=== PATIENT | male | born 1945 | race Caucasian/White ===

== ENCOUNTER 2018-08-02 12:50 | Inpatient (IN) | payer OTHER ==
--- NOTE | 2018-08-02 13:44 | RAD REPORT ---
EXAM DESCRIPTION: RAD - Chest Single View - 08/02/2018 1:36 pm CLINICAL HISTORY: COPD;SOB Chest pain. COMPARISON: No comparisons FINDINGS: Portable technique limits examination quality. Advanced emphysematous changes are present throughout the lungs. The heart is normal in size. No disp laced fractures. IMPRESSION: Prominent COPD.
[2018-08-02] MEDS ORDERED: ALBUTEROL 2.5 MG/3 ML NEB SOL ONE (14:19)
[2018-08-02] MEDS ORDERED: predniSONE 20 MG TAB ONE (14:19)
[2018-08-02] MEDS ORDERED: IPRATROPIUM BROM 0.5MG/2.5ML ONE (14:19)
[2018-08-02 15:27] LABS: ALT/SGPT 20 U/L (12-78); AST/SGOT 7 U/L (15-37); Albumin 3.1 g/dL (3.4-5.0); Alkaline Phosphatase 176 U/L (45-117); BUN Blood Urea Nitrogen 33 mg/dL (7-18); Bicarbonate 26 mmol/L (21-32); Bilirubin Direct 0.4 mg/dL (0-0.2); Bilirubin Total 0.8 mg/dL (0.2-1.0); Glucose Level 167 mg/dL (74-106); Magnesium 2.1 mg/dL (1.8-2.4); NT PRO-BNP 522 pg/mL (<125); Potassium 4.6 mmol/L (3.5-5.1); Protein, Total 8.1 g/dL (6.4-8.2); Sodium Level 137 mmol/L (136-145); Troponin (Emerg Dept Use Only) < 0.02 ng/mL (0.0-0.045)
[2018-08-02 15:33] LABS: Protime INR 1.08
[2018-08-02 15:35] LABS: Absolute Lymphocytes (CBC) 1.2 K/uL (0.7-4.9); Absolute Monocytes 0.9 K/uL (0.1-1.3); Absolute Neutrophil 11.5 K/uL (1.8-8.0); Basophils % 0.3 % (0-1.3); Eosinophils % 0.3 % (0-4.4); Hematocrit 39.6 % (39.6-49.0); Lymphocytes % 8.6 % (15.3-44.8); MPV 8.6 fL (7.6-11.3); Monocytes % 6.5 % (3.3-12.3); RBC Red Blood Cell Count 4.42 M/uL (4.33-5.43)
[2018-08-02] MEDS ORDERED: HYDROCODONE/APAP 5/325 MG TAB ONE (16:14)
[2018-08-02] MEDS ORDERED: LEVALBUTEROL 1.25 MG/3 ML NEB ONE (16:14)
--- NOTE | 2018-08-02 17:10 | EDPHYS ---
Physician Documentation [facility] Name: Frank López Age: 73 yrs Sex: Male : 1945 Arrival Date: 08/02/2018 Time: 12:52 Bed 8 Private MD: ED Physician Alejandro Medeiros HPI: 08/02 14:00 This 73 yrs old Male presents to ER via Wheelchair with complaints of pm1 Breathing Difficulty. 14:00 The patient has shortness of breath at rest. Onset: The symptoms/episode began/occurred pm1 5 day(s) ago. Duration: The symptoms are chronic. The patient's shortness of breath is aggravated by light activity, is alleviated by nothing. Associated signs and symptoms: Pertinent positives: productive cough, Pertinent negatives: chest pain, diaphoresis, dizziness, fever, nausea, vomiting. Severity of symptoms: in the emergency department the symptoms are worse. The patient has experienced similar episodes in the past, chronically. The patient has not recently seen a physician, the patient's primary care provider is Dr. VALDIVIA. Patient with Hx of COPD. Uses oxygen at home typically 3-4 L. Shortness of breath progressively getting worse over the past 5 days. Today the patient had to use 6L NC. Shortness of breath did not improve and his O2 saturation only increased to 90% with 6L. Historical: - Allergies: 12:56 Codeine; la1 12:56 Sulfa (Sulfonamide Antibiotics); la1 - PMHx: 12:56 COPD; nephrectomy; Hypertension; Diabetes - NIDDM; High Cholesterol; la1 - Immunization history:: Adult Immunizations up to date. - Social history:: Smoking status: Patient/guardian denies using tobacco, the patient reports quitting approximately 1 years ago. - Ebola Screening: : No symptoms or risks identified at this time. ROS: 14:00 Constitutional: Negative for fever, chills, and weight loss, Eyes: Negative for injury, pm1 pain, redness, and discharge, ENT: Negative for injury, pain, and discharge, Neck: Negative for injury, pain, and swelling, Cardiovascular: Negative for chest pain, palpitations, and edema, Abdomen/GI: Negative for abdominal pain, nausea, vomiting, diarrhea, and constipation. 14:00 Back: Negative for injury and pain, : Negative for injury, bleeding, discharge, and swelling, MS/Extremity: Negative for injury and deformity, Skin: Negative for injury, rash, and discoloration, Neuro: Negative for headache, weakness, numbness, tingling, and seizure. 14:00 Respiratory: Positive for cough, dyspnea on exertion, shortness of breath, wheezing. Exam: 14:00 Constitutional: This is a well developed, well nourished patient who is awake, alert, pm1 and in no acute distress. Head/Face: Normocephalic, atraumatic. Eyes: Pupils equal round and reactive to light, extra-ocular motions intact. Lids and lashes normal. Conjunctiva and sclera are non-icteric and not injected. Cornea within normal limits. Periorbital areas with no swelling, redness, or edema. ENT: Nares patent. No nasal discharge, no septal abnormalities noted. Tympanic membranes are normal and external auditory canals are clear. Oropharynx with no redness, swelling, or masses, exudates, or evidence of obstruction, uvula midline. Mucous membranes moist. Neck: Trachea midline, no thyromegaly or masses palpated, and no cervical lymphadenopathy. Supple, full range of motion without nuchal rigidity, or vertebral point tenderness. No Meningismus. Chest/axilla: Normal chest wall appearance and motion. Nontender with no deformity. No lesions are appreciated. Cardiovascular: Regular rate and rhythm with a normal S1 and S2. No gallops, murmurs, or rubs. Normal PMI, no JVD. No pulse deficits. 14:00 Abdomen/GI: Soft, non-tender, with normal bowel sounds. No distension or tympany. No guarding or rebound. No evidence of tenderness throughout. Back: No spinal tenderness. No costovertebral tenderness. Full range of motion. Skin: Warm, dry with normal turgor. Normal color with no rashes, no lesions, and no evidence of cellulitis. MS/ Extremity: Pulses equal, no cyanosis. Neurovascular intact. Full, normal range of motion. 14:00 Respiratory: the patient does not display signs of respiratory distress, Breath sounds: wheezing: is heard diffusely. 14:00 Neuro: Orientation: is normal, Motor: is normal, moves all fours. Vital Signs: 12:56 BP 154 / 86; Pulse 108; Resp 22; Temp 98.4; Pulse Ox 90% on 6 lpm NC; Weight 99.79 kg; la1 Height 5 ft. 9 in. (175.26 cm); 14:30 BP 127 / 82; Pulse 105; Resp 24; Pulse Ox 96% ; bp 15:21 BP 131 / 112; Pulse 106; Resp 24; Pulse Ox 95% on 5 lpm NC; bp 16:10 BP 126 / 82; Pulse 108; Resp 13; Pulse Ox 96% on Nebulizer Mask; bp 17:49 BP 122 / 67; Pulse 109; Resp 28; Pulse Ox 94% on 4 lpm NC; bp 18:44 BP 121 / 65; Pulse 106; Resp 23; Pulse Ox 93% ; bp 19:06 BP 110 / 68; Pulse 100; Resp 22 S; Pulse Ox 94% on 4 lpm NC; jd3 19:54 BP 137 / 99; Pulse 94; Resp 17 S; Pulse Ox 94% on 4 lpm NC; jd3 12:56 Body Mass Index 32.49 (99.79 kg, 175.26 cm) la1 MDM: 13:16 Patient medically screened. pm1 17:01 Data reviewed: vital signs. Data interpreted: Pulse oximetry: on room air is 96 %. pm1 Interpretation: normal. Counseling: I had a detailed discussion with the patient and/or guardian regarding: the historical points, exam findings, and any diagnostic results supporting the discharge/admit diagnosis, lab results, radiology results, the need for further work-up and treatment in the hospital. 19:32 ED course: Patient does not want to be transferred to the [place]. Would like to be admitted pm1 to the hospital here. 08/02 13:25 Order name: Basic Metabolic Panel; Complete Time: 15:45 pm1 08/02 13:25 Order name: CBC with Diff; Complete Time: 15:45 pm1 08/02 13:25 Order name: LFT's; Complete Time: 15:45 pm1 08/02 13:25 Order name: Magnesium; Complete Time: 15:45 pm1 08/02 13:25 Order name: NT PRO-BNP; Complete Time: 15:45 pm1 08/02 13:25 Order name: PT-INR; Complete Time: 15:45 pm1 08/02 13:25 Order name: Troponin (emerg Dept Use Only); Complete Time: 15:45 pm1 08/02 13:25 Order name: XRAY Chest (1 view); Complete Time: 14:06 pm1 08/02 13:25 Order name: Flu; Complete Time: 14:37 pm1 08/02 13:25 Order name: Blood Culture Adult (2) pm1 08/02 13:25 Order name: EKG; Complete Time: 13:26 pm1 08/02 13:25 Order name: Cardiac monitoring; Complete Time: 13:29 pm1 08/02 13:25 Order name: EKG - Nurse/Tech; Complete Time: 13:29 pm1 08/02 13:25 Order name: IV Saline Lock; Complete Time: 13:56 pm1 08/02 13:25 Order name: Labs collected and sent; Complete Time: 15:20 pm1 08/02 13:25 Order name: O2 Per Protocol; Complete Time: 13:30 pm1 08/02 13:25 Order name: O2 Sat Monitoring; Complete Time: 13:29 pm1 Administered Medications: 13:45 Drug: Albuterol - atroVENT (3:1) (2.5 mg - 0.5 mg) 3 ml Route: Nebulizer; bp 15:20 Follow up: Response: Marked relief of symptoms bp 13:45 Drug: predniSONE 60 mg Route: PO; bp 15:19 Follow up: Response: No adverse reaction bp 15:55 Drug: Xopenex (3) 1.25 mg Route: Inhalation; bp 15:55 Drug: [place] 5 mg-325 mg 1 tabs Route: PO; bp 16:57 Follow up: Response: No adverse reaction; Pain is decreased bp 17:10 Drug: Rocephin 1 grams Route: IV; Rate: calculated rate; Site: right forearm; bp 17:49 Follow up: IV Status: Completed infusion; IV Intake: 100ml bp 18:30 Drug: AZITHromycin 500 mg Route: IVPB; Infused Over: 1 hrs; Site: right forearm; bp 19:43 Follow up: Response: No adverse reaction; IV Status: Completed infusion jd3 Disposition: 08/02/18 19:34 Hospitalization ordered by Andre Ortiz for Observation. Preliminary diagnosis is Chronic obstructive pulmonary disease with (acute) exacerbation. - Bed requested for Telemetry/MedSurg (observation). - Status is Observation. ea - Condition is Stable. - Problem is new. - Symptoms have improved. UTI on Admission? No Addendum: 08/13/2018 15:46 Co-signature as Attending Physician, Alejandro Medeiros MD Available for consultation at p s1 all times. . Signatures: Dispatcher [employer] EDRosales Dietz RN RN la1 Anastasia Escobar RN RN cg Brian Snowden, SALES REPRESENTATIVE ADVERTISING SALES REPRESENTATIVE ADVERTISING pm1 Meagan Walters RN RN ea Pato Fregoso RN Alejandro Dick MD MD ps1 Davies, Jonathon RN jd3 Corrections: (The following items were deleted from the chart) 08/02 19:33 17:10 08/02/2018 17:10 Transfer ordered to [facility] [address] Diagnosis is Chronic obstructive pulmonary disease with (acute) exacerbation. Reason for transfer: Private Physician at Transferring [facility]. Accepting physician is [place]. Condition is Stable. Problem is new. Symptoms have improved. pm1 20:12 19:34 Hospitalization Ordered by Andre Ortiz MD for Observation. Preliminary cg diagnosis is Chronic obstructive pulmonary disease with (acute) exacerbation. Bed requested for Telemetry/MedSurg (observation). Status is Observation. Condition is Stable. Problem is new. Symptoms have improved. UTI on Admission? No. pm1 21:04 20:12 08/02/2018 19:34 Hospitalization Ordered by Andre Ortiz MD for Observation. ea Preliminary diagnosis is Chronic obstructive pulmonary disease with (acute) exacerbation. Bed requested for Telemetry/MedSurg (observation). Status is Observation. Condition is Stable. Problem is new. Symptoms have improved. UTI on Admission? No. cg
--- NOTE | 2018-08-02 17:10 | ER ---
Nurse's Notes [facility] Name: Frank López Age: 73 yrs Sex: Male : 1945 Arrival Date: 08/02/2018 Time: 12:52 Bed 8 Private MD: Diagnosis: Chronic obstructive pulmonary disease with (acute) exacerbation Presentation: 08/02 12:54 Presenting complaint: Patient states: I have COPD and I have been having increasing SOB la1 over the last 5 days. I am supposed to be on 2L 02 but I have it at six and my sats are still only 90%. Transition of care: patient was not received from another setting of care. Onset of symptoms was August 02, 2018. Risk Assessment: Do you want to hurt yourself or someone else? Patient reports no desire to harm self or others. Initial Sepsis Screen: Does the patient meet any 2 criteria? No. Patient's initial sepsis screen is negative. Does the patient have a suspected source of infection? No. Patient's initial sepsis screen is negative. Care prior to arrival: None. 12:54 Method Of Arrival: Wheelchair la1 12:54 Acuity: GAVI 3 la1 Triage Assessment: 19:42 Respiratory: Reports shortness of breath at rest Airway is patent Respiratory effort is jd3 even, unlabored, Respiratory pattern is regular, symmetrical, tachypnea the patient has mild shortness of breath. 19:42 Respiratory: Onset: The symptoms/episode began/occurred gradually. jd3 Historical: - Allergies: 12:56 Codeine; la1 12:56 Sulfa (Sulfonamide Antibiotics); la1 - PMHx: 12:56 COPD; nephrectomy; Hypertension; Diabetes - NIDDM; High Cholesterol; la1 - Immunization history:: Adult Immunizations up to date. - Social history:: Smoking status: Patient/guardian denies using tobacco, the patient reports quitting approximately 1 years ago. - Ebola Screening: : No symptoms or risks identified at this time. Screenin:17 Abuse screen: Denies threats or abuse. Denies injuries from another. Nutritional bp screening: No deficits noted. Tuberculosis screening: No symptoms or risk factors identified. Fall Risk None identified. Assessment: 13:16 General: Appears in no apparent distress. comfortable, obese, Behavior is calm, bp cooperative, appropriate for age. Pain: Denies pain. Neuro: Level of Consciousness is awake, alert, obeys commands, Oriented to person, place, time, situation, Appropriate for age. Cardiovascular: Rhythm is sinus tachycardia. Respiratory: Airway is patent Respiratory effort is even, labored, Respiratory pattern is tachypnea Breath sounds with wheezes. GI: No signs and/or symptoms were reported involving the gastrointestinal system. : No signs and/or symptoms were reported regarding the genitourinary system. EENT: No deficits noted. Derm: No deficits noted. Musculoskeletal: Circulation, motion, and sensation intact. Range of motion: intact in all extremities. 14:38 Reassessment: UNABLE TO OBTAIN BLOOD SPECIMEN, PHLEBOTOMY CONTACTED. bp 15:20 Reassessment: ALL CURRENT ORDERS COMPLETED, RESULTS PENDING. bp 17:00 Reassessment: HOSPITALIST DEFERRING ADMIT IN FAVOR OF [facility]. ABX INFUSING. bp 18:00 Reassessment: [facility], RESPONSE PENDING. NO S/S ACUTE bp DISTRESS AT THIS TIME. 19:06 Reassessment: Patient appears in no apparent distress at this time. No changes from jd3 previously documented assessment. Patient and/or family updated on plan of care and expected duration. Pain level reassessed. Patient is alert, oriented x 3, equal unlabored respirations, skin warm/dry/pink. 19:41 Reassessment: Patient appears in no apparent distress at this time. Patient and/or jd3 family updated on plan of care and expected duration. Pain level reassessed. Patient is alert, oriented x 3, equal unlabored respirations, skin warm/dry/pink. pt on phone with family member, and talking with provider, pt decided he wanted to hospitalized here [facility]. 19:53 Reassessment: Patient appears in no apparent distress at this time. No changes from jd3 previously documented assessment. Patient and/or family updated on plan of care and expected duration. Pain level reassessed. Patient is alert, oriented x 3, equal unlabored respirations, skin warm/dry/pink. Vital Signs: 12:56 BP 154 / 86; Pulse 108; Resp 22; Temp 98.4; Pulse Ox 90% on 6 lpm NC; Weight 99.79 kg; la1 Height 5 ft. 9 in. (175.26 cm); 14:30 BP 127 / 82; Pulse 105; Resp 24; Pulse Ox 96% ; bp 15:21 BP 131 / 112; Pulse 106; Resp 24; Pulse Ox 95% on 5 lpm NC; bp 16:10 BP 126 / 82; Pulse 108; Resp 13; Pulse Ox 96% on Nebulizer Mask; bp 17:49 BP 122 / 67; Pulse 109; Resp 28; Pulse Ox 94% on 4 lpm NC; bp 18:44 BP 121 / 65; Pulse 106; Resp 23; Pulse Ox 93% ; bp 19:06 BP 110 / 68; Pulse 100; Resp 22 S; Pulse Ox 94% on 4 lpm NC; jd3 19:54 BP 137 / 99; Pulse 94; Resp 17 S; Pulse Ox 94% on 4 lpm NC; jd3 12:56 Body Mass Index 32.49 (99.79 kg, 175.26 cm) la1 ED Course: 12:52 Patient arrived in ED. mr 12:55 Triage completed. la1 12:57 Arm band placed on right wrist. la1 13:06 Pato Fregoso RN is Primary Nurse. bp 13:16 Brian Snowden NP is PHCP. pm1 13:16 Alejandro Medeiros MD is Attending Physician. pm1 13:17 Patient has correct armband on for positive identification. Placed in gown. Bed in low bp position. Call light in reach. Side rails up X2. Adult w/ patient. 13:25 Inserted saline lock: 20 gauge in right forearm, using aseptic technique. bp 13:33 X-ray completed. Portable x-ray completed in exam room. Patient tolerated procedure sg4 well. 13:34 XRAY Chest (1 view) In Process Unspecified. EDMS 19:05 Primary Nurse role handed off by Pato Fregoso RN jd3 19:05 Rubén Grimes RN is Primary Nurse. jd3 19:33 Andre Ortiz MD is Hospitalizing Provider. pm1 20:06 No provider procedures requiring assistance completed. Patient admitted, IV remains in jd3 place. Administered Medications: 13:45 Drug: Albuterol - atroVENT (3:1) (2.5 mg - 0.5 mg) 3 ml Route: Nebulizer; bp 15:20 Follow up: Response: Marked relief of symptoms bp 13:45 Drug: predniSONE 60 mg Route: PO; bp 15:19 Follow up: Response: No adverse reaction bp 15:55 Drug: Xopenex (3) 1.25 mg Route: Inhalation; bp 15:55 Drug: [place] 5 mg-325 mg 1 tabs Route: PO; bp 16:57 Follow up: Response: No adverse reaction; Pain is decreased bp 17:10 Drug: Rocephin 1 grams Route: IV; Rate: calculated rate; Site: right forearm; bp 17:49 Follow up: IV Status: Completed infusion; IV Intake: 100ml bp 18:30 Drug: AZITHromycin 500 mg Route: IVPB; Infused Over: 1 hrs; Site: right forearm; bp 19:43 Follow up: Response: No adverse reaction; IV Status: Completed infusion jd3 Intake: 17:49 IV: 100ml; Total: 100ml. bp Outcome: 17:10 ER care complete, transfer ordered by MD. pm1 19:34 Decision to Hospitalize by Provider. pm1 21:00 Admitted to Med/surg accompanied by tech, via stretcher, with chart. jd3 21:00 Condition: stable 21:00 Instructed on the need for admit, Demonstrated understanding of instructions. 21:04 Patient left the ED. bridgette Signatures: Dispatcher [employer] EDWY Juan Diego Linda SalehRosales RN RN la1 Brian Snowden, TECHNICAL SUPPORT TECHNICIAN TECHNICAL SUPPORT TECHNICIAN pm1 Meagan Walters RN RN ea Davies, Jonathon, RN RN jd3 Peltier, Brian, RN RN bp Garcia, Susana 4
[2018-08-02] MEDS ORDERED: CEFTRIAXONE 1000 MG/VIAL ONE (17:25)
[2018-08-02] MEDS ORDERED: NA CHLORIDE 0.9% 100 ML IV ONE (17:25)
[2018-08-02] MEDS ORDERED: AZITHROMYCIN 500 MG/250 ML BAG ONE (18:34)
--- NOTE | 2018-08-02 20:12 | P.HP ---
Certification for Inpatient Patient admitted to: Inpatient With expected LOS: >2 Midnights Practitioner: I am a practitioner with admitting privileges, knowledge of patient current condition, hospital course, and medical plan of care. Services: Services provided to patient in accordance with Admission requirements found in Title 42 Section 412.3 of the Code of Federal Regulations Patient History Date of Service: 08/02/18 Reason for admission: COPD exacerbation History of Present Illness: Mr Hubbard is a 73 years old male with history of NIDDM, CKD, Dyslipidemia, COPD on home oxygen at 2-3 L per NC, who start about 5 days ago with progressive SOB associated with dry cough. He was noticed that was getting more tired walking short distances. His sputum changed from clear to yellowish. He denied fever or chills. The patient today was feeling significantly worse, he increased his O2 to 6 L, with no improvement. At arrival his O2 Sat was 93 % on 6 L, afebrile, dyspneic. He improved after received steroids and breathing treatments. Home medications list reviewed: Yes - Past Medical/Surgical History -: COPD -: diabetes mellitus II -: CKD -: dyslipidemia -: Nephrectomy - Family History Family History: Reviewed- Non-Contributory - Social History Smoking Status: Former smoker Alcohol use: No CD- Drugs: No Place of Residence: Home Review of Systems 10-point ROS is otherwise unremarkable Physical Examination - Physical Exam General: Alert, In no apparent distress HEENT: Atraumatic, PERRLA, Mucous membr. moist/pink, EOMI, Sclerae nonicteric Neck: Supple, 2+ carotid pulse no bruit, No LAD, Without JVD or thyroid abnormality Respiratory: Diminished, Expiratory wheezes Cardiovascular: Regular rate/rhythm, Normal S1 S2 Gastrointestinal: Normal bowel sounds, No tenderness Musculoskeletal: No tenderness Integumentary: No rashes Neurological: Normal speech, Normal strength at 5/5 x4 extr, Normal tone, Normal affect Lymphatics: No axilla or inguinal lymphadenopathy - Studies Laboratory Data (last 24 hrs) 08/02/18 14:51: PT 12.7 H, INR 1.08 08/02/18 14:51: WBC 13.6 H, Hgb 13.1 L, Hct 39.6, Plt Count 261 08/02/18 14:51: Sodium 137, Potassium 4.6, BUN 33 H, Creatinine 1.91 H, Glucose 167 H, Magnesium 2.1, Total Bilirubin 0.8, AST 7 L, ALT 20, Alkaline Phosphatase 176 H Microbiology Data (last 24 hrs): 08/02/18 13:55 Nasopharnyx Influenza Type A Antigen Screen - Final 08/02/18 13:55 Nasopharnyx Influenza Type B Antigen Screen - Final Assessment and Plan - Problems (Diagnosis) (1) COPD exacerbation Current Visit: Yes Status: Acute (2) Diabetes mellitus Current Visit: Yes Status: Acute Qualifiers: Diabetes mellitus type: type 2 Diabetes mellitus senior living insulin use: without senior living use Diabetes mellitus complication status: with unspecified complications Qualified Code(s): E11.8 - Type 2 diabetes mellitus with unspecified complications (3) Dyslipidemia Current Visit: Yes Status: Acute (4) CKD (chronic kidney disease) Current Visit: Yes Status: Acute Qualifiers: Chronic kidney disease stage: unspecified stage Qualified Code(s): N18.9 - Chronic kidney disease, unspecified - Plan The patient will be admitted to the hospital due to COPD exacerbation. He has leukocytosis, no fever, CXR shows chronic changes consistent with COPD, no obvious infiltrate. Will order empiric IV broad spectrum antibiotics, IV steroids and breathing treatments. Consult Dr Garcia. - Advance Directives Does patient have a Living Will: No Does patient have a Durable POA for Healthcare: No - Code Status/Comfort Care Code Status Assessed: Yes Code Status: Full Code
[2018-08-02] MEDS ORDERED: IPRATROPIUM BROM 0.5MG/2.5ML NEB PRN (21:24)
[2018-08-02] MEDS ORDERED: ALBUTEROL 2.5 MG/3 ML NEB SOL NEB PRN (21:24)
[2018-08-02] MEDS: INSULIN -REGULAR HUMAN 50 UNIT/0.5 ML ML SQ SCH (21:24)
[2018-08-02] MEDS ORDERED: ACETAMINOPHEN 500 MG TAB PO PRN (21:24)
[2018-08-02] MEDS ORDERED: ONDANSETRON 4 MG/2 ML VIAL IV PRN (21:24)
[2018-08-02] MEDS: NA CHLORIDE 0.9% 1,000 ML IV SCH (21:34)
[2018-08-02 22:02] VITALS: BMI 32.5
[2018-08-02] MEDS: METHYLPREDNISOLONE 125 MG INJ IV SCH (23:27)
[2018-08-02] MEDS: TRAMADOL HCL 50 MG TAB PO PRN (23:27)
[2018-08-03] MEDS: NA CHLORIDE 0.9% 1,000 ML IV SCH (05:25)
[2018-08-03] MEDS: METHYLPREDNISOLONE 125 MG INJ IV SCH ×3 (05:25→17:17)
[2018-08-03 05:46] LABS: Absolute Lymphocytes (CBC) 0.4 K/uL (0.7-4.9); Absolute Monocytes 0.2 K/uL (0.1-1.3); Absolute Neutrophil 8.6 K/uL (1.8-8.0); Basophils % 0.1 % (0-1.3); Hematocrit 36.8 % (39.6-49.0); Lymphocytes % 4.1 % (15.3-44.8); MPV 8.7 fL (7.6-11.3); Monocytes % 1.7 % (3.3-12.3); RBC Red Blood Cell Count 4.07 M/uL (4.33-5.43)
[2018-08-03 05:59] LABS: Potassium 4.8 mmol/L (3.5-5.1)
[2018-08-03 07:45] LABS: Blood Morphology Comment NOT SEEN (NOT SEEN); Platelet Estimate ADEQ; Urine White Blood Cell Casts OK
--- NOTE | 2018-08-03 07:56 | EKG ---
Test Date: 2018-08-02 Test Time: 13:14:22 Manager Of Global: GILA MEASUREMENT RESULTS: Intervals: Rate: 98 ID: [id number] QRSD: 86 QT: 346 QTc: 441 [place]: P: 79 ID: [id number] QRS: 62 T: 78 INTERPRETIVE STATEMENTS: Normal sinus rhythm Normal ECG Compared to ECG 12/15/2006 13:55:57 Sinus bradycardia no longer present T-wave abnormality no longer present Possible ischemia no longer present Electronically Signed On 08-03-18 07:54:03 PLASTICS SPREADING MACHINE OPERATOR by Humble Will
[2018-08-03] MEDS: INSULIN -REGULAR HUMAN 50 UNIT/0.5 ML ML SQ SCH ×4 (08:25→21:09)
[2018-08-03] MEDS ORDERED: AZITHROMYCIN IV 500 MG in NA CHLORIDE 0.9% 250 ML IVPB SCH ×2 (09:00→17:00)
[2018-08-03] MEDS ORDERED: CEFTRIAXONE 1 GM/NS 50 ML 1 GM/50 ML BAG IV SCH (09:00)
[2018-08-03] MEDS: TRAMADOL HCL 50 MG TAB PO PRN (10:42)
[2018-08-03] MEDS ORDERED: CEFTRIAXONE/SWI 1gm 1 GM/10 ML SYR IV SCH (17:00)
[2018-08-03] MEDS ORDERED: BUSPIRONE HCL 5 MG TABLET PO PRN (17:39)
--- NOTE | 2018-08-03 17:50 | P.PN ---
Subjective Date of Service: 08/03/18 Primary Care Provider: Dr. Cornell ([facility]) Chief Complaint: COPD exacerbation Subjective: No new changes, No C/O voiced, Improving Patient seen and examined at bedside. No family at bedside. Chart reviewed and case discussed with nursing staff. Review of Systems 10-point ROS is otherwise unremarkable Physical Examination - Vital Signs Temperature: 98.7 F Blood Pressure: 175/99 Pulse: 88 Respirations: 20 Pulse Ox (%): 93 - Physical Exam General: Alert, In no apparent distress, Oriented x3 HEENT: Atraumatic, PERRLA, EOMI Neck: Supple, JVD not distended Respiratory: Expiratory wheezes Cardiovascular: Regular rate/rhythm, Normal S1 S2 Gastrointestinal: Normal bowel sounds, No tenderness Musculoskeletal: No tenderness Integumentary: No rashes Neurological: Normal speech, Normal tone, Normal affect Lymphatics: No axilla or inguinal lymphadenopathy - Studies Microbiology Data (last 24 hrs): 08/02/18 13:55 Nasopharnyx Influenza Type A Antigen Screen - Final 08/02/18 13:55 Nasopharnyx Influenza Type B Antigen Screen - Final Assessment And Plan - Current Problems (Diagnosis) (1) COPD exacerbation Current Visit: Yes Status: Acute (2) Diabetes mellitus Current Visit: Yes Status: Acute Qualifiers: Diabetes mellitus type: type 2 Diabetes mellitus half-way insulin use: without half-way use Diabetes mellitus complication status: with unspecified complications Qualified Code(s): E11.8 - Type 2 diabetes mellitus with unspecified complications (3) CKD (chronic kidney disease) Current Visit: Yes Status: Acute Qualifiers: Chronic kidney disease stage: unspecified stage Qualified Code(s): N18.9 - Chronic kidney disease, unspecified (4) Dyslipidemia Current Visit: Yes Status: Acute - Plan Patient Problems: COPD exacerbation (Acute) J44.1 Improving. Continue IV antibiotics, DuoNeb, IV steroids Oxygen per protocol; it seems that patient is already on baseline home oxygen Pulmonology consult. CKD (chronic kidney disease) (Acute) N18.9 Avoid nephrotoxic drugs. Monitor creatinine Diabetes mellitus (Acute) E11.9 Continue Accu-Cheks, mild sliding scale insulin. Strict blood sugar monitoring and patient is on steroids Dyslipidemia (Acute) E78.5 Continue statin DVT prophylaxis: Lovenox GI prophylaxis: Not needed Diet: Heart healthy Disposition: Pending symptomatic improvement. If doing well morning, discharge home tomorrow. Physician Review: Patient Assessed, Agree with Above Assessment and Plan Time Spent Managing PTS Care (In Minutes): 35
[2018-08-03] MEDS: ATORVASTATIN 40 MG TAB PO SCH (21:08)
[2018-08-03] MEDS: GABAPENTIN 100 MG CAP PO SCH (21:09)
[2018-08-03] MEDS: TRAZODONE 50 MG TABLET PO PRN (21:09)
[2018-08-04] MEDS: METHYLPREDNISOLONE 125 MG INJ IV SCH ×2 (00:05→05:26)
[2018-08-04 00:44] LABS: Urine Appearance CLOUDY; Urine Bilirubin NEGATIVE (NEG); Urine Blood 1+ (NEG); Urine Color YELLOW; Urine Glucose 2+ (NEG); Urine Protein 3+ (NEG); Urine Urobilinogen 0.2 mg/dL (0.2-1.0); Urine pH 5.5 (5.0-7.0)
[2018-08-04 00:52] LABS: Urine Microscopic Reflex ORDER UMIC
[2018-08-04 02:10] LABS: Urine Bacteria 20-50 /HPF (NONE SEEN); Urine Culture Reflex Order REFLEXED; Urine RBC <5 /HPF (NONE SEEN)
[2018-08-04] MEDS: ASPIRIN EC 81 MG TAB PO SCH (08:33)
[2018-08-04] MEDS: INSULIN -REGULAR HUMAN 50 UNIT/0.5 ML ML SQ SCH ×4 (08:33→20:58)
[2018-08-04] MEDS: PARoxetine HCl 10 MG TAB PO SCH (08:33)
[2018-08-04] MEDS: ALLOPURINOL 100 MG TAB PO SCH (08:33)
[2018-08-04] MEDS: FINASTERIDE 5 MG TAB PO SCH (08:33)
[2018-08-04] MEDS: LISINOPRIL 20 MG TAB PO SCH (08:34)
[2018-08-04] MEDS ORDERED: AMLODIPINE 10 MG TAB PO SCH (09:00)
[2018-08-04] MEDS: NA CHLORIDE 0.9% 1,000 ML IV SCH ×2 (11:00→20:58)
--- NOTE | 2018-08-04 11:06 | P.CNS ---
Date of Consult: 08/04/18 Primary Care Provider: Dr. Cornell ([place] [facility]) Chief Complaint: COPD exacerbation History of Present Illness: Patient is 73 years of age with a history of COPD on oxygen has been having problems for the past 4-5 days complaining of worsening dyspnea on mild exertion he quit smoking in August and is compliant with his bronchodilators at home last flare up was 2-3 months ago and patient was treated with antibiotics and he recovered he does not currently smoke denies any edema of his lower extremity is a little better denies any fever chills follows up at the [place] Allergies codeine Allergy (Verified 08/02/18 20:18) Shortness of breath Sulfa (Sulfonamide Antibiotics) Allergy (Verified 08/02/18 20:18) Shortness of breath Home Medications: Amlodipine Besylate 5 mg PO DAILY 08/02/18 Atorvastatin Calcium 20 mg PO BEDTIME 08/02/18 Finasteride [Proscar] 5 mg PO DAILY 08/02/18 Gabapentin 100 mg PO BEDTIME 08/02/18 Lisinopril 40 mg PO DAILY 08/02/18 Paroxetine HCl [Paxil] 40 mg PO DAILY 08/02/18 Allopurinol [Zyloprim] 100 mg PO DAILY 08/03/18 Aspirin [Aspir-Low] 81 mg PO DAILY 08/03/18 Buspirone HCl [Buspar] 10 mg PO BID PRN 08/03/18 Glipizide [Glucotrol] 10 mg PO DAILY 08/03/18 Saxagliptin HCl [Onglyza] 2.5 mg PO DAILY 08/03/18 - Past Medical/Surgical History Diabetic: Yes -: COPD -: diabetes mellitus II -: CKD -: dyslipidemia -: Coronary artery disease -: L. Nephrectomy r/t 1994 -: Status post stent -: Peripheral vascular disease - Social History Smoking Status: Former smoker Alcohol use: No CD- Drugs: No Caffeine use: Yes Place of Residence: Home Review of Systems Unremarkable Respiratory: Shortness of Breath Physical Examination Temp Pulse Resp BP Pulse Ox 97.3 F 83 20 148/89 H 95 08/04/18 08:00 08/04/18 08:34 08/04/18 08:00 08/04/18 08:34 08/04/18 08:00 General: Alert HEENT: Atraumatic Neck: Supple Respiratory: Expiratory wheezes Cardiovascular: No edema, Regular rate/rhythm, Normal S1 S2 - Problems (1) COPD exacerbation Current Visit: Yes Status: Acute Plan: Patient is 73 years of age former smoker admitted with COPD exacerbation he does take nebulizers at home in addition to Symbicort and Spiriva patient has chronic renal insufficiency. Blood sugar is elevated oxygenation satisfactory doubt sepsis Patient's sputum cultures are pending Dc Zithromax change to p.o. prednisone is a diabetic patient to resume with Symbicort Spiriva nebulizers at home and is his 2nd exacerbation I have encouraged him to follow with me in my office will [facility] also consider adding Daliresp. Chest x-ray shows some COPD changes the patient's kidney functions is not improve with IV fluids consider Lasix and possibly review of Mu inhibitors
[2018-08-04] MEDS ORDERED: METHYLPREDNISOLONE 40 MG INJ IV SCH (12:00)
--- NOTE | 2018-08-04 12:43 | PN ---
Subjective: The patient lying in bed. He looks comfortable. Continued to be short of breath. He i s on 4 L nasal cannula. His oxygen at home around 3 L usually. He has no chest pain, no abdominal p ain, no fever, no chills overnight. Good appetite. He was hoping to go to home today. Objective: Vital Signs: Blood pressure is 184/89, respiratory rate 20, pulse 83, temperature 97.3, saturating 95% on 4 L nasal cannula. General: The patient is alert and oriented x3. He does look in mild distress. HEENT: Atraumatic and normocephalic. PERRLA. Oral mucosa is moist. Neck: Supple. No JVD. No bruit. Chest: Clear to auscultation with expiratory wheezing. Heart: Regular rate and rhythm. S1, S2 normal. No gallop or murmur. Abdomen: Soft, nontender. No masses. No hepatosplenomegaly. Positive bowel sounds. Extremities: No clubbing, cyanosis, or edema. No calf tenderness. Neurologic: Grossly intact. Cranial nerve 2 through 12 intact. Normal sensation. Normal reflexes. Normal muscle strength. Laboratory Data: Today showed CBC within normal except for hemoglobin 4.3, PT of 12.7, INR 1.08. Ch emistry within normal except for BUN of 48, creatinine of 2.5, glucose of 361, calcium 9.3. Microbio logy; UA still pending. Flu screening was negative. Assessment And Plan: This is a 73-year-old gentleman with history of severe chronic obstructive pulm onary disease on home oxygen at 3 L. 1.Chronic obstructive pulmonary disease exacerbation. Slightly better. The patient continued to be on 4 L nasal cannula. His O2 placed at home between L. Continue IV antibiotic, I will r educe to 40 mg every 6 hours instead of 60. 2.Chronic renal insufficiency, getting worse. I will start mild hydration at 75 cc of normal saline . 3.Diabetes mellitus, not controlled. I will check hemoglobin A1c. I will switch his insulin slidin g scale to high outpatient. Glucose is in the range of 300, resume home medication as before. 4.Hyperlipidemia, on statin. 5.Benign prostatic hyperplasia, I will continue on finasteride. 6.Insomnia. Continue on p.r.n. trazodone. 7.Deep vein thrombosis prophylaxis, on Lovenox. I will start that now. 8.Discharge plan hopefully in a.m., if stable. SHELBY/JAROD Voice ID: [id number] Report ID: [id number]
[2018-08-04] MEDS: predniSONE 20 MG TAB PO SCH ×2 (14:09→21:01)
[2018-08-04] MEDS: ENOXAPARIN 30 MG/0.3 ML SQ SCH (14:09)
[2018-08-04] MEDS: glipiZIDE 5 MG TAB PO SCH (14:09)
[2018-08-04] MEDS ORDERED: GUAIFENESIN/DM 5 ML UCUP PO PRN (14:16)
[2018-08-04] MEDS: GABAPENTIN 100 MG CAP PO SCH (20:59)
[2018-08-04] MEDS: ATORVASTATIN 40 MG TAB PO SCH (20:59)
[2018-08-04] MEDS: TRAMADOL HCL 50 MG TAB PO PRN (21:00)
[2018-08-05] MEDS: AMLODIPINE 10 MG TAB PO SCH (08:32)
[2018-08-05] MEDS: glipiZIDE 5 MG TAB PO SCH (08:32)
[2018-08-05] MEDS: PARoxetine HCl 10 MG TAB PO SCH (08:32)
[2018-08-05] MEDS: ASPIRIN EC 81 MG TAB PO SCH (08:33)
[2018-08-05] MEDS: ALLOPURINOL 100 MG TAB PO SCH (08:33)
[2018-08-05] MEDS: LISINOPRIL 20 MG TAB PO SCH (08:33)
[2018-08-05] MEDS: FINASTERIDE 5 MG TAB PO SCH (08:33)
[2018-08-05] MEDS: ENOXAPARIN 30 MG/0.3 ML SQ SCH ×2 (08:34→08:38)
[2018-08-05] MEDS: INSULIN -REGULAR HUMAN 50 UNIT/0.5 ML ML SQ SCH ×4 (08:34→21:56)
[2018-08-05] MEDS: predniSONE 20 MG TAB PO SCH ×2 (08:34→21:55)
[2018-08-05] MEDS ORDERED: HOME MED 1 EA UNK (Glipizide [Glucotrol] 10 MG) PO SCH (09:00)
[2018-08-05] MEDS ORDERED: SAXAGLIPTIN HCL 2.5 MG PO SCH (09:00)
[2018-08-05] MEDS ORDERED: HYDRALAZINE HCL 20 MG/ML VIAL IV PRN (09:05)
[2018-08-05 09:49] LABS: Absolute Lymphocytes (CBC) 0.7 K/uL (0.7-4.9); Absolute Monocytes 0.4 K/uL (0.1-1.3); Absolute Neutrophil 13.2 K/uL (1.8-8.0); Basophils % 0.2 % (0-1.3); Lymphocytes % 4.9 % (15.3-44.8); MPV 8.3 fL (7.6-11.3); Monocytes % 3.1 % (3.3-12.3); RBC Red Blood Cell Count 4.27 M/uL (4.33-5.43)
[2018-08-05 10:03] LABS: Albumin 2.7 g/dL (3.4-5.0); Bilirubin Total 0.4 mg/dL (0.2-1.0); Potassium 4.4 mmol/L (3.5-5.1); Protein, Total 6.9 g/dL (6.4-8.2)
--- NOTE | 2018-08-05 10:04 | RAD REPORT ---
EXAM DESCRIPTION: RAD - Chest Pa And Lat (2 Views) - 08/05/2018 9:44 am CLINICAL HISTORY: Chest pain, shortness of breath, COPD or possible volume overload COMPARISON: August 02, 2018 TECHNIQUE: PA and lateral views of the chest were obtained. FINDINGS: The lungs are fibrotic as a baseline with partial flattening of the hemidiaphragm and incr eased retrosternal space. Chronic interstitial lung process is actually less prominent than seen Dece mber 23. Upper lobe vasculature within normal limits. Heart size is normal. No significant failure or volume overload. No pleural effusion or pneumothorax seen. No acute bony finding noted. No aorti c abnormality. IMPRESSION: COPD pattern is present with lung markings diminished in prominence from August 02. No new or progressive focal lung process and no failure or volume overload.
--- NOTE | 2018-08-05 10:14 | RAD REPORT ---
EXAM DESCRIPTION: US - Renal Ultrasound-Complete - 08/05/2018 9:49 am CLINICAL HISTORY: renal insuff Left nephrectomy history COMPARISON: RP EXAM COMPLETE dated 04/20/2014 FINDINGS: The left kidney is surgically absent. Left renal fossa shows no unusual finding. The right kidney measures 11.6 x 6.3 x 5.9 cm. No hydronephrosis, focal mass or perinephric fluid. Ri ght kidney has a normal echogenicity. The urinary bladder is incompletely distended without gross abnormality seen. IMPRESSION: Unremarkable right kidney. Status post left nephrectomy.
[2018-08-05] MEDS: CIPROFLOXACIN 400mg IV 400 MG/200 ML BAG IV SCH ×2 (10:27→21:00)
[2018-08-05 10:56] LABS: Blood Morphology Comment NOT SEEN (NOT SEEN); Platelet Estimate ADEQ
--- NOTE | 2018-08-05 13:20 | PN ---
Subjective: Currently, the patient is lying in bed. He looks comfortable. He continued to be short of breath. He is saturating mid 90s on 3 L, but he is still huffing and puffing while talking. No chest pain. No abdominal pain. He reported mild dysuria. Objective: Vital Signs: Currently, blood pressure is 180/96, respiratory rate 18, pulse 96, and tem perature 97.3. General: The patient is alert and oriented x3, does not look in any distress. HEENT: Atraumatic and normocephalic. PERRLA. Oral mucosa is moist. Neck: Supple. No JVP. No carotid bruits. Chest: Clear to auscultation with expiratory wheezing. Heart: Regular rate and rhythm. S1 and S2 normal. No gallop or murmur. Abdomen: Soft, nontender. No masses. No hepatosplenomegaly. Positive bowel sounds. Extremities: No clubbing, cyanosis, or edema. No calf tenderness. Neurologic: Grossly intact. Laboratory Data: Today all pending. Assessment And Plan: 1.Acute chronic obstructive pulmonary disease exacerbation. The patient continued to improve. He i s currently on oral prednisone. I appreciate Dr. Garcia's input. We will consider adding Spiriva and Symbicort per Dr. Garcia's recommendation. The patient will need to follow up with Dr. Scott holman as an outpatient to consider starting the new drug, Daliresp. 2.Chronic renal insufficiency. Creatinine clearance and creatinine were low all the way back to 201 1 with GFR around 40. Today's CMP is pending, but I will check kidney ultrasound. The patient was h ydrated slightly yesterday. I will stop hydration as Dr. Garcia was worried about volume overload causing the patient shortness of breath. I will check BNP, most likely can be elevated as the patien t has renal insufficiency. I will consider Lasix if chest x-ray showed volume overload this morning. 3.Diabetes mellitus, better today, but still not well controlled. Hemoglobin A1c was 7.1, so relati vely the patient has controlled glucose and I think his hyperglycemia now secondary to his steroid. Solu-Medrol was changed to prednisone yesterday and the patient was resumed on his home medication. 4.Urinary tract infection. Microbiology just showed the patient has urinary tract infection with St aphylococcus aureus. I will start the patient on Cipro twice a day. 5.Hypertension. Blood pressure is running very high. The patient is on lisinopril and amlodipine. I will add hydralazine for p.r.n. control. 6.Benign prostatic hyperplasia. The patient is on finasteride. 7.Insomnia. The patient is on trazodone. 8.Deep venous thrombosis prophylaxis. The patient is on Lovenox 30 given his renal insufficiency. 9.Discharge plan hopefully in a.m. if the patient continues to improve and kidney function stabilize d and glucose gets under control. SHELBY/DONL Voice ID: [id number] Report ID: [id number]
[2018-08-05] MEDS: TRAMADOL HCL 50 MG TAB PO PRN (17:01)
[2018-08-05] MEDS: ATORVASTATIN 40 MG TAB PO SCH (21:55)
[2018-08-05] MEDS: GABAPENTIN 100 MG CAP PO SCH (21:56)
[2018-08-05] MEDS: TRAZODONE 50 MG TABLET PO PRN (22:59)
[2018-08-06 05:49] LABS: Absolute Lymphocytes (CBC) 0.8 K/uL (0.7-4.9); Absolute Monocytes 0.5 K/uL (0.1-1.3); Absolute Neutrophil 10.1 K/uL (1.8-8.0); Basophils % 0.2 % (0-1.3); Hematocrit 37.8 % (39.6-49.0); Lymphocytes % 7.3 % (15.3-44.8); MPV 8.1 fL (7.6-11.3); Monocytes % 4.6 % (3.3-12.3); RBC Red Blood Cell Count 4.26 M/uL (4.33-5.43)
[2018-08-06 06:07] LABS: Albumin 2.7 g/dL (3.4-5.0); Bilirubin Total 0.4 mg/dL (0.2-1.0); Potassium 4.6 mmol/L (3.5-5.1); Protein, Total 6.4 g/dL (6.4-8.2)
[2018-08-06] MEDS: glipiZIDE 5 MG TAB PO SCH (08:30)
[2018-08-06] MEDS: INSULIN -REGULAR HUMAN 50 UNIT/0.5 ML ML SQ SCH (08:30)
[2018-08-06 08:38] VITALS: BP 167/88; TEMP 97.4
[2018-08-06] MEDS ORDERED: FUROSEMIDE 40 MG/4 ML VIAL IV SCH (09:00)
[2018-08-06] MEDS: CIPROFLOXACIN 400mg IV 400 MG/200 ML BAG IV SCH (09:53)
[2018-08-06] MEDS: ENOXAPARIN 30 MG/0.3 ML SQ SCH (09:56)
[2018-08-06] MEDS: PARoxetine HCl 10 MG TAB PO SCH (09:57)
[2018-08-06] MEDS: LISINOPRIL 20 MG TAB PO SCH (09:58)
[2018-08-06] MEDS: ALLOPURINOL 100 MG TAB PO SCH (09:58)
[2018-08-06] MEDS: FINASTERIDE 5 MG TAB PO SCH (09:58)
[2018-08-06] MEDS: AMLODIPINE 10 MG TAB PO SCH (09:59)
[2018-08-06] MEDS: predniSONE 20 MG TAB PO SCH (09:59)
[2018-08-06] MEDS: TRAMADOL HCL 50 MG TAB PO PRN (09:59)
[2018-08-06] MEDS: ASPIRIN EC 81 MG TAB PO SCH (09:59)
[2018-08-06 10:25] VITALS: O2SAT 95
--- NOTE | 2018-08-07 04:23 | DS ---
Date of Discharge: 08/06/2018 Discharge Diagnoses: 1.Acute chronic obstructive pulmonary disease exacerbation. 2.Chronic kidney disease stage 2B. 3.Diabetes mellitus type 2 with hyperglycemia without long-term use of insulin. 4.Urinary tract infection secondary to Staphylococcus aureus, likely contamination. 5.Essential hypertension, uncontrolled. 6.Benign prostatic hypertrophy, on finasteride. 7.Insomnia. Hospital Course: The patient is a 73-year-old male who comes in with shortness of breath and COPD ex acerbation. The patient does have home O2, uses around 2 to 3 L via nasal cannula. The patient was found to have significant worsening of his condition needing to use his oxygen more than usual up to 6 L. The patient was started on steroid treatments and breathing treatments. He was seen by Dr. Mica burnett with Pulmonology. The patient was a former smoker. The patient was added on Symbicort and Spi mukund. No signs of sepsis. Antibiotics were discontinued by Pulmonology. The patient was switched o michelle to p.o. steroids. The patient will need to follow up with Dr. Garcia and obtain PFTs at the [place] . The patient's chest x-ray showed some COPD changes. His YUNG inhibitors were adjusted upon dischar ge due to his elevated kidney function, which improved with IV fluid hydration. His blood cultures w ere negative. Influenza screen was also negative. Urine culture showed Staph aureus, which is likel y a skin contaminant. Renal ultrasound was also done, which showed unremarkable right kidney, status post left nephrectomy. The patient was then cleared for discharge and was sent home in a stable con dition. Activity: As tolerated. No strenuous activity. Medications: As per medication reconciliation list. Followup: Follow up with primary care physician in 2-3 days. Follow up with press service reader, Dr. Bethany marcus, in 2 weeks. Return to ER for worsening condition. Diet: Diabetic diet. Code Status: Full. Time Spent: Total time spent discharging the patient was 37 minutes. /JAROD Voice ID: [id number] Report ID: [id number]
== END 2018-08-06 11:25 | disposition home or self-care (01) | DRG 191 ==
LOC: ER 12:50 → ERHOLD 19:59 → 4TH 20:47
PROVIDERS: ADMIT Internal Medicine; ATTEND Internal Medicine
DX: J44.1 Chronic obstructive pulmonary disease with (acute) exacerbation (principal); N39.0 Urinary tract infection, site not specified; I12.9 Hypertensive chronic kidney disease with stage 1 through stage 4 chronic kidney disease, or unspecified chronic kidney disease; E11.22 Type 2 diabetes mellitus with diabetic chronic kidney disease; E11.65 Type 2 diabetes mellitus with hyperglycemia; N18.2 Chronic kidney disease, stage 2 (mild); N40.0 Benign prostatic hyperplasia without lower urinary tract symptoms; G47.00 Insomnia, unspecified; E78.5 Hyperlipidemia, unspecified; Z87.891 Personal history of nicotine dependence; Z90.5 Acquired absence of kidney; Z88.2 Allergy status to sulfonamides
CPT/HCPCS: 36415; 71045; 71046; 76770; 80048; 80053; 80076; 81003; 81015; 82962; 83036; 83735; 83880; 84484; 85025; 85610; 87040; 87077; 87086; 87088; 87186; 87804; 93005; 94640; 94760; 96365; 96367; 99285; J0360; J0456; J0696; J0744; J1650; J1940; J2930; J7030; J7512

== ENCOUNTER 2021-08-07 14:31 | Inpatient (IN) | payer OTHER ==
--- OUTSIDE RECORDS SUMMARY | 2021-08-07 14:34 | XMS REPORT | Continuity of Care Document ---
:1945 Author Organization [facility] t Address [address] [place] [address] Care Team Providers Name Role Phone Unavailable Unavailable Unavailable Problems This patient has no known problems. Allergies, Adverse Reactions, Alerts This patient has no known allergies or adverse reactions. Medications This patient has no known medications. Procedures This patient has no known procedures. Encounters Start End Encounter Admission Attending Care Care Encounter Source Date/Time Date/Time Type Type Clinicians Facility Department ID 2020-08-02 2020-08-02 Outpatient [facility] [id number] [facility] 00[facility]00:00 00:00:00 [facility] 2020-07-31 2020-07-31 Outpatient [facility] [id number] [facility] [address] 00:00:00 00:00:00 [facility] Results This patient has no known results.
--- NOTE | 2021-08-07 20:06 | RAD REPORT ---
EXAM DESCRIPTION: RAD - Chest Pa And Lat (2 Views) - 08/07/2021 6:26 pm CLINICAL HISTORY: DYSPNEA COMPARISON: July 2018 TECHNIQUE: Frontal and lateral views of the chest were obtained. FINDINGS: The lungs are fibrotic as a baseline. Interstitial opacification is present at each base s uperimposed on the chronic pattern. Upper lobe vasculature within normal limits. Heart size is norm al and central vasculature is within normal limits. No pleural effusion or pneumothorax seen. No ac gracy bony finding noted. No aortic abnormality. IMPRESSION: Bibasilar interstitial edema or infiltrate superimposed on a mild chronic interstitial p attern.
[2021-08-07 20:40] LABS: SARS-COV-2 RT PCR NEGATIVE (NEGATIVE)
[2021-08-07] MEDS ORDERED: IPRATROPIUM BROM 0.5MG/2.5ML ONE (23:05)
[2021-08-07] MEDS ORDERED: METHYLPREDNISOLONE 125 MG INJ ONE (23:05)
[2021-08-07] MEDS ORDERED: ALBUTEROL 2.5 MG/3 ML NEB SOL ONE (23:05)
[2021-08-07] MEDS ORDERED: MAGNESIUM SULFATE 1 gm IVPB 1 GM/100 ML BAG IV ONE (23:06)
[2021-08-07 23:41] LABS: Hematocrit 38.9 % (39.6-49.0); Lymphocytes % 20.2 % (15.3-44.8); MPV 7.5 fL (7.6-11.3); Protime INR 0.96; RBC Red Blood Cell Count 4.26 M/uL (4.33-5.43)
[2021-08-07 23:55] LABS: Albumin 3.1 g/dL (3.4-5.0); Bilirubin Direct 0.1 mg/dL (0-0.2); Bilirubin Total 0.4 mg/dL (0.2-1.0); Magnesium 2.1 mg/dL (1.8-2.4); Potassium 4.5 mmol/L (3.5-5.1); Protein, Total 8.8 g/dL (6.4-8.2); Troponin (Emerg Dept Use Only) 0.06 ng/mL (0.0-0.045)
--- NOTE | 2021-08-08 00:14 | EDPHYS ---
Physician Documentation [facility] Name: Frank López Age: 76 yrs Sex: Male : 1945 Arrival Date: 08/07/2021 Time: 14:39 Bed 6 Private MD: ED Physician Kenney Lo HPI: 08/07 23:01 This 76 yrs old Male presents to ER via Wheelchair with complaints of Breathing kb Difficulty, low o2. 23:01 The patient has shortness of breath at rest. Onset: The symptoms/episode began/occurred kb yesterday. Duration: The symptoms are continuous. The patient's shortness of breath is aggravated by exertion, is alleviated by nothing. Associated signs and symptoms: Pertinent positives: productive cough, Pertinent negatives: chest pain, fever. Severity of symptoms: At their worst the symptoms were moderate in the emergency department the symptoms are unchanged. The patient has not experienced similar symptoms in the past. The patient has not recently seen a physician. Historical: - Allergies: 15:49 Codeine; ll1 15:49 Sulfa (Sulfonamide Antibiotics); ll1 - PMHx: 15:49 COPD; Diabetes - NIDDM; High Cholesterol; Hypertension; nephrectomy; ll1 - Immunization history:: Client reports receiving the Tony \\T\\ Tony single-dose vaccine. - Social history:: Smoking status: Patient reports the use of cigarette tobacco products, smokes one-half pack cigarettes per day. ROS: 23:00 Constitutional: Negative for fever, chills, and weight loss. kb 23:00 Respiratory: Positive for dyspnea on exertion, shortness of breath, Negative for cough, hemoptysis, orthopnea, pleurisy, sputum production, wheezing. 23:00 All other systems are negative. Exam: 23:00 Constitutional: This is a well developed, well nourished patient who is awake, alert, kb and in no acute distress. Head/Face: Normocephalic, atraumatic. ENT: Moist Mucous membranes Cardiovascular: Regular rate and rhythm with a normal S1 and S2. No gallops, murmurs, or rubs. No pulse deficits. Abdomen/GI: Soft, non-tender. No distention Skin: Warm, dry with normal turgor. Normal color. MS/ Extremity: Pulses equal, no cyanosis. Neurovascular intact. Full, normal range of motion. Neuro: Awake and alert, GCS 15, oriented to person, place, time, and situation. Moves all extremities. Normal gait. Psych: Awake, alert, with orientation to person, place and time. Behavior, mood, and affect are within normal limits. 23:00 Respiratory: mild respiratory distress is noted, Respirations: labored breathing, that is mild, Breath sounds: wheezing: expiratory that is moderate, is heard diffusely. Vital Signs: 15:50 BP 133 / 83; Pulse 107; Resp 24; Temp 98.8; Pulse Ox 90% ; Weight 77.11 kg; Height 5 ll1 ft. 9 in. (175.26 cm); Pain 0/10; 15:55 Pulse Ox 94% on 3 lpm NC; ll1 22:40 Pulse Ox 84% on R/A; as6 22:49 BP 144 / 64; Pulse 95; Resp 20 S; Pulse Ox 94% on 3 lpm NC; as6 08/08 00:33 BP 126 / 58; Pulse 87; Resp 18 S; Pulse Ox 91% on 2 lpm NC; as6 02:01 BP 106 / 53; Pulse 86; Resp 18 S; Pulse Ox 94% on 2 lpm NC; as6 08/07 15:50 Body Mass Index 25.10 (77.11 kg, 175.26 cm) ll1 MDM: 08/07 22:37 Patient medically screened. 23:00 Data reviewed: vital signs, nurses notes. Data interpreted: Pulse oximetry: on room air kb is 84 %. Interpretation: hypoxia. Plan: will initiate a nebulizer treatment. Counseling: I had a detailed discussion with the patient and/or guardian regarding: the historical points, exam findings, and any diagnostic results supporting the discharge/admit diagnosis, lab results, radiology results, the need for further work-up and treatment in the hospital. 08/08 00:11 Physician consultation: Daniel VILLA was contacted at 00:11, regarding admission, to the telemetry unit. consult, patient's condition, and will see patient in ED. 08/07 17:37 Order name: COVID-19/FLU A+B (Document "Date of Onset" if Symptomatic) 08/07 17:38 Order name: COVID-19/FLU A+B; Complete Time: 21:51 EDMS 08/07 22:51 Order name: Basic Metabolic Panel kb 08/07 22:51 Order name: CBC with Diff kb 08/07 22:51 Order name: LFT's kb 08/07 22:51 Order name: Magnesium kb 08/07 22:51 Order name: NT PRO-BNP kb 08/07 22:51 Order name: PT-INR kb 08/07 22:51 Order name: Troponin (emerg Dept Use Only) kb 08/07 22:52 Order name: Basic Metabolic Panel; Complete Time: 00:09 EDMS 08/07 22:52 Order name: CBC with Automated Diff; Complete Time: 23:48 EDMS 08/07 22:52 Order name: Liver (Hepatic) Function; Complete Time: 00:09 EDMS 08/07 22:52 Order name: Magnesium; Complete Time: 00:09 EDMS 08/07 22:52 Order name: NT PRO-BNP; Complete Time: 00:09 EDMS 08/07 17:37 Order name: Chest Pa And Lat (2 Views) XRAY; Complete Time: 21:51 kb 08/07 22:51 Order name: EKG; Complete Time: 22:52 kb 08/07 22:51 Order name: Cardiac monitoring; Complete Time: 23:42 kb 08/07 22:51 Order name: EKG - Nurse/Tech; Complete Time: 23:42 kb 08/07 22:51 Order name: IV Saline Lock; Complete Time: 23:32 kb 08/07 22:51 Order name: Labs collected and sent; Complete Time: 23:32 kb 08/07 22:51 Order name: O2 Per Protocol; Complete Time: 23:32 kb 08/07 22:52 Order name: Protime (+INR); Complete Time: 23:48 EDMS 08/07 22:52 Order name: Troponin (Emerg Dept Use Only); Complete Time: 00:09 EDMS 08/07 22:52 Order name: Blood Culture Adult (2) kb 08/07 22:52 Order name: Procalcitonin; Complete Time: 00:23 kb 08/07 22:52 Order name: Lactate; Complete Time: 00:09 kb 08/08 00:31 Order name: CONS Physician Consult EDMS 08/07 22:51 Order name: O2 Sat Monitoring; Complete Time: 23:32 kb Administered Medications: 08/07 23:32 Drug: Magnesium Sulfate 1 grams Route: IVPB; Infused Over: 1 hrs; Site: right forearm; as6 08/08 00:33 Follow up: Response: No adverse reaction; IV Status: Completed infusion; IV Intake: as6 100ml 08/07 23:32 Drug: DuoNeb (albuterol 2.5 mg, ipratropium 0.5 mg) (3:1) (2.5 mg - 0.5 mg) 3 ml Route: as6 Nebulizer; 08/08 00:34 Follow up: Response: No adverse reaction as6 08/07 23:32 Drug: SOLU-Medrol (methylPrednisoLONE) 125 mg Route: IVP; Site: right forearm; as6 08/08 00:34 Follow up: Response: No adverse reaction as6 Disposition: 04:06 Co-signature as Attending Physician, Kenney Lo MD. 7 Disposition Summary: 08/08/21 00:13 Hospitalization Ordered Hospitalization Status: Inpatient Admission kb Provider: Chago Navarrete Location: Telemetry/MedSurg (Inpatient) kb Condition: Stable kb Problem: new kb Symptoms: are unchanged kb Bed/Room Type: Standard kb Room Assignment: 209(08/08/21 00:56) cg Diagnosis - Acute on Chronic Renal failure kb - Acute pulmonary edema kb - COPD/ Chronic obstructive pulmonary disease with (acute) exacerbation kb Forms: - Medication Reconciliation Form kb - SBAR form kb Signatures: Dispatcher [employer] Karen Burger FNP-C FNP-Anastasia Tejada RN RN Laura Dillard RN RN 1 Kenney Lo MD MD [facility] Sigifredo Yap RN RN as6 Corrections: (The following items were deleted from the chart) 00:56 00:13 kb cg
--- NOTE | 2021-08-08 00:14 | ER ---
Nurse's Notes [facility] Name: Frank López Age: 76 yrs Sex: Male : 1945 Arrival Date: 08/07/2021 Time: 14:39 Bed 6 Private MD: Diagnosis: Acute on Chronic Renal failure;Acute pulmonary edema;COPD/ Chronic obstructive pulmonary disease with (acute) exacerbation Presentation: 08/07 15:50 Chief complaint: Patient states: SOB since last night. Low grade fever at home. Wearing ll1 daughters oxygen at home. Coronavirus screen: Vaccine status: Patient reports being unvaccinated. Client denies travel out of the [place] in the last 14 days. cough unrelated to allergies, difficulty breathing, fatigue, fever, shortness of breath, Client presents with at least one sign or symptom that may indicate coronavirus-19. Standard/surgical mask placed on the client. Ebola Screen: Patient denies travel to an Ebola-affected area in the 21 days before illness onset. Initial Sepsis Screen: Does the patient meet any 2 criteria? HR > 90 bpm. No. Patient's initial sepsis screen is negative. Does the patient have a suspected source of infection? Yes: Productive cough/pneumonia. Risk Assessment: Do you want to hurt yourself or someone else? Patient reports no desire to harm self or others. Onset of symptoms was August 06, 2021. 15:50 Method Of Arrival: Wheelchair ll1 15:50 Acuity: GAVI 3 ll1 Historical: - Allergies: 15:49 Codeine; ll1 15:49 Sulfa (Sulfonamide Antibiotics); ll1 - PMHx: 15:49 COPD; Diabetes - NIDDM; High Cholesterol; Hypertension; nephrectomy; ll1 - Immunization history:: Client reports receiving the Tony \T\ Tony single-dose vaccine. - Social history:: Smoking status: Patient reports the use of cigarette tobacco products, smokes one-half pack cigarettes per day. Screenin:52 Abuse screen: Denies threats or abuse. Denies injuries from another. Nutritional as6 screening: No deficits noted. Tuberculosis screening: No symptoms or risk factors identified. Fall Risk None identified. Assessment: 22:50 General: Appears uncomfortable, Behavior is calm, cooperative. Pain: Denies pain. as6 Neuro: Level of Consciousness is awake, alert, obeys commands, Oriented to person, place, time, situation. Cardiovascular: Capillary refill < 3 seconds Patient's skin is warm and dry. Respiratory: Reports shortness of breath cough that is Airway is patent Trachea midline Respiratory effort is even, unlabored, Respiratory pattern is regular, symmetrical, Breath sounds with wheezes bilaterally. Derm: Skin is intact. Vital Signs: 15:50 BP 133 / 83; Pulse 107; Resp 24; Temp 98.8; Pulse Ox 90% ; Weight 77.11 kg; Height 5 ll1 ft. 9 in. (175.26 cm); Pain 0/10; 15:55 Pulse Ox 94% on 3 lpm NC; ll1 22:40 Pulse Ox 84% on R/A; as6 22:49 BP 144 / 64; Pulse 95; Resp 20 S; Pulse Ox 94% on 3 lpm NC; as6 08/08 00:33 BP 126 / 58; Pulse 87; Resp 18 S; Pulse Ox 91% on 2 lpm NC; as6 02:01 BP 106 / 53; Pulse 86; Resp 18 S; Pulse Ox 94% on 2 lpm NC; as6 08/07 15:50 Body Mass Index 25.10 (77.11 kg, 175.26 cm) ll1 ED Course: 08/07 14:39 Patient arrived in ED. am2 15:49 Arm band placed on. ll1 15:52 Triage completed. ll1 18:26 Chest Pa And Lat (2 Views) XRAY In Process Unspecified. EDMS 22:03 [facility] kb 22:03 Kenney Lo MD is Attending Physician. kb 22:34 Sigifredo Yap, CESAR is Primary Nurse. as6 22:53 Placed in gown. Bed in low position. Call light in reach. Side rails up X2. Pulse ox as6 on. NIBP on. Warm blanket given. 08/08 00:13 Chago Navarrete MD is Hospitalizing Provider. kb 02:01 Inserted saline lock: 20 gauge in right forearm, using aseptic technique. as6 02:26 No provider procedures requiring assistance completed. Patient admitted, IV remains in as6 place. Administered Medications: 08/07 23:32 Drug: Magnesium Sulfate 1 grams Route: IVPB; Infused Over: 1 hrs; Site: right forearm; as6 08/08 00:33 Follow up: Response: No adverse reaction; IV Status: Completed infusion; IV Intake: as6 100ml 08/07 23:32 Drug: DuoNeb (albuterol 2.5 mg, ipratropium 0.5 mg) (3:1) (2.5 mg - 0.5 mg) 3 ml Route: as6 Nebulizer; 08/08 00:34 Follow up: Response: No adverse reaction as6 08/07 23:32 Drug: SOLU-Medrol (methylPrednisoLONE) 125 mg Route: IVP; Site: right forearm; as6 08/08 00:34 Follow up: Response: No adverse reaction as6 Intake: 00:33 IV: 100ml; Total: 100ml. as6 Outcome: 00:13 Decision to Hospitalize by Provider. kb 02:26 Admitted to Med/surg accompanied by tech, via wheelchair, room 209, with oxygen, with as6 chart, Report called to RN 02:26 Condition: stable 02:27 Patient left the ED. as6 Signatures: Dispatcher [employer] EDKaren Nicole, MADHAV BOOTH-Siena Pennington Lynsay, RN RN ll1 Sigifredo Yap, RN RN as6
--- NOTE | 2021-08-08 01:13 | P.HP ---
Certification for Inpatient Patient admitted to: Inpatient With expected LOS: >2 Midnights Patient will require the following post-hospital care: None Practitioner: I am a practitioner with admitting privileges, knowledge of patient current condition, hospital course, and medical plan of care. Services: Services provided to patient in accordance with Admission requirements found in Title 42 Section 412.3 of the Code of Federal Regulations <Daniel Jimenez Stefania - Last Filed: 08/08/21 01:15> Patient History Date of Service: 08/08/21 Reason for admission: COPD, pulmonary edema, acute on CKD History of Present Illness: Mr. López is a 76 yo M with DM, HTN, CKD4, CAD, COPD who presents with one day of SOB, PARKINSON. O2 sats on room air 84%. He reports cough, chills. Denies nausea, vomiting, diarrhea. He reports mild relief of symptoms with inhalers at home. Improvement of symptoms with breathing treatments and steroids in the ER. He has no known history of CHF. Denies chest pain. Resting comfortably in bed, on nasal cannula but continues to have audible wheezing. BUN 37 Cr 4.01 GFR 15 Glu 157 troponin 0.06 BNP 8040 procal 0.26 CXR IMPRESSION: Bibasilar interstitial edema or infiltrate superimposed on a mild chronic interstitial pattern. - Past Medical/Surgical History Diabetic: Yes -: COPD -: diabetes mellitus II -: CKD -: dyslipidemia -: CAD s/p PCI -: monoclonal gammopathy -: PVD -: AAA -: history of bladder cancer -: synovial chondromatosis -: neuropathy -: HTN -: L. Nephrectomy r/t CA - 1994 -: Status post stent -: Peripheral vascular disease - Family History Family History: Reviewed- Non-Contributory - Social History Smoking Status: Former smoker Alcohol use: No CD- Drugs: No Caffeine use: Yes Place of Residence: Home <Daniel Jimenez - Last Filed: 08/08/21 01:15> Date of Service: 08/08/21 <Chago Navarrete - Last Filed: 08/08/21 16:26> Allergies codeine Allergy (Verified 08/08/21 02:36) Shortness of breath Sulfa (Sulfonamide Antibiotics) Allergy (Verified 08/08/21 02:36) Shortness of breath Home Medications: Atorvastatin Calcium 40 mg PO BEDTIME 08/02/18 Finasteride [Proscar*] 5 mg PO DAILY 08/02/18 Gabapentin 300 mg PO BEDTIME 08/02/18 Paroxetine HCl [Paxil] 20 mg PO DAILY 08/02/18 allopurinoL [Zyloprim*] 100 mg PO DAILY 08/03/18 Budesonide/Formoterol Fumarate [Symbicort 160-4.5 Mcg Inhaler] 2 puff IH BID #60 hfa.aer.ad 08/06/18 Cholecalciferol (Vitamin D3) [Vitamin D3] 25 mcg PO DAILY 08/08/21 Cyanocobalamin [Vitamin B-12*] 2,000 mcg PO DAILY 08/08/21 Ipratropium/Albuterol Sulfate [Combivent Respimat 20-100 Mcg] 1 puff IH Q6H PRN 08/08/21 Nifedipine [Procardia Xl] 60 mg PO DAILY 08/08/21 Review of Systems 10-point ROS is otherwise unremarkable General: Chills Eyes: Unremarkable ENT: Unremarkable Respiratory: Cough, Shortness of Breath, SOB with Excertion Cardiovascular: Unremarkable Gastrointestinal: Unremarkable Genitourinary: Unremarkable Musculoskeletal: Unremarkable Integumentary: Unremarkable Neurological: Unremarkable Lymphatics: Unremarkable <Daniel Jimenez - Last Filed: 08/08/21 01:15> Physical Examination - Physical Exam General: Alert, In no apparent distress HEENT: Atraumatic, PERRLA, Mucous membr. moist/pink, EOMI, Sclerae nonicteric Neck: Supple, 2+ carotid pulse no bruit, No LAD, Without JVD or thyroid abnormality Respiratory: Diminished, Expiratory wheezes Cardiovascular: Regular rate/rhythm, Normal S1 S2 Gastrointestinal: Normal bowel sounds, No tenderness Musculoskeletal: No tenderness Integumentary: No rashes Neurological: Normal speech, Normal strength at 5/5 x4 extr, Normal tone, Normal affect Lymphatics: No axilla or inguinal lymphadenopathy - Studies Laboratory Data (last 24 hrs) 08/07/21 23:22: PT 11.0, INR 0.96 08/07/21 23:22: WBC 4.80, Hgb 12.4 L, Hct 38.9 L, Plt Count 209 08/07/21 23:22: Sodium 137, Potassium 4.5, BUN 37 H, Creatinine 4.01 H, Glucose 157 H, Magnesium 2.1, Total Bilirubin 0.4, AST 11 L, ALT 16, Alkaline Phosphatase 145 H <Daniel Jimenez - Last Filed: 08/08/21 01:15> - Studies Laboratory Data (last 24 hrs) 08/07/21 23:22: PT 11.0, INR 0.96 08/07/21 23:22: WBC 4.80, Hgb 12.4 L, Hct 38.9 L, Plt Count 209 08/07/21 23:22: Sodium 137, Potassium 4.5, BUN 37 H, Creatinine 4.01 H, Glucose 157 H, Magnesium 2.1, Total Bilirubin 0.4, AST 11 L, ALT 16, Alkaline Phosphatase 145 H <Chago Navarrete - Last Filed: 08/08/21 16:26> Assessment and Plan - Problems (Diagnosis) (1) Pulmonary edema Current Visit: Yes Status: Acute Qualifiers: Chronicity: acute Qualified Code(s): J81.0 - Acute pulmonary edema (2) Acute kidney injury superimposed on chronic kidney disease Current Visit: Yes Status: Acute (3) HTN (hypertension) Current Visit: Yes Status: Chronic Qualifiers: Hypertension type: primary hypertension Qualified Code(s): I10 - Essential (primary) hypertension (4) CAD (coronary artery disease) Current Visit: Yes Status: Chronic Qualifiers: Coronary Disease-Associated Artery/Lesion type: unspecified vessel or lesion type [place] vs. transplanted heart: [place] heart Associated angina: without angina Qualified Code(s): I25.10 - Atherosclerotic heart disease of [place] coronary artery without angina pectoris (5) COPD exacerbation Current Visit: No Status: Acute (6) Diabetes mellitus Current Visit: No Status: Chronic Qualifiers: Diabetes mellitus type: type 2 Diabetes mellitus long term care administrator insulin use: without senior care use Diabetes mellitus complication status: with unspecified complications (7) Dyslipidemia Current Visit: No Status: Chronic - Plan continue O2, breathing treatments, IV steroids trend troponins, repeat EKG ECHO pending, daily weights nephrology consulted, kidney ultrasound pending A1c pending, sliding scale insulin and accuchecks anemia workup pending DVT ppx Discharge Plan: Home Plan to discharge in: 72 Hours - Advance Directives Does patient have a Living Will: No Does patient have a Durable POA for Healthcare: No - Code Status/Comfort Care Code Status Assessed: Yes (full code ) Critical Care: No Time Spent Managing Pts Care (In Minutes): 70 <Daneil Jimenez Stefania - Last Filed: 08/08/21 01:15> - Problems (Diagnosis) (1) COPD exacerbation Current Visit: No Status: Acute (2) Pulmonary edema Current Visit: Yes Status: Acute Qualifiers: Chronicity: acute Qualified Code(s): J81.0 - Acute pulmonary edema (3) Acute kidney injury superimposed on chronic kidney disease Current Visit: Yes Status: Acute (4) CAD (coronary artery disease) Current Visit: Yes Status: Chronic Qualifiers: Coronary Disease-Associated Artery/Lesion type: unspecified vessel or lesion type [place] vs. transplanted heart: [place] heart Associated angina: without angina Qualified Code(s): I25.10 - Atherosclerotic heart disease of [place] coronary artery without angina pectoris (5) HTN (hypertension) Current Visit: Yes Status: Chronic Qualifiers: Hypertension type: primary hypertension Qualified Code(s): I10 - Essential (primary) hypertension (6) Diabetes mellitus Current Visit: No Status: Chronic Qualifiers: Diabetes mellitus type: type 2 Diabetes mellitus senior care insulin use: without long term care administrator use Diabetes mellitus complication status: with unspecified complications <Chago Navarrete - Last Filed: 08/08/21 16:26> Date of Service: 08/08/21 Subjective Agree with HPI as mentioned above Review of Systems 10-point ROS is otherwise unremarkable Physical Examination - Vital Signs Reviewed - Physical Exam General: Alert, In no apparent distress, Oriented x3 Respiratory: Diminished, Expiratory wheezes Cardiovascular: Regular rate/rhythm, Normal S1 S2, No murmurs Gastrointestinal: Normal bowel sounds, Soft and benign, Non-distended, No tenderness Musculoskeletal: No clubbing, No swelling, No tenderness Neurological: Sensation intact, Cranial nerves 3-12 intact Assessment & Plan - Problems (Diagnosis) (1) COPD exacerbation Current Visit: No Status: Acute (2) Pulmonary edema Current Visit: Yes Status: Acute Qualifiers: Chronicity: acute Qualified Code(s): J81.0 - Acute pulmonary edema (3) Acute kidney injury superimposed on chronic kidney disease Current Visit: Yes Status: Acute (4) CAD (coronary artery disease) Current Visit: Yes Status: Chronic Qualifiers: Coronary Disease-Associated Artery/Lesion type: unspecified vessel or lesion type [place] vs. transplanted heart: [place] heart Associated angina: without angina Qualified Code(s): I25.10 - Atherosclerotic heart disease of [place] coronary artery without angina pectoris (5) HTN (hypertension) Current Visit: Yes Status: Chronic Qualifiers: Hypertension type: primary hypertension Qualified Code(s): I10 - Essential (primary) hypertension (6) Diabetes mellitus Current Visit: No Status: Chronic Qualifiers: Diabetes mellitus type: type 2 Diabetes mellitus senior care insulin use: without long term care administrator use Diabetes mellitus complication status: with unspecified complications - Plan Continue with plan of care as mentioned below: 1. Continue with albuterol and Atrovent nebs 2. Continue with IV steroids 3. Gentle diuretics 4. Pulmonary consultation if symptoms do not improve 5. Room air O2 sats 6. Repeat chest x-ray in the morning 7. Strict blood pressure control 8. GI and DVT prophylaxis Discharge Plan: Home Plan to discharge in: Greater than 2 days - Advance Directives Does patient have a Living Will: No Does patient have a Durable POA for Healthcare: No - Code Status/Comfort Care Code Status Assessed: Yes Code Status: Full Code Critical Care: No Time Spent Managing PTS Care (In Minutes): 35 <Chago Navarrete - Last Filed: 08/08/21 16:26>
[2021-08-08] MEDS ORDERED: ONDANSETRON 4 MG/2 ML VIAL IV PRN (02:12)
[2021-08-08] MEDS ORDERED: ACETAMINOPHEN 500 MG TAB PO PRN (02:12)
[2021-08-08 02:35] VITALS: BMI 27.1
[2021-08-08 03:17] LABS: Ferritin 115.4 ng/mL (26-388)
[2021-08-08] MEDS: HEPARIN 5000 UNIT/ML 1 ML VIAL SQ SCH ×3 (03:45→17:10)
[2021-08-08 06:20] LABS: Urine Appearance TURBID (Clear); Urine Bilirubin NEGATIVE (Negative); Urine Blood NEGATIVE (Negative); Urine Color YELLOW (Yellow); Urine Glucose TRACE (Negative); Urine Protein 2+ (Negative); Urine Urobilinogen 0.2 mg/dL (0.2-1.0)
[2021-08-08 06:24] LABS: Urine Microscopic Reflex ORDER UMIC
[2021-08-08 06:58] LABS: Urine Bacteria <20 /HPF (NONE SEEN); Urine Coarse Granular Casts 0-5 /LPF (NONE SEEN); Urine RBC <5 /HPF (NONE SEEN)
[2021-08-08 07:03] LABS: UR PROTEIN 259.8 mg/dL (<11.9); Urine Protein/Creatinine Ratio 2.13 ratio (<0.15)
--- NOTE | 2021-08-08 07:20 | RAD REPORT ---
EXAM DESCRIPTION: US - Renal Ultrasound-Complete - 08/08/2021 3:36 am CLINICAL HISTORY: JAZZY COMPARISON: Renal Ultrasound-Complete dated 11/04/2018; CT-STONE PROTOCOL dated 06/30/2010 FINDINGS: The right kidney measures 9.7 x 4.5 x 5.1 cm. The left kidney is absent. Renal cortical t hickness and echogenicity are normal. No hydronephrosis or suspicious renal mass. The small 15 millim eter cyst present in the upper pole right kidney with no suspicious characteristics. No bladder wall thickening or mass. No intraluminal stone or mass. IMPRESSION: No hydronephrosis or suspicious renal mass. No bladder abnormality identified.
[2021-08-08] MEDS ORDERED: INFLUENZA VACCINE (for 6+ mo) 0.5 ML DOSE IMVAC ONE (08:00)
[2021-08-08] MEDS: INSULIN -REGULAR HUMAN 50 UNIT/0.5 ML ML SQ SCH ×4 (08:53→21:00)
[2021-08-08] MEDS: METHYLPREDNISOLONE 40 MG INJ IV SCH ×2 (08:54→17:10)
--- NOTE | 2021-08-08 09:34 | P.CNS ---
Date of Consult: 08/08/21 Reason for Consult: JAZZY/ CKD Requesting Physician: Chago Navarrete Chief Complaint: COPD, pulmonary edema, acute on CKD History of Present Illness: 76 yo WM CKD, DM, HTN, BPH presented to the ER with 1 day of moderate, progressive dyspnea worse with exertion and with associated hypoxia. He denies NSAIDs. He reports a slow urine stream with nocturia. He follows with a math teacher at the [facility] but has not seen the [facility] math teacher for at least 6 months. Reports a history of bladder cancer. Mr. López is a 76 yo M with DM, HTN, CKD4, CAD, COPD who presents with one day of SOB, PARKINSON. O2 sats on room air 84%. He reports cough, chills. Denies nausea, vomiting, diarrhea. He reports mild relief of symptoms with inhalers at home. Improvement of symptoms with breathing treatments and steroids in the ER. He has no known history of CHF. Denies chest pain. Resting comfortably in bed, on nasal cannula but continues to have audible wheezing. BUN 37 Cr 4.01 GFR 15 Glu 157 troponin 0.06 BNP 8040 procal 0.26 23:01 This 76 yrs old Male presents to ER via Wheelchair with complaints of Breathing kb Difficulty, low o2. 23:01 The patient has shortness of breath at rest. Onset: The symptoms/episode began/occurred kb yesterday. Duration: The symptoms are continuous. The patient's shortness of breath is aggravated by exertion, is alleviated by nothing. Associated signs and symptoms: Pertinent positives: productive cough, Pertinent negatives: chest pain, fever. Severity of symptoms: At their worst the symptoms were moderate in the emergency department the symptoms are unchanged. The patient has not experienced similar symptoms in the past. The patient has not recently seen a physician. Allergies codeine Allergy (Verified 08/08/21 02:36) Shortness of breath Sulfa (Sulfonamide Antibiotics) Allergy (Verified 08/08/21 02:36) Shortness of breath Home medications list reviewed: Yes Home Medications: Atorvastatin Calcium 20 mg PO BEDTIME 08/02/18 Finasteride [Proscar*] 5 mg PO DAILY 08/02/18 Gabapentin 100 mg PO BEDTIME 08/02/18 Paroxetine HCl [Paxil] 40 mg PO DAILY 08/02/18 Aspirin [Aspir-Low] 81 mg PO DAILY 08/03/18 Buspirone HCl [Buspar] 10 mg PO BID PRN 08/03/18 Saxagliptin HCl [Onglyza] 2.5 mg PO DAILY 08/03/18 allopurinoL [Zyloprim*] 100 mg PO DAILY 08/03/18 glipiZIDE [Glucotrol] 10 mg PO DAILY 08/03/18 Amlodipine [Norvasc*] 10 mg PO DAILY #30 tab 08/06/18 Budesonide/Formoterol Fumarate [Symbicort 160-4.5 Mcg Inhaler] 2 puff IH BID #60 hfa.aer.ad 08/06/18 Tiotropium [place] [Spiriva] 18 mcg IH DAILY #30 cap.w.dev 08/06/18 lisinopriL [Lisinopril] 20 mg PO DAILY #30 tablet 08/06/18 predniSONE [Deltasone] 10 mg PO BID #10 tablet 08/06/18 - Past Medical/Surgical History Diabetic: Yes -: COPD -: diabetes mellitus II -: CKD -: dyslipidemia -: CAD s/p PCI -: monoclonal gammopathy -: PVD -: AAA -: history of bladder cancer -: synovial chondromatosis -: neuropathy -: HTN -: L. Nephrectomy r/t - 1994 -: Status post stent -: Peripheral vascular disease - Social History Smoking Status: Current every day smoker Alcohol use: No CD- Drugs: No Caffeine use: Yes Place of Residence: Home Review of Systems 10-point ROS is otherwise unremarkable General: Weakness, Malaise Respiratory: SOB with Excertion Genitourinary: Frequency Physical Examination Temp Pulse Resp BP Pulse Ox 98.2 F 92 H 17 146/75 H 94 08/08/21 03:55 08/08/21 03:55 08/08/21 03:55 08/08/21 03:55 08/08/21 03:55 General: In no apparent distress, Oriented x3, Cooperative HEENT: Atraumatic Neck: Supple Respiratory: Expiratory wheezes Cardiovascular: No edema, Regular rate/rhythm Gastrointestinal: Soft and benign, Non-distended Musculoskeletal: No clubbing, No contractures Integumentary: No rashes, No cyanosis Neurological: Normal speech Laboratory Data (last 24 hrs) 08/07/21 23:22: PT 11.0, INR 0.96 08/07/21 23:22: WBC 4.80, Hgb 12.4 L, Hct 38.9 L, Plt Count 209 08/07/21 23:22: Sodium 137, Potassium 4.5, BUN 37 H, Creatinine 4.01 H, Glucose 157 H, Magnesium 2.1, Total Bilirubin 0.4, AST 11 L, ALT 16, Alkaline Phosphatase 145 H Imagings Data: EXAM DESCRIPTION: US - Renal Ultrasound-Complete - 08/08/2021 3:36 am CLINICAL HISTORY: JAZZY COMPARISON: Renal Ultrasound-Complete dated 11/04/2018; CT-STONE PROTOCOL dated 06/30/2010 FINDINGS: The right kidney measures 9.7 x 4.5 x 5.1 cm. The left kidney is absent. Renal cortical thickness and echogenicity are normal. No hydronephrosis or suspicious renal mass. The small 15 millimeter cyst present in the upper pole right kidney with no suspicious characteristics. No bladder wall thickening or mass. No intraluminal stone or mass. IMPRESSION: No hydronephrosis or suspicious renal mass. No bladder abnormality identified. EXAM DESCRIPTION: RAD - Chest Pa And Lat (2 Views) - 08/07/2021 6:26 pm CLINICAL HISTORY: DYSPNEA COMPARISON: July 2018 TECHNIQUE: Frontal and lateral views of the chest were obtained. FINDINGS: The lungs are fibrotic as a baseline. Interstitial opacification is present at each base superimposed on the chronic pattern. Upper lobe vasculature within normal limits. Heart size is normal and central vasculature is within normal limits. No pleural effusion or pneumothorax seen. No acute bony finding noted. No aortic abnormality. IMPRESSION: Bibasilar interstitial edema or infiltrate superimposed on a mild chronic interstitial pattern. Conclusions/Impression: JAZZY vs Progressive disease. Risk factors for CKD: DM, HTN, MVD, BPH, MGUS, Nephrectomy CKD IV/V with proteinuria Left nephrectomy 1994 -No NSAIDs HTN with CKD -Start Amlodipine 5mg with holding parameters Elevated BNP -Echocardiogram pending DM II with CKD & Polyneuropathy -RISS Anemia in chronic illness Iron Deficiency 6% -Consider IV iron BPH with LUTS -Start Flomax BID AM labs ordered. Thank you kindly for the consultation.
[2021-08-08] MEDS: ALBUTEROL 2.5 MG/3 ML NEB SOL NEB PRN ×2 (15:12→20:41)
[2021-08-08] MEDS: IPRATROPIUM BROM 0.5MG/2.5ML NEB PRN ×2 (15:12→20:41)
--- NOTE | 2021-08-08 16:26 | P.PN ---
Subjective Date of Service: 08/08/21 Patient is doing well. Respiratory status has improved. Continue with IV steroids along with neb treatments. Continue monitoring and repeat chest x-ray in the morning. Review of Systems 10-point ROS is otherwise unremarkable Physical Examination - Vital Signs Temperature: 97.4 F Blood Pressure: 135/77 Pulse: 65 Respirations: 21 Pulse Ox (%): 97 - Physical Exam General: Alert, In no apparent distress, Oriented x3 Respiratory: Diminished, Expiratory wheezes Cardiovascular: Regular rate/rhythm, Normal S1 S2, No murmurs Gastrointestinal: Normal bowel sounds, Soft and benign, Non-distended, No ten derness Musculoskeletal: No clubbing, No swelling, No tenderness Neurological: Sensation intact, Cranial nerves 3-12 intact - Studies Laboratory Data (last 24 hrs) 08/07/21 23:22: PT 11.0, INR 0.96 08/07/21 23:22: WBC 4.80, Hgb 12.4 L, Hct 38.9 L, Plt Count 209 08/07/21 23:22: Sodium 137, Potassium 4.5, BUN 37 H, Creatinine 4.01 H, Glucose 157 H, Magnesium 2.1, Total Bilirubin 0.4, AST 11 L, ALT 16, Alkaline Phosphatase 145 H Medications List Reviewed: Yes Assessment & Plan - Problems (Diagnosis) (1) COPD exacerbation Current Visit: No Status: Acute (2) Pulmonary edema Current Visit: Yes Status: Acute Qualifiers: Chronicity: acute Qualified Code(s): J81.0 - Acute pulmonary edema (3) Acute kidney injury superimposed on chronic kidney disease Current Visit: Yes Status: Acute (4) CAD (coronary artery disease) Current Visit: Yes Status: Chronic Qualifiers: Coronary Disease-Associated Artery/Lesion type: unspecified vessel or lesion type [place] vs. transplanted heart: [place] heart Associated angina: without angina Qualified Code(s): I25.10 - Atherosclerotic heart disease of [place] coronary artery without angina pectoris (5) HTN (hypertension) Current Visit: Yes Status: Chronic Qualifiers: Hypertension type: primary hypertension Qualified Code(s): I10 - Essential (primary) hypertension (6) Diabetes mellitus Current Visit: No Status: Chronic Qualifiers: Diabetes mellitus type: type 2 Diabetes mellitus halfway insulin use: without halfway use Diabetes mellitus complication status: with unspecified complications - Plan Plan: 1. Continue with albuterol and Atrovent nebs 2. Continue with IV steroids 3. Gentle diuretics 4. Pulmonary consultation if symptoms do not improve 5. Room air O2 sats 6. Repeat chest x-ray in the morning 7. Strict blood pressure control 8. GI and DVT prophylaxis Discharge Plan: Home Plan to discharge in: Greater than 2 days - Advance Directives Does patient have a Living Will: No Does patient have a Durable POA for Healthcare: No - Code Status/Comfort Care Code Status Assessed: Yes Code Status: Full Code Critical Care: No Time Spent Managing PTS Care (In Minutes): 35
[2021-08-08] MEDS ORDERED: ALBUTEROL 2.5 MG/3 ML NEB SOL ONE (20:19)
[2021-08-08] MEDS ORDERED: IPRATROPIUM BROM 0.5MG/2.5ML ONE (20:19)
[2021-08-08] MEDS ORDERED: CEFTRIAXONE 1000 MG/VIAL ONE (20:30)
[2021-08-08] MEDS ORDERED: NA CHLORIDE 0.9% 50 ML ONE (20:32)
[2021-08-08] MEDS: TAMSULOSIN 0.4 MG SR CAP PO SCH (21:00)
[2021-08-08] MEDS: CEFTRIAXONE 1,000 MG in NA CHLORIDE 0.9% 50 ML IVPB SCH (21:01)
[2021-08-09] MEDS: HEPARIN 5000 UNIT/ML 1 ML VIAL SQ SCH ×3 (00:19→17:33)
[2021-08-09] MEDS: METHYLPREDNISOLONE 40 MG INJ IV SCH ×3 (00:25→17:32)
[2021-08-09 03:58] LABS: Absolute Lymphocytes (CBC) 0.4 K/uL (0.7-4.9); Hematocrit 32.7 % (39.6-49.0); Lymphocytes % 5.1 % (15.3-44.8); MPV 7.4 fL (7.6-11.3); RBC Red Blood Cell Count 3.61 M/uL (4.33-5.43)
[2021-08-09 04:05] LABS: RBC Red Blood Cell Count 3.57 M/uL (4.33-5.43)
[2021-08-09 04:34] LABS: Albumin 2.6 g/dL (3.4-5.0); Bilirubin Total 0.3 mg/dL (0.2-1.0); Magnesium 2.3 mg/dL (1.8-2.4); Protein, Total 7.4 g/dL (6.4-8.2); Thyroid Stimulating Hormone 0.937 uIU/mL (0.360-3.740); Uric Acid 5.4 mg/dL (3.5-7.2)
[2021-08-09 05:13] LABS: Folic Acid, (Folate) 5.8 ng/mL (3.1-17.5)
[2021-08-09 06:46] LABS: Urine Appearance CLEAR (Clear); Urine Bilirubin NEGATIVE (Negative); Urine Blood 1+ (Negative); Urine Color YELLOW (Yellow); Urine Glucose 2+ (Negative); Urine Protein 2+ (Negative); Urine Specific Gravity 1.015 (1.005-1.030); Urine Urobilinogen 0.2 mg/dL (0.2-1.0)
[2021-08-09 07:13] LABS: Urine Bacteria <20 /HPF (NONE SEEN); Urine Mucus LIGHT /HPF (NONE SEEN); Urine RBC <5 /HPF (NONE SEEN)
[2021-08-09] MEDS: ALBUTEROL 2.5 MG/3 ML NEB SOL NEB PRN ×2 (07:46→13:52)
[2021-08-09] MEDS: IPRATROPIUM BROM 0.5MG/2.5ML NEB PRN ×2 (07:46→13:52)
[2021-08-09] MEDS: TAMSULOSIN 0.4 MG SR CAP PO SCH ×2 (08:49→21:12)
[2021-08-09] MEDS: INSULIN -REGULAR HUMAN 50 UNIT/0.5 ML ML SQ SCH ×4 (08:50→21:14)
[2021-08-09] MEDS: CEFTRIAXONE 1,000 MG in NA CHLORIDE 0.9% 50 ML IVPB SCH ×2 (08:50→21:13)
[2021-08-09] MEDS ORDERED: AMLODIPINE 5 MG TAB PO SCH (09:00)
[2021-08-09] MEDS ORDERED: HOME MED 1 EA UNK (Ipratropium/Albuterol Sulfate [Combivent Respimat 20-100 Mcg] 4 GM Mist IH PRN (09:51)
[2021-08-09] MEDS: GUAIFENESIN 600 MG SA TAB PO SCH ×2 (12:41→21:13)
[2021-08-09] MEDS ORDERED: FUROSEMIDE 20 MG/ 2ML VIAL IV ONE (13:55)
[2021-08-09] MEDS ORDERED: ALBUMIN HUMAN 25% 50 ML IV ONE (14:05)
[2021-08-09] MEDS: FUROSEMIDE 40 MG/4 ML VIAL IV SCH (17:32)
[2021-08-09] MEDS ORDERED: CEFTRIAXONE 1000 MG/VIAL ONE (20:17)
--- NOTE | 2021-08-09 20:19 | P.PN ---
Date of Service: 08/09/21 Vital Signs Temp Pulse Resp BP Pulse Ox 98.2 F 88 20 141/74 H 92 08/09/21 16:00 08/09/21 16:00 08/09/21 16:00 08/09/21 16:00 08/09/21 16:00 Medications Acetaminophen (Acetaminophen 500 Mg Tab) 500 mg PO Q4HP PRN PRN Reason: Pain scale 2-4 (Mild) Albuterol Sulfate (Albuterol 2.5 Mg/3 Ml Neb Nanda) 2.5 mg NEB Q6HP PRN PRN Reason: SHORTNESS OF BREATH Last Admin: 08/09/21 13:52 Dose: 2.5 mg Documented by: Allopurinol (Allopurinol 100 Mg Tab) 100 mg PO DAILY [facility] Amlodipine Besylate (Amlodipine 5 Mg Tab) 5 mg PO DAILY [facility] Last Admin: 08/09/21 08:49 Dose: 5 mg Documented by: Atorvastatin Calcium (Atorvastatin 40 Mg Tab) 40 mg PO BEDTIME [facility] Cholecalciferol (Vitamin D 1000 Unit Tab) 1,000 unit PO DAILY [facility] Cyanocobalamin (Cyanocobalamin 1,000 Mcg Tab) 2,000 mcg PO DAILY [facility] Finasteride (Finasteride 5 Mg Tab) 5 mg PO DAILY [facility] Furosemide (Furosemide 40 Mg/4 Ml Vial) 20 mg IV Q8HR [facility] Last Admin: 08/09/21 17:32 Dose: 20 mg Documented by: Gabapentin (Gabapentin 300 Mg Cap) 300 mg PO BEDTIME [facility] Guaifenesin (Guaifenesin 600 Mg Sa Tab) 600 mg PO BID [facility] Last Admin: 08/09/21 12:41 Dose: 600 mg Documented by: Heparin Sodium (Porcine) (Heparin 5000 Unit/Ml 1 Ml Vial) 5,000 unit SQ Q8HR [facility] Last Admin: 08/09/21 17:33 Dose: 5,000 unit Documented by: Home Med (Ipratropium/Albuterol Sulfate [Combivent Respimat 20-100 Mcg]) 1 puff IH Q6H PRN PRN Reason: SHORTNESS OF BREATH Ceftriaxone Sodium 1,000 mg/ (Sodium Chloride) 50 mls @ 100 mls/hr IVPB Q12HR [facility]; Protocol Last Admin: 08/09/21 08:50 Dose: 50 mls Documented by: Insulin Human Regular (Insulin -Regular Human 50 Unit/0.5 Ml Ml) 0 unit SQ ACHS [facility]; Protocol Last Admin: 08/09/21 16:30 Dose: Not Given Documented by: Ipratropium [place] (Ipratropium Brom 0.5mg/2.5ml) 0.5 mg NEB [id number] PRN PRN Reason: SHORTNESS OF BREATH Last Admin: 08/09/21 13:52 Dose: 0.5 mg Documented by: Methylprednisolone Sodium Succinate (Methylprednisolone 40 Mg Inj) 40 mg IV Q8HR [facility] Last Admin: 08/09/21 17:32 Dose: 40 mg Documented by: Nifedipine (Nifedipine Xl 60 Mg Tablet) 60 mg PO DAILY [facility] Nifedipine (Nifedipine Xl 60 Mg Tablet) 60 mg PO ONCE ONE Stop: 08/10/21 10:14 Last Admin: 08/09/21 10:27 Dose: 60 mg Documented by: Ondansetron HCl (Ondansetron 4 Mg/2 Ml Vial) 4 mg IV Q6HP PRN PRN Reason: NAUSEA / VOMITING Paroxetine HCl (Paroxetine Hcl 10 Mg Tab) 20 mg PO DAILY [facility] Paroxetine HCl (Paroxetine Hcl 10 Mg Tab) 20 mg PO ONCE ONE Stop: 08/10/21 10:13 Sodium Chloride (Flush Normal Saline 10 Ml) 10 ml IV BID [facility] Last Admin: 08/09/21 08:50 Dose: 10 ml Documented by: Tamsulosin HCl (Tamsulosin 0.4 Mg Sr Cap) 0.4 mg PO BID [facility] Last Admin: 08/09/21 08:49 Dose: 0.4 mg Documented by: Microbiology Results 08/07/21 23:22 Blood - Blood Aerobic Blood Culture - Preliminary No growth in 24 hours. 08/07/21 23:22 Blood - Blood Anaerobic Blood Culture - Preliminary No growth in 24 hours. 08/07/21 23:00 Blood - Blood Aerobic Blood Culture - Preliminary No growth in 24 hours. 08/07/21 23:00 Blood - Blood Anaerobic Blood Culture - Preliminary No growth in 24 hours. Assessment/ Plan: Nephrology [facility]. Reports difficulty with ambulation today. +Cough No chest pain No acute events overnight Vitals, medications, blood work and imaging reviewed in the chart General: In no apparent distress, Oriented x3, Cooperative HEENT: Atraumatic Neck: Supple Respiratory: Expiratory wheezes/ Coarse Cardiovascular: No edema, Regular rate/rhythm Gastrointestinal: Soft and benign, Non-distended Musculoskeletal: No clubbing, No contractures Integumentary: No rashes, No cyanosis Neurological: Normal speech Laboratory Data (last 24 hrs) 08/07/21 23:22: PT 11.0, INR 0.96 08/07/21 23:22: WBC 4.80, Hgb 12.4 L, Hct 38.9 L, Plt Count 209 08/07/21 23:22: Sodium 137, Potassium 4.5, BUN 37 H, Creatinine 4.01 H, Glucose 157 H, Magnesium 2.1, Total Bilirubin 0.4, AST 11 L, ALT 16, Alkaline Phosphatase 145 H Imagings Data: EXAM DESCRIPTION: US - Renal Ultrasound-Complete - 08/08/2021 3:36 am CLINICAL HISTORY: JAZZY COMPARISON: Renal Ultrasound-Complete dated 11/04/2018; CT-STONE PROTOCOL dated 06/30/2010 FINDINGS: The right kidney measures 9.7 x 4.5 x 5.1 cm. The left kidney is absent. Renal cortical thickness and echogenicity are normal. No hydronephrosis or suspicious renal mass. The small 15 millimeter cyst present in the upper pole right kidney with no suspicious characteristics. No bladder wall thickening or mass. No intraluminal stone or mass. IMPRESSION: No hydronephrosis or suspicious renal mass. No bladder abnormality identified. EXAM DESCRIPTION: RAD - Chest Pa And Lat (2 Views) - 08/07/2021 6:26 pm CLINICAL HISTORY: DYSPNEA COMPARISON: July 2018 TECHNIQUE: Frontal and lateral views of the chest were obtained. FINDINGS: The lungs are fibrotic as a baseline. Interstitial opacification is present at each base superimposed on the chronic pattern. Upper lobe vasculature within normal limits. Heart size is normal and central vasculature is within normal limits. No pleural effusion or pneumothorax seen. No acute bony finding noted. No aortic abnormality. IMPRESSION: Bibasilar interstitial edema or infiltrate superimposed on a mild chronic interstitial pattern. Conclusions/Impression: JAZZY vs Progressive disease. Risk factors for CKD: DM, HTN, MVD, BPH, MGUS, Nephrectomy CKD IV/V with proteinuria Left nephrectomy 1994 -No NSAIDs HTN with CKD -Continue Nifedipine Elevated BNP -Echocardiogram pending -Agree with furosemide -Follow up CXR in the am DM II with CKD & Polyneuropathy -RISS Anemia in chronic illness Iron Deficiency 6% -Consider IV iron BPH with LUTS -Continue Flomax BID AM labs ordered.
[2021-08-09] MEDS ORDERED: HOME MED 1 EA UNK (Budesonide/Formoterol Fumarate [Symbicort 160-4.5 Mcg Inhaler] 10.2 GM IH SCH (21:00)
[2021-08-09] MEDS: ATORVASTATIN 40 MG TAB PO SCH (21:12)
[2021-08-09] MEDS: GABAPENTIN 300 MG CAP PO SCH (21:13)
[2021-08-09] MEDS ORDERED: NA CHLORIDE 0.9% 50 ML ONE (21:28)
[2021-08-09] MEDS: DULERA 100/5 (MOMETASONE/FORMOTEROL) INHALER IH SCH (22:16)
[2021-08-10] MEDS: FUROSEMIDE 40 MG/4 ML VIAL IV SCH ×3 (01:01→16:36)
[2021-08-10] MEDS: HEPARIN 5000 UNIT/ML 1 ML VIAL SQ SCH ×3 (01:10→16:36)
[2021-08-10] MEDS: METHYLPREDNISOLONE 40 MG INJ IV SCH ×3 (01:11→16:36)
[2021-08-10 06:17] LABS: Absolute Lymphocytes (CBC) 0.4 K/uL (0.7-4.9); Hematocrit 32.7 % (39.6-49.0); Lymphocytes % 3.8 % (15.3-44.8); MPV 7.8 fL (7.6-11.3); RBC Red Blood Cell Count 3.64 M/uL (4.33-5.43)
[2021-08-10 06:45] LABS: Albumin 2.7 g/dL (3.4-5.0); Bilirubin Total 0.3 mg/dL (0.2-1.0); Magnesium 2.3 mg/dL (1.8-2.4); Potassium 3.8 mmol/L (3.5-5.1); Protein, Total 7.2 g/dL (6.4-8.2)
--- NOTE | 2021-08-10 08:06 | RAD REPORT ---
EXAM DESCRIPTION: Dory Single View08/10/2021 5:42 am CLINICAL HISTORY: Chest pain COMPARISON: August 07, 2021 FINDINGS: Partial resolution in mild bilateral pulmonary opacities. The lungs remain hyperaerated. Heart is mildly enlarged
[2021-08-10] MEDS: FINASTERIDE 5 MG TAB PO SCH (08:32)
[2021-08-10] MEDS: INSULIN -REGULAR HUMAN 50 UNIT/0.5 ML ML SQ SCH ×4 (08:32→20:22)
[2021-08-10] MEDS: allopurinoL 100 MG TAB PO SCH (08:32)
[2021-08-10] MEDS: DULERA 100/5 (MOMETASONE/FORMOTEROL) INHALER IH SCH ×2 (08:32→20:25)
[2021-08-10] MEDS: CYANOCOBALAMIN 1,000 MCG TAB PO SCH (08:33)
[2021-08-10] MEDS: NIFEDIPINE XL 60 MG TABLET PO SCH (08:33)
[2021-08-10] MEDS: VITAMIN D 1000 UNIT TAB PO SCH (08:34)
[2021-08-10] MEDS: TAMSULOSIN 0.4 MG SR CAP PO SCH ×2 (08:34→20:23)
[2021-08-10] MEDS: PARoxetine HCL 10 MG TAB PO SCH (08:35)
[2021-08-10] MEDS: CEFTRIAXONE 1,000 MG in NA CHLORIDE 0.9% 50 ML IVPB SCH ×2 (08:35→20:21)
[2021-08-10] MEDS: GUAIFENESIN 600 MG SA TAB PO SCH ×2 (08:35→20:23)
[2021-08-10] MEDS ORDERED: HOME MED 1 EA UNK (Cholecalciferol (Vitamin D3) [Vitamin D3] 25 MCG Capsule) PO SCH (09:00)
[2021-08-10] MEDS: ALBUTEROL 2.5 MG/3 ML NEB SOL NEB PRN (09:14)
[2021-08-10] MEDS: IPRATROPIUM BROM 0.5MG/2.5ML NEB PRN (09:14)
[2021-08-10] MEDS ORDERED: PARoxetine HCL 10 MG TAB PO ONE (10:12)
[2021-08-10] MEDS ORDERED: NIFEDIPINE XL 60 MG TABLET PO ONE (10:13)
[2021-08-10] MEDS ORDERED: SOD FERRIC GLUC COMPLX/SUCROSE 250 MG in NA CHLORIDE 0.9% 100 ML IV SCH (12:00)
[2021-08-10 12:37] LABS: Platelet Estimate ADEQ; White Blood Cell Scan OK (OK)
[2021-08-10 12:38] LABS: Blood Morphology Comment NOT SEEN (NOT SEEN)
[2021-08-10] MEDS ORDERED: METOPROLOL TARTRATE 5 MG/5 ML INJ IV STA (17:27)
--- NOTE | 2021-08-10 17:56 | CON ---
Date of Consultation: 08/10/2021 Reason For Consultation: Questionable CHF. History Of Present Illness: A 76-year-old male, history of diabetes, COPD, hypertension, chronic kid kasi disease, coronary artery disease, cardiac stent a long time ago and he does not follow up with [facility]. He goes to the [place]. Presented with cough, shortness of breath. Denies having any chest pa in but had some wheezing and some orthopnea. Past Medical History: As outlined above in the HPI. Past Surgical History: Coronary artery stents, history of bladder cancer surgical intervention and n ephrectomy. Medications: Refer reconciliation sheet for detailed list. Allergies: CODEINE AND SULFA. Family History: No premature coronary artery disease. Social History: Does not smoke or drink. Does not use any drugs. Review of Systems: All systems reviewed and they were negative except that mentioned in HPI. Physical Examination: Vital Signs: Reviewed. Temperature is 98, pulse is 98, breathing at 18, blood pressure 132/68, satu rating 93% on room air. General: A pleasant elderly male, in no distress. Head and Neck: Pupils are equal, reactive to light. Intact eye movements. No JVD. No cervical lym phadenopathy. Neck: Supple. Thyroid is not enlarged. Lungs: Significant rhonchi bilaterally. No accessory muscle use or muscle retraction. Heart: Regular rate and rhythm. No extra sounds. Abdomen: Soft, nontender. Bowel sounds positive. No organomegaly. No masses or hernia. No rigidi ty or rebound. Extremities: No edema, clubbing, cyanosis. Intact pulses. Skin: No rash. Neurologic: Alert, awake, oriented x3. No acute focal deficits appreciated. Investigations: White blood cell count 10.10, hemoglobin is 10.5. Sodium 139, BUN 64, creatinine 3. 8. NT-proBNP is 4520. Troponins are 0.05 and 0.03. Chest x-ray, bilateral infiltrates, suggestive of possible edema. Assessment And Recommendations: Shortness of breath, probably due to combination of COPD exacerbatio n with upper respiratory tract infection. Also maybe there is a component of congestive heart failur e as well. The patient has advanced kidney disease and Nephrology is on the case. Continue IV Lasix . Consider increasing the dose to 60 mg q.12 hours and re-evaluate carefully the BUN and creatinine level in response to that. Please obtain an echocardiogram when feasible and further plan accordingmanda y. Thank you for the consult. BLAKE Voice ID: [id number] Report ID: [id number]
[2021-08-10] MEDS: METOPROLOL TAR 50 MG TAB PO SCH (18:42)
[2021-08-10] MEDS ORDERED: CEFTRIAXONE 1000 MG/VIAL ONE (19:27)
[2021-08-10] MEDS ORDERED: NA CHLORIDE 0.9% 50 ML ONE (19:35)
[2021-08-10] MEDS: ATORVASTATIN 40 MG TAB PO SCH (20:23)
[2021-08-10] MEDS: GABAPENTIN 300 MG CAP PO SCH (20:23)
--- NOTE | 2021-08-10 21:30 | P.PN ---
Date of Service: 08/10/21 Vital Signs Temp Pulse Resp BP Pulse Ox 97.5 F 84 18 129/70 95 08/10/21 20:00 08/10/21 20:00 08/10/21 20:00 08/10/21 20:00 08/10/21 20:00 Medications Acetaminophen (Acetaminophen 500 Mg Tab) 500 mg PO Q4HP PRN PRN Reason: Pain scale 2-4 (Mild) Albuterol Sulfate (Albuterol 2.5 Mg/3 Ml Neb Nanda) 2.5 mg NEB Q6HP PRN PRN Reason: SHORTNESS OF BREATH Last Admin: 08/10/21 09:14 Dose: 2.5 mg Documented by: Allopurinol (Allopurinol 100 Mg Tab) 100 mg PO DAILY [facility] Last Admin: 08/10/21 08:32 Dose: 100 mg Documented by: Atorvastatin Calcium (Atorvastatin 40 Mg Tab) 40 mg PO BEDTIME [facility] Last Admin: 08/10/21 20:23 Dose: 40 mg Documented by: Cholecalciferol (Vitamin D 1000 Unit Tab) 1,000 unit PO DAILY [facility] Last Admin: 08/10/21 08:34 Dose: 1,000 unit Documented by: Cyanocobalamin (Cyanocobalamin 1,000 Mcg Tab) 2,000 mcg PO DAILY [facility] Last Admin: 08/10/21 08:33 Dose: 2,000 mcg Documented by: Finasteride (Finasteride 5 Mg Tab) 5 mg PO DAILY [facility] Last Admin: 08/10/21 08:32 Dose: 5 mg Documented by: Furosemide (Furosemide 40 Mg/4 Ml Vial) 20 mg IV Q8HR [facility] Last Admin: 08/10/21 16:36 Dose: 20 mg Documented by: Gabapentin (Gabapentin 300 Mg Cap) 300 mg PO BEDTIME [facility] Last Admin: 08/10/21 20:23 Dose: 300 mg Documented by: Guaifenesin (Guaifenesin 600 Mg Sa Tab) 600 mg PO BID [facility] Last Admin: 08/10/21 20:23 Dose: 600 mg Documented by: Heparin Sodium (Porcine) (Heparin 5000 Unit/Ml 1 Ml Vial) 5,000 unit SQ Q8HR [facility] Last Admin: 08/10/21 16:36 Dose: 5,000 unit Documented by: Home Med (Ipratropium/Albuterol Sulfate [Combivent Respimat 20-100 Mcg]) 1 puff IH Q6H PRN PRN Reason: SHORTNESS OF BREATH Ceftriaxone Sodium 1,000 mg/ (Sodium Chloride) 50 mls @ 100 mls/hr IVPB Q12HR [facility]; Protocol Last Admin: 08/10/21 20:21 Dose: 50 mls Documented by: Insulin Human Regular (Insulin -Regular Human 50 Unit/0.5 Ml Ml) 0 unit SQ ACHS [facility]; Protocol Last Admin: 08/10/21 20:22 Dose: Not Given Documented by: Ipratropium [place] (Ipratropium Brom 0.5mg/2.5ml) 0.5 mg NEB [id number] PRN PRN Reason: SHORTNESS OF BREATH Last Admin: 08/10/21 09:14 Dose: 0.5 mg Documented by: Methylprednisolone Sodium Succinate (Methylprednisolone 40 Mg Inj) 40 mg IV Q8HR [facility] Last Admin: 08/10/21 16:36 Dose: 40 mg Documented by: Metoprolol Tartrate (Metoprolol Tar 50 Mg Tab) 50 mg PO BID 6AM 6PM [facility] Last Admin: 08/10/21 18:42 Dose: 50 mg Documented by: Nifedipine (Nifedipine Xl 60 Mg Tablet) 60 mg PO DAILY [facility] Last Admin: 08/10/21 08:33 Dose: 60 mg Documented by: Ondansetron HCl (Ondansetron 4 Mg/2 Ml Vial) 4 mg IV Q6HP PRN PRN Reason: NAUSEA / VOMITING Paroxetine HCl (Paroxetine Hcl 10 Mg Tab) 20 mg PO DAILY [facility] Last Admin: 08/10/21 08:35 Dose: 20 mg Documented by: Sodium Chloride (Flush Normal Saline 10 Ml) 10 ml IV BID [facility] Last Admin: 08/10/21 20:23 Dose: 10 ml Documented by: Tamsulosin HCl (Tamsulosin 0.4 Mg Sr Cap) 0.4 mg PO BID [facility] Last Admin: 08/10/21 20:23 Dose: 0.4 mg Documented by: Microbiology Results 08/07/21 23:22 Blood - Blood Aerobic Blood Culture - Preliminary No growth in 24 hours. 08/07/21 23:22 Blood - Blood Anaerobic Blood Culture - Preliminary No growth in 24 hours. 08/07/21 23:00 Blood - Blood Aerobic Blood Culture - Preliminary No growth in 24 hours. 08/07/21 23:00 Blood - Blood Anaerobic Blood Culture - Preliminary No growth in 24 hours. Assessment/ Plan: Nephrology [facility]. +Cough No chest pain No acute events overnight Vitals, medications, blood work and imaging reviewed in the chart General: In no apparent distress, Oriented x3, Cooperative HEENT: Atraumatic Neck: Supple Respiratory: Expiratory wheezes/ Coarse Cardiovascular: No edema, Regular rate/rhythm Gastrointestinal: Soft and benign, Non-distended Musculoskeletal: No clubbing, No contractures Integumentary: No rashes, No cyanosis Neurological: Normal speech Laboratory Data (last 24 hrs) 08/07/21 23:22: PT 11.0, INR 0.96 08/07/21 23:22: WBC 4.80, Hgb 12.4 L, Hct 38.9 L, Plt Count 209 08/07/21 23:22: Sodium 137, Potassium 4.5, BUN 37 H, Creatinine 4.01 H, Glucose 157 H, Magnesium 2.1, Total Bilirubin 0.4, AST 11 L, ALT 16, Alkaline Phosphatase 145 H Imagings Data: EXAM DESCRIPTION: US - Renal Ultrasound-Complete - 08/08/2021 3:36 am CLINICAL HISTORY: JAZZY COMPARISON: Renal Ultrasound-Complete dated 11/04/2018; CT-STONE PROTOCOL dated 06/30/2010 FINDINGS: The right kidney measures 9.7 x 4.5 x 5.1 cm. The left kidney is absent. Renal cortical thickness and echogenicity are normal. No hydronephrosis or suspicious renal mass. The small 15 millimeter cyst present in the upper pole right kidney with no suspicious characteristics. No bladder wall thickening or mass. No intraluminal stone or mass. IMPRESSION: No hydronephrosis or suspicious renal mass. No bladder abnormality identified. EXAM DESCRIPTION: RAD - Chest Pa And Lat (2 Views) - 08/07/2021 6:26 pm CLINICAL HISTORY: DYSPNEA COMPARISON: July 2018 TECHNIQUE: Frontal and lateral views of the chest were obtained. FINDINGS: The lungs are fibrotic as a baseline. Interstitial opacification is present at each base superimposed on the chronic pattern. Upper lobe vasculature within normal limits. Heart size is normal and central vasculature is within normal limits. No pleural effusion or pneumothorax seen. No acute bony finding noted. No aortic abnormality. IMPRESSION: Bibasilar interstitial edema or infiltrate superimposed on a mild chronic interstitial pattern. Conclusions/Impression: JAZZY vs Progressive disease. Risk factors for CKD: DM, HTN, MVD, BPH, MGUS, Nephrectomy CKD IV/V with proteinuria Left nephrectomy 1994 -No NSAIDs Acidosis -Start Bicarb HTN with CKD -Continue Nifedipine Elevated BNP -Echocardiogram pending -Agree with furosemide -CXR reviewed DM II with CKD & Polyneuropathy -RISS Anemia in chronic illness Iron Deficiency 6% -Give IV iron BPH with LUTS -Continue Flomax BID Case reviewed with Dr. Navarrete
[2021-08-11] MEDS: METHYLPREDNISOLONE 40 MG INJ IV SCH ×2 (01:05→08:39)
[2021-08-11] MEDS: FUROSEMIDE 40 MG/4 ML VIAL IV SCH ×2 (01:05→08:39)
[2021-08-11] MEDS: HEPARIN 5000 UNIT/ML 1 ML VIAL SQ SCH ×2 (01:06→08:39)
[2021-08-11] MEDS: METOPROLOL TAR 50 MG TAB PO SCH (05:37)
[2021-08-11 06:23] VITALS: O2SAT 95
[2021-08-11] MEDS: INSULIN -REGULAR HUMAN 50 UNIT/0.5 ML ML SQ SCH ×2 (07:30→11:30)
[2021-08-11] MEDS ORDERED: CEFTRIAXONE 1000 MG/VIAL ONE (08:20)
[2021-08-11] MEDS: CEFTRIAXONE 1,000 MG in NA CHLORIDE 0.9% 50 ML IVPB SCH (08:36)
[2021-08-11] MEDS: VITAMIN D 1000 UNIT TAB PO SCH (08:36)
[2021-08-11] MEDS: CYANOCOBALAMIN 1,000 MCG TAB PO SCH (08:37)
[2021-08-11] MEDS: GUAIFENESIN 600 MG SA TAB PO SCH (08:37)
[2021-08-11] MEDS: allopurinoL 100 MG TAB PO SCH (08:37)
[2021-08-11] MEDS: FINASTERIDE 5 MG TAB PO SCH (08:38)
[2021-08-11] MEDS: PARoxetine HCL 10 MG TAB PO SCH (08:38)
[2021-08-11] MEDS: NIFEDIPINE XL 60 MG TABLET PO SCH (08:38)
[2021-08-11] MEDS: TAMSULOSIN 0.4 MG SR CAP PO SCH (08:38)
[2021-08-11] MEDS: DULERA 100/5 (MOMETASONE/FORMOTEROL) INHALER IH SCH (08:39)
[2021-08-11] MEDS ORDERED: SOD FERRIC GLUC COMPLX/SUCROSE 250 MG in NA CHLORIDE 0.9% 250 ML IV ONE (09:00)
[2021-08-11] MEDS ORDERED: SODIUM BICARB 325 MG TAB PO SCH (09:00)
[2021-08-11] MEDS ORDERED: SOD FERRIC GLUC COMPLX/SUCROSE 250 MG in NA CHLORIDE 0.9% 100 ML IV ONE (09:00)
[2021-08-11 13:55] VITALS: BP 135/77; TEMP 97.4
--- NOTE | 2021-08-11 14:02 | P.PN ---
Date of Service: 08/09/21 Subjective Patient is clinically still very short of breath and has crackles. Spoke with Nephrology and they want continue with diuresing. Echocardiogram pending. Review of Systems 10-point ROS is otherwise unremarkable Physical Examination - Vital Signs Reviewed - Physical Exam General: Alert, In no apparent distress, Oriented x3 Respiratory: Mild expiratory wheezing; crackles Cardiovascular: Regular rate/rhythm, Normal S1 S2, No murmurs Gastrointestinal: Normal bowel sounds, Soft and benign, Non-distended, No tenderness Musculoskeletal: No clubbing, No swelling, No tenderness Neurological: Sensation intact, Cranial nerves 3-12 intact Assessment & Plan - Problems (Diagnosis) (1) COPD exacerbation Current Visit: No Status: Acute (2) Pulmonary edema Current Visit: Yes Status: Acute Qualifiers: Chronicity: acute Qualified Code(s): J81.0 - Acute pulmonary edema (3) Acute kidney injury superimposed on chronic kidney disease Current Visit: Yes Status: Acute (4) CAD (coronary artery disease) Current Visit: Yes Status: Chronic Qualifiers: Coronary Disease-Associated Artery/Lesion type: unspecified vessel or lesion type [place] vs. 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 Continue with albuterol and Atrovent nebs 2. Continue with IV steroids 3. Gentle diuretics; possible diastolic heart failure 4. Pulmonary consultation if symptoms do not improve 5. Room air O2 sats; 6. Repeat chest x-ray in the morning 7. Out of bed and ambulate 8. GI and DVT prophylaxis
--- NOTE | 2021-08-11 14:03 | P.PN ---
Date of Service: 08/10/21 Subjective Patient is slowly improving. Renal function is stable. Patient still feeling short of breath and wants to go home in a.m.. Review of Systems 10-point ROS is otherwise unremarkable Physical Examination - Vital Signs Reviewed - Physical Exam General: Alert, In no apparent distress, Oriented x3 Respiratory: Mild expiratory wheezing; crackles Cardiovascular: Regular rate/rhythm, Normal S1 S2, No murmurs Gastrointestinal: Normal bowel sounds, Soft and benign, Non-distended, No tenderness Musculoskeletal: No clubbing, No swelling, No tenderness Neurological: Sensation intact, Cranial nerves 3-12 intact Assessment & Plan - Problems (Diagnosis) (1) COPD exacerbation Current Visit: No Status: Acute (2) Pulmonary edema Current Visit: Yes Status: Acute Qualifiers: Chronicity: acute Qualified Code(s): J81.0 - Acute pulmonary edema (3) Acute kidney injury superimposed on chronic kidney disease Current Visit: Yes Status: Acute (4) CAD (coronary artery disease) Current Visit: Yes Status: Chronic Qualifiers: Coronary Disease-Associated Artery/Lesion type: unspecified vessel or lesion type [place] vs. transplanted heart: [place] heart Associated angina: without angina Qualified Code(s): I25.10 - Atherosclerotic heart disease of [place] coronary artery without angina pectoris (5) HTN (hypertension) Current Visit: Yes Status: Chronic Qualifiers: Hypertension type: primary hypertension Qualified Code(s): I10 - Essential (primary) hypertension (6) Diabetes mellitus Current Visit: No Status: Chronic Qualifiers: Diabetes mellitus type: type 2 Diabetes mellitus care home insulin use: without care home use Diabetes mellitus complication status: with unspecified complications - Plan Continue with plan of care as mentioned below: 1. Continue with albuterol and Atrovent nebs 2. Continue with IV steroids; change to oral steroids 3. Gentle diuretics; possible diastolic heart failure 4. Pulmonary consultation if symptoms do not improve 5. Room air O2 sats; 6. Repeat chest x-ray in the morning 7. Out of bed and ambulate 8. GI and DVT prophylaxis
--- NOTE | 2021-08-11 14:06 | P.DS ---
Discharge Date: 08/11/21 Disposition: ROUTINE DISCHARGE Discharge Condition: GOOD Reason for Admission: COPD, pulmonary edema, acute on CKD - Problems (1) COPD exacerbation Status: Acute (2) Pulmonary edema Status: Acute Qualifiers: Chronicity: acute Qualified Code(s): J81.0 - Acute pulmonary edema (3) Acute kidney injury superimposed on chronic kidney disease Status: Acute (4) CAD (coronary artery disease) Status: Chronic Qualifiers: Coronary Disease-Associated Artery/Lesion type: unspecified vessel or lesion type [place] vs. transplanted heart: [place] heart Associated angina: without angina Qualified Code(s): I25.10 - Atherosclerotic heart disease of [place] coronary artery without angina pectoris (5) HTN (hypertension) Status: Chronic Qualifiers: Hypertension type: primary hypertension Qualified Code(s): I10 - Essential (primary) hypertension (6) Diabetes mellitus Status: Chronic Qualifiers: Diabetes mellitus type: type 2 Diabetes mellitus mcc insulin use: without mcc use Diabetes mellitus complication status: with unspecified complications Brief History of Present Illness: Mr. López is a 76 yo M with DM, HTN, CKD4, CAD, COPD who presents with one day of SOB, [place]. O2 sats on room air 84%. He reports cough, chills. Denies nausea, vomiting, diarrhea. He reports mild relief of symptoms with inhalers at home. Improvement of symptoms with breathing treatments and steroids in the ER. He has no known history of CHF. Denies chest pain. Resting comfortably in bed, on nasal cannula but continues to have audible wheezing. Hospital Course: Patient has done well during hospital stay. Patient is clinically doing much better. At this time, patient is stable for discharge home. Vital Signs/Physical Exam: Temp Pulse Resp BP Pulse Ox 97.4 F 65 21 H 135/77 97 08/11/21 13:54 08/11/21 13:54 08/11/21 13:54 08/11/21 13:54 08/11/21 13:54 General: Alert, In no apparent distress, Oriented x3 Laboratory Data at Discharge: WBC 10.10 K/uL (4.3-10.9) D 08/10/21 06:01 Hgb 10.5 g/dL (13.6-17.9) L 08/10/21 06:01 Hct 32.7 % (39.6-49.0) L 08/10/21 06:01 Plt Count 199 K/uL (152-406) 08/10/21 06:01 PT 11.0 SECONDS (9.5-12.5) 08/07/21 23:22 INR 0.96 08/07/21 23:22 Sodium 139 mmol/L (136-145) 08/10/21 06:01 Potassium 3.8 mmol/L (3.5-5.1) 08/10/21 06:01 BUN 64 mg/dL (7-18) H 08/10/21 06:01 Creatinine 3.81 mg/dL (0.55-1.3) H 08/10/21 06:01 Glucose 217 mg/dL (74-106) H 08/10/21 06:01 Uric Acid 5.4 mg/dL (3.5-7.2) 08/09/21 03:29 Phosphorus 4.0 mg/dL (2.5-4.9) 08/09/21 03:29 Magnesium 2.3 mg/dL (1.8-2.4) 08/10/21 06:01 Total Bilirubin 0.3 mg/dL (0.2-1.0) 08/10/21 06:01 AST 17 U/L (15-37) 08/10/21 06:01 ALT 25 U/L (12-78) 08/10/21 06:01 Alkaline Phosphatase 104 U/L (45-117) 08/10/21 06:01 Troponin I 0.03 ng/mL (0.0-0.045) 08/08/21 12:24 Triglycerides 79 mg/dL (<150) 08/09/21 03:29 Cholesterol 83 mg/dL (<200) 08/09/21 03:29 HDL Cholesterol 30 mg/dL (40-60) L 08/09/21 03:29 Cholesterol/HDL Ratio 2.77 08/09/21 03:29 Home Medications: Atorvastatin Calcium 40 mg PO BEDTIME 08/02/18 Finasteride [Proscar*] 5 mg PO DAILY 08/02/18 Gabapentin 300 mg PO BEDTIME 08/02/18 Paroxetine HCl [Paxil] 20 mg PO DAILY 08/02/18 allopurinoL [Zyloprim*] 100 mg PO DAILY 08/03/18 Budesonide/Formoterol Fumarate [Symbicort 160-4.5 Mcg Inhaler] 2 puff IH BID #60 hfa.aer.ad 08/06/18 Cholecalciferol (Vitamin D3) [Vitamin D3] 25 mcg PO DAILY 08/08/21 Cyanocobalamin [Vitamin B-12*] 2,000 mcg PO DAILY 08/08/21 Ipratropium/Albuterol Sulfate [Combivent Respimat 20-100 Mcg] 1 puff IH Q6H PRN 08/08/21 Nifedipine [Procardia Xl] 60 mg PO DAILY 08/08/21 Apixaban [Eliquis *] 2.5 mg PO BID #60 tablet 08/11/21 Furosemide [Lasix] 40 mg PO DAILY #30 tablet 08/11/21 Levalbuterol HCl [Xopenex] 1.25 mg NEB Q6H PRN #60 ml 08/11/21 Metoprolol Tartrate [Lopressor*] 50 mg PO BID 6AM 6PM #60 tab 08/11/21 Na Bicarb Tab [Sodium Bicarb 325 MG Tab*] 325 mg PO BID #60 tab 08/11/21 Tamsulosin [Flomax*] 0.4 mg PO BID #60 cap 08/11/21 predniSONE [Deltasone] 20 mg PO BID #20 tab 08/11/21 New Medications: Apixaban [Eliquis *] 2.5 mg PO BID #60 tablet Tamsulosin [Flomax*] 0.4 mg PO BID #60 cap Furosemide [Lasix] 40 mg PO DAILY #30 tablet Metoprolol Tartrate [Lopressor*] 50 mg PO BID 6AM 6PM #60 tab predniSONE [Deltasone] 20 mg PO BID #20 tab Na Bicarb Tab [Sodium Bicarb 325 MG Tab*] 325 mg PO BID #60 tab Levalbuterol HCl [Xopenex] 1.25 mg NEB Q6H PRN #60 ml PRN Reason: dyspnea Physician Discharge Instructions: OK TO DC IV AND DC HOME FOLLOW-UP WITH PRIMARY CARE PROVIDER IN 1-2 WEEKS FOLLOW-UP WITH CARDIOLOGY IN 1-2 WEEKS for atrial fibrillation FOLLOW-UP WITH Pulmonary in 1-2 weeks RETURN TO THE ER IF symptoms worsen CALL or TEXT DR. VILLANUEVA AT [phone] IF ANY QUESTIONS REGARDING HOSPITAL STAY. PLEASE CALL THE FLOOR AT [phone] IF ANY MEDICATION OR NURSING QUESTIONS. Diet: Renal Activity: Fall precautions Followup: NONE,NONE [Primary Care Provider] - Time spent managing pt's care (in minutes): 35
[2021-08-11] MEDS ORDERED: APIXABAN 2.5 MG TABLET PO SCH (21:00)
--- NOTE | 2021-08-13 08:42 | ECHO ---
HEIGHT: 5 ft 9 in WEIGHT: 184 lb 4 oz DATE OF STUDY: 08/08/[address]: Daniel Jimenez 2-DIMENSIONAL: YES M.MODE: YES DOPPLER: YES COLOR FLOW: YES TDS: PORTABLE: DEFINITY: BUBBLE STUDY: DIAGNOSIS: PULMONARY EDEMA CARDIAC HISTORY: CATHERIZATION: SURGERY: PROSTHETIC VALVE: PACEMAKER: MEASUREMENTS (cm) DIASTOLIC (NORMALS) SYSTOLIC (NORMALS) IVSd 0.9 (0.6-1.2) LA Diam 3.7 (1.9-4.0) LVEF 55-60% LVIDd 4.7 (3.5-5.7) LVIDs 3.5 (2.0-3.5) %FS 26% LVPWd 0.9 (0.6-1.2) Ao Diam 3.1 (2.0-3.7) 2 DIMENSIONAL ASSESSMENT: RIGHT ATRIUM: NORMAL LEFT ATRIUM: NORMAL RIGHT VENTRICLE: NORMAL LEFT VENTRICLE: NORMAL TRICUSPID VALVE: NORMAL MITRAL VALVE: MILD MITRAL REGURGITATION PULMONIC VALVE: NORMAL AORTIC VALVE: MILD AORTIC INSUFFIENCY PERICARDIAL EFFUSION: NONE AORTIC ROOT: NORMAL LEFT VENTRICULAR WALL MOTION: NORMAL DOPPLER/COLOR FLOW: SEE BELOW COMMENTS: NORMAL LEFT VENTRICULAR EJECTION FRACTION 55-60% WITH NORMAL WALL MOTION. MODERATE DIASTOLIC DYSFUNCTION. MILD MITRAL REGURGITATION. MILD AORTIC INSUFFIENCY. TECHNOLOGIST: EILEEN APARICIO
[2021-08-14 08:58] LABS: Immunoglobulin A 520 mg/dL (70-320); Immunoglobulin G 1302 mg/dL (600-1540); Immunoglobulin M 39 mg/dL (50-300)
[2021-08-14 14:22] LABS: HBsAG Nonreactive (Nonreactive)
[2021-08-14 20:01] LABS: Albumin, (SPE) 3.2 g/dL (3.8-4.8); Alpha-1-Globulins 0.5 g/dL (0.2-0.3); Gamma Globulins 1.3 g/dL (0.8-1.7); INTERPRETATION REPORT
== END 2021-08-11 16:05 | disposition home or self-care (01) | DRG 189 ==
LOC: ER 14:31 → ERHOLD 08-08 00:36 → 2ND 08-08 02:10
PROVIDERS: ADMIT Hospitalist; ATTEND Hospitalist
DX: J81.0 Acute pulmonary edema (principal); N17.9 Acute kidney failure, unspecified; J44.1 Chronic obstructive pulmonary disease with (acute) exacerbation; N18.4 Chronic kidney disease, stage 4 (severe); E87.2 Acidosis; I12.9 Hypertensive chronic kidney disease with stage 1 through stage 4 chronic kidney disease, or unspecified chronic kidney disease; E11.22 Type 2 diabetes mellitus with diabetic chronic kidney disease; E11.51 Type 2 diabetes mellitus with diabetic peripheral angiopathy without gangrene; E11.42 Type 2 diabetes mellitus with diabetic polyneuropathy; E78.5 Hyperlipidemia, unspecified; D50.9 Iron deficiency anemia, unspecified; N40.1 Benign prostatic hyperplasia with lower urinary tract symptoms; D63.8 Anemia in other chronic diseases classified elsewhere; F17.210 Nicotine dependence, cigarettes, uncomplicated; I25.10 Atherosclerotic heart disease of native coronary artery without angina pectoris; Z88.5 Allergy status to narcotic agent; Z88.1 Allergy status to other antibiotic agents; Z85.51 Personal history of malignant neoplasm of bladder; Z79.899 Other long term (current) drug therapy; Z79.84 Long term (current) use of oral hypoglycemic drugs; Z79.52 Long term (current) use of systemic steroids; Z20.822 Contact with and (suspected) exposure to COVID-19
CPT/HCPCS: 0240U; 36415; 71045; 71046; 76770; 80048; 80053; 80061; 80076; 81001; 81003; 81015; 82550; 82570; 82607; 82728; 82746; 82784; 82947; 83036; 83540; 83605; 83735; 83880; 84100; 84132; 84145; 84156; 84165; 84300; 84439; 84443; 84466; 84484; 84550; 85025; 85044; 85610; 86317; 86334; 86335; 86704; 87040; 87070; 87086; 87088; 87205; 87340; 93005; 93306; 94640; 94760; 96365; 96375; 99285; J1644; J1940; J2916; J2920; J2930; J3475; J7606; P9047

== ENCOUNTER 2021-10-10 00:35 | Emergency (ER) | payer OTHER ==
--- OUTSIDE RECORDS SUMMARY | 2021-10-10 00:43 | XMS REPORT | Continuity of Care Document ---
:1945 Author Organization [facility] t Address [address] [place] [address] Care Team Providers Name Role Phone PCP, DOES NOT HAVE A Primary Care Physician Unavailable Nyla GUERRERO, A Attending Clinician Unavailable TRACE Attending Clinician Unavailable Rosales Ibarra MD Attending Clinician Trace RIBEIRO Attending Clinician TRACE Admitting Clinician Unavailable Trace RIBEIRO Admitting Clinician Payers Payer Name Policy Type Policy Number Effective Date Expiration Date S ource Problems Condition Condition Condition Status Onset Resolution Last Treating Co mments Source Name Details Category Date Date Treatment Clinician Date Troponin I Troponin I Disease Active U nivers above above 1-26 [place] 00 [place] Atrial Atrial Disease Active Univers flutter flutter 1-26 ity of with rapid with [place] ventricula ventricula 00 Me dical r response r response Br anch Pulmonary Pulmonary Disease Active Uni vers hypertensi hypertensi 1-25 it y of on on 00:00: [place] [facility] Obesity Obesity Disease Active Univers (BMI (BMI 1-24 ity of 30-39.9) 30-39.9) 00:00: [place] [facility] Coronary Coronary Disease Active Unive rs artery artery 1-24 ity of disease disease 00:00: [place] involving involving 00 Medi unruly [place] coronary coronary artery of artery of [place] heart heart without without angina angina pectoris pectoris Atrial Atrial Disease Active Univers flutter flutter 1-24 ity of 00:00: [place] [facility] PAD PAD Disease Active Univers (periphera (periphera 1-24 it y of l artery l artery 00:00: [place] disease) disease) 00 Medica l Branch Chronic Chronic Disease Active Univers diastolic diastolic 1-24 ity of congestive congestive 00:00[place] heart heart 00 Medical failure failure Branch Primary Primary Disease Active Univers hypertensi hypertensi 1-24 it y of on on 00:: [place] [facility] Other Other Disease Active Univers hyperlipid hyperlipid 1-24 it y of emia emia 00:00: [place] [facility] JAZZY (acute JAZZY (acute Disease Active U nivers kidney kidney 1-24 ity of injury) injury) 00:00: [place] [facility] Toe ulcer, Toe ulcer, Disease Active U nivers right, right, 2-20 ity of limited to limited to 00:[place] breakdown breakdown 00 Medi unruly of skin of skin Branch COPD COPD Disease Active Univers exacerbati exacerbati 2-16 it y of on on 00:00: [place] [facility] COPD COPD Disease Active Univers (chronic (chronic 2-15 ity of obstructiv obstructiv 00:00: [place] e e 00 Medical pulmonary pulmonary Bran ch disease) disease) HCAP HCAP Disease Active Univers (healthcar (healthcar 1-20 it y of e-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 e-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 00:00: [place] ed ed 00 Medical pneumonia) pneumonia) Br anch Eschar of Eschar of Disease Active 2016-08 Uni vers foot foot 1-28 ity of 00:00: [place] [facility] Respirator Respirator Disease Active 2016-08 U nivers y failure, y failure, 1-26 it y of acute acute 00:00: [place] [facility] Allergies, Adverse Reactions, Alerts Allergy Allergy Status Severity Reaction(s) Onset Inactive Treating Comm ents Source Name Type Date Date Clinician Lisaaci Propensi Active Rash LEUKOCYTO Uni vers llin-David ty to 2 CLASTIC ity of obactam adverse 00:00: VASCULITI [place] reaction 00 S Medical s Branch PIPERACI DRUG Active Rash Univers LLIN-DAVID 2- ity of OBACTAM 00:00: [place] 00 Medical Branch Amiodaro Drug Active Rash Prior to Univer s ne Allergy 2-24 rash ity of 00:00: onset pt [place] 00 given Medical amiodaron Branch e, generaliz ed purpuric rash noted; however was started on zosyn around the same time. So may have been from that AMIODARO DRUG Active High Rash Univers NE INGREDI 2-24 ity of 00:00: [place] 00 Medical Branch Codeine Propensi Active Rash Univers ty to 4-03 ity of adverse 00:00: [place] reaction 00 Medical s Branch Sulfa Propensi Active Swelling Univer s (Sulfona ty to 4-03 ity of mide adverse 00:00: [place] Antibiot reaction 00 Medica l ics) s Branch CODEINE DRUG Active Rash Univers INGREDI 4-03 ity of 00:00: [place] 00 Medical Branch SULFA Drug Active Swelling 2016-0 Univers (SULFONA Class 4-03 ity of MIDE 00:00: [place] ANTIBIOT 00 Medical ICS) Branch Social History Social Habit Start Date Stop Date Quantity Comments Source Exposure to Not sure [facility] SARS-CoV-2 [place] Medical (event) Branch Alcohol intake 2021-09-07 2021-09-07 Current University of 00:00:00 00:00:00 non-drinker of [facility] [place] [facility] alcohol Branch (finding) Tobacco use and 2017-09-25 2017-09-25 Never used Universit y of exposure 00:00:00 00:00:00 [facility] Tobacco Comment 2017-09-25 2017-09-25 Quit 1 month ago Uni versity of 00:00:00 00:00:00 [facility] Sex Ass[birth year] At [birth year] Universit y of 00:00:00 00:00:00 [facility] Smoking Status Start Date Stop Date Source Former smoker 2017-09-25 00:00:00 2017-09-25 00:00:00 [facility] ty [facility] [place] [facility] Medications Ordered Filled Start Stop Current Ordering Indication Dosage Frequency Signature Comments Components Source Medication Medication Date Date Medication? Clinician (SIG) Name Name linezolid 2021- Yes 600mg 600 mg, Uni vers (ZYVOX) 09-12 Oral, ity of tablet 600 02:00: 01:59 Q12H, 4 [place] as mg 00 :00 doses, Medical First dose Branch (after last modificati on) on Fri09/11/21 at 2000, Last dose on Fri09/13/21 at 0800, AILYN
Re ason for Anti-Infec tive: Documented Infection< br>Documen jose Infection Site: Urine
D uration of Therapy: 7 days
Re stricted use approved by: ADC PROVIDER aspirin 81 2021- Yes [id number] 81mg Take 1 Univers mg EC 09-12 tablet by ity of tablet 00:00: 05:59 mouth [place] 00 :00 daily for Medical 30 days. Branch aspirin 81 2021- Yes [id number] 81mg Take 1 Univers mg EC 09-12 tablet by ity of tablet 00:00: 05:59 mouth [place] 00 :00 daily for Medical 30 days. Branch atorvastati Yes 40mg Take 40 mg Univers n 40 mg 09-11 by mouth ity of tablet 18:18: at [place] 48 bedtime. Medical Branch gabapentin Yes 300mg Take 300 Un cameron 300 mg 2-01 mg by ity of tablet 18:18: mouth [place] 48 daily. Medical Branch FINASTERIDE Yes 5mg 5 mg. Unive rs , BULK, 2 ity of MISC 18:18: [place] 48 Medical Branch PAROXETINE Yes 20mg Take 20 mg U nivers HCL (PAXIL 2- by mouth. ity of ORAL) 18:18: [place] 48 Medical Branch allopurinol Yes 100mg Take 100 U nivers 100 mg 2-01 mg by ity of tablet 18:18: mouth [place] 48 daily. Medical Branch Mometasone Yes Inhale. Univ ers (ASMANEX 2 ity of TWISTHALER) 18:18: [place] 110 mcg (30 48 Medical doses) Branch aerosol powder tamsulosin Yes .4mg Take 0.4 Uni vers (FLOMAX) 2-01 mg by ity of 0.4 mg 24 18:18: mouth [place] hr capsule 48 daily. Medical Branch atorvastati Yes 40mg Take 40 mg Univers n 40 mg 2-01 by mouth ity of tablet 18:18: at [place] 48 bedtime. Medical Branch gabapentin Yes 300mg Take 300 Un cameron 300 mg 2-01 mg by ity of tablet 18:18: mouth [place] 48 daily. Medical Branch FINASTERIDE Yes 5mg 5 mg. Unive rs , BULK, 09-11 ity of MISC 18:18: [place] 48 Medical Branch PAROXETINE Yes 20mg Take 20 mg U nivers HCL (PAXIL 09-11 by mouth. ity of ORAL) 18:18: [place] 48 Medical Branch allopurinol Yes 100mg Take 100 U nivers 100 mg 2-01 mg by ity of tablet 18:18: mouth [place] 48 daily. Medical Branch Mometasone Yes Inhale. Univ ers (ASMANEX - ity of TWISTHALER) 18:18: [place] 110 mcg (30 48 Medical doses) Branch aerosol powder tamsulosin Yes .4mg Take 0.4 Uni vers (FLOMAX) 2-01 mg by ity of 0.4 mg 24 18:18: mouth [place] hr capsule 48 daily. Medical Branch NIFEdipine 2021- No 60mg Take 60 mg Univers XL 60 mg 24 09-11 by mouth ity of hr tablet 17:09: 00:00 daily. [place] 04 :00 Medical Branch apixaban 5 2021- Yes [id number] 5mg Take 1 Univ ers mg tablet 09-11 tablet by ity of 00:00: 05:59 mouth 2 [place] 00 :00 (two) Medical times Branch daily for 30 days. Indication s: prevention of thromboemb olism in paroxysmal atrial fibrillati on ferrous 202- Yes [id number] 325mg Take 1 U nivers sulfate 325 09-11 tablet by it y of mg (65 mg 00:00: 05:59 mouth 2 [place] iron) 00 :00 (two) Medical tablet times Branch daily for 30 days. diltiazem 2021- Yes [id number] 120mg Take 1 Univers 120 mg 24 09-11 capsule by ity of hr capsule 00:00: 05:59 mouth [place] 00 :00 daily for Medical 30 days. Branch apixaban 5 2021- Yes [id number] 5mg Take 1 Univ ers mg tablet 09-11 tablet by ity of 00:00: 05:59 mouth 2 [place] 00 :00 (two) Medical times Branch daily for 30 days. Indication s: prevention of thromboemb olism in paroxysmal atrial fibrillati on ferrous 2021- Yes [id number] 325mg Take 1 U nivers sulfate 325 09-11 tablet by it y of mg (65 mg 00:00: 05:59 mouth 2 [place] iron) 00 :00 (two) Medical tablet times Branch daily for 30 days. diltiazem 2021- Yes [id number] 120mg Take 1 Univers 120 mg 24 09-11 capsule by ity of hr capsule 00:00: 05:59 mouth [place] 00 :00 daily for Medical 30 days. Branch linezolid 2021- Yes [id number] 600mg Take 1 Univers 600 mg 09-11 tablet by ity of tablet 00:00: 05:59 mouth [place] 00 :00 every 12 Medical (twelve) Branch hours for 7 days. linezolid 2021- Yes [id number] 600mg Take 1 Univers 600 mg 09-11 tablet by ity of tablet 00:00: 05:59 mouth [place] 00 :00 every 12 Medical (twelve) Branch hours for 7 days. diltiazem 2021- No [id number] 30mg Take 1 Univers 30 mg 09-11 tablet by ity of tablet 00:00: 00:00 mouth [place] 00 :00 every 6 Medical (six) Branch hours for 30 days. HYDROcodone Yes 1{tbl} 1 tablet, Univers -acetaminop 1-31 Oral, ity of hen (NORCO 21:51: Q6HPRN, [place] 5) 5-325 mg 07 Starting Medi unruly tablet 1 on Mon Branch tablet 09/10/21 at 1551, Until Discontinu ed, Routine, Pain (scale 7-10) traMADoL 2021- No 50mg 50 mg, Univer s (ULTRAM) 09-10 Oral, ity of tablet 50 19:30: 19:08 ONCE, 1 [place] mg 00 :00 dose, On Medical Fri Branch 09/10/21 at 1330, Routine apixaban Yes 5mg 5 mg, Univers (ELIQUIS) 09-10 Oral, BID, ity of tablet 5 mg 02:00: First dose [place] 00 on [place] [facility] 09/09/21 at Branch 2000, Until Discontinu ed, Routine
Indicatio ns: Non-Valvul ar Atrial Fibrillati on linezolid 2021- No 600mg 600 mg, Uni vers (ZYVOX) 09-07 Oral, ity of tablet 600 02:00: 19:37 Q12H, [place] mg 00 :29 First dose Medical on Dee Branch 09/06/21 at 2000, Until Discontinu ed, AILYN
Re ason for Anti-Infec tive: Documented Infection< br>Documen jose Infection Site: Urine
D uration of Therapy: 7 days
Re stricted use approved by: ADC PROVIDER NaCl 0.9% IV Univers (NS) 09-06 Infusion, ity of PEDIATRIC 05:15: 15:14 at 75 [place] IV infusion 00 :00 mL/hr, Medica l CONTINUOUS Branch , Starting on Fri09/05/21 at 2315, Until Fri09/06/21 at 0914, Routine benzonatate Yes 100mg 100 mg, Un cameron (TESSALON 09-06 Oral, ity of PERLES) 00:54: Q8HPRN, [place] capsule 100 06 Starting Medi unruly mg on Fri Branch 09/05/21 at 1854, Until Discontinu ed, Routine, Cough diltiazem Yes 30mg 30 mg, Univer s (CARDIZEM) 09-05 Oral, Q6H, ity of tablet 30 18:00: First dose [place] mg 00 on Wed Medical 09/05/21 at Branch 1200, Until Discontinu ed, Routine azithromyci No 500mg 500 mg, IV Univers n 09-05 Piggyback, ity of (ZITHROMAX) 01:45: 19:55 Q24H ABX, [place] 500 mg in 00 :34 First dose Medi unruly NaCl 0.9% on Fri Branch (NS) 250 mL 09/04/21 at VIAL-MATE 1945, IV Until piggyback Discontinu ed, Administer over 60 Minutes, 250 mL
Reas on for Anti-Infec tive: Documented Infection< br>Documen jose Infection Site: Respirator y
Durat ion of Therapy: 7 days vancomycin No 1250mg 1,250 mg, Univers 1250 mg in 09-04 IV ity of NS 250 mL 16:30: 17:41 Infusion, [place] RTU IV 00 :00 ONCE, 1 Medical Piggyback dose, On Branch 1,250 mg Fri09/04/21 at 1030, Administer over 90 Minutes
Reason for Anti-Infec tive: Documented Infection< br>Documen jose Infection Site: Respirator y
Durat ion of Therapy: Other (see Comments) iron No 200mg 200 mg, IV Unive rs sucrose 09-04 Infusion, ity of (VENOFER) 15:30: 17:42 ONCE, [place] 200 mg in 00 :00 Administer Medi unruly NaCl 0.9% over 2.5 Branch (NS) 100 mL Hours, On infusion Fri09/04/21 at 0930, For 1 dose methylPREDN No 40mg 40 mg, Uni vers ISolone sod 09-04 Intravenou i ty of succ 15:00: 14:49 s, DAILY, [place] (SOLU-MEDRO 00 :00 4 doses, Medi unruly L (PF)) First dose Branch injection (after 40 mg last modificati on) on Fri09/04/21 at 0900, Last dose on Fri09/07/21 at 0900, STAT cefTRIAXone No 1000mg 1,000 mg, Univers (ROCEPHIN) 09-04 IV ity of 1,000 mg in 05:45: 16:07 Piggyback, [place] NaCl 0.9% 00 :48 Q24H ABX, Medic al (NS) 50 mL First dose [facility] MINI-BAG on Fri09/03/21 at 2345, Until Discontinu ed, Administer over 30 Minutes, 50 mL
Reas on for Anti-Infec tive: Empiric Therapy for Suspected Infection< br>Empiric Therapy Site: Urine
D uration of therapy: 7 days tamsulosin Yes .4mg 0.4 mg, Univ ers (FLOMAX) 09-04 Oral, BID, ity o f capsule 0.4 03:15: First dose [place] mg 00 (after Medical last Branch modificati on) on Fri09/03/21 at 2115, Until Discontinu ed, Routine ferrous Yes 325mg 325 mg, Univer s sulfate 09-03 Oral, BID, ity of tablet 325 16:30: First dose [place] mg 00 on [facility] 09/03/21 at Branch 1030, Until Discontinu ed, Routine aspirin EC Yes 81mg 81 mg, Unive rs tablet 81 09-03 Oral, ity of mg 15:00: DAILY, [place] 00 First dose Medical on [facility] 09/03/21 at 0900, Until Discontinu ed, Routine PARoxetine Yes 20mg 20 mg, Unive rs (PAXIL) 09-03 Oral, ity of tablet 20 15:00: DAILY, [place] mg 00 First dose Medical on [facility] 09/03/21 at 0900, Until Discontinu ed finasteride Yes 5mg 5 mg, Unive rs (PROSCAR) 09-03 Oral, ity of tablet 5 mg 15:00: DAILY, [place] 00 First dose Medical on [facility] 09/03/21 at 0900, Until Discontinu ed NIFEdipine 2021- No 60mg 60 mg, Univ ers ER tablet 09-03 Oral, ity of 60 mg 15:00: 14:27 DAILY, [place] 00 :50 First dose Medical on [facility] 09/03/21 at 0900, Until Discontinu ed tamsulosin 0 2021- No .4mg 0.4 mg, Uni vers (FLOMAX) 09-03 Oral, ity of capsule 0.4 15:00: 03:06 DAILY, [place] as mg 00 :19 First dose Medical on [facility] 09/03/21 at 0900, Until Discontinu ed, Routine azithromyci 2021- No 500mg 500 mg, IV Univers n 09-03 Piggyback, ity of (ZITHROMAX) 07:30: 00:32 Q24H ABX, [place] 500 mg in 00 :51 First dose [facility] NaCl 0.9% on [facility] (NS) 250 mL 09/03/21 at VIAL-MATE 0130, IV Until piggyback Discontinu ed, Administer over 60 Minutes, 250 mL
Reas on for Anti-Infec tive: Empiric Therapy for Suspected Infection< br>Empiric Therapy Site: Respirator y
Durat ion of therapy: 7 days albuterol Yes 2.5mg 2.5 mg, Univ ers (PROVENTIL) 09-03 Inhalation it y of 2.5 mg /3 06:29: , Q4HPRN, [place] as mL (0.083 15 Starting Medica l %) on [facility] nebulizer 09/03/21 at solution 0029, 2.5 mg Until Discontinu ed, Routine, Shortness of Breath, Wheezing, Bronchospa sm heparin 2021- No 5000U 5,000 Univers (porcine) 09-03 01-30 Units, ity of injection 04:00: 17:52 Subcutaneo [place] 5,000 Units 00 :16 us, Q8H, Medi unruly First dose Branch on [place] 09/02/21 at 2200, Until Discontinu ed, Routine atorvastati Yes 40mg 40 mg, Univ ers n (LIPITOR) 09-03 Oral, QHS, it y of tablet 40 03:00: First dose [place] mg 00 on [facility] 09/02/21 at Branch 2100, Until Discontinu ed, Routine budesonide- Yes 2{puff} 2 Puff, Univers formoteroL 09-03 Inhalation ity of (SYMBICORT) 02:00: , BID, [place] 160-4.5 00 First dose Medica l mcg/actuati on [facility] on inhaler 09/02/21 at 2 Puff 1999, Until Discontinu ed, Routine ipratropium Yes 3mL 3 mL, Unive rs -albuteroL 09-03 Inhalation ity of (DUONEB) 02:00: , Q4H, [place] 0.5 mg-3 00 First dose Medic al mg(2.5 mg (after Branch base)/3 mL last nebulizer modificati solution 3 on) on [facility] 09/02/21 at 2000, Until Discontinu ed, AILYN furosemide 2021- No 20mg 20 mg, Univ ers (LASIX) 09-03 Slow IV ity of injection 01:15: 02:16 Push, [place] 20 mg 00 :00 ONCE, 1 Medical dose, On [facility] 09/02/21 at 1915, Routine methylPREDN 2021- No 40mg 40 mg, Uni vers ISolone sod 09-03 Intravenou i ty of succ 00:00: 21:42 s, Q6H, [place] (SOLU-MEDRO 00 :53 First dose Me dical L (PF)) (after Branch injection last 40 mg reorder) on [place] 09/02/21 at 1800, Until Discontinu ed, STAT Sliding Yes Subcutaneo Univ ers Scale 1-23 us, TID ity of Insulin - 23:00: MEALS+HS, [place] as Lispro 00 First dose Medical (HumaLOG) + on [facility] Fsbg 09/02/21 at Testing 1700, Until Discontinu ed, Routine glucagon Yes 1mg 1 mg, Univers (GLUCAGEN 09-02 Intramuscu ity of DIAGNOSTIC 22:44: lar, PRN, [place] KIT) 34 Starting Medical injection 1 on [facility] mg 09/02/21 at 1644, Until Discontinu ed, AILYN, Blood Glucose < or = 70 mg/dL and patient is unable to swallow or has mental changes. dextrose 50 2021-0 Yes 25mL 25 mL, Univ ers % in water 09-02 Slow IV ity of (D50W) 22:44: Push, PRN, [place] injection 34 Starting Medica l 25 mL on [facility] 09/02/21 at 1644, Until Discontinu ed, AILYN, Blood Glucose < or = 70 mg/dL and patient is unable to swallow or has mental status changes. acetaminoph Yes 650mg 650 mg, Un cameron en 09-02 Oral, ity of (TYLENOL) 21:38: Q6HPRN, [place] tablet 650 12 Starting Medic al mg on [place] Branch 09/02/21 at 1538, Until Discontinu ed, Routine, Pain (scale 1-3) ipratropium 2021- No 3mL 3 mL, Univ ers -albuteroL 09-02 Inhalation it y of (DUONEB) 19:15: 18:44 , ONCE, 1 [place] as 0.5 mg-3 00 :00 dose, On Medical mg(2.5 mg [facility] base)/3 mL 09/02/21 at nebulizer 1315, AILYN solution 3 mL Saxagliptin 2021- No 2.5mg Take 2.5 Univers 2.5 mg 09-02 mg by ity of tablet 18:17: 00:00 mouth [place] 03 :00 daily. Medical Branch furosemide 2021- No 20mg Take 20 mg Univers 20 mg 09-02 by mouth ity of tablet 18:17: 00:00 daily. [place] 03 :00 Medical Branch busPIRone 2021- No 10mg Take 10 mg U nivers 10 mg 09-02 by mouth ity of tablet 18:17: 00:00 daily. [place] 03 :00 Medical Branch GLIPIZIDE 2021- No 10mg Take 10 mg U nivers ORAL 09-02 by mouth. ity of 18:17: 00:00 [place] :00 Medical Branch amLODIPine 2021- No 5mg Take 5 mg U nivers 5 mg tablet 09-02 by mouth ity of 18:17: 00:00 daily. [place] 03 :00 Medical Branch tiotropium 2021- No Inhale. Uni vers bromide 09-02 ity of (SPIRIVA 18:17: 00:00 [place] WITH 03 :00 Medical HANDIHALER Branch INHALE) magnesium 2021- No 2g 2 g, IV Univ ers sulfate in 09-02 Piggyback, it y of water 2 16:45: 16:45 ONCE, 1 [place] gram/50 mL 00 :00 dose, On Medic al (4 %) [place] Branch infusion 2 09/02/21 at g 1045, AILYN ipratropium 2021- No 3mL 3 mL, Univ ers -albuteroL 09-02 Inhalation it y of (DUONEB) 16:45: 16:05 , ONCE, 1 [place] as 0.5 mg-3 00 :00 dose, On Medical mg(2.5 mg [place] base)/3 mL 09/02/21 at nebulizer 1045, AILYN solution 3 mL methylPREDN 2021- No 40mg 40 mg, Uni vers ISolone sod 09-02 Intravenou i ty of succ 16:45: 15:44 s, ONCE, 1 [place] (SOLU-MEDRO 00 :00 dose, On Medi unruly L (PF)) [place] Branch injection 09/02/21 at 40 mg 1045, STAT benzonatate Yes [id number] 100mg Take 1 Univers 100 mg 1-23 capsule by ity of capsule 00:00: mouth 3 [place] 00 (three) Medical times Branch daily as needed for Cough. albuterol Yes [id number] 2{puff} Inhale 2 Univers 90 1-23 Puffs ity of mcg/actuati 00:00: every 4 Naresh as on inhaler 00 (four) Medical hours as Branch needed for Wheezing or Shortness of Breath. albuterol Yes [id number] 2.5mg Inhale 3 Univers 2.5 mg /3 1-23 mL every 4 ity of mL (0.083 00:00: (four) [place] %) 00 hours. May Medical nebulizer also Branch solution nebulize one extra every 6 hours. furosemide 0 Yes [id number] 20mg Take 1 U nivers 20 mg 1-23 tablet by ity of tablet 00:00: mouth [place] 00 every Medical morning. Branch benzonatate 2021-0 Yes [id number] 100mg Take 1 Univers 100 mg 1-23 capsule by ity of capsule 00:00: mouth 3 [place] 00 (three) Medical times Branch daily as needed for Cough. albuterol Yes [id number] 2{puff} Inhale 2 Univers 90 1-23 Puffs ity of mcg/actuati 00:00: every 4 Na[place] as on inhaler 00 (four) Medical hours as Branch needed for Wheezing or Shortness of Breath. albuterol Yes [id number] 2.5mg Inhale 3 Univers 2.5 mg /3 1-23 mL every 4 ity of mL (0.083 00:00: (four) [place] %) 00 hours. May Medical nebulizer also Branch solution nebulize one extra every 6 hours. furosemide Yes [id number] 20mg Take 1 U nivers 20 mg 1-23 tablet by ity of tablet 00:00: mouth [place] 00 every Medical morning. Branch predniSONE 2021- No [id number] 40mg Take 2 Univers 20 mg 1-23 -31 tablets by ity of tablet 00:00: 05:59 mouth [place] 00 :00 daily for Medical 7 days. Branch budesonide- Yes [id number] 2{puff} Inhale 2 Univers formoterol 3-29 Puffs 2 ity of (SYMBICORT) 00:00: (two) [place] 160-4.5 00 times Medical mcg/actuati daily. Branch on inhaler budesonide- Yes [id number] 2{puff} Inhale 2 Univers formoterol 3-29 Puffs 2 ity of (SYMBICORT) 00:00: (two) [place] 160-4.5 00 times Medical mcg/actuati daily. Branch on inhaler apixaban 5 2021- No 5mg Take 1 Univ ers mg tablet 3-05 09-23 tablet by ity of 00:00: 00:00 mouth 2 [place] 00 :00 (two) Medical times Branch daily. ipratropium Yes 3mL Inhale 3 Un cameron -albuterol 2-26 mL every 6 ity of 0.5 mg-3 00:00: (six) [place] mg(2.5 mg 00 hours. Medical base)/3 mL Branch nebulizer solution ipratropium Yes 3mL Inhale 3 Un cameron -albuterol 2-26 mL every 6 ity of 0.5 mg-3 00:00: (six) [place] mg(2.5 mg 00 hours. Medical base)/3 mL Branch nebulizer solution budesonide- 2021- No 2{puff} Inhale 2 [facility] formoterol 10-06 Puffs 2 ity o f 160-4.5 00:00: 00:00 (two) [place] mcg/actuati 00 :00 times Medical on inhaler daily. Branch albuterol-i 2021- No 1{puff} Inhale 1 [facility] pratropium 10-06 Puff every it y of 20-100 00:00: 00:00 6 (six) [place] mcg/actuati 00 :00 hours. Medica l on inhaler Branch Immunizations Ordered Filled Immunization Date Status Comments [facility] e Immunization Name Name Pneumococcal 13 2017-10-06 Completed Universit y of Conjugate, PCV13 00:00:00 [facility] dical (Prevnar 13) [place] Pneumococcal 13 2017-10-06 Completed Universit y of Conjugate, PCV13 00:00:00 [facility] dical (Prevnar 13) [place] Influenza Virus 2017-05-11 Completed Universit y of Vaccine 00:00:00 [facility] Influenza Virus 2017-05-11 Completed Universit y of Vaccine 00:00:00 [facility] Vital Signs Vital Name Observation Time Observation Value Comments Source Systolic blood 2021-09-11 22:27:00 126 mm[Hg] Univer sity of pressure [facility] Diastolic blood 2021-09-11 22:27:00 66 [facility]Hg[facility] Heart rate 2021-09-11 22:27:00 77 /min [facility] Body temperature 2021-09-11 22:27:00 37 [facility] Res[facility] rate 2021-09-11 22:27:00 18 /min [facility] Oxygen saturation in 2021-09-11 22:27:00 96 /min [facility] Arterial blood by [facility] [place] [facility] Pulse oximetry [place] Body weight 2021-09-10 10:13:00 91.627 kg [facility] BMI 2021-09-10 10:13:00 29.83 kg/m2 [facility] Body height 2021-09-02 15:19:00 175.3 cm [facility] Procedures Procedure Date / Time Performing Clinician Source Performed POCT GLUCOSE (AUTOMATED) 2021-09-11 17:51:00 [facility] ([facility]OMATED) 2021-09-11 14:11:00 Jere Rangel [facility] BASIC METABOLIC PANEL (NA, 2021-09-11 10:33:00 Lance Solis [facility] K, CL, CO2, GLUCOSE, BUN, Medica l Branch CREATININE, [place]) CBC WITH DIFF 2021-09-11 10:33:00 Lance Solis [facility] [place] [facility] POCT GLUCOSE (AUTOMATED) 2021-09-11 02:20:00 Jere Rangel [facility] POCT GLUCOSE (AUTOMATED) 2021-09-10 23:10:00 Jere Rangel [facility] POCT GLUCOSE (AUTOMATED) 2021-09-10 17:41:00 Jere Rangel [facility] POCT GLUCOSE (AUTOMATED) 2021-09-10 13:53:00 Jere Rangel [facility] POCT GLUCOSE (AUTOMATED) 2021-09-10 03:13:00 Jere Rangel [facility] POCT GLUCOSE (AUTOMATED) 2021-09-09 23:15:00 Jere Rangel [facility] POCT GLUCOSE (AUTOMATED) 2021-09-09 17:16:00 Jere Rangel [facility] POCT GLUCOSE (AUTOMATED) 2021-09-09 13:49:00 Jere Rangel [facility] BASIC METABOLIC PANEL (NA, 2021-09-09 11:00:00 Lance Solis [facility] K, CL, CO2, GLUCOSE, BUN, Med[facility] CREATININE, CA) LIPID PANEL (79880)(TOTAL 2021-09-09 11:00:00 Katya Ayoub [facility] CHOLESTEROL, [facility] TRIGLYCERIDES, HDL) CBC WITH DIFF 2021-09-09 11:00:00 Lance Solis [facility] N-TERMINAL PRO-BNP 2021-09-09 11:00:00 [facility] 2021-09-09 03:38:00 Jere Rangel [facility] POCT GLUCOSE (AUTOMATED) 2021-09-08 23:10:00 Jere Rangel [facility] POCT GLUCOSE (AUTOMATED) 2021-09-08 17:41:00 Jere Rangel [facility] POCT GLUCOSE (AUTOMATED) 2021-09-08 13:46:00 Jere Rangel [facility] POCT GLUCOSE (AUTOMATED) 2021-09-08 03:01:00 Jere Rangel [facility] POCT GLUCOSE (AUTOMATED) 2021-09-07 22:41:00 Jere Rangel [facility] POCT GLUCOSE (AUTOMATED) 2021-09-07 18:09:00 Jere Rangel [facility] POCT GLUCOSE (AUTOMATED) 2021-09-07 14:17:00 Jere Rangel [facility] BASIC METABOLIC PANEL (NA, 2021-09-07 11:30:00 [facility], CO2, GLUCOSE, BUN, Med[facility] CREATININE, CA) CBC WITH DIFF 2021-09-07 11:30:00 [facility] 2021-09-07 03:00:00 Jere Rangel [facility] POCT GLUCOSE (AUTOMATED) 2021-09-07 01:32:00 Jere Rangel [facility] POCT GLUCOSE (AUTOMATED) 2021-09-06 22:54:00 Jere Rangel [facility] POCT GLUCOSE (AUTOMATED) 2021-09-06 17:37:00 Jere Rangel [facility] EXTRA TUBE URINE CULTURE 2021-09-06 14:38:00 Larry Martinez [facility] URINALYSIS MICROSCOPIC 2021-09-06 14:35:00 Agueda, James [facility] CREATININE, URINE RANDOM 2021-09-06 14:35:00 Agueda James [facility] UREA NITROGEN, URINE 2021-09-06 14:35:00 James Romeo [facility] POCT GLUCOSE (AUTOMATED) 2021-09-06 13:47:00 Jere Rangel [facility] PHOSPHORUS 2021-09-06 08:42:00 Jere Rangel [facility] MAGNESIUM 2021-09-06 08:42:00 Agueda [facility] TROPONIN I 2021-09-06 08:42:00 [facility] BASIC METABOLIC PANEL (NA, 2021-09-06 08:42:00 James Romeo [facility] K, CL, CO2, GLUCOSE, BUN, Medica l Branch CREATININE, CA) CBC WITH DIFF 2021-09-06 08:42:00 [facility] US ABDOMINAL AORTA SCREEN 2021-09-06 02:52:00 Lance Solis [facility] POCT GLUCOSE (AUTOMATED) 2021-09-06 02:49:00 Jere Rangel [facility] POCT GLUCOSE (AUTOMATED) 2021-09-05 22:13:00 Jere Rangel [facility] VANCOMYCIN RANDOM LEVEL 2021-09-05 22:08:00 Mahogany Rodriguez [facility] POCT GLUCOSE (AUTOMATED) 2021-09-05 17:39:00 Jere Rangel [facility] BASIC METABOLIC PANEL (NA, 2021-09-05 16:12:00 [facility], [facility], CO2, GLUCOSE, BUN, Medica l Branch CREATININE, CA) N-TERMINAL PRO-BNP 2021-09-05 16:12:00 Leslie Garcia [facility] POCT GLUCOSE (AUTOMATED) 2021-09-05 13:34:00 Jeer Rangel [facility] POCT GLUCOSE (AUTOMATED) 2021-09-05 02:03:00 Jere Rangel [facility] POCT GLUCOSE (AUTOMATED) 2021-09-04 23:20:00 Jere Rangel [facility] RESPIRATORY PANEL BY PCR 2021-09-04 20:58:00 Mahogany Rodriguez [facility] CT ABDOMEN PELVIS WO 2021-09-04 20:44:03 Mahogany Rodriguez [facility] POCT GLUCOSE (AUTOMATED) 2021-09-04 17:38:00 Jere Rangel [facility] MRSA / MSSA SCREEN BY PCR, 2021-09-04 16:15:00 Leanne Gannon [facility] POCT GLUCOSE (AUTOMATED) 2021-09-04 13:38:00 Jere Rangel [facility] TROPONIN I 2021-09-04 10:42:00 Monisha carolina [facility] BASIC METABOLIC PANEL (NA, 2021-09-04 10:42:00 Jeer Rangel [facility] K, CL, CO2, GLUCOSE, BUN, Medica l Branch CREATININE, CA) CBC WITH DIFF 2021-09-04 10:42:00 Jere Rangel [facility] N-TERMINAL PRO-BNP 2021-09-04 10:42:00 Deborah Bearden [facility] BLOOD CULTURE SCREEN 2021-09-04 05:37:00 Deborah Bearden [facility] PROCALCITONIN 2021-09-04 05:37:00 Monisha [facility] POCT GLUCOSE (AUTOMATED) 2021-09-04 02:44:00 Jere Rangel [facility] POCT GLUCOSE (AUTOMATED) 2021-09-04 01:30:00 Jere Rangel [facility] URINALYSIS 2021-09-03 22:57:00 Mirella Burdick [facility] URINE CULTURE 2021-09-03 22:57:[address] [facility]SE (AUTOMATED) 2021-09-03 22:52:00 Jere Rangel [facility] US RETROPERITONEAL 2021-09-03 17:48:51 [facility]unice [facility] ([facility]) 2021-09-03 17:27:00 Jere Rangel [facility] TRANSTHORACIC ECHO (TTE) 2021-09-03 15:58:00 Mirella Burdick [facility] POCT GLUCOSE (AUTOMATED) 2021-09-03 14:12:00 Jere Rangel [facility] ACUTE CARE VENOUS BLOOD 2021-09-03 10:38:00 Deborah Bearden [facility] VITAMIN B12, LEVEL 2021-09-03 09:39:00 Mirella Burdick [facility] URIC ACID 2021-09-03 09:38:00 Deborah Bearden [facility] MAGNESIUM 2021-09-03 09:38:00 Trace Jere [facility] TROPONIN I 2021-09-03 09:38:00 Mirella Burdick [facility] BASIC METABOLIC PANEL (NA, 2021-09-03 09:38:00 Jere Rangel [facility] K, CL, CO2, GLUCOSE, BUN, Medica l Branch CREATININE, CA) CBC WITH DIFF 2021-09-03 09:38:00 Jere Rangel [facility] N-TERMINAL PRO-BNP 2021-09-03 09:38:00 Deborah Bearden [facility] FREE T3 2021-09-03 09:38:00 Mirella Burdick [facility] PHOSPHORUS 2021-09-03 02:38:00 Jere Rangel [facility] URIC ACID 2021-09-03 02:38:00 Monisha carolina [facility] TROPONIN I 2021-09-03 02:38:00 Mirella Burdick [facility] POCT GLUCOSE (AUTOMATED) 2021-09-02 22:48:00 Jere Rangel [facility] POCT GLUCOSE (AUTOMATED) 2021-09-02 21:32:00 Jere Rangel [facility] ACUTE CARE ARTERIAL BLOOD 2021-09-02 16:56:00 Quinn Ibarra [facility] GAS [facility] XR CHEST 1 VW 2021-09-02 16:29:28 Quinn Ibarra [facility] RAPID INFLUENZA A/B 2021-09-02 15:40:00 Quinn Ibarra [facility] (ID NOW RAPID 2021-09-02 15:38:00 Quinn Ibarra [facility] TESTING) [facility] LAB ONLY COVID 2021-09-02 15:38:00 Quinn Ibarra [facility] INTERPRETATION [facility] BLOOD CULTURE SCREEN 2021-09-02 15:32:00 Quinn [facility] LIP[facility] 2021-09-02 15:32:00 Qiunn Ibarra [facility] FERRITIN SERUM 2021-09-02 15:32:00 Gennaro Mirellasugar [facility] TROPONIN I 2021-09-02 15:32:00 Quinn Ibarra [facility] FREE T4 2021-09-02 15:32:00 Gennaro [facility] THYROID STIMULATING 2021-09-02 15:32:00 Gennaro [facility] HORMONE [facility] COMP. METABOLIC PANEL 2021-09-02 15:32:00 Quinn Ibarra [facility] ([id number]) [facility] IRON PANEL 2021-09-02 15:32:00 Gennaro Mirellasugar [facility] CBC WITH DIFF 2021-09-02 15:32:00 Quinn Ibarra [facility] GLYCOSYLATED HEMOGLOBIN 2021-09-02 15:32:00 Gennaro [facility] (A1C) [facility] PROTHROMBIN TIME / INR 2021-09-02 15:32:00 Quinn Ibarra [facility] ACTIVATED PARTIAL THRMPLAS 2021-09-02 15:32:00 Quinn Ibarra [facility] N-TERMINAL PRO-BNP 2021-09-02 15:32:00 Quinn Ibarra [facility] PROCALCITONIN 2021-09-02 15:32:00 Mirella Burdick [facility] BLOOD CULTURE WORKUP 2021-09-02 15:32:00 [facility] ECG ROUTINE & RHYTHM 2021-09-02 15:16:43 [facility] Start End Encounter Admission Attending Care Care Encounter Source Date/Time Date/Time Type Type Clinicians Facility Department ID 2021-09-05 [id number] [facility] 12:23:38 [id number] 2021-09-05 [facility] [id number] [facility] [address] 12:15:10 [id number] [facility] 2021-09-12 2021-09-12 Transition [facility] [id number] [facility] 00:00:00 00:00:00 of Care Hemanth [id number] [id number] [facility] [address] 2021-09-02 2021-09-11 Inpatient X TLNGUYỄN [facility] [id number] [facility] 09:15:00 18:12:00 [facility] 2021-09-02 2021-09-11 Hospital Quinn Ibarra [facility] [id number] Univers 09:15:00 18:12:00 Encounter Trace Jere BOWERS [id number] ity [facility] [id number] [facility] [id number] [facility] [address] 2020-08-02 2020-08-02 [facility] [id number] [facility] 2020-07-31 2020-07-31 [facility] [id number] [facility] Results Test Description Test Time Test Comments Results Result Comments Source POCT GLUCOSE (AUTOMATED) 2021-09-11 17:56:19 Test Item Value Reference Range Interpretation Comme nts POCT GLU (test code = 2035656503) 143 mg/dL 70-110 H Lab Interpretation (test code = 69291-5) [facility]2021-09-11 14:31:01 Test Item Value Reference Range Interpretation Comments POCT GLU (test code = 1488159940) 140 mg/dL 70-110 H Lab Interpretation (test code = Abnormal 13360-7) [facility] (NA, K, CL, CO2, GLUCOSE, BUN, CREATININE, CA)2021-09-11 11:27:07 Test Item Value Reference Range Interpretation Comments NA (test code = 142 mmol/L 135-145 6850173664) K (test code = 4.7 mmol/L 3.5-5.0 9217123628) CL (test code = 116 mmol/L 98-108 H 8534130147) CO2 TOTAL (test code = 21 mmol/L 23-31 L 2548326007) AGAP (test code = 2-16 2482430493) BUN (test code = 53 mg/dL 7-23 H 6915379367) GLUCOSE (test code = 126 mg/dL 70-110 H 3503819275) CREATININE (test code = 2.92 mg/dL 0.60-1.25 H 4279462224) CALCIUM (test code = 8.8 mg/dL 8.6-10.6 6027716145) eGFR (test code = mL/min/1.73m2 8975021637) RADHA (test code = RADHA) Association of Glomerular Filtration Rate (GFR) and Staging of Kidney Disease* + --+ --+ ------+| GFR (mL/min/1.73 m2) ?| With Kidney Damage ?| ?Without Kidney Damage+ --------+ --------+ +| ?>90 ?| ?Stage one ?| ? Normal ?+ ---+ ---+ -------+| ?60-89 ?| ?Stage two ?| ? Decreased GFR ? + --+ --+ ------+| ?30-59 ?| ?Stage three ?| ? Stage three ? + --+ --+ ------+| ?15-29 ?| ?Stage four ? | ? Stage four ?+ ---+ ---+ -------+| ?<15 (or dialysis) ? ?| ?Stage five ? | ? Stage five ?+ ---+ ---+ -------+ *Each stage assumes the associated GFR level has been in effect for at least three months. ?Stages 1 to 5, with or without kidney disease, indicate chronic kidney disease. Notes: Determination of stages one and two (with eGFR >59mL/min/1.73 m2) requires estimation of kidney damage for at least three months as defined by structural or functional abnormalities of the kidney, manifested by either:Pathological abnormalities or Markers of kidney damage (including abnormalities in the composition of the blood or urine or abnormalities in imaging tests). Lab Interpretation Abnormal (test code = 55880-3) [facility] WITH [id number] 11:10:42 Test Item Value Reference Range Interpretation Comments WBC (test code = See_Comment [Automated 6690-2) message] The sy stem which generated this result transmitted reference range : 4.20 - 10.70 10*3/?L. The reference range was not used to interpret this result as normal/abnormal . RBC (test code = See_Comment L [Automated 789-8) message] The sy stem which generated this result transmitted reference range : 4.26 - 5.52 10*6/?L. The reference range was not used to interpret this result as normal/abnormal . HGB (test code = 8.4 g/dL 12.2-16.4 L 718-7) HCT (test code = 27.9 % 38.4-49.3 L 4544-3) MCV (test code = 94.9 fL 81.7-95.6 787-2) MCH (test code = 28.6 pg 26.1-32.7 785-6) MCHC (test code = 30.1 g/dL 31.2-35.0 L 786-4) RDW-SD (test code = 52.9 fL 38.5-51.6 H 58074-9) RDW-CV (test code = 15.3 % 12.1-15.4 788-0) PLT (test code = See_Comment [Automated 777-3) message] The sy stem which generated this result transmitted reference range : 150 - 328 10*3/ ?L. The reference r hilary was not used to interpret this result as normal/abnormal . MPV (test code = 10.4 fL 9.8-13.0 80391-3) NRBC/100 WBC (test See_Comment [Automat ed code = 3087107591) message] The system which generated this result transmitted reference range : 0.0 - 10.0 /100 WBCs. The refer ence range was not u sed to interpret th is result as normal/abnormal . NRBC x10^3 (test code <0.01 See_Comment [Auto mated = 8015203709) message] The s ystem which generated this result transmitted reference range : 10*3/?L. The reference range was not used to interpret this result as normal/abnormal . GRAN MAT (NEUT) % 77.5 % (test code = 770-8) IMM GRAN % (test code 0.50 % = 6211684618) LYMPH % (test code = 15.6 % 736-9) MONO % (test code = 5.5 % 5905-5) EOS % (test code = 0.9 % 713-8) BASO % (test code = 0.0 % 706-2) GRAN MAT x10^3(ANC) 4.93 10*3/uL 1.99-6.95 (test code = 2318422978) IMM GRAN x10^3 (test 0.03 10*3/uL 0.00-0.06 code = 0555492544) LYMPH x10^3 (test code 0.99 10*3/uL 1.09-3.23 L = 731-0) MONO x10^3 (test code 0.35 10*3/uL 0.36-1.02 L = 742-7) EOS x10^3 (test code = 0.06 10*3/uL 0.06-0.53 711-2) BASO x10^3 (test code <0.03 0.01-0.09 = 704-7) Lab Interpretation Abnormal (test code = 56075-4) [facility] GLUCOSE (AUTOMATED)2021-09-11 02:38:30 Test Item Value Reference Range Interpretation Comments POCT GLU (test code = 8672137209) 195 mg/dL 70-110 H Lab Interpretation (test code = Abnormal 58665-8) [facility] GLUCOSE (AUTOMATED)2021-09-10 23:44:28 Test Item Value Reference Range Interpretation Comments POCT GLU (test code = 3141839467) 147 mg/dL 70-110 H Lab Interpretation (test code = Abnormal 60670-7) [facility] GLUCOSE (AUTOMATED)2021-09-10 18:03:55 Test Item Value Reference Range Interpretation Comments POCT GLU (test code = 8595660151) 162 mg/dL 70-110 H Lab Interpretation (test code = Abnormal 23709-8) [facility]73959[facility]TOTAL CHOLESTEROL, TRIGLYCERIDES, HDL)2021-09-10 16:55:36 Test Item Value Reference Range Interpretation Comments CHOL (test code = 93 mg/dL 120-200 L 4857300323) HDL (test code = 56 mg/dL >40 7514243460) HDLC RATIO (test code = See_Comment [Au tomated message] 6008017474) The system [employer] generated this result transmitted ref erence range: <=5.0. T he reference range was not used to int erpret this result as normal/abnormal . TRIG (test code = 85 mg/dL 30-170 7307675644) LDL CHOL (test code = 20 mg/dL See_Comment [Auto mated message] 15801-3) The system [employer] generated this result transmitted ref erence range: <=160. T he reference range was not used to int erpret this result as normal/abnormal . VLDL (test code = 17 mg/dL 5-60 8503292509) Lab Interpretation (test Abnormal code = 12565-0) [facility] GLUCOSE (AUTOMATED)2021-09-10 14:34:31 Test Item Value Reference Range Interpretation Comments POCT GLU (test code = 2761959523) 150 mg/dL 70-110 H Lab Interpretation (test code = Abnormal 47336-8) [facility] GLUCOSE (AUTOMATED)2021-09-10 03:18:02 Test Item Value Reference Range Interpretation Comments POCT GLU (test code = 6023317539) 163 mg/dL 70-110 H Lab Interpretation (test code = Abnormal 93824-9) [facility] GLUCOSE (AUTOMATED)2021-09-09 23:22:00 Test Item Value Reference Range Interpretation Comments POCT GLU (test code = 3809910837) 153 mg/dL 70-110 H Lab Interpretation (test code = Abnormal 83469-3) [facility] [id number] 20:42:21 Test Item Value Reference Range Interpretation Comments NT-proBNP (test code 3860 pg/mL See_Comment H [Autom ated = 9881035570) message] The system which generated this result transmitted reference range : <=450. The reference range was not used to interpret this result as normal/abnormal . RADHA (test code = RADHA) Biotin has been reported to cause a negative bias, interpret results relative to patient's use of biotin. Lab Interpretation Abnormal (test code = 39913-5) [facility] GLUCOSE (AUTOMATED)2021-09-09 17:29:37 Test Item Value Reference Range Interpretation Comments POCT GLU (test code = 3592060314) 121 mg/dL 70-110 H Lab Interpretation (test code = Abnormal 47777-8) [facility] GLUCOSE (AUTOMATED)2021-09-09 13:54:41 Test Item Value Reference Range Interpretation Comments POCT GLU (test code = 8894624958) 118 mg/dL 70-110 H Lab Interpretation (test code = Abnormal 02848-1) [facility] (NA, K, CL, CO2, GLUCOSE, BUN, CREATININE, CA)2021-09-09 13:01:38 Test Item Value Reference Range Interpretation Comments NA (test code = 141 mmol/L 135-145 2456676630) K (test code = 4.7 mmol/L 3.5-5.0 3176484035) CL (test code = 115 mmol/L 98-108 H 3091372272) CO2 TOTAL (test code = 22 mmol/L 23-31 L 6962243392) AGAP (test code = 2-16 0296172253) BUN (test code = 59 mg/dL 7-23 H 2636680060) GLUCOSE (test code = 114 mg/dL 70-110 H 7597868908) CREATININE (test code = 3.09 mg/dL 0.60-1.25 H 7657647261) CALCIUM (test code = 8.9 mg/dL 8.6-10.6 5149225978) eGFR (test code = mL/min/1.73m2 7094535171) RADHA (test code = RADHA) Association of Glomerular Filtration Rate (GFR) and Staging of Kidney Disease* + --+ --+ ------+| GFR (mL/min/1.73 m2) ?| With Kidney Damage ?| ?Without Kidney Damage+ --------+ --------+ +| ?>90 ?| ?Stage one ?| ? Normal ?+ ---+ ---+ -------+| ?60-89 ?| ?Stage two ?| ? Decreased GFR ? + --+ --+ ------+| ?30-59 ?| ?Stage three ?| ? Stage three ? + --+ --+ ------+| ?15-29 ?| ?Stage four ? | ? Stage four ?+ ---+ ---+ -------+| ?<15 (or dialysis) ? ?| ?Stage five ? | ? Stage five ?+ ---+ ---+ -------+ *Each stage assumes the associated GFR level has been in effect for at least three months. ?Stages 1 to 5, with or without kidney disease, indicate chronic kidney disease. Notes: Determination of stages one and two (with eGFR >59mL/min/1.73 m2) requires estimation of kidney damage for at least three months as defined by structural or functional abnormalities of the kidney, manifested by either:Pathological abnormalities or Markers of kidney damage (including abnormalities in the composition of the blood or urine or abnormalities in imaging tests). Lab Interpretation Abnormal (test code = 16834-3) [facility] WITH [id number] 12:42:15 Test Item Value Reference Range Interpretation Comments WBC (test code = See_Comment [Automated 8355-2) message] The sy stem which generated this result transmitted reference range : 4.20 - 10.70 10*3/?L. The reference range was not used to interpret this result as normal/abnormal . RBC (test code = See_Comment L [Automated 299-8) message] The sy stem which generated this result transmitted reference range : 4.26 - 5.52 10*6/?L. The reference range was not used to interpret this result as normal/abnormal . HGB (test code = 8.6 g/dL 12.2-16.4 L 718-7) HCT (test code = 28.5 % 38.4-49.3 L 4544-3) MCV (test code = 95.6 fL 81.7-95.6 787-2) MCH (test code = 28.9 pg 26.1-32.7 785-6) MCHC (test code = 30.2 g/dL 31.2-35.0 L 786-4) RDW-SD (test code = 52.5 fL 38.5-51.6 H 62550-7) RDW-CV (test code = 15.1 % 12.1-15.4 788-0) PLT (test code = See_Comment [Automated 777-3) message] The sy stem which generated this result transmitted reference range : 150 - 328 10*3/ ?L. The reference r hilary was not used to interpret this result as normal/abnormal . MPV (test code = 10.5 fL 9.8-13.0 88635-7) NRBC/100 WBC (test See_Comment [Automat ed code = 4040812434) message] The system which generated this result transmitted reference range : 0.0 - 10.0 /100 WBCs. The refer ence range was not u sed to interpret th is result as normal/abnormal . NRBC x10^3 (test code <0.01 See_Comment [Auto mated = 2071626061) message] The s ystem which generated this result transmitted reference range : 10*3/?L. The reference range was not used to interpret this result as normal/abnormal . GRAN MAT (NEUT) % 81.8 % (test code = 770-8) IMM GRAN % (test code 0.50 % = 1903960805) LYMPH % (test code = 13.0 % 736-9) MONO % (test code = 4.3 % 5905-5) EOS % (test code = 0.4 % 713-8) BASO % (test code = 0.0 % 706-2) GRAN MAT x10^3(ANC) 6.71 10*3/uL 1.99-6.95 (test code = 2719217025) IMM GRAN x10^3 (test 0.04 10*3/uL 0.00-0.06 code = 1707035634) LYMPH x10^3 (test code 1.07 10*3/uL 1.09-3.23 L = 731-0) MONO x10^3 (test code 0.35 10*3/uL 0.36-1.02 L = 742-7) EOS x10^3 (test code = 0.03 10*3/uL 0.06-0.53 L 711-2) BASO x10^3 (test code <0.03 0.01-0.09 = 704-7) Lab Interpretation Abnormal (test code = 95811-6) [facility] CULTURE [id number] 06:01:53 Test Item Value Reference Range Interpretation Comments Blood Culture-Aerobic No organisms No growth Previo us (test code = 24803-7) isolated prelim inary verified result was Culture In Progress on 09/04/2021 at 03 01 CSTPrevious preliminary verified result was No growth a t 24 hours on 09/05/2021 at 00 01 CSTPrevious preliminary verified result was No growth a t 48 hours on 09/06/2021 at 00 01 CSTPrevious preliminary verified result was No growth a t 72 hours on 09/07/2021 at 00 01 [employer] Blood No organisms No growth Previous Culture-Anaerobic isolated preliminar y (test code = 97062-8) verifi ed result was Culture In Progress on 09/04/2021 at 03 01 CSTPrevious preliminary verified result was No growth a t 24 hours on 09/05/2021 at 00 01 CSTPrevious preliminary verified result was No growth a t 48 hours on 09/06/2021 at 00 01 CSTPrevious preliminary verified result was No growth a t 72 hours on 09/07/2021 at 00 01 [employer] Lab Interpretation Normal (test code = 90309-1) [facility] CULTURE [id number] 06:01:53 Test Item Value Reference Range Interpretation Comments Blood Culture-Aerobic No organisms No growth Previo us (test code = 33530-7) isolated prelim inary verified result was Culture In Progress on 09/04/2021 at 03 01 CSTPrevious preliminary verified result was No growth a t 24 hours on 09/05/2021 at 00 01 CSTPrevious preliminary verified result was No growth a t 48 hours on 09/06/2021 at 00 01 CSTPrevious preliminary verified result was No growth a t 72 hours on 09/07/2021 at 00 01 CAMERA [employer]KER Blood No organisms No growth Previous Culture-Anaerobic isolated preliminar y (test code = 83169-0) verifi ed result was Culture In Progress on 09/04/2021 at 03 01 CSTPrevious preliminary verified result was No growth a t 24 hours on 09/05/2021 at 00 01 CSTPrevious preliminary verified result was No growth a t 48 hours on 09/06/2021 at 00 01 CSTPrevious preliminary verified result was No growth a t 72 hours on 09/07/2021 at 00 01 [employer]ERA [employer]KER Lab Interpretation Normal (test code = 49222-0) [facility] GLUCOSE (AUTOMATED)2021-09-09 03:41:10 Test Item Value Reference Range Interpretation Comments POCT GLU (test code = 9157835801) 196 mg/dL 70-110 H Lab Interpretation (test code = Abnormal 54543-0) [facility] GLUCOSE (AUTOMATED)2021-09-08 23:12:05 Test Item Value Reference Range Interpretation Comments POCT GLU (test code = 1538289935) 138 mg/dL 70-110 H Lab Interpretation (test code = Abnormal 48353-5) [facility] GLUCOSE (AUTOMATED)2021-09-08 17:46:12 Test Item Value Reference Range Interpretation Comments POCT GLU (test code = 4699582749) 181 mg/dL 70-110 H Lab Interpretation (test code = Abnormal 55185-0) [facility] GLUCOSE (AUTOMATED)2021-09-08 13:53:55 Test Item Value Reference Range Interpretation Comments POCT GLU (test code = 4541046034) 179 mg/dL 70-110 H Lab Interpretation (test code = Abnormal 08585-5) [facility] GLUCOSE (AUTOMATED)2021-09-08 03:04:37 Test Item Value Reference Range Interpretation Comments POCT GLU (test code = 0474787236) 241 mg/dL 70-110 H Lab Interpretation (test code = Abnormal 57639-0) [facility] GLUCOSE (AUTOMATED)2021-09-07 23:44:53 Test Item Value Reference Range Interpretation Comments POCT GLU (test code = 5583840112) 268 mg/dL 70-110 H Lab Interpretation (test code = Abnormal 49363-1) [facility] GLUCOSE (AUTOMATED)2021-09-07 19:18:14 Test Item Value Reference Range Interpretation Comments POCT GLU (test code = 8876976628) 208 mg/dL 70-110 H Lab Interpretation (test code = Abnormal 70340-4) [facility] Culture - Peripheral # [id number] 16:02:10 Test Item Value Reference Range Interpretation Comments Blood Culture-Aerobic No organisms No growth Previo us (test code = 89874-4) isolated prelim inary verified result was Culture In Progress on 09/02/2021 at 13 02 CSTPrevious preliminary verified result was No growth a t 24 hours on 09/03/2021 at 10 01 CSTPrevious preliminary verified result was No growth a t 48 hours on 09/04/2021 at 10 01 CSTPrevious preliminary verified result was No growth a t 72 hours on 09/05/2021 at 10 01 [employer] Blood No organisms No growth Previous Culture-Anaerobic isolated preliminar y (test code = 51440-7) verifi ed result was Culture In Progress on 09/02/2021 at 13 02 CSTPrevious preliminary verified result was No growth a t 24 hours on 09/03/2021 at 10 01 CSTPrevious preliminary verified result was No growth a t 48 hours on 09/04/2021 at 10 01 CSTPrevious preliminary verified result was No growth a t 72 hours on 09/05/2021 at 10 01 CAMERA [employer]KER Lab Interpretation Normal (test code = 43083-3) [facility] GLUCOSE (AUTOMATED)2021-09-07 15:05:58 Test Item Value Reference Range Interpretation Comments POCT GLU (test code = 7367171380) 158 mg/dL 70-110 H Lab Interpretation (test code = Abnormal 59741-5) [facility] METABOLIC PANEL (NA, K, CL, CO2, GLUCOSE, BUN, CREATININE, CA)2021-09-07 12:31:00 Test Item Value Reference Range Interpretation Comments NA (test code = 140 mmol/L 135-145 2218247814) K (test code = 4.9 mmol/L 3.5-5.0 5113455228) CL (test code = 113 mmol/L 98-108 H 6121601236) CO2 TOTAL (test code = 22 mmol/L 23-31 L 7978292927) AGAP (test code = 2-16 2638740121) BUN (test code = 51 mg/dL 7-23 H 2745172575) GLUCOSE (test code = 179 mg/dL 70-110 H 2941907823) CREATININE (test code = 2.98 mg/dL 0.60-1.25 H 9842822074) CALCIUM (test code = 9.0 mg/dL 8.6-10.6 0096742266) eGFR (test code = mL/min/1.73m2 0502463406) RADHA (test code = RADHA) Association of Glomerular Filtration Rate (GFR) and Staging of Kidney Disease* + --+ --+ ------+| GFR (mL/min/1.73 m2) ?| With Kidney Damage ?| ?Without Kidney Damage+ --------+ --------+ +| ?>90 ?| ?Stage one ?| ? Normal ?+ ---+ ---+ -------+| ?60-89 ?| ?Stage two ?| ? Decreased GFR ? + --+ --+ ------+| ?30-59 ?| ?Stage three ?| ? Stage three ? + --+ --+ ------+| ?15-29 ?| ?Stage four ? | ? Stage four ?+ ---+ ---+ -------+| ?<15 (or dialysis) ? ?| ?Stage five ? | ? Stage five ?+ ---+ ---+ -------+ *Each stage assumes the associated GFR level has been in effect for at least three months. ?Stages 1 to 5, with or without kidney disease, indicate chronic kidney disease. Notes: Determination of stages one and two (with eGFR >59mL/min/1.73 m2) requires estimation of kidney damage for at least three months as defined by structural or functional abnormalities of the kidney, manifested by either:Pathological abnormalities or Markers of kidney damage (including abnormalities in the composition of the blood or urine or abnormalities in imaging tests). Lab Interpretation Abnormal (test code = 26954-0) [facility] WITH [id number] 12:23:57 Test Item Value Reference Range Interpretation Comments WBC (test code = See_Comment [Automated 6690-2) message] The sy stem which generated this result transmitted reference range : 4.20 - 10.70 10*3/?L. The reference range was not used to interpret this result as normal/abnormal . RBC (test code = See_Comment L [Automated 789-8) message] The sy stem which generated this result transmitted reference range : 4.26 - 5.52 10*6/?L. The reference range was not used to interpret this result as normal/abnormal . HGB (test code = 8.7 g/dL 12.2-16.4 L 718-7) HCT (test code = 28.9 % 38.4-49.3 L 4544-3) MCV (test code = 94.8 fL 81.7-95.6 787-2) MCH (test code = 28.5 pg 26.1-32.7 785-6) MCHC (test code = 30.1 g/dL 31.2-35.0 L 786-4) RDW-SD (test code = 51.8 fL 38.5-51.6 H 06194-8) RDW-CV (test code = 14.9 % 12.1-15.4 788-0) PLT (test code = See_Comment [Automated 777-3) message] The sy stem which generated this result transmitted reference range : 150 - 328 10*3/ ?L. The reference r hilary was not used to interpret this result as normal/abnormal . MPV (test code = 10.1 fL 9.8-13.0 25131-5) NRBC/100 WBC (test See_Comment [Automat ed code = 6725210576) message] The system which generated this result transmitted reference range : 0.0 - 10.0 /100 WBCs. The refer ence range was not u sed to interpret th is result as normal/abnormal . NRBC x10^3 (test code <0.01 See_Comment [Auto mated = 9147203811) message] The s ystem which generated this result transmitted reference range : 10*3/?L. The reference range was not used to interpret this result as normal/abnormal . GRAN MAT (NEUT) % 88.6 % (test code = 770-8) IMM GRAN % (test code 0.40 % = 2573052287) LYMPH % (test code = 7.1 % 736-9) MONO % (test code = 3.8 % 5905-5) EOS % (test code = 0.0 % 713-8) BASO % (test code = 0.1 % 706-2) GRAN MAT x10^3(ANC) 6.02 10*3/uL 1.99-6.95 (test code = 9551183519) IMM GRAN x10^3 (test 0.03 10*3/uL 0.00-0.06 code = 4499986592) LYMPH x10^3 (test code 0.48 10*3/uL 1.09-3.23 L = 731-0) MONO x10^3 (test code 0.26 10*3/uL 0.36-1.02 L = 742-7) EOS x10^3 (test code = <0.03 0.06-0.53 L 711-2) BASO x10^3 (test code <0.03 0.01-0.09 = 704-7) Lab Interpretation Abnormal (test code = 92981-0) [facility] GLUCOSE (AUTOMATED)2021-09-07 03:05:46 Test Item Value Reference Range Interpretation Comments POCT GLU (test code = 1583942189) 235 mg/dL 70-110 H Lab Interpretation (test code = Abnormal 66432-5) [facility] GLUCOSE (AUTOMATED)2021-09-07 01:42:32 Test Item Value Reference Range Interpretation Comments POCT GLU (test code = 1716231361) 291 mg/dL 70-110 H Lab Interpretation (test code = Abnormal 41654-5) [facility] GLUCOSE (AUTOMATED)2021-09-06 22:58:03 Test Item Value Reference Range Interpretation Comments POCT GLU (test code = 2398901455) 291 mg/dL 70-110 H Lab Interpretation (test code = Abnormal 81347-8) [facility] GLUCOSE (AUTOMATED)2021-09-06 17:52:21 Test Item Value Reference Range Interpretation Comments POCT GLU (test code = 2872062364) 185 mg/dL 70-110 H Lab Interpretation (test code = Abnormal 36960-3) [facility] 14:03:24 Test Item Value Reference Range Interpretation Comments POCT GLU (test code = 7724719547) 131 mg/dL 70-110 H Lab Interpretation (test code = Abnormal 59945-1) [facility] WITH [id number] 09:20:33 Test Item Value Reference Range Interpretation Comments WBC (test code = See_Comment [Automated 6690-2) message] The sy stem which generated this result transmitted reference range : 4.20 - 10.70 10*3/?L. The reference range was not used to interpret this result as normal/abnormal . RBC (test code = See_Comment L [Automated 789-8) message] The sy stem which generated this result transmitted reference range : 4.26 - 5.52 10*6/?L. The reference range was not used to interpret this result as normal/abnormal . HGB (test code = 8.8 g/dL 12.2-16.4 L 718-7) HCT (test code = 29.2 % 38.4-49.3 L 4544-3) MCV (test code = 95.7 fL 81.7-95.6 H 787-2) MCH (test code = 28.9 pg 26.1-32.7 785-6) MCHC (test code = 30.1 g/dL 31.2-35.0 L 786-4) RDW-SD (test code = 53.1 fL 38.5-51.6 H 21039-4) RDW-CV (test code = 15.1 % 12.1-15.4 788-0) PLT (test code = See_Comment [Automated 777-3) message] The sy stem which generated this result transmitted reference range : 150 - 328 10*3/ ?L. The reference r hilary was not used to interpret this result as normal/abnormal . MPV (test code = 10.0 fL 9.8-13.0 21387-5) NRBC/100 WBC (test See_Comment [Automat ed code = 6128003863) message] The system which generated this result transmitted reference range : 0.0 - 10.0 /100 WBCs. The refer ence range was not u sed to interpret th is result as normal/abnormal . NRBC x10^3 (test code <0.01 See_Comment [Auto mated = 9951346038) message] The s ystem which generated this result transmitted reference range : 10*3/?L. The reference range was not used to interpret this result as normal/abnormal . GRAN MAT (NEUT) % 85.6 % (test code = 770-8) IMM GRAN % (test code 0.70 % = 2118521184) LYMPH % (test code = 8.9 % 736-9) MONO % (test code = 4.7 % 5905-5) EOS % (test code = 0.0 % 713-8) BASO % (test code = 0.1 % 706-2) GRAN MAT x10^3(ANC) 6.55 10*3/uL 1.99-6.95 (test code = 2686502386) IMM GRAN x10^3 (test 0.05 10*3/uL 0.00-0.06 code = 4483406087) LYMPH x10^3 (test code 0.68 10*3/uL 1.09-3.23 L = 731-0) MONO x10^3 (test code 0.36 10*3/uL 0.36-1.02 = 742-7) EOS x10^3 (test code = <0.03 0.06-0.53 L 711-2) BASO x10^3 (test code <0.03 0.01-0.09 = 704-7) Lab Interpretation Abnormal (test code = 37709-3) [id number]:14[facility]11 Test Item Value Reference Interpretation Comments Range TROPONIN I (test 0.061 ng/mL See_Comment H [Automated code = 8752791407) message] The system which generated this result transmitted reference range : <=0.034. The reference range was not used to interpret this result as normal/abnormal . RADHA (test code = Reference (Normal) RADHA) Range (defined by the 99th percentile reference limit): <= 0.034 ng/mL Note: Cardiac troponin begins to rise 3-4 hours after the onset of ischemia. Repeat in 4-6 hours if the sample was drawn within 3-4 hours of the onset of the symptom and found normal. Diagnosis of myocardial injury is made with acute changes in cTn concentrations with at least one serial sample above the 99th percentile upper reference limit (URL), taken together with the patient's clinical presentation. Biotin has been reported to cause a negative bias, interpret results relative to patient's use of biotin. Lab Interpretation Abnormal (test code = 07523-5) [facility] 09:02:46 Test Item Value Reference Range Interpretation Comments MAGNESIUM (test code = 0513764407) 2.0 mg/dL 1.7-2.4 Lab Interpretation (test code = Normal 81417-1) [facility] (NA, K, CL, CO2, GLUCOSE, BUN, CREATININE, CA)2021-09-06 09:02:26 Test Item Value Reference Range Interpretation Comments NA (test code = 138 mmol/L 135-145 3177491070) K (test code = 5.2 mmol/L 3.5-5.0 H 5232331514) CL (test code = 112 mmol/L 98-108 H 4061755458) CO2 TOTAL (test code = 21 mmol/L 23-31 L 6707440855) AGAP (test code = 2-16 5457027722) BUN (test code = 51 mg/dL 7-23 H 0790369763) GLUCOSE (test code = 137 mg/dL 70-110 H 9391118301) CREATININE (test code = 3.15 mg/dL 0.60-1.25 H 1212931624) CALCIUM (test code = 9.1 mg/dL 8.6-10.6 1320896743) eGFR (test code = mL/min/1.73m2 7654890432) RADHA (test code = RADHA) Association of Glomerular Filtration Rate (GFR) and Staging of Kidney Disease* + --+ --+ ------+| GFR (mL/min/1.73 m2) ?| With Kidney Damage ?| ?Without Kidney Damage+ --------+ --------+ +| ?>90 ?| ?Stage one ?| ? Normal ?+ ---+ ---+ -------+| ?60-89 ?| ?Stage two ?| ? Decreased GFR ? + --+ --+ ------+| ?30-59 ?| ?Stage three ?| ? Stage three ? + --+ --+ ------+| ?15-29 ?| ?Stage four ? | ? Stage four ?+ ---+ ---+ -------+| ?<15 (or dialysis) ? ?| ?Stage five ? | ? Stage five ?+ ---+ ---+ -------+ *Each stage assumes the associated GFR level has been in effect for at least three months. ?Stages 1 to 5, with or without kidney disease, indicate chronic kidney disease. Notes: Determination of stages one and two (with eGFR >59mL/min/1.73 m2) requires estimation of kidney damage for at least three months as defined by structural or functional abnormalities of the kidney, manifested by either:Pathological abnormalities or Markers of kidney damage (including abnormalities in the composition of the blood or urine or abnormalities in imaging tests). Lab Interpretation Abnormal (test code = 21863-3) [facility] 09:02:26 Test Item Value Reference Range Interpretation Comments PHOSPHORUS (test code = 9904102135) 3.4 mg/dL 2.5-5.0 Lab Interpretation (test code = Normal 66812-1) [facility] GLUCOSE (AUTOMATED)2021-09-06 02:58:54 Test Item Value Reference Range Interpretation Comments POCT GLU (test code = 2322250197) 229 mg/dL 70-110 H Lab Interpretation (test code = Abnormal 21493-0) [facility] Random [id number] 23:36:47 Test Item Value Reference Range Interpretation Comments VANCO RANDOM (test code = 7.6 ug/mL 7291925222) [facility] GLUCOSE (AUTOMATED)2021-09-05 22:23:59 Test Item Value Reference Range Interpretation Comments POCT GLU (test code = 6027032295) 307 mg/dL 70-110 H Lab Interpretation (test code = Abnormal 09647-3) [facility] GLUCOSE (AUTOMATED)2021-09-05 17:43:53 Test Item Value Reference Range Interpretation Comments POCT GLU (test code = 0924255074) 133 mg/dL 70-110 H Lab Interpretation (test code = Abnormal 95763-6) [facility] [id number] 17:02:17 Test Item Value Reference Range Interpretation Comments NT-proBNP (test code 4570 pg/mL See_Comment H [Autom ated = 5875124167) message] The system which generated this result transmitted reference range : <=450. The reference range was not used to interpret this result as normal/abnormal . RADHA (test code = RADHA) Biotin has been reported to cause a negative bias, interpret results relative to patient's use of biotin. Lab Interpretation Abnormal (test code = 40151-9) [facility] (NA, K, CL, CO2, GLUCOSE, BUN, CREATININE, CA)2021-09-05 16:53:35 Test Item Value Reference Range Interpretation Comments NA (test code = 138 mmol/L 135-145 6745007628) K (test code = 4.8 mmol/L 3.5-5.0 8733452533) CL (test code = 110 mmol/L 98-108 H 7632243546) CO2 TOTAL (test code = 23 mmol/L 23-31 5060017266) AGAP (test code = 2-16 4714175270) BUN (test code = 50 mg/dL 7-23 H 2929531025) GLUCOSE (test code = 106 mg/dL 70-110 4366936165) CREATININE (test code = 3.36 mg/dL 0.60-1.25 H 0100526754) CALCIUM (test code = 8.9 mg/dL 8.6-10.6 1370620359) eGFR (test code = mL/min/1.73m2 2112472939) RADHA (test code = RADHA) Association of Glomerular Filtration Rate (GFR) and Staging of Kidney Disease* + --+ --+ ------+| GFR (mL/min/1.73 m2) ?| With Kidney Damage ?| ?Without Kidney Damage+ --------+ --------+ +| ?>90 ?| ?Stage one ?| ? Normal ?+ ---+ ---+ -------+| ?60-89 ?| ?Stage two ?| ? Decreased GFR ? + --+ --+ ------+| ?30-59 ?| ?Stage three ?| ? Stage three ? + --+ --+ ------+| ?15-29 ?| ?Stage four ? | ? Stage four ?+ ---+ ---+ -------+| ?<15 (or dialysis) ? ?| ?Stage five ? | ? Stage five ?+ ---+ ---+ -------+ *Each stage assumes the associated GFR level has been in effect for at least three months. ?Stages 1 to 5, with or without kidney disease, indicate chronic kidney disease. Notes: Determination of stages one and two (with eGFR >59mL/min/1.73 m2) requires estimation of kidney damage for at least three months as defined by structural or functional abnormalities of the kidney, manifested by either:Pathological abnormalities or Markers of kidney damage (including abnormalities in the composition of the blood or urine or abnormalities in imaging tests). Lab Interpretation Abnormal (test code = 35054-4) [facility] Culture - Peripheral # 15:16:24 Test Item Value Reference Range Interpretation Comments Blood Culture-Aerobic No organisms No growth Previo us (test code = 92422-9) isolated prelim inary verified result was Culture In Progress on 09/02/2021 at 13 02 CSTPrevious preliminary verified result was No growth a t 24 hours on 09/03/2021 at 22 13 [employer]ER[employer] Blood Culture positive. No growth AA Previous Culture-Anaerobic See Blood preliminar y (test code = 72884-8) Culture Workup veri fied result for additional was Culture I n information. Progress on 09/02/2021 at 13 02 CSTPrevious preliminary verified result was No growth a t 24 hours on 09/03/2021 at 10 01 CAMER[employer]KER Lab Interpretation Abnormal (test code = 52918-8) [facility] GLUCOSE (AUTOMATED)2021-09-05 13:47:13 Test Item Value Reference Range Interpretation Comments POCT GLU (test code = 4226508968) 116 mg/dL 70-110 H Lab Interpretation (test code = Abnormal 36887-5) [facility] GLUCOSE (AUTOMATED)2021-09-05 02:37:48 Test Item Value Reference Range Interpretation Comments POCT GLU (test code = 7735631542) 238 mg/dL 70-110 H Lab Interpretation (test code = Abnormal 61709-1) [facility]21-[facility]-04 23:23:12 Test Item Value Reference Range Interpretation Comments POCT GLU (test code = 6859474911) 211 mg/dL 70-110 H Lab Interpretation (test code = Abnormal 42451-3) [facility]2022-01-25 18:15:57 Test Item Value Reference Range Interpretation Comments Procalcitonin (test 0.11 ng/mL <0.07 H code = 7216414530) RADHA (test code = RADHA) INTERPRETATION OF PROCALCITONIN RESULTS IN ADULTS >= 18 YEARS OF AGE Initiation and discontinuation of antibiotics on patients with suspected or confirmed Lower Respiratory Tract Infection in Adults >= 18 years of age. + +-------- --------+ + -----+|Procalcitonin |Interpretation ?|Antibiotic ? ? |Considerations ? |ng/mL ? | ?|recommendation | ? + +-------- --------+ + -----+| <0.1 ? | Bacterial ? ? ?| Strongly ? ? ?| ? | ?| infection very | discouraged ? | Overruling: ? | ?| unlikely ? ? ? | ? | ? Clinically unstable ? ? ? + +-------- --------+ + ? High risk for adverse ? ? | <0.25 ?| Bacterial ? ? ?| Discouraged ? | ? outcome ? | ?| infection ? ? ?| ? | ? SEE IMPORTANT NOTE ?| ?| unlikely ? ? ? | ? | ? + +-------- --------+ + -----+| >=0.25 ? ? ? | Bacterial ? ? ?| Encouraged ? ?| ? | ?| infection ? ? ?| ? | ? | ?| likely ? | ? | Consider treatment failure ?+ +------- ---------+ -+ if levels does not decrease | >0.5 ? | Bacterial ? ? ?| Strongly ? ? ?| appropriately ? | ?| infection very | encouraged ? ?| ? | ?| likely ? | ? | ? + +-------- --------+ + -----+ Discontinuation of antibiotics in high-acuity patients with suspected or confirmed sepsis in Adults >= 18 years of age. + +-------- --------+ + -----+|Procalcitonin |Interpretation ?|Antibiotic ? ? |Considerations ? |ng/mL ? | ?|recommendation | ? + +-------- --------+ + -----+| <0.25 ?| Bacterial ? ? ?| Strongly ? ? ?| ? | ?| infection very | discouraged ? | Overruling: ? | ?| unlikely ? ? ? | ? | ? Clinically unstable ? ? ? + +-------- --------+ + ? High risk for adverse ? ? | <0.5 or drop | Bacterial ? ? ?| Discouraged ? | ? outcome ? | >80% from ? ?| infection ? ? ?| ? | ? SEE IMPORTANT NOTE ?| highest PCT ?| unlikely ? ? ? | ? | ? | level ?| ?| ? | ? + +-------- --------+ + -----+| >=0.5 ?| Bacterial ? ? ?| Encouraged ? ?| ? | ?| infection ? ? ?| ? | ? | ?| likely ? | ? | Consider treatment failure ?+ +------- ---------+ -+ if levels does not decrease | >1.0 ? | Bacterial ? ? ?| Strongly ? ? ?| appropriately ? | ?| infection very | encouraged ? ?| ? | ?| likely ? | ? | ? + +-------- --------+ + -----+ Percentage of drop of Procalcitonin calculation for Discontinuation of antibiotics in high-acuity patients with suspected or confirmed sepsis in Adults >= 18 years of age. ? Procalcitonin highest{}-Procalcitonin current{}Delta Procalcitonin = x100% ? Procalcitonin current {} IMPORTANT NOTE: Procalcitonin may be elevated without bacterial infection by physiologic stress related to trauma, rivers, chronic dialysis, metastatic cancer, surgery in the past seven days, malaria, some fungal infections, and some forms of vasculitis. The interpretation algorithm may not apply to patients with immunosuppression (equivalent of >10 mg of prednisone daily), HIV with CD4 cell count < 350 cells/mm3, active malignancy on systemic chemotherapy, solid organ transplant or hematopoietic stem cell transplantation, or hospital acquired pneumonia. Additionally, some clinical trials of procalcitonin have excluded patients with shock requiring vasopressor use, acute respiratory failure requiring mechanical ventilation, or those with known lung abscess/empyema. For further information please refer to:[email or web address] Lab Interpretation Abnormal (test code = 60936-6) [facility] GLUCOSE (AUTOMATED)2021-09-04 17:52:04 Test Item Value Reference Range Interpretation Comments POCT GLU (test code = 6002100929) 182 mg/dL 70-110 H Lab Interpretation (test code = Abnormal 61616-9) [facility] GLUCOSE (AUTOMATED)2021-09-04 13:47:06 Test Item Value Reference Range Interpretation Comments POCT GLU (test code = 5954947025) 170 mg/dL 70-110 H Lab Interpretation (test code = Abnormal 61816-8) [facility] [id number] 12:23:39 Test Item Value Reference Interpretation Comments Range TROPONIN I (test 0.046 ng/mL See_Comment H [Automated code = 4123653637) message] The system which generated this result transmitted reference range : <=0.034. The reference range was not used to interpret this result as normal/abnormal . RADHA (test code = Reference (Normal) RADHA) Range (defined by the 99th percentile reference limit): <= 0.034 ng/mL Note: Cardiac troponin begins to rise 3-4 hours after the onset of ischemia. Repeat in 4-6 hours if the sample was drawn within 3-4 hours of the onset of the symptom and found normal. Diagnosis of myocardial injury is made with acute changes in cTn concentrations with at least one serial sample above the 99th percentile upper reference limit (URL), taken together with the patient's clinical presentation. Biotin has been reported to cause a negative bias, interpret results relative to patient's use of biotin. Lab Interpretation Abnormal (test code = 12878-0) [facility] [id number] 12:20:23 Test Item Value Reference Range Interpretation Comments NT-proBNP (test code 6500 pg/mL See_Comment H [Autom ated = 0035156889) message] The system which generated this result transmitted reference range : <=450. The reference range was not used to interpret this result as normal/abnormal . RADHA (test code = RADHA) Biotin has been reported to cause a negative bias, interpret results relative to patient's use of biotin. Lab Interpretation Abnormal (test code = 81070-7) [facility] (NA, K, CL, CO2, GLUCOSE, BUN, CREATININE, CA)2021-09-04 12:12:37 Test Item Value Reference Range Interpretation Comments NA (test code = 137 mmol/L 135-145 2405295777) K (test code = 5.0 mmol/L 3.5-5.0 7324987576) CL (test code = 109 mmol/L 98-108 H 7466933553) CO2 TOTAL (test code = 21 mmol/L 23-31 L 0325308992) AGAP (test code = 2-16 5223841949) BUN (test code = 47 mg/dL 7-23 H 2762481480) GLUCOSE (test code = 192 mg/dL 70-110 H 9845676585) CREATININE (test code = 3.30 mg/dL 0.60-1.25 H 0072817236) CALCIUM (test code = 8.6 mg/dL 8.6-10.6 5922041560) eGFR (test code = mL/min/1.73m2 5602387106) RADHA (test code = RADHA) Association of Glomerular Filtration Rate (GFR) and Staging of Kidney Disease* + --+ --+ ------+| GFR (mL/min/1.73 m2) ?| With Kidney Damage ?| ?Without Kidney Damage+ --------+ --------+ +| ?>90 ?| ?Stage one ?| ? Normal ?+ ---+ ---+ -------+| ?60-89 ?| ?Stage two ?| ? Decreased GFR ? + --+ --+ ------+| ?30-59 ?| ?Stage three ?| ? Stage three ? + --+ --+ ------+| ?15-29 ?| ?Stage four ? | ? Stage four ?+ ---+ ---+ -------+| ?<15 (or dialysis) ? ?| ?Stage five ? | ? Stage five ?+ ---+ ---+ -------+ *Each stage assumes the associated GFR level has been in effect for at least three months. ?Stages 1 to 5, with or without kidney disease, indicate chronic kidney disease. Notes: Determination of stages one and two (with eGFR >59mL/min/1.73 m2) requires estimation of kidney damage for at least three months as defined by structural or functional abnormalities of the kidney, manifested by either:Pathological abnormalities or Markers of kidney damage (including abnormalities in the composition of the blood or urine or abnormalities in imaging tests). Lab Interpretation Abnormal (test code = 08015-0) [facility] WITH [id number] 12:02:38 Test Item Value Reference Range Interpretation Comments WBC (test code = See_Comment H [Automated 4390-2) message] The system which generated this result transmit jose reference range : 4.20 - 10.70 10*3/?L. The reference range was not used to interpret this result as normal/abnormal . RBC (test code = See_Comment L [Automated 289-8) message] The system which generated this result transmit jose reference range : 4.26 - 5.52 10*6/?L. The reference range was not used to interpret this result as normal/abnormal . HGB (test code = 8.2 g/dL 12.2-16.4 L 718-7) HCT (test code = 27.3 % 38.4-49.3 L 4544-3) MCV (test code = 94.8 fL 81.7-95.6 787-2) MCH (test code = 28.5 pg 26.1-32.7 785-6) MCHC (test code = 30.0 g/dL 31.2-35.0 L 786-4) RDW-SD (test code = 53.5 fL 38.5-51.6 H 09275-8) RDW-CV (test code = 15.4 % 12.1-15.4 788-0) PLT (test code = See_Comment [Automated 777-3) message] The system which generated this result transmit jose reference range : 150 - 328 10*3/ ?L. The reference range was not u sed to interpret th is result as normal/abnormal . MPV (test code = 10.5 fL 9.8-13.0 10398-4) NRBC/100 WBC (test See_Comment [Automat ed code = 7736429624) message] The system which generated this result transmit jose reference range : 0.0 - 10.0 /100 WBCs. The reference range was not used to interpret this result as normal/abnormal . NRBC x10^3 (test code <0.01 See_Comment [Auto mated = 6243718773) message] The system which generated this result transmit jose reference range : 10*3/?L. The reference range was not used to interpret this result as normal/abnormal . GRAN MAT (NEUT) % 90.0 % (test code = 770-8) IMM GRAN % (test code 0.60 % = 5016810660) LYMPH % (test code = 5.0 % 736-9) MONO % (test code = 4.3 % 5905-5) EOS % (test code = 0.0 % 713-8) BASO % (test code = 0.1 % 706-2) GRAN MAT x10^3(ANC) 10.53 10*3/uL 1.99-6.95 H (test code = 4363321688) IMM GRAN x10^3 (test 0.07 10*3/uL 0.00-0.06 H code = 2822624932) LYMPH x10^3 (test code 0.58 10*3/uL 1.09-3.23 L = 731-0) MONO x10^3 (test code 0.50 10*3/uL 0.36-1.02 = 742-7) EOS x10^3 (test code = <0.03 0.06-0.53 L 711-2) BASO x10^3 (test code <0.03 0.01-0.09 = 704-7) Lab Interpretation Abnormal (test code = 88048-3) [facility] GLUCOSE (AUTOMATED)2021-09-04 11:55:48 Test Item Value Reference Range Interpretation Comments POCT GLU (test code = 9002003846) 189 mg/dL 70-110 H Lab Interpretation (test code = Abnormal 22256-1) [facility] GLUCOSE (AUTOMATED)2021-09-04 01:41:45 Test Item Value Reference Range Interpretation Comments POCT GLU (test code = 6941475653) 166 mg/dL 70-110 H Lab Interpretation (test code = Abnormal 15612-5) [facility], [id number] 23:08:05 Test Item Value Reference Range Interpretation Comments VIT B12 (test code = >1000 240-930 H 7578785815) RADHA (test code = RADHA) Biotin has been reported to cause a positive bias, interpret results relative to patient's use of biotin. Lab Interpretation (test Abnormal code = 29705-8) [facility] GLUCOSE (AUTOMATED)2021-09-03 22:54:51 Test Item Value Reference Range Interpretation Comments POCT GLU (test code = 7785577658) 229 mg/dL 70-110 H Lab Interpretation (test code = Abnormal 64824-6) [facility] [id number] 17:34:51 Test Item Value Reference Range Interpretation Comments FREE T3 (test code = 7670275603) 2.41 pg/mL 2.77-5.27 L Lab Interpretation (test code = Abnormal 70727-2) [facility] GLUCOSE (AUTOMATED)2021-09-03 17:31:09 Test Item Value Reference Range Interpretation Comments POCT GLU (test code = 6114078822) 246 mg/dL 70-110 H Lab Interpretation (test code = Abnormal 26189-3) [facility] [id number] 17:00:47 Test Item Value Reference Range Interpretation Comments FREE T4 (test code = See_Comment [Autom ated message] 0229612295) The system whic h generated this result transmitted ref erence range: 0.78 - 2 .20 ng/dL:. The ref erence range was not u sed to interpret this result as normal/abnor mal. Lab Interpretation (test Normal code = 45525-9) [facility]2021-09-03 14:17:24 Test Item Value Reference Range Interpretation Comments POCT GLU (test code = 1799794633) 232 mg/dL 70-110 H Lab Interpretation (test code = Abnormal 26687-6) [facility] [id number] 11:01:15 Test Item Value Reference Interpretation Comments Range TROPONIN I (test 0.035 ng/mL See_Comment H [Automated code = 1021019347) message] The system which generated this result transmitted reference range : <=0.034. The reference range was not used to interpret this result as normal/abnormal . RADHA (test code = Reference (Normal) RADHA) Range (defined by the 99th percentile reference limit): <= 0.034 ng/mL Note: Cardiac troponin begins to rise 3-4 hours after the onset of ischemia. Repeat in 4-6 hours if the sample was drawn within 3-4 hours of the onset of the symptom and found normal. Diagnosis of myocardial injury is made with acute changes in cTn concentrations with at least one serial sample above the 99th percentile upper reference limit (URL), taken together with the patient's clinical presentation. Biotin has been reported to cause a negative bias, interpret results relative to patient's use of biotin. Lab Interpretation Abnormal (test code = 19786-2) [facility] [id number] 10:58:19 Test Item Value Reference Range Interpretation Comments NT-proBNP (test code 3920 pg/mL See_Comment H [Autom ated = 5905805385) message] The system which generated this result transmitted reference range : <=450. The reference range was not used to interpret this result as normal/abnormal . RADHA (test code = RADHA) Biotin has been reported to cause a negative bias, interpret results relative to patient's use of biotin. Lab Interpretation Abnormal (test code = 40548-8) [facility] [id number] 10:50:15 Test Item Value Reference Range Interpretation Comments MAGNESIUM (test code = 9222666155) 2.1 mg/dL 1.7-2.4 Lab Interpretation (test code = Normal 75274-5) [facility] Metabolic Panel (NA, K, CL, CO2, GLUCOSE, BUN, CREATININE, CA)2021-09-03 10:49:54 Test Item Value Reference Range Interpretation Comments NA (test code = 140 mmol/L 135-145 5235680838) K (test code = 5.0 mmol/L 3.5-5.0 2572962817) CL (test code = 112 mmol/L 98-108 H 7354949348) CO2 TOTAL (test code = 21 mmol/L 23-31 L 1907093593) AGAP (test code = 2-16 0183555705) BUN (test code = 41 mg/dL 7-23 H 7860215413) GLUCOSE (test code = 205 mg/dL 70-110 H 0364414801) CREATININE (test code = 2.95 mg/dL 0.60-1.25 H 5202928683) CALCIUM (test code = 8.6 mg/dL 8.6-10.6 7562057843) eGFR (test code = mL/min/1.73m2 8855659199) RADHA (test code = RADHA) Association of Glomerular Filtration Rate (GFR) and Staging of Kidney Disease* + --+ --+ ------+| GFR (mL/min/1.73 m2) ?| With Kidney Damage ?| ?Without Kidney Damage+ --------+ --------+ +| ?>90 ?| ?Stage one ?| ? Normal ?+ ---+ ---+ -------+| ?60-89 ?| ?Stage two ?| ? Decreased GFR ? + --+ --+ ------+| ?30-59 ?| ?Stage three ?| ? Stage three ? + --+ --+ ------+| ?15-29 ?| ?Stage four ? | ? Stage four ?+ ---+ ---+ -------+| ?<15 (or dialysis) ? ?| ?Stage five ? | ? Stage five ?+ ---+ ---+ -------+ *Each stage assumes the associated GFR level has been in effect for at least three months. ?Stages 1 to 5, with or without kidney disease, indicate chronic kidney disease. Notes: Determination of stages one and two (with eGFR >59mL/min/1.73 m2) requires estimation of kidney damage for at least three months as defined by structural or functional abnormalities of the kidney, manifested by either:Pathological abnormalities or Markers of kidney damage (including abnormalities in the composition of the blood or urine or abnormalities in imaging tests). Lab Interpretation Abnormal (test code = 01291-9) [facility] [id number] 10:49:54 Test Item Value Reference Range Interpretation Comments URIC ACID (test code = 0736852901) 5.1 mg/dL 3.6-8.0 Lab Interpretation (test code = Normal 84434-6) [facility] with [id number] 10:06:10 Test Item Value Reference Range Interpretation Comments WBC (test code = See_Comment [Automated 6690-2) message] The sy stem which generated this result transmitted reference range : 4.20 - 10.70 10*3/?L. The reference range was not used to interpret this result as normal/abnormal . RBC (test code = See_Comment L [Automated 789-8) message] The sy stem which generated this result transmitted reference range : 4.26 - 5.52 10*6/?L. The reference range was not used to interpret this result as normal/abnormal . HGB (test code = 8.7 g/dL 12.2-16.4 L 718-7) HCT (test code = 28.8 % 38.4-49.3 L 4544-3) MCV (test code = 96.0 fL 81.7-95.6 H 787-2) MCH (test code = 29.0 pg 26.1-32.7 785-6) MCHC (test code = 30.2 g/dL 31.2-35.0 L 786-4) RDW-SD (test code = 53.0 fL 38.5-51.6 H 75613-8) RDW-CV (test code = 15.2 % 12.1-15.4 788-0) PLT (test code = See_Comment [Automated 777-3) message] The sy stem which generated this result transmitted reference range : 150 - 328 10*3/ ?L. The reference r hilary was not used to interpret this result as normal/abnormal . MPV (test code = 10.1 fL 9.8-13.0 46182-9) NRBC/100 WBC (test See_Comment [Automat ed code = 6700261408) message] The system which generated this result transmitted reference range : 0.0 - 10.0 /100 WBCs. The refer ence range was not u sed to interpret th is result as normal/abnormal . NRBC x10^3 (test code <0.01 See_Comment [Auto mated = 6523664216) message] The s ystem which generated this result transmitted reference range : 10*3/?L. The reference range was not used to interpret this result as normal/abnormal . GRAN MAT (NEUT) % 94.4 % (test code = 770-8) IMM GRAN % (test code 0.50 % = 3012951590) LYMPH % (test code = 4.2 % 736-9) MONO % (test code = 0.9 % 5905-5) EOS % (test code = 0.0 % 713-8) BASO % (test code = 0.0 % 706-2) GRAN MAT x10^3(ANC) 5.20 10*3/uL 1.99-6.95 (test code = 9115172290) IMM GRAN x10^3 (test 0.03 10*3/uL 0.00-0.06 code = 7348228423) LYMPH x10^3 (test code 0.23 10*3/uL 1.09-3.23 L = 731-0) MONO x10^3 (test code 0.05 10*3/uL 0.36-1.02 L = 742-7) EOS x10^3 (test code = <0.03 0.06-0.53 L 711-2) BASO x10^3 (test code <0.03 0.01-0.09 = 704-7) Lab Interpretation Abnormal (test code = 63641-0) [facility] [id number] 07:55:03 Test Item Value Reference Range Interpretation Comments URIC ACID (test code = 6425476400) 5.3 mg/dL 3.6-8.0 Lab Interpretation (test code = Normal 04098-0) [facility]ALCITONIN2022-01-24 07:43:46 Test Item Value Reference Range Interpretation Comments Procalcitonin (test 0.12 ng/mL <0.07 H code = 6863838114) RADHA (test code = RADHA) INTERPRETATION OF PROCALCITONIN RESULTS IN ADULTS >= 18 YEARS OF AGE Initiation and discontinuation of antibiotics on patients with suspected or confirmed Lower Respiratory Tract Infection in Adults >= 18 years of age. + +-------- --------+ + -----+|Procalcitonin |Interpretation ?|Antibiotic ? ? |Considerations ? |ng/mL ? | ?|recommendation | ? + +-------- --------+ + -----+| <0.1 ? | Bacterial ? ? ?| Strongly ? ? ?| ? | ?| infection very | discouraged ? | Overruling: ? | ?| unlikely ? ? ? | ? | ? Clinically unstable ? ? ? + +-------- --------+ + ? High risk for adverse ? ? | <0.25 ?| Bacterial ? ? ?| Discouraged ? | ? outcome ? | ?| infection ? ? ?| ? | ? SEE IMPORTANT NOTE ?| ?| unlikely ? ? ? | ? | ? + +-------- --------+ + -----+| >=0.25 ? ? ? | Bacterial ? ? ?| Encouraged ? ?| ? | ?| infection ? ? ?| ? | ? | ?| likely ? | ? | Consider treatment failure ?+ +------- ---------+ -+ if levels does not decrease | >0.5 ? | Bacterial ? ? ?| Strongly ? ? ?| appropriately ? | ?| infection very | encouraged ? ?| ? | ?| likely ? | ? | ? + +-------- --------+ + -----+ Discontinuation of antibiotics in high-acuity patients with suspected or confirmed sepsis in Adults >= 18 years of age. + +-------- --------+ + -----+|Procalcitonin |Interpretation ?|Antibiotic ? ? |Considerations ? |ng/mL ? | ?|recommendation | ? + +-------- --------+ + -----+| <0.25 ?| Bacterial ? ? ?| Strongly ? ? ?| ? | ?| infection very | discouraged ? | Overruling: ? | ?| unlikely ? ? ? | ? | ? Clinically unstable ? ? ? + +-------- --------+ + ? High risk for adverse ? ? | <0.5 or drop | Bacterial ? ? ?| Discouraged ? | ? outcome ? | >80% from ? ?| infection ? ? ?| ? | ? SEE IMPORTANT NOTE ?| highest PCT ?| unlikely ? ? ? | ? | ? | level ?| ?| ? | ? + +-------- --------+ + -----+| >=0.5 ?| Bacterial ? ? ?| Encouraged ? ?| ? | ?| infection ? ? ?| ? | ? | ?| likely ? | ? | Consider treatment failure ?+ +------- ---------+ -+ if levels does not decrease | >1.0 ? | Bacterial ? ? ?| Strongly ? ? ?| appropriately ? | ?| infection very | encouraged ? ?| ? | ?| likely ? | ? | ? + +-------- --------+ + -----+ Percentage of drop of Procalcitonin calculation for Discontinuation of antibiotics in high-acuity patients with suspected or confirmed sepsis in Adults >= 18 years of age. ? Procalcitonin highest{}-Procalcitonin current{}Delta Procalcitonin = x100% ? Procalcitonin current {} IMPORTANT NOTE: Procalcitonin may be elevated without bacterial infection by physiologic stress related to trauma, rivers, chronic dialysis, metastatic cancer, surgery in the past seven days, malaria, some fungal infections, and some forms of vasculitis. The interpretation algorithm may not apply to patients with immunosuppression (equivalent of >10 mg of prednisone daily), HIV with CD4 cell count < 350 cells/mm3, active malignancy on systemic chemotherapy, solid organ transplant or hematopoietic stem cell transplantation, or hospital acquired pneumonia. Additionally, some clinical trials of procalcitonin have excluded patients with shock requiring vasopressor use, acute respiratory failure requiring mechanical ventilation, or those with known lung abscess/empyema. For further information please refer to:[email or web address] Lab Interpretation Abnormal (test code = 70559-6) [facility] [id number] 03:12:06 Test Item Value Reference Interpretation Comments Range TROPONIN I (test 0.029 ng/mL See_Comment [Automated code = 9343120347) message] The system which generated this result transmitted reference range : <=0.034. The reference range was not used to interpret this result as normal/abnormal . RADHA (test code = Reference (Normal) RADHA) Range (defined by the 99th percentile reference limit): <= 0.034 ng/mL Note: Cardiac troponin begins to rise 3-4 hours after the onset of ischemia. Repeat in 4-6 hours if the sample was drawn within 3-4 hours of the onset of the symptom and found normal. Diagnosis of myocardial injury is made with acute changes in cTn concentrations with at least one serial sample above the 99th percentile upper reference limit (URL), taken together with the patient's clinical presentation. Biotin has been reported to cause a negative bias, interpret results relative to patient's use of biotin. Lab Interpretation Normal (test code = 08460-2) [facility]burg[facility]osphorus [id number] 02:59:26 Test Item Value Reference Range Interpretation Comments PHOSPHORUS (test code = 6570234307) 3.5 mg/dL 2.5-5.0 Lab Interpretation (test code = Normal 85070-2) [facility]ERR[facility]IN [id number] 02:43:44 Test Item Value Reference Range Interpretation Comments FERRITIN (test code = 132.0 ng/mL 18.0-464.0 7748907122) RADHA (test code = RADHA) Biotin has been reported to cause a negative bias, interpret results relative to patient's use of biotin. Lab Interpretation (test Normal code = 69777-6) [facility]YCOSYLATED HEMOGLOBIN (A1C)2021-09-03 02:22:16 Test Item Value Reference Range Interpretation Comments HGB A1C (test code = 6.3 % 4.0-5.7 H 4548-4) RADHA (test code = RADHA) Reference RangesNormal: <5.7%Prediabetes: 5.7 - 6.4%Diabetes: > 6.5% Lab Interpretation (test Abnormal code = 56376-4) [facility]ON [id number] 02:15:44 Test Item Value Reference Range Interpretation Comments IRON (test code = 2776024828) 21 ug/dL 50-160 L TIBC (test code = 7522072466) 294 ug/dL 250-410 % FE SAT (test code = 8577758345) 7 % 20-50 L Lab Interpretation (test code = Abnormal 77577-0) [facility]YROID STIMULATING [id number] 01:17:43 Test Item Value Reference Range Interpretation Comments TSH (test code = See_Comment H [Automated message] 3740144244) The system [employer] generated this result transmitted ref erence range: 0.45 - 4 .70 mIU/L. The refe rence range was not u sed to interpret this result as normal/abnor mal. Lab Interpretation (test Abnormal code = 02742-6) [facility] GLUCOSE (AUTOMATED)2021-09-02 22:51:11 Test Item Value Reference Range Interpretation Comments POCT GLU (test code = 9501055700) 169 mg/dL 70-110 H Lab Interpretation (test code = Abnormal 44843-0) [facility] GLUCOSE (AUTOMATED)2021-09-02 21:35:04 Test Item Value Reference Range Interpretation Comments POCT GLU (test code = 5229513754) 176 mg/dL 70-110 H Lab Interpretation (test code = Abnormal 28377-6) [facility] Ar[facility].2021-09-02 16:59:20 Test Item Value Reference Range Interpretation Comments PH (test code = 2) 7.35-7.45 L PCO2 (test code = See_Comment [Automat ed message] 0350859833) The system [employer] generated this result transmitted ref erence range: 35 - 45 mmHg. The reference r hilary was not used to interpret this result as normal/abnor mal. PO2 (test code = See_Comment L [Automated message] 2497917810) The system [employer] generated this result transmitted ref erence range: 80 - 100 mmHg. The reference r hilary was not used to interpret this result as normal/abnor mal. HCO3 (test code = See_Comment L [Automate d message] 8986558961) The system [employer] generated this result transmitted ref erence range: 22 - 26 mEq/L. The reference r hilary was not used to interpret this result as normal/abnor mal. BE (test code = See_Comment L [Automated message] 6502024297) The system [employer] generated this result transmitted ref erence range: -3.0 - 3 .0 mEq/L. The refe rence range was not u sed to interpret this result as normal/abnor mal. Lab Interpretation (test Abnormal code = 94235-8) [facility] [id number] 16:13:32 Test Item Value Reference Interpretation Comments Range TROPONIN I (test 0.042 ng/mL See_Comment H [Automated code = 4952090325) message] The system which generated this result transmitted reference range : <=0.034. The reference range was not used to interpret this result as normal/abnormal . RADHA (test code = Reference (Normal) RADHA) Range (defined by the 99th percentile reference limit): <= 0.034 ng/mL Note: Cardiac troponin begins to rise 3-4 hours after the onset of ischemia. Repeat in 4-6 hours if the sample was drawn within 3-4 hours of the onset of the symptom and found normal. Diagnosis of myocardial injury is made with acute changes in cTn concentrations with at least one serial sample above the 99th percentile upper reference limit (URL), taken together with the patient's clinical presentation. Biotin has been reported to cause a negative bias, interpret results relative to patient's use of biotin. Lab Interpretation Abnormal (test code = 13513-7) [facility] [id number] 16:10:31 Test Item Value Reference Range Interpretation Comments NT-proBNP (test code 3090 pg/mL See_Comment H [Autom ated = 0334007972) message] The system which generated this result transmitted reference range : <=450. The reference range was not used to interpret this result as normal/abnormal . RADHA (test code = RADHA) Biotin has been reported to cause a negative bias, interpret results relative to patient's use of biotin. Lab Interpretation Abnormal (test code = 40017-2) [facility] METABOLIC PANEL (05574)2021-09-02 16:02:09 Test Item Value Reference Range Interpretation Comments NA (test code = 141 mmol/L 135-145 7969901921) K (test code = 5.3 mmol/L 3.5-5.0 H 9681401775) CL (test code = 113 mmol/L 98-108 H 3438246167) CO2 TOTAL (test code = 21 mmol/L 23-31 L 0727130825) AGAP (test code = 2-16 9736452678) BUN (test code = 37 mg/dL 7-23 H 5694526659) GLUCOSE (test code = 167 mg/dL 70-110 H 1406911172) CREATININE (test code = 2.91 mg/dL 0.60-1.25 H 9789860512) TOTAL BILI (test code = 0.5 mg/dL 0.1-1.5 1338731320) CALCIUM (test code = 8.6 mg/dL 8.6-10.6 9908583915) T PROTEIN (test code = 6.4 g/dL 6.3-8.2 2101231734) ALBUMIN (test code = 3.6 g/dL 3.5-5.0 5976252268) ALK PHOS (test code = 128 U/L 34-122 H 3743215102) ALTv (test code = 21 U/L 5-50 1742-6) AST(SGOT) (test code = 17 U/L 13-40 8294690173) eGFR (test code = mL/min/1.73m2 6883993413) RADHA (test code = RADHA) Association of Glomerular Filtration Rate (GFR) and Staging of Kidney Disease* + --+ --+ ------+| GFR (mL/min/1.73 m2) ?| With Kidney Damage ?| ?Without Kidney Damage+ --------+ --------+ +| ?>90 ?| ?Stage one ?| ? Normal ?+ ---+ ---+ -------+| ?60-89 ?| ?Stage two ?| ? Decreased GFR ? + --+ --+ ------+| ?30-59 ?| ?Stage three ?| ? Stage three ? + --+ --+ ------+| ?15-29 ?| ?Stage four ? | ? Stage four ?+ ---+ ---+ -------+| ?<15 (or dialysis) ? ?| ?Stage five ? | ? Stage five ?+ ---+ ---+ -------+ *Each stage assumes the associated GFR level has been in effect for at least three months. ?Stages 1 to 5, with or without kidney disease, indicate chronic kidney disease. Notes: Determination of stages one and two (with eGFR >59mL/min/1.73 m2) requires estimation of kidney damage for at least three months as defined by structural or functional abnormalities of the kidney, manifested by either:Pathological abnormalities or Markers of kidney damage (including abnormalities in the composition of the blood or urine or abnormalities in imaging tests). Lab Interpretation Abnormal (test code = 62105-6) [facility]29 Test Item Value Reference Range Interpretation Comments LIPASE (test code = 9659790359) 102 U/L 0-220 Lab Interpretation (test code = Normal 90198-7) [facility] [id number] 15:59:08 Test Item Value Reference Range Interpretation Comments APTT Patient (test See_Comment [Automat ed code = 3173-2) message] The system which generated this result transmitted reference range : 23 - 38 Seconds . The reference range was not used to interpr et this result as normal/abnormal . RADHA (test code = RADHA) The [facility] patient population mean normal value for aPTT is 30 seconds. Lab Interpretation Normal (test code = 14564-9) [facility] / [id number] 15:56:48 Test Item Value Reference Range Interpretation Comments PROTIME PATIENT (test See_Comment [Auto mated message] code = 5964-2) The system wh ich generated this result transmitted ref erence range: 12.0 - 1 4.7 Seconds. The re ference range was not u sed to interpret this result as normal/abnor mal. INR (test code = 6301-6) Nor mal INR <1.1; Warfarin Therap eutic range 2.0 to 3. 0 or 2.5 to 3.5, dep ending upon the indica tions. Lab Interpretation (test Normal code = 03092-3) [facility] WITH [id number] 15:48:46 Test Item Value Reference Range Interpretation Comments WBC (test code = See_Comment [Automated 6690-2) message] The sy stem which generated this result transmitted reference range : 4.20 - 10.70 10*3/?L. The reference range was not used to interpret this result as normal/abnormal . RBC (test code = See_Comment L [Automated 789-8) message] The sy stem which generated this result transmitted reference range : 4.26 - 5.52 10*6/?L. The reference range was not used to interpret this result as normal/abnormal . HGB (test code = 9.9 g/dL 12.2-16.4 L 718-7) HCT (test code = 33.2 % 38.4-49.3 L 4544-3) MCV (test code = 97.1 fL 81.7-95.6 H 787-2) MCH (test code = 28.9 pg 26.1-32.7 785-6) MCHC (test code = 29.8 g/dL 31.2-35.0 L 786-4) RDW-SD (test code = 54.7 fL 38.5-51.6 H 25397-3) RDW-CV (test code = 15.5 % 12.1-15.4 H 788-0) PLT (test code = See_Comment [Automated 777-3) message] The sy stem which generated this result transmitted reference range : 150 - 328 10*3/ ?L. The reference r hilary was not used to interpret this result as normal/abnormal . MPV (test code = 9.8 fL 9.8-13.0 68520-1) NRBC/100 WBC (test See_Comment [Automat ed code = 9941833959) message] The system which generated this result transmitted reference range : 0.0 - 10.0 /100 WBCs. The refer ence range was not u sed to interpret th is result as normal/abnormal . NRBC x10^3 (test code <0.01 See_Comment [Auto mated = [id number]) message] The s ystem which generated this result transmitted reference range : 10*3/?L. The reference range was not used to interpret this result as normal/abnormal . GRAN MAT (NEUT) % 76.7 % (test code = 770-8) IMM GRAN % (test code 0.40 % = 9832291309) LYMPH % (test code = 14.6 % 736-9) MONO % (test code = 6.4 % 5905-5) EOS % (test code = 1.5 % 713-8) BASO % (test code = 0.4 % 706-2) GRAN MAT x10^3(ANC) 6.25 10*3/uL 1.99-6.95 (test code = 6164833125) IMM GRAN x10^3 (test 0.03 10*3/uL 0.00-0.06 code = 1734298244) LYMPH x10^3 (test code 1.19 10*3/uL 1.09-3.23 = 731-0) MONO x10^3 (test code 0.52 10*3/uL 0.36-1.02 = 742-7) EOS x10^3 (test code = 0.12 10*3/uL 0.06-0.53 711-2) BASO x10^3 (test code 0.03 10*3/uL 0.01-0.09 = 704-7) Lab Interpretation Abnormal (test code = 57422-0) [facility]"
[2021-10-10] MEDS ORDERED: METHYLPREDNISOLONE 125 MG INJ ONE (00:56)
[2021-10-10] MEDS ORDERED: LEVALBUTEROL 1.25 MG/3 ML NEB ONE (00:56)
[2021-10-10] MEDS ORDERED: FUROSEMIDE 40 MG/4 ML VIAL ONE (00:56)
[2021-10-10] MEDS ORDERED: Magnesium Sulfate 2gm IVPB 2 G/50 ML BAG IV ONE (00:57)
[2021-10-10 01:39] LABS: Absolute Lymphocytes (CBC) 0.8 K/uL (0.7-4.9); Hematocrit 25.7 % (39.6-49.0); Lymphocytes % 11.5 % (15.3-44.8); MPV 7.3 fL (7.6-11.3); RBC Red Blood Cell Count 2.84 M/uL (4.33-5.43)
[2021-10-10 01:41] LABS: Protime INR 1.03
[2021-10-10 01:49] VITALS: O2SAT 100
[2021-10-10 01:51] LABS: Albumin 2.8 g/dL (3.4-5.0); Bilirubin Direct 0.2 mg/dL (0-0.2); Bilirubin Total 0.7 mg/dL (0.2-1.0); Potassium 4.8 mmol/L (3.5-5.1); Protein, Total 6.6 g/dL (6.4-8.2)
[2021-10-10 02:08] LABS: Troponin High Sensitivity 63.5 pg/mL (<58.9)
--- NOTE | 2021-10-10 03:00 | EDPHYS ---
Physician Documentation [facility] Name: Frank López Age: 76 yrs Sex: Male : 1945 Arrival Date: 10/10/2021 Time: 00:38 Bed 4 Private MD: ED Physician Trevor Wallis HPI: 10/10 00:47 This 76 yrs old Male presents to ER via EMS with complaints of sob. rn 00:47 The patient has shortness of breath at rest, with light activity. Onset: The rn symptoms/episode began/occurred 2 week(s) ago. Duration: The symptoms are continuous. The patient's shortness of breath is aggravated by exertion, light activity, is alleviated by application of supplemental oxygen. Severity of symptoms: At their worst the symptoms were moderate in the emergency department the symptoms have improved. The patient has experienced similar episodes in the past. The patient has been recently seen by a physician:. Pt reports recent admission for same problem, at [facility], reports since discharged worsening sob. EMS reports atrial fibrillation with HR up to 160s, BP 200s systolic on arrival, given nitro paste by EMS, placed on CPAP, and improving, HR down to 116. Pt reports feels better now. Denies chest pain.. Historical: - Allergies: 00:44 Codeine; vc1 00:44 Sulfa (Sulfonamide Antibiotics); vc1 - PMHx: 00:44 COPD; Diabetes - NIDDM; High Cholesterol; Hypertension; Atrial fibrillation; vc1 - PSHx: 00:44 Nephrectomy; vc1 - Immunization history:: Adult Immunizations up to date, Client reports having NOT received the Covid vaccine. Flu vaccine is not up to date. - Social history:: Smoking status: Patient denies any tobacco usage or history of. - Family history:: not pertinent. - Hospitalizations: : Patient was recently seen at. ROS: 00:47 Constitutional: Negative for fever, chills, and weight loss, Eyes: Negative for injury, rn pain, redness, and discharge, Neck: Negative for injury, pain, and swelling, Cardiovascular: + palpitations, no chest pain Respiratory: + sob Abdomen/GI: Negative for abdominal pain, nausea, vomiting, diarrhea, and constipation, Back: Negative for injury and pain, MS/Extremity: Negative for injury and deformity, Skin: Negative for injury, rash, and discoloration, Neuro: Negative for headache, weakness, numbness, tingling, and seizure. Exam: 00:47 Constitutional: This is a well developed, well nourished patient who is awake, alert, rn on CPAP, appears comfortable Head/Face: Normocephalic, atraumatic. Eyes: Periorbital areas with no swelling, redness, or edema. Cardiovascular: Tachycardic, irregular Respiratory: + moderate tachypnea, no retractions, coarse bilateral breath sounds with exp wheezing. Abdomen/GI: soft, non-tender Skin: Warm, dry MS/ Extremity: Pulses equal, no cyanosis. Neurovascular intact. Full, normal range of motion. Equal circumference. Neuro: Awake and alert, GCS 15 Vital Signs: 00:39 BP 163 / 93; Pulse 119; Resp 26; Pulse Ox 100% on CPAP; Weight 86.18 kg; Height 5 ft. 9 vc1 in. (175.26 cm); Pain 5/10; 00:49 Resp 23; vc1 01:33 BP 128 / 60; Pulse 103; Resp 24; Pulse Ox 100% on BiPAP; al4 02:33 BP 127 / 70; Pulse 122; Resp 23; Pulse Ox 99% on BiPAP; al4 03:00 BP 122 / 73; Pulse 115; Resp 24; Pulse Ox 100% on BiPAP; al4 03:34 BP 122 / 73; Pulse 107; Resp 22; Pulse Ox 100% on BiPAP; al4 04:40 BP 124 / 69; Pulse 94; Resp 20; Temp 97.9; Pulse Ox 100% on BiPAP; al4 05:53 BP 118 / 66; Pulse 93; Resp 20; Pulse Ox 100% ; al4 06:30 BP 135 / 74; Pulse 92; Resp 19; Pulse Ox 100% on BiPAP; al4 00:39 Body Mass Index 28.06 (86.18 kg, 175.26 cm) vc1 MDM: 00:38 Patient medically screened. rn 02:14 Differential diagnosis: CHF exacerbation, Chronic Obstructive Pulmonary Disease rn Myocardial Infarction pneumonia, Pneumothorax pulmonary edema, reactive airway disease. Data reviewed: vital signs, nurses notes, lab test result(s), EKG, radiologic studies, and as a result, I will admit patient. Response to treatment: the patient's symptoms have markedly improved after treatment, and as a result, I will admit patient. 02:33 ED course: Hemoccult neg, pt states on recent admission, given iron transfusions, rn denies dark stool or bleeding.. 02:57 Counseling: I had a detailed discussion with the patient and/or guardian regarding: the rn historical points, exam findings, and any diagnostic results supporting the discharge/admit diagnosis, lab results, radiology results, the need for further work-up and treatment in the hospital, the need to transfer to another facility. Admission orders: after a detailed discussion of the patient's condition and case, the admit orders are written by me. ED course: Pt requests transfer to [facility] since recently admitted there for same problem. Initiated transfer. . 04:11 ED course: Accepted for transfer to [facility]. . rn 06:24 ED course: Pt now in normal sinus rhythm. Pt doing well, resting. Stable vitals. rn Awaiting transport. 10/10 00:39 Order name: BMP rn 10/10 00:39 Order name: Blood Culture Adult (2) rn 10/10 00:39 Order name: CBC with Diff; Complete Time: 01:58 rn 10/10 00:39 Order name: Hepatic Function; Complete Time: 02:14 rn 10/10 00:39 Order name: NT PRO-BNP; Complete Time: 02:14 rn 10/10 00:39 Order name: PT-INR; Complete Time: 01:42 rn 10/10 00:39 Order name: Ptt, Activated; Complete Time: 01:42 rn 10/10 00:39 Order name: XRAY CXR (1 view) rn 10/10 00:39 Order name: Troponin High Sensitivity; Complete Time: 02:14 rn 10/10 00:39 Order name: Basic Metabolic Panel; Complete Time: 02:14 EDMT 10/10 00:39 Order name: Blood Culture EDMT 10/10 00:39 Order name: BIPAP rn 10/10 00:40 Order name: SARS-COV-2 RT PCR (Document "Date of Onset" if Symptomatic) rn 10/10 00:41 Order name: SARS-COV-2 RT PCR EDMT 10/10 00:39 Order name: EKG; Complete Time: 00:39 rn 10/10 00:39 Order name: Cardiac monitoring; Complete Time: 01:29 rn 10/10 00:39 Order name: EKG - Nurse/Tech; Complete Time: 00:48 rn 10/10 00:39 Order name: IV Saline Lock; Complete Time: : rn 10/10 00:39 Order name: Labs collected and sent; Complete Time: : rn 10/10 00:39 Order name: O2 Per Protocol; Complete Time: :29 rn 10/10 00:39 Order name: O2 Sat Monitoring; Complete Time: 01:30 rn 10/10 06:58 Order name: EKG Electrocardiogram EDMS Administered Medications: 01:28 Drug: Magnesium Sulfate 1 grams {Note: 2RN pump check at bedside with CESAR roberto.} al4 Route: IVPB; Infused Over: 1 hrs; Site: left antecubital; 02:30 Follow up: Response: No adverse reaction; IV Status: Completed infusion al4 01:28 Drug: SOLU-Medrol (methylPrednisoLONE) 125 mg Route: IVP; Site: left antecubital; vc1 02:00 Follow up: Response: No adverse reaction al4 01:28 Drug: Xopenex (levalbuterol) (3) 1.25 mg Route: Inhalation; vc1 02:00 Follow up: Response: No adverse reaction al4 01:28 Drug: Lasix (furosemide) 40 mg Route: IVP; Site: left antecubital; vc1 02:00 Follow up: Response: No adverse reaction al4 03:32 Drug: Cardizem (diltiazem) 30 mg {Note: Dose checked with pharmacist in charge Mary Ann.} Route: PO;al4 04:51 Follow up: Response: No adverse reaction al4 Point of Care Testing: Guaiac: 02:32 Stool Guaiac: Negative; Stool Hemoccult Control: Pass; rn Disposition: 02:59 Critical Care:. rn Disposition Summary: 10/10/21 02:59 Transfer Ordered Transfer Location: [facility] rn Reason: Higher level of care rn Condition: Stable rn Problem: an acute exacerbation rn Symptoms: have improved rn Accepting Physician: (10/10/21 06:59) al4 Diagnosis - Persistent atrial fibrillation rn - Unspecified combined systolic (congestive) and diastolic (congestive) heart failure rn - Acute pulmonary edema rn - Dyspnea, unspecified rn - Hypoxemia rn Forms: - Medication Reconciliation Form rn - SBAR form internal medicine nurse practitioner time excluding procedures: 02:59 Critical care time: Bedside Care: 35 minutes. Total time: 35 minutes rn Signatures: Dispatcher [employer] Trevor Eisenberg MD MD rn Loubet, Lynsea, RN RN ll3 Bert Salas Vanessa RN RN vc1 Corrections: (The following items were deleted from the chart) 00:45 00:44 PMHx: nephrectomy; vc1 vc1 03:00 02:59 Dr. cesar nieto 06:59 03:00 Dr. nieto al4
--- NOTE | 2021-10-10 03:00 | ER ---
Nurse's Notes [facility] Name: Frank López Age: 76 yrs Sex: Male : 1945 Arrival Date: 10/10/2021 Time: 00:38 Bed 4 Private MD: Diagnosis: Persistent atrial fibrillation;Unspecified combined systolic (congestive) and diastolic (congestive) heart failure;Acute pulmonary edema;Dyspnea, unspecified;Hypoxemia Presentation: 10/10 00:39 Chief complaint: EMS states: He was recently admittted for COPD and Afib. When we vc1 arrived his oxygen was in the 70's, he was in afib in the 160s. Coronavirus screen: Vaccine status: Patient reports being unvaccinated. difficulty breathing, shortness of breath, Client presents with at least one sign or symptom that may indicate coronavirus-19. Standard/surgical mask placed on the client. Provider contacted for isolation considerations. Ebola Screen: No symptoms or risks identified at this time. Initial Sepsis Screen: Does the patient meet any 2 criteria? RR > 20 per min. HR > 90 bpm. Yes Does the patient have a suspected source of infection? No. Patient's initial sepsis screen is negative. Risk Assessment: Do you want to hurt yourself or someone else? Patient reports no desire to harm self or others. Onset of symptoms is unknown. Care prior to arrival: Medication(s) given: Nitroglycerin, 22.5 cardizem. 00:39 Method Of Arrival: EMS: [facility] vc1 00:39 Acuity: GAVI 2 vc1 Triage Assessment: 00:44 General: Appears distressed, uncomfortable, Behavior is cooperative, appropriate for 1 age. Pain: Complains of pain in back Pain does not radiate. Pain currently is 5 out of 10 on a pain scale. Neuro: Level of Consciousness is awake, alert, obeys commands, Oriented to person, place, time, situation, Appropriate for age. Cardiovascular: Reports shortness of breath, Patient's skin is warm and dry. Rhythm is atrial fibrillation. Respiratory: Reports shortness of breath labored breathing Airway is patent Respiratory effort is even, labored, Respiratory pattern is symmetrical, tachypnea. Historical: - Allergies: 00:44 Codeine; vc1 00:44 Sulfa (Sulfonamide Antibiotics); vc1 - PMHx: 00:44 COPD; Diabetes - NIDDM; High Cholesterol; Hypertension; Atrial fibrillation; vc1 - PSHx: 00:44 Nephrectomy; vc1 - Immunization history:: Adult Immunizations up to date, Client reports having NOT received the Covid vaccine. Flu vaccine is not up to date. - Social history:: Smoking status: Patient denies any tobacco usage or history of. - Family history:: not pertinent. - Hospitalizations: : Patient was recently seen at. Screenin:46 Abuse screen: Denies threats or abuse. Nutritional screening: No deficits noted. vc1 Tuberculosis screening: No symptoms or risk factors identified. Fall Risk None identified. Assessment: 01:31 General: Appears in no apparent distress. comfortable, Behavior is calm, cooperative, al4 Reports feeling SOB for 2 weeks. patient states he feels much better since arriving to the hospital and after receiving treatment. Pain: Complains of pain in back. Neuro: Level of Consciousness is awake, alert, obeys commands, Oriented to person, place, time, situation. Cardiovascular: Capillary refill < 3 seconds Patient's skin is warm and dry. Respiratory: Airway is patent Respiratory effort is labored, Respiratory pattern is tachypnea Breath sounds are coarse Breath sounds with wheezes. Musculoskeletal: Range of motion: intact in all extremities. 02:32 Reassessment: Patient appears in no apparent distress at this time. Patient and/or al4 family updated on plan of care and expected duration. Pain level reassessed. 03:10 Reassessment: Cardizem is not in this pyxis. aware. Calling ICU to find med. al4 03:34 Reassessment: Patient appears in no apparent distress at this time. Patient and/or al4 family updated on plan of care and expected duration. Pain level reassessed. 04:40 Reassessment: report called to G[facility]nesis at [facility]. al4 04:41 Reassessment: Patient and/or family updated on plan of care and expected duration. Pain al4 level reassessed. 05:53 Reassessment: Patient appears in no apparent distress at this time. patient is sleeping al4 . 06:35 Reassessment: Report given to EMS - [facility]uan. al4 06:42 Reassessment: Patient appears in no apparent distress at this time. Patient is alert al4 and oriented.. Vital Signs: 00:39 BP 163 / 93; Pulse 119; Resp 26; Pulse Ox 100% on CPAP; Weight 86.18 kg; Height 5 ft. 9 vc1 in. (175.26 cm); Pain 5/10; 00:49 Resp 23; vc1 01:33 BP 128 / 60; Pulse 103; Resp 24; Pulse Ox 100% on BiPAP; al4 02:33 BP 127 / 70; Pulse 122; Resp 23; Pulse Ox 99% on BiPAP; al4 03:00 BP 122 / 73; Pulse 115; Resp 24; Pulse Ox 100% on BiPAP; al4 03:34 BP 122 / 73; Pulse 107; Resp 22; Pulse Ox 100% on BiPAP; al4 04:40 BP 124 / 69; Pulse 94; Resp 20; Temp 97.9; Pulse Ox 100% on BiPAP; al4 05:53 BP 118 / 66; Pulse 93; Resp 20; Pulse Ox 100% ; al4 06:30 BP 135 / 74; Pulse 92; Resp 19; Pulse Ox 100% on BiPAP; al4 00:39 Body Mass Index 28.06 (86.18 kg, 175.26 cm) vc1 ED Course: 00:38 Patient arrived in ED. mw2 00:38 Trevor Wallis MD is Attending Physician. rn 00:44 Triage completed. vc1 00:44 Arm band placed on left wrist. vc1 00:46 Patient has correct armband on for positive identification. Placed in gown. Bed in low vc1 position. Call light in reach. bus monitor on. Pulse ox on. NIBP on. 01:00 Inserted saline lock: 20 gauge in left antecubital area, using aseptic technique. Blood al4 collected. 01:00 Maintain EMS IV. Dressing intact. Site clean \\T\\ dry. Gauge \\T\\ site: 20G L Hand. al 4 01:07 XRAY CXR (1 view) In Process Unspecified. EDMS 01:27 Aydee Noel, CESAR is Primary Nurse. ll3 01:28 SARS-COV-2 RT PCR (Document "Date of Onset" if Symptomatic) Sent. ll3 01:28 Blood Culture Sent. ll3 01:28 Basic Metabolic Panel Sent. ll3 01:28 Troponin High Sensitivity Sent. ll3 01:28 BMP Sent. ll3 01:29 BIPAP Sent. vc1 01:30 CBC with Diff Sent. al4 01:30 Hepatic Function Sent. al4 01:30 NT PRO-BNP Sent. al4 01:30 PT-INR Sent. al4 01:30 Ptt, Activated Sent. al4 01:30 SARS-COV-2 RT PCR Sent. al4 01:30 Blood Culture Adult (2) Sent. al4 01:36 Bert Salas is Primary Nurse. al4 02:34 Served as a cutter apprentice hand during rectal exam. al4 02:43 initiated a transfer with Ramona from [facility]. mw2 02:45 faxed over patient information to [facility]. mw2 04:[address] Wallis with the Doctor from the [facility]. mw2 04:10 administrative approval given by Ramona Caba/ patient has been accepted to [facility]/ [facility] Dr. Herrera accepted the patient in transfer/ report to be called to [phone]. 04:39 Patient transferred, IV remains in place. al4 Administered Medications: 01:28 Drug: Magnesium Sulfate 1 grams {Note: 2RN pump check at bedside with CESAR roberto.} al4 Route: IVPB; Infused Over: 1 hrs; Site: left antecubital; 02:30 Follow up: Response: No adverse reaction; IV Status: Completed infusion al4 01:28 Drug: SOLU-Medrol (methylPrednisoLONE) 125 mg Route: IVP; Site: left antecubital; vc1 02:00 Follow up: Response: No adverse reaction al4 01:28 Drug: Xopenex (levalbuterol) (3) 1.25 mg Route: Inhalation; vc1 02:00 Follow up: Response: No adverse reaction al4 01:28 Drug: Lasix (furosemide) 40 mg Route: IVP; Site: left antecubital; vc1 02:00 Follow up: Response: No adverse reaction al4 03:32 Drug: Cardizem (diltiazem) 30 mg {Note: Dose checked with discharge specialistCESAR Roberto.} Route: PO;al4 04:51 Follow up: Response: No adverse reaction al4 Point of Care Testing: Guaiac: 02:32 Stool Guaiac: Negative; Stool Hemoccult Control: Pass; rn Output: 06:40 Urine: 600ml (Voided); Total: 600ml. al4 Outcome: 02:59 ER care complete, transfer ordered by . rn 04:39 Transferred to [facility] al4 04:39 Transferred 04:39 Condition: stable 04:39 Instructed on the need for admit. 06:59 Patient left the ED. al4 Signatures: Dispatcher [employer] EDMS Trevor Wallis MD MD rn [place], MyKena 2 Aydee Noel RN RN 3 Bert Salas al4 Mary Ann Marshall RN RN vc1 Corrections: (The following items were deleted from the chart) 00:45 00:44 PMHx: nephrectomy; vc1 vc1 01:28 01:27 Magnesium Sulfate 1 grams IVPB in left antecubital over 1 hrs ll3 al4 01:29 01:28 Magnesium Sulfate 1 grams IVPB in left antecubital over 1 hrs al4 al4 02:45 01:00 Inserted saline lock: 20 gauge in right antecubital area, using aseptic al4 technique. Blood collected. al4 02:46 01:00 Maintain EMS IV. Dressing intact. Site clean \\T\\ dry. Gauge \\T\\ site: 20G L Hand. al4 al 4 02:51 01:31 Respiratory: Airway is patent Respiratory effort is labored, Respiratory pattern al4 is tachypnea al4 03:32 03:32 Cardizem (diltiazem) 30 mg PO al4 al4 04:31 02:43 initiated a transfer with [facility] mw2 04:43 04:40 BP 124 / 69; Pulse 94bpm; Resp 24bpm; Pulse Ox 100% BiPAP; al4 al4 04:50 04:40 BP 124 / 69; Pulse 94bpm; Resp 24bpm; Pulse Ox 100% BiPAP; Temp 97.9F; al4 al4 05:56 05:53 BP 188 / 66; Pulse 93bpm; Resp 20bpm; Pulse Ox 100%; al4 al4 06:41 01:00 Maintain EMS IV. Dressing intact. Site clean \\T\\ dry. Gauge \\T\\ site: 20G L Wrist. al4al 4
[2021-10-10] MEDS ORDERED: DILTIAZEM HCL 60 MG TAB ONE (03:22)
[2021-10-10 07:11] VITALS: TEMP 97.9
[2021-10-10 07:13] VITALS: BP 135/74
--- NOTE | 2021-10-10 07:39 | RAD REPORT ---
EXAM DESCRIPTION: RAD - Chest Single View - 10/10/2021 1:07 am CLINICAL HISTORY: DYSPNEA COMPARISON: Chest Single View dated 08/10/2021; Chest Pa And Lat (2 Views) dated 08/07/2021; Chest P a And Lat (2 Views) dated 08/05/2018; Chest Single View dated 08/02/2018 FINDINGS: Lines: None. Lungs: Increased prominence of the pulmonary interstitium. Ill-defined bilateral opacities. Pleural: No significant pleural effusions or pneumothorax. Cardiac: The heart size is within normal limits. Bones: No acute fractures. Other: IMPRESSION: Increased ill-defined opacities and prominence of the pulmonary interstitium that may re flect edema and/or multifocal pneumonia.
--- NOTE | 2021-10-10 11:07 | EKG ---
Test Date: 2021-10-10 Test Time: 00:47:47 Plate Colorer: CHELE MEASUREMENT RESULTS: Intervals: Rate: 119 ND: QRSD: 88 QT: 328 QTc: 461 [place]: P: ND: QRS: -63 T: -30 INTERPRETIVE STATEMENTS: afib/rvr Left axis deviation Low voltage QRS Inferior infarct, age undetermined Abnormal ECG Compared to ECG 08/10/2021 18:03:17 Left-axis deviation now present Low QRS voltage now present Myocardial infarct finding now present Electronically Signed On 10-10-21 11:06:59 MUSHROOM GROWTH MEDIA MIXER by Humble Will
--- NOTE | 2021-10-10 11:07 | EKG ---
Test Date: 2021-10-10 Test Time: 06:21:01 Automatic Teller Machine Servicer: CHELE MEASUREMENT RESULTS: Intervals: Rate: 93 NH: 146 QRSD: 98 QT: 362 QTc: 450 [place]: P: 98 NH: 146 QRS: 17 T: 97 INTERPRETIVE STATEMENTS: Normal sinus rhythm T wave abnormality, consider lateral ischemia Abnormal ECG Compared to ECG 10/10/2021 00:47:47 T-wave abnormality now present Possible ischemia now present Left-axis deviation no longer present Myocardial infarct finding no longer present Electronically Signed On 10-10-21 11:06:28 GEAR SHAPER by Humble Will
== END 2021-10-10 06:59 ==
LOC: ER 00:35
DX: I50.40 Unspecified combined systolic (congestive) and diastolic (congestive) heart failure (principal); I48.19 Other persistent atrial fibrillation; J81.0 Acute pulmonary edema; R09.02 Hypoxemia; Z20.822 Contact with and (suspected) exposure to COVID-19; I10 Essential (primary) hypertension; E11.9 Type 2 diabetes mellitus without complications; Z88.2 Allergy status to sulfonamides; Z88.5 Allergy status to narcotic agent
CPT/HCPCS: 93005 ×2; 87040 ×2; 85025; 80048; 36415; 85610; 80076; 85730; 84484; 83880; 71045; 94760 ×2; 94660; U0003; J1940; J3475; J2930; 96365; 96375; 99285

== ENCOUNTER 2022-07-14 16:34 | Inpatient (IN) | payer OTHER ==
--- OUTSIDE RECORDS SUMMARY | 2022-07-14 16:40 | XMS REPORT | Continuity of Care Document ---
:1945 Author Organization [facility] t Address [address] [place] [address] Care Team Providers Name Role Phone [facility], [facility] Primary Care Physician [phone] Doctor Unassigned, [place] Attending Clinician Unavailable Hemanth Redmond RN Attending Clinician Unavailable JERE WOODWARD Attending Clinician Unavailable Quinn Ibarra MD Attending Clinician Jere Woodward MD Attending Clinician JERE WOODWARD Admitting Clinician Unavailable Jere Woodward MD Admitting Clinician Payers Payer Name Policy Type Policy Number Effective Date Expiration Date S lj [facility]1 [id number] [facility] C1 [id number] [facility] Problems Condition Condition Condition Status Onset Resolution Last Treating Co mments Source Name Details Category Date Date Treatment Clinician Date Troponin I Troponin I Disease Active U nivers above above 1-26 [place] 00 [place] Atrial Atrial Disease Active Univers flutter flutter -26 [place]y of with rapid [place] ventricula ventricula 00 Me dical r response r response Br anch Pulmonary Pulmonary Disease Active Uni vers hypertensi hypertensi 1-25 it y of on on 00:00: [place] [facility] Obesity Obesity Disease Active Univers (BMI (BMI 1-24 ity of 30-39.9) 30-39.9) 00:00: [place] 00 Medical Branch Coronary Coronary Disease Active Unive rs artery artery 1-24 ity of disease disease 00:00: [place] involving involving 00 Medi unruly [place] coronary coronary artery of artery of [place] heart heart without without angina angina pectoris pectoris Atrial Atrial Disease Active Univers flutter flutter 1-24 ity of 00:00: [place] [facility] PAD PAD Disease Active Univers (periphera (periphera 1-24 it y of l artery l artery 00:00: [place] disease) disease) 00 Medica l Branch Chronic Chronic Disease Active Univers diastolic diastolic 1-24 ity of congestive congestive 00:00[place] heart heart 00 Medical failure failure Branch Primary Primary Disease Active Univers hypertensi hypertensi 1-24 it y of on on 00:00: [place] [facility] Other Other Disease Active Univers hyperlipid hyperlipid 1-24 it y of emia emia 00:00: [place] [facility] JAZZY (acute JAZZY (acute Disease Active U erika kidney kidney 1-24 ity of injury) injury) 00:00: [place] [facility] Toe ulcer, Toe ulcer, Disease Active U nivmaurice right, right, 2-20 ity of limited to limited to 00:[place] breakdown breakdown 00 Medi unruly of skin of skin Branch COPD COPD Disease Active Univers exacerbati exacerbati 2-16 it y of on on 00:00: [place] [facility] COPD COPD Disease Active Univers (chronic (chronic 2-15 ity of obstructiv obstructiv 00[place]00: [place] e e 00 Medical pulmonary pulmonary Bran ch disease) disease) HCAP HCAP Disease Active Univers (healthcar (healthcar 1-20 it y of e-associat e-associat 00:00: [place] ed ed 00 Medical pneumonia) pneumonia) Br anch Eschar of Eschar of Disease Active 2016-08 Uni vers foot foot 09-07 ity of 00:00: [place] [facility] Respirator Respirator Disease Active 2016-08 U nivers y failure, y failure, 09-05 it y of acute acute 00:00: 00 Medical Branch [id number] MRSA Problem Active Common (methicill Spirit in - [facility] resistant [facility] staph [facility] aureus) Medical culture Center positive [id number] OAB Problem Active Common (overactiv Spirit e bladder) - [facility] [id number] Urge Problem Active Common incontinen Spirit ce - [facility] [id number] 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 Allergies, Adverse Reactions, Alerts Allergy Allergy Status Severity Reaction(s) Onset Inactive Treating Comm ents Source Name Type Date Date Clinician Piperaci Propensi Active Rash LEUKOCYTO Uni vers llin-David ty to 10-07 CLASTIC ity of obactam adverse 00:00: VASCULITI [place] reaction 00 S Medical s Branch PIPERACI DRUG Active Rash Univers LLIN-DAVID 10-07 ity of OBACTAM 00:00: 00 Medical Branch Amiodaro Drug Active Rash [...] Codeine Propensi Active Rash Univers ty to 11-11 ity of adverse 00:00: [place] reaction 00 Medical s Branch Sulfa Propensi Active Swelling Univer s (Sulfona ty to 11-11 ity of mide adverse 00:00: [place] Antibiot reaction 00 Medica l ics) s Branch CODEINE DRUG Active Rash Univers INGREDI 4- ity of 00:00: [place] 00 Medical Branch SULFA Drug Active Swelling Univers (SULFONA Class 4-03 ity of MIDE 00:00: [place] ANTIBIOT 00 Medical ICS) Branch Social History Social Habit Start Date Stop Date Quantity Comments Source Exposure to Not sure [facility] SARS-CoV-2 [place] Medical (event) Branch Sex Assigned At Common Sp marcio - [facility] History of Common Spirit - Tobacco Use [facility] Alcohol intake 2021-09-07 2021-09-07 Current University of 00:00:00 00:00:00 non-drinker of [facility] alcohol [place] (finding) Tobacco use and 2017-09-25 2017-09-25 Never used Universit y of exposure 00:00:00 00:00:00 [facility] Tobacco Comment 2017-09-25 2017-09-25 Quit 1 month ago Uni versity of 00:00:00 00:00:00 [facility] Smoking Status Start Date Stop Date Source Former smoker 2017-09-25 00:00:00 2017-09-25 00:00:00 Universi ty [facility] Medications Ordered Filled Start Stop Current Ordering Indication Dosage Frequency Signature Comments Components Source Medication Medication Date Date Medication? Clinician (SIG) Name Name linezolid 600mg 600 mg, Uni vers (ZYVOX) 09-12 [...] approved by: ADC PROVIDER aspirin 81 2021- No [id number] 81mg Take 1 Univers mg EC 09-12 tablet by ity of tablet 00:00: 05:59 mouth [place] 00 :00 daily for Medical 30 days. Branch aspirin 81 2021- No [id number] 81mg Take 1 Univers mg EC 09-1205 tablet by ity of tablet 00:00: 05:59 mouth [place] 00 :00 daily for Medical 30 days. Branch atorvastati 2021-0 Yes 40mg Take 40 mg Univers n 40 mg 2-01 by mouth ity of tablet 18:18: at [place] 48 bedtime. Medical Branch gabapentin 2021-0 Yes 300mg Take 300 Un cameron 300 mg 2-01 mg by ity of tablet 18:18: mouth [place] 48 daily. Medical Branch FINASTERIDE 2021-0 Yes 5mg 5 mg. [employer] rs , BULK, 2- ity of MISC 18:18: [place] 48 Medical Branch PAROXETINE 2021-0 Yes 20mg Take 20 mg U nivers HCL (PAXIL 2-01 by mouth. ity of ORAL) 18:18: [place] 48 Medical Branch allopurinol 2021-0 Yes 100mg Take 100 U nivers 100 mg 2-01 mg by ity of tablet 18:18: mouth [place] 48 daily. Medical Branch Mometasone 2021-0 Yes Inhale. Univ ers (ASMANEX 2-01 ity of TWISTHALER) 18:18: [place] 110 mcg (30 48 Medical doses) Branch aerosol powder tamsulosin 2021-0 Yes .4mg Take 0.4 Uni vers (FLOMAX) 2-01 mg by ity of 0.4 mg 24 18:18: mouth [place] hr capsule 48 daily. Medical Branch atorvastati 2021-0 Yes 40mg Take 40 mg Univers n 40 mg 2-01 by mouth ity of tablet 18:18: at [place] 48 bedtime. Medical Branch gabapentin 2021-0 Yes 300mg Take 300 Un cameron 300 mg 2-01 mg by ity of tablet 18:18: mouth [place] 48 daily. Medical Branch FINASTERIDE 2021-0 Yes 5mg 5 mg. Runae Bloson , BULK, 2- ity of MISC 18:18: [place] 48 Medical Branch PAROXETINE 2021-0 Yes 20mg Take 20 mg U nivers HCL (PAXIL 2-01 by mouth. ity of ORAL) 18:18: [place] 48 Medical Branch allopurinol 2021-0 Yes 100mg Take 100 U nivers 100 mg 2-01 mg by ity of tablet 18:18: mouth [place] 48 daily. Medical Branch Mometasone 2021-0 Yes Inhale. Univ ers (ASMANEX 2-01 ity of TWISTHALER) 18:18: [place] 110 mcg (30 48 Medical doses) Branch aerosol powder tamsulosin Yes .4mg Take 0.4 Uni vers (FLOMAX) 2-01 mg by ity of 0.4 mg 24 18:18: mouth [place] hr capsule 48 daily. Medical Branch atorvastati Yes 40mg Take 40 mg Univers n 40 mg 2-01 by mouth ity of tablet 18:18: at [place] 48 bedtime. Medical Branch gabapentin Yes 300mg [...] mg by ity of tablet 18:18: mouth [place] 48 daily. Medical Branch Mometasone Yes Inhale. Univ ers (ASMANEX - ity of TWISTHALER) 18:18: [place] 110 mcg (30 48 Medical doses) Branch aerosol powder tamsulosin Yes .4mg Take 0.4 Uni vers (FLOMAX) 2-01 mg by ity of 0.4 mg 24 18:18: mouth [place] hr capsule 48 daily. Medical Branch NIFEdipine 2021- No 60mg Take 60 mg Univers XL 60 mg 24 09-11 by mouth ity of hr tablet 17:09: 00:00 daily. [place] 04 :00 Medical Branch apixaban 5 2021- No [id number] 5mg Take 1 Univ ers mg tablet 09-11 tablet by ity of 00:00: 05:59 mouth 2 [place] 00 :00 (two) Medical times Branch daily for 30 days. Indication s: prevention of thromboemb olism in paroxysmal atrial fibrillati on ferrous 2021- No [id number] 325mg Take 1 U nivers sulfate 325 09-11 tablet by it y of mg (65 mg 00:00: 05:59 [place] 2 [place] iron) 00 :00 (two) Medical tablet times Branch daily for 30 days. diltiazem No [id number] 120mg Take 1 Univers 120 mg 24 09-11 capsule by ity of hr capsule 00:00: 05:59 mouth [place] 00 :00 daily for Medical 30 days. Branch apixaban 5 2021- No [id number] 5mg Take 1 Univ ers mg tablet 09-11 tablet by ity of 00:00: 05:59 mouth 2 [place] 00 :00 (two) Medical times Branch daily for 30 days. Indication s: prevention of thromboemb olism in paroxysmal atrial fibrillati on ferrous 2021- No [id number] 325mg Take 1 U nivers sulfate 325 09-11 tablet by it y of mg (65 mg 00:00: 05:59 mouth 2 [place] iron) 00 :00 (two) Medical tablet times Branch daily for 30 days. diltiazem No [id number] 120mg Take 1 Univers 120 mg 24 09-11 capsule by ity of hr capsule 00:00: 05:59 mouth [place] 00 :00 daily for Medical 30 days. Branch linezolid No [id number] 600mg Take 1 Univers 600 mg 09-11 tablet by ity of tablet 00:00: 05:59 mouth [place] 00 :00 every 12 Medical (twelve) Branch hours for 7 days. linezolid No [id number] 600mg Take 1 Univers 600 mg 09-11 tablet by ity of tablet 00:00: 05:59 mouth [place] 00 :00 every 12 Medical (twelve) Branch hours for 7 days. diltiazem No [id number] 30mg Take 1 Univers 30 mg 09-11 tablet by ity of tablet 00:00: 00:00 mouth [place] 00 :00 every 6 Medical (six) Branch hours for 30 days. HYDROcodone Yes 1{tbl} 1 tablet, Univers -acetaminop 1-31 Oral, ity of hen (NORCO 21:51: Q6HPRN, [place] 5) 5-325 mg 07 Starting Medi unurly tablet 1 on Fri Branch tablet 09/10/21 at 1551, Until Discontinu ed, Routine, Pain (scale 7-10) traMADoL No 50mg 50 mg, Univer s (ULTRAM) 09-10 Oral, ity of tablet 50 19:30: 19:08 ONCE, 1 [place] mg 00 :00 dose, On Medical Fri Branch 09/10/21 at 1330, Routine apixaban Yes 5mg 5 mg, Univers (ELIQUIS) 09-10 Oral, BID, ity of tablet 5 mg 02:00: First dose [place] 00 on [place] Medical 09/09/21 at Branch 1999, Until Discontinu ed, Routine
Indicatio ns: Non-Valvul [...] ity of PEDIATRIC 05:15: 15:14 at 75 [place] IV infusion 00 :00 mL/hr, Medica l [facility] , Starting on Fri09/05/21 at 2315, Until Dee 09/06/21 at 0914, Routine benzonatate Yes 100mg 100 mg, Un cameron (TESSALON 09-06 Oral, ity of PERLES) 00:54: Q8HPRN, [place] capsule 100 06 Starting Medi unruly mg on Fri Branch 09/05/21 at 1854, Until Discontinu ed, Routine, Cough diltiazem Yes 30mg 30 mg, Univer s (CARDIZEM) 09-05 Oral, Q6H, ity of tablet 30 18:00: First dose [place] mg 00 on Fri Medical 09/05/21 at Branch 1200, Until Discontinu [...] of 1,000 mg in 05:45: 16:07 Piggyback, [place] NaCl 0.9% 00 :48 Q24H ABX, Medic al (NS) 50 mL First dose Bra [facility] MINI-BAG on Fri09/03/21 at 2345, Until Discontinu [...] First dose [place] mg 00 on [facility] 09/03/21 at Branch 1030, Until Discontinu ed, Routine aspirin EC Yes 81mg 81 mg, Unive rs tablet 81 09-03 Oral, ity of mg 15:00: DAILY, [place] 00 First dose Medical on [facility] 09/03/21 at 0900, Until Discontinu ed, Routine PARoxetine Yes 20mg 20 mg, Unive rs (PAXIL) 09-03 Oral, ity of tablet 20 15:00: DAILY, [place] mg 00 First dose Medical on [facility] 09/03/21 at 0900, Until Discontinu ed finasteride Yes 5mg 5 mg, Unive rs (PROSCAR) 09-03 Oral, ity of tablet 5 mg 15:00: DAILY, [place] 00 First dose Medical on [facility] 09/03/21 at 0900, Until Discontinu ed NIFEdipine 2021- No 60mg 60 mg, Univ ers ER tablet 09-03 Oral, ity of 60 mg 15:00: 14:27 DAILY, [place] 00 :50 First dose Medical on [facility] 09/03/21 at 0900, Until Discontinu ed tamsulosin 2021- No .4mg 0.4 mg, Uni vers (FLOMAX) 09-03 Oral, ity of capsule 0.4 15:00: 03:06 DAILY, [place] as mg 00 :19 First dose Medical on [facility] 09/03/21 at 0900, Until Discontinu ed, Routine azithromyci 2021- No 500mg 500 mg, IV Univers n 09-03 Piggyback, ity of (ZITHROMAX) 07:30: 00:32 Q24H ABX, [place] 500 mg in 00 :51 First dose [facility] NaCl 0.9% on [facility] (NS) 250 mL 09/03/21 at VIAL-MATE [...] (0.083 15 Starting Medica l %) on [facility] nebulizer 09/03/21 at solution 0029, 2.5 mg Until Discontinu ed, Routine, Shortness of Breath, Wheezing, Bronchospa sm heparin 2021- No 5000U 5,000 Univers (porcine) 09-03 01-30 Units, ity of injection 04:00: 17:52 Subcutaneo [place] 5,000 Units 00 :16 us, Q8H, Medi unruly First dose Branch on [place] 09/02/21 at 2200, Until Discontinu ed, Routine atorvastati Yes 40mg 40 mg, Univ ers n (LIPITOR) -24 Oral, QHS, it y of tablet 40 03:00: First dose [place] mg 00 on [facility] 09/02/21 at Branch 2100, Until Discontinu ed, Routine budesonide- Yes 2{puff} 2 Puff, Univers formoteroL 09-03 Inhalation ity of (SYMBICORT) 02:00: , BID, [place] 160-4.5 00 First dose Medica l mcg/actuati on [facility] on inhaler 09/02/21 at 2 Puff 1999, Until Discontinu ed, Routine ipratropium Yes 3mL 3 mL, Unive rs -albuteroL 09-03 Inhalation ity of (DUONEB) 02:00: , Q4H, [place] 0.5 mg-3 00 First dose Medic al mg(2.5 mg (after Branch base)/3 mL last nebulizer modificati solution 3 on) on [facility] 09/02/21 at 2000, Until Discontinu ed, AILYN furosemide 2021- No 20mg 20 mg, Univ ers (LASIX) 09-03 Slow IV ity of injection 01:15: 02:16 Push, [place] 20 mg 00 :00 ONCE, 1 Medical dose, On [facility] 09/02/21 at 1915, Routine methylPREDN 2021- No 40mg 40 mg, Uni vers ISolone sod 09-03 Intravenou i ty of succ 00:00: 21:42 s, Q6H, [place] (SOLU-MEDRO 00 :53 First dose Me dical L (PF)) (after Branch injection last 40 mg reorder) on [place] 09/02/21 at 1800, Until Discontinu ed, STAT Sliding Yes Subcutaneo Univ ers Scale 1-23 us, TID ity of Insulin - 23:00: MEALS+HS, [place]ra[place] as Lispro 00 First dose Medical (HumaLOG) + on [facility] Fsbg 09/02/21 at Testing 1700, Until Discontinu ed, Routine glucagon Yes 1mg 1 mg, Univers (GLUCAGEN 09-02 Intramuscu ity of DIAGNOSTIC 22:44: lar, PRN, [place] KIT) 34 Starting Medical injection 1 on [facility] mg 09/02/21 at 1644, Until Discontinu ed, AILYN, Blood Glucose < or = 70 mg/dL and patient is unable to swallow or has mental changes. dextrose 50 Yes 25mL 25 mL, Univ ers % in water 09-02 Slow IV ity of (D50W) 22:44: Push, PRN, [place] injection 34 Starting Medica l 25 mL on [facility] 09/02/21 at 1644, Until Discontinu ed, AILYN, Blood Glucose < or = 70 mg/dL and patient is unable to swallow or has mental status changes. acetaminoph Yes 650mg 650 mg, Un cameron en 09-02 Oral, ity of (TYLENOL) 21:38: Q6HPRN, [place] tablet 650 12 Starting Medic al mg on Sun Branch 09/02/21 at 1538, Until Discontinu ed, Routine, Pain (scale 1-3) ipratropium 2021- No 3mL 3 mL, Univ ers -albuteroL 09-02 Inhalation it y of (DUONEB) 19:15: 18:44 , ONCE, 1 [place] 0.5 mg-3 00 :00 dose, On Medical mg(2.5 mg [facility] base)/3 mL 09/02/21 at nebulizer 1315, AILYN solution 3 mL Saxagliptin 2021- No 2.5mg Take 2.5 Univers 2.5 mg 09-02 mg by ity of tablet 18:17: 00:00 mouth [place] 03 :00 daily. Medical Branch furosemide 2021- No 20mg Take 20 mg Univers 20 mg 09-02 by mouth ity of tablet 18:17: 00:00 daily. [place] 03 :00 Medical Branch busPIRone 2021- No 10mg Take 10 mg U nivers 10 mg 09-02 by mouth ity of tablet 18:17: 00:00 daily. [place] 03 :00 Medical Branch GLIPIZIDE 2021- No 10mg Take 10 mg U nivers ORAL 09-02 by mouth. ity of 18:17: 00:00 [place] :00 Medical Branch amLODIPine 2021- No 5mg Take 5 mg U nivers 5 mg tablet 09-02 by mouth ity of 18:17: 00:00 daily. [place] 03 :00 Medical Branch tiotropium 2021- No Inhale. Uni vers bromide 09-02 ity of (SPIRIVA 18:17: 00:00 [place] WITH 03 :00 Medical HANDIHALER Branch INHALE) [...] 09/02/21 at 40 mg 1045, STAT benzonatate 0 Yes [id number] 100mg Take 1 Univers 100 mg 1-23 capsule by ity of capsule 00:00: mouth 3 [place] 00 (three) Medical times Branch daily as needed for Cough. albuterol Yes [id number] 2{puff} Inhale 2 Univers 90 1-23 Puffs ity of mcg/actuati 00:00: every 4 [place] on inhaler 00 (four) Medical hours as Branch needed for Wheezing or Shortness of Breath. albuterol 0 Yes [id number] 2.5mg Inhale 3 Univers 2.5 mg /3 1-23 mL every 4 ity of mL (0.083 00:00: (four) [place] %) 00 hours. May Medical nebulizer also Branch solution nebulize one extra every 6 hours. furosemide 0 Yes [id number] 20mg Take 1 U nivers 20 mg 1-23 tablet by ity of tablet 00:00: mouth [place] 00 every Medical morning. Branch benzonatate 2021-0 Yes [id number] 100mg Take 1 Univers 100 mg 1-23 capsule by ity of capsule 00:00: mouth 3 [place] 00 (three) Medical times Branch daily as needed for Cough. albuterol Yes [id number] 2{puff} Inhale 2 Univers 90 1-23 Puffs ity of mcg/actuati 00:00: every 4 [place] on inhaler 00 (four) Medical hours as Branch needed for Wheezing or Shortness of Breath. albuterol Yes [id number] 2.5mg Inhale 3 Univers 2.5 mg /3 1-23 mL every 4 ity of mL (0.083 00:00: (four) [place] %) 00 hours. May Medical nebulizer also Branch solution nebulize one extra every 6 hours. furosemide Yes [id number] 20mg Take 1 U nivers 20 mg 1-23 tablet by ity of tablet 00:00: mouth [place] 00 every Medical morning. Branch benzonatate Yes [id number] 100mg Take 1 Univers 100 mg 1-23 capsule by ity of capsule 00:00: mouth 3 [place] 00 (three) Medical times Branch daily as needed for Cough. albuterol Yes [id number] 2{puff} Inhale 2 Univers 90 1-23 Puffs ity of mcg/actuati 00:00: every 4 [place] on inhaler 00 (four) Medical hours as Branch needed for Wheezing or Shortness of Breath. albuterol Yes [id number] 2.5mg Inhale 3 Univers 2.5 mg /3 1-23 mL every 4 ity of mL (0.083 00:00: (four) [place] %) 00 hours. May Medical nebulizer also Branch solution nebulize one extra every 6 hours. furosemide Yes [id number] 20mg Take 1 U nivers 20 mg 1-23 tablet by ity of tablet 00:00: mouth [place] 00 every Medical morning. Branch predniSONE 2021-2021- No [id number] 40mg Take 2 Univers 20 mg 1-23 01-31 tablets by ity of tablet 00:00: 05:59 mouth [place] 00 :00 daily for Medical 7 days. Branch budesonide- Yes [id number] 2{puff} Inhale 2 Univers formoterol 3-29 Puffs 2 ity of (SYMBICORT) 00:00: (two) [place] 160-4.5 00 times Medical mcg/actuati daily. Branch on inhaler budesonide- Yes [id number] 2{puff} Inhale 2 Univers formoterol 3-29 Puffs 2 ity of (SYMBICORT) 00:00: (two) [place] 160-4.5 00 times Medical mcg/actuati daily. Branch on inhaler budesonide- Yes [id number] 2{puff} Inhale 2 Univers formoterol 3-29 Puffs 2 ity of (SYMBICORT) 00:00: (two) [place] 160-4.5 00 times Medical mcg/actuati daily. Branch on inhaler apixaban 5 2021- No 5mg Take 1 Univ ers mg tablet 11-03 tablet by ity of 00:00: 00:00 mouth [...] solution budesonide- 2021- No 2{puff} Inhale 2 Univers formoterol 2-26 02-01 Puffs 2 ity o f 160-4.5 00:00: 00:00 (two) [place] mcg/actuati 00 :00 times Medical on inhaler daily. Branch albuterol-i 2021- No 1{puff} Inhale 1 Univers pratropium 2-26 02-01 Puff every it y of 20-100 00:00: 00:00 6 (six) [place] mcg/actuati 00 :00 hours. Medica l on inhaler Branch Vitamin B12 Vitamin B12 No 1{table QD Vitamin 1000 MCG 1000 MCG t} B12 1000 MCG Aspirin Aspirin No 1{table QD Aspirin Adult 325 Adult 325 t} Adult 325 MG MG MG Clobetasol Clobetasol No 1{appli BID Clobetasol Propionate Propionate cation} Propionate 0.05 % 0.05 % 0.05 % Cholecalcif Cholecalcif No 1{capsu QD Cholecalci billy 50 MCG billy 50 MCG le} ferol 50 (1999) (1999) MCG (1999) Allopurinol Allopurinol No 1{table QD Allopurino 100 MG 100 MG t} l 100 MG Amlodipine Amlodipine No 1{table QD Amlodipine Besylate 10 Besylate 10 t} Besylate MG MG 10 MG Paroxetine Paroxetine No 1{table QD Paroxetine Mesylate 40 Mesylate 40 t_in_th Mesylate MG MG e_morni 40 MG ng} Finasteride Finasteride No 1{table QD Finasterid 5 MG 5 MG t} e 5 MG Lipitor 80 Lipitor 80 No 1{table QD Lipitor 80 MG MG t} MG Gabapentin Gabapentin No 1{capsu QD Gabapentin 300 MG 300 MG le} 300 MG Tamsulosin Tamsulosin No 1{capsu QD Tamsulosin HCl 0.4 MG HCl 0.4 MG le} HCl 0.4 MG Vitamin B12 Vitamin B12 No 1{table QD Vitamin 1000 MCG 1000 MCG t} B12 1000 MCG Aspirin Aspirin No 1{table QD Aspirin Adult 325 Adult 325 t} Adult 325 MG MG MG Clobetasol Clobetasol No 1{appli BID Clobetasol Propionate Propionate cation} Propionate 0.05 % 0.05 % 0.05 % Cholecalcif Cholecalcif No 1{capsu QD Cholecalci billy 50 MCG billy 50 MCG le} ferol 50 (1999) (1999) MCG (1999) Allopurinol Allopurinol No 1{table QD Allopurino 100 MG 100 MG t} l 100 MG Amlodipine Amlodipine No 1{table QD Amlodipine Besylate 10 Besylate 10 t} Besylate MG MG 10 MG Paroxetine Paroxetine No 1{table QD Paroxetine Mesylate 40 Mesylate 40 t_in_th Mesylate MG MG e_morni 40 MG ng} Finasteride Finasteride No 1{table QD Finasterid 5 MG 5 MG t} e 5 MG Lipitor 80 Lipitor 80 No 1{table QD Lipitor 80 MG MG t} MG Gabapentin Gabapentin No 1{capsu QD Gabapentin 300 MG 300 MG le} 300 MG Tamsulosin Tamsulosin No 1{capsu QD Tamsulosin HCl 0.4 MG HCl 0.4 MG le} HCl 0.4 MG Immunizations Ordered Filled Immunization Date Status Comments Sourc e Immunization Name Name Pneumococcal 13 2017-10-06 Completed Universit y of Conjugate, PCV13 00:00:00 [facility] dical (Prevnar 13) Branch Pneumococcal 13 2017-10-06 Completed Universit y of Conjugate, PCV13 00:00:00 [facility] dical (Prevnar 13) Branch Pneumococcal 13 2017-10-06 Completed Universit y of Conjugate, PCV13 00:00:00 [facility] dical (Prevnar 13) [place] Influenza Virus 2017-05-11 Completed Universit y of Vaccine 00:00:00 [facility] Influenza Virus 2017-05-11 Completed Universit y of Vaccine 00:00:00 [facility] Influenza Virus 2017-05-11 Completed Universit y of Vaccine 00:00:00 [facility] Vital Signs Vital Name Observation Time Observation Value Comments Source Systolic blood 2021-09-11 22:27:00 126 mm[Hg] Univer sity of pressure [facility] Diastolic blood 2021-09-11 22:27:00 66 mm[Hg] Unive rsity of pressure [facility] Heart rate 2021-09-11 22:27:00 77 /min [facility] Body temperature 2021-09-11 22:27:00 37 Jazmin [facility] Respiratory rate 2021-09-11 22:27:00 18 /min [facility] Oxygen saturation in 2021-09-11 22:27:00 96 /min [facility] Arterial blood by [facility] Pulse oximetry Branch Body weight 2021-09-10 10:13:00 91.627 kg [facility] BMI 2021-09-10 10:13:00 29.83 kg/m2 [facility] Body height 2021-09-02 15:19:00 175.3 cm [facility] height 2020-07-31 11:30:00 69 [in_i] Common S pirit - [facility] weight 2020-07-31 11:30:00 210.8 [lb_av] Common [facility] temperature 2020-07-31 11:30:00 98.3 [degF] Common [facility] bmi 2020-07-31 11:30:00 31.13 kg/m2 Common [facility] oximetry 2020-07-31 11:30:00 97 % Common [facility] blood pressure 2020-07-31 11:30:00 169 mm[Hg] [facility] blood pressure 2020-07-31 11:30:00 76 mm[Hg] Common [facility] - diastolic [facility] Procedures Procedure Date / Time Performing Clinician Source Performed AUTHORIZATION FOR RELEASE 2021-10-11 06:01:00 Doctor Unassigned, [facility] [place] [facility] POCT GLUCOSE (AUTOMATED) 2021-09-11 17:51:00 [facility] 2021-09-11 14:11:00 Jere Woodward [facility] BASIC METABOLIC PANEL (NA, 2021-09-11 10:33:00 Lance Solis [facility] K, CL, CO2, GLUCOSE, BUN, Medica l Branch CREATININE, CA) CBC WITH DIFF 2021-09-11 10:33:00 Lance Solis [facility] POCT GLUCOSE (AUTOMATED) 2021-09-11 02:20:00 [facility] 2021-09-10 23:10:00 [facility] ([facility]ATED) 2021-09-10 17:41:00 [facility] ([facility]OMATED) 2021-09-10 13:53:00 Jere Woodward versity [facility] POCT GLUCOSE (AUTOMATED) 2021-09-10 03:13:00 [facility] ([facility]) 2021-09-09 23:15:00 [facility] ([facility]OMATED) 2021-09-09 17:16:00 Jere Woodward [facility] POCT GLUCOSE (AUTOMATED) 2021-09-09 13:49:00 [facility] BASIC METABOLIC PANEL (NA, 2021-09-09 11:00:00 Lance Solis [facility] K, CL, CO2, GLUCOSE, BUN, Medica l Branch CREATININE, CA) LIPID PANEL (35123)(TOTAL 2021-09-09 11:00:00 Katya Ayoub [facility] CHOLESTEROLU[facility] TRIGLYCERIDES, HDL) CBC WITH DIFF 2021-09-09 11:00:00 Lance Solis [facility] N-TERMINAL PRO-BNP 2021-09-09 11:00[facility]00 [facility] 2021-09-09 03:38:00 [facility]) 2021-09-08 23:10:00 Jere Woodward Uni [facility] POCT GLUCOSE (AUTOMATED) 2021-09-08 17:41:00 Jere Woodward Uni [facility] POCT GLUCOSE (AUTOMATED) 2021-09-08 13:46:00 Jere Woodward Uni [facility] POCT GLUCOSE (AUTOMATED) 2021-09-08 03:01:00 Jere Woodward [facility] POCT GLUCOSE (AUTOMATED) 2021-09-07 22:41:00 Jere Woodward Uni [facility] POCT GLUCOSE (AUTOMATED) 2021-09-07 18:09:00 Jere Woodward Uni [facility] POCT GLUCOSE (AUTOMATED) 2021-09-07 14:17:00 [facility] BASIC METABOLIC PANEL (NA, 2021-09-07 11:30:00 Lance Solis [facility] K, CL, CO2, GLUCOSE, BUN, Medica l Branch CREATININE, CA) CBC WITH DIFF 2021-09-07 11:30:00 Lance Solis [facility] POCT GLUCOSE (AUTOMATED) 2021-09-07 03:00:00 Jere Woodward [facility] POCT GLUCOSE (AUTOMATED) 2021-09-07 01:32:00 Jere Woodward [facility] POCT GLUCOSE (AUTOMATED) 2021-09-06 22:54:00 Jere Woodward [facility] POCT GLUCOSE (AUTOMATED) 2021-09-06 17:37:00 Jere Woodward [facility] EXTRA TUBE URINE CULTURE 2021-09-06 14:38:00 Larry Martinez [facility] URINALYSIS MICROSCOPIC 2021-09-06 14:35:00 James Romeo [facility] CREATININE, URINE RANDOM 2021-09-06 14:35:00 James Romeo [facility] UREA NITROGEN, URINE 2021-09-06 14:35:00 James Romeo [facility] POCT GLUCOSE (AUTOMATED) 2021-09-06 13:47:00 Jere Woodward [facility] PHOSPHORUS 2021-09-06 08:42:00 Jere Woodward [facility] MAGNESIUM 2021-09-06 08:42:00 James Romeo [facility] TROPONIN I 2021-09-06 08:42:00 Jere Woodward [facility] BASIC METABOLIC PANEL (NA, 2021-09-06 08:42:00 James Romeo U [facility] K, CL, CO2, GLUCOSE, BUN, Medica Branch CREATININE, CA) CBC WITH DIFF 2021-09-06 08:42:00 Lance Solis [facility] US ABDOMINAL AORTA SCREEN 2021-09-06 02:52:00 Lance Solis [facility] POCT GLUCOSE (AUTOMATED) 2021-09-06 02:49:00 Jere Woodward [facility] POCT GLUCOSE (AUTOMATED) 2021-09-05 22:13:00 Jere Woodward [facility] VANCOMYCIN RANDOM LEVEL 2021-09-05 22:08:00 Mahogany Rodriguez [facility] POCT GLUCOSE (AUTOMATED) 2021-09-05 17:39:00 Jere Woodward [facility] BASIC METABOLIC PANEL (NA, 2021-09-05 16:12:00 [facility] K, CL, CO2, GLUCOSE, BUN, Medica l Branch CREATININE, CA) N-TERMINAL PRO-BNP 2021-09-05 16:12:00 Jose [facility] POCT GLUCOSE (AUTOMATED) 2021-09-05 13:34:00 Jere Woodward [facility] POCT GLUCOSE (AUTOMATED) 2021-09-05 02:03:00 Jere Woodward [facility] POCT GLUCOSE (AUTOMATED) 2021-09-04 23:20:00 Jere Woodward [facility] RESPIRATORY PANEL BY PCR 2021-09-04 20:58:00 Mahogany Rodriguez [facility] CT ABDOMEN PELVIS WO 2021-09-04 20:44:03 Mahogany Rodriguez [facility] POCT GLUCOSE (AUTOMATED) 2021-09-04 17:38:00 Jere Woodward [facility] MRSA / MSSA SCREEN BY PCR, 2021-09-04 16:15:00 Leanne Gannon [facility] POCT GLUCOSE (AUTOMATED) 2021-09-04 13:38:00 Jere Woodward [facility] TROPONIN I 2021-09-04 10:42:00 Deborah Bearden [facility] BASIC METABOLIC PANEL (NA, 2021-09-04 10:42:00 Jere Woodward [facility] K, CL, CO2, GLUCOSE, BUN, Medica l Branch CREATININE, CA) CBC WITH DIFF 2021-09-04 10:42:00 Jere Woodward [facility] N-TERMINAL PRO-BNP 2021-09-04 10:42:00 Deborah Bearden [facility] BLOOD CULTURE SCREEN 2021-09-04 05:37:00 [facility] PROCALCITONIN 2021-09-04 05:37:00 Monisha carolina [facility] POCT GLUCOSE (AUTOMATED) 2021-09-04 02:44:00 Jere Woodward [facility] POCT GLUCOSE (AUTOMATED) 2021-09-04 01:30:00 Jere Woodward [facility] URINALYSIS 2021-09-03 22:57:00 Gennaro Mirella [facility] URINE CULTURE 2021-09-03 22:57:00 Gennaro [facility] POCT GLUCOSE (AUTOMATED) 2021-09-03 22:52:00 Jere Woodward [facility] US RETROPERITONEAL 2021-09-03 17:48:51 [facility]unice [facility]) 2021-09-03 17:27:00 Jere Woodward [facility] TRANSTHORACIC ECHO (TTE) 2021-09-03 15:58:00 Mirella Burdick [facility] POCT GLUCOSE (AUTOMATED) 2021-09-03 14:12:00 Jere Woodward [facility] ACUTE CARE VENOUS BLOOD 2021-09-03 10:38:00 Deborah Bearden [facility] VITAMIN B12, LEVEL 2021-09-03 09:39:00 Gennaro Mirellasugar [facility] URIC ACID 2021-09-03 09:38:00 Deborah Bearden [facility] MAGNESIUM 2021-09-03 09:38:00 Jere Woodward [facility] TROPONIN I 2021-09-03 09:38:00 Gennaro Mirellasugar [facility] BASIC METABOLIC PANEL (NA, 2021-09-03 09:38:00 Jere Woodward [facility] K, CL, CO2, GLUCOSE, BUN, Medica l Branch CREATININE, CA) CBC WITH DIFF 2021-09-03 09:38:00 Jere Woodward [facility] N-TERMINAL PRO-BNP 2021-09-03 09:38:00 Monisha carolina [facility] FREE T3 2021-09-03 09:38:00 Gennaro Mirella [facility] PHOSPHORUS 2021-09-03 02:38:00 Jere Woodward [facility] URIC ACID 2021-09-03 02:38:00 Monisha [facility] TROPONIN I 2021-09-03 02:38:00 Gennaro [facility] POCT GLUCOSE (AUTOMATED) 2021-09-02 22:48:00 Jere Woodward [facility] POCT GLUCOSE (AUTOMATED) 2021-09-02 21:32:00 Jere Woodward [facility] ACUTE CARE ARTERIAL BLOOD 2021-09-02 16:56:00 Quinn Ibarra [facility] GAS [facility] XR CHEST 1 VW 2021-09-02 16:29:28 Quinn Ibarra [facility] RAPID INFLUENZA A/B 2021-09-02 15:40:00 Quinn Ibarra [facility] COVID-19 (ID NOW RAPID 2021-09-02 15:38:00 Quinn Ibarra [facility] TESTING) Medical Branch LAB ONLY COVID 2021-09-02 15:38:00 Quinn Ibarra [facility] INTERPRETATION [facility] BLOOD CULTURE SCREEN 2021-09-02 15:32:00 [facility] 2021-09-02 15:32:00 Quinn Ibarra [facility] FERRITIN SERUM 2021-09-02 15:32:00 Gennaro Mirellasugar [facility] TROPONIN I 2021-09-02 15:32:00 Quinn Ibarra [facility] FREE T4 2021-09-02 15:32:00 Gennaro Mirella [facility] THYROID STIMULATING 2021-09-02 15:32:00 [facility] COMP. METABOLIC PANEL 2021-09-02 15:32:00 Quinn Ibarra [facility] ([id number]) [facility] IRON PANEL 2021-09-02 15:32:00 Mirella Burdick [facility] CBC WITH DIFF 2021-09-02 15:32:00 Quinn Ibarra [facility] GLYCOSYLATED HEMOGLOBIN 2021-09-02 15:32:00 Gennaro [facility] (A1C) [facility] PROTHROMBIN TIME / INR 2021-09-02 15:32:00 Quinn Ibarra [facility] ACTIVATED PARTIAL THRMPLAS 2021-09-02 15:32:00 Quinn Ibarra [facility] N-TERMINAL PRO-BNP 2021-09-02 15:32:00 Quinn Ibarra [facility] PROCALCITONIN 2021-09-02 15:32:00 Mirella Burdick [facility] BLOOD CULTURE WORKUP 2021-09-02 15:32:00 Quinn Ibarra [facility] HB ECG ROUTINE & RHYTHM 2021-09-02 15:16:43 [facility] Start End Encounter Admission Attending Care Care Encounter Source Date/Time Date/Time Type Type Clinicians Facility Department ID 2021-09-05 [facility] [id number] Common 12:23:38 [id number] [facility] 2021-09-05 Out[facility] [id number] Common 12:15:10 [id number] [facility] 2021-10-11 2021-10-11 Orders Doctor HANNAH [id number] Univers 00:00:00 00:00:00 Only Unassigned, CLAIR [id number] [facility] [place] [facility] [id number] Naresh as [id number] [place] [address] Branch 2021-09-12 2021-09-12 Transition [facility] [place] [id number] Univers 00:00:00 00:00:00 of Care Hemanth AMAYA [id number] ity BLADIMIR 4.2.7.2.686 [facility] [id number] [facility] [address] Branch 2021-09-02 2021-09-11 Inpatient X [facility] [id number] Univers 09:15:00 18:12:00 JERE ity [facility] 2021-09-02 2021-09-11 [facility] Quinn Ibarra [facility] [id number] [id number] Univers 09:15:00 18:12:00 Encounter Jere Woodward [id number] ity NOHELIA [id number] [facility] [id number] [facility] 081 Branch 2020-08-02 2020-08-02 (TEL) STLMLC STLMLC [id number] Co mmon 00:00:00 00:00:00 [facility] 2020-07-31 2020-07-31 OFFICE STLMLC STLMLC [id number] Co mmon 00:00:00 00:00:00 VISIT [facility] PT LEVEL 4 [facility] Results Test Description Test Time Test Comments Results Result Comments Source POCT GLUCOSE (AUTOMATED) 2021-09-11 17:56:19 Test Item Value Reference Range Interpretation Comme nts POCT GLU (test code = 5125717616) 143 mg/dL 70-110 H Lab Interpretation (test code = 89746-0) [facility]2021-09-11 14:31:01 Test Item Value Reference Range Interpretation Comments POCT GLU (test code = 3043737811) 140 mg/dL 70-110 H Lab Interpretation (test code = Abnormal 79868-9) [facility] (NA, K, CL, CO2, GLUCOSE, BUN, CREATININE, CA)2021-09-11 11:27:07 Test Item Value Reference Range Interpretation Comments NA (test code = 142 mmol/L 135-145 5399670208) K (test code = 4.7 mmol/L 3.5-5.0 9402107496) CL (test code = 116 mmol/L 98-108 H 3513384294) CO2 TOTAL (test code = 21 mmol/L 23-31 L 8259809327) AGAP (test code = 2-16 1765411485) BUN (test code = 53 mg/dL 7-23 H 3795720160) GLUCOSE (test code = 126 mg/dL 70-110 H 4513517889) CREATININE (test code = 2.92 mg/dL 0.60-1.25 H 9042831660) CALCIUM (test code = 8.8 mg/dL 8.6-10.6 2756354959) eGFR (test code = mL/min/1.73m2 7251237617) RADHA (test code = RADHA) Association of [...] tests). Lab Interpretation Abnormal (test code = 41353-5) [facility] WITH [id number] 11:10:42 Test Item Value Reference Range Interpretation [...] (test code = 52.9 fL 38.5-51.6 H 56257-2) RDW-CV (test code = 15.3 % 12.1-15.4 788-0) PLT (test code = See_Comment [Automated 777-3) message] The sy stem which generated this result transmitted reference range : 150 - 328 10*3/ ?L. The reference r hilary was not used to interpret this result as normal/abnormal . MPV (test code = 10.4 fL 9.8-13.0 57589-4) NRBC/100 WBC (test See_Comment [Automat ed code = 2902464973) message] The system which generated this result transmitted reference range : 0.0 - 10.0 /100 WBCs. The refer ence range was not u sed to interpret th is result as normal/abnormal . NRBC x10^3 (test code <0.01 See_Comment [Auto mated = 4414531486) message] The s ystem which generated this result transmitted reference range : 10*3/?L. The reference range was not used to interpret this result as normal/abnormal . GRAN MAT (NEUT) % 77.5 % (test code = 770-8) IMM GRAN % (test code 0.50 % = 8649728760) LYMPH % (test code = 15.6 % 736-9) MONO % (test code = 5.5 % 5905-5) EOS % (test code = 0.9 % 713-8) BASO % (test code = 0.0 % 706-2) GRAN MAT x10^3(ANC) 4.93 10*3/uL 1.99-6.95 (test code = 7566380073) IMM GRAN x10^3 (test 0.03 10*3/uL 0.00-0.06 code = 9224965867) LYMPH x10^3 (test code 0.99 10*3/uL 1.09-3.23 L = 731-0) MONO x10^3 (test code 0.35 10*3/uL 0.36-1.02 L = 742-7) EOS x10^3 (test code = 0.06 10*3/uL 0.06-0.53 711-2) BASO x10^3 (test code <0.03 0.01-0.09 = 704-7) Lab Interpretation Abnormal (test code = 97073-9) [facility] GLUCOSE (AUTOMATED)2021-09-11 02:38:30 Test Item Value Reference Range Interpretation Comments POCT GLU (test code = 0689522217) 195 mg/dL 70-110 H Lab Interpretation (test code = Abnormal 78402-1) [facility] GLUCOSE (AUTOMATED)2021-09-10 23:44:28 Test Item Value Reference Range Interpretation Comments POCT GLU (test code = 1248037641) 147 mg/dL 70-110 H Lab Interpretation (test code = Abnormal 98614-5) [facility] GLUCOSE (AUTOMATED)2021-09-10 18:03:55 Test Item Value Reference Range Interpretation Comments POCT GLU (test code = 8585570049) 162 mg/dL 70-110 H Lab Interpretation (test code = Abnormal 36662-2) [facility] (03337)(TOTAL CHOLESTEROL, TRIGLYCERIDES, HDL)2021-09-10 16:55:36 Test Item Value Reference Range Interpretation Comments CHOL (test code = 93 mg/dL 120-200 L 7274411458) HDL (test code = 56 mg/dL >40 1093648728) HDLC RATIO (test code = See_Comment [Au tomated message] 2873731502) The system [employer] generated this result transmitted ref erence range: <=5.0. T he reference range was not used to int erpret this result as normal/abnormal . TRIG (test code = 85 mg/dL 30-170 5440707956) LDL CHOL (test code = 20 mg/dL See_Comment [Auto mated message] 46632-1) The system [employer] generated this result transmitted ref erence range: <=160. T he reference range was not used to int erpret this result as normal/abnormal . VLDL (test code = 17 mg/dL 5-60 5125124220) Lab Interpretation (test Abnormal code = 12962-2) [facility] GLUCOSE (AUTOMATED)2021-09-10 14:34:31 Test Item Value Reference Range Interpretation Comments POCT GLU (test code = 9636336874) 150 mg/dL 70-110 H Lab Interpretation (test code = Abnormal 92476-0) [facility] GLUCOSE (AUTOMATED)2021-09-10 03:18:02 Test Item Value Reference Range Interpretation Comments POCT GLU (test code = 4492997455) 163 mg/dL 70-110 H Lab Interpretation (test code = Abnormal 87128-5) [facility] GLUCOSE (AUTOMATED)2021-09-09 23:22:00 Test Item Value Reference Range Interpretation Comments POCT GLU (test code = 7605250145) 153 mg/dL 70-110 H Lab Interpretation (test code = Abnormal 97776-2) [facility] [id number] 20:42:21 Test Item Value Reference Range Interpretation Comments NT-proBNP (test code 3860 pg/mL See_Comment H [Autom ated = 5149762652) message] The system which generated this result transmitted reference range : <=450. The reference range was not used to interpret this result as normal/abnormal . RADHA (test code = RADHA) Biotin has been reported to cause a negative bias, interpret results relative to patient's use of biotin. Lab Interpretation Abnormal (test code = 74644-9) [facility] GLUCOSE (AUTOMATED)2021-09-09 17:29:37 Test Item Value Reference Range Interpretation Comments POCT GLU (test code = 9794382469) 121 mg/dL 70-110 H Lab Interpretation (test code = Abnormal 30865-1) [facility] GLUCOSE (AUTOMATED)2021-09-09 13:54:41 Test Item Value Reference Range Interpretation Comments POCT GLU (test code = 7409248874) 118 mg/dL 70-110 H Lab Interpretation (test code = Abnormal 10107-1) [facility] METABOLIC PANEL (NA, K, CL, CO2, GLUCOSE, BUN, CREATININE, CA)2021-09-09 13:01:38 Test Item Value Reference Range Interpretation Comments NA (test code = 141 mmol/L 135-145 3879986539) K (test code = 4.7 mmol/L 3.5-5.0 9119985941) CL (test code = 115 mmol/L 98-108 H 2992721314) CO2 TOTAL (test code = 22 mmol/L 23-31 L 2738067337) AGAP (test code = 2-16 7614528701) BUN (test code = 59 mg/dL 7-23 H 8641498861) GLUCOSE (test code = 114 mg/dL 70-110 H 0256570083) CREATININE (test code = 3.09 mg/dL 0.60-1.25 H 1890594593) CALCIUM (test code = 8.9 mg/dL 8.6-10.6 4681765467) eGFR (test code = mL/min/1.73m2 0112014465) RADHA (test code = RADHA) Association of [...] tests). Lab Interpretation Abnormal (test code = 85110-5) [facility] WITH [id number] 12:42:15 Test Item Value Reference Range Interpretation Comments WBC (test code = See_Comment [Automated 1990-2) message] The sy stem which generated this [...] (test code = 52.5 fL 38.5-51.6 H 81927-3) RDW-CV (test code = 15.1 % 12.1-15.4 788-0) PLT (test code = See_Comment [Automated 777-3) message] The sy stem which generated this result transmitted reference range : 150 - 328 10*3/ ?L. The reference r hilary was not used to interpret this result as normal/abnormal . MPV (test code = 10.5 fL 9.8-13.0 50589-2) NRBC/100 WBC (test See_Comment [Automat ed code = 6780752861) message] The system which generated this result transmitted reference range : 0.0 - 10.0 /100 WBCs. The refer ence range was not u sed to interpret th is result as normal/abnormal . NRBC x10^3 (test code <0.01 See_Comment [Auto mated = 1182079619) message] The s ystem which generated this result transmitted reference range : 10*3/?L. The reference range was not used to interpret this result as normal/abnormal . GRAN MAT (NEUT) % 81.8 % (test code = 770-8) IMM GRAN % (test code 0.50 % = 8733902802) LYMPH % (test code = 13.0 % 736-9) MONO % (test code = 4.3 % 5905-5) EOS % (test code = 0.4 % 713-8) BASO % (test code = 0.0 % 706-2) GRAN MAT x10^3(ANC) 6.71 10*3/uL 1.99-6.95 (test code = 2120714269) IMM GRAN x10^3 (test 0.04 10*3/uL 0.00-0.06 code = 7846390462) LYMPH x10^3 (test code 1.07 10*3/uL 1.09-3.23 L = 731-0) MONO x10^3 (test code 0.35 10*3/uL 0.36-1.02 L = 742-7) EOS x10^3 (test code = 0.03 10*3/uL 0.06-0.53 L 711-2) BASO x10^3 (test code <0.03 0.01-0.09 = 704-7) Lab Interpretation Abnormal (test code = 54332-9) [facility] [id number] 06:01:53 Test Item Value Reference Range Interpretation Comments Blood Culture-Aerobic No organisms No growth Previo us (test code = 74340-8) isolated prelim inary verified result was Culture In Progress on 09/04/2021 at 03 01 CSTPrevious preliminary verified result was No growth a t 24 hours on 09/05/2021 at 00 01 CSTPrevious preliminary verified result was No growth a t 48 hours on 09/06/2021 at 00 01 CSTPrevious preliminary verified result was No growth a t 72 hours on 09/07/2021 at 00 01 [employer] Blood No organisms No growth Previous Culture-Anaerobic isolated preliminar y (test code = 61508-3) verifi ed result was Culture In Progress on 09/04/2021 at 03 01 CSTPrevious preliminary verified result was No growth a t 24 hours on 09/05/2021 at 00 01 CSTPrevious preliminary verified result was No growth a t 48 hours on 09/06/2021 at 00 01 CSTPrevious preliminary verified result was No growth a t 72 hours on 09/07/2021 at 00 01 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 Normal (test code = 27338-1) [facility] [id number] 06:01:53 Test Item Value Reference Range Interpretation Comments Blood Culture-Aerobic No organisms No growth Previo us (test code = 80376-9) isolated prelim inary verified result was Culture In Progress on 09/04/2021 at 03 01 CSTPrevious preliminary verified result was No growth a t 24 hours on 09/05/2021 at 00 01 CSTPrevious preliminary verified result was No growth a t 48 hours on 09/06/2021 at 00 01 CSTPrevious preliminary verified result was No growth a t 72 hours on 09/07/2021 at 00 01 WO[employer] Blood No organisms No growth Previous Culture-Anaerobic isolated preliminar y (test code = 97007-4) verifi ed result was Culture In Progress on 09/04/2021 at 03 01 CSTPrevious preliminary verified result was No growth a t 24 hours on 09/05/2021 at 00 01 CSTPrevious preliminary verified result was No growth a t 48 hours on 09/06/2021 at 00 01 CSTPrevious preliminary verified result was No growth a t 72 hours on 09/07/2021 at 00 01 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 Normal (test code = 55374-3) [facility]2021-09-09 03:41:10 Test Item Value Reference Range Interpretation Comments POCT GLU (test code = 5538389549) 196 mg/dL 70-110 H Lab Interpretation (test code = Abnormal 33763-6) [facility] GLUCOSE (AUTOMATED)2021-09-08 23:12:05 Test Item Value Reference Range Interpretation Comments POCT GLU (test code = 0508463680) 138 mg/dL 70-110 H Lab Interpretation (test code = Abnormal 07101-0) [facility] GLUCOSE (AUTOMATED)2021-09-08 17:46:12 Test Item Value Reference Range Interpretation Comments POCT GLU (test code = 6050559444) 181 mg/dL 70-110 H Lab Interpretation (test code = Abnormal 22785-2) [facility] GLUCOSE (AUTOMATED)2021-09-08 13:53:55 Test Item Value Reference Range Interpretation Comments POCT GLU (test code = 9678384153) 179 mg/dL 70-110 H Lab Interpretation (test code = Abnormal 34068-0) [facility] GLUCOSE (AUTOMATED)2021-09-08 03:04:37 Test Item Value Reference Range Interpretation Comments POCT GLU (test code = 3454048746) 241 mg/dL 70-110 H Lab Interpretation (test code = Abnormal 38275-9) [facility] GLUCOSE (AUTOMATED)2021-09-07 23:44:53 Test Item Value Reference Range Interpretation Comments POCT GLU (test code = 9600326571) 268 mg/dL 70-110 H Lab Interpretation (test code = Abnormal 44903-1) [facility] GLUCOSE (AUTOMATED)2021-09-07 19:18:14 Test Item Value Reference Range Interpretation Comments POCT GLU (test code = 6224116918) 208 mg/dL 70-110 H Lab Interpretation (test code = Abnormal 92218-6) [facility] [place], [place] Culture - Peripheral # [id number] 16:02:10 Test Item Value Reference Range Interpretation Comments Blood Culture-Aerobic No organisms No growth Previo us (test code = 89547-2) isolated prelim inary verified result was Culture In Progress on 09/02/2021 at 13 02 CSTPrevious preliminary verified result was No growth a t 24 hours on 09/03/2021 at 10 01 CSTPrevious preliminary verified result was No growth a t 48 hours on 09/04/2021 at 10 01 CSTPrevious preliminary verified result was No growth a t 72 hours on 09/05/2021 at 10 01 [employer] Blood No organisms No growth Previous Culture-Anaerobic isolated preliminar y (test code = 28528-0) verifi ed result was Culture In Progress on 09/02/2021 at 13 02 CSTPrevious preliminary verified result was No growth a t 24 hours on 09/03/2021 at 10 01 CSTPrevious preliminary verified result was No growth a t 48 hours on 09/04/2021 at 10 01 CSTPrevious preliminary verified result was No growth a t 72 hours on 09/05/2021 at 10 01 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 Normal (test code = 74131-9) [facility] 15:05:58 Test Item Value Reference Range Interpretation Comments POCT GLU (test code = 4716691840) 158 mg/dL 70-110 H Lab Interpretation (test code = Abnormal 11429-8) [facility] (NA, K, CL, CO2, GLUCOSE, BUN, CREATININE, CA)2021-09-07 12:31:00 Test Item Value Reference Range Interpretation Comments NA (test code = 140 mmol/L 135-145 0564046709) K (test code = 4.9 mmol/L 3.5-5.0 5265286977) CL (test code = 113 mmol/L 98-108 H 5658294593) CO2 TOTAL (test code = 22 mmol/L 23-31 L 9480876428) AGAP (test code = 2-16 3370841806) BUN (test code = 51 mg/dL 7-23 H 3016451174) GLUCOSE (test code = 179 mg/dL 70-110 H 2830010323) CREATININE (test code = 2.98 mg/dL 0.60-1.25 H 2387666170) CALCIUM (test code = 9.0 mg/dL 8.6-10.6 4684053253) eGFR (test code = mL/min/1.73m2 3016706213) RADHA (test code = RADHA) Association of [...] tests). Lab Interpretation Abnormal (test code = 54042-6) [facility] WITH [id number] 12:23:57 Test Item Value Reference Range Interpretation Comments WBC (test code = See_Comment [Automated 9563-2) message] The sy stem which generated this result transmitted reference range : 4.20 - 10.70 10*3/?L. The reference range was not used to interpret this result as normal/abnormal . RBC (test code = See_Comment L [Automated 604-8) message] The sy stem which generated this [...] (test code = 51.8 fL 38.5-51.6 H 96462-1) RDW-CV (test code = 14.9 % 12.1-15.4 788-0) PLT (test code = See_Comment [Automated 777-3) message] The sy stem which generated this result transmitted reference range : 150 - 328 10*3/ ?L. The reference r hilary was not used to interpret this result as normal/abnormal . MPV (test code = 10.1 fL 9.8-13.0 22586-0) NRBC/100 WBC (test See_Comment [Automat ed code = 5451482299) message] The system which generated this result transmitted reference range : 0.0 - 10.0 /100 WBCs. The refer ence range was not u sed to interpret th is result as normal/abnormal . NRBC x10^3 (test code <0.01 See_Comment [Auto mated = 5738667865) message] The s ystem which generated this result transmitted reference range : 10*3/?L. The reference range was not used to interpret this result as normal/abnormal . GRAN MAT (NEUT) % 88.6 % (test code = 770-8) IMM GRAN % (test code 0.40 % = 3144580948) LYMPH % (test code = 7.1 % 736-9) MONO % (test code = 3.8 % 5905-5) EOS % (test code = 0.0 % 713-8) BASO % (test code = 0.1 % 706-2) GRAN MAT x10^3(ANC) 6.02 10*3/uL 1.99-6.95 (test code = 6809086133) IMM GRAN x10^3 (test 0.03 10*3/uL 0.00-0.06 code = 8250616669) LYMPH x10^3 (test code 0.48 10*3/uL 1.09-3.23 L = 731-0) MONO x10^3 (test code 0.26 10*3/uL 0.36-1.02 L = 742-7) EOS x10^3 (test code = <0.03 0.06-0.53 L 711-2) BASO x10^3 (test code <0.03 0.01-0.09 = 704-7) Lab Interpretation Abnormal (test code = 59264-8) [facility] GLUCOSE (AUTOMATED)2021-09-07 03:05:46 Test Item Value Reference Range Interpretation Comments POCT GLU (test code = 5896507605) 235 mg/dL 70-110 H Lab Interpretation (test code = Abnormal 59090-8) [facility] GLUCOSE (AUTOMATED)2021-09-07 01:42:32 Test Item Value Reference Range Interpretation Comments POCT GLU (test code = 2430070028) 291 mg/dL 70-110 H Lab Interpretation (test code = Abnormal 77346-9) [facility] GLUCOSE (AUTOMATED)2021-09-06 22:58:03 Test Item Value Reference Range Interpretation Comments POCT GLU (test code = 0832004892) 291 mg/dL 70-110 H Lab Interpretation (test code = Abnormal 20709-4) [facility] GLUCOSE (AUTOMATED)2021-09-06 17:52:21 Test Item Value Reference Range Interpretation Comments POCT GLU (test code = 5160560367) 185 mg/dL 70-110 H Lab Interpretation (test code = Abnormal 70448-8) [facility] GLUCOSE (AUTOMATED)2021-09-06 14:03:24 Test Item Value Reference Range Interpretation Comments POCT GLU (test code = 3658086433) 131 mg/dL 70-110 H Lab Interpretation (test code = Abnormal 98997-8) [facility] WITH [id number] 09:20:33 Test Item Value Reference Range Interpretation Comments WBC (test code = See_Comment [Automated 6690-2) message] The sy stem which generated this result transmitted reference range : 4.20 - 10.70 10*3/?L. The reference range was not used to interpret this result as normal/abnormal . RBC (test code = See_Comment L [Automated 539-8) message] The sy stem which generated this [...] (test code = 53.1 fL 38.5-51.6 H 24751-5) RDW-CV (test code = 15.1 % 12.1-15.4 788-0) PLT (test code = See_Comment [Automated 777-3) message] The sy stem which generated this result transmitted reference range : 150 - 328 10*3/ ?L. The reference r hilary was not used to interpret this result as normal/abnormal . MPV (test code = 10.0 fL 9.8-13.0 02551-6) NRBC/100 WBC (test See_Comment [Automat ed code = 6659802690) message] The system which generated this result transmitted reference range : 0.0 - 10.0 /100 WBCs. The refer ence range was not u sed to interpret th is result as normal/abnormal . NRBC x10^3 (test code <0.01 See_Comment [Auto mated = 4686331817) message] The s ystem which generated this result transmitted reference range : 10*3/?L. The reference range was not used to interpret this result as normal/abnormal . GRAN MAT (NEUT) % 85.6 % (test code = 770-8) IMM GRAN % (test code 0.70 % = 1428262511) LYMPH % (test code = 8.9 % 736-9) MONO % (test code = 4.7 % 5905-5) EOS % (test code = 0.0 % 713-8) BASO % (test code = 0.1 % 706-2) GRAN MAT x10^3(ANC) 6.55 10*3/uL 1.99-6.95 (test code = 5066438150) IMM GRAN x10^3 (test 0.05 10*3/uL 0.00-0.06 code = 3967327844) LYMPH x10^3 (test code 0.68 10*3/uL 1.09-3.23 L = 731-0) MONO x10^3 (test code 0.36 10*3/uL 0.36-1.02 = 742-7) EOS x10^3 (test code = <0.03 0.06-0.53 L 711-2) BASO x10^3 (test code <0.03 0.01-0.09 = 704-7) Lab Interpretation Abnormal (test code = 49943-4) [facility] [id number] 09:14:11 Test Item Value Reference Interpretation Comments Range TROPONIN I (test 0.061 ng/mL See_Comment H [Automated code = 8653043974) message] The system which generated this result [...] biotin. Lab Interpretation Abnormal (test code = 24285-3) [facility]2022-[facility]-27 09:02:46 Test Item Value Reference Range Interpretation Comments MAGNESIUM (test code = 1661383815) 2.0 mg/dL 1.7-2.4 Lab Interpretation (test code = Normal 63861-2) [facility] (NA, K, CL, CO2, GLUCOSE, BUN, CREATININE, CA)2021-09-06 09:02:26 Test Item Value Reference Range Interpretation Comments NA (test code = 138 mmol/L 135-145 6122920674) K (test code = 5.2 mmol/L 3.5-5.0 H 1918680409) CL (test code = 112 mmol/L 98-108 H 0221574056) CO2 TOTAL (test code = 21 mmol/L 23-31 L 1053566373) AGAP (test code = 2-16 6127805914) BUN (test code = 51 mg/dL 7-23 H 7372750599) GLUCOSE (test code = 137 mg/dL 70-110 H 8937199501) CREATININE (test code = 3.15 mg/dL 0.60-1.25 H 0494574419) CALCIUM (test code = 9.1 mg/dL 8.6-10.6 1627340730) eGFR (test code = mL/min/1.73m2 0895363262) RADHA (test code = RADHA) Association of [...] tests). Lab Interpretation Abnormal (test code = 60757-1) [facility]2022-01-27 09:02:26 Test Item Value Reference Range Interpretation Comments PHOSPHORUS (test code = 5453859876) 3.4 mg/dL 2.5-5.0 Lab Interpretation (test code = Normal 23995-9) [facility] GLUCOSE (AUTOMATED)2021-09-06 02:58:54 Test Item Value Reference Range Interpretation Comments POCT GLU (test code = 5151928473) 229 mg/dL 70-110 H Lab Interpretation (test code = Abnormal 59404-0) [facility] HospitalVancomycin Random [id number] 23:36:47 Test Item Value Reference Range Interpretation Comments VANCO RANDOM (test code = 7.6 ug/mL 5107744884) [facility] GLUCOSE (AUTOMATED)2021-09-05 22:23:59 Test Item Value Reference Range Interpretation Comments POCT GLU (test code = 3617522679) 307 mg/dL 70-110 H Lab Interpretation (test code = Abnormal 24675-5) [facility] GLUCOSE (AUTOMATED)2021-09-05 17:43:53 Test Item Value Reference Range Interpretation Comments POCT GLU (test code = 5584957102) 133 mg/dL 70-110 H Lab Interpretation (test code = Abnormal 68602-9) [facility]AL [id number] 17:02:17 Test Item Value Reference Range Interpretation Comments NT-proBNP (test code 4570 pg/mL See_Comment H [Autom ated = 8222802337) message] The system which generated this result transmitted reference range : <=450. The reference range was not used to interpret this result as normal/abnormal . RADHA (test code = RADHA) Biotin has been reported to cause a negative bias, interpret results relative to patient's use of biotin. Lab Interpretation Abnormal (test code = 56383-2) [facility] (NA, K, CL, CO2, GLUCOSE, BUN, CREATININE, CA)2021-09-05 16:53:35 Test Item Value Reference Range Interpretation Comments NA (test code = 138 mmol/L 135-145 4554908645) K (test code = 4.8 mmol/L 3.5-5.0 4369156262) CL (test code = 110 mmol/L 98-108 H 0852462943) CO2 TOTAL (test code = 23 mmol/L 23-31 2385199807) AGAP (test code = 2-16 7451927197) BUN (test code = 50 mg/dL 7-23 H 3903629295) GLUCOSE (test code = 106 mg/dL 70-110 8183053879) CREATININE (test code = 3.36 mg/dL 0.60-1.25 H 7743462481) CALCIUM (test code = 8.9 mg/dL 8.6-10.6 9291031740) eGFR (test code = mL/min/1.73m2 8052177583) RADHA (test code = RADHA) Association of [...] tests). 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 No growth AA Previous Culture-Anaerobic See Blood Culture preli minary (test code = 33173-4) Workup for verifi ed result additional was Culture In information. 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 Abnormal (test code = 55696-6) [facility] GLUCOSE (AUTOMATED)2021-09-05 13:47:13 Test Item Value Reference Range Interpretation Comments POCT GLU (test code = 6501222774) 116 mg/dL 70-110 H Lab Interpretation (test code = Abnormal 63816-7) [facility] GLUCOSE (AUTOMATED)2021-09-05 02:37:48 Test Item Value Reference Range Interpretation Comments POCT GLU (test code = 5659853488) 238 mg/dL 70-110 H Lab Interpretation (test code = Abnormal 07508-0) [facility] GLUCOSE (AUTOMATED)2021-09-04 23:23:12 Test Item Value Reference Range Interpretation Comments POCT GLU (test code = 6276295952) 211 mg/dL 70-110 H Lab Interpretation (test code = Abnormal 37425-1) [facility]PROCALCITONIN2022-01-25 18:15:57 Test Item Value Reference Range Interpretation Comments Procalcitonin (test 0.11 ng/mL <0.07 H code = 5489237554) RADHA (test code = RADHA) INTERPRETATION OF [...] lung abscess/empyema. For further information please refer to:[email or web address] Lab Interpretation Abnormal (test code = 08859-1) [facility] GLUCOSE (AUTOMATED)2021-09-04 17:52:04 Test Item Value Reference Range Interpretation Comments POCT GLU (test code = 2063873325) 182 mg/dL 70-110 H Lab Interpretation (test code = Abnormal 25433-9) [facility] GLUCOSE (AUTOMATED)2021-09-04 13:47:06 Test Item Value Reference Range Interpretation Comments POCT GLU (test code = 0743845189) 170 mg/dL 70-110 H Lab Interpretation (test code = Abnormal 86755-2) [facility] HospitalTROP[facility]IN [id number] 12:23:39 Test Item Value Reference Interpretation Comments Range TROPONIN I (test 0.046 ng/mL See_Comment H [Automated code = 3198978579) message] The system which generated this result [...] biotin. Lab Interpretation Abnormal (test code = 54589-2) [facility] HospitalN-[facility]MINAL [id number] 12:20:23 Test Item Value Reference Range Interpretation Comments NT-proBNP (test code 6500 pg/mL See_Comment H [Autom ated = 0447310219) message] The system which generated this result transmitted reference range : <=450. The reference range was not used to interpret this result as normal/abnormal . RADHA (test code = RADHA) Biotin has been reported to cause a negative bias, interpret results relative to patient's use of biotin. Lab Interpretation Abnormal (test code = 34513-2) [facility] METABOLIC PANEL (NA, K, CL, CO2, GLUCOSE, BUN, CREATININE, CA)2021-09-04 12:12:37 Test Item Value Reference Range Interpretation Comments NA (test code = 137 mmol/L 135-145 7615797953) K (test code = 5.0 mmol/L 3.5-5.0 9337290889) CL (test code = 109 mmol/L 98-108 H 0520790452) CO2 TOTAL (test code = 21 mmol/L 23-31 L 6836739889) AGAP (test code = 2-16 3045107303) BUN (test code = 47 mg/dL 7-23 H 9748138005) GLUCOSE (test code = 192 mg/dL 70-110 H 3809865553) CREATININE (test code = 3.30 mg/dL 0.60-1.25 H 3306164709) CALCIUM (test code = 8.6 mg/dL 8.6-10.6 9445878496) eGFR (test code = mL/min/1.73m2 2787279489) RADHA (test code = RADHA) Association of [...] tests). Lab Interpretation Abnormal (test code = 77869-3) [facility] WITH [id number] 12:02:38 Test Item Value Reference Range Interpretation Comments WBC (test code = See_Comment H [Automated 6690-2) message] The system which generated this result transmit jose reference range : 4.20 - 10.70 10*3/?L. The reference range was not used to interpret this result as normal/abnormal . RBC (test code = See_Comment L [Automated 789-8) message] The system which generated this result [...] (test code = 53.5 fL 38.5-51.6 H 75069-4) RDW-CV (test code = 15.4 % 12.1-15.4 788-0) PLT (test code = See_Comment [Automated 777-3) message] The system which generated this result transmit jose reference range : 150 - 328 10*3/ ?L. The reference range was not u sed to interpret th is result as normal/abnormal . MPV (test code = 10.5 fL 9.8-13.0 81634-1) NRBC/100 WBC (test See_Comment [Automat ed code = 5436889820) message] The system which generated this result transmit jose reference range : 0.0 - 10.0 /100 WBCs. The reference range was not used to interpret this result as normal/abnormal . NRBC x10^3 (test code <0.01 See_Comment [Auto mated = 4887927037) message] The system which generated this result transmit jose reference range : 10*3/?L. The reference range was not used to interpret this result as normal/abnormal . GRAN MAT (NEUT) % 90.0 % (test code = 770-8) IMM GRAN % (test code 0.60 % = 6180619001) LYMPH % (test code = 5.0 % 736-9) MONO % (test code = 4.3 % 5905-5) EOS % (test code = 0.0 % 713-8) BASO % (test code = 0.1 % 706-2) GRAN MAT x10^3(ANC) 10.53 10*3/uL 1.99-6.95 H (test code = 0079879891) IMM GRAN x10^3 (test 0.07 10*3/uL 0.00-0.06 H code = 1621945733) LYMPH x10^3 (test code 0.58 10*3/uL 1.09-3.23 L = 731-0) MONO x10^3 (test code 0.50 10*3/uL 0.36-1.02 = 742-7) EOS x10^3 (test code = <0.03 0.06-0.53 L 711-2) BASO x10^3 (test code <0.03 0.01-0.09 = 704-7) Lab Interpretation Abnormal (test code = 78975-8) [facility]21-[facility]-04 11:55:48 Test Item Value Reference Range Interpretation Comments POCT GLU (test code = 6837752671) 189 mg/dL 70-110 H Lab Interpretation (test code = Abnormal 50710-8) [facility]2021-09-04 01:41:45 Test Item Value Reference Range Interpretation Comments POCT GLU (test code = 2496454197) 166 mg/dL 70-110 H Lab Interpretation (test code = Abnormal 54023-0) [facility] HospitalVITAMIN B12, [id number] 23:08:05 Test Item Value Reference Range Interpretation Comments VIT B12 (test code = >1000 240-930 H 6614178142) RADHA (test code = RADHA) Biotin has been reported to cause a positive bias, interpret results relative to patient's use of biotin. Lab Interpretation (test Abnormal code = 59995-4) [facility] GLUCOSE (AUTOMATED)2021-09-03 22:54:51 Test Item Value Reference Range Interpretation Comments POCT GLU (test code = 0544662394) 229 mg/dL 70-110 H Lab Interpretation (test code = Abnormal 87916-3) [facility] [id number] 17:34:51 Test Item Value Reference Range Interpretation Comments FREE T3 (test code = 8108705455) 2.41 pg/mL 2.77-5.27 L Lab Interpretation (test code = Abnormal 92614-9) [facility] GLUCOSE (AUTOMATED)2021-09-03 17:31:09 Test Item Value Reference Range Interpretation Comments POCT GLU (test code = 5112862967) 246 mg/dL 70-110 H Lab Interpretation (test code = Abnormal 67644-8) [facility] [id number] 17:00:47 Test Item Value Reference Range Interpretation Comments FREE T4 (test code = See_Comment [Autom ated message] 4839021849) The system [employer] generated this result transmitted ref erence range: 0.78 - 2 .20 ng/dL:. The ref erence range was not u sed to interpret this result as normal/abnor mal. Lab Interpretation (test Normal code = 08917-1) [facility] GLUCOSE (AUTOMATED)2021-09-03 14:17:24 Test Item Value Reference Range Interpretation Comments POCT GLU (test code = 3334551646) 232 mg/dL 70-110 H Lab Interpretation (test code = Abnormal 54382-5) [facility]TR[facility] [id number] 11:01:15 Test Item Value Reference Interpretation Comments Range TROPONIN I (test 0.035 ng/mL See_Comment H [Automated code = 3586275110) message] The system which generated this result [...] biotin. Lab Interpretation Abnormal (test code = 08770-3) [facility]AL [id number] 10:58:19 Test Item Value Reference Range Interpretation Comments NT-proBNP (test code 3920 pg/mL See_Comment H [Autom ated = 2980613535) message] The system which generated this result transmitted reference range : <=450. The reference range was not used to interpret this result as normal/abnormal . RADHA (test code = RADHA) Biotin has been reported to cause a negative bias, interpret results relative to patient's use of biotin. Lab Interpretation Abnormal (test code = 96336-6) [facility] HospitalMagnesium [id number] 10:50:15 Test Item Value Reference Range Interpretation Comments MAGNESIUM (test code = 9343160691) 2.1 mg/dL 1.7-2.4 Lab Interpretation (test code = Normal 98243-1) [facility] (NA, K, CL, CO2, GLUCOSE, BUN, CREATININE, CA)2021-09-03 10:49:54 Test Item Value Reference Range Interpretation Comments NA (test code = 140 mmol/L 135-145 1572088835) K (test code = 5.0 mmol/L 3.5-5.0 9173236587) CL (test code = 112 mmol/L 98-108 H 2093371771) CO2 TOTAL (test code = 21 mmol/L 23-31 L 7602553514) AGAP (test code = 2-16 4017196476) BUN (test code = 41 mg/dL 7-23 H 3856572966) GLUCOSE (test code = 205 mg/dL 70-110 H 8347635148) CREATININE (test code = 2.95 mg/dL 0.60-1.25 H 6288876627) CALCIUM (test code = 8.6 mg/dL 8.6-10.6 5998672628) eGFR (test code = mL/min/1.73m2 9722525122) RADHA (test code = RADHA) Association of [...] tests). Lab Interpretation Abnormal (test code = 84220-7) [facility] HospitalURIC [id number] 10:49:54 Test Item Value Reference Range Interpretation Comments URIC ACID (test code = 5397704659) 5.1 mg/dL 3.6-8.0 Lab Interpretation (test code = Normal 15998-8) [facility] HospitalCB with [id number] 10:06:10 Test Item Value Reference Range Interpretation [...] (test code = 53.0 fL 38.5-51.6 H 29383-0) RDW-CV (test code = 15.2 % 12.1-15.4 788-0) PLT (test code = See_Comment [Automated 777-3) message] The sy stem which generated this result transmitted reference range : 150 - 328 10*3/ ?L. The reference r hilary was not used to interpret this result as normal/abnormal . MPV (test code = 10.1 fL 9.8-13.0 57711-2) NRBC/100 WBC (test See_Comment [Automat ed code = 2625609316) message] The system which generated this result transmitted reference range : 0.0 - 10.0 /100 WBCs. The refer ence range was not u sed to interpret th is result as normal/abnormal . NRBC x10^3 (test code <0.01 See_Comment [Auto mated = 7849047422) message] The s ystem which generated this result transmitted reference range : 10*3/?L. The reference range was not used to interpret this result as normal/abnormal . GRAN MAT (NEUT) % 94.4 % (test code = 770-8) IMM GRAN % (test code 0.50 % = 6330172996) LYMPH % (test code = 4.2 % 736-9) MONO % (test code = 0.9 % 5905-5) EOS % (test code = 0.0 % 713-8) BASO % (test code = 0.0 % 706-2) GRAN MAT x10^3(ANC) 5.20 10*3/uL 1.99-6.95 (test code = 5451912310) IMM GRAN x10^3 (test 0.03 10*3/uL 0.00-0.06 code = 4649592198) LYMPH x10^3 (test code 0.23 10*3/uL 1.09-3.23 L = 731-0) MONO x10^3 (test code 0.05 10*3/uL 0.36-1.02 L = 742-7) EOS x10^3 (test code = <0.03 0.06-0.53 L 711-2) BASO x10^3 (test code <0.03 0.01-0.09 = 704-7) Lab Interpretation Abnormal (test code = 54927-3) [facility]UR[facility] [id number] 07:55:03 Test Item Value Reference Range Interpretation Comments URIC ACID (test code = 2142271157) 5.3 mg/dL 3.6-8.0 Lab Interpretation (test code = Normal 52759-8) [facility] HospitalPROCALCITONIN2022-01-24 07:43:46 Test Item Value Reference Range Interpretation Comments Procalcitonin (test 0.12 ng/mL <0.07 H code = 1956493852) RADHA (test code = RADHA) INTERPRETATION OF [...] lung abscess/empyema. For further information please refer to:[email or web address] Lab Interpretation Abnormal (test code = 33142-0) [facility] HospitalCHARLSE [id number] 03:12:06 Test Item Value Reference Interpretation Comments Range TROPONIN I (test 0.029 ng/mL See_Comment [Automated code = 2384765992) message] The system which generated this result [...] biotin. Lab Interpretation Normal (test code = 65285-9) [facility] HospitalPhosphorus [id number] 02:59:26 Test Item Value Reference Range Interpretation Comments PHOSPHORUS (test code = 2322706563) 3.5 mg/dL 2.5-5.0 Lab Interpretation (test code = Normal 65225-6) [facility] HospitalFERRITIN [id number] 02:43:44 Test Item Value Reference Range Interpretation Comments FERRITIN (test code = 132.0 ng/mL 18.0-464.0 7012211972) RADHA (test code = RADHA) Biotin has been reported to cause a negative bias, interpret results relative to patient's use of biotin. Lab Interpretation (test Normal code = 18930-9) [facility] HospitalGLYCOSYLATED HEMOGLOBIN (A1C)2021-09-03 02:22:16 Test Item Value Reference Range Interpretation Comments HGB A1C (test code = 6.3 % 4.0-5.7 H 4548-4) RADHA (test code = RADHA) Reference RangesNormal: <5.7%Prediabetes: 5.7 - 6.4%Diabetes: > 6.5% Lab Interpretation (test Abnormal code = 41548-8) [facility] [id number] 02:15:44 Test Item Value Reference Range Interpretation Comments IRON (test code = 7304818825) 21 ug/dL 50-160 L TIBC (test code = 2570583826) 294 ug/dL 250-410 % FE SAT (test code = 2586158941) 7 % 20-50 L Lab Interpretation (test code = Abnormal 55080-0) [facility] [id number] 01:17:43 Test Item Value Reference Range Interpretation Comments TSH (test code = See_Comment H [Automated message] 9955803058) The system [employer] generated this result transmitted ref erence range: 0.45 - 4 .70 mIU/L. The refe rence range was not u sed to interpret this result as normal/abnor mal. Lab Interpretation (test Abnormal code = 02830-6) [facility] GLUCOSE (AUTOMATED)2021-09-02 22:51:11 Test Item Value Reference Range Interpretation Comments POCT GLU (test code = 3854595141) 169 mg/dL 70-110 H Lab Interpretation (test code = Abnormal 45218-2) [facility] GLUCOSE (AUTOMATED)2021-09-02 21:35:04 Test Item Value Reference Range Interpretation Comments POCT GLU (test code = 9767031176) 176 mg/dL 70-110 H Lab Interpretation (test code = Abnormal 08634-0) [facility] Arterial Blood Gas.2021-09-02 16:59:20 Test Item Value Reference Range Interpretation Comments PH (test code = 2) 7.35-7.45 L PCO2 (test code = See_Comment [Automate d message] 5714659374) The system [employer] generated this result transmitted ref erence range: 35 - 45 mmHg. The reference r hilary was not used to interpret this result as normal/abnor mal. PO2 (test code = See_Comment L [Automated message] 7584189057) The system [employer] generated this result transmitted ref erence range: 80 - 100 mmHg. The reference r hilary was not used to interpret this result as normal/abnor mal. HCO3 (test code = See_Comment L [Automate d message] 6766624356) The system [employer] generated this result transmitted ref erence range: 22 - 26 mEq/L. The reference r hilary was not used to interpret this result as normal/abnor mal. BE (test code = See_Comment L [Automated message] 6087078472) The system [employer] generated this result transmitted ref erence range: -3.0 - 3 .0 mEq/L. The refe rence range was not u sed to interpret this result as normal/abnor mal. Lab Interpretation (test Abnormal code = 04921-5) [facility] [id number] 16:13:32 Test Item Value Reference Interpretation Comments Range TROPONIN I (test 0.042 ng/mL See_Comment H [Automated code = 8963255101) message] The system which generated this result [...] biotin. Lab Interpretation Abnormal (test code = 93614-3) [facility] [id number] 16:10:31 Test Item Value Reference Range Interpretation Comments NT-proBNP (test code 3090 pg/mL See_Comment H [Autom ated = 3941196891) message] The system which generated this result transmitted reference range : <=450. The reference range was not used to interpret this result as normal/abnormal . RADHA (test code = RADHA) Biotin has been reported to cause a negative bias, interpret results relative to patient's use of biotin. Lab Interpretation Abnormal (test code = 72802-1) [facility]OLIC PAN[facility] (25511)2021-09-02 16:02:09 Test Item Value Reference Range Interpretation Comments NA (test code = 141 mmol/L 135-145 0439189091) K (test code = 5.3 mmol/L 3.5-5.0 H 2693075455) CL (test code = 113 mmol/L 98-108 H 9623481020) CO2 TOTAL (test code = 21 mmol/L 23-31 L 9968916462) AGAP (test code = 2-16 0648331315) BUN (test code = 37 mg/dL 7-23 H 2323449841) GLUCOSE (test code = 167 mg/dL 70-110 H 7506417693) CREATININE (test code = 2.91 mg/dL 0.60-1.25 H 5935473113) TOTAL BILI (test code = 0.5 mg/dL 0.1-1.2 8502186340) CALCIUM (test code = 8.6 mg/dL 8.6-10.6 6263089046) T PROTEIN (test code = 6.4 g/dL 6.3-8.2 8332759419) ALBUMIN (test code = 3.6 g/dL 3.5-5.0 6268512519) ALK PHOS (test code = 128 U/L 34-122 H 7762693988) ALTv (test code = 21 U/L 5-50 1742-6) AST(SGOT) (test code = 17 U/L 13-40 4637989183) eGFR (test code = mL/min/1.73m2 8303080820) RADHA (test code = RADHA) Association of [...] tests). Lab Interpretation Abnormal (test code = 35159-5) [facility] 16:01:29 Test Item Value Reference Range Interpretation Comments LIPASE (test code = 1068472493) 102 U/L 0-220 Lab Interpretation (test code = Normal 89559-1) [facility] HospitalACTIVATED PARTIAL THRMPLAS [id number] 15:59:08 Test Item Value Reference Range Interpretation Comments APTT Patient (test See_Comment [Automat ed code = 3173-2) message] The system which generated this result transmitted reference range : 23 - 38 Seconds . The reference range was not used to interpr et this result as normal/abnormal . RADHA (test code = RADHA) The [facility] patient population mean normal value for aPTT is 30 seconds. Lab Interpretation Normal (test code = 87483-9) [facility] HospitalPROTHROMBIN TIME / [id number] 15:56:48 Test Item Value Reference Range Interpretation [...] tions. Lab Interpretation (test Normal code = 62166-3) [facility] HospitalCBC WITH [id number] 15:48:46 Test Item Value Reference Range Interpretation Comments WBC (test code = See_Comment [Automated 8790-2) message] The sy stem which generated this [...] (test code = 54.7 fL 38.5-51.6 H 37551-3) RDW-CV (test code = 15.5 % 12.1-15.4 H 788-0) PLT (test code = See_Comment [Automated 777-3) message] The sy stem which generated this result transmitted reference range : 150 - 328 10*3/ ?L. The reference r hilary was not used to interpret this result as normal/abnormal . MPV (test code = 9.8 fL 9.8-13.0 88135-0) NRBC/100 WBC (test See_Comment [Automat ed code = 7974543266) message] The system which generated this result transmitted reference range : 0.0 - 10.0 /100 WBCs. The refer ence range was not u sed to interpret th is result as normal/abnormal . NRBC x10^3 (test code <0.01 See_Comment [Auto mated = 3857434839) message] The s ystem which generated this result transmitted reference range : 10*3/?L. The reference range was not used to interpret this result as normal/abnormal . GRAN MAT (NEUT) % 76.7 % (test code = 770-8) IMM GRAN % (test code 0.40 % = 4174099969) LYMPH % (test code = 14.6 % 736-9) MONO % (test code = 6.4 % 5905-5) EOS % (test code = 1.5 % 713-8) BASO % (test code = 0.4 % 706-2) GRAN MAT x10^3(ANC) 6.25 10*3/uL 1.99-6.95 (test code = 6867820994) IMM GRAN x10^3 (test 0.03 10*3/uL 0.00-0.06 code = 6329697537) LYMPH x10^3 (test code 1.19 10*3/uL 1.09-3.23 = 731-0) MONO x10^3 (test code 0.52 10*3/uL 0.36-1.02 = 742-7) EOS x10^3 (test code = 0.12 10*3/uL 0.06-0.53 711-2) BASO x10^3 (test code 0.03 10*3/uL 0.01-0.09 = 704-7) Lab Interpretation Abnormal (test code = 16639-1) [facility]"
[2022-07-14] MEDS ORDERED: METHYLPREDNISOLONE 125 MG INJ ONE (17:01)
[2022-07-14] MEDS ORDERED: MAGNESIUM SULFATE 1 gm IVPB 1 GM/100 ML BAG IV ONE (17:01)
[2022-07-14] MEDS ORDERED: LEVALBUTEROL 1.25 MG/3 ML NEB ONE (17:01)
[2022-07-14] MEDS ORDERED: CEFTRIAXONE 1000 MG/VIAL ONE (17:01)
[2022-07-14 17:23] LABS: Absolute Lymphocytes (CBC) 0.6 K/uL (0.7-4.9); Hematocrit 33.7 % (39.6-49.0); Lymphocytes % 5.5 % (15.3-44.8); MCV 89.3 fL (80-100); MPV 7.6 fL (7.6-11.3); RBC Red Blood Cell Count 3.78 M/uL (4.33-5.43)
[2022-07-14 17:24] LABS: Urine Blood 1+ (Negative); Urine Glucose Negative (Negative); Urine Protein 2+ (Negative); Urine Specific Gravity 1.015 (1.005-1.030)
[2022-07-14 17:27] LABS: Protime INR 1.89
[2022-07-14 17:35] LABS: Albumin 2.6 g/dL (3.4-5.0); Bilirubin Total 0.8 mg/dL (0.2-1.0); Potassium 3.6 mmol/L (3.5-5.1); Protein, Total 8.9 g/dL (6.4-8.2)
[2022-07-14] MEDS ORDERED: METOPROLOL TAR 50 MG TAB ONE (18:12)
[2022-07-14] MEDS ORDERED: DIGOXIN 0.25 MG/ML AMP ONE (18:12)
[2022-07-14] MEDS ORDERED: METOPROLOL TARTRATE 5 MG/5 ML INJ IV ONE (18:13)
--- NOTE | 2022-07-14 18:46 | RAD REPORT ---
EXAM DESCRIPTION: RAD - Chest Single View - 07/14/2022 6:36 pm CLINICAL HISTORY: SOB COMPARISON: Portable chest 10/10/2021 TECHNIQUE: AP portable chest image was obtained 07/14/2022 6:36 pm . FINDINGS: Patient has a baseline of extensive interstitial lung disease. That pattern is present on the current examination with additional superimposed interstitial thickening and scattered alveolar o pacities, worse in the right lung field. Left upper lung field is relatively spared. No cavitation or focal mass. Heart and vasculature are normal. No measurable pleural effusion and no pneumothorax. No acute bony abnormality seen. No acute aortic findings suspected. IMPRESSION: Alveolar edema and infiltrate superimposed on chronic interstitial lung disease. Pneumon ia is most likely.
[2022-07-14 19:04] LABS: SARS-COV-2 RT PCR NEGATIVE (NEGATIVE)
--- NOTE | 2022-07-14 19:04 | ER ---
Nurse's Notes [facility] Name: Frank López Age: 77 yrs Sex: Male : 1945 Arrival Date: 07/14/2022 Time: 16:39 Bed 23 Private MD: Diagnosis: Atrial fibrillation;Community-acquired pneumonia;Severe sepsis;Urinary tract infection Presentation: 07/14 16:49 Chief complaint: EMS states: SOB, cough, and subjective fever x 3 days. SpO2 89% on hb 2LNC home O2. Coronavirus screen: At this time, the client does not indicate any symptoms associated with coronavirus-19. Ebola Screen: No symptoms or risks identified at this time. Initial Sepsis Screen: Does the patient meet any 2 criteria? RR > 20 per min. HR > 90 bpm. Yes Does the patient have a suspected source of infection? Yes: Productive cough/pneumonia If YES to both, name of provider notified: Rajinder VILLA Risk Assessment: Do you want to hurt yourself or someone else? Patient reports no desire to harm self or others. Onset of symptoms was July 11, 2022. 16:49 Method Of Arrival: EMS: [facility] hb 16:49 Acuity: GAVI 2 hb Triage Assessment: 16:50 General: Appears distressed, Behavior is calm, cooperative. Pain: Pain currently is 6 hb out of 10 on a pain scale. EENT: No signs and/or symptoms were reported regarding the EENT system. Neuro: Level of Consciousness is awake, alert, obeys commands, Oriented to person, place, time, situation. Cardiovascular: Patient's skin is warm and dry. Rhythm is sinus tachycardia. Respiratory: Respiratory effort is labored, using tripod position, Respiratory pattern is tachypnea. GI: No deficits noted. : No deficits noted. Derm: Skin is pink, warm \T\ dry. Musculoskeletal: Reports body aches, pain with deep breathing. Historical: - Allergies: 16:52 Codeine; hb 16:52 Sulfa (Sulfonamide Antibiotics); hb - PMHx: 16:52 Atrial fibrillation; COPD; Diabetes - NIDDM; High Cholesterol; Hypertension; hb - PSHx: 16:52 Nephrectomy; hb - Immunization history:: Adult Immunizations up to date. - Social history:: Smoking status: Patient/guardian denies using tobacco. Screenin:48 Abuse screen: Denies threats or abuse. Denies injuries from another. Nutritional hb screening: No deficits noted. Tuberculosis screening: No symptoms or risk factors identified. Fall Risk Total Galvan Fall Scale indicates Low Risk Score (25-44 pts). Fall prevention measures have been instituted. Side Rails Up X 2 Frequent Obs/Assesments occuring As available Patient and Family Educated on Fall Prevention Program and strategies. Assessment: 16:50 Reassessment: CODE SEPSIS CALLED. hb 16:51 General: See triage assessment. hb 17:45 Reassessment: No changes from previously documented assessment. Patient and/or family hb updated on plan of care and expected duration. Pain level reassessed. 18:45 Reassessment: No changes from previously documented assessment. Patient and/or family hb updated on plan of care and expected duration. Pain level reassessed. 19:40 General: Appears comfortable, Behavior is calm, cooperative. Pain: Denies pain. Neuro: ha1 Level of Consciousness is awake, alert, obeys commands, Oriented to person, place, time, situation. Cardiovascular: Capillary refill < 3 seconds Patient's skin is warm and dry. Respiratory: Airway is patent Trachea midline Respiratory effort is even, unlabored, Respiratory pattern is regular, symmetrical, Breath sounds are coarse bilaterally. Respiratory: Reports shortness of breath. GI: No signs and/or symptoms were reported involving the gastrointestinal system. Abdomen is non-distended, obese. : No signs and/or symptoms were reported regarding the genitourinary system. EENT: No deficits noted. No signs and/or symptoms were reported regarding the EENT system. Derm: Skin is healthy with good turgor. Musculoskeletal: Circulation, motion, and sensation intact. Vital Signs: 16:49 BP 122 / 72; Pulse 146; Resp 26; Temp 98.3; Pulse Ox 90% on 3 lpm NC; Weight 81.65 kg; hb Height 5 ft. 9 in. (175.26 cm); Pain 6/10; 17:15 BP 119 / 78; Pulse 149; Resp 27; Pulse Ox 90% on 3 lpm NC; hb 18:00 BP 109 / 61; Pulse 138; Resp 23; Pulse Ox 90% on 3 lpm NC; hb 18:47 BP 117 / 64; Pulse 112; Resp 19; Pulse Ox 92% on 3 lpm NC; hb 19:40 BP 117 / 64; Pulse 91; Resp 20; Pulse Ox 93% on 3 lpm NC; ha1 16:49 Body Mass Index 26.58 (81.65 kg, 175.26 cm) hb ED Course: 16:39 Patient arrived in ED. iw 16:43 Rajinder Thomas PA is PHCP. jmm 16:43 Akin Howe MD is Attending Physician. jmm 16:51 Triage completed. hb 16:52 Mee Alegre, CESAR is Primary Nurse. hb 16:52 Arm band placed on. EKG completed in triage. Results shown to MD. hb 17:13 Patient has correct armband on for positive identification. Placed in gown. Bed in low mm9 position. Call light in reach. Side rails up X2. Warm blanket given. bus monitor on. Pulse ox on. NIBP on. 17:13 EKG done, by ED staff, reviewed by Rajinder VILLA. mm9 17:13 Inserted saline lock: 20 gauge in left antecubital area, using aseptic technique. Blood hb collected. 17:14 Blood Culture Adult (2) Sent. mm9 17:14 CBC with Diff Sent. mm9 17:15 CMP Sent. mm9 17:15 Lactate w/ 2H reflex if indic. Sent. mm9 17:15 Protime (+inr) Sent. mm9 17:15 Ptt, Activated Sent. mm9 18:38 Chest Single View XRAY In Process Unspecified. EDMS 19:02 Chago Navarrete MD is Hospitalizing Provider. [facility] 21:06 No provider procedures requiring assistance completed. Patient admitted, IV remains in ha1 place. Administered Medications: 17:25 Drug: SOLU-Medrol (methylPrednisoLONE) 125 mg Route: IVP; Site: left antecubital; hb 17:25 Drug: Xopenex (levalbuterol) (3) 1.25 mg Route: Inhalation; hb 17:25 Drug: Magnesium Sulfate 1 grams Route: IVPB; Infused Over: 1 hrs; Site: left hb antecubital; 17:25 Drug: Rocephin (cefTRIAXone) 1 grams Route: IV; Rate: calculated rate; Site: left hb antecubital; 18:21 Drug: Digoxin 0.5 mg Route: IVP; Site: left antecubital; hb 18:21 Drug: Metoprolol 50 mg Route: PO; hb 18:21 Drug: Metoprolol 2.5 mg Route: IVP; Site: left antecubital; hb 19:19 Drug: AZITHromycin 500 mg Route: PO; ha1 20:21 Follow up: Response: No adverse reaction ha1 Medication: 18:50 VIS not applicable for this client. hb Outcome: 19:03 Decision to Hospitalize by Provider. dwight 21:06 Admitted to Med/surg accompanied by tech, via wheelchair, room 230, with oxygen, Report ha1 called to CESAR Patel 21:06 Condition: stable 21:06 Discharge instructions given to patient, Instructed on the need for admit, Demonstrated understanding of instructions. 21:07 Patient left the ED. ha1 Signatures: Dispatcher [employer] EDMS Rajinder Thomas PA PA jmm Williams, Irene, RN RN Mee Alegre RN RN Gertrudis Sahu RN RN ha1 Princess Cohn mm9 Corrections: (The following items were deleted from the chart) 17:26 16:49 BP 122 / 72; Pulse 146bpm; Resp 26bpm; Pulse Ox 92% 3 lpm Nasal Cannula; Temp hb 98.3F; 81.65 kg; Height 5 ft. 9 in.; BMI: 26.5; Pain 6/10; hb 18:48 18:48 Respiratory: Reports hb hb
--- NOTE | 2022-07-14 19:04 | EDPHYS ---
Physician Documentation [facility] Name: Frank López Age: 77 yrs Sex: Male : 1945 Arrival Date: 07/14/2022 Time: 16:39 Bed 23 Private MD: ED Physician Akin Howe HPI: 07/14 19:03 This 77 yrs old Male presents to ER via EMS with complaints of Shortness Of Breath. jmm 19:03 The patient has shortness of breath at rest. Onset: The symptoms/episode began/occurred jmm gradually, 2 day(s) ago. Duration: The symptoms are continuous, and are steadily getting worse. The patient's shortness of breath is aggravated by nothing, is alleviated by nothing. Associated signs and symptoms: Pertinent positives: fever. Historical: - Allergies: 16:52 Codeine; hb 16:52 Sulfa (Sulfonamide Antibiotics); hb - PMHx: 16:52 Atrial fibrillation; COPD; Diabetes - NIDDM; High Cholesterol; Hypertension; hb - PSHx: 16:52 Nephrectomy; hb - Immunization history:: Adult Immunizations up to date. - Social history:: Smoking status: Patient/guardian denies using tobacco. ROS: 19:03 Constitutional: Positive for fever. jmm 19:03 Respiratory: Positive for cough, shortness of breath. 19:03 All other systems are negative. Exam: 19:03 Head/Face: atraumatic. Eyes: EOMI, no conjunctival erythema appreciated ENT: Moist jmm Mucus Membranes Neck: Trachea midline, Supple Chest/axilla: Normal chest wall appearance and motion. Cardiovascular: Regular rate and rhythm. No edema appreciated 19:03 Abdomen/GI: Non distended Back: Normal ROM Skin: General appearance color normal MS/ Extremity: Moves all extremities, no obvious deformities appreciated, no edema noted to the lower extremities Neuro: Awake and alert Psych: Behavior is normal, Mood is normal, Patient is cooperative and pleasant 19:03 Constitutional: The patient appears alert, awake, anxious, uncomfortable. 19:03 Respiratory: mild respiratory distress is noted, Respirations: labored breathing, that is moderate, Breath sounds: wheezing: that is moderate, is heard diffusely. Vital Signs: 16:49 BP 122 / 72; Pulse 146; Resp 26; Temp 98.3; Pulse Ox 90% on 3 lpm NC; Weight 81.65 kg; hb Height 5 ft. 9 in. (175.26 cm); Pain 6/10; 17:15 BP 119 / 78; Pulse 149; Resp 27; Pulse Ox 90% on 3 lpm NC; hb 18:00 BP 109 / 61; Pulse 138; Resp 23; Pulse Ox 90% on 3 lpm NC; hb 18:47 BP 117 / 64; Pulse 112; Resp 19; Pulse Ox 92% on 3 lpm NC; hb 19:40 BP 117 / 64; Pulse 91; Resp 20; Pulse Ox 93% on 3 lpm NC; ha1 16:49 Body Mass Index 26.58 (81.65 kg, 175.26 cm) hb MDM: 16:50 Patient medically screened. [facility] 19:01 Data reviewed: vital signs, nurses notes. Counseling: I had a detailed discussion with [facility] the patient and/or guardian regarding: the historical points, exam findings, and any diagnostic results supporting the discharge/admit diagnosis, lab results, radiology results, the need for further work-up and treatment in the hospital. ED course: I discussed the patient with Beckie Wu PA-C whom accepted the patient to Dr. Carreno service. . 19:06 ED course: Source of infection is pneumonia, patient does meet SIRS criteria due to [facility] elevated heart rate and elevated respiratory rate, patient does meet organ dysfunction with elevated creatinine and elevated bilirubin. 19:06 ED course: Patient does not meet criteria for septic shock, patient's systolic blood [facility] pressure has been over 90 and lactate is within normal limits. 07/14 16:50 Order name: Blood Culture Adult (2) [facility] 07/14 16:50 Order name: CBC with Diff; Complete Time: 17:28 [facility] 07/14 16:50 Order name: CMP; Complete Time: 17:43 [facility] 07/14 16:50 Order name: Lactate w/ 2H reflex if indic.; Complete Time: 17:43 [facility] 07/14 16:50 Order name: Protime (+inr); Complete Time: 17:28 [facility] 07/14 16:50 Order name: Ptt, Activated; Complete Time: 17:28 [facility] 07/14 16:50 Order name: Urine Culture [facility] 07/14 16:50 Order name: Urine Microscopic Only; Complete Time: 18:46 [facility] 07/14 17:00 Order name: COVID-19/FLU A+B; Complete Time: 19:07 [facility] 07/14 17:24 Order name: Urine Dipstick-Ancillary; Complete Time: 17:28 [facility] 07/14 17:28 Order name: Chest Single View XRAY; Complete Time: 18:48 [facility] 07/14 16:50 Order name: EKG; Complete Time: 16:51 [facility] 07/14 16:50 Order name: Accucheck; Complete Time: 17:25 [facility] 07/14 16:50 Order name: Cardiac monitoring; Complete Time: 17:14 [facility] 07/14 16:50 Order name: EKG - Nurse/Tech; Complete Time: 17:14 [facility] 07/14 16:50 Order name: IV Saline Lock - Large Bore; Complete Time: 17:14 [facility] 07/14 16:50 Order name: Labs collected and sent; Complete Time: 17:14 [facility] 07/14 16:50 Order name: O2 Per Protocol; Complete Time: 17:14 [facility] 07/14 16:50 Order name: O2 Sat Monitoring; Complete Time: 17:25 [facility] 07/14 16:50 Order name: Vital Signs; Complete Time: 17:25 [facility] Administered Medications: 17:25 Drug: SOLU-Medrol (methylPrednisoLONE) 125 mg Route: IVP; Site: left antecubital; hb 17:25 Drug: Xopenex (levalbuterol) (3) 1.25 mg Route: Inhalation; hb 17:25 Drug: Magnesium Sulfate 1 grams Route: IVPB; Infused Over: 1 hrs; Site: left hb antecubital; 17:25 Drug: Rocephin (cefTRIAXone) 1 grams Route: IV; Rate: calculated rate; Site: left hb antecubital; 18:21 Drug: Digoxin 0.5 mg Route: IVP; Site: left antecubital; hb 18:21 Drug: Metoprolol 50 mg Route: PO; hb 18:21 Drug: Metoprolol 2.5 mg Route: IVP; Site: left antecubital; hb 19:19 Drug: AZITHromycin 500 mg Route: PO; ha1 20:21 Follow up: Response: No adverse reaction ha1 Disposition Summary: 07/14/22 19:03 Hospitalization Ordered Hospitalization Status: Inpatient Admission sidney Provider: Navarrete, Mohammad jmm Location: Telemetry/MedSurg (Inpatient) jmm Condition: Stable jmm Problem: new jmm Symptoms: have improved jmm Bed/Room Type: Standard [facility] Room Assignment: 230(07/14/22 20:02) blayne Diagnosis - Atrial fibrillation jmm - Community-acquired pneumonia jmm - Severe sepsis jmm - Urinary tract infection jmm Forms: - Medication Reconciliation Form jmm - SBAR form jmm Signatures: Dispatcher [employer] Jaqueline Wade RN RN mw Mickail, Joel, PA PA jmm Baxter, Heather, RN RN Gertrudis Sahu RN RN ha1 Corrections: (The following items were deleted from the chart) 20:02 19:03 dwight cisneros
[2022-07-14] MEDS ORDERED: AZITHROMYCIN 250 MG TAB ONE (19:15)
--- NOTE | 2022-07-14 19:30 | P.HP ---
Certification for Inpatient Patient admitted to: Inpatient With expected LOS: >2 Midnights Patient will require the following post-hospital care: None Practitioner: I am a practitioner with admitting privileges, knowledge of patient current condition, hospital course, and medical plan of care. Services: Services provided to patient in accordance with Admission requirements found in Title 42 Section 412.3 of the Code of Federal Regulations Patient History Date of Service: 07/14/22 Primary Care Provider: SHEA Reason for admission: Pneumonia, COPD, JAZZY History of Present Illness: Patient is a 77 year old male with past medical history of non insulin dependent type 2 diabetes, hypertension, CKD4, and COPD on home O2 who presented to the ED with complaints of gradually worsening shortness of breath, cough, and subjective fever for 3 days now. He was noted to be in afib RVR upon arrival any tachypneic at 90% on 3L NC. He was given 0.5 IV digoxin, 2.5 metoprolol IV, and 50 mg PO metoprolol in the ED which resolved the afib RVR. Labs significant for. Chest xray showed "Alveolar edema and infiltrate superimposed on chronic i nterstitial lung disease. Pneumonia is most likely." He was additionally given solumedrol, breathing treatment, magnesium, rocephin, and azithromycin. He clinically improved and is admitted for further management. Allergies codeine Allergy (Verified 08/08/21 02:36) Shortness of breath Sulfa (Sulfonamide Antibiotics) Allergy (Verified 08/08/21 02:36) Shortness of breath Home medications list reviewed: Yes Home Medications: Atorvastatin Calcium 40 mg PO BEDTIME 08/02/18 Finasteride [Proscar*] 5 mg PO DAILY 08/02/18 Gabapentin 300 mg PO BEDTIME 08/02/18 Paroxetine HCl [Paxil] 20 mg PO DAILY 08/02/18 allopurinoL [Zyloprim*] 100 mg PO DAILY 08/03/18 Budesonide/Formoterol Fumarate [Symbicort 160-4.5 Mcg Inhaler] 2 puff IH BID #60 hfa.aer.ad 08/06/18 Cholecalciferol (Vitamin D3) [Vitamin D3] 25 mcg PO DAILY 08/08/21 Cyanocobalamin [Vitamin B-12*] 2,000 mcg PO DAILY 08/08/21 Ipratropium/Albuterol Sulfate [Combivent Respimat 20-100 Mcg] 1 puff IH Q6H PRN 08/08/21 Nifedipine [Procardia Xl] 60 mg PO DAILY 08/08/21 Apixaban [Eliquis *] 2.5 mg PO BID #60 tablet 08/11/21 Furosemide [Lasix] 40 mg PO DAILY #30 tablet 08/11/21 Levalbuterol HCl [Xopenex] 1.25 mg NEB Q6H PRN #60 ml 08/11/21 Metoprolol Tartrate [Lopressor*] 50 mg PO BID 6AM 6PM #60 tab 08/11/21 Na Bicarb Tab [Sodium Bicarb 325 MG Tab*] 325 mg PO BID #60 tab 08/11/21 Tamsulosin [Flomax*] 0.4 mg PO BID #60 cap 08/11/21 predniSONE [Deltasone] 20 mg PO BID #20 tab 08/11/21 - Past Medical/Surgical History Diabetic: Yes -: COPD -: diabetes mellitus II -: CKD -: dyslipidemia -: CAD s/p PCI -: monoclonal gammopathy -: PVD -: AAA -: history of bladder cancer -: synovial chondromatosis -: neuropathy -: HTN -: L. Nephrectomy r/t CA - 1994 -: Status post stent -: Peripheral vascular disease - Social History Smoking Status: Former smoker Alcohol use: No CD- Drugs: No Caffeine use: Yes Place of Residence: Home Review of Systems General: Fever Respiratory: Cough, Shortness of Breath Physical Examination - Vital Signs Temperature: 98.3 F Blood Pressure: 117/64 Pulse: 112 Respirations: 19 Pulse Ox (%): 92 (4L NC) - Physical Exam General: Alert, In no apparent distress HEENT: Atraumatic, PERRLA, EOMI, Sclerae nonicteric Neck: Supple, 2+ carotid pulse no bruit, No LAD, Without JVD or thyroid abnormality Respiratory: Expiratory wheezes Cardiovascular: Regular rate/rhythm, Normal S1 S2 Gastrointestinal: Normal bowel sounds, No tenderness Musculoskeletal: No tenderness Integumentary: No rashes Neurological: Normal speech, Normal strength at 5/5 x4 extr, Normal tone, Normal affect - Studies Laboratory Data (last 24 hrs) 07/14/22 17:06: PT 20.8 H, INR 1.89, APTT 35.4 07/14/22 17:06: Sodium 134 L, Potassium 3.6, BUN 59 H, Creatinine 4.23 H, Glucose 146 H, Total Bilirubin 0.8, AST 30, ALT 36, Alkaline Phosphatase 154 H 07/14/22 17:06: WBC 11.90 H, Hgb 11.2 L, Hct 33.7 L, Plt Count 333 Assessment and Plan - Problems (Diagnosis) (1) Pneumonia Current Visit: Yes Status: Acute Qualifiers: Pneumonia type: due to unspecified organism Laterality: right Lung location: unspecified part of lung Qualified Code(s): J18.9 - Pneumonia, unspecified organism (2) Afib Current Visit: Yes Status: Chronic Qualifiers: Atrial fibrillation type: paroxysmal Qualified Code(s): I48.0 - Paroxysmal atrial fibrillation (3) Acute kidney injury superimposed on chronic kidney disease Current Visit: Yes Status: Acute (4) COPD exacerbation Current Visit: Yes Status: Acute (5) CAD (coronary artery disease) Current Visit: Yes Status: Chronic Qualifiers: Coronary Disease-Associated Artery/Lesion type: [place] artery [place] vs. transplanted heart: [place] heart Associated angina: without angina Qualified Code(s): I25.10 - Atherosclerotic heart disease of [place] coronary artery without angina pectoris (6) Diabetes mellitus Current Visit: Yes Status: Chronic Qualifiers: Diabetes mellitus type: type 2 Diabetes mellitus long term care pharmacist insulin use: without long term care pharmacist use Diabetes mellitus complication status: with kidney complications Diabetes mellitus complication detail: with chronic kidney disease Chronic kidney disease stage: stage 4 (severe) Qualified Code(s): E11.22 - Type 2 diabetes mellitus with diabetic chronic kidney disease; N18.4 - Chronic kidney disease, stage 4 (severe) (7) Dyslipidemia Current Visit: Yes Status: Chronic (8) HTN (hypertension) Current Visit: Yes Status: Chronic Qualifiers: Hypertension type: primary hypertension Qualified Code(s): I10 - Essential (primary) hypertension - Plan Patient is admitted for further management of pneumonia/COPD exacerbation. Continue antibiotics- rocephin and azithromycin. IV steroids, incentive spirometry, pulmonology consult. Supportive measures with PRN breathing treatments, antitussives, and mucinex. ACHS accu checks with mild sliding scale and diabetic diet. Nephrology consulted for JAZZY. Renally dose medications. No NSAIDs. Patient has chronic UTI that he is seeing infectious disease for. Blood and urine cultures obtained. Lipid panel, TSH, and A1c orderd. Titrate O2 and wean as tolerated. Monitor and replete electrolytes per protocol Reconcile and continue home medications Heparin for VTE prophylaxis Full code Discharge Plan: Home Plan to discharge in: Greater than 2 days - Advance Directives Does patient have a Living Will: No Does patient have a Durable POA for Healthcare: No - Code Status/Comfort Care Code Status Assessed: Yes Code Status: Full Code Physician Review: Patient Assessed, Agree with Above Assessment and Plan Critical Care: No Time Spent Managing Pts Care (In Minutes): 50
[2022-07-14 21:31] VITALS: BMI 26.6
[2022-07-14] MEDS ORDERED: ONDANSETRON 4 MG/2 ML VIAL IV PRN (21:34)
[2022-07-14] MEDS: INSULIN -REGULAR HUMAN 50 UNIT/0.5 ML ML SQ SCH (21:34)
[2022-07-14] MEDS ORDERED: ALBUTEROL 2.5 MG/3 ML NEB SOL NEB PRN (21:34)
[2022-07-14] MEDS: HEPARIN 5000 UNIT/ML 1 ML VIAL SQ SCH (22:06)
[2022-07-15] MEDS: METHYLPREDNISOLONE 40 MG INJ IV SCH ×3 (00:12→17:14)
[2022-07-15 04:18] LABS: Absolute Lymphocytes (CBC) 0.4 K/uL (0.7-4.9); Hematocrit 31.9 % (39.6-49.0); MCV 89.4 fL (80-100); MPV 7.9 fL (7.6-11.3); RBC Red Blood Cell Count 3.56 M/uL (4.33-5.43)
[2022-07-15 04:47] LABS: Albumin 2.2 g/dL (3.4-5.0); Magnesium 2.4 mg/dL (1.8-2.4); Phosphorus 4.5 mg/dL (2.5-4.9); Potassium 4.1 mmol/L (3.5-5.1); Thyroid Stimulating Hormone 2.05 uIU/mL (0.360-3.740)
[2022-07-15 05:24] LABS: Blood Morphology Comment NOT SEEN (NOT SEEN); Platelet Estimate ADEQ
[2022-07-15] MEDS: INSULIN -REGULAR HUMAN 50 UNIT/0.5 ML ML SQ SCH ×4 (07:30→21:30)
[2022-07-15] MEDS ORDERED: PNEUMOCOCCAL VACCINE 0.5 ML IMVAC ONE (08:00)
[2022-07-15] MEDS ORDERED: INFLUENZA VACCINE (for 6+ mo) 0.5 ML DOSE IMVAC ONE (08:00)
[2022-07-15] MEDS: CEFTRIAXONE 1,000 MG in NA CHLORIDE 0.9% 50 ML IVPB SCH (09:58)
[2022-07-15] MEDS: HEPARIN 5000 UNIT/ML 1 ML VIAL SQ SCH ×2 (09:59→21:29)
[2022-07-15] MEDS: AZITHROMYCIN IV 500 MG in NA CHLORIDE 0.9% 250 ML IVPB SCH (09:59)
[2022-07-15] MEDS: ACETAMINOPHEN 325 MG TABLET PO PRN ×2 (10:02→21:29)
--- NOTE | 2022-07-15 10:15 | RAD REPORT ---
EXAM DESCRIPTION: CT - Thorax Wo Con - 07/15/2022 9:40 am CLINICAL HISTORY: pneumonia COMPARISON: Chest Single View dated 07/14/2022 TECHNIQUE: Axial 5 mm thick images of the chest were obtained without IV contrast. All CT scans are performed using dose optimization technique as appropriate and may include automated exposure control or mA/KV adjustment according to patient size. FINDINGS: Dense consolidation with air bronchogram formation is seen in the medial aspect of the mid and lower portions of the left lower lobe. Consolidation extends into the posterior gutter. Left upp er lobe is clear of any significant finding. Patchy areas of airspace opacification are scattered in the right upper lobe and very minimally in the right middle lobe. Slightly more prominent interstitia l and alveolar opacities are present in the right lower lobe. Mild bronchial wall thickening changes are present. No underlying suspicious mass. There is no cavitation. Trace amounts of pleural fluid ar e seen in each lung field posteriorly. No pneumothorax. Multiple small noncalcified mediastinal and hilar lymph nodes are present most likely reactive. No acute aortic finding evident. Aorta and pulmonary arterial tree assessment is limited in the abse nce of contrast. No pericardial thickening or effusion. Patient has dense coronary artery calcificati ons. No chest wall mass or abnormal axillary lymphadenopathy. IMPRESSION: Consolidated pneumonia in the medial and posterior left lower lobe. Less prominent pneumonia changes are present in the right lower lobe with very minimal right upper an d right middle lobe infiltrates. Numerous mediastinal lymph nodes most likely reactive from the bilateral pneumonia findings.
--- NOTE | 2022-07-15 10:46 | P.CNS ---
Date of Consult: 07/15/22 Reason for Consult: JAZZY/ CKD Requesting Physician: Chago Navarrete Primary Care Provider: SHEA Chief Complaint: Pneumonia, COPD, JAZZY History of Present Illness: Patient is a 77 year old male with past medical history of non insulin dependent type 2 diabetes, hypertension, CKD4, and COPD on home O2 who presented to the ED with complaints of gradually worsening shortness of breath, cough, and subjective fever for 3 days now. He was noted to be in afib RVR upon arrival any tachypneic at 90% on 3L NC. He was given 0.5 IV digoxin, 2.5 metoprolol IV, and 50 mg PO metoprolol in the ED which resolved the afib RVR. Labs significant for. Chest xray showed "Alveolar edema and infiltrate superimposed on chronic interstitial lung disease. Pneumonia is most likely." He was additionally given solumedrol, breathing treatment, magnesium, rocephin, and azithromycin. He clinically improved and is admitted for further management. 19:03 This 77 yrs old Male presents to ER via EMS with complaints of Shortness Of Breath. jmm 19:03 The patient has shortness of breath at rest. Onset: The symptoms/episode began/occurred jm gradually, 2 day(s) ago. Duration: The symptoms are continuous, and are steadily getting worse. The patient's shortness of breath is aggravated by nothing, is alleviated by nothing. Associated signs and symptoms: Pertinent positives: fever. Allergies codeine Allergy (Verified 08/08/21 02:36) Shortness of breath Sulfa (Sulfonamide Antibiotics) Allergy (Verified 08/08/21 02:36) Shortness of breath Home medications list reviewed: Yes Home Medications: Atorvastatin Calcium 40 mg PO BEDTIME 08/02/18 Finasteride [Proscar*] 5 mg PO DAILY 08/02/18 Gabapentin 300 mg PO BEDTIME 08/02/18 Paroxetine HCl [Paxil] 20 mg PO DAILY 08/02/18 allopurinoL [Zyloprim*] 100 mg PO DAILY 08/03/18 Budesonide/Formoterol Fumarate [Symbicort 160-4.5 Mcg Inhaler] 2 puff IH BID #60 hfa.aer.ad 08/06/18 Cholecalciferol (Vitamin D3) [Vitamin D3] 25 mcg PO DAILY 08/08/21 Cyanocobalamin [Vitamin B-12*] 2,000 mcg PO DAILY 08/08/21 Ipratropium/Albuterol Sulfate [Combivent Respimat 20-100 Mcg] 1 puff IH Q6H PRN 08/08/21 Nifedipine [Procardia Xl] 60 mg PO DAILY 08/08/21 Apixaban [Eliquis *] 2.5 mg PO BID #60 tablet 08/11/21 Furosemide [Lasix] 40 mg PO DAILY #30 tablet 08/11/21 Levalbuterol HCl [Xopenex] 1.25 mg NEB Q6H PRN #60 ml 08/11/21 Metoprolol Tartrate [Lopressor*] 50 mg PO BID 6AM 6PM #60 tab 08/11/21 Na Bicarb Tab [Sodium Bicarb 325 MG Tab*] 325 mg PO BID #60 tab 08/11/21 Tamsulosin [Flomax*] 0.4 mg PO BID #60 cap 08/11/21 predniSONE [Deltasone] 20 mg PO BID #20 tab 08/11/21 - Past Medical/Surgical History Diabetic: Yes -: COPD -: DM II with polyneuropathy & CKD -: CKD IV with Proteinuria (Dr. Carrillo) -: HTN -: CAD s/p PCI -: HLD -: PAD/ AAA -: Diastolic CHF -: Anemia/ Iron Deficiency -: monoclonal gammopathy -: history of bladder cancer -: synovial chondromatosis -: Left Nephrectomy r/t 1994 -: Status post stent -: Peripheral vascular disease - Family History Mother Medical History: Heart disease, Lung disease - Social History Smoking Status: Current every day smoker Alcohol use: No CD- Drugs: No Caffeine use: Yes Place of Residence: Home Review of Systems 10-point ROS is otherwise unremarkable General: Weakness, Malaise Respiratory: Cough, Shortness of Breath Gastrointestinal: Constipation Genitourinary: Frequency Neurological: Weakness Physical Examination Temp Pulse Resp BP Pulse Ox 97.2 F 66 18 108/69 96 07/15/22 08:00 07/15/22 08:00 07/15/22 08:00 07/15/22 08:00 07/15/22 08:00 General: In no apparent distress, Oriented x3, Cooperative HEENT: Atraumatic Neck: Supple Respiratory: Other (Coarse Breath Sounds with scattered wheeze) Cardiovascular: No edema, No rubs Gastrointestinal: Hypoactive, Non-distended Musculoskeletal: No clubbing, No contractures Integumentary: No rashes, No cyanosis Neurological: Normal speech Laboratory Data (last 24 hrs) 07/14/22 17:06: PT 20.8 H, INR 1.89, APTT 35.4 07/14/22 17:06: Sodium 134 L, Potassium 3.6, BUN 59 H, Creatinine 4.23 H, Glucose 146 H, Total Bilirubin 0.8, AST 30, ALT 36, Alkaline Phosphatase 154 H 07/14/22 17:06: WBC 11.90 H, Hgb 11.2 L, Hct 33.7 L, Plt Count 333 Imagings Data: EXAM DESCRIPTION: CT - Thorax Wo Con - 07/15/2022 9:40 am CLINICAL HISTORY: pneumonia COMPARISON: Chest Single View dated 07/14/2022 TECHNIQUE: Axial 5 mm thick images of the chest were obtained without IV contrast. All CT scans are performed using dose optimization technique as appropriate and may include automated exposure control or mA/KV adjustment according to patient size. FINDINGS: Dense consolidation with air bronchogram formation is seen in the medial aspect of the mid and lower portions of the left lower lobe. Consolidation extends into the posterior gutter. Left upper lobe is clear of any significant finding. Patchy areas of airspace opacification are scattered in the right upper lobe and very minimally in the right middle lobe. Slightly more prominent intersti tial and alveolar opacities are present in the right lower lobe. Mild bronchial wall thickening changes are present. No underlying suspicious mass. There is no cavitation. Trace amounts of pleural fluid are seen in each lung field posteriorly. No pneumothorax. Multiple small noncalcified mediastinal and hilar lymph nodes are present most likely reactive. No acute aortic finding evident. Aorta and pulmonary arterial tree assessment is limited in the absence of contrast. No pericardial thickening or effusion. Patient has dense coronary artery calcifications. No chest wall mass or abnormal axillary lymphadenopathy. IMPRESSION: Consolidated pneumonia in the medial and posterior left lower lobe. Less prominent pneumonia changes are present in the right lower lobe with very minimal right upper and right middle lobe infiltrates. Numerous mediastinal lymph nodes most likely reactive from the bilateral pneumonia findings. EXAM DESCRIPTION: US - Renal Ultrasound-Complete - 08/08/2021 3:36 am CLINICAL HISTORY: JAZZY COMPARISON: Renal Ultrasound-Complete dated 11/04/2018; CT-STONE PROTOCOL dated 06/30/2010 FINDINGS: The right kidney measures 9.7 x 4.5 x 5.1 cm. The left kidney is absent. Renal cortical thickness and echogenicity are normal. No hydronephrosis or suspicious renal mass. The small 15 millimeter cyst present in the upper pole right kidney with no suspicious characteristics. No bladder wall thickening or mass. No intraluminal stone or mass. IMPRESSION: No hydronephrosis or suspicious renal mass. No bladder abnormality identified. COMMENTS: NORMAL LEFT VENTRICULAR EJECTION FRACTION 55-60% WITH NORMAL WALL MOTION. MODERATE DIASTOLIC DYSFUNCTION. MILD MITRAL REGURGITATION. MILD AORTIC INSUFFIENCY. Conclusions/Impression: Stage I JAZZY likely due to hypovolemia CKD IV with proteinuria Left nephrectomy 1994 -No NSAIDs -Start gentle IVF Hypovolemic Hyponatremia -Encourage nutrition HTN with CKD/ CHF complicated hypotension -Hold Nifedipine at this time Diastolic CHF, chronic -Daily weight DM II with polyneuropathy and CKD Exacerbated by IV steroids -RISS Anemia in chronic illness Iron Deficiency -Monitor H&H -Consider IV iron CKD MBD -Start Ergo qwk BPH with LUTS -Start Flomax qhs Slow transit constipation -Start Colace BID BL PNA COPD with exacerbation -Continue Abx -Continue steroids -Neb prn Thank you kindly for the consultation.
[2022-07-15] MEDS ORDERED: DOCUSATE NA 100 MG CAP PO ONE (11:30)
[2022-07-15] MEDS ORDERED: DRISDOL (VITAMIN D=ERGOCALCIFEROL) 50000 UNIT CAP PO SCH (12:00)
--- NOTE | 2022-07-15 13:46 | EKG ---
Test Date: 2022-07-14 Test Time: 17:02:13 Demand Planning Analyst: HEATHER MEASUREMENT RESULTS: Intervals: Rate: 135 VT: QRSD: 96 QT: 318 QTc: 477 [place]: P: VT: QRS: 42 T: 71 INTERPRETIVE STATEMENTS: Atrial fibrillation with rapid ventricular response with premature ventricular or aberrantly conducted complexes Nonspecific T wave abnormality, probably digitalis effect Abnormal ECG Compared to ECG 10/10/2021 06:21:01 Ventricular premature complex(es) now present Sinus rhythm no longer present Possible ischemia no longer present T-wave abnormality still present Electronically Signed On 07-15-22 13:44:29 UNDERGROUND CONDUIT INSTALLER by Deepak Goodrich
[2022-07-15] MEDS: Ringers Lactate 1,000 ML IV SCH (15:03)
[2022-07-15] MEDS: ALBUTEROL 2.5 MG/3 ML NEB SOL NEB PRN (18:57)
[2022-07-15] MEDS: TAMSULOSIN 0.4 MG SR CAP PO SCH (21:28)
[2022-07-15] MEDS: DOCUSATE NA 100 MG CAP PO SCH (21:28)
[2022-07-15] MEDS: MELATONIN 5 MG TABLET PO SCH (21:29)
--- NOTE | 2022-07-15 22:05 | P.PN ---
Date of Service: 07/15/22 Subjective patient has a pneumonia. Patient also with acute on chronic kidney disease. Patient with end-stage COPD and he states he is realizes that he does not have much time but he would want to get treatment for his renal failure including hemodialysis if he needed it. Patient does not want a proceed with hospice care at this time. Will continue with antibiotics and breathing treatments and will monitor his renal function closely. Hopefully, patient can turn around and start feeling better over the next 48-72 hours Physical Examination - Vital Signs Reviewed - Physical Exam General: Alert, In no apparent distress Respiratory: Expiratory wheezes Cardiovascular: Regular rate/rhythm, Normal S1 S2 Gastrointestinal: Normal bowel sounds, No tenderness Neurological: Normal speech, Normal strength at 5/5 x4 extr, Normal tone, Normal affect Assessment and Plan - Problems (Diagnosis) (1) Pneumonia Current Visit: Yes Status: Acute Qualifiers: Pneumonia type: due to unspecified organism Laterality: right Lung location: unspecified part of lung Qualified Code(s): J18.9 - Pneumonia, unspecified organism (2) Afib Current Visit: Yes Status: Chronic Qualifiers: Atrial fibrillation type: paroxysmal Qualified Code(s): I48.0 - Paroxysmal atrial fibrillation (3) Acute kidney injury superimposed on chronic kidney disease Current Visit: Yes Status: Acute (4) COPD exacerbation Current Visit: Yes Status: Acute (5) CAD (coronary artery disease) Current Visit: Yes Status: Chronic Qualifiers: Coronary Disease-Associated Artery/Lesion type: [place] artery [place] vs. transplanted heart: [place] heart Associated angina: without angina Qualified Code(s): I25.10 - Atherosclerotic heart disease of [place] coronary artery without angina pectoris (6) Diabetes mellitus Current Visit: Yes Status: Chronic Qualifiers: Diabetes mellitus type: type 2 Diabetes mellitus intermediate manager insulin use: without penitentiary use Diabetes mellitus complication status: with kidney complications Diabetes mellitus complication detail: with chronic kidney disease Chronic kidney disease stage: stage 4 (severe) Qualified Code(s): E11.22 - Type 2 diabetes mellitus with diabetic chronic kidney disease; N18.4 - Chronic kidney disease, stage 4 (severe) (7) Dyslipidemia Current Visit: Yes Status: Chronic (8) HTN (hypertension) Current Visit: Yes Status: Chronic Qualifiers: Hypertension type: primary hypertension Qualified Code(s): I10 - Essential (primary) hypertension - Plan 1. Continue with IV antibiotics 2. Awaiting sputum and blood culture 3. Repeat chest x-ray 4. Will proceed with CT scan of the chest if pneumonia is not improved 5. Pulmonary consultation along with Nephrology consultation for renal failure 6. Continue with nebs as needed 7. O2 per protocol 8. Hep-Lock IV 9. Repeat labs 10. GI and DVT prophylaxis
[2022-07-16] MEDS: METHYLPREDNISOLONE 40 MG INJ IV SCH ×3 (00:43→21:07)
[2022-07-16 06:16] LABS: Absolute Lymphocytes (CBC) 0.4 K/uL (0.7-4.9); Lymphocytes % 3.9 % (15.3-44.8); MCV 89.3 fL (80-100); MPV 7.5 fL (7.6-11.3); RBC Red Blood Cell Count 3.25 M/uL (4.33-5.43)
[2022-07-16 06:35] LABS: Potassium 3.8 mmol/L (3.5-5.1)
[2022-07-16] MEDS: INSULIN -REGULAR HUMAN 50 UNIT/0.5 ML ML SQ SCH ×4 (07:30→21:06)
[2022-07-16] MEDS ORDERED: NA CHLORIDE 0.9% 250 ML ONE (08:13)
[2022-07-16] MEDS ORDERED: EPOETIN ALFA 10,000 UNIT/ML VIAL SQ ONE (09:15)
[2022-07-16] MEDS: Ringers Lactate 1,000 ML IV SCH ×2 (10:18→18:22)
[2022-07-16] MEDS: AZITHROMYCIN IV 500 MG in NA CHLORIDE 0.9% 250 ML IVPB SCH (10:19)
[2022-07-16] MEDS: HEPARIN 5000 UNIT/ML 1 ML VIAL SQ SCH (10:20)
[2022-07-16] MEDS: DOCUSATE NA 100 MG CAP PO SCH ×2 (10:21→21:05)
[2022-07-16] MEDS: ALBUTEROL 2.5 MG/3 ML NEB SOL NEB PRN ×2 (12:31→21:49)
[2022-07-16] MEDS: IPRATROPIUM BROM 0.5MG/2.5ML NEB PRN ×2 (12:31→21:49)
[2022-07-16 12:58] LABS: Renal Epithelial <5 /HPF (None Seen); Specific Gravity 1.014 (1.005-1.030); UR CL RANDOM < 12 mmol/L (25-40); UR SODIUM < 15 mmol/L (27-287); Urine Bacteria <20 /HPF (<20); Urine Bilirubin NEGATIVE (Negative); Urine Blood 2+ (Negative); Urine Clarity Turbid (Clear); Urine Color Yellow (Yellow); Urine Glucose 1+ (Negative); Urine Mucus Slight /HPF (None Seen); Urine Protein 1+ (Negative); Urine RBC 21-50 /HPF (None Seen); Urine Urobilinogen Normal (Normal); Urine WBC Clump Moderate /HPF (None Seen); Urine pH 5.5 (5.0-7.0)
[2022-07-16] MEDS ORDERED: VANCOMYCIN 1.75 GM in NA CHLORIDE 0.9% 500 ML IVPB ONE (13:00)
[2022-07-16 13:09] LABS: UR PROTEIN 100.2 mg/dL (<11.9); Urine Protein/Creatinine Ratio 1.22 ratio (<0.15)
--- NOTE | 2022-07-16 13:20 | P.PN ---
Subjective Date of Service: 07/16/22 Primary Care Provider: [place] Chief Complaint: Pneumonia, COPD, JAZZY No acute events overnight. He reports decreased urine output. He denies any dysuria. He has not had any chest pain or palpitations. Review of Systems 10-point ROS is otherwise unremarkable Genitourinary: Urgency, Other (decreased output) Physical Examination - Vital Signs Temperature: 97.1 F Blood Pressure: 126/57 Pulse: 67 Respirations: 16 Pulse Ox (%): 97 - Physical Exam General: Alert, In no apparent distress, Oriented x3 HEENT: Atraumatic, PERRLA, Mucous membr. moist/pink, EOMI, Sclerae nonicteric Neck: JVD not distended Respiratory: Clear to auscultation bilaterally, Normal air movement Cardiovascular: No edema, Regular rate/rhythm, Normal S1 S2, No gallops, No rubs, No murmurs Gastrointestinal: Normal bowel sounds, Soft and benign, Non-distended, No tenderness, No rebound, No guarding Musculoskeletal: No clubbing Integumentary: No rashes Neurological: Normal speech, Cranial nerves 3-12 intact, Normal affect Assessment And Plan - Plan # Severe Sepsis likely secondary to Gram-Positive Urinary Tract Infection and Bilateral Community-Acquired Pneumonia He initially met criteria based on HR > 90 bpm and RR > 20 breaths/min, and the suspected source is UTI and/or CAP. Severe sepsis is suspected due to concern for tissue hypoperfusion/organ dysfunction based on creatinine >2.0 mg/dL (without ESRD) and coagulopathy (INR > 1.5). Plan: - Sepsis order set was initiated - Initial Lactate was 1.4 - Blood cultures drawn - Broad spectrum antibiotics started: Vancomycin + Ceftriaxone - In regards to fluids: - 30 mL/kg of IV fluids was not administered given SBP > 90, MAP > 65, lactic acid < 4 - CT chest = "consolidated pneumonia in the medial and posterior left lower lobe. Less prominent pneumonia changes are present in the right lower lobe with very minimal right upper and right middle lobe infiltrates. Numerous mediastinal lymph nodes most likely reactive from the bilateral pneumonia findings." - Urine culture = coagulase-positive Staphylococcus # KDIGO Stage II Acute Kidney Injury on Chronic Kidney Disease Stage IV # Monoclonal Gammopathy # S/P Left Nephrectomy (1994) # Microscopic Hematuria # History of Bladder Cancer - Consulted Nephrology and spoke with Dr. Aglieco - recommendations appreciated - IV Lactated Ringers' @ 50 mL/hr - Creatinine = 4.23 -> 4.46 -> 5.26 (creatinine was on 2.68 on 10/10/2021) - Urinalysis = 2+ blood, 500 leukocyte esterase, 21-50 RBCs, >50 WBCs - Ordered renal ultrasound - Monitor creatinine and urine output - Renally dose medications - Ordered SPEP/UPEP given protein-albumin dissociation # Acute Chronic Obstructive Pulmonary Disease Exacerbation Possibly triggered by infection. - Albuterol + Ipratropium q6hr - Continue methylprednisolone - Consulted Respiratory Therapy - Supplemental oxygen to maintain SpO2 > 92% - Assess inhaler technique one improved from COPD exacerbation # Paroxysmal Atrial Fibrillation with Rapid Ventricular Response # Coronary Artery Disease s/p PCI # Peripheral Artery Disease # Chronic Compensated Diastolic Congestive Heart Failure # Hypertension # Dyslipidemia His [id number] = 6 (CHF=1, HTN=1, Age>75=2, DM=1, CAD/PAD=1), which warrants anticoagulation. - Currently rate-controlled - Started systemic enoxaparin # Steroid-Induced Hyperglycemia in Type II Diabetes Mellitus - Correction scale insulin # Benign Prostatic Hyperplasia s/p LUTS - Continue tamsulosin # Tobacco Use Disorder - Tobacco cessation counseling provided Quinn Albert M.D.
--- NOTE | 2022-07-16 14:26 | RAD REPORT ---
EXAM DESCRIPTION: US - Renal Ultrasound-Complete - 07/16/2022 2:18 pm CLINICAL HISTORY: Acute renal insufficiency COMPARISON: 2020 FINDINGS: The right kidney measures 9 cm with a normal echotexture. Left nephrectomy Hydronephrosis is not seen. No gross abnormality of bladder IMPRESSION: Left nephrectomy Unremarkable right renal ultrasound
[2022-07-16] MEDS: ACETAMINOPHEN 325 MG TABLET PO PRN (17:23)
[2022-07-16] MEDS: JUVEN PACKET PO SCH (21:00)
[2022-07-16] MEDS: MELATONIN 5 MG TABLET PO SCH (21:05)
[2022-07-16] MEDS: TAMSULOSIN 0.4 MG SR CAP PO SCH (21:05)
--- NOTE | 2022-07-16 22:33 | P.PN ---
Date of Service: 07/16/22 Vital Signs Temp Pulse Resp BP Pulse Ox 97.0 F 69 16 110/53 L 95 07/16/22 16:00 07/16/22 16:00 07/16/22 16:00 07/16/22 16:00 07/16/22 16:00 Medications Acetaminophen (Acetaminophen 325 Mg Tablet) 650 mg PO Q4HP PRN PRN Reason: Pain scale 2-4 (Mild) Last Admin: 07/16/22 17:23 Dose: 650 mg Albuterol Sulfate (Albuterol 2.5 Mg/3 Ml Neb Nanda) 2.5 mg NEB [id number] PRN PRN Reason: SHORTNESS OF BREATH Last Admin: 07/16/22 12:31 Dose: 2.5 mg Docusate Sodium (Docusate Na 100 Mg Cap) 100 mg PO BID [facility] Last Admin: 07/16/22 21:05 Dose: 100 mg Enoxaparin Sodium (Enoxaparin 80 Mg/0.8 Ml) 80 mg SQ BEDTIME [facility] Ergocalciferol (Drisdol (Vitamin D=Ergocalciferol) 03807 Unit Cap) 50,000 unit PO Q7D@0900 [facility] Last Admin: 07/15/22 15:03 Dose: 50,000 unit Vancomycin HCl 1 gm/ Sodium (Chloride) 250 mls @ 250 mls/hr IVPB Q72H SARAH Ceftriaxone Sodium 1,000 mg/ (Sodium Chloride) 50 mls @ 100 mls/hr IVPB DAILY SARAH; Protocol Lactated Ringer's (Lactated Ringers) 1,000 mls @ 100 mls/hr IV .Q10H [facility] Last Admin: 07/16/22 18:22 Dose: 1,000 mls Insulin Human Regular (Insulin -Regular Human 50 Unit/0.5 Ml Ml) 0 unit SQ ACHS SARAH; Protocol Last Admin: 07/16/22 21:06 Dose: 2 unit Ipratropium Hamilton (Ipratropium Brom 0.5mg/2.5ml) 0.5 mg NEB [id number] PRN PRN Reason: SHORTNESS OF BREATH Last Admin: 07/16/22 12:31 Dose: 0.5 mg L-Arginine/L-Glutamine/HMB (Savage Packet) 1 pkt PO BID [facility] Last Admin: 07/16/22 21:00 Dose: 1 pkt Melatonin (Melatonin 5 Mg Tablet) 5 mg PO BEDTIME [facility] Last Admin: 07/16/22 21:05 Dose: 5 mg Methylprednisolone Sodium Succinate (Methylprednisolone 40 Mg Inj) 40 mg IV Q12HR [facility] Last Admin: 07/16/22 21:07 Dose: 40 mg Ondansetron HCl (Ondansetron 4 Mg/2 Ml Vial) 4 mg IV Q6HP PRN PRN Reason: NAUSEA / VOMITING Sodium Chloride (Flush Normal Saline 10 Ml) 10 ml IV BID [facility] Last Admin: 07/16/22 21:00 Dose: Not Given Tamsulosin HCl (Tamsulosin 0.4 Mg Sr Cap) 0.4 mg PO BEDTIME [facility] Last Admin: 07/16/22 21:05 Dose: 0.4 mg Microbiology Results 07/14/22 17:21 Clean Catch Urine Juliette Count - Preliminary >100,000 CFU/ML. 07/14/22 17:21 Clean Catch Urine - Preliminary 07/14/22 17:15 Blood - Blood Aerobic Blood Culture - Preliminary No growth in 24 hours. 07/14/22 17:15 Blood - Blood Anaerobic Blood Culture - Preliminary No growth in 24 hours. 07/14/22 17:06 Blood - Blood Aerobic Blood Culture - Preliminary No growth in 24 hours. 07/14/22 17:06 Blood - Blood Anaerobic Blood Culture - Preliminary No growth in 24 hours. Assessment/ Plan: Nephrology No dyspnea No chest pain Feeling better today. +Appetite No acute events overnight Vitals, medications, blood work and imaging reviewed in the chart. General: In no apparent distress, Oriented x3, Cooperative HEENT: Atraumatic Neck: Supple Respiratory: Other (Coarse Breath Sounds with scattered wheeze) Cardiovascular: No edema, No rubs Gastrointestinal: Hypoactive, Non-distended Musculoskeletal: No clubbing, No contractures Integumentary: No rashes, No cyanosis Neurological: Normal speech Laboratory Data (last 24 hrs) 07/14/22 17:06: PT 20.8 H, INR 1.89, APTT 35.4 07/14/22 17:06: Sodium 134 L, Potassium 3.6, BUN 59 H, Creatinine 4.23 H, Gluc ose 146 H, Total Bilirubin 0.8, AST 30, ALT 36, Alkaline Phosphatase 154 H 07/14/22 17:06: WBC 11.90 H, Hgb 11.2 L, Hct 33.7 L, Plt Count 333 Imagings Data: EXAM DESCRIPTION: CT - Thorax Wo Con - 07/15/2022 9:40 am CLINICAL HISTORY: pneumonia COMPARISON: Chest Single View dated 07/14/2022 TECHNIQUE: Axial 5 mm thick images of the chest were obtained without IV contrast. All CT scans are performed using dose optimization technique as appropriate and may include automated exposure control or mA/KV adjustment according to patient size. FINDINGS: Dense consolidation with air bronchogram formation is seen in the medial aspect of the mid and lower portions of the left lower lobe. Consolidation extends into the posterior gutter. Left upper lobe is clear of any significant finding. Patchy areas of airspace opacification are scattered in the right upper lobe and very minimally in the right middle lobe. Slightly more prominent interstitial and alveolar opacities are present in the right lower lobe. Mild bronchial wall thickening changes are present. No underlying suspicious mass. There is no cavitation. Trace amounts of pleural fluid are seen in each lung field posteriorly. No pneumothorax. Multiple small noncalcified mediastinal and hilar lymph nodes are present most likely reactive. No acute aortic finding evident. Aorta and pulmonary arterial tree assessment is limited in the absence of contrast. No pericardial thickening or effusion. Patient has dense coronary artery calcifications. No chest wall mass or abnormal axillary lymphadenopathy. IMPRESSION: Consolidated pneumonia in the medial and posterior left lower lobe. Less prominent pneumonia changes are present in the right lower lobe with very minimal right upper and right middle lobe infiltrates. Numerous mediastinal lymph nodes most likely reactive from the bilateral pneumonia findings. EXAM DESCRIPTION: US - Renal Ultrasound-Complete - 08/08/2021 3:36 am CLINICAL HISTORY: JAZZY COMPARISON: Renal Ultrasound-Complete dated 11/04/2018; CT-STONE PROTOCOL dated 06/30/2010 FINDINGS: The right kidney measures 9.7 x 4.5 x 5.1 cm. The left kidney is absent. Renal cortical thickness and echogenicity are normal. No hydronephrosis or suspicious renal mass. The small 15 millimeter cyst present in the upper pole right kidney with no suspicious characteristics. No bladder wall thickening or mass. No intraluminal stone or mass. IMPRESSION: No hydronephrosis or suspicious renal mass. No bladder abnormality identified. COMMENTS: NORMAL LEFT VENTRICULAR EJECTION FRACTION 55-60% WITH NORMAL WALL MOTION. MODERATE DIASTOLIC DYSFUNCTION. MILD MITRAL REGURGITATION. MILD AORTIC INSUFFIENCY. Conclusions/Impression: Stage I JAZZY likely due to hypovolemia and may be complicated by ATN CKD IV with proteinuria Left nephrectomy 1994 -No NSAIDs -Increase IVF Hypovolemic Hyponatremia -Encourage nutrition HTN with CKD/ CHF complicated hypotension -Hold Nifedipine at this time Diastolic CHF, chronic -Daily weight DM II with polyneuropathy and CKD Exacerbated by IV steroids -RISS Anemia in chronic illness Iron Deficiency -Monitor H&H -Consider IV iron CKD MBD -Continue Ergo qwk BPH with LUTS -Continue Flomax qhs Slow transit constipation -Continue Colace BID BL PNA COPD with exacerbation -Continue Abx -Continue steroids -Neb prn
[2022-07-17] MEDS: Ringers Lactate 1,000 ML IV SCH ×2 (00:52→11:53)
[2022-07-17 06:02] LABS: Absolute Lymphocytes (CBC) 0.3 K/uL (0.7-4.9); Hematocrit 28.6 % (39.6-49.0); Lymphocytes % 3.4 % (15.3-44.8); MCV 89.2 fL (80-100); MPV 7.3 fL (7.6-11.3)
[2022-07-17 06:22] LABS: Potassium 4.2 mmol/L (3.5-5.1)
[2022-07-17] MEDS: INSULIN -REGULAR HUMAN 50 UNIT/0.5 ML ML SQ SCH ×4 (07:30→21:00)
[2022-07-17] MEDS ORDERED: EPOETIN ALFA-EPBX 10,000 UNIT/ML VIAL SQ ONE (07:30)
[2022-07-17] MEDS: DOCUSATE NA 100 MG CAP PO SCH ×2 (08:18→21:40)
[2022-07-17] MEDS: METHYLPREDNISOLONE 40 MG INJ IV SCH ×2 (08:19→21:41)
[2022-07-17] MEDS: JUVEN PACKET PO SCH (08:19)
[2022-07-17] MEDS ORDERED: CEFTRIAXONE 1,000 MG in NA CHLORIDE 0.9% 50 ML IVPB SCH (09:00)
[2022-07-17] MEDS ORDERED: LINEZOLID 600 MG IVPB 600 MG/300 ML BAG IV SCH (09:00)
[2022-07-17] MEDS: CEFEPIME 1 GM in NA CHLORIDE 0.9% 100 ML IV SCH (11:53)
--- NOTE | 2022-07-17 12:24 | P.PN ---
Nephrology note (S) Pt reports that shortness of breath at rest is a bit worse today although no resp distress noted, pt reports urinary frequency, voiding otherwise on his own. Renal u/s and CT reports reviewed. Renal function tests discussed in detail with pt and with over facetime and discussed indications for HD initiation. Vitals, medications, blood work and imaging reviewed in the chart. General: In no apparent distress, Oriented x3, Cooperative HEENT: Atraumatic, sclera anicteric, NC Neck: Supple Respiratory: b/l air entry, scattered rales, non tachypnec Cardiovascular: RRR mostly, no cardiac gallops Gastrointestinal: Soft, ND, NT Musculoskeletal: No clubbing, No contractures, no LE edema Integumentary: No rashes, No cyanosis Neurological: Normal speech, awake, alert, responsive Laboratory Data (last 24 hrs) Reviewed Imagings Data: EXAM DESCRIPTION: CT - Thorax Wo Con - 07/15/2022 9:40 am CLINICAL HISTORY: pneumonia COMPARISON: Chest Single View dated 07/14/2022 TECHNIQUE: Axial 5 mm thick images of the chest were obtained without IV contrast. All CT scans are performed using dose optimization technique as appropriate and may include automated exposure control or mA/KV adjustment according to patient size. FINDINGS: Dense consolidation with air bronchogram formation is seen in the medial aspect of the mid and lower portions of the left lower lobe. Consolidation extends into the posterior gutter. Left upper lobe is clear of any significant finding. Patchy areas of airspace opacification are scattered in the right upper lobe and very minimally in the right middle lobe. Slightly more prominent interstitial and alveolar opacities are present in the right lower lobe. Mild bronchial wall thickening changes are present. No underlying suspicious mass. There is no cavitation. Trace amounts of pleural fluid are seen in each lung field posteriorly. No pneumothorax. Multiple small noncalcified mediastinal and hilar lymph nodes are present most likely reactive. No acute aortic finding evident. Aorta and pulmonary arterial tree assessment is limited in the absence of contrast. No pericardial thickening or effusion. Patient has dense coronary artery calcifications. No chest wall mass or abnormal axillary lymphadenopathy. IMPRESSION: Consolidated pneumonia in the medial and posterior left lower lobe. Less prominent pneumonia changes are present in the right lower lobe with very minimal right upper and right middle lobe infiltrates. Numerous mediastinal lymph nodes most likely reactive from the bilateral pneumonia findings. EXAM DESCRIPTION: US - Renal Ultrasound-Complete - 08/08/2021 3:36 am CLINICAL HISTORY: JAZZY COMPARISON: Renal Ultrasound-Complete dated 11/04/2018; CT-STONE PROTOCOL dated 06/30/2010 FINDINGS: The right kidney measures 9.7 x 4.5 x 5.1 cm. The left kidney is absent. Renal cortical thickness and echogenicity are normal. No hydronephrosis or suspicious renal mass. The small 15 millimeter cyst present in the upper pole right kidney with no suspicious characteristics. No bladder wall thickening or mass. No intraluminal stone or mass. IMPRESSION: No hydronephrosis or suspicious renal mass. No bladder abnormality identified. COMMENTS: NORMAL LEFT VENTRICULAR EJECTION FRACTION 55-60% WITH NORMAL WALL MOTION. MODERATE DIASTOLIC DYSFUNCTION. MILD MITRAL REGURGITATION. MILD AORTIC INSUFFIENCY. Conclusions/Impression: Stage III ARF per BARBRA def as Cr level > 4 mg/dl on underling CKD IV with solitary kidney state (Rt kidney, 9 cm with remote Lt nephrectomy for urothelial carcinoma or related) vs progressive CKD. Marked azotemia with likely some early uremic symptoms. Even though some worsening of kidney function may be related to hemodynamic factors, infections and azotemia worsened on steroids, his baseline GFR state appears to have been low and it is reasonable to consider proceed with HD initiation. If HD initiated, would recommend via TDC rather than temp catheter. Emergent STENCIL CUTTER MACHINE is not required today, will discuss case further with Dr. Carrillo and Dr. Albert PNA, b/l, unspecified organism -Cont Abx, supportive care UTI site unspecified, POA -MRSA on UCx, pt on Vanc, monitor levels closely or consider switching to Linezolid if appropriate Diastolic CHF, chronic. MR, non rheumatic -Stop IVF, CT scan did report some interstitial prominence and with pt's marginal kidney function and worsening, do not want to risk overload developing Anemia in chronic illness, CKD -Trend H/H closely Tung La MD, BRISSA
--- NOTE | 2022-07-17 16:10 | CON ---
History Of Present Illness: This is a 77-year-old male, seen for MRSA infection of the urine and pne [facility]. The patient has a long-standing history of COPD secondary to smoking, currently on home oxyg en of 2 L, coming in to the hospital on July 14 with worsening shortness of breath, cough, and s putum production of 3 days prior to admission. The patient was found to be in renal failure as he herzog s only right kidney. He had left-sided nephrectomy for cancer. Currently, the patient has been give n 1 dose of vancomycin and Rocephin for pneumonia. Past Medical History: COPD, diabetes mellitus, CKD, dyslipidemia, coronary artery disease, monoclona l gammopathy, peripheral vascular disease, aortic aneurysm, history of bladder cancer, neuropathy, hy pertension, left nephrectomy secondary to cancer in 1994, status post stent placement, peripheral vas cular disease. Social History: Tobacco use, last time 3 years ago. Alcohol negative. Social history is noncontrib utory. Medications: Vancomycin, Rocephin. See MAR for other medications. Allergies: TO CODEINE AND SULFA. Review of Systems: A 10-point review was performed. Physical Examination: General: This is a 77-year-old male, sitting in bed, very pleasant to talk to. Vital Signs: Temperature 97, pulse 92, respiration 20, blood pressure 135/77. HEENT: Unremarkable. Currently on 3 L nasal cannula. Neck: Supple. Lungs: Right-sided crackles and scattered rhonchi, left base crackles noted. Heart: S1, S2. Regular. Abdomen: Soft. Bowel sounds present. Extremity: No edema. Laboratory Data: Shows WBC 10.1 with highest count of 11.9 on July 14, hemoglobin 9.5, platelets 311. Chemistry shows BUN of 125, creatinine 5.4, glucose is 187. Albumin level is 2.2. CT of the c hest shows consolidated pneumonia in the medial and posterior left lower lobe. Less prominent pneumo christiano changes are present in the right lower lobe with very minimal right upper and right middle lobe i nfiltrates. Numerous mediastinal lymph nodes, most likely reactive from bilateral pneumonia finding. Urine cultures from 07/14 showing MRSA, sensitive to vancomycin, tetracycline, nitrofurantoin and B actrim. Assessment/plan: 1.Bilateral pneumonia, right more than left. We will recommend to send sputum sample for cultures. Start the patient on cefepime. Discontinue Rocephin. Also monitor vancomycin level and give adjust ed doses to prevent any further renal damage or substitute with Zyvox or daptomycin. 2.Renal failure. 3.Leukocytosis, improving. 4.Anemia of chronic disease. 5.Chronic obstructive pulmonary disease. 6.Moderate protein-calorie malnourishment. Continue current treatment. Total course should be 10 d ays. For urinary tract infection, 7 days treatment should be suffice. We will follow the patient yesenia osely. Thank you, Dr. Albert for consult. NF/MODL Voice ID: [id number] Report ID: [id number]
--- NOTE | 2022-07-17 16:39 | P.PN ---
Subjective Date of Service: 07/17/22 Primary Care Provider: ND Chief Complaint: Pneumonia, COPD, JAZZY No acute events overnight. He reports that he feels well, and he denies any dysuria, frequency, or urgency. His creatinine and BUN continue to worsen. Review of Systems 10-point ROS is otherwise unremarkable Physical Examination - Vital Signs Temperature: 97.5 F Blood Pressure: 154/74 Pulse: 90 Respirations: 20 Pulse Ox (%): 98 Assessment And Plan - Plan - Physical Exam General: Alert, In no apparent distress, Oriented x3 HEENT: Atraumatic, PERRLA, Mucous membr. moist/pink, EOMI, Sclerae nonicteric Neck: JVD not distended Respiratory: Clear to auscultation bilaterally, Normal air movement Cardiovascular: No edema, Regular rate/rhythm, Normal S1 S2, No gallops, No rubs, No murmurs Gastrointestinal: Normal bowel sounds, Soft and benign, Non-distended, No tenderness, No rebound, No guarding Musculoskeletal: No clubbing Integumentary: No rashes Neurological: Normal speech, Cranial nerves 3-12 intact, Normal affect # Severe Sepsis likely secondary to Methicillin-Resistant Staphylococcus Aureus Urinary Tract Infection and Bilateral Community-Acquired Pneumonia He initially met criteria based on HR > 90 bpm and RR > 20 breaths/min, and the suspected source is UTI and/or CAP. Severe sepsis is suspected due to concern for tissue hypoperfusion/organ dysfunction based on creatinine >2.0 mg/dL (without ESRD) and coagulopathy (INR > 1.5). Plan: - Sepsis order set was initiated - Initial Lactate was 1.4 - Blood cultures drawn - Broad spectrum antibiotics started: Vancomycin + Cefepime - In regards to fluids: - 30 mL/kg of IV fluids was not administered given SBP > 90, MAP > 65, lactic acid < 4 - CT chest = "consolidated pneumonia in the medial and posterior left lower lobe. Less prominent pneumonia changes are present in the right lower lobe with very minimal right upper and right middle lobe infiltrates. Numerous mediastinal lymph nodes most likely reactive from the bilateral pneumonia findings." - Urine culture = methicillin-resistant Staphylococcus Aureus - Consulted Infectious Diseases and spoke with Dr. Ibarra - recommendations appreciated # KDIGO Stage III Acute Kidney Injury on Chronic Kidney Disease Stage IV # Monoclonal Gammopathy # S/P Left Nephrectomy (1994) # Microscopic Hematuria # History of Bladder Cancer - Consulted Nephrology and spoke with Dr. La - recommendations appreciated - Stated that he will review the possibility of iHD with Dr. Carrillo - They will speak with Mr. López regarding this - Creatinine = 4.23 -> 4.46 -> 5.26 -> 5.42 (creatinine was on 2.68 on 10/10/2021) - Urinalysis = 2+ blood, 500 leukocyte esterase, 21-50 RBCs, >50 WBCs - Renal ultrasound = "Left nephrectomy. Unremarkable right renal ultrasound" - Monitor creatinine and urine output - Renally dose medications - Ordered SPEP/UPEP given protein-albumin dissociation # Acute Chronic Obstructive Pulmonary Disease Exacerbation Possibly triggered by infection. - Albuterol + Ipratropium q6hr - Continue methylprednisolone - Consulted Respiratory Therapy - Supplemental oxygen to maintain SpO2 > 92% - Assess inhaler technique one improved from COPD exacerbation # Paroxysmal Atrial Fibrillation with Rapid Ventricular Response # Coronary Artery Disease s/p PCI # Peripheral Artery Disease # Chronic Compensated Diastolic Congestive Heart Failure # Hypertension # Dyslipidemia His [id number] = 6 (CHF=1, HTN=1, Age>75=2, DM=1, CAD/PAD=1), which warrants anticoagulation. - Currently rate-controlled - Started systemic enoxaparin # Steroid-Induced Hyperglycemia in Type II Diabetes Mellitus - Correction scale insulin # Benign Prostatic Hyperplasia s/p LUTS - Continue tamsulosin # Tobacco Use Disorder - Tobacco cessation counseling provided Quinn Albert M.D.
[2022-07-17] MEDS ORDERED: VANCOMYCIN 1 GM in NA CHLORIDE 0.9% 250 ML IVPB SCH (17:00)
[2022-07-17] MEDS: AMINO ACIDS/PROTEIN HYDROLYS 30 ML LIQUID.PKT PO SCH (21:00)
[2022-07-17] MEDS: MELATONIN 5 MG TABLET PO SCH (21:40)
[2022-07-17] MEDS: ENOXAPARIN 80 MG/0.8 ML SQ SCH (21:40)
[2022-07-17] MEDS: TAMSULOSIN 0.4 MG SR CAP PO SCH (21:40)
[2022-07-18 03:55] LABS: Absolute Lymphocytes (CBC) 0.4 K/uL (0.7-4.9); Hematocrit 30.7 % (39.6-49.0); Lymphocytes % 3.4 % (15.3-44.8); MCV 89.6 fL (80-100); MPV 7.2 fL (7.6-11.3); RBC Red Blood Cell Count 3.43 M/uL (4.33-5.43)
[2022-07-18 04:02] LABS: Phosphorus 3.6 mg/dL (2.5-4.9); Potassium 4.9 mmol/L (3.5-5.1)
[2022-07-18] MEDS: INSULIN -REGULAR HUMAN 50 UNIT/0.5 ML ML SQ SCH ×4 (07:30→22:48)
[2022-07-18] MEDS ORDERED: CEFAZOLIN 1 GM in NA CHLORIDE 0.9% 50 ML IVPB SCH (08:00)
[2022-07-18] MEDS ORDERED: CEFAZOLIN SODIUM 1 GM/VIAL ONE (08:44)
[2022-07-18] MEDS ORDERED: NA CHLORIDE 0.9% 500 ML ONE (08:44)
[2022-07-18] MEDS ORDERED: FENTANYL CITR 100 MCG/2 ML ONE (08:46)
[2022-07-18] MEDS ORDERED: LIDOCAINE 1% MPF 5 ML VIAL ONE (08:47)
[2022-07-18] MEDS ORDERED: propofoL 200 MG/20 ML VIAL IV ONE (08:47)
[2022-07-18] MEDS ORDERED: NS 0.9% VIAL 10 ML ONE ×3 (08:53→09:49)
[2022-07-18] MEDS ORDERED: HEPARIN 5000 UNIT/ML 1 ML VIAL ONE (08:53)
[2022-07-18] MEDS ORDERED: LIDOCAINE 1% 20 ML MDV ONE (08:54)
[2022-07-18] MEDS ORDERED: NA CHLORIDE 0.9% 100 ML IV ONE (08:54)
--- NOTE | 2022-07-18 08:55 | P.CNS ---
Date of Consult: 07/18/22 Reason for consult: Patient needs dialysis History of present illness: Patient is a 77-year-old gentleman with acute renal failure requiring a tunneled catheter for dialysis. Patient is awake and alert. Patient is complaining of frequency with urination. Patient has no fever, chills, sore throat, runny nose, cough, headache or chest pain. Review of systems: Otherwise unremarkable Past medical history: Hypertension, diabetes, COPD, history of bladder cancer, peripheral vascular disease, AAA and chronic renal disease Past surgical history: Nephrectomy, and stent placement Allergies: Codeine and sulfa Social history: Former smoker currently does not smoke or drink alcohol Family history: Noncontributory Vital signs: Stable, afebrile Physical exam: Awake alert oriented x3 Head and neck exam: No masses Chest: Clear Heart: S1-S2 Abdomen: Soft Extremity: Neurovascular intact, nontender Neuro: Nonfocal Diagnostic data: Reviewed Assessment: Acute renal failure Plan/recommendation: Placement of a tunneled dialysis catheter. Patient understands risk benefits alternatives and agrees to procedure. CC: Dr. La's office
[2022-07-18] MEDS ORDERED: Phenylephrine HCl 10 MG/ML 1 ML VIAL ONE (09:49)
[2022-07-18] MEDS ORDERED: Mastisol Adhesive Liq ONE ×2 (10:02→10:03)
--- NOTE | 2022-07-18 10:11 | P.OP ---
Date of Service: 07/18/22 Preop diagnosis: Acute renal failure Postop diagnosis: Same Procedure performed: Placement of a tunneled dialysis catheter, interpretation of intraoperative fluoroscopy Surgeon: Tirso Kaminski MD Wedding Transportation Driver: None Estimated blood loss: Minimal Specimen: None Findings: Normal anatomy Anesthesia: General Complications: None Drains: None Fluids and blood products: Nonapplicable Disposition: Recovery room Operative note: Patient brought to the OR and placed in the supine position. General anesthesia begun. Patient prepped and draped in the usual sterile fashion. Lidocaine 1% infiltrated locally. 18-gauge needle used to access the right internal jugular vein. Guidewire passed. Position confirmed with fluoroscopy. Counter incision made on the right anterior chest. Tunneling device used to tunnel the catheter between the 2 wounds. Seldinger technique utilized. Right IJ vein dilated. Then, the tip of the catheter placed in the SVC. Position confirmed with fluoroscopy. Catheter flushed and packed with heparin with good blood flow. 3-0 chromic used to reapproximate subcutaneous tissue. A 3-0 nylon used to secure the tube to the chest wall. Sterile dressing applied. Patient awakened and taken to recovery room in good general condition. Chest x-ray has been ordered. CC: Dr. La's office
[2022-07-18] MEDS: CEFEPIME 1 GM in NA CHLORIDE 0.9% 100 ML IV SCH (11:00)
--- NOTE | 2022-07-18 11:01 | RAD REPORT ---
EXAM DESCRIPTION: RAD - Fluoroscopy <1 Hour - 07/18/2022 10:43 am FINDINGS: There were 4 portable C-arm views submitted from fluoroscopic assisted placement of a vasc ular access catheter. No suspicious or unexpected findings. Fluoro time was 0.1 minutes with a cumula tive dose of 1.85 mGy.
--- NOTE | 2022-07-18 11:02 | RAD REPORT ---
EXAM DESCRIPTION: RAD - Chest Single View - 07/18/2022 10:39 am CLINICAL HISTORY: Status post tunneled dialysis catheter COMPARISON: Portable 07/14/2022 TECHNIQUE: AP portable chest image was obtained 07/18/2022 10:39 am . FINDINGS: Right-sided Tessio catheter has been placed with the catheter tips in the mid and distal S VC, well-positioned. No pneumothorax. Chronic interstitial lung disease. Cardiomediastinal silhouette is stable. IMPRESSION: Right-sided Tessio catheter in good position. No pneumothorax.
[2022-07-18] MEDS ORDERED: MANNITOL 25% 12.5 GM/50 ML VIAL IV PRN ×2 (11:38→12:18)
[2022-07-18] MEDS ORDERED: NA CHLORIDE 0.9% 1,000 ML IV PRN (11:38)
[2022-07-18] MEDS ORDERED: ALBUMIN HUMAN 25% 50 ML IV SCH (12:00)
[2022-07-18] MEDS: METHYLPREDNISOLONE 40 MG INJ IV SCH ×2 (12:51→22:24)
[2022-07-18] MEDS: DOCUSATE NA 100 MG CAP PO SCH ×2 (12:51→22:23)
[2022-07-18] MEDS: AMINO ACIDS/PROTEIN HYDROLYS 30 ML LIQUID.PKT PO SCH ×2 (12:51→21:00)
[2022-07-18] MEDS ORDERED: VANCOMYCIN 1 GM in NA CHLORIDE 0.9% 250 ML IVPB SCH (13:00)
--- NOTE | 2022-07-18 14:09 | P.PN ---
Subjective Date of Service: 07/18/22 Primary Care Provider: IN Chief Complaint: Pneumonia, COPD, JAZZY No acute events overnight. He reports that he feels tired this morning. He endorses generalized malaise. He underwent TDC placement this morning. Review of Systems 10-point ROS is otherwise unremarkable General: Malaise Physical Examination - Vital Signs Temperature: 96.9 F Blood Pressure: 151/80 Pulse: 87 Respirations: 18 Pulse Ox (%): 99 - Studies Microbiology Data (last 24 hrs): 07/14/22 17:21 Clean Catch Urine [place] Count - Final >100,000 CFU/ML. 07/14/22 17:21 Clean Catch Urine - Final Meth Resistant Staph Aureus Assessment And Plan - Plan - Physical Exam General: Alert, In no apparent distress, Oriented x3 HEENT: Atraumatic, PERRLA, Mucous membr. moist/pink, EOMI, Sclerae nonicteric Neck: JVD not distended Respiratory: Clear to auscultation bilaterally, Normal air movement Cardiovascular: No edema, Regular rate/rhythm, Normal S1 S2, No gallops, No rubs, No murmurs Gastrointestinal: Normal bowel sounds, Soft and benign, Non-distended, No tenderness, No rebound, No guarding Musculoskeletal: No clubbing Integumentary: No rashes Neurological: Normal speech, Cranial nerves 3-12 intact, Normal affect # Severe Sepsis likely secondary to Methicillin-Resistant Staphylococcus Aureus Urinary Tract Infection and Bilateral Community-Acquired Pneumonia He initially met criteria based on HR > 90 bpm and RR > 20 breaths/min, and the suspected source is UTI and/or CAP. Severe sepsis is suspected due to concern for tissue hypoperfusion/organ dysfunction based on creatinine >2.0 mg/dL (without ESRD) and coagulopathy (INR > 1.5). Plan: - Sepsis order set was initiated - Initial Lactate was 1.4 - Blood cultures drawn - Broad spectrum antibiotics started: Vancomycin + Cefepime - Wean per sensitivities - In regards to fluids: - 30 mL/kg of IV fluids was not administered given SBP > 90, MAP > 65, lactic acid < 4 - CT chest = "consolidated pneumonia in the medial and posterior left lower lobe. Less prominent pneumonia changes are present in the right lower lobe with very minimal right upper and right middle lobe infiltrates. Numerous mediastinal lymph nodes most likely reactive from the bilateral pneumonia findings." - Urine culture = methicillin-resistant Staphylococcus Aureus - Consulted Infectious Diseases and spoke with Dr. Ibarra - recommendations appreciated # KDIGO Stage III Acute Kidney Injury on Chronic Kidney Disease Stage IV # Monoclonal Gammopathy # S/P Left Nephrectomy (1994) # Microscopic Hematuria # History of Bladder Cancer - Consulted Nephrology and spoke with Dr. Carrillo - recommendations appreciated - S/P TDC this morning in anticipation for dialysis - Creatinine = 4.23 -> 4.46 -> 5.26 -> 5.42 -> 4.81(creatinine was on 2.68 on 10/10/2021) - Urinalysis = 2+ blood, 500 leukocyte esterase, 21-50 RBCs, >50 WBCs - Renal ultrasound = "Left nephrectomy. Unremarkable right renal ultrasound" - Monitor creatinine and urine output - Renally dose medications - Ordered SPEP/UPEP given protein-albumin dissociation # Acute Chronic Obstructive Pulmonary Disease Exacerbation Possibly triggered by infection. - Albuterol + Ipratropium q6hr - Continue methylprednisolone - Consulted Respiratory Therapy - Supplemental oxygen to maintain SpO2 > 92% - Assess inhaler technique one improved from COPD exacerbation # Paroxysmal Atrial Fibrillation with Rapid Ventricular Response # Coronary Artery Disease s/p PCI # Peripheral Artery Disease # Chronic Compensated Diastolic Congestive Heart Failure # Hypertension # Dyslipidemia His [id number] = 6 (CHF=1, HTN=1, Age>75=2, DM=1, CAD/PAD=1), which warrants anticoagulation. - Currently rate-controlled - Started systemic enoxaparin # Steroid-Induced Hyperglycemia in Type II Diabetes Mellitus - Correction scale insulin # Benign Prostatic Hyperplasia s/p LUTS - Continue tamsulosin # Tobacco Use Disorder - Tobacco cessation counseling provided Quinn Albert M.D.
[2022-07-18] MEDS ORDERED: CEFEPIME 1 GM in NA CHLORIDE 0.9% 100 ML IV SCH (18:00)
[2022-07-18] MEDS: ENOXAPARIN 80 MG/0.8 ML SQ SCH (22:24)
[2022-07-18] MEDS: MELATONIN 5 MG TABLET PO SCH (22:24)
[2022-07-18] MEDS: TAMSULOSIN 0.4 MG SR CAP PO SCH (22:24)
--- NOTE | 2022-07-19 00:11 | P.PN ---
Date of Service: 07/19/22 Vital Signs Temp Pulse Resp BP Pulse Ox 97 F 90 18 142/79 H 93 07/18/22 20:00 07/18/22 20:00 07/18/22 20:00 07/18/22 20:00 07/18/22 20:00 Medications Acetaminophen (Acetaminophen 325 Mg Tablet) 650 mg PO Q4HP PRN PRN Reason: Pain scale 2-4 (Mild) Last Admin: 07/16/22 17:23 Dose: 650 mg Albuterol Sulfate (Albuterol 2.5 Mg/3 Ml Neb Nanda) 2.5 mg NEB [id number] PRN PRN Reason: SHORTNESS OF BREATH Last Admin: 07/16/22 21:49 Dose: 2.5 mg Amino Acids (Amino Acids/Protein Hydrolys 30 Ml Liquid.Pkt) 30 ml PO BID [facility] Last Admin: 07/18/22 21:00 Dose: 30 ml Docusate Sodium (Docusate Na 100 Mg Cap) 100 mg PO BID SARAH Last Admin: 07/18/22 22:23 Dose: 100 mg Enoxaparin Sodium (Enoxaparin 80 Mg/0.8 Ml) 80 mg SQ BEDTIME [facility] Last Admin: 07/18/22 22:24 Dose: 80 mg Ergocalciferol (Drisdol (Vitamin D=Ergocalciferol) 07899 Unit Cap) 50,000 unit PO Q7D@0900 [facility] Last Admin: 07/15/22 15:03 Dose: 50,000 unit Heparin Sodium (Porcine) (Heparin 1,000 Unit/Ml Vial) 4,000 unit IV EVERY HD PRN PRN Reason: DIALYSIS CATHETER CARE Last Admin: 07/18/22 15:51 Dose: 4,000 unit Albumin Human (Albumin 25%) 50 mls @ 100 mls/hr IV EVERY HD [facility] Cefepime HCl 1 gm/ Sodium (Chloride) 100 mls @ 200 mls/hr IV Q24H [facility] Last Admin: 07/18/22 17:05 Dose: 100 mls Vancomycin HCl 1 gm/ Sodium (Chloride) 250 mls @ 250 mls/hr IVPB AFTER EACH DIALYSIS [facility] Last Admin: 07/18/22 17:05 Dose: 250 mls Insulin Human Regular (Insulin -Regular Human 50 Unit/0.5 Ml Ml) 0 unit SQ ACHS [facility]; Protocol Last Admin: 07/18/22 22:48 Dose: 2 unit Ipratropium [place] (Ipratropium Brom 0.5mg/2.5ml) 0.5 mg NEB [id number] PRN PRN Reason: SHORTNESS OF BREATH Last Admin: 07/16/22 21:49 Dose: 0.5 mg Mannitol (Mannitol 25% 12.5 Gm/50 Ml Vial) 25 gm IV EVERY HD PRN PRN Reason: Dialysis Last Admin: 07/18/22 13:49 Dose: 25 gm Melatonin (Melatonin 5 Mg Tablet) 5 mg PO BEDTIME [facility] Last Admin: 07/18/22 22:24 Dose: 5 mg Methylprednisolone Sodium Succinate (Methylprednisolone 40 Mg Inj) 40 mg IV Q12HR SARAH Last Admin: 07/18/22 22:24 Dose: 40 mg Ondansetron HCl (Ondansetron 4 Mg/2 Ml Vial) 4 mg IV Q6HP PRN PRN Reason: NAUSEA / VOMITING Sodium Chloride (Flush Normal Saline 10 Ml) 10 ml IV BID [facility] Last Admin: 07/18/22 22:49 Dose: 10 ml Tamsulosin HCl (Tamsulosin 0.4 Mg Sr Cap) 0.4 mg PO BEDTIME [facility] Last Admin: 07/18/22 22:24 Dose: 0.4 mg Microbiology Results 07/14/22 17:21 Clean Catch Urine [place] Count - Final >100,000 CFU/ML. 07/14/22 17:21 Clean Catch Urine - Final Meth Resistant Staph Aureus 07/14/22 17:15 Blood - Blood Aerobic Blood Culture - Preliminary No growth in 24 hours. 07/14/22 17:15 Blood - Blood Anaerobic Blood Culture - Preliminary No growth in 24 hours. 07/14/22 17:06 Blood - Blood Aerobic Blood Culture - Preliminary No growth in 24 hours. 07/14/22 17:06 Blood - Blood Anaerobic Blood Culture - Preliminary No growth in 24 hours. Assessment/ Plan: Nephrology Seen in post op post CVC HD Limited IH/ ROS due to AMS/ Somnolence No acute events overnight Vitals, medications, blood work and imaging reviewed in the chart. General: In no apparent distress, Oriented x3, Cooperative HEENT: Atraumatic Neck: Supple Respiratory: Other (Coarse Breath Sounds with scattered wheeze) Cardiovascular: No edema, No rubs Gastrointestinal: Hypoactive, Non-distended Musculoskeletal: No clubbing, No contractures Integumentary: No rashes, No cyanosis Neurological: Normal speech Laboratory Data (last 24 hrs) 07/14/22 17:06: PT 20.8 H, INR 1.89, APTT 35.4 07/14/22 17:06: Sodium 134 L, Potassium 3.6, BUN 59 H, Creatinine 4.23 H, Glucose 146 H, Total Bilirubin 0.8, AST 30, ALT 36, Alkaline Phosphatase 154 H 07/14/22 17:06: WBC 11.90 H, Hgb 11.2 L, Hct 33.7 L, Plt Count 333 Imagings Data: EXAM DESCRIPTION: CT - Thorax Wo Con - 07/15/2022 9:40 am CLINICAL HISTORY: pneumonia COMPARISON: Chest Single View dated 07/14/2022 TECHNIQUE: Axial 5 mm thick images of the chest were obtained without IV contrast. All CT scans are performed using dose optimization technique as appropriate and may include automated exposure control or mA/KV adjustment according to patient size. FINDINGS: Dense consolidation with air bronchogram formation is seen in the medial aspect of the mid and lower portions of the left lower lobe. Consolidation extends into the p osterior gutter. Left upper lobe is clear of any significant finding. Patchy areas of airspace opacification are scattered in the right upper lobe and very minimally in the right middle lobe. Slightly more prominent interstitial and alveolar opacities are present in the right lower lobe. Mild bronchial wall thickening changes are present. No underlying suspicious mass. There is no cavitation. Trace amounts of pleural fluid are seen in each lung field posteriorly. No pneumothorax. Multiple small noncalcified mediastinal and hilar lymph nodes are present most likely reactive. No acute aortic finding evident. Aorta and pulmonary arterial tree assessment is limited in the absence of contrast. No pericardial thickening or effusion. Patient has dense coronary artery calcifications. No chest wall mass or abnormal axillary lymphadenopathy. IMPRESSION: Consolidated pneumonia in the medial and posterior left lower lobe. Less prominent pneumonia changes are present in the right lower lobe with very minimal right upper and right middle lobe infiltrates. Numerous mediastinal lymph nodes most likely reactive from the bilateral pneumonia findings. EXAM DESCRIPTION: US - Renal Ultrasound-Complete - 08/08/2021 3:36 am CLINICAL HISTORY: JAZZY COMPARISON: Renal Ultrasound-Complete dated 11/04/2018; CT-STONE PROTOCOL dated 06/30/2010 FINDINGS: The right kidney measures 9.7 x 4.5 x 5.1 cm. The left kidney is absent. Renal cortical thickness and echogenicity are normal. No hydronephrosis or suspicious renal mass. The small 15 millimeter cyst present in the upper pole right kidney with no suspicious characteristics. No bladder wall thickening or mass. No intraluminal stone or mass. IMPRESSION: No hydronephrosis or suspicious renal mass. No bladder abnormality identified. COMMENTS: NORMAL LEFT VENTRICULAR EJECTION FRACTION 55-60% WITH NORMAL WALL MOTION. MODERATE DIASTOLIC DYSFUNCTION. MILD MITRAL REGURGITATION. MILD AORTIC INSUFFIENCY. Conclusions/Impression: Stage III JAZZY likely due to hypovolemia and may be complicated by ATN CKD IV with proteinuria Left nephrectomy 1994 -No NSAIDs -CVC HD placed today and HD initiated Hypovolemic Hyponatremia -Encourage nutrition -HD as ordered HTN with CKD/ CHF complicated hypotension -Hold Nifedipine at this time Diastolic CHF, chronic -Daily weight DM II with polyneuropathy and CKD Exacerbated by IV steroids -RISS Anemia in chronic illness Iron Deficiency -Monitor H&H -Consider IV iron CKD MBD -Continue Ergo qwk BPH with LUTS -Continue Flomax qhs Slow transit constipation -Continue Colace BID BL PNA COPD with exacerbation -Continue Abx -Continue steroids -Neb prn Case reviewed with Dr. Albert
[2022-07-19 04:05] LABS: Absolute Lymphocytes (CBC) 0.5 K/uL (0.7-4.9); Hematocrit 30.8 % (39.6-49.0); Lymphocytes % 4.5 % (15.3-44.8); MCV 90.6 fL (80-100); MPV 7.4 fL (7.6-11.3); RBC Red Blood Cell Count 3.39 M/uL (4.33-5.43)
[2022-07-19 04:25] LABS: Potassium 4.9 mmol/L (3.5-5.1)
[2022-07-19] MEDS: DOCUSATE NA 100 MG CAP PO SCH ×2 (08:38→21:00)
[2022-07-19] MEDS: METHYLPREDNISOLONE 40 MG INJ IV SCH ×2 (08:38→21:35)
[2022-07-19] MEDS: INSULIN -REGULAR HUMAN 50 UNIT/0.5 ML ML SQ SCH ×4 (08:39→21:00)
[2022-07-19] MEDS: AMINO ACIDS/PROTEIN HYDROLYS 30 ML LIQUID.PKT PO SCH ×2 (08:40→21:00)
--- NOTE | 2022-07-19 11:20 | P.PN ---
Nephrology note (S) Pt reports tolerating HD, reports shortness of breath stable, still with urinary frequency Vitals, medications, blood work and imaging reviewed in the chart. 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 Marked azotemia on admission with likely some early uremic symptoms. Even though some worsening of kidney function may be related to hemodynamic factors, infections and azotemia worsened on steroids, his baseline GFR state appears to have been low and it was reasonable to consider proceed with HD initiation. TDC placed, s/p initial HD, to be repeated toady, primarily for metab clearance. Non oliguric currently. PNA, b/l -Sputum culture results noted, Cont Abx, supportive care UTI site unspecified, POA -MRSA on UCx, pt on Vanc, monitor levels closely, cont maintenance dosing with HD Diastolic CHF, chronic. MR, non rheumatic -Cont to monitor closely Anemia in chronic illness, CKD -Trend H/H closely [place] MD, BRISSA
[2022-07-19] MEDS ORDERED: VANCOMYCIN 1 GM in NA CHLORIDE 0.9% 250 ML IVPB SCH ×2 (13:00→14:00)
--- NOTE | 2022-07-19 15:59 | P.DS ---
Admission Date: 07/14/22 Discharge Date: 07/19/22 Primary Care Provider: SHEA [facility] Discharge Condition: GOOD Reason for Admission: Pneumonia, COPD, JAZZY Consultations: 1. Nephrology 2. General Surgery 3. Infectious Diseases Procedures: - 07/18/2022 - Placement of a Tunneled Dialysis Catheter Hospital Course: DIAGNOSES: # Severe Sepsis likely secondary to Methicillin-Resistant Staphylococcus Aureus Urinary Tract Infection and ESBL Escherichia Coli Bilateral Community-Acquired Pneumonia # KDIGO Stage III Acute Kidney Injury on Chronic Kidney Disease Stage IV # Acute Chronic Obstructive Pulmonary Disease Exacerbation # Paroxysmal Atrial Fibrillation with Rapid Ventricular Response # Monoclonal Gammopathy # S/P Left Nephrectomy (1994) # Microscopic Hematuria # History of Bladder Cancer # Coronary Artery Disease s/p PCI # Peripheral Artery Disease # Chronic Compensated Diastolic Congestive Heart Failure # Hypertension # Dyslipidemia # Steroid-Induced Hyperglycemia in Type II Diabetes Mellitus # Benign Prostatic Hyperplasia s/p LUTS # Tobacco Use Disorder HOSPITAL COURSE: Mr. Frank López is a pleasant 77-year-old male with a past medical history significant for chronic kidney disease stage IV, chronic obstructive pulmonary disease, paroxysmal atrial fibrillation, coronary artery disease s/p PCI, chronic diastolic congestive heart failure, peripheral artery disease, monoclonal gammopathy, hypertension, dyslipidemia, type 2 diabetes mellitus, benign prostatic hyperplasia, and tobacco use disorder who was admitted to the [facility] on 07/14/2022 for shortness of breath and coug h. He was admitted to the Medicine service. Upon further evaluation, he was found to have severe sepsis secondary to a urinary tract infection as well as bilateral community-acquired pneumonia. His urine cultures would return positive for methicillin-resistant Staphylococcus Aureus and his sputum cultures returned positive for ESBL Escherichia Coli. Infectious Diseases was consulted and he was evaluated by Dr. Ibarra. Dr. Ibarra recommended that he be started on vancomycin and meropenem for treatment of his infections. Additionally, his hospital course has been complicated by an acute kidney injury. Despite fluid resuscitation, his creatinine continued to worsen. Nephrology was consulted and he was evaluated by Dr. Carrillo. It was decided to proceed with a tunneled dialysis catheter placement and initiation of hemodialysis. General Surgery was consulted and a tunneled dialysis catheter was placed on 07/18/2022. He tolerated the procedure well and underwent dialysis without any issues. Given his comorbidities and need for IV therapy, it was decided that he would best be suited in a long-term acute facility. With the assistance of case management, he has been accepted to [facility] in [place]. On 07/19/2022, he was seen on morning rounds and deemed medically stable for discharge. He was given the opportunity to ask questions and reported no further questions. Furthermore, all questions were answered to the best of my ability. A copy of this discharge summary will be sent to the above providers to facilitate continuity of care. Today, I personally spent 40 minutes on his case, of which greater than 50% of the time was spent in patient education, counseling, and coordination of care as described above. - Physical Exam General: Alert, In no apparent distress, Oriented x3 HEENT: Atraumatic, PERRLA, Mucous membr. moist/pink, EOMI, Sclerae nonicteric Neck: JVD not distended Respiratory: Clear to auscultation bilaterally, Normal air movement Cardiovascular: No edema, Regular rate/rhythm, Normal S1 S2, No gallops, No rubs, No murmurs Gastrointestinal: Normal bowel sounds, Soft and benign, Non-distended, No tenderness, No rebound, No guarding Musculoskeletal: No clubbing Integumentary: No rashes Neurological: Normal speech, Cranial nerves 3-12 intact, Normal affect Vital Signs/Physical Exam: Temp Pulse Resp BP Pulse Ox 97.2 F 101 H 18 168/98 H 96 07/19/22 08:00 07/19/22 08:00 07/19/22 08:00 07/19/22 08:00 07/19/22 08:00 Laboratory Data at Discharge: WBC 11.10 K/uL (4.3-10.9) H 07/19/22 03:41 Hgb 9.9 g/dL (13.6-17.9) L 07/19/22 03:41 Hct 30.8 % (39.6-49.0) L 07/19/22 03:41 Plt Count 282 K/uL (152-406) 07/19/22 03:41 PT 20.8 SECONDS (9.5-12.5) H 07/14/22 17:06 INR 1.89 07/14/22 17:06 APTT 35.4 SECONDS (24.3-36.9) 07/14/22 17:06 Sodium 140 mmol/L (136-145) 07/19/22 03:41 Potassium 4.9 mmol/L (3.5-5.1) 07/19/22 03:41 BUN 79 mg/dL (7-18) H 07/19/22 03:41 Creatinine 3.26 mg/dL (0.70-1.30) H 07/19/22 03:41 Glucose 209 mg/dL (74-106) H 07/19/22 03:41 Uric Acid 8.6 mg/dL (3.5-7.2) H 07/15/22 18:48 Phosphorus 3.6 mg/dL (2.5-4.9) 07/18/22 03:28 Magnesium 2.4 mg/dL (1.8-2.4) 07/15/22 03:45 Total Bilirubin 0.8 mg/dL (0.2-1.0) 07/14/22 17:06 AST 30 U/L (15-37) 07/14/22 17:06 ALT 36 U/L (12-78) 07/14/22 17:06 Alkaline Phosphatase 154 U/L (45-117) H 07/14/22 17:06 Triglycerides 55 mg/dL (<150) 07/15/22 03:45 Cholesterol 59 mg/dL (<200) 07/15/22 03:45 HDL Cholesterol 27 mg/dL (40-60) L 07/15/22 03:45 Cholesterol/HDL Ratio 2.19 07/15/22 03:45 Home Medications: Atorvastatin Calcium 40 mg PO BEDTIME 08/02/18 Finasteride [Proscar*] 5 mg PO DAILY 08/02/18 Gabapentin 300 mg PO BEDTIME 08/02/18 Paroxetine HCl [Paxil] 20 mg PO DAILY 08/02/18 allopurinoL [Zyloprim*] 100 mg PO DAILY 08/03/18 Budesonide/Formoterol Fumarate [Symbicort 160-4.5 Mcg Inhaler] 2 puff IH BID #60 hfa.aer.ad 08/06/18 Cholecalciferol (Vitamin D3) [Vitamin D3] 25 mcg PO DAILY 08/08/21 Cyanocobalamin [Vitamin B-12*] 2,000 mcg PO DAILY 08/08/21 Ipratropium/Albuterol Sulfate [Combivent Respimat 20-100 Mcg] 1 puff IH Q6H PRN 08/08/21 Nifedipine [Procardia Xl] 60 mg PO DAILY 08/08/21 Apixaban [Eliquis *] 2.5 mg PO BID #60 tablet 08/11/21 Furosemide [Lasix] 40 mg PO DAILY #30 tablet 08/11/21 Levalbuterol HCl [Xopenex] 1.25 mg NEB Q6H PRN #60 ml 08/11/21 Metoprolol Tartrate [Lopressor*] 50 mg PO BID 6AM 6PM #60 tab 08/11/21 Na Bicarb Tab [Sodium Bicarb 325 MG Tab*] 325 mg PO BID #60 tab 08/11/21 Tamsulosin [Flomax*] 0.4 mg PO BID #60 cap 08/11/21 predniSONE [Prednisone*] 20 mg PO BID #20 tab 08/11/21 Physician Discharge Instructions: - Once discharged from [facility], please make sure to follow-up the blood in your urine with your Urologist. This is a concerning finding, particularly due to your history of bladder cancer Please call [phone] if you have any questions regarding your hospital stay Diet: Renal Activity: Ad aydin Followup: Mario Alberto Carrillo DO [ACTIVE - CAN ADMIT] - Tung Ibarra MD [ACTIVE - CAN ADMIT] - Leander Salinas [ACTIVE - CAN ADMIT] - Time spent managing pt's care (in minutes): 40
[2022-07-19] MEDS ORDERED: Meropenem 500 MG in NA CHLORIDE 0.9% 100 ML IV SCH (17:00)
[2022-07-19 21:05] VITALS: BP 171/89; TEMP 97.5
[2022-07-19] MEDS: ENOXAPARIN 80 MG/0.8 ML SQ SCH (21:34)
[2022-07-19] MEDS: MELATONIN 5 MG TABLET PO SCH (21:34)
[2022-07-19] MEDS: TAMSULOSIN 0.4 MG SR CAP PO SCH (21:34)
[2022-07-19 22:02] VITALS: O2SAT 98
[2022-07-21 12:19] LABS: HBsAG Nonreactive (Nonreactive)
--- NOTE | 2022-07-22 14:25 | PN ---
Subjective: Patient lying in bed. No new acute events. Denies any chest pain, abdominal pain, cons tipation, or diarrhea. Objective: Vital Signs: Temperature 98, pulse 78, respirations 16, blood pressure 168/98. Lungs: Basal crackles. Heart: S1, S2. Regular. Abdomen: Soft, nontender. Bowel sounds present. Extremity: No edema. Laboratory Data: WBC 11.1, hemoglobin 9.9, platelets 282. Chemistry shows BUN of 79, creatinine 3.2 . Urine culture growing E coli ESBL. Urine cultures MRSA. Patient currently on Merrem and vancomyc in. Assessment And Plan: Pneumonitis secondary to Escherichia coli Extended spectrum beta-lactamase. Uri nary tract infection secondary to Methicillin-resistant Staphylococcus aureus. End-stage renal disea se, leukocytosis, anemia of chronic disease, moderate protein-calorie malnourishment. Continue suppo rtive care. Antibiotic. Agree with long-term acute care. We will follow the patient as needed. NF/MODL Voice ID: [id number] Report ID: [id number]
[2022-07-23 20:24] LABS: Beta Globulin 24 HR Urine 23 %; Gamma Globulin, 24hr Urine 19 %; Interpretation: REPORT; Protein/Crea Ratio in g 1489 mg/g creat (<100); Protein/Crea Ratio in mg 1.489 (<0.100); Urine Alpha-2-Globulins, 24 Hr 21 %; Urine PEP Abn Protein Band1 REPORT; Urine Total Volume 24 Hours 3400 mL
== END 2022-07-19 22:36 | DRG 871 ==
LOC: ER 16:34 → ERHOLD 19:19 → 2ND 20:38
PROVIDERS: ADMIT Hospitalist; ATTEND Internal Medicine
PROC: 02HV33Z Insertion of Infusion Device into Superior Vena Cava, Percutaneous Approach (ICD-10-PCS; 2022-07-18)
PROC: 5A1D70Z Performance of Urinary Filtration, Intermittent, Less than 6 Hours Per Day (ICD-10-PCS; 2022-07-18)
PROC: 0JH63XZ Insertion of Tunneled Vascular Access Device into Chest Subcutaneous Tissue and Fascia, Percutaneous Approach (ICD-10-PCS; principal; 2022-07-18 09:00)
DX: A41.02 Sepsis due to Methicillin resistant Staphylococcus aureus (principal); J18.9 Pneumonia, unspecified organism; J44.0 Chronic obstructive pulmonary disease with (acute) lower respiratory infection; N39.0 Urinary tract infection, site not specified; N18.4 Chronic kidney disease, stage 4 (severe); I50.32 Chronic diastolic (congestive) heart failure; I13.0 Hypertensive heart and chronic kidney disease with heart failure and stage 1 through stage 4 chronic kidney disease, or unspecified chronic kidney disease; N17.9 Acute kidney failure, unspecified; E87.1 Hypo-osmolality and hyponatremia; J44.1 Chronic obstructive pulmonary disease with (acute) exacerbation; E44.0 Moderate protein-calorie malnutrition; R65.20 Severe sepsis without septic shock; A41.51 Sepsis due to Escherichia coli [E. coli]; E11.22 Type 2 diabetes mellitus with diabetic chronic kidney disease; E11.42 Type 2 diabetes mellitus with diabetic polyneuropathy; E11.51 Type 2 diabetes mellitus with diabetic peripheral angiopathy without gangrene; D63.1 Anemia in chronic kidney disease; N40.1 Benign prostatic hyperplasia with lower urinary tract symptoms; E78.5 Hyperlipidemia, unspecified; D50.9 Iron deficiency anemia, unspecified; K59.01 Slow transit constipation; E86.1 Hypovolemia; I48.0 Paroxysmal atrial fibrillation; D47.2 Monoclonal gammopathy; L89.152 Pressure ulcer of sacral region, stage 2; I25.10 Atherosclerotic heart disease of native coronary artery without angina pectoris; T38.0X5A Adverse effect of glucocorticoids and synthetic analogues, initial encounter; F17.200 Nicotine dependence, unspecified, uncomplicated; R31.29 Other microscopic hematuria; Z88.5 Allergy status to narcotic agent; Z88.1 Allergy status to other antibiotic agents; Z99.81 Dependence on supplemental oxygen; Z68.26 Body mass index [BMI] 26.0-26.9, adult; Z85.51 Personal history of malignant neoplasm of bladder; Z90.49 Acquired absence of other specified parts of digestive tract; Z79.01 Long term (current) use of anticoagulants; Z79.52 Long term (current) use of systemic steroids; Z79.899 Other long term (current) drug therapy; Z20.822 Contact with and (suspected) exposure to COVID-19
CPT/HCPCS: 0240U; 36415; 71045; 71250; 76000; 76770; 80048; 80053; 80061; 80069; 80202; 81001; 81003; 81015; 82435; 82570; 82947; 83605; 83735; 84100; 84132; 84145; 84156; 84166; 84300; 84443; 84550; 85025; 85610; 85730; 86334; 86704; 86706; 87040; 87070; 87077; 87086; 87088; 87186; 87205; 87340; 90935; 93005; 94010; 94760; 96374; 96375; 97161; 97530; 99285; A4216; C1752; C1769; J0456; J0690; J0692; J1160; J1644; J1650; J1815; J2001; J2150; J2250; J2370; J2704; J2920; J2930; J3010; J3370; J3475; J7040; J7050; J7120; J7613; J7614; J7644; Q0144; Q5106

== ENCOUNTER 2022-09-03 23:39 | Inpatient (IN) | payer OTHER ==
--- OUTSIDE RECORDS SUMMARY | 2022-09-03 23:46 | XMS REPORT | Continuity of Care Document ---
:1945 Author Organization [facility] t Address [address] [place] [address] Care Team Providers Name Role Phone [facility], [facility] Primary Care Physician [phone] ANGIE MARTINEZ Attending Clinician Unavailable Doctor Unassigned, [place] Attending Clinician Unavailable Nyla GUERRERO, Hemanth Llamas Attending Clinician Unavailable JERE WOODWARD Attending Clinician Unavailable Quinn Ibarra MD Attending Clinician Jere Woodward MD Attending Clinician ANGIE MARTINEZ Admitting Clinician Unavailable JERE WOODWARD Admitting Clinician Unavailable Jere Woodward MD Admitting Clinician Payers Payer Name Policy Type Policy Number Effective Date Expiration Date S lj [id number] 1960 00:00:00 WPS-VACAA C1 [id number] [facility] WPS-VACAA C1 [id number] [facility] Problems Condition Condition Condition Status Onset [...] 1-25 it y of on on 00:00: [place] [facility] Obesity Obesity Disease Active Univers (BMI (BMI 1-24 ity of 30-39.9) 30-39.9) 00:00: [place] [facility] Coronary Coronary Disease Active Unive rs artery artery 1-24 ity of disease disease 00:00: [place] involving involving 00 Medi unruly [place] Branch coronary coronary artery of artery of pra[place] heart heart without without angina angina pectoris pectoris Atrial Atrial Disease Active Univers flutter flutter 1-24 ity of 00:00: [place] [facility] PAD PAD Disease Active Univers (periphera (periphera 1-24 it y of l artery l artery 00:00: [place] disease) disease) 00 Medica l Branch Chronic Chronic Disease Active Univers diastolic diastolic 1-24 ity of congestive congestive 00:00[place] heart heart 00 Medical failure failure Branch Primary Primary Disease Active Univers hypertensi hypertensi 1-24 it y of on on 00:: [place] [facility] Other Other Disease Active Univers hyperlipid hyperlipid 1-24 it y of emia emia 00:00: [place] 00 Medical Branch JAZZY (acute JAZZY (acute Disease Active U nivers kidney kidney 1-24 ity of injury) injury) 00:00: [place] [facility] Toe ulcer, Toe ulcer, Disease Active U nivers right, right, 2-20 ity of limited to limited to [place] breakdown breakdown 00 Medi unruly of skin of skin Branch COPD COPD Disease Active Univers exacerbati exacerbati 2-16 it y of on on 00:00: [place] [facility] COPD COPD Disease Active 2018-0 Univers (chronic (chronic 2-15 ity of obstructiv obstructiv 00:00: [place] e e 00 Medical pulmonary pulmonary Bran ch disease) disease) HCAP HCAP Disease Active Univers (healthcar (healthcar 1-20 it y of e-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 e-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 00:00: [place] ed ed 00 Medical pneumonia) pneumonia) Br anch Eschar of Eschar of Disease Active 2016-08 Uni vers foot foot -28 ity of 00:00: Medical Branch Respirator Respirator Disease Active 2016-08 U nivers y failure, y failure, - it y of acute acute 00:00: [facility] [id number] MRSA Problem Active Common (methicill Spirit in - [facility] resistant staph [facility] aureus) Medical culture Center positive [id number] OAB Problem Active Common (overactiv Spirit e bladder) - [facility] [id number] Urge Problem Active Common incontinen Spirit ce - [facility] [id number] 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 [facility] [id number] Lower Problem Active Common urinary Spirit tract - [facility] symptoms St (LUTS) [facility] [id number] 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 - [facility] bladder, [facility]spec[facility] Allergies, Adverse Reactions, Alerts Allergy Allergy Status Severity Reaction(s) Onset Inactive Treating Comm ents Source Name Type Date Date Clinician Ariana Braunensi Active Rash LEUKOCYTO Uni vers llin-David ty to 2-27 CLASTIC ity of obactam adverse 00:00: VASCULITI [place] reaction 00 S Medical s Branch PIPERACI DRUG Active Rash Univers LLIN-DAVID 2-27 ity of OBACTAM 00:00: Medical Branch Amiodaro Drug Active Rash Prior to Univer s ne Allergy 2-24 rash ity of 00:00: onset pt 00 given Medical amiodaron Branch e, generaliz ed purpuric rash noted; however was started on zosyn around the same time. So may have been from that AMIODARO DRUG Active High Rash Univers NE INGREDI 2-24 ity of 00:00: Medical Branch Codeine Propensi Active Rash Univers ty to 4-03 ity of adverse 00:00: [place] reaction 00 Medical s Branch Sulfa Propensi Active Swelling Univer s (Sulfona ty to 403 ity of mide adverse 00:00: [place] Antibiot reaction 00 Medica l ics) s Branch CODEINE DRUG Active Rash Univers INGREDI 4-03 ity of 00:00: [place] 00 Medical Branch SULFA Drug Active Swelling Univers (SULFONA Class 4- ity of MIDE 00:00: [place] ANTIBIOT 00 Medical ICS) Branch Social History Social Habit Start Date Stop Date Quantity Comments Source Exposure to Not sure [facility] SARS-CoV-2 [place] Medical (event) Branch Sex Assigned At Common Sp marcio - [facility] History of Common Spirit - Tobacco Use [facility] Alcohol intake 2021-09-07 2021-09-07 Current University of 00:00:00 00:00:00 non-drinker of [facility] alcohol [place] (finding) Tobacco use and 2017-09-25 2017-09-25 Never used Universit y of exposure 00:00:00 00:00:00 [facility] Tobacco Comment 2017-09-25 2017-09-25 Quit 1 month ago Uni versity of 00:00:00 00:00:00 [facility] Smoking Status Start Date Stop Date Source Former smoker 2017-09-25 00:00:00 2017-09-25 00:00:00 Universi ty of [facility] Medications Ordered Filled Start Stop Current Ordering Indication Dosage Frequency Signature Comments Components Source Medication Medication Date Date Medication? Clinician (SIG) Name Name linezolid 2021- No 600mg 600 mg, Uni vers (ZYVOX) 09-12 0204 Oral, ity of tablet 600 02:00: 01:59 Q12H, 4 [place] as mg 00 :00 doses, Medical First dose Branch (after last modificati on) on Fri09/11/21 at 2000, Last dose on Fri09/13/21 at 0800, ALIYN
Re ason for Anti-Infec tive: Documented Infection< br>Documen jose Infection Site: Urine
D uration of Therapy: 7 days
Re stricted use approved by: ADC PROVIDER aspirin 81 2021- No [id number] 81mg Take 1 Univers mg EC 09-12 tablet by ity of tablet 00:00: 05:59 mouth [place] 00 :00 daily for Medical 30 days. Branch aspirin 81 2021-0 2021- No [id number] 81mg Take 1 Univers mg EC 09-1205 tablet by ity of tablet 00:00: 05:59 mouth [place] 00 :00 daily for Medical 30 days. Branch atorvastati 0 Yes 40mg Take 40 mg Univers n 40 mg 2-01 by mouth ity of tablet 18:18: at [place] 48 bedtime. Medical Branch gabapentin 0 Yes 300mg Take 300 Un cameron 300 mg 2-01 mg by ity of tablet 18:18: mouth [place] 48 daily. Medical Branch FINASTERIDE 0 Yes 5mg 5 mg. Unive rs , BULK, 2- ity of MISC 18:18: [place] 48 Medical Branch PAROXETINE 0 Yes 20mg Take 20 mg U nivers HCL (PAXIL 2-01 by mouth. ity of ORAL) 18:18: [place] 48 Medical Branch allopurinol 2021-0 Yes 100mg Take 100 U nivers 100 mg 2-01 mg by ity of tablet 18:18: mouth [place] 48 daily. Medical Branch Mometasone 0 Yes Inhale. Univ ers (ASMANEX 2-01 ity of TWISTHALER) 18:18: [place] 110 mcg (30 48 Medical doses) Branch aerosol powder tamsulosin 0 Yes .4mg Take 0.4 Uni vers (FLOMAX) 2-01 mg by ity of 0.4 mg 24 18:18: mouth [place] hr capsule 48 daily. Medical Branch atorvastati 0 Yes 40mg Take 40 mg Univers n 40 mg 2-01 by mouth ity of tablet 18:18: at [place] 48 bedtime. Medical Branch gabapentin 2021-0 Yes 300mg Take 300 Un cameron 300 mg 2-01 mg by ity of tablet 18:18: mouth [place] 48 daily. Medical Branch FINASTERIDE 0 Yes 5mg 5 mg. Unive rs , BULK, 2- ity of MISC 18:18: [place] 48 Medical Branch PAROXETINE 2021-0 Yes 20mg Take 20 mg U nivers HCL (PAXIL 2-01 by mouth. ity of ORAL) 18:18: [place] 48 Medical Branch allopurinol 0 Yes 100mg Take 100 U nivers 100 mg 2-01 mg by ity of tablet 18:18: mouth [place] 48 daily. Medical Branch Mometasone 0 Yes Inhale. [facility] ers (ASMANEX 2 ity of TWISTHALER) 18:18: [place] 110 mcg (30 48 Medical doses) Branch aerosol powder tamsulosin 0 Yes .4mg Take 0.4 Uni vers (FLOMAX) 2-01 mg by ity of 0.4 mg 24 18:18: mouth [place] hr capsule 48 daily. Medical Branch atorvastati 0 Yes 40mg Take 40 mg Univers n 40 mg - by mouth ity of tablet 18:18: at [place] 48 bedtime. Medical Branch gabapentin 0 Yes 300mg Take 300 Un cameron 300 mg 2-01 mg by ity of tablet 18:18: mouth [place] 48 daily. Medical Branch FINASTERIDE Yes 5mg 5 mg. Unive rs , BULK, 09-11 ity of MISC 18:18: [place] 48 Medical Branch PAROXETINE 0 Yes 20mg Take 20 mg U nivers HCL (PAXIL 09-11 by mouth. ity of ORAL) 18:18: [place] 48 Medical Branch allopurinol 0 Yes 100mg Take 100 U nivers 100 mg 2-01 mg by ity of tablet 18:18: mouth [place] 48 daily. Medical Branch Mometasone 0 Yes Inhale. [facility] ers (ASMANEX 2 ity of TWISTHALER) 18:18: [place] 110 mcg (30 48 Medical doses) Branch aerosol powder tamsulosin 0 Yes .4mg Take 0.4 Uni vers (FLOMAX) 2-01 mg by ity of 0.4 mg 24 18:18: mouth [place] hr capsule 48 daily. Medical Branch NIFEdipine 2021-0 2021- No 60mg Take 60 mg Univers XL 60 mg 24 09-11 by mouth ity of hr tablet 17:09: 00:00 daily. [place] 04 :00 Medical Branch apixaban 5 2021-0 2021- No [id number] 5mg Take 1 Univ ers mg tablet 09-11 tablet by ity of 00:00: 05:59 mouth 2 [place] 00 :00 (two) Medical times Branch daily for 30 days. Indication s: prevention of thromboemb olism in paroxysmal atrial fibrillati on ferrous No [id number] 325mg Take 1 U nivers sulfate 325 09-11 tablet by it y of mg (65 mg 00:00: 05:59 [place] 2 [place] iron) 00 :00 (two) Medical tablet times Branch daily for 30 days. diltiazem No [id number] 120mg Take 1 Univers 120 mg 24 09-11 capsule by ity of hr capsule 00:00: 05:59 mouth [place] 00 :00 daily for Medical 30 days. Branch apixaban 5 No [id number] 5mg Take 1 Univ ers mg tablet 09-11 tablet by ity of 00:00: 05:59 mouth 2 [place] 00 :00 (two) Medical times Branch daily for 30 days. Indication s: prevention of thromboemb olism in paroxysmal atrial fibrillati on ferrous [id number] 325mg Take 1 U nivers sulfate 325 09-11 tablet by it y of mg (65 mg 00:00: 05:59 mouth 2 [place] iron) 00 :00 (two) Medical tablet times Branch daily for 30 days. diltiazem [id number] 120mg Take 1 Univers 120 mg 24 09-11 capsule by ity of hr capsule 00:00: 05:59 mouth [place] 00 :00 daily for Medical 30 days. Branch linezolid No [id number] 600mg Take 1 Univers 600 mg 09-11 tablet by ity of tablet 00:00: 05:59 mouth [place] 00 :00 every 12 Medical (twelve) Branch hours for 7 days. linezolid No [id number] 600mg Take 1 Univers 600 mg 09-11 tablet by ity of tablet 00:00: 05:59 mouth [place] 00 :00 every 12 Medical (twelve) Branch hours for 7 days. diltiazem No [id number] 30mg Take 1 Univers 30 mg 09-11 tablet by ity of tablet 00:00: 00:00 mouth [place] 00 :00 every 6 Medical (six) Branch hours for 30 days. HYDROcodone Yes 1{tbl} 1 tablet, Univers -acetaminop 09-10 Oral, ity of hen (NORCO 21:51: Q6HPRN, [place] 5) 5-325 mg 07 Starting Medi unruly tablet 1 on Mon Branch tablet 09/10/21 at 1551, Until Discontinu ed, Routine, Pain (scale 7-10) traMADoL 2021- No 50mg 50 mg, Univer s (ULTRAM) 09-10 Oral, ity of tablet 50 19:30: 19:08 ONCE, 1 [place] mg 00 :00 dose, On Medical Mon Branch 09/10/21 at 1330, Routine apixaban Yes 5mg 5 mg, Univers (ELIQUIS) 09-10 Oral, BID, ity of tablet 5 mg 02:00: First dose [place] 00 on [place] [facility] 09/09/21 at Branch 1999, Until Discontinu [...] use approved by: ADC PROVIDER NaCl 0.9% 2021- No IV Univers (NS) 09-06 Infusion, ity of PEDIATRIC 05:15: 15:14 at 75 [place] IV infusion 00 :00 mL/hr, Medica l CONTINUOUS Branch , Starting on Fri09/05/21 at 2315, Until Dee 09/06/21 at 0914, Routine benzonatate Yes 100mg 100 mg, Un cameron (TESSALON 09-06 Oral, ity of PERLES) 00:54: Q8HPRN, [place] capsule 100 06 Starting Medi unruly mg on Wed Branch 09/05/21 at 1854, Until Discontinu ed, Routine, Cough diltiazem Yes 30mg 30 mg, Univer s (CARDIZEM) 09-05 Oral, Q6H, ity of tablet 30 18:00: First dose [place] mg 00 on Fri Medical 09/05/21 at Branch 1200, Until Discontinu ed, Routine azithromyci 2021- No [...] Branch (NS) 100 mL Hours, On infusion e 09/04/21 at 0930, For 1 dose methylPREDN No 40mg 40 mg, Uni vers ISolone sod 09-04 Intravenou i ty of succ 15:00: 14:49 s, DAILY, [place] (SOLU-MEDRO 00 :00 4 doses, Medi unruly L (PF)) First dose Branch injection (after 40 mg last modificati on) on Fri09/04/21 at 0900, Last dose on Fri09/07/21 at 0900, STAT cefTRIAXone 2021-0 2021- No 1000mg 1,000 mg, Univers (ROCEPHIN) 09-04 02-01 IV ity of 1,000 mg in 05:45: 16:07 Piggyback, [place] NaCl 0.9% 00 :48 Q24H ABX, Medic al (NS) 50 mL First dose [facility] MINI-BAG on Fri09/03/21 at 2345, Until Discontinu ed, Administer over 30 Minutes, 50 mL
Reas on for Anti-Infec tive: Empiric Therapy for Suspected Infection< br>Empiric Therapy Site: Urine
D uration of therapy: 7 days tamsulosin 2021-0 Yes .4mg 0.4 mg, Univ ers (FLOMAX) 25 Oral, BID, ity o f capsule 0.4 03:15: First dose [place] mg 00 (after Medical last Branch modificati on) on Fri09/03/21 at 2115, Until Discontinu ed, Routine ferrous 2021-0 Yes 325mg 325 mg, Univer s sulfate 24 Oral, BID, ity of tablet 325 16:30: First dose [place] mg 00 on [facility] 09/03/21 at Branch 1030, Until Discontinu ed, Routine aspirin EC 2021-0 Yes 81mg 81 mg, Unive rs tablet 81 24 Oral, ity of mg 15:00: DAILY, [place] 00 First dose Medical on [facility] 09/03/21 at 0900, Until Discontinu ed, Routine PARoxetine 0 Yes 20mg 20 mg, Unive rs (PAXIL) -24 Oral, ity of tablet 20 15:00: DAILY, [place] mg 00 First dose Medical on [facility] 09/03/21 at 0900, Until Discontinu ed finasteride 2021-0 Yes 5mg 5 mg, Unive rs (PROSCAR) -24 Oral, ity of tablet 5 mg 15:00: DAILY, [place] 00 First dose Medical on [facility] 09/03/21 at 0900, Until Discontinu ed NIFEdipine 2021- No 60mg 60 mg, Univ ers ER tablet 09-03 Oral, ity of 60 mg 15:00: 14:27 DAILY, [place] 00 :50 First dose Medical on [facility] 09/03/21 at 0900, Until Discontinu ed tamsulosin 2021- No .4mg 0.4 mg, Uni vers (FLOMAX) 09-03 Oral, ity of capsule 0.4 15:00: 03:06 DAILY, Na[place] as mg 00 :19 First dose Medical on [facility] 09/03/21 at 0900, Until Discontinu ed, Routine azithromyci 2021- No 500mg 500 mg, IV Univers n 09-03 Piggyback, ity of (ZITHROMAX) 07:30: 00:32 Q24H ABX, [place] 500 mg in 00 :51 First dose [facility] NaCl 0.9% on [facility] (NS) 250 mL 09/03/21 at VIAL-MATE [...] (0.083 15 Starting Medica l %) on [facility] nebulizer 09/03/21 at solution 0029, 2.5 mg Until Discontinu ed, Routine, Shortness of Breath, Wheezing, Bronchospa sm heparin 2021- No 5000U 5,000 Univers (porcine) 09-03 0130 Units, ity of injection 04:00: 17:52 Subcutaneo [place] 5,000 Units 00 :16 us, Q8H, Medi unruly First dose Branch on [place] 09/02/21 at 2200, Until Discontinu ed, Routine atorvastati Yes 40mg 40 mg, Univ ers n (LIPITOR) 09-03 Oral, QHS, it y of tablet 40 03:00: First dose [place] mg 00 on [facility] 09/02/21 at Branch 2100, Until Discontinu ed, Routine budesonide- 2021-0 Yes 2{puff} 2 Puff, [facility] formoteroL -24 Inhalation ity of (SYMBICORT) 02:00: , BID, [place] 160-4.5 00 First dose Medica l mcg/actuati on [facility] on inhaler 09/02/21 at 2 Puff 2000, Until Discontinu ed, Routine ipratropium 2021-0 Yes 3mL 3 mL, [facility] -al[facility] -24 Inhalation ity of (DUONEB) 02:00: , Q4H, [place] 0.5 mg-3 00 First dose Medic al mg(2.5 mg (after Branch base)/3 mL last nebulizer modificati solution 3 on) on [facility] 09/02/21 at 2000, Until Discontinu ed, AILYN furosemide 2021-0 2021- No 20mg 20 mg, [facility] ers (LASIX) 09-03 Slow IV ity of injection 01:15: 02:16 Push, [place] 20 mg 00 :00 ONCE, 1 Medical dose, On [facility] 09/02/21 at 1915, Routine methylPREDN 2021- No 40mg 40 mg, Uni vers ISolone sod 09-03 Intravenou i ty of succ 00:00: 21:42 s, Q6H, [place] (SOLU-MEDRO 00 :53 First dose Me dical L (PF)) (after Branch injection last 40 mg reorder) on [place] 09/02/21 at 1800, Until Discontinu ed, STAT Sliding Yes Subcutaneo [facility] ers Scale 1-23 us, TID ity of Insulin - 23:00: MEALS+HS, [place] as Lispro 00 First dose Medical (HumaLOG) + on [facility] 09/02/21 at Testing 1700, Until Discontinu ed, Routine glucagon 2021-0 Yes 1mg 1 mg, Univers (GLUCAGEN 09-02 Intramuscu ity of DIAGNOSTIC 22:44: lar, PRN, [place] KIT) 34 Starting Medical injection 1 on [facility] mg 09/02/21 at 1644, Until Discontinu ed, AILYN, Blood Glucose < or = 70 mg/dL and patient is unable to swallow or has mental changes. dextrose 50 0 Yes 25mL 25 mL, Univ ers % in water 09-02 Slow IV ity of (D50W) 22:44: Push, PRN, [place] injection 34 Starting Medica l 25 mL on [facility] 09/02/21 at 1644, Until Discontinu ed, AILYN, Blood Glucose < or = 70 mg/dL and patient is unable to swallow or has mental status changes. acetaminoph Yes 650mg 650 mg, Un cameron en 09-02 Oral, ity of (TYLENOL) 21:38: Q6HPRN, [place] tablet 650 12 Starting Medic al mg on [facility] 09/02/21 at 1538, Until Discontinu ed, Routine, Pain (scale 1-3) ipratropium 2021- No 3mL 3 mL, Univ ers -albuteroL 09-02 Inhalation it y of (DUONEB) 19:15: 18:44 , ONCE, 1 [place] as 0.5 mg-3 00 :00 dose, On Medical mg(2.5 mg [facility] base)/3 mL 09/02/21 at nebulizer 1315, AILYN solution 3 mL Saxagliptin 2021- No 2.5mg Take 2.5 Univers 2.5 mg 09-02 mg by ity of tablet 18:17: 00:00 mouth [place] 03 :00 daily. Medical Branch furosemide 2021- No 20mg Take 20 mg Univers 20 mg 09-02 by mouth ity of tablet 18:17: 00:00 daily. [place] 03 :00 Medical Branch busPIRone 2021- No 10mg Take 10 mg U nivers 10 mg 09-02 by mouth ity of tablet 18:17: 00:00 daily. [place] 03 :00 Medical Branch GLIPIZIDE 2021- No 10mg Take 10 mg U nivers ORAL 09-02 by mouth. ity of 18:17: 00:00 [place] 03 :00 Medical Branch amLODIPine 2021- No 5mg Take 5 mg U nivers 5 mg tablet 09-02 by mouth ity of 18:17: 00:00 daily. [place] 03 :00 Medical Branch tiotropium 2021- No Inhale. Uni vers bromide 09-02 ity of (SPIRIVA 18:17: 00:00 [place] WITH 03 :00 Medical HANDIHALER Branch INHALE) [...] at 40 mg 1045, STAT benzonatate Yes [id number] 100mg Take 1 Univers 100 mg 1-23 capsule by ity of capsule 00:00: mouth 3 [place] 00 (three) Medical times Branch daily as needed for Cough. albuterol 0 Yes [id number] 2{puff} Inhale 2 Univers 90 1-23 Puffs ity of mcg/actuati 00:00: every 4 [place] as on inhaler 00 (four) Medical hours as Branch needed for Wheezing or Shortness of Breath. albuterol 0 Yes [id number] 2.5mg Inhale 3 Univers 2.5 mg /3 1-23 mL every 4 ity of mL (0.083 00:00: (four) [place] %) 00 hours. May Medical nebulizer also Branch solution nebulize one extra every 6 hours. furosemide Yes [id number] 20mg Take 1 U nivers 20 mg 1-23 tablet by ity of tablet 00:00: mouth [place] 00 every Medical morning. Branch benzonatate 2021-0 Yes [id number] 100mg Take 1 Univers 100 mg 1-23 capsule by ity of capsule 00:00: mouth 3 [place] 00 (three) Medical times Branch daily as needed for Cough. albuterol 0 Yes [id number] 2{puff} Inhale 2 Univers 90 1-23 Puffs ity of mcg/actuati 00:00: every 4 Na[place] as on inhaler 00 (four) Medical hours as Branch needed for Wheezing or Shortness of Breath. albuterol 0 Yes [id number] 2.5mg Inhale 3 Univers 2.5 mg /3 1-23 mL every 4 ity of mL (0.083 00:00: (four) [place] %) 00 hours. May Medical nebulizer also Branch solution nebulize one extra every 6 hours. furosemide 0 Yes [id number] 20mg Take 1 U nivers 20 mg 1-23 tablet by ity of tablet 00:00: mouth [place] 00 every Medical morning. Branch benzonatate 0 Yes [id number] 100mg Take 1 Univers 100 mg 1-23 capsule by ity of capsule 00:00: mouth 3 00 (three) Medical times Branch daily as needed for Cough. albuterol 0 Yes [id number] 2{puff} Inhale 2 Univers 90 1-23 Puffs ity of mcg/actuati 00:00: every 4 Na[place] as on inhaler 00 (four) Medical hours as Branch needed for Wheezing or Shortness of Breath. albuterol 0 Yes [id number] 2.5mg Inhale 3 Univers 2.5 mg /3 1-23 mL every 4 ity of mL (0.083 00:00: (four) [place] %) 00 hours. May Medical nebulizer also Branch solution nebulize one extra every 6 hours. furosemide 0 Yes [id number] 20mg Take 1 U nivers 20 mg 1-23 tablet by ity of tablet 00:00: mouth [place] 00 every Medical morning. Branch predniSONE 2021-2021- No [id number] 40mg Take 2 Univers 20 mg 1-23 -31 tablets by ity of tablet 00:00: 05:59 mouth [place] 00 :00 daily for Medical 7 days. Branch budesonide- Yes [id number] 2{puff} Inhale 2 Univers formoterol 3-29 Puffs 2 ity of (SYMBICORT) 00:00: (two) [place] 160-4.5 00 times Medical mcg/actuati daily. Branch on inhaler budesonide- Yes [id number] 2{puff} Inhale 2 Univers formoterol 3-29 Puffs 2 ity of (SYMBICORT) 00:00: (two) [place] 160-4.5 00 times Medical mcg/actuati daily. Branch on inhaler budesonide- Yes [id number] 2{puff} Inhale 2 Univers formoterol 3-29 Puffs [...] No 1{puff} Inhale 1 Univers pratropium 2-26 02- Puff every it y of 20-100 00:00: [...] Immunizations Ordered Filled Immunization Date Status Comments [facility] e Immunization Name Name Pneumococcal 13 2017-10-06 Completed Universit y of Conjugate, PCV13 00:00:00 [facility] dical (Prevnar 13) Branch Pneumococcal 13 2017-10-06 Completed Universit y of Conjugate, PCV13 00:00:00 [facility] dical (Prevnar 13) Branch Pneumococcal 13 2017-10-06 Completed Universit y of Conjugate, PCV13 00:00:00 [facility] dical (Prevnar 13) [place] Influenza Virus 2017-05-11 Completed Universit y of Vaccine 00:00:00 [facility] Influenza Virus 2017-05-11 Completed Universit y of Vaccine 00:00:00 [facility] Influenza Virus 2017-05-11 Completed Universit y of Vaccine 00:00:00 [facility] Vital Signs Vital Name Observation Time Observation Value Comments Source Systolic blood 2021-09-11 22:27:00 126 mm[Hg] Univer sity of pressure [facility] Diastolic blood 2021-09-11 22:27:00 66 mm[Hg] Unive rsity of pressure [facility] Heart rate 2021-09-11 22:27:00 77 /min [facility] Body temperature 2021-09-11 22:27:00 37 Jazmin [facility] rate 2021-09-11 22:27:00 18 /min [facility] Oxygen saturation in 2021-09-11 22:27:00 96 /min [facility] Arterial blood by [facility] Pulse oximetry Branch Body weight 2021-09-10 10:13:00 91.627 kg [facility] BMI 2021-09-10 10:13:00 29.83 kg/m2 [facility] Body height 2021-09-02 15:19:00 175.3 cm [facility] height 2020-07-31 11:30:00 69 [in_i] [facility] weight 2020-07-31 11:30:00 210.8 [lb_av] [facility] temperature 2020-07-31 11:30:00 98.3 [degF] [facility] bmi 2020-07-31 11:30:00 31.13 kg/m2 [facility] oximetry 2020-07-31 11:30:00 97 % [facility] blood pressure 2020-07-31 11:30:00 169 mm[Hg] [facility] - systolic [facility] blood pressure 2020-07-31 11:30:00 76 mm[Hg] [facility] - diastolic [facility] Procedures Procedure Date / Time Performing Clinician Source Performed AUTHORIZATION FOR RELEASE 2021-10-11 06:01:00 Doctor Unassigned, [facility] POCT GLUCOSE (AUTOMATED) 2021-09-11 17:51:00 Jere Woodward [facility] POCT GLUCOSE (AUTOMATED) 2021-09-11 14:11:00 Jere Woodward [facility] BASIC METABOLIC PANEL (NA, 2021-09-11 10:33:00 Lance Solis [facility] K, CL, CO2, GLUCOSE, BUN, Medica l Branch CREATININE, CA) CBC WITH DIFF 2021-09-11 10:33:00 Lance Solis [facility] POCT GLUCOSE (AUTOMATED) 2021-09-11 02:20:00 [facility] 2021-09-10 23:10:00 Jere Woodward [facility] POCT GLUCOSE (AUTOMATED) 2021-09-10 17:41:00 Jere Woodward [facility] POCT GLUCOSE (AUTOMATED) 2021-09-10 13:53:00 Jere Woodward versity of [facility] POCT GLUCOSE (AUTOMATED) 2021-09-10 03:13:00 Jere Woodward versity of [facility] POCT GLUCOSE (AUTOMATED) 2021-09-09 23:15:00 Jere Woodward versity of [facility] POCT GLUCOSE (AUTOMATED) 2021-09-09 17:16:00 Jere Woodward versity of [facility] POCT GLUCOSE (AUTOMATED) 2021-09-09 13:49:00 [facility]ABOLIC PANEL (NA, 2021-09-09 11:00:00 [facility], CO2, GLUCOSE, BUN, Medica l Branch CREATININE, CA) LIPID PANEL (97813)(TOTAL 2021-09-09 11:00:00 Katya Ayoub [facility] TRIGLYCERIDES, HDL) CBC WITH DIFF 2021-09-09 11:00:00 Lance Solis [facility] N-TERMINAL PRO-BNP 2021-09-09 11:00:00 Leslie Garcia [facility] POCT GLUCOSE (AUTOMATED) 2021-09-09 03:38:00 [facility] POCT GLUCOSE (AUTOMATED) 2021-09-08 23:10:00 Jere Woodward versity of [facility] POCT GLUCOSE (AUTOMATED) 2021-09-08 17:41:00 Jere Woodward versity of [facility] POCT GLUCOSE (AUTOMATED) 2021-09-08 13:46:00 Jere Woodward versity of [facility] POCT GLUCOSE (AUTOMATED) 2021-09-08 03:01:00 Jere Woodward versity of [facility] POCT GLUCOSE (AUTOMATED) 2021-09-07 22:41:00 Jere Woodward versity of [facility] POCT GLUCOSE (AUTOMATED) 2021-09-07 18:09:00 Abdullah, Jere [facility] POCT GLUCOSE (AUTOMATED) 2021-09-07 14:17:00 Jere Woodward [facility] BASIC METABOLIC PANEL (NA, 2021-09-07 11:30:00 Lance Solis [facility] K, CL, CO2, GLUCOSE, BUN, Medica l Branch CREATININE, CA) CBC WITH DIFF 2021-09-07 11:30:00 Lance Solis [facility] POCT GLUCOSE (AUTOMATED) 2021-09-07 03:00:00 Jere Woodward [facility] POCT GLUCOSE (AUTOMATED) 2021-09-07 01:32:00 Jere Woodward [facility] POCT GLUCOSE (AUTOMATED) 2021-09-06 22:54:00 Jere Woodward [facility] POCT GLUCOSE (AUTOMATED) 2021-09-06 17:37:00 Jere Woodward [facility] acute hospital EXTRA TUBE URINE CULTURE 2021-09-06 14:38:00 Larry Martinez [facility] acute hospital URINALYSIS MICROSCOPIC 2021-09-06 14:35:00 James Romeo [facility] hospital CREATININE, URINE RANDOM 2021-09-06 14:35:00 James Romeo [facility] hospital UREA NITROGEN, URINE 2021-09-06 14:35:00 James Romeo [facility] POCT GLUCOSE (AUTOMATED) 2021-09-06 13:47:00 Jere Woodward [facility] PHOSPHORUS 2021-09-06 08:42:00 Jere Woodward [facility] MAGNESIUM 2021-09-06 08:42:00 James Romeo [facility] TROPONIN I 2021-09-06 08:42:00 Jere [facility]ward [facility] BASIC METABOLIC PANEL (NA, 2021-09-06 08:42:00 James Romeo [facility] K, CL, CO2, GLUCOSE, BUN, Medica l Branch CREATININE, CA) CBC WITH DIFF 2021-09-06 08:42:00 Lance Solis [facility] US ABDOMINAL AORTA SCREEN 2021-09-06 02:52:00 Lance Solis [facility] AAA [facility] POCT GLUCOSE (AUTOMATED) 2021-09-06 02:49:00 Jere Woodward [place] [facility] POCT GLUCOSE (AUTOMATED) 2021-09-05 22:13:00 Jere Woodward [facility] VANCOMYCIN RANDOM LEVEL 2021-09-05 22:08:00 Mahogany Rodriguez [facility] POCT GLUCOSE (AUTOMATED) 2021-09-05 17:39:00 Jere Woodward [facility] BASIC METABOLIC PANEL (NA, 2021-09-05 16:12:00 Leslie Garcia [facility] K, CL, CO2, GLUCOSE, BUN, Medica l Branch CREATININE, CA) N-TERMINAL PRO-BNP 2021-09-05 16:12:00 Leslie Garcia [facility] POCT GLUCOSE (AUTOMATED) 2021-09-05 13:34:00 Jere Woodward [place] [facility] POCT GLUCOSE (AUTOMATED) 2021-09-05 02:03:00 Jere Woodward [facility] POCT GLUCOSE (AUTOMATED) 2021-09-04 23:20:00 Jere Woodward [facility] RESPIRATORY PANEL BY PCR 2021-09-04 20:58:00 Mahogany Rodriguez [facility] CT ABDOMEN PELVIS WO 2021-09-04 20:44:03 Mahogany Rodriguez [facility] CONTRAST [facility] POCT GLUCOSE (AUTOMATED) 2021-09-04 17:38:00 Jere Woodward [facility] MRSA / MSSA SCREEN BY PCR, 2021-09-04 16:15:00 Leanne Gannon [facility] POCT GLUCOSE (AUTOMATED) 2021-09-04 13:38:00 Jere Woodward [facility] TROPONIN I 2021-09-04 10:42:00 Deborah Bearden [place] [facility] [place] [facility] BASIC METABOLIC PANEL (NA, 2021-09-04 10:42:00 Jere Woodward [facility] K, CL, CO2, GLUCOSE, BUN, Medica l Branch CREATININE, CA) CBC WITH DIFF 2021-09-04 10:42:00 Jere Woodward [facility] N-TERMINAL PRO-BNP 2021-09-04 10:42:00 Deborah Bearden [facility] BLOOD CULTURE SCREEN 2021-09-04 05:37:[address] [facility] PROCALCITONIN 2021-09-04 05:37:00 [facility] POCT GLUCOSE (AUTOMATED) 2021-09-04 02:44:00 Jere Woodward [facility] POCT GLUCOSE (AUTOMATED) 2021-09-04 01:30:00 Jere Woodward [facility] URINALYSIS 2021-09-03 22:57:00 Mirella Burdick [facility] URINE CULTURE 2021-09-03 22:57:00 Mirella Burdick [facility] POCT GLUCOSE (AUTOMATED) 2021-09-03 22:52:00 Jere Woodward [facility] US RETROPERITONEAL 2021-09-03 17:48:51 [facility] 2021-09-03 17:27:00 Jere Woodward [facility] TRANSTHORACIC ECHO (TTE) 2021-09-03 15:58:00 Mirella Burdick [facility] POCT GLUCOSE (AUTOMATED) 2021-09-03 14:12:00 Jere Woodward [facility] ACUTE CARE VENOUS BLOOD 2021-09-03 10:38:00 Deborah Bearden [facility] VITAMIN B12, LEVEL 2021-09-03 09:39:00 Mirella Burdick [facility] acute hospital URIC ACID 2021-09-03 09:38:00 [facility] 2021-09-03 09:38:00 [facility] TROPONIN I 2021-09-03 09:38:00 Mirella Burdick [facility] BASIC METABOLIC PANEL (NA, 2021-09-03 09:38:00 Jere Woodward [facility] K, CL, CO2, GLUCOSE, BUN, Medica l Branch CREATININE, CA) CBC WITH DIFF 2021-09-03 09:38:00 Jere [facility]ward [facility] N-TERMINAL PRO-BNP 2021-09-03 09:38:[address] [facility] FREE T3 2021-09-03 09:38:00 Gennaro Mirella [facility] PHOSPHORUS 2021-09-03 02:38:00 [facility] URIC ACID 2021-09-03 02:38:00 [facility] TROPONIN I 2021-09-03 02:38:00 Mirella Burdick [facility] POCT GLUCOSE (AUTOMATED) 2021-09-02 22:48:00 Jere Woodward [facility] POCT GLUCOSE (AUTOMATED) 2021-09-02 21:32:00 Jere Woodward [facility] ACUTE CARE ARTERIAL BLOOD 2021-09-02 16:56:00 Quinn Ibarra [facility] GAS [facility] XR CHEST 1 VW 2021-09-02 16:29:28 Quinn Ibarra [facility] RAPID INFLUENZA A/B 2021-09-02 15:40:00 Quinn [facility]bar[facility] (ID NOW RAPID 2021-09-02 15:38:00 Quinn Ibarra [facility] TESTING) [facility] [place] [facility] ONLY COVID 2021-09-02 15:38:00 Quinn Ibarra [facility] INTERPRETATION [facility] BLOOD CULTURE SCREEN 2021-09-02 15:32:00 Quinn Ibarra [facility] acute hospital LIPASE 2021-09-02 15:32:00 Quinn Ibarra [facility] FERRITIN SERUM 2021-09-02 15:32:00 Gennaro [facility] TROPONIN I 2021-09-02 15:32:00 Quinn Ibarra [facility] FREE T4 2021-09-02 15:32:00 Gennaro [facility] THYROID STIMULATING 2021-09-02 15:32:00 Gennaro [facility] HORMONE [facility] COMP. METABOLIC PANEL 2021-09-02 15:32:00 Quinn Ibarra [facility] ([id number]) [facility] IRON PANEL 2021-09-02 15:32:00 Gennaro Mirella [facility] CBC WITH DIFF 2021-09-02 15:32:00 Quinn Ibarra [facility] GLYCOSYLATED HEMOGLOBIN 2021-09-02 15:32[facility]00 [facility] PROTHROMBIN TIME / INR 2021-09-02 15:32:00 Quinn Ibarra [facility] acute hospital ACTIVATED PARTIAL THRMPLAS 2021-09-02 15:32:00 Quinn Ibarra [facility] N-TERMINAL PRO-BNP 2021-09-02 15:32:[address] [facility] PROCALCITONIN 2021-09-02 15:32:00 Gennaro Mirella [facility] BLOOD CULTURE WORKUP 2021-09-02 15:32:00 Quinn Ibarra [facility] acute hospital HB ECG ROUTINE & RHYTHM 2021-09-02 15:16:43 Quinn Ibarra [facility] Encounters Start End Encounter Admission Attending Care Care Encounter Source Date/Time Date/Time Type Type Clinicians Facility Department ID 2021-09-05 [facility] [id number] Common 12:23:38 [id number] [facility] 2021-09-05 [facility] [id number] Common 12:15:10 [id number] [facility] 2022-07-22 2022-07-22 Outpatient Twin [facility]ART[facility] [id number] 13:59:00 23:59:00 [facility] 2021-10-11 2021-10-11 Orders Doctor HANNAH [id number] Univers 00:00:00 00:00:00 Only Unassigned, CLAIR [id number] ity of [place] [facility] 4.2.7.2.686 Naresh as [id number] [facility] 009 Branch 2021-09-12 2021-09-12 Transition A[facility] [place] [id number] Univers 00:00:00 00:00:00 of Care Hemanth AMAYA 350.1.13.10 [place] [id number] [facility] 403 Branch 2021-09-02 2021-09-11 Inpatient X [facility] [id number] Univers 09:15:00 18:12:00 JERE ity of [facility] 2021-09-02 2021-09-11 [facility] Stacey Stover [facility] 1.2.840 .[id number] Univers 09:15:00 18:12:00 Encounter Jere Woodward [place] [id number] [place] [id number] [facility] 081 Branch 2020-08-02 2020-08-02 (TEL) [facility] [id number] Co mmon 00:00:00 00:00:00 [facility] 2020-07-31 2020-07-31 OFFICE [facility] [id number] Co mmon 00:00:00 00:00:00 VISIT [facility] it PT LEVEL 4 - [facility] Results Test Description Test Time Test Comments Results Result [facility] e Comments NM LUNG (V/Q ) 2022-07-22 SCAN W ISOTOPE 15:46:51 [facility] : 1945 Sex: M Radio nuclide perfusion lung scanLocation Code: [id number]: Pulmonary embolus with shortness of breathCOMPARISON: Chest x-ray from the same dayCOMMENT: Routine images of the lungs were obtained after intravenous injection of 6.35 mCi 99 M technetium MAA.Perfusion images demonstrate diffusely heterogeneous and patchy perfusion throughout the lung wetzel in keeping with the pulmonary congestion and interstitial prominence seen on chest radiograph. There are no dominant peripheral segmental or subsegmental perfusion defects.IMPRESSION: Heterogeneous perfusion scan without comparison inflammatory scan but with overall low probability for pulmonary embolus.Electronically signed by: Axel Gupta MD 07/22/2022 3:46 PM [facility] XR CHEST 1 VIEW 2022-07-22 PORTABLE 15:45:57 [facility] : 1945 Sex: M EXAMI NATION:XR CHEST 1 VIEW PORTABLECLINICAL INDICATION:Male, 77 years year old with PER GREGCOMPARISON: None.FINDINGS:Single view(s) of the chest submitted.Support Devices: Right chest tunneled dialysis catheter noted with tip overlying the superior vena cava.Heart/Mediastinum : Cardiac silhouette is normal in size. Mediastinal contours are normal.Lungs/Pleura: The lungs are clear and well inflated. There is no pneumothorax or pleural effusion.Bones: Visualized skeleton is normal.IMPRESSION:No acute radiographic abnormality.Electronic ally signed by: Bienvenido Cuenca MD 07/22/2022 3:45 PM NURSE PRACTITIONER PER DIEM POCT GLUCOSE (AUTOMATED) 2021-09-11 17:56:19 Test Item Value Reference Range Interpretation Comme nts POCT GLU (test code = 6870559135) 143 mg/dL 70-110 H Lab Interpretation (test code = 19650-1) [facility]11 14:31:01 Test Item Value Reference Range Interpretation Comments POCT GLU (test code = 6468081053) 140 mg/dL 70-110 H Lab Interpretation (test code = Abnormal 08998-3) [facility] METABOLIC PANEL (NA, K, CL, CO2, GLUCOSE, BUN, CREATININE, CA)2021-09-11 11:27:07 Test Item Value Reference Range Interpretation Comments NA (test code = 142 mmol/L 135-145 2796193310) K (test code = 4.7 mmol/L 3.5-5.0 6064553141) CL (test code = 116 mmol/L 98-108 H 1456916347) CO2 TOTAL (test code = 21 mmol/L 23-31 L 4332678332) AGAP (test code = 2-16 5044141237) BUN (test code = 53 mg/dL 7-23 H 5493005474) GLUCOSE (test code = 126 mg/dL 70-110 H 5142611182) CREATININE (test code = 2.92 mg/dL 0.60-1.25 H 2169814660) CALCIUM (test code = 8.8 mg/dL 8.6-10.6 7508299798) eGFR (test code = mL/min/1.73m2 7647216785) RADHA (test code = RADHA) Association of [...] tests). Lab Interpretation Abnormal (test code = 34729-0) [facility] WITH [id number] 11:10:42 Test Item Value Reference Range Interpretation Comments WBC (test code = See_Comment [Automated 8190-2) message] The sy stem which generated this result transmitted reference range : 4.20 - 10.70 10*3/?L. The reference range was not used to interpret this result as normal/abnormal . RBC (test code = See_Comment L [Automated 429-8) message] The sy stem which generated this [...] (test code = 52.9 fL 38.5-51.6 H 01907-4) RDW-CV (test code = 15.3 % 12.1-15.4 788-0) PLT (test code = See_Comment [Automated 777-3) message] The sy stem which generated this result transmitted reference range : 150 - 328 10*3/ ?L. The reference r hilary was not used to interpret this result as normal/abnormal . MPV (test code = 10.4 fL 9.8-13.0 93462-2) NRBC/100 WBC (test See_Comment [Automat ed code = 3123323150) message] The system which generated this result transmitted reference range : 0.0 - 10.0 /100 WBCs. The refer ence range was not u sed to interpret th is result as normal/abnormal . NRBC x10^3 (test code <0.01 See_Comment [Auto mated = 7755335655) message] The s ystem which generated this result transmitted reference range : 10*3/?L. The reference range was not used to interpret this result as normal/abnormal . GRAN MAT (NEUT) % 77.5 % (test code = 770-8) IMM GRAN % (test code 0.50 % = 8418132740) LYMPH % (test code = 15.6 % 736-9) MONO % (test code = 5.5 % 5905-5) EOS % (test code = 0.9 % 713-8) BASO % (test code = 0.0 % 706-2) GRAN MAT x10^3(ANC) 4.93 10*3/uL 1.99-6.95 (test code = 2207627454) IMM GRAN x10^3 (test 0.03 10*3/uL 0.00-0.06 code = 0843797564) LYMPH x10^3 (test code 0.99 10*3/uL 1.09-3.23 L = 731-0) MONO x10^3 (test code 0.35 10*3/uL 0.36-1.02 L = 742-7) EOS x10^3 (test code = 0.06 10*3/uL 0.06-0.53 711-2) BASO x10^3 (test code <0.03 0.01-0.09 = 704-7) Lab Interpretation Abnormal (test code = 89649-6) [facility] GLUCOSE (AUTOMATED)2021-09-11 02:38:30 Test Item Value Reference Range Interpretation Comments POCT GLU (test code = 1423195737) 195 mg/dL 70-110 H Lab Interpretation (test code = Abnormal 81432-5) [facility] GLUCOSE (AUTOMATED)2021-09-10 23:44:28 Test Item Value Reference Range Interpretation Comments POCT GLU (test code = 1506988955) 147 mg/dL 70-110 H Lab Interpretation (test code = Abnormal 74698-8) [facility] GLUCOSE (AUTOMATED)2021-09-10 18:03:55 Test Item Value Reference Range Interpretation Comments POCT GLU (test code = 0633207587) 162 mg/dL 70-110 H Lab Interpretation (test code = Abnormal 58071-5) [facility]89505[facility]TOTAL CHOLESTEROL, TRIGLYCERIDES, HDL)2021-09-10 16:55:36 Test Item Value Reference Range Interpretation Comments CHOL (test code = 93 mg/dL 120-200 L 3087024740) HDL (test code = 56 mg/dL >40 1531434632) HDLC RATIO (test code = See_Comment [Au tomated message] 6896288080) The system [employer] generated this result transmitted ref erence range: <=5.0. T he reference range was not used to int erpret this result as normal/abnormal . TRIG (test code = 85 mg/dL 30-170 3751523675) LDL CHOL (test code = 20 mg/dL See_Comment [Auto mated message] 28478-4) The system [employer] generated this result transmitted ref erence range: <=160. T he reference range was not used to int erpret this result as normal/abnormal . VLDL (test code = 17 mg/dL 5-60 4101649214) Lab Interpretation (test Abnormal code = 16655-7) [facility] GLUCOSE (AUTOMATED)2021-09-10 14:34:31 Test Item Value Reference Range Interpretation Comments POCT GLU (test code = 9637959138) 150 mg/dL 70-110 H Lab Interpretation (test code = Abnormal 99484-5) [facility] GLUCOSE (AUTOMATED)2021-09-10 03:18:02 Test Item Value Reference Range Interpretation Comments POCT GLU (test code = 4793547720) 163 mg/dL 70-110 H Lab Interpretation (test code = Abnormal 42687-1) [facility] GLUCOSE (AUTOMATED)2021-09-09 23:22:00 Test Item Value Reference Range Interpretation Comments POCT GLU (test code = 3029811847) 153 mg/dL 70-110 H Lab Interpretation (test code = Abnormal 98878-1) [id number] 20:42:21 Test Item Value Reference Range Interpretation Comments NT-proBNP (test code 3860 pg/mL See_Comment H [Autom ated = 0841387458) message] The system which generated this result transmitted reference range : <=450. The reference range was not used to interpret this result as normal/abnormal . RADHA (test code = RADHA) Biotin has been reported to cause a negative bias, interpret results relative to patient's use of biotin. Lab Interpretation Abnormal (test code = 66633-4) [facility] GLUCOSE (AUTOMATED)2021-09-09 17:29:37 Test Item Value Reference Range Interpretation Comments POCT GLU (test code = 3125814490) 121 mg/dL 70-110 H Lab Interpretation (test code = Abnormal 02880-4) [facility] GLUCOSE (AUTOMATED)2021-09-09 13:54:41 Test Item Value Reference Range Interpretation Comments POCT GLU (test code = 9948045779) 118 mg/dL 70-110 H Lab Interpretation (test code = Abnormal 90224-1) [facility] (NA, K, CL, CO2, GLUCOSE, BUN, CREATININE, CA)2021-09-09 13:01:38 Test Item Value Reference Range Interpretation Comments NA (test code = 141 mmol/L 135-145 2718607655) K (test code = 4.7 mmol/L 3.5-5.0 2266439082) CL (test code = 115 mmol/L 98-108 H 6009664891) CO2 TOTAL (test code = 22 mmol/L 23-31 L 1943653718) AGAP (test code = 2-16 9371818908) BUN (test code = 59 mg/dL 7-23 H 0322656085) GLUCOSE (test code = 114 mg/dL 70-110 H 0848988501) CREATININE (test code = 3.09 mg/dL 0.60-1.25 H 3153434505) CALCIUM (test code = 8.9 mg/dL 8.6-10.6 2619686672) eGFR (test code = mL/min/1.73m2 6177419794) RADHA (test code = RADHA) Association of [...] tests). Lab Interpretation Abnormal (test code = 25427-7) [facility] WITH [id number] 12:42:15 Test Item Value Reference Range Interpretation [...] (test code = 52.5 fL 38.5-51.6 H 12703-9) RDW-CV (test code = 15.1 % 12.1-15.4 788-0) PLT (test code = See_Comment [Automated 777-3) message] The sy stem which generated this result transmitted reference range : 150 - 328 10*3/ ?L. The reference r hilary was not used to interpret this result as normal/abnormal . MPV (test code = 10.5 fL 9.8-13.0 24863-5) NRBC/100 WBC (test See_Comment [Automat ed code = 6040331970) message] The system which generated this result transmitted reference range : 0.0 - 10.0 /100 WBCs. The refer ence range was not u sed to interpret th is result as normal/abnormal . NRBC x10^3 (test code <0.01 See_Comment [Auto mated = 6547294628) message] The s ystem which generated this result transmitted reference range : 10*3/?L. The reference range was not used to interpret this result as normal/abnormal . GRAN MAT (NEUT) % 81.8 % (test code = 770-8) IMM GRAN % (test code 0.50 % = 7525876501) LYMPH % (test code = 13.0 % 736-9) MONO % (test code = 4.3 % 5905-5) EOS % (test code = 0.4 % 713-8) BASO % (test code = 0.0 % 706-2) GRAN MAT x10^3(ANC) 6.71 10*3/uL 1.99-6.95 (test code = 0316486511) IMM GRAN x10^3 (test 0.04 10*3/uL 0.00-0.06 code = 8145991970) LYMPH x10^3 (test code 1.07 10*3/uL 1.09-3.23 L = 731-0) MONO x10^3 (test code 0.35 10*3/uL 0.36-1.02 L = 742-7) EOS x10^3 (test code = 0.03 10*3/uL 0.06-0.53 L 711-2) BASO x10^3 (test code <0.03 0.01-0.09 = 704-7) Lab Interpretation Abnormal (test code = 38923-0) [facility] CULTURE [id number] 06:01:53 Test Item Value Reference Range Interpretation Comments Blood Culture-Aerobic No organisms No growth Previo us (test code = 01113-8) isolated prelim inary verified result was Culture In Progress on 09/04/2021 at 03 01 CSTPrevious preliminary verified result was No growth a t 24 hours on 09/05/2021 at 00 01 CSTPrevious preliminary verified result was No growth a t 48 hours on 09/06/2021 at 00 01 CSTPrevious preliminary verified result was No growth a t 72 hours on 09/07/2021 at 00 01 NURSE PRACTITIONER PER DIEM Blood No organisms No growth Previous Culture-Anaerobic isolated preliminar y (test code = 59710-6) verifi ed result was Culture In Progress on 09/04/2021 at 03 01 CSTPrevious preliminary verified result was No growth a t 24 hours on 09/05/2021 at 00 01 CSTPrevious preliminary verified result was No growth a t 48 hours on 09/06/2021 at 00 01 CSTPrevious preliminary verified result was No growth a t 72 hours on 09/07/2021 at 00 01 NURSE PRACTITIONER PER DIEM Lab Interpretation Normal (test code = 53883-7) [facility] CULTURE [id number] 06:01:53 Test Item Value Reference Range Interpretation Comments Blood Culture-Aerobic No organisms No growth Previo us (test code = 58756-7) isolated prelim inary verified result was Culture In Progress on 09/04/2021 at 03 01 CSTPrevious preliminary verified result was No growth a t 24 hours on 09/05/2021 at 00 01 CSTPrevious preliminary verified result was No growth a t 48 hours on 09/06/2021 at 00 01 CSTPrevious preliminary verified result was No growth a t 72 hours on 09/07/2021 at 00 01 NURSE PRACTITIONER PER DIEM Blood No organisms No growth Previous Culture-Anaerobic isolated preliminar y (test code = 77130-7) verifi ed result was Culture In Progress on 09/04/2021 at 03 01 CSTPrevious preliminary verified result was No growth a t 24 hours on 09/05/2021 at 00 01 CSTPrevious preliminary verified result was No growth a t 48 hours on 09/06/2021 at 00 01 CSTPrevious preliminary verified result was No growth a t 72 hours on 09/07/2021 at 00 01 NURSE PRACTITIONER PER DIEM Lab Interpretation Normal (test code = 45240-7) [facility] GLUCOSE (AUTOMATED)2021-09-09 03:41:10 Test Item Value Reference Range Interpretation Comments POCT GLU (test code = 6277086631) 196 mg/dL 70-110 H Lab Interpretation (test code = Abnormal 18767-8) [facility] GLUCOSE (AUTOMATED)2021-09-08 23:12:05 Test Item Value Reference Range Interpretation Comments POCT GLU (test code = 9958634216) 138 mg/dL 70-110 H Lab Interpretation (test code = Abnormal 24087-2) [facility] GLUCOSE (AUTOMATED)2021-09-08 17:46:12 Test Item Value Reference Range Interpretation Comments POCT GLU (test code = 4986108305) 181 mg/dL 70-110 H Lab Interpretation (test code = Abnormal 03896-3) [facility] GLUCOSE (AUTOMATED)2021-09-08 13:53:55 Test Item Value Reference Range Interpretation Comments POCT GLU (test code = 2565985243) 179 mg/dL 70-110 H Lab Interpretation (test code = Abnormal 50791-4) [facility] GLUCOSE (AUTOMATED)2021-09-08 03:04:37 Test Item Value Reference Range Interpretation Comments POCT GLU (test code = 0293083051) 241 mg/dL 70-110 H Lab Interpretation (test code = Abnormal 67850-3) [facility] GLUCOSE (AUTOMATED)2021-09-07 23:44:53 Test Item Value Reference Range Interpretation Comments POCT GLU (test code = 0629905775) 268 mg/dL 70-110 H Lab Interpretation (test code = Abnormal 32220-7) [facility] GLUCOSE (AUTOMATED)2021-09-07 19:18:14 Test Item Value Reference Range Interpretation Comments POCT GLU (test code = 0436519887) 208 mg/dL 70-110 H Lab Interpretation (test code = Abnormal 12356-2) [facility] Culture - Peripheral # [id number] 16:02:10 Test Item Value Reference Range Interpretation Comments Blood Culture-Aerobic No organisms No growth Previo us (test code = 55364-1) isolated prelim inary verified result was Culture In Progress on 09/02/2021 at 13 02 CSTPrevious preliminary verified result was No growth a t 24 hours on 09/03/2021 at 10 01 CSTPrevious preliminary verified result was No growth a t 48 hours on 09/04/2021 at 10 01 CSTPrevious preliminary verified result was No growth a t 72 hours on 09/05/2021 at 10 01 NURSE PRACTITIONER PER DIEM Blood No organisms No growth Previous Culture-Anaerobic isolated preliminar y (test code = 90550-9) verifi ed result was Culture In Progress on 09/02/2021 at 13 02 CSTPrevious preliminary verified result was No growth a t 24 hours on 09/03/2021 at 10 01 CSTPrevious preliminary verified result was No growth a t 48 hours on 09/04/2021 at 10 01 CSTPrevious preliminary verified result was No growth a t 72 hours on 09/05/2021 at 10 01 NURSE PRACTITIONER PER DIEM Lab Interpretation Normal (test code = 99440-8) [facility] GLUCOSE (AUTOMATED)2021-09-07 15:05:58 Test Item Value Reference Range Interpretation Comments POCT GLU (test code = 8836820632) 158 mg/dL 70-110 H Lab Interpretation (test code = Abnormal 94593-1) [facility] METABOLIC PANEL (NA, K, CL, CO2, GLUCOSE, BUN, CREATININE, CA)2021-09-07 12:31:00 Test Item Value Reference Range Interpretation Comments NA (test code = 140 mmol/L 135-145 1880216194) K (test code = 4.9 mmol/L 3.5-5.0 9926191596) CL (test code = 113 mmol/L 98-108 H 2053570007) CO2 TOTAL (test code = 22 mmol/L 23-31 L 8090661335) AGAP (test code = 2-16 0915502533) BUN (test code = 51 mg/dL 7-23 H 3843196319) GLUCOSE (test code = 179 mg/dL 70-110 H 2374721428) CREATININE (test code = 2.98 mg/dL 0.60-1.25 H 7899559183) CALCIUM (test code = 9.0 mg/dL 8.6-10.6 7151166832) eGFR (test code = mL/min/1.73m2 6424847541) RADHA (test code = RADHA) Association of [...] tests). Lab Interpretation Abnormal (test code = 29774-7) [facility] WITH [id number] 12:23:57 Test Item Value Reference Range Interpretation [...] (test code = 51.8 fL 38.5-51.6 H 57363-3) RDW-CV (test code = 14.9 % 12.1-15.4 788-0) PLT (test code = See_Comment [Automated 777-3) message] The sy stem which generated this result transmitted reference range : 150 - 328 10*3/ ?L. The reference r hilary was not used to interpret this result as normal/abnormal . MPV (test code = 10.1 fL 9.8-13.0 62164-1) NRBC/100 WBC (test See_Comment [Automat ed code = 3629589358) message] The system which generated this result transmitted reference range : 0.0 - 10.0 /100 WBCs. The refer ence range was not u sed to interpret th is result as normal/abnormal . NRBC x10^3 (test code <0.01 See_Comment [Auto mated = 3199493130) message] The s ystem which generated this result transmitted reference range : 10*3/?L. The reference range was not used to interpret this result as normal/abnormal . GRAN MAT (NEUT) % 88.6 % (test code = 770-8) IMM GRAN % (test code 0.40 % = 4226455261) LYMPH % (test code = 7.1 % 736-9) MONO % (test code = 3.8 % 5905-5) EOS % (test code = 0.0 % 713-8) BASO % (test code = 0.1 % 706-2) GRAN MAT x10^3(ANC) 6.02 10*3/uL 1.99-6.95 (test code = 9775847738) IMM GRAN x10^3 (test 0.03 10*3/uL 0.00-0.06 code = 0126557874) LYMPH x10^3 (test code 0.48 10*3/uL 1.09-3.23 L = 731-0) MONO x10^3 (test code 0.26 10*3/uL 0.36-1.02 L = 742-7) EOS x10^3 (test code = <0.03 0.06-0.53 L 711-2) BASO x10^3 (test code <0.03 0.01-0.09 = 704-7) Lab Interpretation Abnormal (test code = 97681-8) [facility] GLUCOSE (AUTOMATED)2021-09-07 03:05:46 Test Item Value Reference Range Interpretation Comments POCT GLU (test code = 3941807840) 235 mg/dL 70-110 H Lab Interpretation (test code = Abnormal 46880-9) [facility] GLUCOSE (AUTOMATED)2021-09-07 01:42:32 Test Item Value Reference Range Interpretation Comments POCT GLU (test code = 1535791640) 291 mg/dL 70-110 H Lab Interpretation (test code = Abnormal 95072-5) [facility] GLUCOSE (AUTOMATED)2021-09-06 22:58:03 Test Item Value Reference Range Interpretation Comments POCT GLU (test code = 5551339885) 291 mg/dL 70-110 H Lab Interpretation (test code = Abnormal 74449-0) [facility] GLUCOSE (AUTOMATED)2021-09-06 17:52:21 Test Item Value Reference Range Interpretation Comments POCT GLU (test code = 3396772097) 185 mg/dL 70-110 H Lab Interpretation (test code = Abnormal 32537-8) [facility] GLUCOSE (AUTOMATED)2021-09-06 14:03:24 Test Item Value Reference Range Interpretation Comments POCT GLU (test code = 5163625393) 131 mg/dL 70-110 H Lab Interpretation (test code = Abnormal 25941-4) [facility] WITH [id number] 09:20:33 Test Item Value Reference Range Interpretation [...] (test code = 53.1 fL 38.5-51.6 H 97521-3) RDW-CV (test code = 15.1 % 12.1-15.4 788-0) PLT (test code = See_Comment [Automated 777-3) message] The sy stem which generated this result transmitted reference range : 150 - 328 10*3/ ?L. The reference r hilary was not used to interpret this result as normal/abnormal . MPV (test code = 10.0 fL 9.8-13.0 05589-5) NRBC/100 WBC (test See_Comment [Automat ed code = 5718506184) message] The system which generated this result transmitted reference range : 0.0 - 10.0 /100 WBCs. The refer ence range was not u sed to interpret th is result as normal/abnormal . NRBC x10^3 (test code <0.01 See_Comment [Auto mated = 4853222683) message] The s ystem which generated this result transmitted reference range : 10*3/?L. The reference range was not used to interpret this result as normal/abnormal . GRAN MAT (NEUT) % 85.6 % (test code = 770-8) IMM GRAN % (test code 0.70 % = 1743809606) LYMPH % (test code = 8.9 % 736-9) MONO % (test code = 4.7 % 5905-5) EOS % (test code = 0.0 % 713-8) BASO % (test code = 0.1 % 706-2) GRAN MAT x10^3(ANC) 6.55 10*3/uL 1.99-6.95 (test code = 9669315661) IMM GRAN x10^3 (test 0.05 10*3/uL 0.00-0.06 code = 5029201674) LYMPH x10^3 (test code 0.68 10*3/uL 1.09-3.23 L = 731-0) MONO x10^3 (test code 0.36 10*3/uL 0.36-1.02 = 742-7) EOS x10^3 (test code = <0.03 0.06-0.53 L 711-2) BASO x10^3 (test code <0.03 0.01-0.09 = 704-7) Lab Interpretation Abnormal (test code = 40624-9) [facility] [id number] 09:14:11 Test Item Value Reference Interpretation Comments Range TROPONIN I (test 0.061 ng/mL See_Comment H [Automated code = 8399358291) message] The system which generated this result [...] biotin. Lab Interpretation Abnormal (test code = 99541-3) [facility]20[facility] 09:02:46 Test Item Value Reference Range Interpretation Comments MAGNESIUM (test code = 8751300771) 2.0 mg/dL 1.7-2.4 Lab Interpretation (test code = Normal 37087-2) [facility] (NA, K, CL, CO2, GLUCOSE, BUN, CREATININE, CA)2021-09-06 09:02:26 Test Item Value Reference Range Interpretation Comments NA (test code = 138 mmol/L 135-145 4609728894) K (test code = 5.2 mmol/L 3.5-5.0 H 6384821564) CL (test code = 112 mmol/L 98-108 H 6951586508) CO2 TOTAL (test code = 21 mmol/L 23-31 L 6774350104) AGAP (test code = 2-16 6251656667) BUN (test code = 51 mg/dL 7-23 H 6142676882) GLUCOSE (test code = 137 mg/dL 70-110 H 6078129777) CREATININE (test code = 3.15 mg/dL 0.60-1.25 H 0329582849) CALCIUM (test code = 9.1 mg/dL 8.6-10.6 4906044911) eGFR (test code = mL/min/1.73m2 1392660118) RADHA (test code = RADHA) Association of [...] tests). Lab Interpretation Abnormal (test code = 40130-9) [facility]2022-[facility]-27 09:02:26 Test Item Value Reference Range Interpretation Comments PHOSPHORUS (test code = 3082954497) 3.4 mg/dL 2.5-5.0 Lab Interpretation (test code = Normal 93824-3) [facility] GLUCOSE (AUTOMATED)2021-09-06 02:58:54 Test Item Value Reference Range Interpretation Comments POCT GLU (test code = 5959926805) 229 mg/dL 70-110 H Lab Interpretation (test code = Abnormal 43980-0) [facility] BrookVancomycin Random [id number] 23:36:47 Test Item Value Reference Range Interpretation Comments VANCO RANDOM (test code = 7.6 ug/mL 5704738229) [facility] GLUCOSE (AUTOMATED)2021-09-05 22:23:59 Test Item Value Reference Range Interpretation Comments POCT GLU (test code = 5327172409) 307 mg/dL 70-110 H Lab Interpretation (test code = Abnormal 35687-8) [facility] GLUCOSE (AUTOMATED)2021-09-05 17:43:53 Test Item Value Reference Range Interpretation Comments POCT GLU (test code = 6595271701) 133 mg/dL 70-110 H Lab Interpretation (test code = Abnormal 52787-7) [facility] BrookN-TERMIN[facility] [id number] 17:02:17 Test Item Value Reference Range Interpretation Comments NT-proBNP (test code 4570 pg/mL See_Comment H [Autom ated = 5608954310) message] The system which generated this result transmitted reference range : <=450. The reference range was not used to interpret this result as normal/abnormal . RADHA (test code = RADHA) Biotin has been reported to cause a negative bias, interpret results relative to patient's use of biotin. Lab Interpretation Abnormal (test code = 48015-0) [facility] METABOLIC PAN[facility] (NA, K, CL, CO2, GLUCOSE, BUN, CREATININE, CA)2021-09-05 16:53:35 Test Item Value Reference Range Interpretation Comments NA (test code = 138 mmol/L 135-145 4429301819) K (test code = 4.8 mmol/L 3.5-5.0 1774001616) CL (test code = 110 mmol/L 98-108 H 7892339534) CO2 TOTAL (test code = 23 mmol/L 23-31 7155263135) AGAP (test code = 2-16 3660898816) BUN (test code = 50 mg/dL 7-23 H 0802687810) GLUCOSE (test code = 106 mg/dL 70-110 8451565381) CREATININE (test code = 3.36 mg/dL 0.60-1.25 H 4530640442) CALCIUM (test code = 8.9 mg/dL 8.6-10.6 4504446350) eGFR (test code = mL/min/1.73m2 8017268200) RADHA (test code = RADHA) Association of [...] tests). Lab Interpretation Abnormal (test code = 89951-0) [facility] Culture - Peripheral # 15:16:24 Test Item Value Reference Range Interpretation Comments Blood Culture-Aerobic No organisms No growth Previo us (test code = 43604-9) isolated prelim inary verified result was Culture In Progress on 09/02/2021 at 13 02 CSTPrevious preliminary verified result was No growth a t 24 hours on 09/03/2021 at 22 13 NURSE PRACTITIONER PER DIEM Blood Culture positive. No growth AA Previous Culture-Anaerobic See Blood Culture preli minary (test code = 68895-7) Workup for verifi ed result additional was Culture In information. Progress on 09/02/2021 at 13 02 CSTPrevious preliminary verified result was No growth a t 24 hours on 09/03/2021 at 10 01 NURSE PRACTITIONER PER DIEM Lab Interpretation Abnormal (test code = 87912-7) [facility] GLUCOSE (AUTOMATED)2021-09-05 13:47:13 Test Item Value Reference Range Interpretation Comments POCT GLU (test code = 8163655372) 116 mg/dL 70-110 H Lab Interpretation (test code = Abnormal 93202-2) [facility] GLUCOSE (AUTOMATED)2021-09-05 02:37:48 Test Item Value Reference Range Interpretation Comments POCT GLU (test code = 3247285969) 238 mg/dL 70-110 H Lab Interpretation (test code = Abnormal 70963-7) [facility]2021-09-04 23:23:12 Test Item Value Reference Range Interpretation Comments POCT GLU (test code = 4903976861) 211 mg/dL 70-110 H Lab Interpretation (test code = Abnormal 69916-8) [facility]PROCALCITONIN2022-01-25 18:15:57 Test Item Value Reference Range Interpretation Comments Procalcitonin (test 0.11 ng/mL <0.07 H code = 0882046608) RADHA (test code = RADHA) INTERPRETATION OF [...] lung abscess/empyema. For further information please refer to:[email or web address] Lab Interpretation Abnormal (test code = 40207-4) [facility] GLUCOSE (AUTOMATED)2021-09-04 17:52:04 Test Item Value Reference Range Interpretation Comments POCT GLU (test code = 5717555470) 182 mg/dL 70-110 H Lab Interpretation (test code = Abnormal 52578-4) [facility] GLUCOSE (AUTOMATED)2021-09-04 13:47:06 Test Item Value Reference Range Interpretation Comments POCT GLU (test code = 2614935908) 170 mg/dL 70-110 H Lab Interpretation (test code = Abnormal 22326-3) [facility] BrookTROP[facility]IN [id number] 12:23:39 Test Item Value Reference Interpretation Comments Range TROPONIN I (test 0.046 ng/mL See_Comment H [Automated code = 8848987117) message] The system which generated this result [...] biotin. Lab Interpretation Abnormal (test code = 28284-9) [facility] [id number] 12:20:23 Test Item Value Reference Range Interpretation Comments NT-proBNP (test code 6500 pg/mL See_Comment H [Autom ated = 4956670359) message] The system which generated this result transmitted reference range : <=450. The reference range was not used to interpret this result as normal/abnormal . RADHA (test code = RADHA) Biotin has been reported to cause a negative bias, interpret results relative to patient's use of biotin. Lab Interpretation Abnormal (test code = 44076-8) [facility]OL[facility] (NA, K, CL, CO2, GLUCOSE, BUN, CREATININE, CA)2021-09-04 12:12:37 Test Item Value Reference Range Interpretation Comments NA (test code = 137 mmol/L 135-145 0741025735) K (test code = 5.0 mmol/L 3.5-5.0 3580902931) CL (test code = 109 mmol/L 98-108 H 4556209261) CO2 TOTAL (test code = 21 mmol/L 23-31 L 2285874272) AGAP (test code = 2-16 2191568091) BUN (test code = 47 mg/dL 7-23 H 5195576979) GLUCOSE (test code = 192 mg/dL 70-110 H 1416136132) CREATININE (test code = 3.30 mg/dL 0.60-1.25 H 6984839395) CALCIUM (test code = 8.6 mg/dL 8.6-10.6 4355217395) eGFR (test code = mL/min/1.73m2 4745333354) RADHA (test code = RADHA) Association of [...] tests). Lab Interpretation Abnormal (test code = 45978-5) [facility] WITH [id number] 12:02:38 Test Item Value Reference Range Interpretation Comments WBC (test code = See_Comment H [Automated 1967-2) message] The system which generated this result [...] (test code = 53.5 fL 38.5-51.6 H 29109-1) RDW-CV (test code = 15.4 % 12.1-15.4 788-0) PLT (test code = See_Comment [Automated 777-3) message] The system which generated this result transmit jose reference range : 150 - 328 10*3/ ?L. The reference range was not u sed to interpret th is result as normal/abnormal . MPV (test code = 10.5 fL 9.8-13.0 06336-6) NRBC/100 WBC (test See_Comment [Automat ed code = 5767285524) message] The system which generated this result transmit jose reference range : 0.0 - 10.0 /100 WBCs. The reference range was not used to interpret this result as normal/abnormal . NRBC x10^3 (test code <0.01 See_Comment [Auto mated = 1742583557) message] The system which generated this result transmit jose reference range : 10*3/?L. The reference range was not used to interpret this result as normal/abnormal . GRAN MAT (NEUT) % 90.0 % (test code = 770-8) IMM GRAN % (test code 0.60 % = 3639344072) LYMPH % (test code = 5.0 % 736-9) MONO % (test code = 4.3 % 5905-5) EOS % (test code = 0.0 % 713-8) BASO % (test code = 0.1 % 706-2) GRAN MAT x10^3(ANC) 10.53 10*3/uL 1.99-6.95 H (test code = 4174788061) IMM GRAN x10^3 (test 0.07 10*3/uL 0.00-0.06 H code = 1555045276) LYMPH x10^3 (test code 0.58 10*3/uL 1.09-3.23 L = 731-0) MONO x10^3 (test code 0.50 10*3/uL 0.36-1.02 = 742-7) EOS x10^3 (test code = <0.03 0.06-0.53 L 711-2) BASO x10^3 (test code <0.03 0.01-0.09 = 704-7) Lab Interpretation Abnormal (test code = 23989-4) [facility] GLUCOSE (AUTOMATED)2021-09-04 11:55:48 Test Item Value Reference Range Interpretation Comments POCT GLU (test code = 2370311836) 189 mg/dL 70-110 H Lab Interpretation (test code = Abnormal 23841-6) [facility] GLUCOSE (AUTOMATED)2021-09-04 01:41:45 Test Item Value Reference Range Interpretation Comments POCT GLU (test code = 1413161401) 166 mg/dL 70-110 H Lab Interpretation (test code = Abnormal 96993-8) [facility] BrookVITAMIN B12, [id number] 23:08:05 Test Item Value Reference Range Interpretation Comments VIT B12 (test code = >1000 240-930 H 8690812949) RADHA (test code = RADHA) Biotin has been reported to cause a positive bias, interpret results relative to patient's use of biotin. Lab Interpretation (test Abnormal code = 93165-1) [facility] GLUCOSE (AUTOMATED)2021-09-03 22:54:51 Test Item Value Reference Range Interpretation Comments POCT GLU (test code = 3063730295) 229 mg/dL 70-110 H Lab Interpretation (test code = Abnormal 49328-1) [facility] [id number] 17:34:51 Test Item Value Reference Range Interpretation Comments FREE T3 (test code = 9694108243) 2.41 pg/mL 2.77-5.27 L Lab Interpretation (test code = Abnormal 72384-2) [facility] GLUCOSE (AUTOMATED)2021-09-03 17:31:09 Test Item Value Reference Range Interpretation Comments POCT GLU (test code = 6717075043) 246 mg/dL 70-110 H Lab Interpretation (test code = Abnormal 52513-3) [facility] [id number] 17:00:47 Test Item Value Reference Range Interpretation Comments FREE T4 (test code = See_Comment [Autom ated message] 1391556680) The system [employer] generated this result transmitted ref erence range: 0.78 - 2 .20 ng/dL:. The ref erence range was not u sed to interpret this result as normal/abnor mal. Lab Interpretation (test Normal code = 01899-9) [facility]21-[facility] 14:17:24 Test Item Value Reference Range Interpretation Comments POCT GLU (test code = 6884666716) 232 mg/dL 70-110 H Lab Interpretation (test code = Abnormal 50396-4) [facility]TROP[facility] [id number] 11:01:15 Test Item Value Reference Interpretation Comments Range TROPONIN I (test 0.035 ng/mL See_Comment H [Automated code = 6189701668) message] The system which generated this result [...] biotin. Lab Interpretation Abnormal (test code = 20317-1) [facility] [id number] 10:58:19 Test Item Value Reference Range Interpretation Comments NT-proBNP (test code 3920 pg/mL See_Comment H [Autom ated = 0596917730) message] The system which generated this result transmitted reference range : <=450. The reference range was not used to interpret this result as normal/abnormal . RADHA (test code = RADHA) Biotin has been reported to cause a negative bias, interpret results relative to patient's use of biotin. Lab Interpretation Abnormal (test code = 21714-4) [facility] BrookMagnesium [id number] 10:50:15 Test Item Value Reference Range Interpretation Comments MAGNESIUM (test code = 2546331186) 2.1 mg/dL 1.7-2.4 Lab Interpretation (test code = Normal 26062-8) [facility] (NA, K, CL, CO2, GLUCOSE, BUN, CREATININE, CA)2021-09-03 10:49:54 Test Item Value Reference Range Interpretation Comments NA (test code = 140 mmol/L 135-145 1113144248) K (test code = 5.0 mmol/L 3.5-5.0 4114699265) CL (test code = 112 mmol/L 98-108 H 0281369551) CO2 TOTAL (test code = 21 mmol/L 23-31 L 4711115101) AGAP (test code = 2-16 2209717517) BUN (test code = 41 mg/dL 7-23 H 4909262806) GLUCOSE (test code = 205 mg/dL 70-110 H 7549320433) CREATININE (test code = 2.95 mg/dL 0.60-1.25 H 3158588524) CALCIUM (test code = 8.6 mg/dL 8.6-10.6 4565338362) eGFR (test code = mL/min/1.73m2 7291273290) RADHA (test code = RADHA) Association of [...] tests). Lab Interpretation Abnormal (test code = 74456-2) [facility] BrookURIC [id number] 10:49:54 Test Item Value Reference Range Interpretation Comments URIC ACID (test code = 2887579247) 5.1 mg/dL 3.6-8.0 Lab Interpretation (test code = Normal 86678-9) [facility] with [id number] 10:06:10 Test Item Value Reference Range Interpretation [...] (test code = 53.0 fL 38.5-51.6 H 42860-9) RDW-CV (test code = 15.2 % 12.1-15.4 788-0) PLT (test code = See_Comment [Automated 777-3) message] The sy stem which generated this result transmitted reference range : 150 - 328 10*3/ ?L. The reference r hilary was not used to interpret this result as normal/abnormal . MPV (test code = 10.1 fL 9.8-13.0 71266-7) NRBC/100 WBC (test See_Comment [Automat ed code = 9652286213) message] The system which generated this result transmitted reference range : 0.0 - 10.0 /100 WBCs. The refer ence range was not u sed to interpret th is result as normal/abnormal . NRBC x10^3 (test code <0.01 See_Comment [Auto mated = 8177463772) message] The s ystem which generated this result transmitted reference range : 10*3/?L. The reference range was not used to interpret this result as normal/abnormal . GRAN MAT (NEUT) % 94.4 % (test code = 770-8) IMM GRAN % (test code 0.50 % = 4264767913) LYMPH % (test code = 4.2 % 736-9) MONO % (test code = 0.9 % 5905-5) EOS % (test code = 0.0 % 713-8) BASO % (test code = 0.0 % 706-2) GRAN MAT x10^3(ANC) 5.20 10*3/uL 1.99-6.95 (test code = 3139553941) IMM GRAN x10^3 (test 0.03 10*3/uL 0.00-0.06 code = 7989987069) LYMPH x10^3 (test code 0.23 10*3/uL 1.09-3.23 L = 731-0) MONO x10^3 (test code 0.05 10*3/uL 0.36-1.02 L = 742-7) EOS x10^3 (test code = <0.03 0.06-0.53 L 711-2) BASO x10^3 (test code <0.03 0.01-0.09 = 704-7) Lab Interpretation Abnormal (test code = 02637-1) [id number] 07:55:03 Test Item Value Reference Range Interpretation Comments URIC ACID (test code = 5833632063) 5.3 mg/dL 3.6-8.0 Lab Interpretation (test code = Normal 67079-5) [facility]2022-01-24 07:43:46 Test Item Value Reference Range Interpretation Comments Procalcitonin (test 0.12 ng/mL <0.07 H code = 9265627057) RADHA (test code = RADHA) INTERPRETATION OF [...] lung abscess/empyema. For further information please refer to:[email or web address] Lab Interpretation Abnormal (test code = 21284-2) [facility]TR[facility] [id number] 03:12:06 Test Item Value Reference Interpretation Comments Range TROPONIN I (test 0.029 ng/mL See_Comment [Automated code = 9598014788) message] The system which generated this result [...] biotin. Lab Interpretation Normal (test code = 48095-1) [facility] BrookPhosphorus [id number] 02:59:26 Test Item Value Reference Range Interpretation Comments PHOSPHORUS (test code = 6055253809) 3.5 mg/dL 2.5-5.0 Lab Interpretation (test code = Normal 60377-6) [facility] BrookFERRITIN [id number] 02:43:44 Test Item Value Reference Range Interpretation Comments FERRITIN (test code = 132.0 ng/mL 18.0-464.0 1800707545) RADHA (test code = RADHA) Biotin has been reported to cause a negative bias, interpret results relative to patient's use of biotin. Lab Interpretation (test Normal code = 38234-3) [facility] (A1C)2021-09-03 02:22:16 Test Item Value Reference Range Interpretation Comments HGB A1C (test code = 6.3 % 4.0-5.7 H 4548-4) RADHA (test code = RADHA) Reference RangesNormal: <5.7%Prediabetes: 5.7 - 6.4%Diabetes: > 6.5% Lab Interpretation (test Abnormal code = 19736-6) [facility] [id number] 02:15:44 Test Item Value Reference Range Interpretation Comments IRON (test code = 0883926811) 21 ug/dL 50-160 L TIBC (test code = 0510665599) 294 ug/dL 250-410 % FE SAT (test code = 4831329429) 7 % 20-50 L Lab Interpretation (test code = Abnormal 76340-7) [facility] Brook[facility]YROID STIMULATING [id number] 01:17:43 Test Item Value Reference Range Interpretation Comments TSH (test code = See_Comment H [Automated message] 4408353504) The system [employer] generated this result transmitted ref erence range: 0.45 - 4 .70 mIU/L. The refe rence range was not u sed to interpret this result as normal/abnor mal. Lab Interpretation (test Abnormal code = 30669-5) [facility] GLUCOSE (AUTOMATED)2021-09-02 22:51:11 Test Item Value Reference Range Interpretation Comments POCT GLU (test code = 0664118814) 169 mg/dL 70-110 H Lab Interpretation (test code = Abnormal 06427-6) [facility] GLUCOSE (AUTOMATED)2021-09-02 21:35:04 Test Item Value Reference Range Interpretation Comments POCT GLU (test code = 4366486522) 176 mg/dL 70-110 H Lab Interpretation (test code = Abnormal 99713-8) [facility] Arterial Blood Gas.2021-09-02 16:59:20 Test Item Value Reference Range Interpretation Comments PH (test code = 2) 7.35-7.45 L PCO2 (test code = See_Comment [Automate d message] 1261917352) The system [employer] generated this result transmitted ref erence range: 35 - 45 mmHg. The reference r hilary was not used to interpret this result as normal/abnor mal. PO2 (test code = See_Comment L [Automated message] 9283233329) The system [employer] generated this result transmitted ref erence range: 80 - 100 mmHg. The reference r hilary was not used to interpret this result as normal/abnor mal. HCO3 (test code = See_Comment L [Automate d message] 7215048478) The system [employer] generated this result transmitted ref erence range: 22 - 26 mEq/L. The reference r hilary was not used to interpret this result as normal/abnor mal. BE (test code = See_Comment L [Automated message] 1332670147) The system [employer] generated this result transmitted ref erence range: -3.0 - 3 .0 mEq/L. The refe rence range was not u sed to interpret this result as normal/abnor mal. Lab Interpretation (test Abnormal code = 72201-3) [facility]TROPONIN [id number] 16:13:32 Test Item Value Reference Interpretation Comments Range TROPONIN I (test 0.042 ng/mL See_Comment H [Automated code = 5168739895) message] The system which generated this result [...] biotin. Lab Interpretation Abnormal (test code = 37446-9) [facility]N-TERMINAL [id number] 16:10:31 Test Item Value Reference Range Interpretation Comments NT-proBNP (test code 3090 pg/mL See_Comment H [Autom ated = 3300738681) message] The system which generated this result transmitted reference range : <=450. The reference range was not used to interpret this result as normal/abnormal . RADHA (test code = RADHA) Biotin has been reported to cause a negative bias, interpret results relative to patient's use of biotin. Lab Interpretation Abnormal (test code = 11163-2) [facility]COMP. METABOLIC PANEL (77257)2021-09-02 16:02:09 Test Item Value Reference Range Interpretation Comments NA (test code = 141 mmol/L 135-145 4088406680) K (test code = 5.3 mmol/L 3.5-5.0 H 9645291147) CL (test code = 113 mmol/L 98-108 H 0152628405) CO2 TOTAL (test code = 21 mmol/L 23-31 L 5505992699) AGAP (test code = 2-16 6850041131) BUN (test code = 37 mg/dL 7-23 H 1806790036) GLUCOSE (test code = 167 mg/dL 70-110 H 7035326477) CREATININE (test code = 2.91 mg/dL 0.60-1.25 H 8845038961) TOTAL BILI (test code = 0.5 mg/dL 0.1-1.6 4651133221) CALCIUM (test code = 8.6 mg/dL 8.6-10.6 6204660236) T PROTEIN (test code = 6.4 g/dL 6.3-8.2 9941476777) ALBUMIN (test code = 3.6 g/dL 3.5-5.0 4364492441) ALK PHOS (test code = 128 U/L 34-122 H 3296944777) ALTv (test code = 21 U/L 5-50 1742-6) AST(SGOT) (test code = 17 U/L 13-40 5620781214) eGFR (test code = mL/min/1.73m2 9000320029) RADHA (test code = RADHA) Association of [...] tests). Lab Interpretation Abnormal (test code = 52479-6) [facility]IPASE2022-01-23 16:01:29 Test Item Value Reference Range Interpretation Comments LIPASE (test code = 5057039637) 102 U/L 0-220 Lab Interpretation (test code = Normal 09374-3) [facility]ACTIV[facility] PARTIAL THRMPLAS [id number] 15:59:08 Test Item Value Reference Range Interpretation Comments APTT Patient (test See_Comment [Automat ed code = 3173-2) message] The system which generated this result transmitted reference range : 23 - 38 Seconds . The reference range was not used to interpr et this result as normal/abnormal . RADHA (test code = RADHA) The [facility] patient population mean normal value for aPTT is 30 seconds. Lab Interpretation Normal (test code = 08581-5) [facility] BrookPROTHROMBIN TIME / [id number] 15:56:48 Test Item Value Reference Range Interpretation [...] tions. Lab Interpretation (test Normal code = 92189-5) [facility] BrookCB WITH [id number] 15:48:46 Test Item Value Reference Range Interpretation [...] (test code = 54.7 fL 38.5-51.6 H 39785-1) RDW-CV (test code = 15.5 % 12.1-15.4 H 788-0) PLT (test code = See_Comment [Automated 777-3) message] The sy stem which generated this result transmitted reference range : 150 - 328 10*3/ ?L. The reference r hilary was not used to interpret this result as normal/abnormal . MPV (test code = 9.8 fL 9.8-13.0 94413-0) NRBC/100 WBC (test See_Comment [Automat ed code = 0673893382) message] The system which generated this result transmitted reference range : 0.0 - 10.0 /100 WBCs. The refer ence range was not u sed to interpret th is result as normal/abnormal . NRBC x10^3 (test code <0.01 See_Comment [Auto mated = 9416153731) message] The s ystem which generated this result transmitted reference range : 10*3/?L. The reference range was not used to interpret this result as normal/abnormal . GRAN MAT (NEUT) % 76.7 % (test code = 770-8) IMM GRAN % (test code 0.40 % = 3833580831) LYMPH % (test code = 14.6 % 736-9) MONO % (test code = 6.4 % 5905-5) EOS % (test code = 1.5 % 713-8) BASO % (test code = 0.4 % 706-2) GRAN MAT x10^3(ANC) 6.25 10*3/uL 1.99-6.95 (test code = 5735729156) IMM GRAN x10^3 (test 0.03 10*3/uL 0.00-0.06 code = 2091131197) LYMPH x10^3 (test code 1.19 10*3/uL 1.09-3.23 = 731-0) MONO x10^3 (test code 0.52 10*3/uL 0.36-1.02 = 742-7) EOS x10^3 (test code = 0.12 10*3/uL 0.06-0.53 711-2) BASO x10^3 (test code 0.03 10*3/uL 0.01-0.09 = 704-7) Lab Interpretation Abnormal (test code = 03483-5) [facility]"
[2022-09-04 00:37] LABS: Absolute Lymphocytes (CBC) 1.6 K/uL (0.7-4.9); Hematocrit 29.4 % (39.6-49.0); Lymphocytes % 12.4 % (15.3-44.8); MPV 7.9 fL (7.6-11.3); RBC Red Blood Cell Count 3.19 M/uL (4.33-5.43)
[2022-09-04 00:39] LABS: Protime INR 1.06
[2022-09-04 01:05] LABS: Bilirubin Total 0.4 mg/dL (0.2-1.0); Protein, Total 7.9 g/dL (6.4-8.2)
[2022-09-04 01:12] LABS: SARS-COV-2 RT PCR NEGATIVE (NEGATIVE)
[2022-09-04] MEDS ORDERED: AZITHROMYCIN 500 MG INJ IVPB ONE (01:31)
[2022-09-04] MEDS ORDERED: NA CHLORIDE 0.9% 250 ML ONE (01:31)
[2022-09-04] MEDS ORDERED: CEFTRIAXONE 1000 MG/VIAL ONE (01:31)
[2022-09-04] MEDS ORDERED: NA CHLORIDE 0.9% 50 ML IV ONE (01:31)
[2022-09-04] MEDS ORDERED: CALCIUM GLUCONATE 1 GM IVPB 1 GM/50 ML BAG IV ONE (01:34)
[2022-09-04] MEDS ORDERED: INSULIN -REGULAR HUMAN 50 UNIT/0.5 ML ML ONE (01:34)
[2022-09-04] MEDS ORDERED: D10W 250 ML IV ONE (01:35)
--- NOTE | 2022-09-04 01:40 | EDPHYS ---
Physician Documentation [facility] Name: Frank López Age: 77 yrs Sex: Male : 1945 Arrival Date: 09/03/2022 Time: 23:40 Bed 19 Private MD: ED Physician Trevor Wallis HPI: 09/03 23:45 This 77 yrs old Male presents to ER via Unassigned with complaints of sob. rn 23:45 The patient has shortness of breath at rest, with light activity. Onset: The rn symptoms/episode began/occurred this morning. Duration: The symptoms are continuous. The patient's shortness of breath is aggravated by coughing, exertion, light activity, talking, walking, is alleviated by application of supplemental oxygen. Associated signs and symptoms: Pertinent positives: non-productive cough, Pertinent negatives: fever, hemoptysis, loss of consciousness. Severity of symptoms: At their worst the symptoms were moderate in the emergency department the symptoms are unchanged. The patient has experienced similar episodes in the past. The patient has not recently seen a physician. Pt reports sob that began this morning, + chills, + nonproductive cough, no fever. No chest pain. Did not go to dialysis today. Last dialysis Friday. No abd pain. Was found to be 74% on 2L home O2 and sitting in recliner. Given albuterol and atrovent with some improvement. Pt reports recently in hospital for COPD and pneumonia. . Historical: - Allergies: 23:47 Sulfa (Sulfonamide Antibiotics); as6 23:47 Codeine; as6 - PMHx: 23:47 Hypertension; High Cholesterol; Diabetes - NIDDM; COPD; Atrial fibrillation; Congestive as6 heart failure; - PSHx: 23:47 Nephrectomy; as6 - Immunization history:: Client reports receiving the Tony \T\ Tony single-dose vaccine. Pneumococcal vaccine is up to date, Flu vaccine is up to date. - Social history:: Smoking status: Patient denies any tobacco usage or history of. - Family history:: not pertinent. - Hospitalizations: : No recent hospitalization is reported. ROS: 23:45 Constitutional: + chills Eyes: Negative for injury, pain, redness, and discharge, Neck: rn Negative for injury, pain, and swelling, Cardiovascular: Negative for chest pain, palpitations Respiratory: + for wheezing Abdomen/GI: Negative for abdominal pain, nausea, vomiting, diarrhea, and constipation, Back: Negative for injury and pain, MS/Extremity: Negative for injury and deformity, Skin: Negative for injury, rash, and discoloration, Neuro: Negative for headache, weakness, numbness, tingling, and seizure. Exam: 23:45 Constitutional: This is a well developed, well nourished patient who is awake, alert, rn moderate tachypnea with audible wheezing from doorway Head/Face: Normocephalic, atraumatic. ENT: no stridor Cardiovascular: Bradycardic, regular Respiratory: + moderate tachypnea, + moderate resp distress with retractions, + wheezing bilaterally Abdomen/GI: Soft, non-tender Skin: Warm, dry MS/ Extremity: Pulses equal, no cyanosis. Neuro: Awake and alert, GCS 15 09/04 01:49 ECG was reviewed by the Attending Physician. rn Vital Signs: 09/03 23:47 BP 114 / 47; Pulse 50; Resp 19 S; Temp 99.3(O); Pulse Ox 99% on 15% Non-rebreather as6 mask; Weight 83.46 kg (R); Height 5 ft. 9 in. (175.26 cm) (R); Pain 8/10; 09/04 00:26 BP 104 / 93; Pulse 48; Resp 14; Pulse Ox 97% on 100% BiPAP; as6 00:53 BP 114 / 54; Pulse 44; Resp 20 S; Pulse Ox 99% on 40% BiPAP; as6 02:00 BP 136 / 63; Pulse 62; Resp 24 S; Pulse Ox 98% on 40% BiPAP; as6 02:41 BP 112 / 61; Pulse 51; Resp 21 S; Pulse Ox 100% on 40% BiPAP; as6 09/03 23:47 Body Mass Index 27.17 (83.46 kg, 175.26 cm) as6 MDM: 09/03 23:40 Patient medically screened. rn 09/04 01:33 Differential diagnosis: Anemia Bronchitis CHF exacerbation, Chronic Obstructive rn Pulmonary Disease Myocardial Infarction pneumonia, pulmonary edema, reactive airway disease, Sepsis. Data reviewed: vital signs, nurses notes, lab test result(s), EKG, radiologic studies, plain films, and as a result, I will admit patient. Independent interpretation of the following test(s) in the Emergency Department EKG: See my EKG interpretation above X-Ray: My interpretation is CXR shows interstitial edema with questionable pneumonia. Care significantly affected by the following chronic conditions: Diabetes, Hypertension, Chronic Obstructive Pulmonary Disease, ESRD. Counseling: I had a detailed discussion with the patient and/or guardian regarding: the historical points, exam findings, and any diagnostic results supporting the discharge/admit diagnosis, lab results, radiology results, the need for further work-up and treatment in the hospital. Response to treatment: the patient's symptoms have markedly improved after treatment, and as a result, I will admit patient. ED course: Pt with ESRD, missed last dialysis, reports chills and has low grade fever. CXR shows possible pneumonia superimposed on pulmonary edema. Markedly improved with COPD exacerbation treatment and on bipap. Elevated lactate. Blood cultures drawn and abx administered. Also hyperkalemic. Will admit to hospitalist service for further care. . 01:37 Management of patient was discussed with the following: Hospitalist: Discussed case rn with hospitalist.. External Records Reviewed: Inpatient record: Last inpatient record reviewed with hospitalist, apparently patient grew out MRSA and ESBL. Abx will be expanded during hospitalization. . 09/03 23:41 Order name: Blood Culture Adult (2) 09/03 23:41 Order name: CBC with Diff; Complete Time: 09/03 23:41 Order name: CMP; Complete Time: 09/03 23:41 Order name: Lactate w/ 2H reflex if indic.; Complete Time: 09/03 23:41 Order name: Protime (+inr); Complete Time: 09/03 23:41 Order name: Ptt, Activated; Complete Time: 09/03 23:41 Order name: Chest Single View XRAY 09/03 23:41 Order name: COVID-19/FLU A+B; Complete Time: 09/03 23:41 Order name: BNP; Complete Time: 09/04 00:32 Order name: Glucose, Ancillary Testing; Complete Time: 01:12 [facility] 09/04 01:37 Order name: Urine Microscopic Only 09/04 01:37 Order name: Urine Culture 09/04 02:23 Order name: Hemoglobin A1c [facility] 09/04 02:23 Order name: Hemoglobin A1c [facility] 09/03 23:41 Order name: EKG; Complete Time: 23:42 rn 09/03 23:41 Order name: Accucheck; Complete Time: 00:20 rn 09/03 23:41 Order name: Cardiac monitoring; Complete Time: 00:20 rn 09/03 23:41 Order name: EKG - Nurse/Tech; Complete Time: 00:20 rn 09/03 23:41 Order name: IV Saline Lock - Large Bore; Complete Time: 00:20 rn 09/03 23:41 Order name: Labs collected and sent; Complete Time: 00:20 rn 09/03 23:41 Order name: O2 Per Protocol; Complete Time: 00: rn 09/03 23:41 Order name: O2 Sat Monitoring; Complete Time: 00:20 rn 09/03 23:41 Order name: Vital Signs; Complete Time: 00:20 rn 09/03 23:41 Order name: BIPAP rn EC:49 Rate is 50 beats/min. Rhythm is regular. QRS [place] is Normal. QRS interval is normal. QT rn interval is normal. No Q waves. T waves are Normal. No ST changes noted. Clinical impression: Sinus bradycardia. Interpreted by me. Reviewed by me. Administered Medications: 01:48 Drug: D50W 50 ml Route: IVP; Site: left antecubital; 03:00 Follow up: Response: No adverse reaction as 01:51 Drug: Rocephin (cefTRIAXone) 1 grams Route: IV; Rate: calculated rate; Site: left wrist; 02:59 Follow up: Response: No adverse reaction; IV Status: Completed infusion; IV Intake: [id number] 01:51 Drug: Insulin Regular Human 5 units {Co-Signature: ha1 (Gertrudis Sahu RN).} Route: IVP; as6 Site: left antecubital; 03:00 Follow up: Response: No adverse reaction 02:03 Drug: Zithromax (azithromycin) 500 mg Route: IVPB; Infused Over: 1 hrs; Site: left as6 wrist; 02:59 Follow up: Response: No adverse reaction; IV Status: Completed infusion; IV Intake: as6 250ml 02:03 Drug: Calcium Gluconate 1 grams Route: IVPB; Infused Over: 60 mins; Site: left as6 antecubital; 03:00 Follow up: Response: No adverse reaction; IV Status: Completed infusion; IV Intake: as6 100ml Disposition: 01:37 Critical Care:. rn Disposition Summary: 09/04/22 01:40 Hospitalization Ordered Hospitalization Status: Inpatient Admission rn Provider: Chago Navarrete rn [facility] Condition: Stable rn Problem: new rn Symptoms: have improved rn Bed/Room Type: Standard rn Room Assignment: 418(09/04/22 02:40) cg Diagnosis - Severe sepsis without septic shock rn - Pneumonia, unspecified organism rn - Hypoxemia rn - COPD/ Chronic obstructive pulmonary disease with acute lower respiratory infection rn - Hyperkalemia rn Forms: - Medication Reconciliation Form rn - 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 Total time: 45 rn minutes Signatures: Dispatcher [employer] EDMS Trevor Wallis MD MD rn Garcia, Cindy, RN RN Sigifredo Hong RN RN as6 Gertrudis Sahu RN ha1 Corrections: (The following items were deleted from the chart) 02:40 01:40 rn cg
--- NOTE | 2022-09-04 01:40 | ER ---
Nurse's Notes [facility] Name: Frank López Age: 77 yrs Sex: Male : 1945 Arrival Date: 09/03/2022 Time: 23:40 Bed 19 Private MD: Diagnosis: Severe sepsis without septic shock;Pneumonia, unspecified organism;Hypoxemia;COPD/ Chronic obstructive pulmonary disease with acute lower respiratory infection;Hyperkalemia Presentation: 09/03 23:47 Chief complaint: EMS states: called out for shortness of breath. pt is typically on as6 home O2. on arrival to pt home he was 74% 2 LPM NC. EMS gave A\T\A breathing tx. Coronavirus screen: At this time, the client does not indicate any symptoms associated with coronavirus-19. Ebola Screen: No symptoms or risks identified at this time. Initial Sepsis Screen: Does the patient meet any 2 criteria? Yes Does the patient have a suspected source of infection? No. Patient's initial sepsis screen is negative. Risk Assessment: Do you want to hurt yourself or someone else? Patient reports no desire to harm self or others. Onset of symptoms was September 03, 2022. Care prior to arrival: Medication(s) given: Albuterol Neb Atrovent Neb. 23:47 Acuity: GAVI 2 as6 23:47 Method Of Arrival: EMS: [facility] as6 Historical: - Allergies: 23:47 Sulfa (Sulfonamide Antibiotics); as6 23:47 Codeine; as6 - PMHx: 23:47 Hypertension; High Cholesterol; Diabetes - NIDDM; COPD; Atrial fibrillation; Congestive as6 heart failure; - PSHx: 23:47 Nephrectomy; as6 - Immunization history:: Client reports receiving the Tony \T\ Tony single-dose vaccine. Pneumococcal vaccine is up to date, Flu vaccine is up to date. - Social history:: Smoking status: Patient denies any tobacco usage or history of. - Family history:: not pertinent. - Hospitalizations: : No recent hospitalization is reported. Screenin:50 [facility] ED Fall Risk Assessment (Adult) Score/Fall Risk Level 0 - 2 = Low Risk. Abuse as6 screen: Denies threats or abuse. Denies injuries from another. Nutritional screening: No deficits noted. Tuberculosis screening: No symptoms or risk factors identified. Assessment: 23:45 General: Appears distressed, Behavior is calm, cooperative. Pain: Complains of pain in as6 back. Neuro: Level of Consciousness is awake, alert, obeys commands, Oriented to person, place, time, situation. Cardiovascular: Reports shortness of breath, Capillary refill < 3 seconds Patient's skin is warm and dry. Respiratory: Reports shortness of breath Respiratory effort is labored, using tripod position, Respiratory pattern is regular, symmetrical. 09/04 00:26 Respiratory: Respiratory effort is using tripod position. as6 00:35 Respiratory: Patient placed on BiPAP: Inspiratory Pressure: 15 Expiratory (EPAP) as6 Pressure: 8 FiO2%: 40 Respiratory Rate: 18. 00:53 Respiratory: Respiratory effort is even, unlabored. as6 Vital Signs: 09/03 23:47 BP 114 / 47; Pulse 50; Resp 19 S; Temp 99.3(O); Pulse Ox 99% on 15% Non-rebreather as6 mask; Weight 83.46 kg (R); Height 5 ft. 9 in. (175.26 cm) (R); Pain 8/10; 09/04 00:26 BP 104 / 93; Pulse 48; Resp 14; Pulse Ox 97% on 100% BiPAP; as6 00:53 BP 114 / 54; Pulse 44; Resp 20 S; Pulse Ox 99% on 40% BiPAP; as6 02:00 BP 136 / 63; Pulse 62; Resp 24 S; Pulse Ox 98% on 40% BiPAP; as6 02:41 BP 112 / 61; Pulse 51; Resp 21 S; Pulse Ox 100% on 40% BiPAP; as6 09/03 23:47 Body Mass Index 27.17 (83.46 kg, 175.26 cm) as6 ED Course: 09/03 23:40 Patient arrived in ED. ja2 23:40 Trevor Wallis MD is Attending Physician. rn 23:46 Sigifredo Yap RN is Primary Nurse. as6 23:46 Arm band placed on. as6 23:50 Triage completed. as6 23:50 Placed in gown. Bed in low position. Call light in reach. Side rails up X2. Client as6 placed on continuous cardiac and pulse oximetry monitoring. NIBP monitoring applied. Warm blanket given. 09/04 00:06 Chest Single View XRAY In Process Unspecified. EDMS 00:10 Inserted saline lock: 20 gauge in left antecubital area, using aseptic technique. Blood as6 collected. 00:20 COVID-19/FLU A+B Sent. as6 00:20 BNP Sent. as6 00:20 Blood Culture Adult (2) Sent. as6 00:21 CBC with Diff Sent. as6 00:21 CMP Sent. as6 00:21 Lactate w/ 2H reflex if indic. Sent. as6 00:21 Protime (+inr) Sent. as6 00:21 Ptt, Activated Sent. as6 01:39 Chago Navarrete MD is Hospitalizing Provider. rn 01:52 Inserted saline lock: 22 gauge in left wrist, using aseptic technique. as6 01:52 No provider procedures requiring assistance completed. Patient admitted, IV remains in as6 place. Administered Medications: 01:48 Drug: D50W 50 ml Route: IVP; Site: left antecubital; as6 03:00 Follow up: Response: No adverse reaction as6 01:51 Drug: Rocephin (cefTRIAXone) 1 grams Route: IV; Rate: calculated rate; Site: left wrist;as6 02:59 Follow up: Response: No adverse reaction; IV Status: Completed infusion; IV Intake: 38sawf2 01:51 Drug: Insulin Regular Human 5 units {Co-Signature: ha1 (Gertrudis Sahu RN).} Route: IVP; as6 Site: left antecubital; 03:00 Follow up: Response: No adverse reaction as6 02:03 Drug: Zithromax (azithromycin) 500 mg Route: IVPB; Infused Over: 1 hrs; Site: left as6 wrist; 02:59 Follow up: Response: No adverse reaction; IV Status: Completed infusion; IV Intake: as6 250ml 02:03 Drug: Calcium Gluconate 1 grams Route: IVPB; Infused Over: 60 mins; Site: left as6 antecubital; 03:00 Follow up: Response: No adverse reaction; IV Status: Completed infusion; IV Intake: as6 100ml Medication: 01:52 VIS not applicable for this client. as6 Intake: 02:59 IV: 50ml; Total: 50ml. as6 02:59 IV: 250ml; Total: 300ml. as6 03:00 IV: 100ml; Total: 400ml. as6 Outcome: 01:40 Decision to Hospitalize by Provider. rn 01:53 Admitted to ER Hold. Please see [facility] for further documentation. as6 01:53 Condition: stable 01:53 Instructed on the need for admit. 03:01 Patient left the ED. as6 Signatures: Dispatcher [employer] EDTrevor Starks MD MD rn Alexander, Jessica ja2 Slawson, Ashby, RN RN as6 Gertrudis Sahu RN 1
--- NOTE | 2022-09-04 02:22 | P.HP ---
Certification for Inpatient Patient admitted to: Inpatient With expected LOS: >2 Midnights Patient will require the following post-hospital care: None Practitioner: I am a practitioner with admitting privileges, knowledge of patient current condition, hospital course, and medical plan of care. 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 He did not go to dialysis today. EMS reports he was 74% on 2L when they arrived. They gave him an albuterol/atrovent breathing treatment. He was placed on bipap upon arrival. His labs are significant for WBC 13.3, hgb 9.5, potassium 6, BUN 64, creatinine 5.4, alk phos 120, BNP 78737, lactate 2.1, covid/flu negative. Chest xray showed " Prominent interstitial markings suggestive of interstitial edema, Hazy bibasilar opacities, Blunting of the costophrenic angles suggestive of bilateral pleural effusions, Left hemidiaphragm is obscured which can be seen with left pleural effusion, as well as left lower lobe consolidation or atelectasis." He received treatment for hyperkalemia as well as azithromycin and ceftriaxone for suspected pneumonia. Patient is admitted for further management. Allergies codeine Allergy (Verified 08/08/21 02:36) Shortness of breath Sulfa (Sulfonamide Antibiotics) Allergy (Verified 08/08/21 02:36) Shortness of breath Home medications list reviewed: Yes Home Medications: Atorvastatin Calcium 40 mg PO BEDTIME 08/02/18 Finasteride [Proscar*] 5 mg PO DAILY 08/02/18 Gabapentin 300 mg PO BEDTIME 08/02/18 Paroxetine HCl [Paxil] 20 mg PO DAILY 08/02/18 allopurinoL [Zyloprim*] 100 mg PO DAILY 08/03/18 Budesonide/Formoterol Fumarate [Symbicort 160-4.5 Mcg Inhaler] 2 puff IH BID #60 hfa.aer.ad 08/06/18 Cholecalciferol (Vitamin D3) [Vitamin D3] 25 mcg PO DAILY 08/08/21 Cyanocobalamin [Vitamin B-12*] 2,000 mcg PO DAILY 08/08/21 Ipratropium/Albuterol Sulfate [Combivent Respimat 20-100 Mcg] 1 puff IH Q6H PRN 08/08/21 Nifedipine [Procardia Xl] 60 mg PO DAILY 08/08/21 Apixaban [Eliquis *] 2.5 mg PO BID #60 tablet 08/11/21 Furosemide [Lasix] 40 mg PO DAILY #30 tablet 08/11/21 Levalbuterol HCl [Xopenex] 1.25 mg NEB Q6H PRN #60 ml 08/11/21 Metoprolol Tartrate [Lopressor*] 50 mg PO BID 6AM 6PM #60 tab 08/11/21 Na Bicarb Tab [Sodium Bicarb 325 MG Tab*] 325 mg PO BID #60 tab 08/11/21 Tamsulosin [Flomax*] 0.4 mg PO BID #60 cap 08/11/21 predniSONE [Prednisone*] 20 mg PO BID #20 tab 08/11/21 - Past Medical/Surgical History Diabetic: Yes -: COPD -: DM II with polyneuropathy -: ESRD on HD -: HTN -: CAD s/p PCI -: HLD -: PAD/ AAA -: Diastolic CHF -: Anemia/ Iron Deficiency -: monoclonal gammopathy -: history of bladder cancer -: synovial chondromatosis -: Left Nephrectomy r/t 1994 -: Peripheral vascular disease Psychosocial/ Personal History: Patient is . - Family History Mother -: Heart disease, Lung disease - Social History Smoking Status: Former smoker Alcohol use: No CD- Drugs: No Caffeine use: Yes Place of Residence: Home Review of Systems General: Chills Respiratory: Cough, Shortness of Breath, Wheezing Physical Examination - Vital Signs Temperature: 99.3 F Blood Pressure: 112/61 Pulse: 51 Respirations: 21 Pulse Ox (%): 100 (bipap) - Physical Exam General: Alert, In no apparent distress HEENT: Atraumatic, PERRLA, EOMI, Sclerae nonicteric Neck: Supple, 2+ carotid pulse no bruit Respiratory: Expiratory wheezes Cardiovascular: Regular rate/rhythm, Normal S1 S2 Gastrointestinal: Normal bowel sounds, No tenderness Musculoskeletal: No tenderness Integumentary: No rashes Neurological: Normal speech, Normal strength at 5/5 x4 extr, Normal tone, Normal affect - Studies Laboratory Data (last 24 hrs) 09/04/22 00:15: PT 11.7, INR 1.06, APTT 34.8 09/04/22 00:15: Sodium 134 L, Potassium 6.0 H*, BUN 64 H, Creatinine 5.41 H*, Glucose 148 H, Total Bilirubin 0.4, AST 13 L, ALT 19, Alkaline Phosphatase 120 H 09/04/22 00:15: WBC 13.30 H, Hgb 9.5 L, Hct 29.4 L, Plt Count 256 Assessment and Plan - Problems (Diagnosis) (1) Acute respiratory failure with hypoxia Current Visit: Yes Status: Acute (2) COPD exacerbation Current Visit: Yes Status: Acute (3) Anemia Current Visit: Yes Status: Chronic Qualifiers: Anemia type: due to chronic kidney disease Chronic kidney disease stage: on chronic dialysis Qualified Code(s): N18.6 - End stage renal disease; D63.1 - Anemia in chronic kidney disease; Z99.2 - Dependence on renal dialysis (4) Pneumonia Current Visit: Yes Status: Acute Qualifiers: Pneumonia type: due to unspecified organism Laterality: bilateral Lung location: lower lobe of lung Qualified Code(s): J18.9 - Pneumonia, unspecified organism (5) Afib Current Visit: Yes Status: Chronic Qualifiers: Atrial fibrillation type: paroxysmal Qualified Code(s): I48.0 - Paroxysmal atrial fibrillation (6) CAD (coronary artery disease) Current Visit: Yes Status: Chronic Qualifiers: Coronary Disease-Associated Artery/Lesion type: [place] artery [place] vs. transplanted heart: [place] heart Associated angina: without angina Qualified Code(s): I25.10 - Atherosclerotic heart disease of [place] coronary artery without angina pectoris (7) Diabetes mellitus Current Visit: Yes Status: Chronic Qualifiers: Diabetes mellitus type: type 2 Diabetes mellitus long distance operator insulin use: without long distance operator use Diabetes mellitus complication status: with hyperglycemia Qualified Code(s): E11.65 - Type 2 diabetes mellitus with hyperglycemia (8) Dyslipidemia Current Visit: Yes Status: Chronic (9) HTN (hypertension) Current Visit: Yes Status: Chronic Qualifiers: Hypertension type: primary hypertension Qualified Code(s): I10 - Essential (primary) hypertension (10) Sepsis Current Visit: Yes Status: Acute Qualifiers: Sepsis type: sepsis due to unspecified organism Sepsis acute organ dysfunction status: with acute organ dysfunction Severe sepsis acute organ dysfunction type: acute respiratory failure Acute respiratory failure type: with hypoxia Severe sepsis shock status: without septic shock Qualified Code(s): A41.9 - Sepsis, unspecified organism; R65.20 - Severe sepsis without septic shock; J96.01 - Acute respiratory failure with hypoxia (11) Hyperkalemia Current Visit: Yes Status: Acute - Plan Severe sepsis without septic shock secondary to bibasilar pneumonia superimposed on end stage COPD: Continue bipap, wean to NC when tolerating. Received azithromycin and ceftriaxone in ED. Will initiate zosyn as previous sputum culture 1 month ago grew ESBL ecoli. Blood cultures obtained. New sputum culture ordered. BP stable. initial lactate 2.1. repeat pending. Pulm consulted. ESRD on HD with hyperkalemia: Missed HD today. Nephrology consulted. Potassium elevated at 6. No EKG changes. Patient received calcium gluconate, insulin, and D50 in the ED. Monitor patient on telemetry. No chest pain. Chronic diastolic CHF with bilateral pleural effusions: Patient takes 40 mg lasix PO daily. BP has been soft. Will try lasix when BP can tolerate. Chronic anemia secondary to CKD/ESRD: appears stable per chart review. Continue to monitor and transfuse if hemoglobin < 7. Type 2 Diabetes, Non-Insulin Dependent: ACHS accu checks with moderate sliding scale. A1c ordered. continue home medications. Paroxsymal Atrial Fibrillation: not currently in afib. continue home eliquis. CAD/Hypertension/Hyperlipidemia: Reconcile and continue home medications. History of MRSA UTI: patient still making urine. he is not complaining of any urinary symptoms at this time. UA pending. Discharge Plan: Home Plan to discharge in: Greater than 2 days - Advance Directives Does patient have a Living Will: No Does patient have a Durable POA for Healthcare: No - Code Status/Comfort Care Code Status Assessed: Yes Code Status: Full Code Physician Review: Patient Assessed, Agree with Above Assessment and Plan Critical Care: No Time Spent Managing Pts Care (In Minutes): 50
[2022-09-04] MEDS ORDERED: ONDANSETRON 4 MG/2 ML VIAL IV PRN (02:56)
[2022-09-04] MEDS ORDERED: IPRATROPIUM BROM 0.5MG/2.5ML NEB PRN (02:56)
[2022-09-04] MEDS ORDERED: ALBUTEROL 2.5 MG/3 ML NEB SOL NEB PRN ×2 (02:56→14:00)
[2022-09-04] MEDS ORDERED: ACETAMINOPHEN 500 MG TAB PO PRN (02:56)
[2022-09-04 04:43] LABS: Potassium 5.6 mmol/L (3.5-5.1)
[2022-09-04] MEDS: INSULIN -REGULAR HUMAN 50 UNIT/0.5 ML ML SQ SCH ×4 (07:30→21:00)
[2022-09-04] MEDS: APIXABAN 2.5 MG TABLET PO SCH ×2 (08:21→21:43)
--- NOTE | 2022-09-04 08:28 | P.CNS ---
Date of Consult: 09/04/22 Reason for Consult: Shock Chief Complaint: Pneumonia, Severe Sepsis, ESRD History of Present Illness: Patient is 77 years of age end-stage renal disease metabolic syndrome multiple other medical problems presented to the emergency room shortness of breath chil ls coughing This morning patient was unresponsive on BiPAP hypotensive bradycardic and was transferred to the ICU P Allergies codeine Allergy (Verified 08/08/21 02:36) Shortness of breath Sulfa (Sulfonamide Antibiotics) Allergy (Verified 08/08/21 02:36) Shortness of breath Home Medications: Atorvastatin Calcium 40 mg PO BEDTIME 08/02/18 Finasteride [Proscar*] 5 mg PO DAILY 08/02/18 Gabapentin 300 mg PO BEDTIME 08/02/18 Paroxetine HCl [Paxil] 20 mg PO DAILY 08/02/18 allopurinoL [Zyloprim*] 100 mg PO DAILY 08/03/18 Budesonide/Formoterol Fumarate [Symbicort 160-4.5 Mcg Inhaler] 2 puff IH BID #60 hfa.aer.ad 08/06/18 Cholecalciferol (Vitamin D3) [Vitamin D3] 25 mcg PO DAILY 08/08/21 Cyanocobalamin [Vitamin B-12*] 2,000 mcg PO DAILY 08/08/21 Ipratropium/Albuterol Sulfate [Combivent Respimat 20-100 Mcg] 1 puff IH Q6H PRN 08/08/21 Nifedipine [Procardia Xl] 60 mg PO DAILY 08/08/21 Apixaban [Eliquis *] 2.5 mg PO BID #60 tablet 08/11/21 Furosemide [Lasix] 40 mg PO DAILY #30 tablet 08/11/21 Levalbuterol HCl [Xopenex] 1.25 mg NEB Q6H PRN #60 ml 08/11/21 Metoprolol Tartrate [Lopressor*] 50 mg PO BID 6AM 6PM #60 tab 08/11/21 Na Bicarb Tab [Sodium Bicarb 325 MG Tab*] 325 mg PO BID #60 tab 08/11/21 Tamsulosin [Flomax*] 0.4 mg PO BID #60 cap 08/11/21 predniSONE [Prednisone*] 20 mg PO BID #20 tab 08/11/21 - Past Medical/Surgical History Diabetic: Yes -: COPD -: DM II with polyneuropathy -: ESRD on HD -: HTN -: CAD s/p PCI -: HLD -: PAD/ AAA -: Diastolic CHF -: Anemia/ Iron Deficiency -: monoclonal gammopathy -: history of bladder cancer -: synovial chondromatosis -: Left Nephrectomy r/t 1994 -: Peripheral vascular disease Psychosocial/ Personal History: Patient is . - Family History Mother Medical History: Heart disease, Lung disease - Social History Smoking Status: Current every day smoker Alcohol use: No CD- Drugs: No Caffeine use: Yes Place of Residence: Home Review of Systems is unable to be obtained Physical Examination Temp Pulse Resp BP Pulse Ox 98.3 F 50 20 100/45 L 98 09/04/22 04:00 09/04/22 04:00 09/04/22 04:00 09/04/22 04:00 09/04/22 04:00 General: Unresponsive Respiratory: Clear to auscultation bilaterally, Diminished Cardiovascular: No edema, Regular rate/rhythm, Normal S1 S2 Gastrointestinal: Normal bowel sounds, Soft and benign Musculoskeletal: No clubbing Laboratory Data (last 24 hrs) 09/04/22 00:15: PT 11.7, INR 1.06, APTT 34.8 09/04/22 00:15: Sodium 134 L, Potassium 6.0 H*, BUN 64 H, Creatinine 5.41 H*, Gl ucose 148 H, Total Bilirubin 0.4, AST 13 L, ALT 19, Alkaline Phosphatase 120 H 09/04/22 00:15: WBC 13.30 H, Hgb 9.5 L, Hct 29.4 L, Plt Count 256 - Problems (1) Acute respiratory failure with hypoxia Current Visit: Yes Status: Acute Plan: Patient is 77 years of age admitted with respiratory failure end-stage renal disease multiple medical problem White count is mildly elevated chest x-ray shows some interstitial changes patient is on Zosyn add vancomycin lactic acid elevated 1 dose 1 dose of dexamethasone serum cortisol level TSH level may need Levophed support
[2022-09-04] MEDS ORDERED: NA CHLORIDE 0.9% 500 ML IV ONE (08:30)
[2022-09-04] MEDS ORDERED: PIPER TAZO 3.375 GM in NA CHLORIDE 0.9% 100 ML IV SCH ×2 (09:00→21:00)
[2022-09-04] MEDS ORDERED: SODIUM BICARB 50 MEQ/50ML VIAL IV ONE (09:00)
[2022-09-04] MEDS ORDERED: ALBUMIN HUMAN 25% 100 ML IV ONE ×3 (09:00→13:00)
--- NOTE | 2022-09-04 09:36 | P.CNS ---
Date of Consult: 09/04/22 Reason for Consult: Renal failure, hyperkalemia Requesting Physician: Chago Navarrete Chief Complaint: Pneumonia, Severe Sepsis, ESRD History of Present Illness: Patient is a 77-year-old male with a past medical history of advanced CKD with initiation of HD for ARF on CKD during recent admission here > 1 mo ago, moderate COPD on home O2 with chronic dyspnea, paroxysmal atrial fibrillation, hx of reporrted CAD s/p PCI, chronic diastolic CHF, PAD, monoclonal gammopathy, and other co morbidities who missed regular OP HD yesterday due to malaise, dyspnea, cough and other. On presentation, pt was found to have abnormal labs and concerning CXR. This AM, pt is found on BIPAP, his BP and HR were low earlier and sodium bicarb IV push and fluid bolus was ordered by the primary team and pt was being transferred to the ICU. . Allergies codeine Allergy (Verified 08/08/21 02:36) Shortness of breath Sulfa (Sulfonamide Antibiotics) Allergy (Verified 08/08/21 02:36) Shortness of breath Home Medications: Atorvastatin Calcium 40 mg PO BEDTIME 08/02/18 Finasteride [Proscar*] 5 mg PO DAILY 08/02/18 Gabapentin 300 mg PO BEDTIME 08/02/18 Paroxetine HCl [Paxil] 20 mg PO DAILY 08/02/18 allopurinoL [Zyloprim*] 100 mg PO DAILY 08/03/18 Budesonide/Formoterol Fumarate [Symbicort 160-4.5 Mcg Inhaler] 2 puff IH BID #60 hfa.aer.ad 08/06/18 Cholecalciferol (Vitamin D3) [Vitamin D3] 25 mcg PO DAILY 08/08/21 Cyanocobalamin [Vitamin B-12*] 2,000 mcg PO DAILY 08/08/21 Ipratropium/Albuterol Sulfate [Combivent Respimat 20-100 Mcg] 1 puff IH Q6H PRN 08/08/21 Nifedipine [Procardia Xl] 60 mg PO DAILY 08/08/21 Apixaban [Eliquis *] 2.5 mg PO BID #60 tablet 08/11/21 Furosemide [Lasix] 40 mg PO DAILY #30 tablet 08/11/21 Levalbuterol HCl [Xopenex] 1.25 mg NEB Q6H PRN #60 ml 08/11/21 Metoprolol Tartrate [Lopressor*] 50 mg PO BID 6AM 6PM #60 tab 08/11/21 Na Bicarb Tab [Sodium Bicarb 325 MG Tab*] 325 mg PO BID #60 tab 08/11/21 Tamsulosin [Flomax*] 0.4 mg PO BID #60 cap 08/11/21 predniSONE [Prednisone*] 20 mg PO BID #20 tab 08/11/21 - Past Medical/Surgical History Diabetic: Yes -: COPD -: DM II with polyneuropathy -: ARF on CKD on HD for > 1 mo -: HTN -: CAD s/p PCI -: HLD -: PAD/ AAA -: Diastolic CHF -: Anemia/ Iron Deficiency -: monoclonal gammopathy -: history of bladder cancer -: synovial chondromatosis -: Left Nephrectomy r/t 1994 -: Peripheral vascular disease Psychosocial/ Personal History: Patient is . - Family History Mother Medical History: Heart disease, Lung disease - Social History Smoking Status: Current every day smoker Alcohol use: No CD- Drugs: No Caffeine use: Yes Place of Residence: Home Review of Systems is unable to be obtained Physical Examination Temp Pulse Resp BP Pulse Ox 98.3 F 50 20 100/45 L 98 09/04/22 04:00 09/04/22 04:00 09/04/22 04:00 09/04/22 04:00 09/04/22 04:00 General: Other (Appears ill, pale) HEENT: Atraumatic, Normocephalic, Other (BIPAP mask present), Sclerae nonicteric Neck: Other (Rt IJ TDC, no exit site drainage noted) Respiratory: Other (Coarse BS b/l, mildly tachypnec) Cardiovascular: Other (Bradycardic, mostly regular) Gastrointestinal: Other (Soft, ND, NT) Musculoskeletal: No swelling, No erythema, No tenderness Integumentary: No rashes Neurological: Other (Awakens easily, responds briefly, moves ext spont) Laboratory Data (last 24 hrs) 09/04/22 00:15: PT 11.7, INR 1.06, APTT 34.8 09/04/22 00:15: Sodium 134 L, Potassium 6.0 H*, BUN 64 H, Creatinine 5.41 H*, Glucose 148 H, Total Bilirubin 0.4, AST 13 L, ALT 19, Alkaline Phosphatase 120 H 09/04/22 00:15: WBC 13.30 H, Hgb 9.5 L, Hct 29.4 L, Plt Count 256 Conclusions/Impression: A/P) 1. Recent Stage III ARF on underlying CKD IV on RIVER TESTER 2. Acquired absence of kidney 3. Acute hypoxic respiratory insufficiency 4. Acute pulmonary edema suspected +/- PNA, unspecified organism 5. Hypotension, unspecified 6. Bradycardia unspecified 7. Hyperkalemia 8. Metab acidosis 9. Anemia due to chronic illnesses Stage III ARF per BARBRA def as Cr level > 4 mg/dl in Jul 12 to multifactorial etiology on underling CKD IV with solitary kidney state (Rt kidney, 9 cm with remote Lt nephrectomy for urothelial carcinoma or related). RIVER TESTER initiated and pt has been dialysis dependent for > 1 mo c/w loss of function. Will plan for HD this AM for metab clearance and UF as tolerated if he remains hemodynamically stable. Will plan to dialyze in the ICU on low dose pressor support. Pt will benefit from central line access other than his TDC, will approve PICC line given his critical status. Acute hypoxic resp insufficiency with probable acute pulm edema +/- PNA (unspecified organism) on underlying chronic lung disease due to COPD +/- other -Check ABG, cont NIPPV, UF on dialysis if BP allows. Abx per primary team, dose renally Hypotension, unspecified -F/u peripheral BCx, check BCx x 1 from his TDC, will start Levophed support if needed. Bradycardia unspecified. Parox Afib. Diastolic CHF, chronic. MR, non rheumatic -Will monitor HR closely, shady if pressor support employed. Discussed case with Dr. Navarrete, he will get Cardiology involved. Tung La MD, BRISSA
[2022-09-04] MEDS ORDERED: NOREPINEPHRINE BITARTRATE/D5W 4 MG/250 ML BAG IV SCH (10:00)
[2022-09-04 12:43] LABS: Arterial Blood Carboxyhemoglob 1.7 % (0-1.5); Blood Gas Oxyhemoglobin 89.1 % (94-97); Blood O2 Saturation 91.9 % (92-98.5)
--- NOTE | 2022-09-04 12:53 | RAD REPORT ---
EXAM DESCRIPTION: RAD - Chest Single View - 09/04/2022 12:03 am CLINICAL HISTORY: The patient is 77 years old and is Male; Dyspnea TECHNIQUE: Frontal view of the chest. COMPARISON: No relevant prior studies available. FINDINGS: Lungs: Prominent interstitial markings suggestive of interstitial edema. Hazy bibasilar opacities. Pleural space: Blunting of the costophrenic angles suggestive of bilateral pleural effusions. Left hemidiaphragm is obscured which can be seen with left pleural effusion, as well as left lower lobe consolidation or atelectasis. No pneumothorax. Heart: Unremarkable. Mediastinum: Unremarkable. Bones/joints: Degenerative changes involving the glenohumeral and acromioclavicular joints. Disc space narrowing with degenerative endplate changes in the spine. Vasculature: Aortic calcification. IMPRESSION: 1. Prominent interstitial markings suggestive of interstitial edema. 2. Hazy bibasilar opacities. 3. Blunting of the costophrenic angles suggestive of bilateral pleural effusions. 4. Left hemidiaphragm is obscured which can be seen with left pleural effusion, as well as left low er lobe consolidation or atelectasis. Electronically signed by: Babak Martin MD 09/04/2022 12:18 AM [employer] Due to temporary technical issues with the PACS/Fluency reporting system, reports are being signed by the in house radiologists without review as a courtesy to insure prompt reporting. The interpreting radiologist is fully responsible for the content of the report.
[2022-09-04] MEDS ORDERED: VANCOMYCIN 2 GM in NA CHLORIDE 0.9% 500 ML IVPB ONE (13:00)
[2022-09-04] MEDS ORDERED: dexAMETHasone 10 MG/ML VIAL IV ONE (13:00)
[2022-09-04 13:43] LABS: Thyroid Stimulating Hormone 4.54 uIU/mL (0.358-3.740)
[2022-09-04] MEDS: FENTANYL CITR 100 MCG/2 ML IV PRN ×2 (13:50→21:43)
--- NOTE | 2022-09-04 13:53 | RAD REPORT ---
EXAM DESCRIPTION: RAD - Hip Left 2 View - 09/04/2022 1:43 pm CLINICAL HISTORY: s/p fall, left hip pain, r/o fracture COMPARISON: No comparisons FINDINGS: There is significant osteopenia. Moderate left hip arthritic changes. No gross fracture se en, however recommend CT or MR imaging of the left hip due to high degree of osteopenia.
--- NOTE | 2022-09-04 22:35 | RAD REPORT ---
EXAM DESCRIPTION: CT - Hip Left Wo Con - 09/04/2022 10:23 pm CLINICAL HISTORY: rule out fracture Fall, trauma, left hip pain COMPARISON: Hip Left 2 View dated 09/04/2022 FINDINGS: Moderate osteoarthritis affects the left hip. No evidence acute fracture or dislocation. N o AVN findings. Small left hip joint effusion. Aortic atherosclerosis noted. IMPRESSION: Moderate degenerative changes left hip without acute fracture seen. All CT scans are performed using dose optimization technique as appropriate and may include automated exposure control or mA/KV adjustment according to patient size.
--- NOTE | 2022-09-05 00:20 | P.PN ---
Subjective Date of Service: 09/04/22 Notified by nurses this morning the patient was bradycardic and hypertensive. A evaluated the patient and patient was acidotic and hyperkalemic. His hyperkalemia was not that significant. However, with his advanced COPD I feel he may be significantly acidotic so I gave patient an amp of bicarb. Patient's blood pressure and heart rate came up. We talked to Nephrology and plan is to dialyze. Will move to ICU. Started on dopamine or Levophed. Spoke with family and patient is taking steroid inhaler but does not use prednisone daily. I am not sure this is adrenal insufficiency. May need to check cortisol level as well. Appreciate Pulmonary and Nephrology input. Review of Systems 10-point ROS is otherwise unremarkable Physical Examination - Vital Signs Temperature: 96.9 F Blood Pressure: 133/67 Pulse: 93 Respirations: 20 Pulse Ox (%): 97 - Physical Exam General: Alert, In no apparent distress, Oriented x2 Respiratory: Expiratory wheezes ( the 2 empathy) Cardiovascular: Regular rate/rhythm, Normal S1 S2, No murmurs Gastrointestinal: Normal bowel sounds, Soft and benign, Non-distended, No tenderness Musculoskeletal: No clubbing, No swelling, No tenderness Neurological: Sensation intact, Cranial nerves 3-12 intact - Studies Laboratory Data (last 24 hrs) 09/04/22 00:15: PT 11.7, INR 1.06, APTT 34.8 09/04/22 00:15: Sodium 134 L, Potassium 6.0 H*, BUN 64 H, Creatinine 5.41 H*, Glucose 148 H, Total Bilirubin 0.4, AST 13 L, ALT 19, Alkaline Phosphatase 120 H 09/04/22 00:15: WBC 13.30 H, Hgb 9.5 L, Hct 29.4 L, Plt Count 256 Medications List Reviewed: Yes Assessment & Plan - Problems (Diagnosis) (1) Bradycardia Current Visit: Yes Status: Acute (2) Hypotensive episode Current Visit: Yes Status: Acute (3) Metabolic acidosis Current Visit: Yes Status: Acute (4) Hyperkalemia Current Visit: Yes Status: Acute (5) Acute respiratory failure with hypoxia Current Visit: Yes Status: Acute (6) Afib Current Visit: Yes Status: Chronic Qualifiers: Atrial fibrillation type: paroxysmal Qualified Code(s): I48.0 - Paroxysmal atrial fibrillation (7) Anemia Current Visit: Yes Status: Chronic Qualifiers: Anemia type: due to chronic kidney disease Chronic kidney disease stage: on chronic dialysis Qualified Code(s): N18.6 - End stage renal disease; D63.1 - Anemia in chronic kidney disease; Z99.2 - Dependence on renal dialysis (8) CAD (coronary artery disease) Current Visit: Yes Status: Chronic Qualifiers: Coronary Disease-Associated Artery/Lesion type: [place] artery [place] vs. transplanted heart: [place] heart Associated angina: without angina Qualified Code(s): I25.10 - Atherosclerotic heart disease of [place] coronary artery without angina pectoris (9) Diabetes mellitus Current Visit: Yes Status: Chronic Qualifiers: Diabetes mellitus type: type 2 Diabetes mellitus mcc insulin use: without oil heaterman use Diabetes mellitus complication status: with hyperglycemia Qualified Code(s): E11.65 - Type 2 diabetes mellitus with hyperglycemia (10) Dyslipidemia Current Visit: Yes Status: Chronic (11) HTN (hypertension) Current Visit: Yes Status: Chronic Qualifiers: Hypertension type: primary hypertension Qualified Code(s): I10 - Essential (primary) hypertension (12) ESRD (end stage renal disease) Current Visit: Yes Status: Acute - Plan Plan: 1. Plan to hemodialyze the patient 2. Appreciate Nephrology and Pulmonary consultation 3. Repeat labs 4. Monitor hemodynamics in ICU 5. Wean off O2 6. Echocardiogram 7. Hold off on beta-frank therapy 8. Gi/DVT prophylaxis Discharge Plan: Home Plan to discharge in: Greater than 2 days - Advance Directives Does patient have a Living Will: No Does patient have a Durable POA for Healthcare: No - Code Status/Comfort Care Code Status: Full Code Physician Review: Patient Assessed, Agree with Above Assessment and Plan Critical Care: No Time Spent Managing PTS Care (In Minutes): 35
--- NOTE | 2022-09-05 00:30 | P.PN ---
Date of Service: 09/05/22 Subjective Patient is clinically doing better. Status post dialysis. We will get back on his dialysis sessions as scheduled. Patient is improving and anticipate discharge over the next 24 to 48 hours. Review of Systems 10-point ROS is otherwise unremarkable Physical Examination - Vital Signs Reviewed - Physical Exam General: Alert, In no apparent distress, Oriented x3 Respiratory: Clear bilaterally Cardiovascular: Regular rate/rhythm, Normal S1 S2, No murmurs Gastrointestinal: Normal bowel sounds, Soft and benign, Non-distended, No tenderness Musculoskeletal: No clubbing, No swelling, No tenderness Neurological: No focal deficits Assessment & Plan - Problems (Diagnosis) (1) Bradycardia Current Visit: Yes Status: Acute (2) Hypotensive episode Current Visit: Yes Status: Acute (3) Metabolic acidosis Current Visit: Yes Status: Acute (4) Hyperkalemia Current Visit: Yes Status: Acute (5) Acute respiratory failure with hypoxia Current Visit: Yes Status: Acute (6) Afib Current Visit: Yes Status: Chronic Qualifiers: Atrial fibrillation type: paroxysmal Qualified Code(s): I48.0 - Paroxysmal atrial fibrillation (7) Anemia Current Visit: Yes Status: Chronic Qualifiers: Anemia type: due to chronic kidney disease Chronic kidney disease stage: on chronic dialysis Qualified Code(s): N18.6 - End stage renal disease; D63.1 - Anemia in chronic kidney disease; Z99.2 - Dependence on renal dialysis (8) CAD (coronary artery disease) Current Visit: Yes Status: Chronic Qualifiers: Coronary Disease-Associated Artery/Lesion type: [place] artery [place] vs. transplanted heart: [place] heart Associated angina: without angina Qualified Code(s): I25.10 - Atherosclerotic heart disease of [place] coronary artery without angina pectoris (9) Diabetes mellitus Current Visit: Yes Status: Chronic Qualifiers: Diabetes mellitus type: type 2 Diabetes mellitus watermaster insulin use: without watermaster use Diabetes mellitus complication status: with hyperglycemia Qualified Code(s): E11.65 - Type 2 diabetes mellitus with hyperglycemia (10) Dyslipidemia Current Visit: Yes Status: Chronic (11) HTN (hypertension) Current Visit: Yes Status: Chronic Qualifiers: Hypertension type: primary hypertension Qualified Code(s): I10 - Essential (primary) hypertension (12) ESRD (end stage renal disease) Current Visit: Yes Status: Acute - Plan Continue with plan of care as mentioned below: 1. HD per Nephrology 2. Appreciate Pulmonary input 3. Hemodynamics improved as acidosis has been corrected; Cardiology consulted; most likely related to acidosis and hyperkalemia 4. Monitor hemodynamics in ICU 5. Wean off O2 6. Echocardiogram pending 7. Anticipate discharge over the next 24 to 48 hours 8. GI/DVT prophylaxis
[2022-09-05 04:55] LABS: Absolute Lymphocytes (CBC) 0.5 K/uL (0.7-4.9); Hematocrit 23.5 % (39.6-49.0); Lymphocytes % 7.2 % (15.3-44.8); MCV 90.4 fL (80-100); MPV 7.6 fL (7.6-11.3)
[2022-09-05] MEDS: FENTANYL CITR 100 MCG/2 ML IV PRN ×4 (04:55→20:54)
[2022-09-05 05:08] LABS: Albumin 2.5 g/dL (3.4-5.0); Bilirubin Total 0.4 mg/dL (0.2-1.0); Magnesium 2.3 mg/dL (1.6-2.4); Phosphorus 5.7 mg/dL (2.5-4.9); Potassium 4.5 mmol/L (3.5-5.1); Protein, Total 6.6 g/dL (6.4-8.2)
[2022-09-05] MEDS: INSULIN -REGULAR HUMAN 50 UNIT/0.5 ML ML SQ SCH ×4 (07:30→20:55)
--- NOTE | 2022-09-05 08:20 | P.PN ---
Subjective Date of Service: 09/05/22 Chief Complaint: Respiratory failure Subjective: Improving (Patient is doing much better he is more alert responsive cooperative has some wheezing) Review of Systems General: Weakness Respiratory: Shortness of Breath Physical Examination - Vital Signs Temperature: 97.0 F Blood Pressure: 99/48 Pulse: 73 Respirations: 16 Pulse Ox (%): 99 - Physical Exam General: Alert, Oriented x3 Respiratory: Expiratory wheezes Cardiovascular: No edema, Regular rate/rhythm - Studies Medications List Reviewed: Yes Assessment And Plan - Current Problems (Diagnosis) (1) Acute respiratory failure with hypoxia Current Visit: Yes Status: Acute Plan: Patient has improved significantly labs reviewed doubt sepsis wheezing add bronchodilator cultures are all negative patient has chronic renal failure DC all antibiotic stable to transfer to the floor Physician Review: Patient Assessed, Agree with Above Assessment and Plan
--- NOTE | 2022-09-05 08:34 | RAD REPORT ---
EXAM DESCRIPTION: RAD - Chest Single View - 09/05/2022 5:35 am CLINICAL HISTORY: pneumonia Chest pain. COMPARISON: Chest Single View dated 09/03/2022; Chest Single View dated 07/18/2022; Chest Single View dated 07/14/2022; Chest Single View dated 10/10/2021 FINDINGS: Portable technique limits examination quality. Since 09/03/2022, no significant change in moderate bilateral pulmonary opacities seen. The heart is normal in size. Right-sided venous catheter its tip in the SVC. IMPRESSION: Stable chest since 09/03/2022 study.
[2022-09-05] MEDS: ARFORMOTEROL TARTRATE 15 MCG/2 ML VIAL.NEB NEB SCH ×2 (08:45→19:50)
[2022-09-05] MEDS: APIXABAN 2.5 MG TABLET PO SCH ×2 (09:00→19:21)
[2022-09-05] MEDS: MIDODRINE HCL 5 MG TABLET PO SCH ×3 (09:15→20:54)
--- NOTE | 2022-09-05 09:43 | P.PN ---
Nephrology note (S) Pt appears much better today, more awake/alert although does not recall events of yesterday, dialyzed uneventfully yesterday, 2.5L removed, pt is off BIPAP but no sig radiographic improvement seen General: Other (Appears less ill, still pale) HEENT: Atraumatic, Normocephalic, Other (BIPAP mask off), Sclerae nonicteric Neck: Other (Rt IJ TDC, no exit site drainage noted) Respiratory: Other (Less coarse BS b/l, non tachypnec) Cardiovascular: Other (No longer bradycardic, mostly regular) Gastrointestinal: Other (Soft, ND, NT) Musculoskeletal: No swelling, No erythema, No tenderness Integumentary: No rashes Neurological: Other (Awaken, responsive, moves ext spont) Laboratory Data (last 24 hrs) Reviewed in the EMR Conclusions/Impression: A/P) 1. 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 Acquired absence of kidney 3. Acute hypoxic respiratory insufficiency 4. Acute pulmonary edema suspected +/- PNA, unspecified organism 5. Hypotension, unspecified 6. Bradycardia unspecified -resolved 7. Hyperkalemia -resolved 8. Metab & resp acidosis -improved 9. Anemia due to chronic illnesses Stage III ARF per BARBRA def as Cr level > 4 mg/dl in Jul 12 to multifactorial etiology on underling CKD IV with solitary kidney state (Rt kidney, 9 cm with remote Lt nephrectomy for urothelial carcinoma or related). VOTATOR MACHINE OPERATOR initiated and pt has been dialysis dependent for > 1 mo c/w loss of function. S/p HD yesterday, metab profile improved. Will perform SEQ/UF alone dialysis today Acute hypoxic resp insufficiency with probable acute pulm edema +/- PNA (unspecified organism) on underlying chronic lung disease due to COPD +/- other -S/p UF of 2.5L yesterday, no radiographic improvement but clinically better, off NIPPV. Pulm following, Abx per them, dose renally Hypotension, unspecified -Multifactorial, BCx neg thus far, pt empirically started on Midodrine support per primary team. Bradycardia unspecified. Parox Afib. Diastolic CHF, chronic. MR, non rheumatic -Bradycardia possibly related to hyperkalemia and acidosis yesterday, resolved, hold beta frank currently. [place] MD, BRISSA
[2022-09-05] MEDS: FUROSEMIDE 20 MG TABLET PO SCH ×2 (10:31→16:40)
[2022-09-05 12:10] LABS: Hematocrit 25.6 % (39.6-49.0); RBC Red Blood Cell Count 2.83 M/uL (4.33-5.43)
[2022-09-05] MEDS ORDERED: VANCOMYCIN 1 GM in NA CHLORIDE 0.9% 250 ML IVPB SCH (17:00)
--- NOTE | 2022-09-05 17:58 | CON ---
Date of Consultation: 09/05/2022 Reason For Consultation: Brief episode of bradycardia. History Of Present Illness: This is a 77-year-old male with past medical history of end-stage renal disease, on hemodialysis, coronary artery disease status post cardiac stents placement, paroxysmal at rial fibrillation, COPD, on home O2, diastolic congestive heart failure, peripheral vascular disease, dyslipidemia, hypertension, diabetes, active smoker, presented to the emergency room due to shortnes s of breath. He felt sick apparently and missed dialysis. In the ER, his oxygen saturation on arriv al was 74% on 2 L. After dialysis, the patient's symptoms have improved. Apparently, he had a short period where he had a sinus bradycardia to high 30s, but at the present time, his heart rate is in t he mid 70s and sinus. Past Medical History: As outlined above in the HPI. Medications: Refer to reconciliation sheet for detailed list. Allergies: CODEINE AND SULFA. Family History: No premature coronary artery disease or cancer. Social History: He is a smoker. Does not drink or use any drugs. Review of Systems: All systems reviewed and they were negative except what mentioned in HPI. Physical Examination: Vital Signs: Temperature is 97.3, pulse 90, breathing at 19, blood pressure is 100/50, saturating 99 %. General: Pleasant elderly male, in no distress. Head and Neck: Pupils are equal, reactive to light. Intact eye movements. JVD elevation is present . Lungs: Crackles in both bases. No accessory muscle use or muscle retraction. Heart: Regular rate and rhythm. No extra sounds. Abdomen: Soft, nontender. Bowel sounds positive. No organomegaly. No masses or hernia. No rigidi ty or rebound. Extremities: No clubbing or cyanosis. Intact pulses. Skin: No rash. Neurologic: Alert, awake, oriented x3. No acute focal deficits appreciated. Investigations: On arrival; potassium was 6, CO2 level was 22 with creatinine of 5.4. Assessment And Recommendations: 1.Sinus bradycardia. This could be due to the hyperkalemia that was corrected with dialysis. At th e present time, potassium is normal, the patient's heart rate is normal. Continue to monitor on tele metry and obtain an echocardiogram. 2.End-stage renal disease, missed dialysis, now beginning dialysis in-house and electrolytes are bal anced. 3.Hyperkalemia, status post dialysis and potassium is normal now. 4.Acute respiratory failure due to congestive heart failure exacerbation and fluid retention, better with dialysis. SR/MODL Voice ID: [id number] Report ID: [id number]
[2022-09-05] MEDS ORDERED: MELATONIN 5 MG TABLET PO PRN (23:31)
[2022-09-06] MEDS: FENTANYL CITR 100 MCG/2 ML IV PRN ×4 (04:36→19:35)
[2022-09-06 04:46] VITALS: BMI 27.5
[2022-09-06 05:28] LABS: Hematocrit 27.8 % (39.6-49.0); Lymphocytes % 18.1 % (15.3-44.8); MCV 92.1 fL (80-100); MPV 7.5 fL (7.6-11.3); RBC Red Blood Cell Count 3.02 M/uL (4.33-5.43)
[2022-09-06 05:43] LABS: Potassium 4.5 mmol/L (3.5-5.1)
[2022-09-06] MEDS: INSULIN -REGULAR HUMAN 50 UNIT/0.5 ML ML SQ SCH ×4 (07:30→21:00)
[2022-09-06] MEDS: ARFORMOTEROL TARTRATE 15 MCG/2 ML VIAL.NEB NEB SCH ×2 (08:05→20:45)
[2022-09-06] MEDS ORDERED: HOME MED 1 EA UNK (Ipratropium/Albuterol Sulfate [Combivent Respimat 20-100 Mcg] 4 GM Mist IH PRN (08:26)
--- NOTE | 2022-09-06 08:30 | P.PN ---
Date of Service: 09/06/22 Subjective Patient continues to improve. Plan to do hemodialysis today. If patient does well and oxygenation is stable then anticipate discharge over the next 24 to 48 hours. We may need to arrange for home health as well as home O2. We will get patient out of bed today and see how he does. Review of Systems 10-point ROS is otherwise unremarkable Physical Examination - Vital Signs Reviewed - Physical Exam General: Alert, In no apparent distress, Oriented x3 Respiratory: End expiratory wheezing Cardiovascular: Regular rate/rhythm, Normal S1 S2, No murmurs Gastrointestinal: Normal bowel sounds, Soft and benign, Non-distended, No tenderness Musculoskeletal: No clubbing, No swelling, No tenderness Neurological: No focal deficits Assessment & Plan - Problems (Diagnosis) (1) Bradycardia Current Visit: Yes Status: Acute (2) Hypotensive episode Current Visit: Yes Status: Acute (3) Metabolic acidosis Current Visit: Yes Status: Acute (4) Hyperkalemia Current Visit: Yes Status: Acute (5) Acute respiratory failure with hypoxia Current Visit: Yes Status: Acute (6) Afib Current Visit: Yes Status: Chronic Qualifiers: Atrial fibrillation type: paroxysmal Qualified Code(s): I48.0 - Paroxysmal atrial fibrillation (7) Anemia Current Visit: Yes Status: Chronic Qualifiers: Anemia type: due to chronic kidney disease Chronic kidney disease stage: on chronic dialysis Qualified Code(s): N18.6 - End stage renal disease; D63.1 - Anemia in chronic kidney disease; Z99.2 - Dependence on renal dialysis (8) CAD (coronary artery disease) Current Visit: Yes Status: Chronic Qualifiers: Coronary Disease-Associated Artery/Lesion type: [place] artery [place] vs. transplanted heart: [place] heart Associated angina: without angina Qualified Code(s): I25.10 - Atherosclerotic heart disease of [place] coronary artery without angina pectoris (9) Diabetes mellitus Current Visit: Yes Status: Chronic Qualifiers: Diabetes mellitus type: type 2 Diabetes mellitus halfway insulin use: without halfway use Diabetes mellitus complication status: with hyperglycemia Qualified Code(s): E11.65 - Type 2 diabetes mellitus with hyperglycemia (10) Dyslipidemia Current Visit: Yes Status: Chronic (11) HTN (hypertension) Current Visit: Yes Status: Chronic Qualifiers: Hypertension type: primary hypertension Qualified Code(s): I10 - Essential (primary) hypertension (12) ESRD (end stage renal disease) Current Visit: Yes Status: Acute - Plan Continue with plan of care as mentioned below: 1. HD per Nephrology; anticipate DC if does ok with PT today 2. Appreciate Pulmonary input 3. Hemodynamics improved as acidosis/hyperkalemia has been corrected; Cardiology consultation appreciated 4. Transfer to the floor 5. Wean off O2 6. Echocardiogram reviewed 7. Anticipate discharge over the next 24 to 48 hours 8. GI/DVT prophylaxis
[2022-09-06] MEDS: VITAMIN D 1000 UNIT TAB PO SCH (08:48)
[2022-09-06] MEDS: CYANOCOBALAMIN 1,000 MCG TAB PO SCH (08:48)
[2022-09-06] MEDS: allopurinoL 100 MG TAB PO SCH (08:48)
[2022-09-06] MEDS: PARoxetine HCL 10 MG TAB PO SCH (08:48)
[2022-09-06] MEDS: FINASTERIDE 5 MG TAB PO SCH (08:48)
[2022-09-06] MEDS: FUROSEMIDE 20 MG TABLET PO SCH ×2 (08:48→16:56)
[2022-09-06] MEDS: MIDODRINE HCL 5 MG TABLET PO SCH ×3 (08:48→21:39)
[2022-09-06] MEDS ORDERED: glipiZIDE 5 MG TAB PO SCH (09:00)
[2022-09-06] MEDS: HOME MED 1 EA UNK (Budesonide/Formoterol Fumarate [Symbicort 160-4.5 Mcg Inhaler] 10.2 GM IH SCH ×2 (09:00→21:00)
[2022-09-06] MEDS: APIXABAN 2.5 MG TABLET PO SCH (09:00)
[2022-09-06] MEDS ORDERED: HOME MED 1 EA UNK (Cholecalciferol (Vitamin D3) [Vitamin D3] 25 MCG Capsule) PO SCH (09:00)
[2022-09-06] MEDS ORDERED: TRAMADOL HCL 50 MG TAB PO PRN (09:14)
--- NOTE | 2022-09-06 11:44 | P.PN ---
Subjective Date of Service: 09/06/22 Chief Complaint: Respiratory failure Subjective: Improving (Patient is doing much better he is very alert oriented responsive no new complaint) Review of Systems Unremarkable General: Weakness Physical Examination - Vital Signs Temperature: 96.9 F Blood Pressure: 128/80 Pulse: 63 Respirations: 20 Pulse Ox (%): 93 - Physical Exam General: Alert, Oriented x3 Neck: Supple Respiratory: Clear to auscultation bilaterally Cardiovascular: No edema, Regular rate/rhythm - Studies Medications List Reviewed: Yes Assessment And Plan - Current Problems (Diagnosis) (1) Acute respiratory failure with hypoxia Current Visit: Yes Status: Acute Plan: Patient admitted with respiratory failure has improved labs reviewed cultures negative vital signs stable done well stable to be transferred to the floor continue with bronchodilator Physician Review: Patient Assessed, Agree with Above Assessment and Plan
[2022-09-06] MEDS: D10W 250 ML IV PRN ×3 (11:48→16:02)
--- NOTE | 2022-09-06 13:23 | EKG ---
Test Date: 2022-09-04 Test Time: 00:02:59 [employer] Paralegal: MEASUREMENT RESULTS: Intervals: Rate: 50 [place]: QRSD: 92 QT: 430 QTc: 392 [place]: P: [place]: QRS: 54 T: 63 INTERPRETIVE STATEMENTS: Sinus rhythm Abnormal ECG Compared to ECG 07/14/2022 17:02:13 Ventricular premature complex(es) no longer present T-wave abnormality no longer present Electronically Signed On 09-06-22 13:18:35 HUMAN RESOURCES ADVISOR by Deepak Goodrich
[2022-09-06 13:55] LABS: Hepatitis B surface AG Interp. Nonreactive (Nonreactive)
--- NOTE | 2022-09-06 14:26 | PN ---
Date of Progress Note: 09/06/2022 Subjective: Seen by bedside. Doing well. No complaints. Review of Systems: No chest pain, shortness of breath, orthopnea, cough. No nausea, vomiting, diarrhea. All other syst ems reviewed and they were negative. His heart rate drops down at night, but it is sinus bradycardia while he is asleep and he is asymptomatic. Physical Examination: Vital Signs: Temperature is 96.9, heart rate is 63, breathing at 18, blood pressure 128/80, saturati ng 94% on room air. General: Pleasant elderly male, in no apparent distress. Head and Neck: Pupils are equal, reactive to light. Intact eye movements. No JVD. No cervical lym phadenopathy. Neck is supple. Thyroid is not enlarged. Lungs: Clear to auscultation bilaterally. No rhonchi, wheezing, or crackles. No accessory muscle u se. Heart: Regular rate and rhythm. No extra sounds. Sinus. Abdomen: Soft, nontender. Bowel sounds positive. No organomegaly. No masses or hernia. No rigidi ty or rebound. Extremities: No edema, clubbing, or cyanosis. Intact pulses. Skin: No rash. Neurologic: Alert, awake, oriented x3. No acute focal deficits appreciated. Investigations: BUN 60, creatinine 3.8, potassium 4.5. Assessment And Recommendations: 1.Sinus bradycardia, mainly while asleep. Electrolyte are balanced now. The patient is asymptomati c. His heart responds very well to demand. No further intervention is needed. 2.End-stage renal disease, on hemodialysis. SR/MODL Voice ID: [id number] Report ID: [id number]
--- NOTE | 2022-09-06 17:21 | P.PN ---
Nephrology note (S) Pt re dialyzed today without incident, doing better overall, off O2, BG has been low this afternoon but pt received Glipizide this AM General: Other (Appears less ill, still pale) HEENT: Atraumatic, Normocephalic, Other (BIPAP mask off), Sclerae nonicteric Neck: Other (Rt IJ TDC, no exit site drainage noted) Respiratory: Other (Less coarse BS b/l, non tachypnec) Cardiovascular: Other (No longer bradycardic, mostly regular) Gastrointestinal: Other (Soft, ND, NT) Musculoskeletal: No swelling, No erythema, No tenderness Integumentary: No rashes Neurological: Other (Awaken, responsive, moves ext spont) Laboratory Data (last 24 hrs) Reviewed in the EMR Conclusions/Impression: A/P) 1. 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 Acquired absence of kidney 3. Acute hypoxic respiratory insufficiency, improved 4. Acute pulmonary edema suspected +/- PNA, unspecified organism, improved 5. Hypotension, unspecified -resolved 6. Bradycardia unspecified -resolved 7. Hyperkalemia -resolved 8. Metab & resp acidosis -improved 9. Anemia due to chronic illnesses Stage III ARF per BARBRA def as Cr level > 4 mg/dl in Jul 12 to multifactorial etiology on [place] CKD IV with solitary kidney state (Rt kidney, 9 cm with remote Lt nephrectomy for urothelial carcinoma or related). NURSES ASSISTANT initiated and pt has been dialysis dependent for > 1 mo c/w loss of function. S/p HD Wed, SEQ/UF alone dialysis Thurs, HD today and will likely perform brief dialysis tmrw per OP TTS schedule prior to discharge. Acute hypoxic resp insufficiency with probable acute pulm edema +/- PNA (unspecified organism) on underlying chronic lung disease due to COPD +/- other -S/p UF of 2.5L again today, clinically better, off NIPPV. Hypotension, unspecified on admission -BCx neg, pt empirically started on Midodrine support per primary team and BP has held up well on dialysis Bradycardia unspecified. Parox Afib. Diastolic CHF, chronic. MR, non rheumatic -Bradycardia possibly related to hyperkalemia and acidosis on admission, largely resolved. Pt has remained hemodynamically stable with UF on dialysis Tung [place] MD, BRISSA
[2022-09-06] MEDS ORDERED: ATORVASTATIN 40 MG TAB PO SCH (21:00)
[2022-09-06] MEDS ORDERED: TAMSULOSIN 0.4 MG SR CAP PO SCH (21:00)
[2022-09-06] MEDS ORDERED: GABAPENTIN 300 MG CAP PO SCH (21:00)
[2022-09-07] MEDS: FENTANYL CITR 100 MCG/2 ML IV PRN ×3 (03:15→12:37)
[2022-09-07 04:06] LABS: Hematocrit 27.4 % (39.6-49.0); Lymphocytes % 31.4 % (15.3-44.8); MCV 91.1 fL (80-100); MPV 7.4 fL (7.6-11.3); RBC Red Blood Cell Count 3.01 M/uL (4.33-5.43)
[2022-09-07 04:23] LABS: Potassium 4.4 mmol/L (3.5-5.1)
[2022-09-07] MEDS: INSULIN -REGULAR HUMAN 50 UNIT/0.5 ML ML SQ SCH ×2 (07:30→11:30)
[2022-09-07] MEDS: ARFORMOTEROL TARTRATE 15 MCG/2 ML VIAL.NEB NEB SCH (08:07)
[2022-09-07] MEDS: VITAMIN D 1000 UNIT TAB PO SCH (08:20)
[2022-09-07] MEDS: PARoxetine HCL 10 MG TAB PO SCH (08:20)
[2022-09-07] MEDS: FINASTERIDE 5 MG TAB PO SCH (08:21)
[2022-09-07] MEDS: HOME MED 1 EA UNK (Budesonide/Formoterol Fumarate [Symbicort 160-4.5 Mcg Inhaler] 10.2 GM IH SCH (08:21)
[2022-09-07] MEDS: MIDODRINE HCL 5 MG TABLET PO SCH ×2 (08:21→14:00)
[2022-09-07] MEDS: allopurinoL 100 MG TAB PO SCH (08:21)
[2022-09-07] MEDS: CYANOCOBALAMIN 1,000 MCG TAB PO SCH (08:21)
[2022-09-07] MEDS ORDERED: FUROSEMIDE 20 MG TABLET PO SCH (09:00)
[2022-09-07 12:09] VITALS: TEMP 97.6; O2SAT 95
--- NOTE | 2022-09-07 14:14 | P.DS ---
Discharge Date: 09/07/22 Disposition: ROUTINE DISCHARGE Discharge Condition: GOOD Reason for Admission: Respiratory failure - Problems (1) Bradycardia Current Visit: Yes Status: Acute (2) Hypotensive episode Current Visit: Yes Status: Acute (3) Metabolic acidosis Current Visit: Yes Status: Acute (4) Hyperkalemia Current Visit: Yes Status: Acute (5) Acute respiratory failure with hypoxia Current Visit: Yes Status: Acute (6) Afib Current Visit: Yes Status: Chronic Qualifiers: Atrial fibrillation type: paroxysmal Qualified Code(s): I48.0 - Paroxysmal atrial fibrillation (7) Anemia Current Visit: Yes Status: Chronic Qualifiers: Anemia type: due to chronic kidney disease Chronic kidney disease stage: on chronic dialysis Qualified Code(s): N18.6 - End stage renal disease; D63.1 - Anemia in chronic kidney disease; Z99.2 - Dependence on renal dialysis (8) CAD (coronary artery disease) Current Visit: Yes Status: Chronic Qualifiers: Coronary Disease-Associated Artery/Lesion type: [place] artery [place] vs. transplanted heart: [place] heart Associated angina: without angina Qualified Code(s): I25.10 - Atherosclerotic heart disease of [place] coronary artery without angina pectoris (9) Diabetes mellitus Current Visit: Yes Status: Chronic Qualifiers: Diabetes mellitus type: type 2 Diabetes mellitus retirement insulin use: without retirement use Diabetes mellitus complication status: with hyperglycemia Qualified Code(s): E11.65 - Type 2 diabetes mellitus with hyperglycemia (10) Dyslipidemia Current Visit: Yes Status: Chronic (11) HTN (hypertension) Current Visit: Yes Status: Chronic Qualifiers: Hypertension type: primary hypertension Qualified Code(s): I10 - Essential (primary) hypertension (12) ESRD (end stage renal disease) Current Visit: Yes Status: Acute Brief History of Present Illness: Patient is a 77-year-old male with a past medical history of ESRD on HD, end stage COPD on home O2, paroxysmal atrial fibrillation, CAD s/p PCI, chronic diastolic CHF, PAD, monoclonal gammopathy, hypertension, dyslipidemia, noninsulin dependent type 2 diabetes mellitus, BPH, and tobacco use disorder who presented to the emergency department via EMS with complaints of shortness of breath, chills, nonproductive cough. He did not go to dialysis today. EMS reports he was 74% on 2L when they arrived. They gave him an albuterol/atrovent breathing treatment. He was placed on bipap upon arrival. His labs are significant for WBC 13.3, hgb 9.5, potassium 6, BUN 64, creatinine 5.4, alk phos 120, BNP 81651, lactate 2.1, covid/flu negative. Chest xray showed " Prominent interstitial markings suggestive of interstitial edema, Hazy bibasilar opacities, Blunting of the costophrenic angles suggestive of bilateral pleural effusions, Left hemidiaphragm is obscured which can be seen with left pleural effusion, as well as left lower lobe consolidation or atelectasis." He received treatment for hyperkalemia as well as azithromycin and ceftriaxone for suspected pneumonia. Patient is admitted for further management. Hospital Course: Clinically doing much better. Symptoms are improved. Counseled regarding making sure he continues with his hemodialysis as scheduled. Plan to discharge him home if okay with nephrology and consultants. Hold off on nifedipine and metoprolol. Continue with midodrine. Arrange for home health at discharge. Patient will discharge home with outpatient follow-up. Vital Signs/Physical Exam: Temp Pulse Resp BP Pulse Ox 97.6 F 85 18 122/66 95 09/07/22 12:00 09/07/22 12:00 09/07/22 12:37 09/07/22 12:00 09/07/22 12:37 General: Alert, In no apparent distress, Oriented x3 Laboratory Data at Discharge: WBC 9.40 K/uL (4.3-10.9) 09/07/22 03:10 Hgb 9.2 g/dL (13.6-17.9) L 09/07/22 03:10 Hct 27.4 % (39.6-49.0) L 09/07/22 03:10 Plt Count 244 K/uL (152-406) 09/07/22 03:10 PT 11.7 SECONDS (9.5-12.5) 09/04/22 00:15 INR 1.06 09/04/22 00:15 APTT 34.8 SECONDS (24.3-36.9) 09/04/22 00:15 Sodium 139 mmol/L (136-145) 09/07/22 03:10 Potassium 4.4 mmol/L (3.5-5.1) 09/07/22 03:10 BUN 48 mg/dL (7-18) H 09/07/22 03:10 Creatinine 3.01 mg/dL (0.70-1.30) H 09/07/22 03:10 Glucose 98 mg/dL (74-106) 09/07/22 03:10 Phosphorus 5.7 mg/dL (2.5-4.9) H 09/05/22 04:30 Magnesium Cancelled 09/05/22 06:00 Total Bilirubin Cancelled 09/05/22 06:00 AST Cancelled 09/05/22 06:00 ALT Cancelled 09/05/22 06:00 Alkaline Phosphatase Cancelled 09/05/22 06:00 Home Medications: Atorvastatin Calcium 40 mg PO BEDTIME 08/02/18 Finasteride [Proscar*] 5 mg PO DAILY 08/02/18 Gabapentin 300 mg PO BEDTIME 08/02/18 Paroxetine HCl [Paxil] 20 mg PO DAILY 08/02/18 allopurinoL [Zyloprim*] 100 mg PO DAILY 08/03/18 Budesonide/Formoterol Fumarate [Symbicort 160-4.5 Mcg Inhaler] 2 puff IH BID #60 hfa.aer.ad 08/06/18 Cholecalciferol (Vitamin D3) [Vitamin D3] 25 mcg PO DAILY 08/08/21 Cyanocobalamin [Vitamin B-12*] 2,000 mcg PO DAILY 08/08/21 Ipratropium/Albuterol Sulfate [Combivent Respimat 20-100 Mcg] 1 puff IH Q6H PRN 08/08/21 Apixaban [Eliquis *] 2.5 mg PO BID #60 tablet 08/11/21 Furosemide [Lasix] 40 mg PO DAILY #30 tablet 08/11/21 Albuterol Neb [Proventil 0.083% Neb Soln] 3 ml NEB PRN PRN 09/04/22 Ipratropium Neb [Atrovent*] 2.5 ml NEB PRN PRN 09/04/22 Tamsulosin [Flomax*] 0.4 mg PO BEDTIME 09/04/22 Albuterol Neb [Proventil 0.083% Neb Soln] 2.5 mg NEB [id number] PRN #60 amp 09/07/22 Arformoterol Tartrate [Brovana] 15 mcg NEB BIDRESP #60 vial.neb 09/07/22 Cholecalciferol (Vitamin D3) [Vitamin D 1000 Iu Tab*] 1,000 unit PO DAILY #30 tab 09/07/22 Ipratropium Neb [Atrovent*] 0.5 mg NEB Q12H #60 amp 09/07/22 Melatonin 5 mg PO BEDTIME PRN PRN #30 09/07/22 Midodrine HCl [Proamatine*] 5 mg PO TID #90 tab 09/07/22 traMADol HCL [Ultram*] 50 mg PO Q6H PRN #60 tab 09/07/22 New Medications: Ipratropium Neb [Atrovent*] 0.5 mg NEB Q12H #60 amp Arformoterol Tartrate [Brovana] 15 mcg NEB BIDRESP #60 vial.neb Melatonin 5 mg PO BEDTIME PRN PRN #30 PRN Reason: Insomnia Midodrine HCl [Proamatine*] 5 mg PO TID #90 tab Albuterol Neb [Proventil 0.083% Neb Soln] 2.5 mg NEB [id number] PRN #60 amp PRN Reason: Shortness Of Breath traMADol HCL [Ultram*] 50 mg PO Q6H PRN #60 tab PRN Reason: Pain Scale 5-7 (Moderate) Cholecalciferol (Vitamin D3) [Vitamin D 1000 Iu Tab*] 1,000 unit PO DAILY #30 tab Physician Discharge Instructions: -DC IV and DC to home -Follow-up with PCP in 1-2 weeks -Follow-up with Nephrology for HD -Return to the ER if symptoms worsens -Please call Dr. Navarrete at [phone] if any questions regarding hospital stay -Please call nursing station at [phone] if any nursing or medication questions -Return to the emergency room if symptoms worsen Diet: Renal Activity: Fall precautions Time spent managing pt's care (in minutes): 35
[2022-09-07 17:00] VITALS: BP 133/76
== END 2022-09-07 16:49 | disposition home health service (06) | DRG 193 ==
LOC: ER 23:39 → ERHOLD 09-04 02:15 → 4TH 09-04 02:40 → 3RD-ICU 09-04 12:03 → 4TH 09-06 17:25
PROVIDERS: ADMIT Hospitalist; ATTEND Hospitalist
PROC: 5A09457 Assistance with Respiratory Ventilation, 24-96 Consecutive Hours, Continuous Positive Airway Pressure (ICD-10-PCS; principal; 2022-09-04)
PROC: 5A1D70Z Performance of Urinary Filtration, Intermittent, Less than 6 Hours Per Day (ICD-10-PCS; 2022-09-04)
DX: J18.9 Pneumonia, unspecified organism (principal); J96.01 Acute respiratory failure with hypoxia; N18.6 End stage renal disease; J44.1 Chronic obstructive pulmonary disease with (acute) exacerbation; Z16.12 Extended spectrum beta lactamase (ESBL) resistance; J44.0 Chronic obstructive pulmonary disease with (acute) lower respiratory infection; I50.32 Chronic diastolic (congestive) heart failure; I13.2 Hypertensive heart and chronic kidney disease with heart failure and with stage 5 chronic kidney disease, or end stage renal disease; N17.9 Acute kidney failure, unspecified; E87.21 Acute metabolic acidosis; E87.5 Hyperkalemia; E11.22 Type 2 diabetes mellitus with diabetic chronic kidney disease; E11.42 Type 2 diabetes mellitus with diabetic polyneuropathy; E11.51 Type 2 diabetes mellitus with diabetic peripheral angiopathy without gangrene; E11.65 Type 2 diabetes mellitus with hyperglycemia; D63.1 Anemia in chronic kidney disease; E78.5 Hyperlipidemia, unspecified; I48.0 Paroxysmal atrial fibrillation; I95.9 Hypotension, unspecified; I25.10 Atherosclerotic heart disease of native coronary artery without angina pectoris; F17.200 Nicotine dependence, unspecified, uncomplicated; B95.62 Methicillin resistant Staphylococcus aureus infection as the cause of diseases classified elsewhere; R00.1 Bradycardia, unspecified; Z90.5 Acquired absence of kidney; Z88.5 Allergy status to narcotic agent; Z88.1 Allergy status to other antibiotic agents; Z99.2 Dependence on renal dialysis; Z91.15 Patient's noncompliance with renal dialysis; Z99.81 Dependence on supplemental oxygen; Z79.01 Long term (current) use of anticoagulants; Z79.52 Long term (current) use of systemic steroids; Z79.51 Long term (current) use of inhaled steroids; Z85.51 Personal history of malignant neoplasm of bladder; Z79.899 Other long term (current) drug therapy; Z20.822 Contact with and (suspected) exposure to COVID-19
CPT/HCPCS: 0240U; 36415; 71045; 73700; 80048; 80053; 80202; 82533; 82607; 82805; 82947; 83036; 83540; 83605; 83735; 83880; 84100; 84439; 84443; 85014; 85018; 85025; 85044; 85610; 85730; 87040; 87086; 87088; 87340; 90935; 93005; 94010; 94660; 97161; 97530; 97542; 99285; J0456; J0610; J1100; J1644; J1815; J2405; J2543; J3010; J3370; J7030; J7040; J7050; J7605; J7613; J7644; P9047

== ENCOUNTER 2022-10-26 18:43 | Inpatient (IN) | payer OTHER ==
--- OUTSIDE RECORDS SUMMARY | 2022-10-26 18:57 | XMS REPORT | Continuity of Care Document ---
:1945 Author Organization [facility] t Address [address] [place] [address]. [address] [place] [address] Care Team Providers Name Role Phone [facility] Primary Care Physician Unavailable MARGIE MORRIS Attending Clinician Unavailable Doctor Unassigned, [place] Attending Clinician Unavailable ANGIE MARTINEZ Attending Clinician Unavailable Hemanth Redmond RN Attending Clinician Unavailable JERE WOODWARD Attending Clinician Unavailable Quinn Ibarra MD Attending Clinician Jere Woodward MD Attending Clinician ANGIE MARTINEZ Admitting Clinician Unavailable JERE WOODWARD Admitting Clinician Unavailable Jere Woodward MD Admitting Clinician Payers Payer Name Policy Type Policy Number Effective Date Expiration Date S lj MEDICARE PART A [id number] 2005 \\T\\ B 00:00:00 1005 [id number] 1959 00:00:00 WPS-VACAA C1 [id number] [facility] WPS-VACAA C1 [id number] [facility] Problems Condition Condition Condition Status Onset Resolution [...] 1-25 it y of on on 00:00: [place] [facility] Obesity Obesity Disease Active Univers (BMI (BMI 1-24 ity of 30-39.9) 30-39.9) 00:00: [place] [facility] Coronary Coronary Disease Active Unive rs artery artery 1-24 ity of disease disease 00:00: [place] involving involving 00 Medi unruly [place]ana tan[place] Branch coronary coronary artery of artery of tanana tanana heart heart without without angina angina pectoris pectoris Atrial Atrial Disease Active Univers flutter flutter 1-24 ity of 00:00: [place] [facility] PAD PAD Disease Active Univers (periphera (periphera 1-24 it y of l artery l artery 00:00: [place] disease) disease) 00 Medica l Branch Chronic Chronic Disease Active Univers diastolic diastolic 1-24 ity of congestive congestive 00:00[place] heart heart 00 Medical failure failure Branch Primary Primary Disease Active Univers hypertensi hypertensi 1-24 it y of on on 00:00: [place] [facility] Other Other Disease Active Univers hyperlipid hyperlipid 1-24 it y of emia emia 00:00: [place] [facility] JAZZY (acute JAZZY (acute Disease Active U nivers kidney kidney 1-24 ity of injury) injury) 00:00: [place] [facility] Toe ulcer, Toe ulcer, Disease Active U nivers right, right, 2-20 ity of limited to limited to [place] breakdown breakdown 00 Medi unruly of skin of skin Branch COPD COPD Disease Active Univers exacerbati exacerbati 2-16 it y of on on 00:00: [place] [id number] Medical Branch COPD COPD Disease Active Univers [...] vers foot foot 1-28 ity of 00:00: [place] [facility] Respirator Respirator Disease Active 2016-08 U nivers y failure, y failure, -26 it y of acute acute 00:00: [address] [id number] MRSA Problem Active Common (methicill Spirit in - [facility] resistant staph [facility] aureus) Medical culture Center positive [id number] OAB Problem Active Common (overactiv Spirit e bladder) - [facility] [id number] Urge Problem Active Common incontinen Spirit ce - [facility] [id number] 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 [facility] [id number] Lower Problem Active Common urinary Spirit tract - [facility] symptoms (LUTS) [facility] [id number] 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 - [facility] bladder, unspecifie [facility] Allergies, Adverse Reactions, Alerts Allergy Allergy Status Severity Reaction(s) Onset Inactive Treating Comm ents Source Name Type Date Date Clinician Ariana Propensi Active Rash LEUKOCYTO Uni vers llin-David ty to 2-27 CLASTIC ity of obactam adverse 00:00: VASCULITI [place] reaction 00 S Medical s Branch PIPERACI DRUG Active Rash Univers LLIN-DAVID 2-27 ity of OBACTAM 00:00: 00 Medical Branch [...] ity of 00:00: [place] 00 Medical Branch Sulfa Propensi Active Swelling Univer s (Sulfona ty to 4-03 ity of mide adverse 00:00: [place] Antibiot reaction 00 Medica l ics) s Branch SULFA Drug Active Swelling Univers (SULFONA Class 4-03 ity of MIDE 00:00: [place] ANTIBIOT 00 Medical ICS) Branch Social History Social Habit Start Date Stop Date Quantity Comments Source Exposure to Not sure [facility] SARS-CoV-2 [place] Medical (event) [place] Sex Assigned At [facility] - [facility] History of [facility] - Tobacco Use [facility] Alcohol intake 2021-09-07 2021-09-07 Current University of 00:00:00 00:00:00 non-drinker of [facility] alcohol (finding) Branch Tobacco use and 2017-09-25 2017-09-25 Smokeless tobacco Un iversity of exposure 00:00:00 00:00:00 non-user [facility] Tobacco Comment 2017-09-25 2017-09-25 Quit 1 month ago Uni versity of 00:00:00 00:00:00 [facility] Smoking Status Start Date Stop Date Source Ex-smoker 2017-09-25 00:00:00 2017-09-25 00:00:00 Universi ty of [facility] Medications Ordered Filled Start Stop Current Ordering Indication Dosage Frequency Signature Comments Components Source Medication Medication Date Date Medication? Clinician (SIG) Name Name linezolid No 600mg 600 mg, Uni vers (ZYVOX) 09-12 Oral, ity of tablet 600 02:00: 01:59 Q12H, 4 Naresh as mg 00 :00 doses, Medical First dose Branch (after last modificati on) on Fri09/11/21 at 1999, Last dose on Dee 09/13/21 at 0800, AILYN
Re ason for Anti-Infec tive: Documented Infection< br>Documen jose Infection Site: Urine
D uration of Therapy: 7 days
Re stricted use approved by: ADC PROVIDER aspirin 81 0 2021- No [id number] 81mg Take 1 Univers mg EC 09-12 tablet by ity of tablet 00:00: 05:59 mouth [place] 00 :00 daily for Medical 30 days. Branch aspirin 81 0 2021- No [id number] 81mg Take 1 Univers mg EC 09-12 [...] 5mg 5 mg. Unive rs , BULK, 2-01 ity of MISC 18:18: [place] 48 Medical Branch PAROXETINE Yes 20mg Take 20 mg U nivers HCL (PAXIL 2- by mouth. ity of ORAL) 18:18: [place] 48 Medical Branch allopurinol Yes 100mg Take 100 U nivers 100 mg 2-01 mg by ity of tablet 18:18: mouth [place] 48 daily. Medical Branch Mometasone Yes Inhale. Univ ers (ASMANEX 2-01 ity [...] Branch FINASTERIDE 2021-0 Yes 5mg 5 mg. [place] , BULK, 2- ity of MISC 18:18: [...] Branch FINASTERIDE 2021-0 [address] [facility] [employer] , BULK, 2- ity of MISC 18:18: [...] hr capsule 48 daily. Medical Branch atorvastati 2022-0 Yes 40mg Take 40 mg Univers n [...] Branch Mometasone Yes Inhale. Univ ers (ASMANEX 09-11 ity of TWISTHALER) 18:18: [place] 110 mcg [...] [place] 04 :00 Medical Branch apixaban 5 2021- No [id number] 5mg Take 1 Univ ers mg tablet 09-11 tablet by ity of 00:00: 05:59 mouth 2 [place] 00 :00 (two) Medical times Branch daily for 30 days. Indication s: prevention of thromboemb olism in paroxysmal atrial fibrillati on ferrous 2021- No [id number] 325mg Take 1 U nivers sulfate 325 09-11 tablet by it y of mg (65 mg 00:00: 05:59 [place] 2 [place] iron) 00 :00 (two) Medical tablet times Branch daily for 30 days. diltiazem 2021- No [id number] 120mg Take 1 Univers 120 mg 24 09-11 capsule by ity of hr capsule 00:00: 05:59 mouth [place] 00 :00 daily for Medical 30 days. [place] apixaban 5 No [id number] 5mg Take 1 Univ ers mg tablet 09-11 tablet by ity of 00:00: 05:59 mouth 2 [place] 00 :00 (two) Medical times Branch daily for 30 days. Indication s: prevention of thromboemb olism in paroxysmal atrial fibrillati on ferrous 2021- No [id number] 325mg Take 1 U nivers sulfate 325 09-11 tablet by it y of mg (65 mg 00:00: 05:59 mouth 2 [place] iron) 00 :00 (two) Medical tablet times Branch daily for 30 days. diltiazem No [id number] 120mg Take 1 Univers 120 mg 24 09-11 capsule by ity of hr capsule 00:00: 05:59 mouth [place] 00 :00 daily for Medical 30 days. [place] linezolid No [id number] 600mg Take 1 Univers 600 mg 09-11 tablet by ity of tablet 00:00: 05:59 mouth [place] 00 :00 every 12 Medical (twelve) Branch hours for 7 days. linezolid No [id number] 600mg Take 1 Univers 600 mg 09-11 tablet by ity of tablet 00:00: 05:59 mouth [place] 00 :00 every 12 Medical (twelve) Branch hours for 7 days. diltiazem No [id number] 30mg Take 1 Univers 30 mg 09-11 tablet by ity of tablet 00:00: 00:00 mouth [place] 00 :00 every 6 Medical (six) Branch hours for 30 days. HYDROcodone Yes 1{tbl} 1 tablet, Univers -acetaminop 09-10 Oral, ity of hen (NORCO 21:51: Q6HPRN, [place] 5) 5-325 mg 07 Starting Medi unruly tablet 1 on Fri Branch tablet 09/10/21 [...] mg 02:00: First dose [place] 00 on [facility] 09/09/21 at Branch 2000, Until Discontinu ed, [...] use approved by: ADC PROVIDER NaCl 0.9% No IV Univers (NS) 09-06 Infusion, ity of PEDIATRIC 05:15: 15:14 at 75 [place] IV infusion 00 :00 mL/hr, Medica l [facility] Branch , Starting on Fri09/05/21 at 2315, Until Dee 09/06/21 at 0914, Routine benzonatate Yes 100mg 100 mg, Un cameron (TESSALON 09-06 Oral, ity of PERLES) 00:54: Q8HPRN, [place] capsule 100 06 Starting Medi unruly mg on Fri Branch 09/05/21 at 1854, Until Discontinu ed, Routine, Cough diltiazem Yes 30mg 30 mg, Univer s (CARDIZEM) 09-05 Oral, Q6H, ity of tablet 30 18:00: First dose [place] mg [address] [facility] Medical 09/05/21 at Branch 1200, Until Discontinu [...] al (NS) 50 mL First dose Bra nch MINI-BAG on Fri09/03/21 at 2345, Until Discontinu ed, Administer over 30 Minutes, 50 mL
Reas on for Anti-Infec tive: Empiric Therapy for Suspected Infection< br>Empiric Therapy Site: Urine
D uration of therapy: 7 days tamsulosin Yes .4mg 0.4 mg, Univ ers (FLOMAX) 09-04 Oral, BID, ity o f capsule 0.4 03:15: First dose [place] mg 00 (after Medical last Branch modificati on) on [facility] 09/03/21 at 2115, Until Discontinu ed, Routine ferrous Yes 325mg 325 mg, Univer s sulfate 09-03 Oral, BID, ity of tablet 325 16:30: First dose [place] mg 00 on [facility] 09/03/21 at Branch 1030, Until Discontinu ed, Routine aspirin EC Yes 81mg 81 mg, Unive rs tablet 81 09-03 Oral, ity of mg 15:00: DAILY, [place] 00 First dose Medical on [facility] 09/03/21 at 0900, Until Discontinu ed, Routine PARoxetine Yes 20mg 20 mg, Unive rs (PAXIL) 09-03 Oral, ity of tablet 20 15:00: DAILY, [place] mg 00 First dose Medical on [facility] 09/03/21 at 0900, Until Discontinu ed finasteride Yes 5mg 5 mg, Unive rs (PROSCAR) 09-03 Oral, ity of tablet 5 mg 15:00: DAILY, [place] 00 First dose Medical on [facility] 09/03/21 at 0900, Until Discontinu ed NIFEdipine 2021- No 60mg 60 mg, Univ ers ER tablet 09-03 Oral, ity of 60 mg 15:00: 14:27 DAILY, [place] 00 :50 First dose Medical on [facility] 09/03/21 at 0900, Until Discontinu ed tamsulosin 2021- No .4mg 0.4 mg, Uni vers (FLOMAX) 09-03 Oral, ity of capsule 0.4 15:00: 03:06 DAILY, Naresh as mg 00 :19 First dose Medical on [facility] 09/03/21 at 0900, Until Discontinu ed, Routine azithromyci 2021- No 500mg 500 mg, IV Univers n 09-03 01-26 Piggyback, ity of (ZITHROMAX) 07:30: 00:32 Q24H ABX, [place] 500 mg in 00 :51 First dose [facility] NaCl 0.9% on [facility] (NS) 250 mL 09/03/21 at VIAL-MATE 0130, IV Until piggyback Discontinu ed, Administer over 60 Minutes, 250 mL
Reas on for Anti-Infec tive: Empiric Therapy for Suspected Infection< br>Empiric Therapy Site: Respirator y
Durat ion of therapy: 7 days albuterol 2021-0 Yes 2.5mg 2.5 mg, Univ ers (PROVENTIL) 1-24 Inhalation it y of 2.5 mg /3 06:29: , Q4HPRN, Naresh as mL (0.083 15 Starting Medica l %) on [facility] nebulizer 09/03/21 at solution 0029, 2.5 mg Until Discontinu ed, Routine, Shortness of Breath, Wheezing, Bronchospa sm heparin 2021-0 2021- No 5000U 5,000 Univers (porcine) 09-03 01-30 Units, ity of injection 04:00: 17:52 Subcutaneo [place] 5,000 Units 00 :16 us, Q8H, Medi unruly First dose Branch on 09/02/21 at 2200, Until Discontinu ed, Routine atorvastati 0 Yes 40mg 40 mg, Univ ers n (LIPITOR) 1-24 Oral, QHS, it y of tablet 40 03:00: [place] mg 00 on [facility] 09/02/21 at Branch 2100, Until Discontinu ed, Routine budesonide- 2021-0 Yes 2{puff} 2 Puff, [facility] [place] formoteroL 1-24 Inhalation ity of (SYMBICORT) 02:00: , BID, [place] 160-4.5 00 First dose Medica l mcg/actuati on [facility] on inhaler 09/02/21 at 2 Puff 2000, Until Discontinu ed, Routine ipratropium 2021-0 Yes 3mL 3 mL, Unive rs -albuteroL 1-24 Inhalation ity of (DUONEB) 02:00: , Q4H, [place] 0.5 mg-3 00 First dose Medic al mg(2.5 mg (after Branch base)/3 mL last nebulizer modificati solution 3 on) on [place] mL 09/02/21 at 2000, Until Discontinu ed, AILYN furosemide No 20mg 20 mg, Univ ers (LASIX) 09-03 Slow IV ity of injection 01:15: 02:16 Push, [place] 20 mg 00 :00 ONCE, 1 Medical dose, On Branch [place] 09/02/21 at 1915, Routine methylPREDN 2021- No 40mg 40 mg, Uni vers ISolone sod 09-03 Intravenou i ty of succ 00:00: 21:42 s, Q6H, [place] (SOLU-MEDRO 00 :53 First dose Me dical L (PF)) (after Branch injection last 40 mg reorder) on [place] 09/02/21 at 1800, Until Discontinu ed, STAT Sliding Yes Subcutaneo Univ ers Scale -23 us, TID ity of Insulin - 23:00: MEALS+HS, Naresh as Lispro 00 First dose Medical (HumaLOG) + on [facility] Fsbg 09/02/21 at Testing 1700, Until Discontinu ed, Routine glucagon Yes 1mg 1 mg, Univers (GLUCAGEN 09-02 Intramuscu ity of DIAGNOSTIC 22:44: lar, PRN, [place] KIT) 34 Starting Medical injection 1 on [facility] mg 09/02/21 at 1644, Until Discontinu ed, AILYN, Blood Glucose < or = 70 mg/dL and patient is unable to swallow or has mental changes. dextrose 50 Yes 25mL 25 mL, Univ ers % in water 09-02 Slow IV ity of (D50W) 22:44: Push, PRN, [place] injection 34 Starting Medica l 25 mL on [facility] 09/02/21 at 1644, Until Discontinu ed, AILYN, Blood Glucose < or = 70 mg/dL and patient is unable to swallow or has mental status changes. acetaminoph Yes 650mg 650 mg, Un cameron en 09-02 Oral, ity of (TYLENOL) 21:38: Q6HPRN, [place] tablet 650 12 Starting Medic al mg on Sun Branch 09/02/21 at 1538, Until Discontinu ed, Routine, Pain (scale 1-3) ipratropium 2021- No 3mL 3 mL, Univ ers -albuteroL 09-02 Inhalation it y of (DUONEB) 19:15: 18:44 , ONCE, 1 Naresh as 0.5 mg-3 00 :00 dose, On Medical mg(2.5 mg [facility] base)/3 mL 09/02/21 at nebulizer 1315, AILYN solution 3 mL Saxagliptin 2021- No 2.5mg Take 2.5 Univers 2.5 mg 09-02 mg by ity of tablet 18:17: 00:00 mouth [place] 03 :00 daily. Medical Branch furosemide 2021- No 20mg Take 20 mg Univers 20 mg 09-02 by mouth ity of tablet 18:17: 00:00 daily. [place] 03 :00 Medical Branch busPIRone 2021- No 10mg Take 10 mg U nivers 10 mg 09-02 by mouth ity of tablet 18:17: 00:00 daily. [place] 03 :00 Medical Branch GLIPIZIDE 2021- No 10mg Take 10 mg U nivers ORAL 09-02 by mouth. ity of 18:17: 00:00 [place] 03 :00 Medical Branch amLODIPine 2021- No 5mg Take 5 mg U nivers 5 mg tablet 09-02 by mouth ity of 18:17: 00:00 daily. [place] 03 :00 Medical Branch tiotropium 2021- No Inhale. Uni vers bromide 09-02 ity of (SPIRIVA 18:17: 00:00 [place] WITH 03 :00 Medical HANDIHALER Branch INHALE) magnesium 2021- No 2g 2 g, IV Univ ers sulfate in 09-02 Piggyback, it y of water 2 16:45: 16:45 ONCE, 1 [place] gram/50 mL 00 :00 dose, On Medic al (4 %) [facility] infusion 2 09/02/21 at g 1045, AILYN [...] 40 mg 1045, STAT benzonatate 0 Yes [id number] 100mg Take 1 Univers 100 mg 1-23 capsule by ity of capsule 00:00: mouth 3 00 (three) Medical times Branch daily as needed for Cough. albuterol Yes [id number] 2{puff} Inhale 2 Univers 90 1-23 Puffs ity of mcg/actuati 00:00: every 4 Naresh as on inhaler 00 (four) Medical hours as Branch needed for Wheezing or Shortness of Breath. albuterol Yes [id number] 2.5mg Inhale 3 Univers 2.5 mg /3 1-23 mL every 4 ity of mL (0.083 00:00: (four) [place] %) 00 hours. May Medical nebulizer also Branch solution nebulize one extra every 6 hours. furosemide 0 Yes [id number] 20mg Take 1 U nivers 20 mg 1-23 tablet by ity of tablet 00:00: mouth [place] 00 every Medical morning. Branch benzonatate 2021-0 Yes [id number] 100mg Take 1 Univers 100 mg 1-23 capsule by ity of capsule 00:00: mouth 3 [place] 00 (three) Medical times Branch daily as needed for Cough. albuterol 2021-0 Yes [id number] 2{puff} Inhale 2 Univers 90 1-23 Puffs ity of mcg/actuati 00:00: every 4 Naresh as on inhaler 00 (four) Medical hours as Branch needed for Wheezing or Shortness of Breath. albuterol 2021-0 Yes [id number] 2.5mg Inhale 3 Univers 2.5 mg /3 1-23 mL every 4 ity of mL (0.083 00:00: (four) [place] %) 00 hours. May Medical nebulizer also Branch solution nebulize one extra every 6 hours. furosemide 2021-0 Yes [id number] 20mg Take 1 U nivers 20 mg 1-23 tablet by ity of tablet 00:00: mouth [place] 00 every Medical morning. Branch benzonatate 2021-0 Yes [id number] 100mg Take 1 Univers 100 mg 1-23 capsule by ity of capsule 00:00: mouth 3 (three) Medical times Branch daily as needed for Cough. albuterol 2021-0 Yes [id number] 2{puff} Inhale 2 Univers 90 1-23 Puffs ity of mcg/actuati 00:00: every 4 Naresh as on inhaler 00 (four) Medical hours as Branch needed for Wheezing or Shortness of Breath. albuterol 2021-0 Yes [id number] 2.5mg Inhale 3 Univers 2.5 mg /3 1-23 mL every 4 ity of mL (0.083 00:00: (four) [place] %) 00 hours. May Medical nebulizer also Branch solution nebulize one extra every 6 hours. furosemide 2021-0 Yes [id number] 20mg Take 1 U nivers 20 mg 1-23 tablet by ity of tablet 00:00: mouth [place] 00 every Medical morning. Branch benzonatate 2021-0 Yes [id number] 100mg Take 1 Univers 100 mg 1-23 capsule by ity of capsule 00:00: mouth 3 (three) Medical times Branch daily as needed for Cough. albuterol 2021-0 Yes [id number] 2{puff} Inhale 2 Univers 90 1-23 Puffs ity of mcg/actuati 00:00: every 4 Naresh as on inhaler 00 (four) Medical hours as Branch needed for Wheezing or Shortness of Breath. albuterol 2021-0 Yes [id number] 2.5mg Inhale 3 Univers 2.5 mg /3 1-23 mL every 4 ity of mL (0.083 00:00: (four) [place] %) 00 hours. May Medical nebulizer also Branch solution nebulize one extra every 6 hours. furosemide Yes [id number] 20mg Take 1 U nivers 20 mg -23 tablet by ity of tablet 00:00: mouth [place] 00 every Medical morning. Branch predniSONE 2021- No [id number] 40mg Take 2 Univers 20 mg 1-02 09-31 tablets by ity of tablet 00:00: 05:59 mouth [place] 00 :00 daily for Medical 7 days. Branch budesonide- Yes [id number] 2{puff} Inhale 2 Univers formoterol 3-29 Puffs 2 ity of (SYMBICORT) 00:00: (two) [place] 160-4.5 00 times Medical mcg/actuati daily. Branch on inhaler budesonide- Yes [id number] 2{puff} Inhale 2 Univers formoterol 3-29 Puffs 2 ity of (SYMBICORT) 00:00: (two) [place] 160-4.5 00 times Medical mcg/actuati daily. Branch on inhaler budesonide- Yes [id number] 2{puff} Inhale 2 Univers formoterol 3-29 Puffs 2 ity of (SYMBICORT) 00:00: (two) [place] 160-4.5 00 times Medical mcg/actuati daily. Branch on inhaler budesonide- Yes [id number] 2{puff} Inhale 2 Univers formoterol 3-29 Puffs [...] Medical base)/3 mL Branch nebulizer solution ipratropium 2018- Yes 3mL Inhale 3 Un cameron -albuterol 2-26 mL every 6 ity of 0.5 mg-3 00:00: (six) [place] mg(2.5 mg 00 hours. Medical base)/3 mL Branch nebulizer solution ipratropium 2018- Yes 3mL Inhale 3 Un cameron -albuterol [...] 2021- No 1{puff} Inhale 1 Univers pratropium 2- 02-01 Puff every it y of 20-100 [...] Immunizations Ordered Filled Immunization Date Status Comments [facility] e Immunization Name Name Pneumococcal 13 2017-10-06 Completed Universit y of Conjugate, PCV13 00:00:00 [facility] dical (Prevnar 13) Branch Pneumococcal 13 2017-10-06 Completed Universit y of Conjugate, PCV13 00:00:00 [facility] dical (Prevnar 13) Branch Pneumococcal 13 2017-10-06 Completed Universit y of Conjugate, PCV13 00:00:00 [facility] dical (Prevnar 13) Branch Pneumococcal 13 2017-10-06 Completed Universit y of Conjugate, PCV13 00:00:00 [facility] dical (Prevnar 13) Branch Influenza Virus 2017-05-11 Completed Universit y of Vaccine 00:00:00 [facility] Influenza Virus 2017-05-11 Completed Universit y of Vaccine 00:00:00 [facility] Influenza Virus 2017-05-11 Completed Universit y of Vaccine 00:00:00 [facility] Influenza Virus 2017-05-11 Completed Universit y of Vaccine 00:00:00 [facility] Vital Signs Vital Name Observation Time Observation Value Comments Source Systolic blood 2021-09-11 22:27:00 126 mm[Hg] Univer sity of pressure [facility] Diastolic blood 2021-09-11 22:27:00 66 mm[Hg] Unive rsity of pressure [facility] Heart rate 2021-09-11 22:27:00 77 /min Universi ty [facility] Body temperature 2021-09-11 22:27:[address] [facility] Respiratory rate 2021-09-11 22:27:00 18 /min [facility] Oxygen saturation in 2021-09-11 22:27:00 96 /min [facility] Arterial blood by [facility] Pulse oximetry [place] Body weight 2021-09-10 10:13:00 91.627 kg Universi ty [facility] BMI 2021-09-10 10:13:00 29.83 kg/m2 [facility] [place] Body height 2021-09-02 15:19:00 175.3 cm [facility] [place] height 2020-07-31 11:30:00 69 [in_i] [facility] weight 2020-07-31 11:30:00 210.8 [lb_av] [facility] temperature 2020-07-31 11:30:00 98.3 [degF] [facility] bmi 2020-07-31 11:30:00 31.13 kg/m2 [facility] oximetry 2020-07-31 11:30:00 97 % [facility] blood pressure 2020-07-31 11:30:00 169 mm[Hg] [facility] - systolic [facility] blood pressure 2020-07-31 11:30:00 76 mm[Hg] [facility] - diastolic [facility] Procedures Procedure Date / Time Performing Clinician Source Performed EXTERNAL PROVIDER RECORDS 2022-10-09 06:01:00 Doctor Unassigned, [facility] [place] [facility] AUTHORIZATION FOR RELEASE 2021-10-11 06:01:00 Doctor Unassigned, [facility] [place] [facility] POCT GLUCOSE (AUTOMATED) 2021-09-11 17:51:00 Jere Woodward Uni versity of [facility] POCT GLUCOSE (AUTOMATED) 2021-09-11 14:11:[address] [facility] BASIC METABOLIC PANEL (NA, 2021-09-11 10:33:00 [facility], CL, CO2, GLUCOSE, BUN, Medica l Branch CREATININE, CA) CBC WITH DIFF 2021-09-11 10:33:00 Lance Solis [facility] POCT GLUCOSE (AUTOMATED) 2021-09-11 02:20:00 Jere Woodward Uni versity of [facility] POCT GLUCOSE (AUTOMATED) 2021-09-10 23:10:00 Jere Woodward Uni versity of [facility] POCT GLUCOSE (AUTOMATED) 2021-09-10 17:41:00 Jere Woodward Uni versity of [facility] POCT GLUCOSE (AUTOMATED) 2021-09-10 13:53:00 Jere Woodward Uni versity of [facility] POCT GLUCOSE (AUTOMATED) 2021-09-10 03:13:00 Jere Woodward Uni versity of [facility] POCT GLUCOSE (AUTOMATED) 2021-09-09 23:15:00 Jere Woodward Uni versity of [facility] POCT GLUCOSE (AUTOMATED) 2021-09-09 17:16:00 Jere Woodward Uni versity of [facility] POCT GLUCOSE (AUTOMATED) 2021-09-09 13:49:00 Jere Woodward [facility] BASIC METABOLIC PANEL (NA, 2021-09-09 11:00:00 Lance Solis [facility] K, CL, CO2, GLUCOSE, BUN, Medica l Branch CREATININE, CA) LIPID PANEL (78708)(TOTAL 2021-09-09 11:00:00 Katya Ayoub [facility] CHOLESTEROL, [facility] TRIGLYCERIDES, HDL) CBC WITH DIFF 2021-09-09 11:00:00 Lance Solis [facility] N-TERMINAL PRO-BNP 2021-09-09 11:00:00 Leslie Garcia [facility] POCT GLUCOSE (AUTOMATED) 2021-09-09 03:38:00 Jere Woodward Uni vers[facility] POCT GLUCOSE (AUTOMATED) 2021-09-08 23:10:00 Jere Woodward [facility] vers[facility] POCT GLUCOSE (AUTOMATED) 2021-09-08 17:41:00 Jere Woodward [facility] POCT GLUCOSE (AUTOMATED) 2021-09-08 13:46:00 Jere Woodward [facility] POCT GLUCOSE (AUTOMATED) 2021-09-08 03:01:[address] [facility]) 2021-09-07 22:41:00 Jere Woodward Uni vers[facility] POCT GLUCOSE (AUTOMATED) 2021-09-07 18:09:[address] [facility] (AUTOMATED) 2021-09-07 14:17:[address] [facility] BASIC METABOLIC PANEL (NA, 2021-09-07 11:30:00 Lance Solis [facility] K, CL, CO2, GLUCOSE, BUN, Medica l Branch CREATININE, CA) CBC WITH DIFF 2021-09-07 11:30:00 Lance Solis [facility] POCT GLUCOSE (AUTOMATED) 2021-09-07 03:00:00 Jere Woodward versity [facility] POCT GLUCOSE (AUTOMATED) 2021-09-07 01:32:00 Jere Woodward [facility] POCT GLUCOSE (AUTOMATED) 2021-09-06 22:54:00 Jere Woodward [facility] POCT GLUCOSE (AUTOMATED) 2021-09-06 17:37:00 Abdullah, Jere [facility] EXTRA TUBE URINE CULTURE 2021-09-06 14:38:00 Larry Martinez [facility] URINALYSIS MICROSCOPIC 2021-09-06 14:35:00 James Romeo [facility] CREATININE, URINE RANDOM 2021-09-06 14:35:00 James Romeo [facility] UREA NITROGEN, URINE 2021-09-06 14:35:00 James Romeo [facility] POCT GLUCOSE (AUTOMATED) 2021-09-06 13:47:00 Jere Woodward [facility] PHOSPHORUS 2021-09-06 08:42:00 Trace Jere [facility] MAGNESIUM 2021-09-06 08:42:00 Agueda [facility] TROPONIN I 2021-09-06 08:42:00 Trace [facility] BASIC METABOLIC PANEL (NA, 2021-09-06 08:42:00 James Romeo [facility] K, CL, CO2, GLUCOSE, BUN, Medica l Branch CREATININE, CA) CBC WITH DIFF 2021-09-06 08:42:00 [facility]BD[facility] AORTA SCREEN 2021-09-06 02:52:00 Lance Solis [facility] POCT GLUCOSE (AUTOMATED) 2021-09-06 02:49:00 Jere Woodward [facility] POCT GLUCOSE (AUTOMATED) 2021-09-05 22:13:00 Jere Woodward [facility] VANCOMYCIN RANDOM LEVEL 2021-09-05 22:08:00 Mahogany Rodriguez [facility] POCT GLUCOSE (AUTOMATED) 2021-09-05 17:39:00 Jere Woodward [facility] BASIC METABOLIC PANEL (NA, 2021-09-05 16:12:00 Leslie Garcia [facility] K, CL, CO2, GLUCOSE, BUN, Medica l Branch CREATININE, CA) N-TERMINAL PRO-BNP 2021-09-05 16:12:00 Jose, Qiangjun [facility] POCT GLUCOSE (AUTOMATED) 2021-09-05 13:34:00 Jere Woodward [facility] POCT GLUCOSE (AUTOMATED) 2021-09-05 02:03:00 Jere Woodward [facility] POCT GLUCOSE (AUTOMATED) 2021-09-04 23:20:00 Jere Woodward [facility] RESPIRATORY PANEL BY PCR 2021-09-04 20:58:00 Mahogany Rodriguez [facility] CT ABDOMEN PELVIS WO 2021-09-04 20:44:03 Mahogany Rodriguez [facility] POCT GLUCOSE (AUTOMATED) 2021-09-04 17:38:00 Jere Woodward [facility] MRSA / MSSA SCREEN BY PCR, 2021-09-04 16:15:00 Leanne Gannon [facility] POCT GLUCOSE (AUTOMATED) 2021-09-04 13:38:00 Jere Woodward [facility] TROPONIN I 2021-09-04 10:42:00 Monisha carolina [facility] BASIC METABOLIC PANEL (NA, 2021-09-04 10:42:00 Jere Woodward [facility] K, CL, CO2, GLUCOSE, BUN, Medica l Branch CREATININE, CA) CBC WITH DIFF 2021-09-04 10:42:00 Jere Woodward [facility] N-TERMINAL PRO-BNP 2021-09-04 10:42:00 Deborah Bearden [facility] BLOOD CULTURE SCREEN 2021-09-04 05:37:00 Deborah Bearden [facility] PROCALCITONIN 2021-09-04 05:37:00 Monisha carolina [facility] POCT GLUCOSE (AUTOMATED) 2021-09-04 02:44:00 Jere Woodward [facility] POCT GLUCOSE (AUTOMATED) 2021-09-04 01:30:00 Jere Woodward [facility] URINALYSIS 2021-09-03 22:57:00 Mirella [facility] URINE CULTURE 2021-09-03 22:57:00 Gennaro Mirella [facility] POCT GLUCOSE (AUTOMATED) 2021-09-03 22:52:00 Jere Woodward [facility] US RETROPERITONEAL 2021-09-03 17:48:51 Eunice [facility] 2021-09-03 17:27:00 Jere Woodward [facility] TRANSTHORACIC ECHO (TTE) 2021-09-03 15:58:00 Gennaro Mirella [facility] POCT GLUCOSE (AUTOMATED) 2021-09-03 14:12:00 Jere Woodward [facility] ACUTE CARE VENOUS BLOOD 2021-09-03 10:38:00 Deborah Bearden [facility] VITAMIN B12, LEVEL 2021-09-03 09:39:00 Gennaro Mirella [facility] URIC ACID 2021-09-03 09:38:00 Monsiha carolina [facility] MAGNESIUM 2021-09-03 09:38:00 Jere Woodward [facility] TROPONIN I 2021-09-03 09:38:00 Gennaro Mirella [facility] BASIC METABOLIC PANEL (NA, 2021-09-03 09:38:00 Jere Woodward [facility] K, CL, CO2, GLUCOSE, BUN, Medica l Branch CREATININE, CA) CBC WITH DIFF 2021-09-03 09:38:00 Jere Woodward [facility] N-TERMINAL PRO-BNP 2021-09-03 09:38:00 Deborah Bearden [facility] FREE T3 2021-09-03 09:38:00 Mirella [facility] PHOSPHORUS 2021-09-03 02:38:00 Jere Woodward [facility] URIC ACID 2021-09-03 02:38:00 Monisha Adnan [facility] TROPONIN I 2021-09-03 02:38:00 Mirella [facility] POCT GLUCOSE (AUTOMATED) 2021-09-02 22:48:00 Jere Woodward [facility] POCT GLUCOSE (AUTOMATED) 2021-09-02 21:32:00 Jere Woodward [facility] ACUTE CARE ARTERIAL BLOOD 2021-09-02 16:56:00 Quinn Ibarra [facility] GAS [facility] XR CHEST 1 VW 2021-09-02 16:29:28 Quinn Ibarra [facility] RAPID INFLUENZA A/B 2021-09-02 15:40:00 Quinn [facility]barra [facility] (ID NOW RAPID 2021-09-02 15:38:00 Quinn Ibarra [facility] TESTING) [facility] LAB ONLY COVID 2021-09-02 15:38:00 Quinn Ibarra [facility] INTERPRETATION [facility] BLOOD CULTURE SCREEN 2021-09-02 15:32:00 Quinn Ibarra [facility] LIPASE 2021-09-02 15:32:00 Quinn Ibarra [facility] FERRITIN SERUM 2021-09-02 15:32:00 Mirella [facility] TROPONIN I 2021-09-02 15:32:00 Quinn Ibarra [facility] FREE T4 2021-09-02 15:32:00 Gennaro Mirella [facility] THYROID STIMULATING 2021-09-02 15:32:00 Mirella Burdick Stephanie [facility] HORMONE [facility] COMP. METABOLIC PANEL 2021-09-02 15:32:00 Stacey [facility] ([id number]) [facility] IRON PANEL 2021-09-02 15:32:00 Gennaro Mirella [facility] CBC WITH DIFF 2021-09-02 15:32:00 Quinn Ibarra [facility] GLYCOSYLATED HEMOGLOBIN 2021-09-02 15:32:00 Gennaro Mirella Stephanie [facility] (A1C) [facility] PROTHROMBIN TIME / INR 2021-09-02 15:32:00 Quinn [facility]bar[facility] ACTIV[facility] PARTIAL THRMPLAS 2021-09-02 15:32:00 Quinn Ibarra [facility] N-TERMINAL PRO-BNP 2021-09-02 15:32:00 Quinn Ibarra [facility] PROCALCITONIN 2021-09-02 15:32:00 Mirella [facility] BLOOD CULTURE WORKUP 2021-09-02 15:32:[address] [facility] HB ECG ROUTINE & RHYTHM 2021-09-02 15:16:43 [facility] Start End Encounter Admission Attending Care Care Encounter Source Date/Time Date/Time Type Type Clinicians Facility Department ID 2021-09-05 Outpatient [facility] [id number] Common 12:23:38 [id number] [facility] 2021-09-05 [facility] [id number] Common 12:15:10 [id number] [facility] 2022-10-24 2022-10-24 Outpatient Nicolette [facility] [id number] Univers 16:30:00 16:30:00 [facility] 2022-10-10 2022-10-10 Outpatient Nicolette [facility] [id number] Univers 16:30:00 16:30:00 [facility] 2022-10-09 2022-10-09 Orders Doctor HANNAH Vincent2.840.114 [id number] Univers 00:00:00 00:00:00 Only Unassigned, CLAIR [id number] [place]y [place] [facility] 4.2.7.2.686 Naresh as [phone] [address] 2022-07-22 2022-07-22 Outpatient Twin MARTINEZ [facility] [id number] 13:59:00 23:59:00 [facility] 2021-10-11 2021-10-11 Orders Doctor HANNAH Vincent2.840.114 [id number] Univers 00:00:00 00:00:00 Only Unassigned, CLAIR [id number] ity of [place] [facility] 4.2.7.2.686 Naresh as [phone] [facility] [address] Branch 2021-09-12 2021-09-12 Transition [facility] [id number] Univers 00:00:00 00:00:00 of Care Hemanth AMAYA [id number] [place] [phone] [facility] [address] Branch 2021-09-02 2021-09-11 Inpatient X [facility] [id number] Univers 09:15:00 18:12:00 JERE [facility]y of [facility] 2021-09-02 2021-09-11 [facility] Quinn Ibarra [facility] 1.2.840 .[id number] Univers 09:15:00 18:12:00 Encounter Jere Woodward [facility] 350.1.13.10 [place] [phone] [facility] 081 Branch 2020-08-02 2020-08-02 (TEL) STLMLC STLMLC [id number] Co mmon 00:00:00 00:00:00 [facility] 2020-07-31 2020-07-31 OFFICE STLMLC STLMLC [id number] Co mmon 00:00:00 00:00:00 VISIT [facility] it PT LEVEL 4 [facility] Results Test Description Test Time Test Comments Results Result [facility] e Comments NM LUNG (V/Q ) 2022-07-22 SCAN W ISOTOPE 15:46:51 [facility] : 1945 Sex: M Radio nuclide perfusion lung scanLocation Code: [id number]: Pulmonary embolus with shortness of breathCOMPARISON: Chest [...] by: Axel Gupta MD 07/22/2022 3:46 PM MASSOTHERAPIST XR CHEST 1 VIEW 2022-07-22 PORTABLE 15:45:57 [facility] : 1945 Sex: M [...] by: Bienvenido Cuenca MD 07/22/2022 3:45 PM MASSOTHERAPIST POCT GLUCOSE (AUTOMATED) 2021-09-11 17:56:19 Test Item Value Reference Range Interpretation Comme nts POCT GLU (test code = 0470925545) 143 mg/dL 70-110 H Lab Interpretation (test code = 56411-7) Abnormal [facility] GLUCOSE (AUTOMATED)2021-09-11 14:31:01 Test Item Value Reference Range Interpretation Comments POCT GLU (test code = 7825741494) 140 mg/dL 70-110 H Lab Interpretation (test code = Abnormal 34684-1) [facility] METABOLIC PANEL (NA, K, CL, CO2, GLUCOSE, BUN, CREATININE, CA)2021-09-11 11:27:07 Test Item Value Reference Range Interpretation Comments NA (test code = 142 mmol/L 135-145 9928630438) K (test code = 4.7 mmol/L 3.5-5.0 0004378314) CL (test code = 116 mmol/L 98-108 H 4693290608) CO2 TOTAL (test code = 21 mmol/L 23-31 L 7252076728) AGAP (test code = 2-16 0151226208) BUN (test code = 53 mg/dL 7-23 H 3129431846) GLUCOSE (test code = 126 mg/dL 70-110 H 9338164219) CREATININE (test code = 2.92 mg/dL 0.60-1.25 H 9105944645) CALCIUM (test code = 8.8 mg/dL 8.6-10.6 1726618240) eGFR (test code = mL/min/1.73m2 6298683885) RADHA (test code = RADHA) Association of [...] tests). Lab Interpretation Abnormal (test code = 59270-3) [facility] WITH [id number] 11:10:42 Test Item Value Reference Range Interpretation Comments WBC (test code = See_Comment [Automated 2490-2) message] The sy stem which generated this [...] (test code = 52.9 fL 38.5-51.6 H 47181-4) RDW-CV (test code = 15.3 % 12.1-15.4 788-0) PLT (test code = See_Comment [Automated 777-3) message] The sy stem which generated this result transmitted reference range : 150 - 328 10*3/ ?L. The reference r hilary was not used to interpret this result as normal/abnormal . MPV (test code = 10.4 fL 9.8-13.0 37558-6) NRBC/100 WBC (test See_Comment [Automat ed code = 1764132051) message] The system which generated this result transmitted reference range : 0.0 - 10.0 /100 WBCs. The refer ence range was not u sed to interpret th is result as normal/abnormal . NRBC x10^3 (test code <0.01 See_Comment [Auto mated = 6931648175) message] The s ystem which generated this result transmitted reference range : 10*3/?L. The reference range was not used to interpret this result as normal/abnormal . GRAN MAT (NEUT) % 77.5 % (test code = 770-8) IMM GRAN % (test code 0.50 % = 5499897907) LYMPH % (test code = 15.6 % 736-9) MONO % (test code = 5.5 % 5905-5) EOS % (test code = 0.9 % 713-8) BASO % (test code = 0.0 % 706-2) GRAN MAT x10^3(ANC) 4.93 10*3/uL 1.99-6.95 (test code = 2038368336) IMM GRAN x10^3 (test 0.03 10*3/uL 0.00-0.06 code = 5933363349) LYMPH x10^3 (test code 0.99 10*3/uL 1.09-3.23 L = 731-0) MONO x10^3 (test code 0.35 10*3/uL 0.36-1.02 L = 742-7) EOS x10^3 (test code = 0.06 10*3/uL 0.06-0.53 711-2) BASO x10^3 (test code <0.03 0.01-0.09 = 704-7) Lab Interpretation Abnormal (test code = 32682-6) [facility] GLUCOSE (AUTOMATED)2021-09-11 02:38:30 Test Item Value Reference Range Interpretation Comments POCT GLU (test code = 9494481751) 195 mg/dL 70-110 H Lab Interpretation (test code = Abnormal 44747-9) [facility] GLUCOSE (AUTOMATED)2021-09-10 23:44:28 Test Item Value Reference Range Interpretation Comments POCT GLU (test code = 5539543079) 147 mg/dL 70-110 H Lab Interpretation (test code = Abnormal 35853-4) [facility] GLUCOSE (AUTOMATED)2021-09-10 18:03:55 Test Item Value Reference Range Interpretation Comments POCT GLU (test code = 2007486682) 162 mg/dL 70-110 H Lab Interpretation (test code = Abnormal 72464-5) [facility]TOTAL CHOLESTEROL, TRIGLYCERIDES, HDL)2021-09-10 16:55:36 Test Item Value Reference Range Interpretation Comments CHOL (test code = 93 mg/dL 120-200 L 9773991220) HDL (test code = 56 mg/dL >40 7254852266) HDLC RATIO (test code = See_Comment [Au tomated message] 6370946369) The system [employer] generated this result transmitted ref erence range: <=5.0. T he reference range was not used to int erpret this result as normal/abnormal . TRIG (test code = 85 mg/dL 30-170 4658167093) LDL CHOL (test code = 20 mg/dL See_Comment [Auto mated message] 48178-6) The system [employer] generated this result transmitted ref erence range: <=160. T he reference range was not used to int erpret this result as normal/abnormal . VLDL (test code = 17 mg/dL 5-60 4141496626) Lab Interpretation (test Abnormal code = 45777-3) [facility] GLUCOSE (AUTOMATED)2021-09-10 14:34:31 Test Item Value Reference Range Interpretation Comments POCT GLU (test code = 9517457078) 150 mg/dL 70-110 H Lab Interpretation (test code = Abnormal 96464-2) [facility] GLUCOSE (AUTOMATED)2021-09-10 03:18:02 Test Item Value Reference Range Interpretation Comments POCT GLU (test code = 1420896771) 163 mg/dL 70-110 H Lab Interpretation (test code = Abnormal 22540-0) [facility] GLUCOSE (AUTOMATED)2021-09-09 23:22:00 Test Item Value Reference Range Interpretation Comments POCT GLU (test code = 8983121225) 153 mg/dL 70-110 H Lab Interpretation (test code = Abnormal 14124-7) [id number] 20:42:21 Test Item Value Reference Range Interpretation Comments NT-proBNP (test code 3860 pg/mL See_Comment H [Autom ated = 8369626218) message] The system which generated this result transmitted reference range : <=450. The reference range was not used to interpret this result as normal/abnormal . RADHA (test code = RADHA) Biotin has been reported to cause a negative bias, interpret results relative to patient's use of biotin. Lab Interpretation Abnormal (test code = 91971-5) [facility] GLUCOSE (AUTOMATED)2021-09-09 17:29:37 Test Item Value Reference Range Interpretation Comments POCT GLU (test code = 8203080488) 121 mg/dL 70-110 H Lab Interpretation (test code = Abnormal 98933-0) [facility] GLUCOSE (AUTOMATED)2021-09-09 13:54:41 Test Item Value Reference Range Interpretation Comments POCT GLU (test code = 6107905061) 118 mg/dL 70-110 H Lab Interpretation (test code = Abnormal 94896-2) [facility] (NA, K, CL, CO2, GLUCOSE, BUN, CREATININE, CA)2021-09-09 13:01:38 Test Item Value Reference Range Interpretation Comments NA (test code = 141 mmol/L 135-145 0213409703) K (test code = 4.7 mmol/L 3.5-5.0 6352694730) CL (test code = 115 mmol/L 98-108 H 9269588369) CO2 TOTAL (test code = 22 mmol/L 23-31 L 3211315723) AGAP (test code = 2-16 5218033324) BUN (test code = 59 mg/dL 7-23 H 9233788801) GLUCOSE (test code = 114 mg/dL 70-110 H 4301032453) CREATININE (test code = 3.09 mg/dL 0.60-1.25 H 1452895561) CALCIUM (test code = 8.9 mg/dL 8.6-10.6 5721976199) eGFR (test code = mL/min/1.73m2 4389785667) RADHA (test code = RADHA) Association of [...] tests). Lab Interpretation Abnormal (test code = 06214-6) [facility] WITH [id number] 12:42:15 Test Item Value Reference Range Interpretation Comments WBC (test code = See_Comment [Automated 7113-2) message] The sy stem which generated this result transmitted reference range : 4.20 - 10.70 10*3/?L. The reference range was not used to interpret this result as normal/abnormal . RBC (test code = See_Comment L [Automated 289-8) message] The sy stem which generated this [...] (test code = 52.5 fL 38.5-51.6 H 55763-0) RDW-CV (test code = 15.1 % 12.1-15.4 788-0) PLT (test code = See_Comment [Automated 777-3) message] The sy stem which generated this result transmitted reference range : 150 - 328 10*3/ ?L. The reference r hilary was not used to interpret this result as normal/abnormal . MPV (test code = 10.5 fL 9.8-13.0 20748-3) NRBC/100 WBC (test See_Comment [Automat ed code = 5419972769) message] The system which generated this result transmitted reference range : 0.0 - 10.0 /100 WBCs. The refer ence range was not u sed to interpret th is result as normal/abnormal . NRBC x10^3 (test code <0.01 See_Comment [Auto mated = 2709857686) message] The s ystem which generated this result transmitted reference range : 10*3/?L. The reference range was not used to interpret this result as normal/abnormal . GRAN MAT (NEUT) % 81.8 % (test code = 770-8) IMM GRAN % (test code 0.50 % = 2067538947) LYMPH % (test code = 13.0 % 736-9) MONO % (test code = 4.3 % 5905-5) EOS % (test code = 0.4 % 713-8) BASO % (test code = 0.0 % 706-2) GRAN MAT x10^3(ANC) 6.71 10*3/uL 1.99-6.95 (test code = 5207890298) IMM GRAN x10^3 (test 0.04 10*3/uL 0.00-0.06 code = 7761764023) LYMPH x10^3 (test code 1.07 10*3/uL 1.09-3.23 L = 731-0) MONO x10^3 (test code 0.35 10*3/uL 0.36-1.02 L = 742-7) EOS x10^3 (test code = 0.03 10*3/uL 0.06-0.53 L 711-2) BASO x10^3 (test code <0.03 0.01-0.09 = 704-7) Lab Interpretation Abnormal (test code = 31153-1) [facility] CULTURE [id number] 06:01:53 Test Item Value Reference Range Interpretation Comments Blood Culture-Aerobic No organisms No growth Previo us (test code = 86356-7) isolated prelim inary verified result was Culture In Progress on 09/04/2021 at 03 01 CSTPrevious preliminary verified result was No growth a t 24 hours on 09/05/2021 at 00 01 CSTPrevious preliminary verified result was No growth a t 48 hours on 09/06/2021 at 00 01 CSTPrevious preliminary verified result was No growth a t 72 hours on 09/07/2021 at 00 01 MASSOTHERAPIST Blood No organisms No growth Previous Culture-Anaerobic isolated preliminar y (test code = 75576-3) verifi ed result was Culture In Progress on 09/04/2021 at 03 01 CSTPrevious preliminary verified result was No growth a t 24 hours on 09/05/2021 at 00 01 CSTPrevious preliminary verified result was No growth a t 48 hours on 09/06/2021 at 00 01 CSTPrevious preliminary verified result was No growth a t 72 hours on 09/07/2021 at 00 01 MASSOTHERAPIST Lab Interpretation Normal (test code = 90137-9) [facility] CULTURE [id number] 06:01:53 Test Item Value Reference Range Interpretation Comments Blood Culture-Aerobic No organisms No growth Previo us (test code = 63183-4) isolated prelim inary verified result was Culture In Progress on 09/04/2021 at 03 01 CSTPrevious preliminary verified result was No growth a t 24 hours on 09/05/2021 at 00 01 CSTPrevious preliminary verified result was No growth a t 48 hours on 09/06/2021 at 00 01 CSTPrevious preliminary verified result was No growth a t 72 hours on 09/07/2021 at 00 01 MASSOTHERAPIST Blood No organisms No growth Previous Culture-Anaerobic isolated preliminar y (test code = 69034-4) verifi ed result was Culture In Progress on 09/04/2021 at 03 01 CSTPrevious preliminary verified result was No growth a t 24 hours on 09/05/2021 at 00 01 CSTPrevious preliminary verified result was No growth a t 48 hours on 09/06/2021 at 00 01 CSTPrevious preliminary verified result was No growth a t 72 hours on 09/07/2021 at 00 01 MASSOTHERAPIST Lab Interpretation Normal (test code = 95147-1) [facility] GLUCOSE (AUTOMATED)2021-09-09 03:41:10 Test Item Value Reference Range Interpretation Comments POCT GLU (test code = 0049480134) 196 mg/dL 70-110 H Lab Interpretation (test code = Abnormal 06975-1) [facility] GLUCOSE (AUTOMATED)2021-09-08 23:12:05 Test Item Value Reference Range Interpretation Comments POCT GLU (test code = 7061660128) 138 mg/dL 70-110 H Lab Interpretation (test code = Abnormal 77333-9) [facility] GLUCOSE (AUTOMATED)2021-09-08 17:46:12 Test Item Value Reference Range Interpretation Comments POCT GLU (test code = 1908240433) 181 mg/dL 70-110 H Lab Interpretation (test code = Abnormal 30860-4) [facility] GLUCOSE (AUTOMATED)2021-09-08 13:53:55 Test Item Value Reference Range Interpretation Comments POCT GLU (test code = 5391821738) 179 mg/dL 70-110 H Lab Interpretation (test code = Abnormal 38742-4) [facility] GLUCOSE (AUTOMATED)2021-09-08 03:04:37 Test Item Value Reference Range Interpretation Comments POCT GLU (test code = 1990338290) 241 mg/dL 70-110 H Lab Interpretation (test code = Abnormal 81988-1) [facility] GLUCOSE (AUTOMATED)2021-09-07 23:44:53 Test Item Value Reference Range Interpretation Comments POCT GLU (test code = 2361072883) 268 mg/dL 70-110 H Lab Interpretation (test code = Abnormal 02797-6) [facility] GLUCOSE (AUTOMATED)2021-09-07 19:18:14 Test Item Value Reference Range Interpretation Comments POCT GLU (test code = 3073458692) 208 mg/dL 70-110 H Lab Interpretation (test code = Abnormal 60086-9) [facility] # [id number] 16:02:10 Test Item Value Reference Range Interpretation Comments Blood Culture-Aerobic No organisms No growth Previo us (test code = 45004-4) isolated prelim inary verified result was Culture In Progress on 09/02/2021 at 13 02 CSTPrevious preliminary verified result was No growth a t 24 hours on 09/03/2021 at 10 01 CSTPrevious preliminary verified result was No growth a t 48 hours on 09/04/2021 at 10 01 CSTPrevious preliminary verified result was No growth a t 72 hours on 09/05/2021 at 10 01 MASSOTHERAPIST Blood No organisms No growth Previous Culture-Anaerobic isolated preliminar y (test code = 43973-1) verifi ed result was Culture In Progress on 09/02/2021 at 13 02 CSTPrevious preliminary verified result was No growth a t 24 hours on 09/03/2021 at 10 01 CSTPrevious preliminary verified result was No growth a t 48 hours on 09/04/2021 at 10 01 CSTPrevious preliminary verified result was No growth a t 72 hours on 09/05/2021 at 10 01 MASSOTHERAPIST Lab Interpretation Normal (test code = 82670-8) [facility] GLUCOSE (AUTOMATED)2021-09-07 15:05:58 Test Item Value Reference Range Interpretation Comments POCT GLU (test code = 1619103865) 158 mg/dL 70-110 H Lab Interpretation (test code = Abnormal 53730-3) [facility] (NA, K, CL, CO2, GLUCOSE, BUN, CREATININE, CA)2021-09-07 12:31:00 Test Item Value Reference Range Interpretation Comments NA (test code = 140 mmol/L 135-145 5832042681) K (test code = 4.9 mmol/L 3.5-5.0 0371742042) CL (test code = 113 mmol/L 98-108 H 0679914479) CO2 TOTAL (test code = 22 mmol/L 23-31 L 9558922653) AGAP (test code = 2-16 6219273899) BUN (test code = 51 mg/dL 7-23 H 1470285000) GLUCOSE (test code = 179 mg/dL 70-110 H 8466149355) CREATININE (test code = 2.98 mg/dL 0.60-1.25 H 0325549951) CALCIUM (test code = 9.0 mg/dL 8.6-10.6 3460345235) eGFR (test code = mL/min/1.73m2 6698674731) RADHA (test code = RADHA) Association of [...] tests). Lab Interpretation Abnormal (test code = 19488-8) [facility] WITH [id number] 12:23:57 Test Item Value Reference Range Interpretation [...] (test code = 51.8 fL 38.5-51.6 H 92764-8) RDW-CV (test code = 14.9 % 12.1-15.4 788-0) PLT (test code = See_Comment [Automated 777-3) message] The sy stem which generated this result transmitted reference range : 150 - 328 10*3/ ?L. The reference r hilary was not used to interpret this result as normal/abnormal . MPV (test code = 10.1 fL 9.8-13.0 43003-6) NRBC/100 WBC (test See_Comment [Automat ed code = 6376274998) message] The system which generated this result transmitted reference range : 0.0 - 10.0 /100 WBCs. The refer ence range was not u sed to interpret th is result as normal/abnormal . NRBC x10^3 (test code <0.01 See_Comment [Auto mated = 9779065646) message] The s ystem which generated this result transmitted reference range : 10*3/?L. The reference range was not used to interpret this result as normal/abnormal . GRAN MAT (NEUT) % 88.6 % (test code = 770-8) IMM GRAN % (test code 0.40 % = 9432444969) LYMPH % (test code = 7.1 % 736-9) MONO % (test code = 3.8 % 5905-5) EOS % (test code = 0.0 % 713-8) BASO % (test code = 0.1 % 706-2) GRAN MAT x10^3(ANC) 6.02 10*3/uL 1.99-6.95 (test code = 5282671419) IMM GRAN x10^3 (test 0.03 10*3/uL 0.00-0.06 code = 4244955029) LYMPH x10^3 (test code 0.48 10*3/uL 1.09-3.23 L = 731-0) MONO x10^3 (test code 0.26 10*3/uL 0.36-1.02 L = 742-7) EOS x10^3 (test code = <0.03 0.06-0.53 L 711-2) BASO x10^3 (test code <0.03 0.01-0.09 = 704-7) Lab Interpretation Abnormal (test code = 79989-6) [facility] GLUCOSE (AUTOMATED)2021-09-07 03:05:46 Test Item Value Reference Range Interpretation Comments POCT GLU (test code = 2893704044) 235 mg/dL 70-110 H Lab Interpretation (test code = Abnormal 92261-2) [facility] GLUCOSE (AUTOMATED)2021-09-07 01:42:32 Test Item Value Reference Range Interpretation Comments POCT GLU (test code = 1144991492) 291 mg/dL 70-110 H Lab Interpretation (test code = Abnormal 09438-8) [facility] GLUCOSE (AUTOMATED)2021-09-06 22:58:03 Test Item Value Reference Range Interpretation Comments POCT GLU (test code = 4451012770) 291 mg/dL 70-110 H Lab Interpretation (test code = Abnormal 23240-4) [facility] GLUCOSE (AUTOMATED)2021-09-06 17:52:21 Test Item Value Reference Range Interpretation Comments POCT GLU (test code = 3283278631) 185 mg/dL 70-110 H Lab Interpretation (test code = Abnormal 88606-6) [facility] GLUCOSE (AUTOMATED)2021-09-06 14:03:24 Test Item Value Reference Range Interpretation Comments POCT GLU (test code = 5694421478) 131 mg/dL 70-110 H Lab Interpretation (test code = Abnormal 65650-2) [facility] WITH [id number] 09:20:33 Test Item Value Reference Range Interpretation [...] (test code = 53.1 fL 38.5-51.6 H 04360-6) RDW-CV (test code = 15.1 % 12.1-15.4 788-0) PLT (test code = See_Comment [Automated 777-3) message] The sy stem which generated this result transmitted reference range : 150 - 328 10*3/ ?L. The reference r hilary was not used to interpret this result as normal/abnormal . MPV (test code = 10.0 fL 9.8-13.0 46732-9) NRBC/100 WBC (test See_Comment [Automat ed code = 4075825428) message] The system which generated this result transmitted reference range : 0.0 - 10.0 /100 WBCs. The refer ence range was not u sed to interpret th is result as normal/abnormal . NRBC x10^3 (test code <0.01 See_Comment [Auto mated = 8919986473) message] The s [employer] which generated this result transmitted reference range : 10*3/?L. The reference range was not used to interpret this result as normal/abnormal . GRAN MAT (NEUT) % 85.6 % (test code = 770-8) IMM GRAN % (test code 0.70 % = 9503940295) LYMPH % (test code = 8.9 % 736-9) MONO % (test code = 4.7 % 5905-5) EOS % (test code = 0.0 % 713-8) BASO % (test code = 0.1 % 706-2) GRAN MAT x10^3(ANC) 6.55 10*3/uL 1.99-6.95 (test code = 5382781352) IMM GRAN x10^3 (test 0.05 10*3/uL 0.00-0.06 code = 3330973236) LYMPH x10^3 (test code 0.68 10*3/uL 1.09-3.23 L = 731-0) MONO x10^3 (test code 0.36 10*3/uL 0.36-1.02 = 742-7) EOS x10^3 (test code = <0.03 0.06-0.53 L 711-2) BASO x10^3 (test code <0.03 0.01-0.09 = 704-7) Lab Interpretation Abnormal (test code = 62927-4) [facility] HospitalCUBAPRIS[facility] HOSPITALDIMAS [id number] 09:14:11 Test Item Value Reference Interpretation Comments Range TROPONIN I (test 0.061 ng/mL See_Comment H [Automated code = 3086409426) message] The system which generated this result [...] biotin. Lab Interpretation Abnormal (test code = 53494-2) [facility] HospitalMAGNESIUM2022-01-27 09:02:46 Test Item Value Reference Range Interpretation Comments MAGNESIUM (test code = 5120229492) 2.0 mg/dL 1.7-2.4 Lab Interpretation (test code = Normal 12306-2) [facility] (NA, K, CL, CO2, GLUCOSE, BUN, CREATININE, CA)2021-09-06 09:02:26 Test Item Value Reference Range Interpretation Comments NA (test code = 138 mmol/L 135-145 2612538570) K (test code = 5.2 mmol/L 3.5-5.0 H 7163235782) CL (test code = 112 mmol/L 98-108 H 3518257250) CO2 TOTAL (test code = 21 mmol/L 23-31 L 4843322976) AGAP (test code = 2-16 4595053771) BUN (test code = 51 mg/dL 7-23 H 7676032623) GLUCOSE (test code = 137 mg/dL 70-110 H 7194509058) CREATININE (test code = 3.15 mg/dL 0.60-1.25 H 1764370387) CALCIUM (test code = 9.1 mg/dL 8.6-10.6 7283934701) eGFR (test code = mL/min/1.73m2 7641104477) RADHA (test code = RADHA) Association of [...] tests). Lab Interpretation Abnormal (test code = 89157-8) [facility]PHOSPHORUS2022-01-27 09:02:26 Test Item Value Reference Range Interpretation Comments PHOSPHORUS (test code = 6329695715) 3.4 mg/dL 2.5-5.0 Lab Interpretation (test code = Normal 65091-5) [facility] GLUCOSE (AUTOMATED)2021-09-06 02:58:54 Test Item Value Reference Range Interpretation Comments POCT GLU (test code = 1253709940) 229 mg/dL 70-110 H Lab Interpretation (test code = Abnormal 31868-9) [facility] HospitalVancomycin Random [id number] 23:36:47 Test Item Value Reference Range Interpretation Comments VANCO RANDOM (test code = 7.6 ug/mL 6027987633) [facility] GLUCOSE (AUTOMATED)2021-09-05 22:23:59 Test Item Value Reference Range Interpretation Comments POCT GLU (test code = 6842638385) 307 mg/dL 70-110 H Lab Interpretation (test code = Abnormal 77575-2) [facility] GLUCOSE (AUTOMATED)2021-09-05 17:43:53 Test Item Value Reference Range Interpretation Comments POCT GLU (test code = 9918218040) 133 mg/dL 70-110 H Lab Interpretation (test code = Abnormal 03631-0) [facility] HospitalN-TERMINAL [id number] 17:02:17 Test Item Value Reference Range Interpretation Comments NT-proBNP (test code 4570 pg/mL See_Comment H [Autom ated = 6256589181) message] The system which generated this result transmitted reference range : <=450. The reference range was not used to interpret this result as normal/abnormal . RADHA (test code = RADHA) Biotin has been reported to cause a negative bias, interpret results relative to patient's use of biotin. Lab Interpretation Abnormal (test code = 80626-2) [facility] METABOLIC PANEL (NA, K, CL, CO2, GLUCOSE, BUN, CREATININE, CA)2021-09-05 16:53:35 Test Item Value Reference Range Interpretation Comments NA (test code = 138 mmol/L 135-145 7144107918) K (test code = 4.8 mmol/L 3.5-5.0 3450881517) CL (test code = 110 mmol/L 98-108 H 2482561292) CO2 TOTAL (test code = 23 mmol/L 23-31 2463865497) AGAP (test code = 2-16 6573116558) BUN (test code = 50 mg/dL 7-23 H 1009933830) GLUCOSE (test code = 106 mg/dL 70-110 6211150683) CREATININE (test code = 3.36 mg/dL 0.60-1.25 H 8948565049) CALCIUM (test code = 8.9 mg/dL 8.6-10.6 9711934300) eGFR (test code = mL/min/1.73m2 3496153366) RADHA (test code = RADHA) Association of [...] tests). Lab Interpretation Abnormal (test code = 22946-4) [facility] Culture - Peripheral # [id number] 15:16:24 Test Item Value Reference Range Interpretation Comments Blood Culture-Aerobic No organisms No growth Previo us (test code = 48600-3) isolated prelim inary verified result was Culture In Progress on 09/02/2021 at 13 02 CSTPrevious preliminary verified result was No growth a t 24 hours on 09/03/2021 at 22 13 MASSOTHERAPIST Blood Culture positive. No growth AA Previous Culture-Anaerobic See Blood Culture preli minary (test code = 18047-9) Workup for verifi ed result additional was Culture In information. Progress on 09/02/2021 at 13 02 CSTPrevious preliminary verified result was No growth a t 24 hours on 09/03/2021 at 10 01 MASSOTHERAPIST Lab Interpretation Abnormal (test code = 32821-2) [facility] GLUCOSE (AUTOMATED)2021-09-05 13:47:13 Test Item Value Reference Range Interpretation Comments POCT GLU (test code = 8738323673) 116 mg/dL 70-110 H Lab Interpretation (test code = Abnormal 38710-5) [facility] GLUCOSE (AUTOMATED)2021-09-05 02:37:48 Test Item Value Reference Range Interpretation Comments POCT GLU (test code = 0940655954) 238 mg/dL 70-110 H Lab Interpretation (test code = Abnormal 23423-6) [facility] GLUCOSE (AUTOMATED)2021-09-04 23:23:12 Test Item Value Reference Range Interpretation Comments POCT GLU (test code = 7225034301) 211 mg/dL 70-110 H Lab Interpretation (test code = Abnormal 65232-8) [facility]PROCALCITONIN2022-01-25 18:15:57 Test Item Value Reference Range Interpretation Comments Procalcitonin (test 0.11 ng/mL <0.07 H code = 0205439548) RADHA (test code = RADHA) INTERPRETATION OF [...] lung abscess/empyema. For further information please refer to:[email or web address] Lab Interpretation Abnormal (test code = 26789-3) [facility] GLUCOSE (AUTOMATED)2021-09-04 17:52:04 Test Item Value Reference Range Interpretation Comments POCT GLU (test code = 6378335284) 182 mg/dL 70-110 H Lab Interpretation (test code = Abnormal 21784-2) [facility] GLUCOSE (AUTOMATED)2021-09-04 13:47:06 Test Item Value Reference Range Interpretation Comments POCT GLU (test code = 7043091360) 170 mg/dL 70-110 H Lab Interpretation (test code = Abnormal 94787-3) [facility] HospitalTROPONIN [id number] 12:23:39 Test Item Value Reference Interpretation Comments Range TROPONIN I (test 0.046 ng/mL See_Comment H [Automated code = 4440702010) message] The system which generated this result [...] biotin. Lab Interpretation Abnormal (test code = 96809-4) [facility] HospitalN-TERMINAL [id number] 12:20:23 Test Item Value Reference Range Interpretation Comments NT-proBNP (test code 6500 pg/mL See_Comment H [Autom ated = 7256342526) message] The system which generated this result transmitted reference range : <=450. The reference range was not used to interpret this result as normal/abnormal . RADHA (test code = RADHA) Biotin has been reported to cause a negative bias, interpret results relative to patient's use of biotin. Lab Interpretation Abnormal (test code = 96565-3) [facility] (NA, K, CL, CO2, GLUCOSE, BUN, CREATININE, CA)2021-09-04 12:12:37 Test Item Value Reference Range Interpretation Comments NA (test code = 137 mmol/L 135-145 6361152419) K (test code = 5.0 mmol/L 3.5-5.0 0249021563) CL (test code = 109 mmol/L 98-108 H 6991343440) CO2 TOTAL (test code = 21 mmol/L 23-31 L 3490074836) AGAP (test code = 2-16 7603440566) BUN (test code = 47 mg/dL 7-23 H 8459233972) GLUCOSE (test code = 192 mg/dL 70-110 H 5169706268) CREATININE (test code = 3.30 mg/dL 0.60-1.25 H 7484353096) CALCIUM (test code = 8.6 mg/dL 8.6-10.6 1977798967) eGFR (test code = mL/min/1.73m2 6464779419) RADHA (test code = RADHA) Association of [...] tests). Lab Interpretation Abnormal (test code = 36420-0) [facility] WITH [id number] 12:02:38 Test Item Value Reference Range Interpretation Comments WBC (test code = See_Comment H [Automated 5890-2) message] The system which generated this result transmit jose reference range : 4.20 - 10.70 10*3/?L. The reference range was not used to interpret this result as normal/abnormal . RBC (test code = See_Comment L [Automated 319-8) message] The system which generated this result [...] (test code = 53.5 fL 38.5-51.6 H 98678-8) RDW-CV (test code = 15.4 % 12.1-15.4 788-0) PLT (test code = See_Comment [Automated 777-3) message] The system which generated this result transmit jose reference range : 150 - 328 10*3/ ?L. The reference range was not u sed to interpret th is result as normal/abnormal . MPV (test code = 10.5 fL 9.8-13.0 13947-8) NRBC/100 WBC (test See_Comment [Automat ed code = 1028397268) message] The system which generated this result transmit jose reference range : 0.0 - 10.0 /100 WBCs. The reference range was not used to interpret this result as normal/abnormal . NRBC x10^3 (test code <0.01 See_Comment [Auto mated = 8092387616) message] The system which generated this result transmit jose reference range : 10*3/?L. The reference range was not used to interpret this result as normal/abnormal . GRAN MAT (NEUT) % 90.0 % (test code = 770-8) IMM GRAN % (test code 0.60 % = 1364547375) LYMPH % (test code = 5.0 % 736-9) MONO % (test code = 4.3 % 5905-5) EOS % (test code = 0.0 % 713-8) BASO % (test code = 0.1 % 706-2) GRAN MAT x10^3(ANC) 10.53 10*3/uL 1.99-6.95 H (test code = 1580922285) IMM GRAN x10^3 (test 0.07 10*3/uL 0.00-0.06 H code = 9839598033) LYMPH x10^3 (test code 0.58 10*3/uL 1.09-3.23 L = 731-0) MONO x10^3 (test code 0.50 10*3/uL 0.36-1.02 = 742-7) EOS x10^3 (test code = <0.03 0.06-0.53 L 711-2) BASO x10^3 (test code <0.03 0.01-0.09 = 704-7) Lab Interpretation Abnormal (test code = 48711-1) [facility] GLUCOSE (AUTOMATED)2021-09-04 11:55:48 Test Item Value Reference Range Interpretation Comments POCT GLU (test code = 8806010358) 189 mg/dL 70-110 H Lab Interpretation (test code = Abnormal 26204-8) [facility] GLUCOSE (AUTOMATED)2021-09-04 01:41:45 Test Item Value Reference Range Interpretation Comments POCT GLU (test code = 5875595659) 166 mg/dL 70-110 H Lab Interpretation (test code = Abnormal 09865-9) [facility] HospitalVITAMIN B12, [id number] 23:08:05 Test Item Value Reference Range Interpretation Comments VIT B12 (test code = >1000 240-930 H 9220270008) RADHA (test code = RADHA) Biotin has been reported to cause a positive bias, interpret results relative to patient's use of biotin. Lab Interpretation (test Abnormal code = 63853-1) [facility] GLUCOSE (AUTOMATED)2021-09-03 22:54:51 Test Item Value Reference Range Interpretation Comments POCT GLU (test code = 0086470385) 229 mg/dL 70-110 H Lab Interpretation (test code = Abnormal 73498-9) [facility] [id number] 17:34:51 Test Item Value Reference Range Interpretation Comments FREE T3 (test code = 3747074106) 2.41 pg/mL 2.77-5.27 L Lab Interpretation (test code = Abnormal 54572-4) [facility] GLUCOSE (AUTOMATED)2021-09-03 17:31:09 Test Item Value Reference Range Interpretation Comments POCT GLU (test code = 8831468383) 246 mg/dL 70-110 H Lab Interpretation (test code = Abnormal 82557-0) [facility] [id number] 17:00:47 Test Item Value Reference Range Interpretation Comments FREE T4 (test code = See_Comment [Autom ated message] 6326153396) The system [employer] generated this result transmitted ref erence range: 0.78 - 2 .20 ng/dL:. The ref erence range was not u sed to interpret this result as normal/abnor mal. Lab Interpretation (test Normal code = 92447-1) [facility]2021-[facility] 14:17:24 Test Item Value Reference Range Interpretation Comments POCT GLU (test code = 3525289467) 232 mg/dL 70-110 H Lab Interpretation (test code = Abnormal 26291-0) [facility]TROP[facility]IN [id number] 11:01:15 Test Item Value Reference Interpretation Comments Range TROPONIN I (test 0.035 ng/mL See_Comment H [Automated code = 3836947305) message] The system which generated this result [...] biotin. Lab Interpretation Abnormal (test code = 36723-4) [facility]AL [id number] 10:58:19 Test Item Value Reference Range Interpretation Comments NT-proBNP (test code 3920 pg/mL See_Comment H [Autom ated = 6848151120) message] The system which generated this result transmitted reference range : <=450. The reference range was not used to interpret this result as normal/abnormal . RADHA (test code = RADHA) Biotin has been reported to cause a negative bias, interpret results relative to patient's use of biotin. Lab Interpretation Abnormal (test code = 97761-1) [facility] HospitalMagnesium [id number] 10:50:15 Test Item Value Reference Range Interpretation Comments MAGNESIUM (test code = 8469160081) 2.1 mg/dL 1.7-2.4 Lab Interpretation (test code = Normal 84885-7) [facility] HospitalBasi Metabolic Panel (NA, K, CL, CO2, GLUCOSE, BUN, CREATININE, CA)2021-09-03 10:49:54 Test Item Value Reference Range Interpretation Comments NA (test code = 140 mmol/L 135-145 8402141413) K (test code = 5.0 mmol/L 3.5-5.0 8171257358) CL (test code = 112 mmol/L 98-108 H 3005851082) CO2 TOTAL (test code = 21 mmol/L 23-31 L 9962375820) AGAP (test code = 2-16 4679105234) BUN (test code = 41 mg/dL 7-23 H 1633224898) GLUCOSE (test code = 205 mg/dL 70-110 H 0076056451) CREATININE (test code = 2.95 mg/dL 0.60-1.25 H 4004693115) CALCIUM (test code = 8.6 mg/dL 8.6-10.6 9046109506) eGFR (test code = mL/min/1.73m2 7974697188) RADHA (test code = RADHA) Association of [...] tests). Lab Interpretation Abnormal (test code = 01731-8) [facility] HospitalURIC [id number] 10:49:54 Test Item Value Reference Range Interpretation Comments URIC ACID (test code = 2568472768) 5.1 mg/dL 3.6-8.0 Lab Interpretation (test code = Normal 21956-8) [facility] HospitalCB with [id number] 10:06:10 Test Item Value Reference Range Interpretation [...] (test code = 53.0 fL 38.5-51.6 H 81005-6) RDW-CV (test code = 15.2 % 12.1-15.4 788-0) PLT (test code = See_Comment [Automated 777-3) message] The sy stem which generated this result transmitted reference range : 150 - 328 10*3/ ?L. The reference r hilary was not used to interpret this result as normal/abnormal . MPV (test code = 10.1 fL 9.8-13.0 61231-9) NRBC/100 WBC (test See_Comment [Automat ed code = 1504544444) message] The system which generated this result transmitted reference range : 0.0 - 10.0 /100 WBCs. The refer ence range was not u sed to interpret th is result as normal/abnormal . NRBC x10^3 (test code <0.01 See_Comment [Auto mated = 7213091620) message] The s ystem which generated this result transmitted reference range : 10*3/?L. The reference range was not used to interpret this result as normal/abnormal . GRAN MAT (NEUT) % 94.4 % (test code = 770-8) IMM GRAN % (test code 0.50 % = 4331852075) LYMPH % (test code = 4.2 % 736-9) MONO % (test code = 0.9 % 5905-5) EOS % (test code = 0.0 % 713-8) BASO % (test code = 0.0 % 706-2) GRAN MAT x10^3(ANC) 5.20 10*3/uL 1.99-6.95 (test code = 1545235072) IMM GRAN x10^3 (test 0.03 10*3/uL 0.00-0.06 code = 8431820616) LYMPH x10^3 (test code 0.23 10*3/uL 1.09-3.23 L = 731-0) MONO x10^3 (test code 0.05 10*3/uL 0.36-1.02 L = 742-7) EOS x10^3 (test code = <0.03 0.06-0.53 L 711-2) BASO x10^3 (test code <0.03 0.01-0.09 = 704-7) Lab Interpretation Abnormal (test code = 10143-9) [facility] HospitalURIC [id number] 07:55:03 Test Item Value Reference Range Interpretation Comments URIC ACID (test code = 8693953006) 5.3 mg/dL 3.6-8.0 Lab Interpretation (test code = Normal 11489-3) [facility] HospitalPROCALCITONIN2022-01-24 07:43:46 Test Item Value Reference Range Interpretation Comments Procalcitonin (test 0.12 ng/mL <0.07 H code = 5964934546) RADHA (test code = RADHA) INTERPRETATION OF [...] lung abscess/empyema. For further information please refer to:[email or web address] Lab Interpretation Abnormal (test code = 24693-7) [facility] HospitalTROPONIN [id number] 03:12:06 Test Item Value Reference Interpretation Comments Range TROPONIN I (test 0.029 ng/mL See_Comment [Automated code = 7451489431) message] The system which generated this result [...] biotin. Lab Interpretation Normal (test code = 10899-9) [facility] HospitalPhosphorus [id number] 02:59:26 Test Item Value Reference Range Interpretation Comments PHOSPHORUS (test code = 5987256416) 3.5 mg/dL 2.5-5.0 Lab Interpretation (test code = Normal 39464-1) [facility] HospitalFERRITIN [id number] 02:43:44 Test Item Value Reference Range Interpretation Comments FERRITIN (test code = 132.0 ng/mL 18.0-464.0 8120739296) RADHA (test code = RADHA) Biotin has been reported to cause a negative bias, interpret results relative to patient's use of biotin. Lab Interpretation (test Normal code = 05714-8) [facility] HospitalGLYCOSYLATED HEMOGLOBIN (A1C)2021-09-03 02:22:16 Test Item Value Reference Range Interpretation Comments HGB A1C (test code = 6.3 % 4.0-5.7 H 4548-4) RADHA (test code = RADHA) Reference RangesNormal: <5.7%Prediabetes: 5.7 - 6.4%Diabetes: > 6.5% Lab Interpretation (test Abnormal code = 50003-7) [facility] HospitalIRON [id number] 02:15:44 Test Item Value Reference Range Interpretation Comments IRON (test code = 1491122979) 21 ug/dL 50-160 L TIBC (test code = 6650186502) 294 ug/dL 250-410 % FE SAT (test code = 9915345465) 7 % 20-50 L Lab Interpretation (test code = Abnormal 81935-6) [facility] HospitalTHYROID STIMULATING [id number] 01:17:43 Test Item Value Reference Range Interpretation Comments TSH (test code = See_Comment H [Automated message] 7124924577) The system [employer] generated this result transmitted ref erence range: 0.45 - 4 .70 mIU/L. The refe rence range was not u sed to interpret this result as normal/abnor mal. Lab Interpretation (test Abnormal code = 57398-1) [facility] 22:51:11 Test Item Value Reference Range Interpretation Comments POCT GLU (test code = 8215294056) 169 mg/dL 70-110 H Lab Interpretation (test code = Abnormal 99365-7) [facility] GLUCOSE (AUTOMATED)2021-09-02 21:35:04 Test Item Value Reference Range Interpretation Comments POCT GLU (test code = 8146020230) 176 mg/dL 70-110 H Lab Interpretation (test code = Abnormal 66552-6) [facility].2021-09-02 16:59:20 Test Item Value Reference Range Interpretation Comments PH (test code = 2) 7.35-7.45 L PCO2 (test code = See_Comment [Automate d message] 2761798307) The system [employer] generated this result transmitted ref erence range: 35 - 45 mmHg. The reference r hilary was not used to interpret this result as normal/abnor mal. PO2 (test code = See_Comment L [Automated message] 3589305483) The system [employer] generated this result transmitted ref erence range: 80 - 100 mmHg. The reference r hilary was not used to interpret this result as normal/abnor mal. HCO3 (test code = See_Comment L [Automate d message] 1964704549) The system [employer] generated this result transmitted ref erence range: 22 - 26 mEq/L. The reference r hilary was not used to interpret this result as normal/abnor mal. BE (test code = See_Comment L [Automated message] 5246107436) The system [employer] generated this result transmitted ref erence range: -3.0 - 3 .0 mEq/L. The refe rence range was not u sed to interpret this result as normal/abnor mal. Lab Interpretation (test Abnormal code = 09280-6) [facility] [id number] 16:13:32 Test Item Value Reference Interpretation Comments Range TROPONIN I (test 0.042 ng/mL See_Comment H [Automated code = 3427154177) message] The system which generated this result [...] biotin. Lab Interpretation Abnormal (test code = 87880-1) [id number] 16:10:31 Test Item Value Reference Range Interpretation Comments NT-proBNP (test code 3090 pg/mL See_Comment H [Autom ated = 7175823525) message] The system which generated this result transmitted reference range : <=450. The reference range was not used to interpret this result as normal/abnormal . RADHA (test code = RADHA) Biotin has been reported to cause a negative bias, interpret results relative to patient's use of biotin. Lab Interpretation Abnormal (test code = 74835-3) [facility] METABOLIC PANEL (27950)2021-09-02 16:02:09 Test Item Value Reference Range Interpretation Comments NA (test code = 141 mmol/L 135-145 4415099737) K (test code = 5.3 mmol/L 3.5-5.0 H 3580693198) CL (test code = 113 mmol/L 98-108 H 3930397804) CO2 TOTAL (test code = 21 mmol/L 23-31 L 6259519381) AGAP (test code = 2-16 8559606145) BUN (test code = 37 mg/dL 7-23 H 7808445004) GLUCOSE (test code = 167 mg/dL 70-110 H 8153290211) CREATININE (test code = 2.91 mg/dL 0.60-1.25 H 9601630990) TOTAL BILI (test code = 0.5 mg/dL 0.1-1.9 3169471877) CALCIUM (test code = 8.6 mg/dL 8.6-10.6 3562074672) T PROTEIN (test code = 6.4 g/dL 6.3-8.2 9096299342) ALBUMIN (test code = 3.6 g/dL 3.5-5.0 6446940820) ALK PHOS (test code = 128 U/L 34-122 H 9892736599) ALTv (test code = 21 U/L 5-50 1742-6) AST(SGOT) (test code = 17 U/L 13-40 2026816260) eGFR (test code = mL/min/1.73m2 7282095564) RADHA (test code = RADHA) Association of [...] tests). Lab Interpretation Abnormal (test code = 42649-4) [facility] 16:01:29 Test Item Value Reference Range Interpretation Comments LIPASE (test code = 2283115733) 102 U/L 0-220 Lab Interpretation (test code = Normal 51511-2) [facility] THRM[facility] [id number] 15:59:08 Test Item Value Reference Range Interpretation Comments APTT Patient (test See_Comment [Automat ed code = 3173-2) message] The system which generated this result transmitted reference range : 23 - 38 Seconds . The reference range was not used to interpr et this result as normal/abnormal . RADHA (test code = RADHA) The [facility] patient population mean normal value for aPTT is 30 seconds. Lab Interpretation Normal (test code = 42875-3) [facility] HospitalPROT[facility] / [id number] 15:56:48 Test Item Value Reference Range Interpretation [...] tions. Lab Interpretation (test Normal code = 87410-9) [facility] WITH [id number] 15:48:46 Test Item Value Reference Range Interpretation [...] (test code = 54.7 fL 38.5-51.6 H 32256-1) RDW-CV (test code = 15.5 % 12.1-15.4 H 788-0) PLT (test code = See_Comment [Automated 777-3) message] The sy stem which generated this result transmitted reference range : 150 - 328 10*3/ ?L. The reference r hilary was not used to interpret this result as normal/abnormal . MPV (test code = 9.8 fL 9.8-13.0 62546-4) NRBC/100 WBC (test See_Comment [Automat ed code = 2277486502) message] The system which generated this result transmitted reference range : 0.0 - 10.0 /100 WBCs. The refer ence range was not u sed to interpret th is result as normal/abnormal . NRBC x10^3 (test code <0.01 See_Comment [Auto mated = 6283534345) message] The s ystem which generated this result transmitted reference range : 10*3/?L. The reference range was not used to interpret this result as normal/abnormal . GRAN MAT (NEUT) % 76.7 % (test code = 770-8) IMM GRAN % (test code 0.40 % = 7151794961) LYMPH % (test code = 14.6 % 736-9) MONO % (test code = 6.4 % 5905-5) EOS % (test code = 1.5 % 713-8) BASO % (test code = 0.4 % 706-2) GRAN MAT x10^3(ANC) 6.25 10*3/uL 1.99-6.95 (test code = 8626155002) IMM GRAN x10^3 (test 0.03 10*3/uL 0.00-0.06 code = 3366006745) LYMPH x10^3 (test code 1.19 10*3/uL 1.09-3.23 = 731-0) MONO x10^3 (test code 0.52 10*3/uL 0.36-1.02 = 742-7) EOS x10^3 (test code = 0.12 10*3/uL 0.06-0.53 711-2) BASO x10^3 (test code 0.03 10*3/uL 0.01-0.09 = 704-7) Lab Interpretation Abnormal (test code = 45705-4) [facility]"
[2022-10-26] MEDS ORDERED: ACETAMINOPHEN 500 MG TAB ONE (19:19)
[2022-10-26] MEDS ORDERED: CEFTRIAXONE 1000 MG/VIAL ONE (19:19)
[2022-10-26] MEDS ORDERED: METHYLPREDNISOLONE 40 MG INJ ONE (19:19)
[2022-10-26] MEDS ORDERED: AZITHROMYCIN 250 MG TAB ONE (19:19)
[2022-10-26] MEDS ORDERED: NA CHLORIDE 0.9% 250 ML ONE (19:20)
[2022-10-26] MEDS ORDERED: ALBUTEROL 2.5 MG/3 ML NEB SOL ONE (19:20)
[2022-10-26] MEDS ORDERED: IPRATROPIUM BROM 0.5MG/2.5ML ONE (19:20)
[2022-10-26 19:35] LABS: Absolute Lymphocytes (CBC) 1.4 K/uL (0.7-4.9); Hematocrit 33.4 % (39.6-49.0); Lymphocytes % 12.9 % (15.3-44.8); MCV 93.9 fL (80-100); MPV 7.1 fL (7.6-11.3); RBC Red Blood Cell Count 3.56 M/uL (4.33-5.43)
[2022-10-26 19:52] LABS: Protime INR 1.07
[2022-10-26 19:54] LABS: Bilirubin Total 0.4 mg/dL (0.2-1.0); Protein, Total 8.1 g/dL (6.4-8.2); Troponin High Sensitivity 32.1 pg/mL (<58.9)
[2022-10-26 20:02] LABS: SARS-COV-2 RT PCR NEGATIVE (NEGATIVE)
--- NOTE | 2022-10-26 20:03 | RAD REPORT ---
EXAM DESCRIPTION: Dory Single View10/26/2022 7:22 pm CLINICAL HISTORY: Congestion COMPARISON: August 2022 FINDINGS: Mild left basilar opacity unchanged The heart is mildly enlarged. Central venous catheter in place IMPRESSION: Mild left basilar opacity unchanged which may represent pneumonia or atelectasis
--- NOTE | 2022-10-26 20:11 | ER ---
Nurse's Notes [facility] Name: Frank López Age: 77 yrs Sex: Male : 1945 Arrival Date: 10/26/2022 Time: 18:46 Bed 14 Private MD: Diagnosis: Other pneumonia, unspecified organism;Acute respiratory failure with hypoxia;COPD/ Chronic obstructive pulmonary disease, unspecified;End stage renal disease;Severe sepsis without septic shock Presentation: 10/26 18:46 Chief complaint: EMS states: SOB x 2-3 days, BP 147/86, SpO2 87% on 2L home O2, hb improved to 93% after DuoNeb, T 100.3. Coronavirus screen: Client presents with at least one sign or symptom that may indicate coronavirus-19. Standard/surgical mask placed on the client. Provider contacted for isolation considerations. Ebola Screen: No symptoms or risks identified at this time. Risk Assessment: Do you want to hurt yourself or someone else? Patient reports no desire to harm self or others. Onset of symptoms was October 25, 2022. 18:46 Method Of Arrival: EMS: [facility] hb 18:46 Acuity: GAVI 2 hb 19:00 Initial Sepsis Screen: Does the patient meet any 2 criteria? Yes Does the patient have pf1 a suspected source of infection? No. Patient's initial sepsis screen is negative. Triage Assessment: 18:49 General: Appears distressed, Behavior is cooperative. Pain: Complains of pain in back hb Pain currently is 7 out of 10 on a pain scale. EENT: No signs and/or symptoms were reported regarding the EENT system. Neuro: Level of Consciousness is awake, alert, obeys commands, Oriented to person, place, time, situation. Cardiovascular: Patient's skin is warm and dry. Cardiovascular: Denies. Respiratory: Reports shortness of breath at rest on exertion Respiratory effort is labored, gasping, Respiratory pattern is tachypnea the patient has moderate shortness of breath. GI: No signs and/or symptoms were reported involving the gastrointestinal system. : No signs and/or symptoms were reported regarding the genitourinary system. Derm: Skin is pink, warm \T\ dry. Musculoskeletal: Reports back pain. Historical: - Allergies: 18:49 Codeine; hb 18:49 Sulfa (Sulfonamide Antibiotics); hb - PMHx: 18:49 Atrial fibrillation; Congestive heart failure; COPD; Diabetes - NIDDM; High hb Cholesterol; Hypertension; - PSHx: 18:49 Nephrectomy; hb - Immunization history:: Adult Immunizations up to date. - Social history:: Smoking status: Patient reports the use of cigarette tobacco products. Screenin:00 [facility] ED Fall Risk Assessment (Adult) History of falling in the last 3 months, pf1 including since admission No falls in past 3 months (0 pts) Confusion or Disorientation No (0 pts) Intoxicated or Sedated No (0 pts) Impaired Gait No (0 pts) Mobility Assist Device Used No (0 pt) Altered Elimination Yes (1 pt) Score/Fall Risk Level 0 - 2 = Low Risk Oriented to surroundings, Maintained a safe environment, Educated pt \T\ family on fall prevention, incl call for assistance when getting out of bed, Assessed \T\ reinforced patient's understanding of fall precautions, Provided non-skid footwear, Hourly rounding (assess needs \T\ fall precautionary measures) done, Used ambulatory aids as needed (educated on \T\ assisted with), Used gait belt as appropriate. 19:00 Abuse screen: Denies threats or abuse. Nutritional screening: No deficits noted. pf1 Tuberculosis screening: No symptoms or risk factors identified. Assessment: 19:00 General: Appears in no apparent distress. comfortable, well groomed, well developed, pf1 Behavior is calm, cooperative, appropriate for age, quiet. 19:00 Pain: Complains of pain in back Pain began years ago. Neuro: No deficits noted. Level pf1 of Consciousness is awake, alert, obeys commands, Oriented to person, place, time, situation. Cardiovascular: Reports shortness of breath, Capillary refill < 3 seconds Patient's skin is warm and dry. Respiratory: Reports shortness of breath at rest on exertion Airway is patent Trachea midline Respiratory effort is even, unlabored, Respiratory pattern is regular, symmetrical, Breath sounds with rhonchi bilaterally. Respiratory: Reports patient stated uses 02 2L at home for COPD. GI: No deficits noted. Abdomen is flat, non-distended, Bowel sounds present X 4 quads. : Patient has a dialysis catheter to right anterior chest wall. Patient stated has dialysis on Friday, and Friday. EENT: No deficits noted. No signs and/or symptoms were reported regarding the EENT system. Derm: No deficits noted. No signs and/or symptoms reported regarding the dermatologic system. Musculoskeletal: No deficits noted. No signs and/or symptoms reported regarding the musculoskeletal system. 19:00 Cardiovascular: Rhythm is atrial fibrillation. pf1 20:00 Reassessment: Patient appears in no apparent distress at this time. Patient and/or pf1 family updated on plan of care and expected duration. Pain level reassessed. Patient is alert, oriented x 3, equal unlabored respirations, skin warm/dry/pink. Patient states symptoms have not improved. 10/27 07:35 Reassessment: attempted to call report to second floor. stated the nurse will call me kc6 back. 07:56 Reassessment: attempted to call report to second floor. stated the nurse is doing med kc6 pass and has my extension to call me back. 08:32 Reassessment: attempted to call report to CESAR Villafana. stated she is in a patient room kc6 right now and will call me back. Vital Signs: 10/26 18:46 BP 112 / 66; Pulse 109; Resp 24; Temp 99.1; Pulse Ox 93% on R/A; hb 19:30 BP 123 / 70; Pulse 100; Resp 21; Temp 98.3; Pulse Ox 99% on 3 lpm NC; Pain 7/10; pf1 20:30 BP 109 / 68; Pulse 105; Resp 22; Temp 98.1(O); Pulse Ox 95% on 3 lpm NC; Pain 7/10; pf1 19:30 Pain Scale: Adult pf1 20:30 Pain Scale: Adult pf1 ED Course: 18:46 Patient arrived in ED. hb 18:48 Karen Yanez FNP-C is PHCP. kb 18:48 Migue Shi MD is Attending Physician. kb 18:49 Triage completed. hb 18:49 Arm band placed on. hb 19:00 Patient has correct armband on for positive identification. Placed in gown. Bed in low pf1 position. Call light in reach. Side rails up X2. 19:00 No provider procedures requiring assistance completed. pf1 19:07 Attending Physician role handed off by Migue Shi MD ms3 19:07 Paulo Farah DO is Attending Physician. ms3 19:15 Troponin High Sensitivity Sent. hb 19:15 BNP Sent. hb 19:15 COVID-19/FLU A+B Sent. hb 19:15 CBC with Diff Sent. hb 19:15 CMP Sent. hb 19:15 Lactate w/ 2H reflex if indic. Sent. hb 19:15 Protime (+inr) Sent. hb 19:15 Ptt, Activated Sent. hb 19:16 Inserted saline lock: 20 gauge in left antecubital area, using aseptic technique. Blood hb collected. 19:16 First set of blood cultures drawn by me. hb 19:24 Chest Single View XRAY In Process Unspecified. EDMS 19:49 BNP Sent. hb 19:49 Troponin High Sensitivity Sent. hb 19:50 Mee Alegre, RN is Primary Nurse. hb 19:50 COVID-19/FLU A+B Sent. hb 20:10 Harjeet Wallis MD is Hospitalizing Provider. ms3 20:24 Inserted saline lock: 22 gauge in right forearm, using aseptic technique. Blood pf1 collected. 20:28 Blood Culture Adult (2) Sent. hb 20:[address] In Process Unspecified. EDMS 20:57 Patient admitted, IV remains in place. pf1 23:28 Urine Culture Sent. pf1 23:28 Urinalysis Sent. pf1 10/27 00:23 Primary Nurse role handed off by Mee Alegre, CESAR ha1 00:23 Gertrudis Sahu, CESAR is Primary Nurse. ha1 Administered Medications: 10/26 19:46 Drug: DuoNeb Nebulize (3:1) (2.5 mg - 0.5 mg) 3 ml Route: Nebulizer; hb 20:40 Follow up: Response: No adverse reaction; Marked relief of symptoms pf1 19:46 Drug: MethylPrednisoLONE IVP 40 mg Route: IVP; Site: left antecubital; hb 20:40 Follow up: Response: No adverse reaction pf1 19:46 Drug: NS 0.9% IV 250 ml Route: IV; Rate: bolus; Site: left antecubital; hb 20:15 Follow up: Response: No adverse reaction pf1 20:25 Follow up: IV Status: Completed infusion; IV Intake: 250ml hb 19:46 Drug: Acetaminophen PO 1000 mg Route: PO; hb 20:30 Follow up: Response: No adverse reaction; Marked relief of symptoms; Temperature is pf1 decreased 20:34 Drug: Rocephin IV 1 grams Route: IV; Rate: bolus; Site: right forearm; pf1 20:50 Follow up: Response: No adverse reaction; IV Status: Completed infusion; IV Intake: 89kdfw4 20:34 Drug: AZITHromycin PO 500 mg Route: PO; pf1 20:50 Follow up: Response: No adverse reaction pf1 Medication: 19:00 VIS not applicable for this client. pf1 Intake: 20:25 IV: 250ml; Total: 250ml. hb 20:50 IV: 10ml; Total: 260ml. pf1 Outcome: 20:11 Decision to Hospitalize by Provider. ms3 20:57 Admitted to ER Hold. Please see [facility] for further documentation. pf1 20:57 Condition: stable pf1 20:57 Instructed on the need for admit, Demonstrated understanding of instructions. 10/27 09:03 Patient left the ED. mm9 Signatures: Dispatcher [employer] EDPR Karen Yanez, LUMBER HANDLER-C LUMBER HANDLER-CkMee Farooq RN RN Paulo Farah DO DO ms3 Gertrudis Sahu RN RN ha1 Gail Douglass RN RN kc6 Migue Shi MD MD bs3 Princess Cohn mm9 Gris nolasco, CESAR RN pf1 Corrections: (The following items were deleted from the chart) 10/26 18:55 18:46 Chief complaint: EMS states: SOB x 2 days, BP 147/86, SpO2 87% on RA, improved to hb 93% on 2LNC, T 99.9, Tylenol 1g and DuoNeb administered CODING CONSULTANT. hb 18:56 18:46 Initial Sepsis Screen: Does the patient meet any 2 criteria? No. Patient's hb initial sepsis screen is negative. Does the patient have a suspected source of infection? No. Patient's initial sepsis screen is negative. hb 19:56 19:15 Influenza Screen (A \T\ B)+BA.LAB.BRZ drawn and sent. [facility] 10/27 07:36 03 18:46 Chief complaint: EMS states: SOB x 2 3ays, BP 147/86, SpO2 87% on 2L home hb O2, improved to 93% after DuoNeb, T 100.3 hb 10/27 08:44 07:56 Reassessment: attempted to call report to second floor. stated the nurse is doing kc6 med pass. kc6
--- NOTE | 2022-10-26 20:11 | EDPHYS ---
Physician Documentation [facility] Name: Frank López Age: 77 yrs Sex: Male : 1945 Arrival Date: 10/26/2022 Time: 18:46 Bed 14 Private MD: ED Physician Paulo Farah HPI: 10/26 18:55 This 77 yrs old Male presents to ER via EMS with complaints of Shortness Of bs3 Breath. 18:55 77year-old male history of A-fib, CHF, COPD, diabetes, ESRD on dialysis Friday bs3 Friday last dialyzed today presents with cough shortness of breath for the past several days he endorsed a fever today at baseline he does not use oxygen but usually uses oxygen at night and then occasionally 2 L during the day he feels like he cannot get the sputum up. He took his temperature tonight and it was elevated and therefore came in no sick contacts no recent travel. Historical: - Allergies: 18:49 Codeine; hb 18:49 Sulfa (Sulfonamide Antibiotics); hb - PMHx: 18:49 Atrial fibrillation; Congestive heart failure; COPD; Diabetes - NIDDM; High hb Cholesterol; Hypertension; - PSHx: 18:49 Nephrectomy; hb - Immunization history:: Adult Immunizations up to date. - Social history:: Smoking status: Patient reports the use of cigarette tobacco products. ROS: 18:55 Constitutional: Positive for fever bs3 18:55 All other systems are negative. Exam: 18:55 Constitutional: This is a well developed, well nourished patient who is awake, alert, bs3 tachypneic mild respiratory distress Head/Face: Normocephalic, atraumatic. Eyes: Pupils equal round and reactive to light, extra-ocular motions intact. Lids and lashes normal. ENT: mmm, no posterior phyarngeal erythema Neck: Trachea midline, no thyromegaly, no neck stiffness Chest/axilla: Dialysis port in right anterior chest dressing is clean dry and intact, no deformities no erythema around dialysis catheter site Cardiovascular: Irregular, tachycardic normal pulses Respiratory: Increased work of breathing, tachypneic, rhonchi Abdomen/GI: Soft, non-tender, no rebound or guarding Skin: Warm, dry with normal turgor. Normal color with no rashes, no lesions, and no evidence of cellulitis. MS/ Extremity: Pulses equal, no cyanosis. Neurovascular intact. Full, normal range of motion. Neuro: Awake and alert, GCS 15, oriented to person, place, time, and situation. Cranial nerves II-XII grossly intact. Motor strength 5/5 in all extremities. Sensory grossly intact. 20:16 ECG was reviewed by the Attending Physician. ms3 Vital Signs: 18:46 BP 112 / 66; Pulse 109; Resp 24; Temp 99.1; Pulse Ox 93% on R/A; hb 19:30 BP 123 / 70; Pulse 100; Resp 21; Temp 98.3; Pulse Ox 99% on 3 lpm NC; Pain 7/10; pf1 20:30 BP 109 / 68; Pulse 105; Resp 22; Temp 98.1(O); Pulse Ox 95% on 3 lpm NC; Pain 7/10; pf1 19:30 Pain Scale: Adult pf1 20:30 Pain Scale: Adult pf1 MDM: 18:48 Patient medically screened. kb 18:55 Differential diagnosis: Bronchitis CHF exacerbation, Chronic Obstructive Pulmonary bs3 Disease pneumonia, Pneumothorax pulmonary edema, reactive airway disease, Sepsis. Data reviewed: vital signs, nurses notes. ED course: Patient tachycardic, tachypneic borderline febrile will evaluate for sepsis we will give small bolus of IV fluid will give antibiotics bedside ultrasound notable for no significant pulmonary edema, okay squeeze patient signed out to Dr. Farah pending entire work-up, anticipate admission for respiratory failure, increased o2 and copd exaccerbation. 18:59 ED course: pt admitted to dr. Navarrete on August for resp distress. 3 10/26 18:52 Order name: Blood Culture Adult (2) 3 10/26 18:52 Order name: CBC with Diff; Complete Time: 19:59 3 10/26 18:52 Order name: CMP; Complete Time: 19:59 3 10/26 18:52 Order name: Lactate w/ 2H reflex if indic.; Complete Time: 03:57 3 10/26 18:52 Order name: Protime (+inr); Complete Time: 19:59 3 10/26 18:52 Order name: Ptt, Activated; Complete Time: 19:59 [facility] [place] 10/26 18:52 Order name: Urine Microscopic Only; Complete Time: 03:57 bs3 10/26 18:55 Order name: Troponin High Sensitivity; Complete Time: 19:59 bs3 10/26 18:55 Order name: BNP; Complete Time: 19:59 bs3 10/26 19:11 Order name: COVID-19/FLU A+B; Complete Time: 20:04 pf1 10/26 20:32 Order name: Urinalysis EDMS 10/26 20:32 Order name: Basic Metabolic Panel EDMS 10/26 20:32 Order name: Basic Metabolic Panel; Complete Time: 03:57 EDMS 10/26 20:32 Order name: Basic Metabolic Panel EDMS 10/26 20:32 Order name: Basic Metabolic Panel EDMS 10/26 20:32 Order name: Basic Metabolic Panel EDMS 10/26 20:32 Order name: CBC with Automated Diff EDMS 10/26 20:32 Order name: CBC with Automated Diff; Complete Time: 03:57 EDMS 10/26 20:32 Order name: CBC with Automated Diff EDMS 10/26 20:32 Order name: CBC with Automated Diff EDMS 10/26 20:32 Order name: CBC with Automated Diff EDMS 10/26 20:32 Order name: Procalcitonin EDMS 10/26 20:32 Order name: Procalcitonin; Complete Time: 06:17 EDMS 10/26 20:32 Order name: Sputum Culture EDMS 10/26 20:32 Order name: Urine Culture EDMS 10/26 23:09 Order name: Glucose, Ancillary Testing; Complete Time: 03:57 EDMS 10/26 23:21 Order name: Urine Dipstick-Ancillary; Complete Time: 03:57 EDMS 10/27 02:13 Order name: Lactate Sepsis 2 HR Follow-up; Complete Time: 03:57 EDMS 10/27 04:41 Order name: Lactate w/ 2H reflex if indic. ds4 10/27 05:08 Order name: Lactate w/ 2H reflex if indic.; Complete Time: 06:17 EDMS 10/27 07:30 Order name: Glucose, Ancillary Testing EDMS 10/26 18:52 Order name: Chest Single View XRAY; Complete Time: 20:04 bs3 10/26 20:10 Order name: Chest Wo Con CT; Complete Time: 21:26 la1 10/26 18:52 Order name: EKG; Complete Time: 18:53 bs3 10/26 20:32 Order name: Renal EDMS 10/26 18:52 Order name: Accucheck; Complete Time: 21:27 bs3 10/26 18:52 Order name: Cardiac monitoring; Complete Time: 19:15 bs3 10/26 18:52 Order name: EKG - Nurse/Tech; Complete Time: 21:27 bs3 10/26 18:52 Order name: IV Saline Lock - Large Bore; Complete Time: 19:15 bs3 10/26 18:52 Order name: Labs collected and sent; Complete Time: 19:15 bs3 10/26 18:52 Order name: O2 Per Protocol; Complete Time: 19:15 bs3 10/26 18:52 Order name: O2 Sat Monitoring; Complete Time: 19:15 bs3 10/26 18:52 Order name: Vital Signs; Complete Time: 19:15 bs3 EC:16 Rate is 94 beats/min. Rhythm is regular. QRS Baker is Normal. IN interval is normal. QRS ms3 interval is normal. Clinical impression: NSR w/ Non-specific ST/T Changes. Interpreted by me. Reviewed by me. Administered Medications: 19:46 Drug: DuoNeb Nebulize (3:1) (2.5 mg - 0.5 mg) 3 ml Route: Nebulizer; hb 20:40 Follow up: Response: No adverse reaction; Marked relief of symptoms pf1 19:46 Drug: MethylPrednisoLONE IVP 40 mg Route: IVP; Site: left antecubital; hb 20:40 Follow up: Response: No adverse reaction pf1 19:46 Drug: NS 0.9% IV 250 ml Route: IV; Rate: bolus; Site: left antecubital; hb 20:15 Follow up: Response: No adverse reaction pf1 20:25 Follow up: IV Status: Completed infusion; IV Intake: 250ml hb 19:46 Drug: Acetaminophen PO 1000 mg Route: PO; hb 20:30 Follow up: Response: No adverse reaction; Marked relief of symptoms; Temperature is pf1 decreased 20:34 Drug: Rocephin IV 1 grams Route: IV; Rate: bolus; Site: right forearm; pf1 20:50 Follow up: Response: No adverse reaction; IV Status: Completed infusion; IV Intake: [id number] 20:34 Drug: AZITHromycin PO 500 mg Route: PO; pf1 20:50 Follow up: Response: No adverse reaction pf1 Disposition Summary: 10/26/22 20:11 Hospitalization Ordered Hospitalization Status: Inpatient Admission ms3 Provider: Harjeet Wallis ms3 Condition: Stable ms3 Problem: new ms3 Symptoms: are unchanged ms3 Bed/Room Type: Standard ms3 Location: Telemetry/MedSurg (observation)(10/27/22 07:28) kj1 Room Assignment: 230(10/27/22 07:28) kj1 Diagnosis - Other pneumonia, unspecified organism ms3 - Acute respiratory failure with hypoxia ms3 - COPD/ Chronic obstructive pulmonary disease, unspecified ms3 - End stage renal disease ms3 - Severe sepsis without septic shock ms3 Forms: - Medication Reconciliation Form ms3 - SBAR form ms3 Signatures: Dispatcher [employer] EDMS Karen Yanez, ARCHITECTURAL COATING FINISHER-C ARCHITECTURAL COATING FINISHER-Ckb Rosales Saleh FNP-C ARCHITECTURAL COATING FINISHER-Cla1 Anastasia Escobar RN CESAR Mee Alegre RN RN Aleah Yanez kj1 Paulo Farah, DO ms3 Migue Shi MD MD bs3 Gris nolasco, CESAR RN pf1 Corrections: (The following items were deleted from the chart) 19:15 18:53 SARS-COV-2 Antigen Rapid+I.LAB.BRZ ordered. EDMS EDMS 19:56 18:53 Influenza Screen (A \T\ B)+BA.LAB.BRZ ordered. EDCA EDMS 20:57 20:11 Telemetry/MedSurg (Inpatient) ms3 cg 20:57 20:11 ms3 cg 10/27 07:28 10/26 20:57 [facility] ER HOLD cg kj1 10/27 07:28 10/26 20:57 ERHOLD- cg kj1
[2022-10-26] MEDS ORDERED: IPRATROPIUM BROM 0.5MG/2.5ML NEB PRN (20:26)
[2022-10-26] MEDS ORDERED: ALBUTEROL 2.5 MG/3 ML NEB SOL NEB PRN (20:26)
[2022-10-26] MEDS ORDERED: ONDANSETRON 4 MG/2 ML VIAL IV PRN (20:26)
[2022-10-26] MEDS ORDERED: MELATONIN 5 MG TABLET PO PRN (20:30)
--- NOTE | 2022-10-26 20:58 | P.HP ---
Certification for Inpatient Patient admitted to: Inpatient With expected LOS: >2 Midnights Patient will require the following post-hospital care: None Practitioner: I am a practitioner with admitting privileges, knowledge of patient current condition, hospital course, and medical plan of care. Services: Services provided to patient in accordance with Admission requirements found in Title 42 Section 412.3 of the Code of Federal Regulations Patient History Date of Service: 10/26/22 Reason for admission: Sepsis, pneumonia, COPD exacerbation, ESRD History of Present Illness: 77-year-old male with history of ESRD on HD TTS, COPD on chronic home O2, paroxysmal atrial fibrillation on chronic anticoagulation, monoclonal gammopathy, CAD history of PCI, PAD, chronic diastolic congestive heart failure, hypertension, hyperlipidemia, diabetes mellitus type 2, BPH presents to the emergency department for fever, shortness of breath. He did receive dialysis today, he reports increasing dyspnea and low-grade fevers over the course of the last 2 to 3 days. In July 2022 he was initiated on hemodialysis and also treated for MRSA UTI and ESBL E. coli pneumonia, after that hospitalization he was transferred to [facility] for approximately 2 weeks and subsequently discharged home. He was again admitted here on 09/04/2022 and treated for respiratory failure, pneumonia subsequently discharged on 09/07/2022 during that visit his blood cultures and urine culture were negative. Today his labs are significant for white blood cell count of 10.6 creatinine 3.67 GFR 16 glucose 157 TRAINING SPECIALIST [id number] COVID/influenza were negative chest x-ray was obtained which revealed mild left basilar opacity unchanged which may represent pneumonia or atelectasis. Given low-grade fevers concern for infectious process/pneumonia is noted. Meets criteria for sepsis but not yet severe sepsis or septic shock. Given antibiotics in ED, CT chest ordered to further evaluate possible pneumonia will admit for further evaluation/management. Allergies codeine Allergy (Verified 08/08/21 02:36) Shortness of breath Sulfa (Sulfonamide Antibiotics) Allergy (Verified 08/08/21 02:36) Shortness of breath Home Medications: Atorvastatin Calcium 40 mg PO BEDTIME 08/02/18 Finasteride [Proscar*] 5 mg PO DAILY 08/02/18 Gabapentin 300 mg PO BEDTIME 08/02/18 Paroxetine HCl [Paxil] 20 mg PO DAILY 08/02/18 allopurinoL [Zyloprim*] 100 mg PO DAILY 08/03/18 Budesonide/Formoterol Fumarate [Symbicort 160-4.5 Mcg Inhaler] 2 puff IH BID #60 hfa.aer.ad 08/06/18 Cholecalciferol (Vitamin D3) [Vitamin D3] 25 mcg PO DAILY 08/08/21 Cyanocobalamin [Vitamin B-12*] 2,000 mcg PO DAILY 08/08/21 Ipratropium/Albuterol Sulfate [Combivent Respimat 20-100 Mcg] 1 puff IH Q6H PRN 08/08/21 Apixaban [Eliquis *] 2.5 mg PO BID #60 tablet 08/11/21 Furosemide [Lasix] 40 mg PO DAILY #30 tablet 08/11/21 Albuterol Neb [Proventil 0.083% Neb Soln] 3 ml NEB PRN PRN 09/04/22 Ipratropium Neb [Atrovent*] 2.5 ml NEB PRN PRN 09/04/22 Tamsulosin [Flomax*] 0.4 mg PO BEDTIME 09/04/22 Albuterol Neb [Proventil 0.083% Neb Soln] 2.5 mg NEB [id number] PRN #60 amp 09/07/22 Arformoterol Tartrate [Brovana] 15 mcg NEB BIDRESP #60 vial.neb 09/07/22 Cholecalciferol (Vitamin D3) [Vitamin D 1000 Iu Tab*] 1,000 unit PO DAILY #30 tab 09/07/22 Ipratropium Neb [Atrovent*] 0.5 mg NEB Q12H #60 amp 09/07/22 Melatonin 5 mg PO BEDTIME PRN PRN #30 09/07/22 Midodrine HCl [Proamatine*] 5 mg PO TID #90 tab 09/07/22 traMADol HCL [Ultram*] 50 mg PO Q6H PRN #60 tab 09/07/22 - Past Medical/Surgical History Diabetic: Yes -: COPD -: DM II with polyneuropathy -: ESRD on HD -: HTN -: CAD s/p PCI -: HLD -: PAD/ AAA -: Diastolic CHF -: Anemia/ Iron Deficiency -: monoclonal gammopathy -: history of bladder cancer -: synovial chondromatosis -: Left Nephrectomy r/t 1994 -: Peripheral vascular disease Psychosocial/ Personal History: Patient is . - Family History Mother -: Heart disease, Lung disease - Social History Smoking Status: Former smoker Alcohol use: No CD- Drugs: No Caffeine use: Yes Place of Residence: Home Review of Systems 10-point ROS is otherwise unremarkable General: Fever, Chills Respiratory: Cough, Shortness of Breath Physical Examination - Physical Exam General: Alert, In no apparent distress, Oriented x3 HEENT: Atraumatic, PERRLA, Mucous membr. moist/pink, EOMI, Sclerae nonicteric Neck: Supple, 2+ carotid pulse no bruit, No LAD, Without JVD or thyroid abnormality Respiratory: Diminished Cardiovascular: No edema, Regular rate/rhythm, Normal S1 S2 Capillary refill: <2 Seconds Gastrointestinal: Normal bowel sounds, No tenderness Musculoskeletal: No tenderness Integumentary: No rashes Neurological: Normal speech, Normal strength at 5/5 x4 extr, Normal tone, Normal affect - Studies Laboratory Data (last 24 hrs) 10/26/22 19:10: PT 11.8, INR 1.07, APTT 32.7 10/26/22 19:10: Sodium 135 L, Potassium 4.0, BUN 25 H, Creatinine 3.67 H, Glucose 157 H, Total Bilirubin 0.4, AST 10 L, ALT 15 L, Alkaline Phosphatase 107 10/26/22 19:10: WBC 10.60, Hgb 11.0 L, Hct 33.4 L, Plt Count 258 Assessment and Plan - Plan Assessment: Sepsis secondary to left-sided pneumonia with concern for HCAP-history of MDR pneumonia/UTI COPD with exacerbation-on chronic home O22 L Paroxysmal atrial fibrillation on chronic anticoagulation Diabetes mellitus type 2 ESRD on HD TTS Diastolic congestive heart failure CAD status post PCI PAD Hypertension hyperlipidemia Plan: Sepsis secondary to left-sided pneumonia with concern for HCAP-history of MDR pneumonia/UTI Blood cultures, sputum culture, urine culture obtained. Broad-spectrum antibiotics including vancomycin/Merrem ordered. Infectious disease consulted, pulmonology consulted. CT ordered to further evaluate suspected pneumonia which is unchanged from previous imaging. COPD with exacerbation-on chronic home O22 L Urine nebulizer treatments, p.o. steroids, pulmonology consult, supplemental oxygen as needed. Paroxysmal atrial fibrillation on chronic anticoagulation Continue Eliquis, other home medications. Diabetes mellitus type 2 ACHS Accu-Chek, sliding scale insulin. ESRD on HD TTS Nephrology consulted, had dialysis today. Diastolic congestive heart failure Volume management with dialysis, does not appear overloaded at this time. Continue medication. CAD status post PCI PAD Hypertension hyperlipidemia Continue home medications DVT PPX: continue Eliquis Code status:Full Discharge Plan: Home Plan to discharge in: Greater than 2 days - Advance Directives Does patient have a Living Will: No Does patient have a Durable POA for Healthcare: No - Code Status/Comfort Care Code Status Assessed: Yes (Full code) Critical Care: No Time Spent Managing Pts Care (In Minutes): 70
[2022-10-26] MEDS: MIDODRINE HCL 5 MG TABLET PO SCH (21:00)
--- NOTE | 2022-10-26 21:16 | RAD REPORT ---
EXAM DESCRIPTION: CT - Thorax Wo Con - 10/26/2022 8:40 pm CLINICAL HISTORY: sob COMPARISON: July 15, 2022 TECHNIQUE: Computed axial tomography of the chest was obtained. Contrast was not requested. All CT scans are performed using dose optimization technique as appropriate and may include automated exposure control or mA/KV adjustment according to patient size. FINDINGS: The evaluation of mediastinum, dennis and vessels is limited secondary to lack of IV contras t administration. [id number] left lower lobe consolidation has mildly worsened Mild right lower lobe opacities have partially resolved. Mild mediastinal lymphadenopathy unchanged. Largest lymph node subcarinal region measuring 15 millime ters No pericardial effusion. Coronary arterial calcifications Minimal left pleural effusion Cholelithiasis. Gallbladder wall is not thickened. A 3.9 centimeter suprarenal abdominal aorta aneurysm. This was not imaged on the prior exam IMPRESSION: Mild to moderate left lower lobe pneumonia has mildly worsened. Bronchoscopy may be help ful to exclude an endobronchial lesion. Partial resolution in mild right lower lobe opacities Mild mediastinal lymphadenopathy could be reactive or neoplastic. 3.9 centimeter suprarenal abdominal aortic aneurysm. Follow-up ultrasound or CT in 2 years is recomme nded to assess stability
[2022-10-26] MEDS: INSULIN -REGULAR HUMAN 50 UNIT/0.5 ML ML SQ SCH (22:48)
[2022-10-26] MEDS ORDERED: HYDROCODONE/APAP 5/325 MG TAB PO PRN (22:49)
[2022-10-26] MEDS: Meropenem 1,000 MG in NA CHLORIDE 0.9% 100 ML IV SCH (23:00)
[2022-10-26] MEDS: ATORVASTATIN 40 MG TAB PO SCH (23:00)
[2022-10-26] MEDS: TAMSULOSIN 0.4 MG SR CAP PO SCH (23:00)
[2022-10-26] MEDS: GABAPENTIN 300 MG CAP PO SCH (23:00)
[2022-10-26 23:06] LABS: Urine Bacteria 20-50 /HPF (<20); Urine Mucus Slight /HPF (None Seen); Urine RBC 21-50 /HPF (None Seen); Urine WBC Clump Many /HPF (None Seen)
[2022-10-26] MEDS ORDERED: Meropenem 1000 MG/VIAL IV ONE (23:08)
[2022-10-26] MEDS ORDERED: GABAPENTIN 300 MG CAP ONE (23:09)
[2022-10-26] MEDS ORDERED: ATORVASTATIN 40 MG TAB ONE (23:09)
[2022-10-26] MEDS ORDERED: HYDROCODONE/APAP 5/325 MG TAB ONE (23:09)
[2022-10-26] MEDS ORDERED: TAMSULOSIN 0.4 MG SR CAP ONE (23:09)
[2022-10-26] MEDS ORDERED: INSULIN -REGULAR HUMAN 50 UNIT/0.5 ML ML ONE (23:10)
[2022-10-26] MEDS ORDERED: NA CHLORIDE 0.9% 100 ML ONE (23:10)
[2022-10-26 23:21] LABS: Urine Blood 2+ (Negative); Urine Glucose Negative (Negative); Urine Protein 3+ (Negative)
[2022-10-26] MEDS ORDERED: MIDODRINE HCL 5 MG TABLET ONE (23:38)
[2022-10-27 00:10] VITALS: BMI 27.3
[2022-10-27] MEDS ORDERED: VANCOMYCIN 2 GM in NA CHLORIDE 0.9% 500 ML IVPB ONE (01:00)
[2022-10-27] MEDS ORDERED: VANCOMYCIN 1 GM/VIAL ONE (02:22)
[2022-10-27] MEDS ORDERED: NA CHLORIDE 0.9% 250 ML ONE (02:23)
[2022-10-27 02:35] LABS: Absolute Lymphocytes (CBC) 0.2 K/uL (0.7-4.9); Hematocrit 30.9 % (39.6-49.0); Lymphocytes % 1.7 % (15.3-44.8); MCV 93.4 fL (80-100); MPV 7.5 fL (7.6-11.3); RBC Red Blood Cell Count 3.31 M/uL (4.33-5.43)
[2022-10-27 02:49] LABS: Potassium 3.8 mEq/L (3.5-5.1)
--- NOTE | 2022-10-27 07:15 | P.PN ---
Date of Service: 10/27/22 Subjective: Feeling much better than yesterday reports episodes of incontinence; frequent urge to urinate; >1yr no new symptoms ROS: 10 point ROS as noted above, otherwise negative Physical Exam: GEN: Alert, oriented, NAD HEENT: Normal conjunctiva, sclera anicteric CV: Regular rate and rhythm, no edema Pulm: mild labored respirations on room air ABD: Soft, nontender, nondistended Neuro: Normal speech, normal affect vitals reviewed Problem List: Severe Sepsis secondary to left-sided pneumonia with concern for HCAP-history of MDR pneumonia/UTI acute on chronic COPD with exacerbation-on chronic home O22 L Paroxysmal atrial fibrillation on chronic anticoagulation DM2 ESRD on HD TTS Diastolic congestive heart failure CAD status post PCI PAD Hypertension hyperlipidemia Severe Sepsis secondary to left-sided pneumonia with concern for HCAP-history of MDR pneumonia/UTI Blood cultures, sputum culture, urine culture obtained Broad-spectrum antibiotics including vancomycin/Merrem ordered ID consulted Pulmonology consulted, may benefit from bronchoscopy CT noted 3.9cm suprarenal AAA, discussed with patient and he was previously aware of this finding. Discussed recommendations for repeat CT scan in 2 years to assess stability. Lactate elevated overnight 10/26-10/27 peaking at 2.3, downtrending since starting medication Patients notes last colonoscopy was at least 5 years ago, discussed with pt need to see urologist after discharge for ongoing incontinence, and other urinary problems COPD with exacerbation-on chronic home O22 L continue nebulizer treatments p.o. steroids supplemental oxygen as needed. Paroxysmal atrial fibrillation on chronic anticoagulation continue home medications. DM2 ACHS Accu-Chek, sliding scale insulin. ESRD on HD TTS Diastolic congestive heart failure Nephrology consulted for dialysis Volume management with dialysis, does not appear overloaded at this time CAD status post PCI PAD Hypertension hyperlipidemia Continue home medications VTE: Eliquis Code: Full Dispo:Home ~48 hours
[2022-10-27] MEDS: INSULIN -REGULAR HUMAN 50 UNIT/0.5 ML ML SQ SCH ×4 (07:24→21:00)
[2022-10-27] MEDS: predniSONE 20 MG TAB PO SCH ×2 (07:46→16:38)
[2022-10-27] MEDS: ACETAMINOPHEN 500 MG TAB PO PRN (07:46)
[2022-10-27] MEDS ORDERED: predniSONE 20 MG TAB ONE (07:48)
[2022-10-27] MEDS ORDERED: ACETAMINOPHEN 500 MG TAB ONE (07:48)
[2022-10-27] MEDS: MIDODRINE HCL 5 MG TABLET PO SCH ×3 (09:00→21:00)
[2022-10-27] MEDS: PARoxetine HCL 10 MG TAB PO SCH (09:56)
[2022-10-27] MEDS: Meropenem 1,000 MG in NA CHLORIDE 0.9% 100 ML IV SCH (09:57)
[2022-10-27] MEDS: APIXABAN 2.5 MG TABLET PO SCH ×2 (09:57→21:02)
[2022-10-27] MEDS: allopurinoL 100 MG TAB PO SCH (09:57)
[2022-10-27] MEDS ORDERED: INFLUENZA VACCINE (for 6+ mo) 0.5 ML DOSE IMVAC ONE (10:00)
[2022-10-27] MEDS ORDERED: PNEUMOCOCCAL VACCINE 0.5 ML IMVAC ONE (10:00)
[2022-10-27] MEDS: FINASTERIDE 5 MG TAB PO SCH (10:10)
[2022-10-27] MEDS ORDERED: ALBUTEROL 2.5 MG/3 ML NEB SOL NEB PRN (11:00)
--- NOTE | 2022-10-27 16:56 | P.CNS ---
Date of Consult: 10/27/22 Reason for Consult: ESRD Requesting Physician: Rosales Saleh Chief Complaint: Sepsis, pneumonia, COPD exacerbation, ESRD History of Present Illness: 77-year-old male with history of recently declared ESRD with initiati on of HD within recent months, currently dialyzing at [facility] on a TTS basis with last HD yesterday which pt has tolerated well and reports adeq UF ranging from 1-3L on most treatments. Pt has chronic COPD on chronic home O2 although not continuously, paroxysmal atrial fibrillation on chronic anticoagulation, CAD with prior history of PCI, PAD, chronic diastolic congestive heart failure, hypertension, hyperlipidemia, diabetes mellitus type 2, BPH, UTI who presents to the emergency department yesterday with reports of worsening shortness of breath over the past few days. Pt was treated here not too long ago for MRSA UTI and ESBL E. coli pneumonia, after that hospitalization he was transferred to [facility] for a few weeks and subsequently discharged home. He was again admitted here on 09/04/2022 and treated for respiratory insufficiency and (recurrent) pneumonia subsequently discharged on 09/07/2022 Allergies codeine Allergy (Verified 08/08/21 02:36) Shortness of breath Sulfa (Sulfonamide Antibiotics) Allergy (Verified 08/08/21 02:36) Shortness of breath Home Medications: Atorvastatin Calcium 40 mg PO BEDTIME 08/02/18 Finasteride [Proscar*] 5 mg PO DAILY 08/02/18 Gabapentin 300 mg PO BEDTIME 08/02/18 Paroxetine HCl [Paxil] 20 mg PO DAILY 08/02/18 allopurinoL [Zyloprim*] 100 mg PO DAILY 08/03/18 Budesonide/Formoterol Fumarate [Symbicort 160-4.5 Mcg Inhaler] 2 puff IH BID #60 hfa.aer.ad 08/06/18 Cholecalciferol (Vitamin D3) [Vitamin D3] 25 mcg PO DAILY 08/08/21 Cyanocobalamin [Vitamin B-12*] 2,000 mcg PO DAILY 08/08/21 Ipratropium/Albuterol Sulfate [Combivent Respimat 20-100 Mcg] 1 puff IH Q6H PRN 08/08/21 Apixaban [Eliquis *] 2.5 mg PO BID #60 tablet 08/11/21 Furosemide [Lasix] 40 mg PO DAILY #30 tablet 08/11/21 Albuterol Neb [Proventil 0.083% Neb Soln] 3 ml NEB PRN PRN 09/04/22 Ipratropium Neb [Atrovent*] 2.5 ml NEB PRN PRN 09/04/22 Tamsulosin [Flomax*] 0.4 mg PO BEDTIME 09/04/22 Albuterol Neb [Proventil 0.083% Neb Soln] 2.5 mg NEB [id number] PRN #60 amp 09/07/22 Arformoterol Tartrate [Brovana] 15 mcg NEB BIDRESP #60 vial.neb 09/07/22 Cholecalciferol (Vitamin D3) [Vitamin D 1000 Iu Tab*] 1,000 unit PO DAILY #30 tab 09/07/22 Ipratropium Neb [Atrovent*] 0.5 mg NEB Q12H #60 amp 09/07/22 Melatonin 5 mg PO BEDTIME PRN PRN #30 09/07/22 Midodrine HCl [Proamatine*] 5 mg PO TID #90 tab 09/07/22 traMADol HCL [Ultram*] 50 mg PO Q6H PRN #60 tab 09/07/22 - Past Medical/Surgical History Diabetic: Yes -: COPD -: DM II with polyneuropathy -: ESRD on HD -: HTN -: CAD s/p PCI -: HLD -: PAD/ AAA -: Diastolic CHF -: Anemia/ Iron Deficiency -: monoclonal gammopathy -: history of bladder cancer -: synovial chondromatosis -: Left Nephrectomy r/t 1994 -: Peripheral vascular disease Psychosocial/ Personal History: Patient is . - Family History Mother Medical History: Heart disease, Lung disease - Social History Smoking Status: Current every day smoker Alcohol use: No CD- Drugs: No Caffeine use: Yes Place of Residence: Home Review of Systems General: Weakness Respiratory: Cough, Shortness of Breath, SOB with Excertion Cardiovascular: As per HPI Gastrointestinal: Unremarkable Genitourinary: As per HPI (Abnormal UA, pt reports urine specimen was small concentrated void given HD earlier) Musculoskeletal: Other (Chronic weakness, ambulates minimally), Unremarkable Neurological: Weakness Physical Examination Temp Pulse Resp BP Pulse Ox 97.0 F 96 H 20 118/72 100 10/27/22 12:00 10/27/22 12:00 10/27/22 12:00 10/27/22 12:00 10/27/22 12:00 General: Alert, In no apparent distress, Oriented x3 HEENT: Atraumatic, Normocephalic, Other (NC present) Neck: Other (Rt IJ TDC) Respiratory: Other (Non tachypnec, b/l air entry with dimished BS Lt mid and base) Cardiovascular: Other (Non tachy, no cardiac gallop heart sounds) Gastrointestinal: Soft and benign, No ascites, No tenderness Musculoskeletal: No swelling, No contractures, No erythema Integumentary: No rashes, No significant lesion Neurological: Normal speech, Normal tone, Normal affect Laboratory Data (last 24 hrs) 10/26/22 19:10: PT 11.8, INR 1.07, APTT 32.7 10/26/22 19:10: Sodium 135 L, Potassium 4.0, BUN 25 H, Creatinine 3.67 H, Glucose 157 H, Total Bilirubin 0.4, AST 10 L, ALT 15 L, Alkaline Phosphatase 107 10/26/22 19:10: WBC 10.60, Hgb 11.0 L, Hct 33.4 L, Plt Count 258 Conclusions/Impression: A/P) 1. ESRD with recently initiated HD in the setting of progressive CKD, solitary kidney state with acquired absence of left kidney. Last HD Sat, metab profile stable, will plan for iHD TTS unless a need for additional dialysis emerges 2. Acute on chronic hypoxic respiratory insufficiency, recurrent PNA unspecified organism. Chest CT reported, prior Rt sided opacities better per reports but left sided one worsened. Pt also has some non specific LAD, would benefit from Pulm eval, possible bronch. F/u cultures. 3. Empiric Abx per primary team, dose for reduced CrCl 4. No current signs of hypervolemia, no large pleural effusions. Maintain EDW 5. Abnormal findings in urine, unspecified. Large no of epithelial cells on specimen. Pt reports sediment in urine without other symptoms. Bladder may be colonized. 6. Acceptable BP range. 7. Anemia 2nd to CKD -improved from a few mo ago, current Hb > 10 [place] MD, BRISSA
[2022-10-27] MEDS: Meropenem 500 MG in NA CHLORIDE 0.9% 100 ML IV SCH (21:00)
[2022-10-27] MEDS: TAMSULOSIN 0.4 MG SR CAP PO SCH (21:02)
[2022-10-27] MEDS: ATORVASTATIN 40 MG TAB PO SCH (21:03)
[2022-10-27] MEDS: GABAPENTIN 300 MG CAP PO SCH (21:03)
[2022-10-27] MEDS: HYDROCODONE/APAP 5/325 MG TAB PO PRN (21:59)
[2022-10-27 22:17] LABS: Specific Gravity 1.012 (1.005-1.030); Urine Bacteria <20 /HPF (<20); Urine Bilirubin NEGATIVE (Negative); Urine Blood 2+ (Negative); Urine Clarity Turbid (Clear); Urine Color Light-Yellow (Yellow); Urine Glucose 1+ (Negative); Urine Protein 1+ (Negative); Urine Urobilinogen Normal (Normal); Urine WBC Clump Few /HPF (None Seen)
[2022-10-28 02:12] LABS: Absolute Lymphocytes (CBC) 0.6 K/uL (0.7-4.9); Hematocrit 32.5 % (39.6-49.0); Lymphocytes % 4.4 % (15.3-44.8); MCV 93.6 fL (80-100); MPV 7.4 fL (7.6-11.3); RBC Red Blood Cell Count 3.48 M/uL (4.33-5.43)
[2022-10-28 02:32] LABS: Potassium 4.7 mEq/L (3.5-5.1)
[2022-10-28] MEDS ORDERED: VANCOMYCIN 1.5 GM in NA CHLORIDE 0.9% 500 ML IVPB SCH (03:00)
[2022-10-28] MEDS: HYDROCODONE/APAP 5/325 MG TAB PO PRN ×4 (03:01→20:46)
--- NOTE | 2022-10-28 07:06 | P.PN ---
Date of Service: 10/28/22 Subjective: continuing to improve today pain is much more tolerable this morning tolerating diet down to room air no new symptoms ROS: 10 point ROS as noted above, otherwise negative Physical Exam: GEN: Alert, oriented, NAD HEENT: Normal conjunctiva, sclera anicteric CV: Regular rate and rhythm, no edema Pulm: mild labored respirations on room air ABD: Soft, nontender, nondistended Neuro: Normal speech, normal affect vitals reviewed Problem List: Severe Sepsis secondary to left-sided pneumonia with concern for HCAP-history of MDR pneumonia/UTI acute on chronic COPD with exacerbation-on chronic home O22 L Paroxysmal atrial fibrillation on chronic anticoagulation DM2 ESRD on HD TTS Diastolic congestive heart failure CAD status post PCI PAD Hypertension hyperlipidemia Severe Sepsis secondary to left-sided pneumonia with concern for HCAP-history of MDR pneumonia/UTI Blood cultures, sputum culture, urine culture obtained Broad-spectrum antibiotics including vancomycin/Merrem ordered h/o ESBL and MRSA ID consulted Pulmonology consulted, may benefit from bronchoscopy CT noted 3.9cm suprarenal AAA, discussed with patient and he was previously aware of this finding. Discussed recommendations for repeat CT scan in 2 years to assess stability. Lactate elevated overnight 10/26-10/27 peaking at 2.3, downtrending since starting medication Patients notes last colonoscopy was at least 5 years ago, discussed with pt need to see urologist after discharge for ongoing incontinence, and other urinary problems COPD with exacerbation-on chronic home O22 L continue nebulizer treatments p.o. steroids supplemental oxygen as needed. Paroxysmal atrial fibrillation on chronic anticoagulation continue home medications. DM2 ACHS Accu-Chek, sliding scale insulin. ESRD on HD TTS Diastolic congestive heart failure Nephrology consulted for dialysis Volume management with dialysis, does not appear overloaded at this time CAD status post PCI PAD Hypertension hyperlipidemia Continue home medications VTE: Eliquis Code: Full Dispo:Home ~48 hours
[2022-10-28] MEDS: INSULIN -REGULAR HUMAN 50 UNIT/0.5 ML ML SQ SCH ×4 (07:30→20:47)
[2022-10-28] MEDS: Meropenem 500 MG in NA CHLORIDE 0.9% 100 ML IV SCH ×2 (08:09→20:47)
[2022-10-28] MEDS: allopurinoL 100 MG TAB PO SCH (08:11)
[2022-10-28] MEDS: FINASTERIDE 5 MG TAB PO SCH (08:12)
[2022-10-28] MEDS: predniSONE 20 MG TAB PO SCH ×2 (08:12→16:42)
[2022-10-28] MEDS: PARoxetine HCL 10 MG TAB PO SCH (08:12)
[2022-10-28] MEDS: APIXABAN 2.5 MG TABLET PO SCH ×2 (08:12→20:45)
[2022-10-28] MEDS: MIDODRINE HCL 5 MG TABLET PO SCH ×3 (08:12→20:46)
--- NOTE | 2022-10-28 12:44 | CON ---
History Of Present Illness: This is a 77-year-old male, coming in with pneumonia, had leukocytosis, anemia of chronic disease. Patient with end-stage renal disease, on dialysis. Feels much better tod ay. Currently, patient is being treated with meropenem and vancomycin. Denies any headache, nausea, vomiting, chest pain, abdominal pain, constipation, or diarrhea. Patient came to the emergency room with shortness of breath. Past Medical History: As per HPI. Social History: Tobacco: Positive for 50 years, 3 pack per day, quit 10 years ago. Alcohol: Negat germaine. Family History: Noncontributory. Medications: Meropenem and vancomycin. See MAR for other medications. Allergies: CODEINE AND SULFA DRUGS. Review of Systems: A 10-point review was performed. Physical Examination: General: This is a 77-year-old male, sitting in bed, not in any acute cardiopulmonary distress. Vital Signs: Temperature 97, pulse 80, respirations 17, blood pressure 132/75. HEENT: Unremarkable. Neck: Supple. Lungs: Basal crackles. Heart: S1, S2. Regular. Abdomen: Soft, nontender. Bowel sounds present. Extremities: No edema. Laboratory Data: Shows WBC 14, hemoglobin 10.5, platelets 254. Chemistry shows BUN 67, creatinine 5 .4. Albumin level is 3. Currently, patient is on meropenem and vancomycin. Sputum cultures are alfred wing gram-negative rods. Assessment And Plan: Pneumonitis secondary to gram-negative rods. We will recommend to stop vancomy carlitos. Continue meropenem. Patient is improving significantly. Leukocytosis, anemia of chronic disea se, moderate protein-calorie malnourishment, end-stage renal disease, AV tobacco use in the past. Im proving. We will follow the patient closely. Thank you, Dr. Wallis for consult. NF/MODL Voice ID: [id number] Report ID: [id number]
--- NOTE | 2022-10-28 12:45 | P.CNS ---
Date of Consult: 10/28/22 Reason for Consult: Respiratory distress Chief Complaint: Respiratory distress History of Present Illness: Patient is 77 years of age and end-stage renal disease on hemodialysis COPD A- fib on chronic anticoagulation multiple other medical problems including heart failure hypertension diabetes admitted to the hospital with fever and worsening shortness of breath pliant with his dialysis planing of some low-grade fever July dialysis was initiated and was treated for MRSA ESBL also went to LT[facility] for 2-week he is doing a bit better right now Allergies codeine Allergy (Verified 08/08/21 02:36) Shortness of breath Sulfa (Sulfonamide Antibiotics) Allergy (Verified 08/08/21 02:36) Shortness of breath Home Medications: Atorvastatin Calcium 40 mg PO BEDTIME 08/02/18 Finasteride [Proscar*] 5 mg PO DAILY 08/02/18 Gabapentin 300 mg PO BEDTIME 08/02/18 Paroxetine HCl [Paxil] 20 mg PO DAILY 08/02/18 allopurinoL [Zyloprim*] 100 mg PO DAILY 08/03/18 Budesonide/Formoterol Fumarate [Symbicort 160-4.5 Mcg Inhaler] 2 puff IH BID #60 hfa.aer.ad 08/06/18 Cholecalciferol (Vitamin D3) [Vitamin D3] 25 mcg PO DAILY 08/08/21 Cyanocobalamin [Vitamin B-12*] 2,000 mcg PO DAILY 08/08/21 Ipratropium/Albuterol Sulfate [Combivent Respimat 20-100 Mcg] 1 puff IH Q6H PRN 08/08/21 Apixaban [Eliquis *] 2.5 mg PO BID #60 tablet 08/11/21 Furosemide [Lasix] 40 mg PO DAILY #30 tablet 08/11/21 Albuterol Neb [Proventil 0.083% Neb Soln] 3 ml NEB PRN PRN 09/04/22 Ipratropium Neb [Atrovent*] 2.5 ml NEB PRN PRN 09/04/22 Tamsulosin [Flomax*] 0.4 mg PO BEDTIME 09/04/22 Albuterol Neb [Proventil 0.083% Neb Soln] 2.5 mg NEB [id number] PRN #60 amp 09/07/22 Arformoterol Tartrate [Brovana] 15 mcg NEB BIDRESP #60 vial.neb 09/07/22 Cholecalciferol (Vitamin D3) [Vitamin D 1000 Iu Tab*] 1,000 unit PO DAILY #30 tab 09/07/22 Ipratropium Neb [Atrovent*] 0.5 mg NEB Q12H #60 amp 09/07/22 Melatonin 5 mg PO BEDTIME PRN PRN #30 09/07/22 Midodrine HCl [Proamatine*] 5 mg PO TID #90 tab 09/07/22 traMADol HCL [Ultram*] 50 mg PO Q6H PRN #60 tab 09/07/22 - Past Medical/Surgical History Diabetic: Yes -: COPD -: DM II with polyneuropathy -: ESRD on HD -: HTN -: CAD s/p PCI -: HLD -: PAD/ AAA -: Diastolic CHF -: Anemia/ Iron Deficiency -: monoclonal gammopathy -: history of bladder cancer -: synovial chondromatosis -: Left Nephrectomy r/t - 1994 -: Peripheral vascular disease Psychosocial/ Personal History: Patient is . - Family History Mother Medical History: Heart disease, Lung disease - Social History Smoking Status: Current every day smoker Alcohol use: No CD- Drugs: No Caffeine use: Yes Place of Residence: Home Review of Systems 10-point ROS is otherwise unremarkable Respiratory: Shortness of Breath Physical Examination Temp Pulse Resp BP Pulse Ox 96.5 F L 80 17 132/75 98 10/28/22 08:00 10/28/22 08:00 10/28/22 10:36 10/28/22 08:00 10/28/22 10:36 General: Alert, In no apparent distress, Oriented x3 HEENT: Other Respiratory: Clear to auscultation bilaterally, Diminished Cardiovascular: No edema, Regular rate/rhythm, Normal S1 S2 - Problems (1) Pneumonia Current Visit: Yes Status: Acute Plan: Patient is 77 years of age admitted with cute onset of respiratory distress he does have a left lower lobe infiltrate presumed pneumonia no fever since admission vital signs stable blood pressure satisfactory sputum culture shows 2+ gram-negative rods he was treated for MRSA ESBL in July White count is mildly elevated stage renal disease on dialysis patient has improved since admission patient is on bronchodilators at home vital signs oxygenation satisfactory can DC vancomycin blood cultures all negative awaiting sensitivity from sputum culture changed to scheduled ipratropium BNP is elevated is around 6003 echocardiogram ordered Qualifiers: Pneumonia type: due to unspecified organism
[2022-10-28] MEDS: IPRATROPIUM BROM 0.5MG/2.5ML NEB SCH ×2 (14:00→20:20)
--- NOTE | 2022-10-28 17:38 | EKG ---
Test Date: 2022-10-26 Test Time: 19:22:58 [employer] Ware[employer] Driver: TITUS MEASUREMENT RESULTS: Intervals: Rate: 94 WV: 176 QRSD: 92 QT: 334 QTc: 417 [place]: P: WV: 176 QRS: 61 T: 42 INTERPRETIVE STATEMENTS: Sinus rhythm with marked sinus arrhythmia Possible Anterior infarct, age undetermined Abnormal ECG Compared to ECG 09/04/2022 00:02:59 Myocardial infarct finding now present Electronically Signed On 10-28-22 17:35:57 CDT by Deepak Goodrich
--- NOTE | 2022-10-28 20:43 | P.PN ---
Date of Service: 10/28/22 Vital Signs Temp Pulse Resp BP Pulse Ox 97.1 F 89 17 163/94 H 93 10/28/22 16:00 10/28/22 16:00 10/28/22 16:19 10/28/22 16:00 10/28/22 16:19 Medications Acetaminophen (Acetaminophen 500 Mg Tab) 500 mg PO Q4HP PRN PRN Reason: TEMP > 100' F Last Admin: 10/27/22 07:46 Dose: 500 mg Hydrocodone Bitart/Acetaminophen (Hydrocodone/Apap 5/325 Mg Tab) 1 tab PO Q6H PRN PRN Reason: Pain scale 5-7 (Moderate) Last Admin: 10/28/22 15:19 Dose: 1 tab Albuterol Sulfate (Albuterol 2.5 Mg/3 Ml Neb Nanda) 2.5 mg NEB [id number] PRN PRN Reason: SHORTNESS OF BREATH Last Admin: 10/27/22 20:20 Dose: 2.5 mg Allopurinol (Allopurinol 100 Mg Tab) 100 mg PO DAILY [facility] Last Admin: 10/28/22 08:11 Dose: 100 mg Apixaban (Apixaban 2.5 Mg Tablet) 2.5 mg PO BID [facility] Last Admin: 10/28/22 08:12 Dose: 2.5 mg Atorvastatin Calcium (Atorvastatin 40 Mg Tab) 40 mg PO BEDTIME SARAH Last Admin: 10/27/22 21:03 Dose: 40 mg Finasteride (Finasteride 5 Mg Tab) 5 mg PO DAILY [facility] Last Admin: 10/28/22 08:12 Dose: 5 mg Gabapentin (Gabapentin 300 Mg Cap) 300 mg PO BEDTIME [facility] Last Admin: 10/27/22 21:03 Dose: 300 mg Meropenem 500 mg/ Sodium (Chloride) 100 mls @ 200 mls/hr IV Q12HR [facility] Last Admin: 10/28/22 08:09 Dose: 100 mls Insulin Human Regular (Insulin -Regular Human 50 Unit/0.5 Ml Ml) 0 unit SQ ACHS [facility]; Protocol Last Admin: 10/28/22 16:11 Dose: Not Given Ipratropium [place] (Ipratropium Brom 0.5mg/2.5ml) 0.5 mg NEB [id number] [facility] Last Admin: 10/28/22 14:00 Dose: Not Given Melatonin (Melatonin 5 Mg Tablet) 5 mg PO BEDTIME PRN PRN PRN Reason: INSOMNIA Midodrine (Midodrine Hcl 5 Mg Tablet) 5 mg PO TID [facility] Last Admin: 10/28/22 13:43 Dose: Not Given Ondansetron HCl (Ondansetron 4 Mg/2 Ml Vial) 4 mg IV Q6HP PRN PRN Reason: NAUSEA / VOMITING Paroxetine HCl (Paroxetine Hcl 10 Mg Tab) 20 mg PO DAILY [facility] Last Admin: 10/28/22 08:12 Dose: 20 mg Prednisone (Prednisone 20 Mg Tab) 20 mg PO BIDWM [facility] Last Admin: 10/28/22 16:42 Dose: 20 mg Sodium Chloride (Flush Normal Saline 10 Ml) 10 ml IV BID [facility] Last Admin: 10/28/22 08:12 Dose: 10 ml Tamsulosin HCl (Tamsulosin 0.4 Mg Sr Cap) 0.4 mg PO BEDTIME [facility] Last Admin: 10/27/22 21:02 Dose: 0.4 mg Microbiology Results 10/26/22 20:23 Blood - Blood Aerobic Blood Culture - Preliminary No growth in 24 hours. 10/26/22 20:23 Blood - Blood Anaerobic Blood Culture - Preliminary No growth in 24 hours. 10/26/22 19:10 Blood - Blood Aerobic Blood Culture - Preliminary No growth in 24 hours. 10/26/22 19:10 Blood - Blood Anaerobic Blood Culture - Preliminary No growth in 24 hours. Assessment/ Plan: Nephrology No dyspnea No chest pain Feeling better No acute events overnight Vitals, medications, blood work and imaging reviewed in the chart. NAD. NCAT. MMM. Neck supple. Normal respiratory effort. RRR. Abd ND. No C/C. LE Edema none. No rash. AAO. Normal speech. ESRD on HD -HD TIW Chronic hypotension -Continue Midodrine Diastolic CHF, chronic -Daily weight -HD with UF DM II with CKD -RISS Anemia in CKD -Retacrit prn CKD MBD -Start Ergo BPH with LUTS -Continue tamsulosin Lobar PNA -Continue PNA Case reviewed with Dr. Ibarra
[2022-10-28] MEDS: TAMSULOSIN 0.4 MG SR CAP PO SCH (20:45)
[2022-10-28] MEDS: GABAPENTIN 300 MG CAP PO SCH (20:46)
[2022-10-28] MEDS ORDERED: MANNITOL 25% 12.5 GM/50 ML VIAL IV PRN (20:46)
[2022-10-28] MEDS ORDERED: NA CHLORIDE 0.9% 1,000 ML IV PRN (20:46)
[2022-10-28] MEDS: ATORVASTATIN 40 MG TAB PO SCH (20:46)
[2022-10-28] MEDS ORDERED: ALBUMIN HUMAN 25% 50 ML IV PRN (21:00)
[2022-10-29] MEDS: IPRATROPIUM BROM 0.5MG/2.5ML NEB SCH ×4 (01:30→19:25)
[2022-10-29] MEDS: HYDROCODONE/APAP 5/325 MG TAB PO PRN ×4 (03:31→22:01)
[2022-10-29 03:47] LABS: Absolute Lymphocytes (CBC) 0.9 K/uL (0.7-4.9); Hematocrit 34.8 % (39.6-49.0); Lymphocytes % 6.5 % (15.3-44.8); MCV 93.8 fL (80-100); MPV 7.2 fL (7.6-11.3); RBC Red Blood Cell Count 3.71 M/uL (4.33-5.43)
[2022-10-29 04:10] LABS: Potassium 4.6 mEq/L (3.5-5.1)
[2022-10-29 05:12] LABS: Blood Morphology Comment NOT SEEN (NOT SEEN); Platelet Estimate ADEQ
[2022-10-29] MEDS: INSULIN -REGULAR HUMAN 50 UNIT/0.5 ML ML SQ SCH ×4 (07:30→20:48)
[2022-10-29] MEDS: MIDODRINE HCL 5 MG TABLET PO SCH ×4 (09:00→20:49)
[2022-10-29] MEDS: allopurinoL 100 MG TAB PO SCH (09:37)
[2022-10-29] MEDS: PARoxetine HCL 10 MG TAB PO SCH (09:38)
[2022-10-29] MEDS: APIXABAN 2.5 MG TABLET PO SCH ×2 (09:38→21:01)
[2022-10-29] MEDS: FINASTERIDE 5 MG TAB PO SCH (09:38)
[2022-10-29] MEDS: Meropenem 500 MG in NA CHLORIDE 0.9% 100 ML IV SCH ×2 (09:38→21:01)
[2022-10-29] MEDS: predniSONE 20 MG TAB PO SCH ×2 (09:39→16:02)
--- NOTE | 2022-10-29 12:54 | ECHO ---
HEIGHT: 5 ft 9 in WEIGHT: 185 lb 0 oz DATE OF STUDY: 10/29/[address]: Sudhakar Garcia MD 2-DIMENSIONAL: YES M.MODE: YES DOPPLER: YES COLOR FLOW: YES TDS: PORTABLE: YES DEFINITY: BUBBLE STUDY: DIAGNOSIS: RESPIRATORY DISTRESS/ CONGESTIVE HEART FAILURE CARDIAC HISTORY: CATHERIZATION: YES SURGERY: PROSTHETIC VALVE: PACEMAKER: MEASUREMENTS (cm) DIASTOLIC (NORMALS) SYSTOLIC (NORMALS) IVSd 1.0 (0.6-1.2) LA Diam 3.8 (1.9-4.0) LVEF 56% LVIDd 5.2 (3.5-5.7) LVIDs 3.7 (2.0-3.5) %FS 30% LVPWd 1.1 (0.6-1.2) Ao Diam 3.1 (2.0-3.7) 2 DIMENSIONAL ASSESSMENT: RIGHT ATRIUM: NORMAL LEFT ATRIUM: NORMAL RIGHT VENTRICLE: NORMAL LEFT VENTRICLE: NORMAL TRICUSPID VALVE: TRACE TRICUSPID REGURGITATION MITRAL VALVE: MILD MITRAL REGURGITATION PULMONIC VALVE: NORMAL AORTIC VALVE: MILD AORTIC INSUFFICIENCY PERICARDIAL EFFUSION: NONE AORTIC ROOT: NORMAL LEFT VENTRICULAR WALL MOTION: NORMAL DOPPLER/COLOR FLOW: SEE BELOW COMMENTS: 1. NORMAL LEFT VENTRICULAR EJECTION FRACTION 55-60% 2. NORMAL WALL MOTION 3. MILD MITRAL REGURGITATION, AORTIC INSUFFICIENCY, TRICUSPID REGURGITATION 4. CALCIFIED AORTIC VALVE, NO AORTIC STENOSIS TECHNOLOGIST: EILEEN APARICIO
--- NOTE | 2022-10-29 15:31 | P.PN ---
Subjective Date of Service: 10/29/22 Chief Complaint: Respiratory distress Patient denies any complaint today. He denies any shortness of breath. He denies any fever. Physical Examination - Vital Signs Temperature: 98.3 F Blood Pressure: 162/77 Pulse: 93 Respirations: 18 Pulse Ox (%): 96 Assessment And Plan - Plan Physical Exam: GEN: Alert, oriented, NAD CV: Regular rate and rhythm, no edema Pulm: Clear to auscultation bilaterally, adequate breath sounds bilaterally. ABD: Soft, nontender, nondistended Neuro: Normal speech, no focal motor deficit. vitals reviewed Problem List: Severe Sepsis secondary to left-sided ESBL E. coli pneumonia. acute on chronic COPD with exacerbation Chronic respiratory failure with hypoxia. Paroxysmal atrial fibrillation Chronic anticoagulation DM2 ESRD on HD TTS Chronic diastolic congestive heart failure CAD status post PCI PAD Hypertension hyperlipidemia Severe Sepsis secondary to left-sided ESBL E. coli pneumonia/MRSA UTI Blood cultures: No growth to date. Sputum culture is growing ESBL E. coli. Urine culture;MRSA Infectious disease input appreciated. Antibiotics scaled down to IV Merrem. I will add oral doxycycline for MRSA UTI. Pulmonology is following CT noted 3.9cm suprarenal AAA. Patient is aware he is supposed to follow up as outpatient. Patient informed to follow-up with urologist as outpatient regarding urine incontinence and recurrent UTI. ESBL E. coli is sensitive to tobramycin and gentamicin. Will discuss with infectious disease gentamicin during dialysis as an option. COPD with exacerbation-on chronic home O22 L continue nebulizer treatments p.o. steroids supplemental oxygen as needed. Pulmonary input appreciated Paroxysmal atrial fibrillation on chronic anticoagulation continue home medications. DM2 ACHS Accu-Chek, sliding scale insulin. ESRD on HD TTS Diastolic congestive heart failure Nephrology consulted for dialysis Volume management with dialysis. He appears compensated for CHF. CAD status post PCI PAD Hypertension hyperlipidemia Continue home medications VTE: Eliquis Code: Full Dispo: Home.
--- NOTE | 2022-10-29 20:03 | P.PN ---
Date of Service: 10/29/22 Vital Signs Temp Pulse Resp BP Pulse Ox 97.6 F 76 18 117/80 95 10/29/22 16:00 10/29/22 16:00 10/29/22 16:00 10/29/22 16:00 10/29/22 16:00 Medications Acetaminophen (Acetaminophen 500 Mg Tab) 500 mg PO Q4HP PRN PRN Reason: TEMP > 100' F Last Admin: 10/27/22 07:46 Dose: 500 mg Hydrocodone Bitart/Acetaminophen (Hydrocodone/Apap 5/325 Mg Tab) 1 tab PO Q6H PRN PRN Reason: Pain scale 5-7 (Moderate) Last Admin: 10/29/22 15:59 Dose: 1 tab Albuterol Sulfate (Albuterol 2.5 Mg/3 Ml Neb Nanda) 2.5 mg NEB [id number] PRN PRN Reason: SHORTNESS OF BREATH Last Admin: 10/27/22 20:20 Dose: 2.5 mg Allopurinol (Allopurinol 100 Mg Tab) 100 mg PO DAILY [facility] Last Admin: 10/29/22 09:37 Dose: 100 mg Apixaban (Apixaban 2.5 Mg Tablet) 2.5 mg PO BID [facility] Last Admin: 10/29/22 09:38 Dose: 2.5 mg Atorvastatin Calcium (Atorvastatin 40 Mg Tab) 40 mg PO BEDTIME [facility] Last Admin: 10/28/22 20:46 Dose: 40 mg Finasteride (Finasteride 5 Mg Tab) 5 mg PO DAILY [facility] Last Admin: 10/29/22 09:38 Dose: 5 mg Gabapentin (Gabapentin 300 Mg Cap) 300 mg PO BEDTIME [facility] Last Admin: 10/28/22 20:46 Dose: 300 mg Guaifenesin (Guaifenesin 600 Mg Sa Tab) 600 mg PO BID [facility] Stop: 11/01/22 21:01 Heparin Sodium (Porcine) (Heparin 1,000 Unit/Ml Vial) 2,000 unit IV EVERY HD PRN PRN Reason: Prevent Lines Clotting Last Admin: 10/29/22 11:57 Dose: 2,000 unit Heparin Sodium (Porcine) (Heparin 1,000 Unit/Ml Vial) 4,000 unit IV EVERY HD PRN PRN Reason: FOR DIALYSIS CATHETER CARE Last Admin: 10/29/22 15:02 Dose: 4,000 unit Meropenem 500 mg/ Sodium (Chloride) 100 mls @ 200 mls/hr IV Q12HR [facility] Last Admin: 10/29/22 09:38 Dose: 100 mls Albumin Human (Albumin 25%) 50 mls @ 100 mls/hr IV EVERY HD PRN PRN Reason: SEE COMMENTS Insulin Human Regular (Insulin -Regular Human 50 Unit/0.5 Ml Ml) 0 unit SQ ACHS [facility]; Protocol Last Admin: 10/29/22 16:30 Dose: Not Given Ipratropium [place] (Ipratropium Brom 0.5mg/2.5ml) 0.5 mg NEB [id number] [facility] Last Admin: 10/29/22 14:00 Dose: Not Given Mannitol (Mannitol 25% 12.5 Gm/50 Ml Vial) 12.5 gm IV EVERY HD PRN PRN Reason: Titrate to SBP (MUST DEFINE) Melatonin (Melatonin 5 Mg Tablet) 5 mg PO BEDTIME PRN PRN PRN Reason: INSOMNIA Midodrine (Midodrine Hcl 5 Mg Tablet) 5 mg PO TID [facility] Last Admin: 10/29/22 14:00 Dose: Not Given Ondansetron HCl (Ondansetron 4 Mg/2 Ml Vial) 4 mg IV Q6HP PRN PRN Reason: NAUSEA / VOMITING Paroxetine HCl (Paroxetine Hcl 10 Mg Tab) 20 mg PO DAILY [facility] Last Admin: 10/29/22 09:38 Dose: 20 mg Prednisone (Prednisone 20 Mg Tab) 20 mg PO BIDWM [facility] Last Admin: 10/29/22 16:02 Dose: 20 mg Sodium Chloride (Flush Normal Saline 10 Ml) 10 ml IV BID [facility] Last Admin: 10/29/22 09:00 Dose: Not Given Tamsulosin HCl (Tamsulosin 0.4 Mg Sr Cap) 0.4 mg PO BEDTIME [facility] Last Admin: 10/28/22 20:45 Dose: 0.4 mg Microbiology Results 10/26/22 20:23 Blood - Blood Aerobic Blood Culture - Preliminary No growth in 24 hours. 10/26/22 20:23 Blood - Blood Anaerobic Blood Culture - Preliminary No growth in 24 hours. 10/26/22 19:10 Blood - Blood Aerobic Blood Culture - Preliminary No growth in 24 hours. 10/26/22 19:10 Blood - Blood Anaerobic Blood Culture - Preliminary No growth in 24 hours. Assessment/ Plan: Nephrology No dyspnea No chest pain Increased sputum production Feeling better No acute events overnight Vitals, medications, blood work and imaging reviewed in the chart. NAD. NCAT. MMM. Neck supple. Normal respiratory effort. RRR. Abd ND. No C/C. LE Edema none. No rash. AAO. Normal speech. ESRD on HD -HD TIW Chronic hypotension -Continue Midodrine Diastolic CHF, chronic -Daily weight -HD with UF DM II with CKD -RISS Anemia in CKD -Retacrit prn CKD MBD -Continue Ergo BPH with LUTS -Continue tamsulosin Lobar PNA -Continue PNA -E.coli ESBL followed by ID -Start Mucinex Case reviewed with Dr. Espinal
[2022-10-29] MEDS ORDERED: NA CHLORIDE 0.9% 100 ML ONE (20:50)
[2022-10-29] MEDS ORDERED: Meropenem 1000 MG/VIAL IV ONE (20:52)
[2022-10-29] MEDS: GUAIFENESIN 600 MG SA TAB PO SCH (21:01)
[2022-10-29] MEDS: TAMSULOSIN 0.4 MG SR CAP PO SCH (21:01)
[2022-10-29] MEDS: ATORVASTATIN 40 MG TAB PO SCH (21:01)
[2022-10-29] MEDS: GABAPENTIN 300 MG CAP PO SCH (21:01)
[2022-10-30] MEDS: IPRATROPIUM BROM 0.5MG/2.5ML NEB SCH ×4 (01:30→20:20)
[2022-10-30 01:59] LABS: Absolute Lymphocytes (CBC) 0.9 K/uL (0.7-4.9); Hematocrit 32.5 % (39.6-49.0); Lymphocytes % 10.5 % (15.3-44.8); MCV 93.2 fL (80-100); RBC Red Blood Cell Count 3.48 M/uL (4.33-5.43)
[2022-10-30] MEDS: HYDROCODONE/APAP 5/325 MG TAB PO PRN ×4 (04:46→22:24)
[2022-10-30] MEDS: INSULIN -REGULAR HUMAN 50 UNIT/0.5 ML ML SQ SCH ×4 (07:30→20:43)
[2022-10-30] MEDS: MIDODRINE HCL 5 MG TABLET PO SCH ×3 (08:28→20:43)
[2022-10-30] MEDS: GUAIFENESIN 600 MG SA TAB PO SCH ×2 (09:22→20:43)
[2022-10-30] MEDS: predniSONE 20 MG TAB PO SCH ×2 (09:22→16:43)
[2022-10-30] MEDS: APIXABAN 2.5 MG TABLET PO SCH ×2 (09:22→20:43)
[2022-10-30] MEDS: FINASTERIDE 5 MG TAB PO SCH (09:22)
[2022-10-30] MEDS: PARoxetine HCL 10 MG TAB PO SCH (09:22)
[2022-10-30] MEDS: Meropenem 500 MG in NA CHLORIDE 0.9% 100 ML IV SCH ×2 (09:23→20:42)
[2022-10-30] MEDS: allopurinoL 100 MG TAB PO SCH (09:23)
--- NOTE | 2022-10-30 09:32 | P.PN ---
Subjective Date of Service: 10/30/22 Chief Complaint: Respiratory distress Patient sitting in bed with no chest pain, shortness of breath, distress, nausea, vomiting, diarrhea, or constipation. No other major event upon examination Physical Examination - Vital Signs Temperature: 97.5 F Blood Pressure: 152/82 Pulse: 68 Respirations: 18 Pulse Ox (%): 97 - Physical Exam General: Alert, In no apparent distress, Oriented x3 Respiratory: Clear to auscultation bilaterally, Normal air movement Cardiovascular: No edema, Irregular heart rate/rhythm (A-fib) Gastrointestinal: Normal bowel sounds Musculoskeletal: No swelling, No tenderness Integumentary: No rashes, No breakdown Neurological: Normal speech, Normal tone, Normal affect Assessment And Plan - Current Problems (Diagnosis) (1) Pneumonia Plan: Cultures: - 10/26 Sputum: ESBL E. Coli, susceptible to Meropenem Antibiotics: - On IV Meroepenem (10/27- ) Recommendations: - Continue IV Meropemen for total of 2 weeks (2) UTI (urinary tract infection) Plan: Cultures: - 10/26 UC: Meth Resistant Staph aureus (MRSA), susceptible to Tetracycline, Nitrofurantoin, Vancomycin Antibiotics: - On IV Meroepenem (10/27- ) Recommendations: - Add Vancomycin for total of 5 days and given on HD days - Plan - UTI: MRSA: Needs Vancomycin for total of 5 days - Pneumonia: Needs IV Meropenem for total of 14 days - Sepsis secondary to left-sided pneumonia with concern for HCAP-history of MDR pneumonia/UTI - COPD with exacerbation-on chronic home O22 L - Leukocytosis - Paroxysmal atrial fibrillation on chronic anticoagulation - Diabetes mellitus type 2 - ESRD on HD TTS - Diastolic congestive heart failure - CAD status post PCI - PAD - Hypertension - hyperlipidemia - Mild protein calorie malnutrition - Anemia of chronic disease ID will monitor the patient closely for signs of infection with fever and WBC trends Case has been discussed with Dr. Ibarra N
--- NOTE | 2022-10-30 15:47 | P.PN ---
Subjective Date of Service: 10/30/22 Chief Complaint: Respiratory distress Patient has no new complaint. He denies any shortness of breath or cough He denies any dysuria. Physical Examination - Vital Signs Temperature: 97.5 F Blood Pressure: 152/82 Pulse: 68 Respirations: 18 Pulse Ox (%): 97 Assessment And Plan - Plan Physical Exam: GEN: Alert, oriented, NAD CV: Regular rate and rhythm, no edema Pulm: Clear to auscultation bilaterally, adequate breath sounds bilaterally. ABD: Soft, nontender, nondistended Neuro: Normal speech, no focal motor deficit. vitals reviewed Problem List: Severe Sepsis secondary to left-sided ESBL E. coli pneumonia. acute on chronic COPD with exacerbation Chronic respiratory failure with hypoxia. Paroxysmal atrial fibrillation Chronic anticoagulation DM2 ESRD on HD TTS Chronic diastolic congestive heart failure CAD status post PCI PAD Hypertension hyperlipidemia Severe Sepsis secondary to left-sided ESBL E. coli pneumonia/MRSA UTI Blood cultures: No growth to date. Sputum culture grew ESBL E. coli. Urine culture;MRSA Infectious disease is following. ID recommended IV meropenem, and IV vancomycin with dialysis Pulmonology is following CT noted 3.9cm suprarenal AAA. Patient is aware he is supposed to follow up as outpatient. Patient informed to follow-up with urologist as outpatient regarding urine incontinence and recurrent UTI. COPD with exacerbation-on chronic home O22 L continue nebulizer treatments p.o. steroids supplemental oxygen as needed. Seen by pulmonary. Paroxysmal atrial fibrillation on chronic anticoagulation continue home medications. DM2 ACHS Accu-Chek, sliding scale insulin. ESRD on HD TTS Diastolic congestive heart failure Nephrology is managing dialysis. Volume management with dialysis. He appears compensated for CHF. CAD status post PCI PAD Hypertension hyperlipidemia Continue home medications VTE: Eliquis Code: Full Dispo: Patient may be a candidate for LTAC for prolonged IV antibiotic therapy and hemodialysis. Social service consulted to evaluate for LTAC placement.
--- NOTE | 2022-10-30 15:51 | P.PN ---
Nephrology note: (S) Pt reports doing better, no resp distress noted, off O2 when seen, rounded with pt with Dr. Ibarra and culture results and plans for Abx discussed in detail General: Alert, In no apparent distress, Oriented x3 HEENT: Atraumatic, Normocephalic, Other (off NC) Neck: Other (Rt IJ TDC) Respiratory: Other (Non tachypnec, b/l air entry with dimished BS Lt base) Cardiovascular: Other (Non tachy, no cardiac gallop heart sounds) Gastrointestinal: Soft and benign, No ascites, No tenderness Musculoskeletal: No swelling, No contractures, No erythema Integumentary: No rashes, No significant lesion Neurological: Normal speech, Normal tone, Normal affect Laboratory Data (last 24 hrs) Reviewed in the EMR Conclusions/Impression: A/P) 1. ESRD with recently initiated HD in the setting of progressive CKD, solitary kidney state with acquired absence of left kidney. Last HD Tues, metab profile s table. 2. Acute on chronic hypoxic respiratory insufficiency, recurrent PNA unspecified organism. Chest CT reported, prior Rt sided opacities better per reports but left sided one worsened. Pt also has some non specific LAD, would benefit from Pulm eval, possible bronch or at minimum repeat CT post ABx to document clearance of PNA/opacities. ESBL Ecoli on sputum culture, Dr. Ibarra recommends completing Meropenem course for 14 days 3. No current signs of hypervolemia, no large pleural effusions. Maintain EDW. Echo findings noted 4. Abnormal findings in urine, unspecified. Large no of epithelial cells on specimen. Pt reported sediment in urine without other symptoms. MRSA on UCx, will go ahead and complete Vanc course for 7 days 5. Acceptable BP range. 6. Anemia 2nd to CKD -improved from a few mo ago, current Hb > 10 [place] MD, BRISSA
[2022-10-30] MEDS: GABAPENTIN 300 MG CAP PO SCH (20:43)
[2022-10-30] MEDS: TAMSULOSIN 0.4 MG SR CAP PO SCH (20:43)
[2022-10-30] MEDS: ATORVASTATIN 40 MG TAB PO SCH (20:43)
[2022-10-31] MEDS: IPRATROPIUM BROM 0.5MG/2.5ML NEB SCH ×3 (01:35→15:00)
[2022-10-31 04:20] LABS: Absolute Lymphocytes (CBC) 1.1 K/uL (0.7-4.9); Hematocrit 32.8 % (39.6-49.0); Lymphocytes % 13.5 % (15.3-44.8); MCV 93.2 fL (80-100); MPV 7.1 fL (7.6-11.3); RBC Red Blood Cell Count 3.52 M/uL (4.33-5.43)
[2022-10-31 04:38] LABS: Potassium 4.9 mEq/L (3.5-5.1)
[2022-10-31] MEDS: HYDROCODONE/APAP 5/325 MG TAB PO PRN ×3 (04:52→16:49)
[2022-10-31] MEDS: INSULIN -REGULAR HUMAN 50 UNIT/0.5 ML ML SQ SCH ×3 (07:30→16:49)
[2022-10-31] MEDS: GUAIFENESIN 600 MG SA TAB PO SCH (08:41)
[2022-10-31] MEDS: PARoxetine HCL 10 MG TAB PO SCH (08:41)
[2022-10-31] MEDS: predniSONE 20 MG TAB PO SCH ×2 (08:42→16:07)
[2022-10-31] MEDS: ACETAMINOPHEN 500 MG TAB PO PRN (08:42)
[2022-10-31] MEDS: Meropenem 500 MG in NA CHLORIDE 0.9% 100 ML IV SCH (08:42)
[2022-10-31] MEDS: MIDODRINE HCL 5 MG TABLET PO SCH ×2 (08:43→14:00)
--- NOTE | 2022-10-31 08:58 | P.PN ---
Subjective Date of Service: 10/31/22 Chief Complaint: Respiratory distress Patient sitting at the edge of the bed listening to music from his iPad and in good spirit and pleasant. No other major event upon examination Physical Examination - Vital Signs Temperature: 99.1 F Blood Pressure: 173/92 Pulse: 94 Respirations: 18 Pulse Ox (%): 96 - Physical Exam General: Alert, In no apparent distress, Oriented x3 Respiratory: Clear to auscultation bilaterally, Normal air movement Cardiovascular: No edema, Irregular heart rate/rhythm (A-fib) Gastrointestinal: Normal bowel sounds Musculoskeletal: No swelling, No erythema, No tenderness Integumentary: No rashes, No breakdown Neurological: Normal speech, Normal tone, Normal affect - Studies Active Medications Acetaminophen (Acetaminophen 500 Mg Tab) 500 mg PO Q4HP PRN PRN Reason: TEMP > 100' F Last Admin: 10/31/22 08:42 Dose: 500 mg Hydrocodone Bitart/Acetaminophen (Hydrocodone/Apap 5/325 Mg Tab) 1 tab PO Q6H PRN PRN Reason: Pain scale 5-7 (Moderate) Last Admin: 10/31/22 04:52 Dose: 1 tab Albuterol Sulfate (Albuterol 2.5 Mg/3 Ml Neb Nanda) 2.5 mg NEB [id number] PRN PRN Reason: SHORTNESS OF BREATH Last Admin: 10/27/22 20:20 Dose: 2.5 mg Allopurinol (Allopurinol 100 Mg Tab) 100 mg PO DAILY [facility] Last Admin: 10/30/22 09:23 Dose: 100 mg Apixaban (Apixaban 2.5 Mg Tablet) 2.5 mg PO BID [facility] Last Admin: 10/30/22 20:43 Dose: 2.5 mg Atorvastatin Calcium (Atorvastatin 40 Mg Tab) 40 mg PO BEDTIME [facility] Last Admin: 10/30/22 20:43 Dose: 40 mg Finasteride (Finasteride 5 Mg Tab) 5 mg PO DAILY [facility] Last Admin: 10/30/22 09:22 Dose: 5 mg Gabapentin (Gabapentin 300 Mg Cap) 300 mg PO BEDTIME [facility] Last Admin: 10/30/22 20:43 Dose: 300 mg Guaifenesin (Guaifenesin 600 Mg Sa Tab) 600 mg PO BID [facility] Stop: 11/01/22 21:01 Last Admin: 10/31/22 08:41 Dose: 600 mg Heparin Sodium (Porcine) (Heparin 1,000 Unit/Ml Vial) 2,000 unit IV EVERY HD PRN PRN Reason: Prevent Lines Clotting Last Admin: 10/29/22 11:57 Dose: 2,000 unit Heparin Sodium (Porcine) (Heparin 1,000 Unit/Ml Vial) 4,000 unit IV EVERY HD PRN PRN Reason: FOR DIALYSIS CATHETER CARE Last Admin: 10/29/22 15:02 Dose: 4,000 unit Meropenem 500 mg/ Sodium (Chloride) 100 mls @ 200 mls/hr IV Q12HR [facility] Last Admin: 10/31/22 08:42 Dose: 100 mls Albumin Human (Albumin 25%) 50 mls @ 100 mls/hr IV EVERY HD PRN PRN Reason: SEE COMMENTS Vancomycin HCl 1 gm/ Sodium (Chloride) 250 mls @ 250 mls/hr IVPB EVERY HD [facility]; Protocol Insulin Human Regular (Insulin -Regular Human 50 Unit/0.5 Ml Ml) 0 unit SQ ACHS [facility]; Protocol Last Admin: 10/30/22 20:43 Dose: Not Given Ipratropium [place] (Ipratropium Brom 0.5mg/2.5ml) 0.5 mg NEB [id number] [facility] Last Admin: 10/31/22 01:35 Dose: 0.5 mg Mannitol (Mannitol 25% 12.5 Gm/50 Ml Vial) 12.5 gm IV EVERY HD PRN PRN Reason: Titrate to SBP (MUST DEFINE) Melatonin (Melatonin 5 Mg Tablet) 5 mg PO BEDTIME PRN PRN PRN Reason: INSOMNIA Midodrine (Midodrine Hcl 5 Mg Tablet) 5 mg PO TID [facility] Last Admin: 10/31/22 08:43 Dose: Not Given Ondansetron HCl (Ondansetron 4 Mg/2 Ml Vial) 4 mg IV Q6HP PRN PRN Reason: NAUSEA / VOMITING Paroxetine HCl (Paroxetine Hcl 10 Mg Tab) 20 mg PO DAILY [facility] Last Admin: 10/31/22 08:41 Dose: 20 mg Prednisone (Prednisone 20 Mg Tab) 20 mg PO BIDWM [facility] Last Admin: 10/31/22 08:42 Dose: 20 mg Sodium Chloride (Flush Normal Saline 10 Ml) 10 ml IV BID [facility] Last Admin: 10/31/22 08:43 Dose: 10 ml Tamsulosin HCl (Tamsulosin 0.4 Mg Sr Cap) 0.4 mg PO BEDTIME [facility] Last Admin: 10/30/22 20:43 Dose: 0.4 mg Microbiology Data (last 24 hrs): Microbiology 10/26/22 20:23 Blood - Blood Aerobic Blood Culture - Preliminary No growth in 24 hours. 10/26/22 20:23 Blood - Blood Anaerobic Blood Culture - Preliminary No growth in 24 hours. 10/26/22 19:10 Blood - Blood Aerobic Blood Culture - Preliminary No growth in 24 hours. 10/26/22 19:10 Blood - Blood Anaerobic Blood Culture - Preliminary No growth in 24 hours. Assessment And Plan - Current Problems (Diagnosis) (1) Pneumonia Plan: Cultures: - 10/26 Sputum: ESBL E. Coli, susceptible to Meropenem Antibiotics: - On IV Meroepenem (10/27- ) Recommendations: - Continue IV Meropemen for total of 2 weeks (2) UTI (urinary tract infection) Plan: Cultures: - 10/26 UC: Meth Resistant Staph aureus (MRSA), susceptible to Tetracycline, Nitrofurantoin, Vancomycin Antibiotics: - On IV Meroepenem (10/27- ) Recommendations: - Add Vancomycin for total of 5 days and given on HD days - Plan - UTI: MRSA: Needs Vancomycin for total of 5 days - Pneumonia: Needs IV Meropenem for total of 14 days - Sepsis secondary to left-sided pneumonia with concern for HCAP-history of MDR pneumonia/UTI - COPD with exacerbation-on chronic home O22 L - Leukocytosis - Paroxysmal atrial fibrillation on chronic anticoagulation - Diabetes mellitus type 2 - ESRD on HD TTS - Diastolic congestive heart failure - CAD status post PCI - PAD - Hypertension - hyperlipidemia - Mild protein calorie malnutrition - Anemia of chronic disease ID will monitor the patient closely for signs of infection with fever and WBC trends Case has been discussed with Dr. Ibarra, N
[2022-10-31] MEDS ORDERED: VANCOMYCIN 1 GM in NA CHLORIDE 0.9% 250 ML IVPB SCH (13:00)
[2022-10-31] MEDS: allopurinoL 100 MG TAB PO SCH (14:29)
[2022-10-31] MEDS: FINASTERIDE 5 MG TAB PO SCH (14:29)
[2022-10-31] MEDS: APIXABAN 2.5 MG TABLET PO SCH (14:29)
--- NOTE | 2022-10-31 14:44 | P.PN ---
Subjective Date of Service: 10/31/22 Chief Complaint: Respiratory distress Patient has no new complaint. He denies any dysuria. He is tolerating his diet. Physical Examination - Vital Signs Temperature: 97.0 F Blood Pressure: 110/71 Pulse: 81 Respirations: 16 Pulse Ox (%): 97 Assessment And Plan - Plan Physical Exam: GEN: Alert, oriented, NAD CV: Regular rate and rhythm, no edema Pulm: Clear to auscultation bilaterally, adequate breath sounds bilaterally. ABD: Soft, nontender, nondistended Neuro: Normal speech, no focal motor deficit. vitals reviewed Problem List: Severe Sepsis secondary to left-sided ESBL E. coli pneumonia. acute on chronic COPD with exacerbation Chronic respiratory failure with hypoxia. Paroxysmal atrial fibrillation Chronic anticoagulation DM2 ESRD on HD TTS Chronic diastolic congestive heart failure CAD status post PCI PAD Hypertension hyperlipidemia Severe Sepsis secondary to left-sided ESBL E. coli pneumonia/MRSA UTI Blood cultures: No growth to date. Sputum culture grew ESBL E. coli. Urine culture;MRSA Sepsis resolved. Infectious disease is following. ID recommended IV meropenem, and IV vancomycin with dialysis Pulmonology is following CT noted 3.9cm suprarenal AAA. Patient is aware he is supposed to follow up as outpatient. Patient informed to follow-up with urologist as outpatient regarding urine incontinence and recurrent UTI. COPD with exacerbation-on chronic home O22 L continue nebulizer treatments p.o. steroids supplemental oxygen as needed. Seen by pulmonary. Paroxysmal atrial fibrillation on chronic anticoagulation continue home medications. DM2 ACHS Accu-Chek, sliding scale insulin. ESRD on HD TTS Diastolic congestive heart failure Nephrology is managing dialysis. Volume management with dialysis. He appears compensated for CHF. CAD status post PCI PAD Hypertension hyperlipidemia Continue home medications VTE: Eliquis Code: Full Dispo: LTAC for prolonged IV antibiotic therapy and hemodialysis. Social service assisting with arrangement for LTAC placement.
[2022-10-31 15:33] VITALS: O2SAT 96
[2022-10-31 16:38] VITALS: BP 133/76; TEMP 97.2
--- NOTE | 2022-10-31 17:45 | P.DS ---
Admission Date: 10/26/22 Discharge Date: 10/31/22 Disposition: [facility] Discharge Condition: [facility]IR Reason for Admission: Respiratory distress Brief History of Present Illness: 77-year-old male with history of ESRD on HD TTS, COPD on chronic home O2, paroxysmal atrial fibrillation on chronic anticoagulation, monoclonal gammopathy, CAD history of PCI, PAD, chronic diastolic congestive heart failure, hypertension, hyperlipidemia, diabetes mellitus type 2, BPH presented to the emergency department for fever, shortness of breath. He did receive dialysis and reported increasing dyspnea and low-grade fevers over the course of the 2 to 3 days. In July 2022 he was initiated on hemodialysis and also treated for MRSA UTI and ESBL E. coli pneumonia, after that hospitalization he was transferred to [facility] for approximately 2 weeks and subsequently discharged home. He was again admitted here on 09/04/2022 and treated for respiratory failure, pneumonia subsequently discharged on 09/07/2022. During that visit his blood cultures and urine culture were negative. His labs in the ED revealed mild left basilar opacity unchanged which may represent pneumonia or atelectasis. He met criteria for sepsis and given antibiotics in ED and patient admitted for further management. Hospital Course: Diagnosis Severe Sepsis secondary to left-sided ESBL E. coli pneumonia. acute on chronic COPD with exacerbation Chronic respiratory failure with hypoxia. Paroxysmal atrial fibrillation Chronic anticoagulation DM2 ESRD on HD TTS Chronic diastolic congestive heart failure CAD status post PCI PAD Hypertension hyperlipidemia Patient admitted to the medical floor and the following medical problems addressed Severe Sepsis secondary to left-sided ESBL E. coli pneumonia/MRSA UTI Blood cultures: No growth to date. Sputum culture grew ESBL E. coli. Urine culture;MRSA Sepsis resolved. Seen by infectious disease ID recommended 2 weeks of IV meropenem, and IV vancomycin with dialysis Also seen by pulmonary. 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 Patient is aware he is supposed to follow up as outpatient. Patient informed to follow-up with urologist as outpatient regarding urine incontinence and recurrent UTI. Patient accepted to [facility] for prolonged antibiotic treatment. COPD with exacerbation-on chronic home O22 L Treated with nebulizer treatments p.o. steroids Seen by pulmonary. Oral prednisone discontinued on discharge. Paroxysmal atrial fibrillation on chronic anticoagulation continued home medications. DM2 ACHS Accu-Chek, sliding scale insulin. ESRD on HD TTS/chronic diastolic heart failure Nephrology managed volume status with dialysis He appears compensated for CHF. CAD status post PCI PAD Hypertension hyperlipidemia Continued home medications Vital Signs/Physical Exam: Temp Pulse Resp BP Pulse Ox 97.2 F 90 15 133/76 96 10/31/22 16:00 10/31/22 16:00 10/31/22 16:00 10/31/22 16:00 10/31/22 16:00 General: Alert, In no apparent distress, Oriented x3 HEENT: Mucous membr. moist/pink Neck: JVD not distended Respiratory: Clear to auscultation bilaterally, Normal air movement Cardiovascular: No edema, Regular rate/rhythm, Normal S1 S2, No murmurs Gastrointestinal: Normal bowel sounds, Soft and benign, Non-distended, No tenderness Musculoskeletal: No swelling Integumentary: No rashes Neurological: Normal strength at 5/5 x4 extr Laboratory Data at Discharge: WBC 8.20 thou/uL (4.3-10.9) 10/31/22 04:04 Hgb 10.9 g/dL (13.6-17.9) L 10/31/22 04:04 Hct 32.8 % (39.6-49.0) L 10/31/22 04:04 Plt Count 260 thou/uL (152-406) 10/31/22 04:04 PT 11.8 SECONDS (9.5-12.5) 10/26/22 19:10 INR 1.07 10/26/22 19:10 APTT 32.7 SECONDS (24.3-36.9) 10/26/22 19:10 Sodium 137 mEq/L (136-145) 10/31/22 04:04 Potassium 4.9 mEq/L (3.5-5.1) 10/31/22 04:04 BUN 72 mg/dL (7-18) H 10/31/22 04:04 Creatinine 4.26 mg/dL (0.70-1.30) H 10/31/22 04:04 Glucose 167 mg/dL (74-106) H 10/31/22 04:04 Total Bilirubin 0.4 mg/dL (0.2-1.0) 10/26/22 19:10 AST 10 U/L (15-37) L 10/26/22 19:10 ALT 15 U/L (16-61) L 10/26/22 19:10 Alkaline Phosphatase 107 U/L (45-117) 10/26/22 19:10 Home Medications: Atorvastatin Calcium 40 mg PO BEDTIME 08/02/18 Finasteride [Proscar*] 5 mg PO DAILY 08/02/18 Gabapentin 300 mg PO BEDTIME 08/02/18 Paroxetine HCl [Paxil] 20 mg PO DAILY 08/02/18 allopurinoL [Zyloprim*] 100 mg PO DAILY 08/03/18 Budesonide/Formoterol Fumarate [Symbicort 160-4.5 Mcg Inhaler] 2 puff IH BID #60 [id number].[id number] 08/06/18 Cholecalciferol (Vitamin D3) [Vitamin D3] 25 mcg PO DAILY 08/08/21 Cyanocobalamin [Vitamin B-12*] 2,000 mcg PO DAILY 08/08/21 Ipratropium/Albuterol Sulfate [Combivent Respimat 20-100 Mcg] 1 puff IH Q6H PRN 08/08/21 Apixaban [Eliquis *] 2.5 mg PO BID #60 tablet 08/11/21 Furosemide [Lasix] 40 mg PO DAILY #30 tablet 08/11/21 Albuterol Neb [Proventil 0.083% Neb Soln] 3 ml NEB PRN PRN 09/04/22 Ipratropium Neb [Atrovent*] 2.5 ml NEB PRN PRN 09/04/22 Tamsulosin [Flomax*] 0.4 mg PO BEDTIME 09/04/22 Arformoterol Tartrate [Brovana] 15 mcg NEB BIDRESP #60 vial.neb 09/07/22 Cholecalciferol (Vitamin D3) [Vitamin D 1000 Iu Tab*] 1,000 unit PO DAILY #30 tab 09/07/22 Ipratropium Neb [Atrovent*] 0.5 mg NEB Q12H #60 amp 09/07/22 Melatonin 5 mg PO BEDTIME PRN PRN #30 09/07/22 Midodrine HCl [Proamatine*] 5 mg PO TID #90 tab 09/07/22 Heparin [Heparin 1,000 units/mL *] 2,000 unit IV EVERY HD PRN vial 10/31/22 Heparin [Heparin 1,000 units/mL *] 4,000 unit IV EVERY HD PRN vial 10/31/22 Hydrocodone 5/APAP 325 [[place] 5/325*] 1 tab PO Q6H PRN tab 10/31/22 Mannitol 25% [Mannitol*] 12.5 gm IV EVERY HD PRN vial 10/31/22 Meropenem [Merrem*] 1 gm IV DAILY #12 vial 10/31/22 Vancomycin 1 gm IV T,TH,S #5 vial 10/31/22 New Medications: Meropenem [Merrem*] 1 gm IV DAILY #12 vial Vancomycin 1 gm IV T,TH,S #5 vial Diet: AHA Activity: Ad aydin Time spent managing pt's care (in minutes): 37
--- NOTE | 2022-10-31 20:01 | P.PN ---
Date of Service: 10/31/22 Vital Signs Temp Pulse Resp BP Pulse Ox 97.2 F 90 15 133/76 96 10/31/22 16:00 10/31/22 16:00 10/31/22 16:00 10/31/22 16:00 10/31/22 16:00 Microbiology Results 10/26/22 19:10 Blood - Blood Aerobic Blood Culture - Final No growth in 5 days. 10/26/22 19:10 Blood - Blood Anaerobic Blood Culture - Final No growth in 5 days. 10/26/22 20:23 Blood - Blood Aerobic Blood Culture - Preliminary No growth in 24 hours. 10/26/22 20:23 Blood - Blood Anaerobic Blood Culture - Preliminary No growth in 24 hours. Assessment/ Plan: Nephrology No dyspnea No chest pain Doing well No acute events overnight Vitals, medications, blood work and imaging reviewed in the chart. NAD. NCAT. MMM. Neck supple. Normal respiratory effort. RRR. Abd ND. No C/C. LE Edema none. No rash. AAO. Normal speech. ESRD on HD -HD TIW Chronic hypotension -Continue Midodrine Diastolic CHF, chronic -Daily weight -HD with UF DM II with CKD -RISS Anemia in CKD -Retacrit prn CKD MBD -Continue Ergo BPH with LUTS -Continue tamsulosin Lobar PNA -Continue PNA -E.coli ESBL followed by ID Case reviewed with Dr. Espinal
[2022-10-31] MEDS ORDERED: Meropenem 500 MG in NA CHLORIDE 0.9% 100 ML IV SCH (21:00)
== END 2022-10-31 19:20 | DRG 871 ==
LOC: ER 18:43 → ERHOLD 20:25 → 2ND 10-27 07:42
PROVIDERS: ADMIT Hospitalist; ATTEND Internal Medicine
PROC: 5A1D70Z Performance of Urinary Filtration, Intermittent, Less than 6 Hours Per Day (ICD-10-PCS; principal; 2022-10-29)
DX: A41.51 Sepsis due to Escherichia coli [E. coli] (principal); J15.5 Pneumonia due to Escherichia coli; N18.6 End stage renal disease; J96.21 Acute and chronic respiratory failure with hypoxia; J44.0 Chronic obstructive pulmonary disease with (acute) lower respiratory infection; I50.32 Chronic diastolic (congestive) heart failure; I13.2 Hypertensive heart and chronic kidney disease with heart failure and with stage 5 chronic kidney disease, or end stage renal disease; J44.1 Chronic obstructive pulmonary disease with (acute) exacerbation; E44.0 Moderate protein-calorie malnutrition; Z16.12 Extended spectrum beta lactamase (ESBL) resistance; N39.0 Urinary tract infection, site not specified; A41.02 Sepsis due to Methicillin resistant Staphylococcus aureus; R65.20 Severe sepsis without septic shock; E11.22 Type 2 diabetes mellitus with diabetic chronic kidney disease; E11.42 Type 2 diabetes mellitus with diabetic polyneuropathy; E11.51 Type 2 diabetes mellitus with diabetic peripheral angiopathy without gangrene; D63.1 Anemia in chronic kidney disease; E78.5 Hyperlipidemia, unspecified; I48.0 Paroxysmal atrial fibrillation; I95.89 Other hypotension; N40.1 Benign prostatic hyperplasia with lower urinary tract symptoms; I71.40 Abdominal aortic aneurysm, without rupture, unspecified; I25.10 Atherosclerotic heart disease of native coronary artery without angina pectoris; F17.210 Nicotine dependence, cigarettes, uncomplicated; Z99.2 Dependence on renal dialysis; Z88.5 Allergy status to narcotic agent; Z88.1 Allergy status to other antibiotic agents; Z68.27 Body mass index [BMI] 27.0-27.9, adult; Z90.49 Acquired absence of other specified parts of digestive tract; Z98.61 Coronary angioplasty status; Z79.01 Long term (current) use of anticoagulants; Z85.51 Personal history of malignant neoplasm of bladder; Z99.81 Dependence on supplemental oxygen; Z79.899 Other long term (current) drug therapy; Z20.822 Contact with and (suspected) exposure to COVID-19
CPT/HCPCS: 0240U; 36415; 71045; 71250; 80048; 80053; 80202; 81001; 81003; 81015; 82947; 83605; 83880; 84145; 84484; 85025; 85610; 85730; 87040; 87070; 87077; 87086; 87088; 87186; 87205; 90935; 93005; 93306; 94640; 99285; J1644; J1815; J2185; J2920; J7040; J7050; J7512; J7613; J7644

== ENCOUNTER 2022-12-05 16:01 | Emergency (ER) | payer OTHER ==
--- OUTSIDE RECORDS SUMMARY | 2022-12-05 16:09 | XMS REPORT | Continuity of Care Document ---
:1945 Author Organization [facility] t Address [address] [place] [address]. [address] [place] [address] Care Team Providers Name Role Phone [facility] Primary Care Physician Unavailable MARGIE MORRIS Attending Clinician Unavailable Doctor Unassigned, [place] Attending Clinician Unavailable ANGIE MARTINEZ Attending Clinician Unavailable Hemanth Redmond RN Attending Clinician Unavailable JERE WOODWARD Attending Clinician Unavailable Quinn Ibarra MD Attending Clinician Jere Woodward MD Attending Clinician ANGIE MARTINEZ Admitting Clinician Unavailable JERE WOODWARD Admitting Clinician Unavailable Jere Woodward MD Admitting Clinician Payers Payer Name Policy Type Policy Number Effective Date Expiration Date S lj MEDICARE PART A [id number] 2005 \\T\\ B 00:00:00 [id number] 1959 00:00:00 WPS-VACAA C1 [id number] [facility] WPS-VACAA C1 [id number] [facility] Problems Condition Condition Condition Status [...] 1-25 it y of on on 00:00: [place] [facility] Obesity Obesity Disease Active Univers (BMI (BMI 1-24 ity of 30-39.9) 30-39.9) 00:00: [place] [facility] Coronary Coronary Disease Active Unive rs artery artery 1-24 ity of disease disease 00:00: [place] involving involving 00 Medi unruly sitka sitka Branch coronary coronary artery of artery of sitka sitka heart heart without without angina angina pectoris pectoris Atrial Atrial Disease Active Univers flutter flutter 1-24 ity of 00:00: [place] [facility] PAD PAD Disease Active Univers (periphera (periphera 1-24 it y of l artery l artery 00:00: [place] disease) disease) 00 Medica l Branch Chronic Chronic Disease Active Univers diastolic diastolic 1-24 ity of congestive congestive 00:00[place] heart heart 00 Medical failure failure Branch Primary Primary Disease Active Univers hypertensi hypertensi 1-24 it y of on on 00:00: [place] [facility] Other Other Disease Active Univers hyperlipid hyperlipid 1-24 it y of emia emia 00:00: [place] [facility] JAZZY (acute JAZZY (acute Disease Active U nivers kidney kidney 1-24 ity of injury) injury) 00:00: [place] [facility] Toe ulcer, Toe ulcer, Disease Active U nivers right, right, 2-20 ity of limited to limited to 00:[place] breakdown breakdown 00 Medi unruly of skin of skin Branch COPD COPD Disease Active Univers exacerbati exacerbati 2-16 it y of on on 00:00: [place] [id number] Medical Branch COPD COPD Disease Active Univers [...] vers foot foot 1-28 ity of 00:00: [place] [facility] Respirator Respirator Disease Active 2016-08 U nivers y failure, y failure, -26 it y of acute acute 00:00: [address] [id number] MRSA Problem Active Common (methicill Spirit in - [facility] resistant staph [facility] aureus) Medical culture Center positive [id number] OAB Problem Active Common (overactiv Spirit e bladder) - [facility] [id number] Urge Problem Active Common incontinen Spirit ce - [facility] [id number] 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 [facility] [id number] Lower Problem Active Common urinary Spirit tract - [facility] symptoms (LUTS) [facility] [id number] 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 - [facility] bladder, unspecifie [facility] Allergies, Adverse Reactions, Alerts Allergy [...] Quantity Comments Source Exposure to Not sure [facility] SARS-CoV-2 [place] Medical (event) [place] Sex Assigned At [facility] marcio - [facility] History of [facility] - Tobacco Use [facility] Alcohol intake 2021-09-07 2021-09-07 Current University of 00:00:00 00:00:00 non-drinker of [facility] alcohol (finding) Branch Tobacco use and 2017-09-25 2017-09-25 Smokeless tobacco Un iversity of exposure 00:00:00 00:00:00 non-user [place] [facility] Tobacco Comment 2017-09-25 2017-09-25 Quit 1 month ago Uni versity of 00:00:00 00:00:00 [place] [facility] Smoking Status Start Date Stop Date Source Ex-smoker 2017-09-25 00:00:00 2017-09-25 00:00:00 Universi ty of [place] [facility] Medications Ordered Filled Start Stop Current Ordering [...] ADC PROVIDER aspirin 81 0 2021- No [id number] 81mg Take 1 Univers mg EC 09-12 tablet by ity of tablet 00:00: 05:59 mouth [place] 00 :00 daily for Medical 30 days. Branch aspirin 81 0 2021- No [id number] 81mg Take 1 Univers mg EC 09-12 [...] Branch FINASTERIDE 2021-0 Yes 5mg 5 mg. [employer] , BULK, 2- ity of MISC 18:18: [...] Branch FINASTERIDE 2021-0 Yes 5mg 5 mg. [facility] , BULK, 2- ity of MISC 18:18: [...] paroxysmal atrial fibrillati on ferrous 2021- No [id number] 325mg Take 1 U nivers sulfate 325 09-11 tablet by it y of mg (65 mg 00:00: 05:59 [place] iron) 00 :00 (two) Medical tablet times Branch daily for 30 days. diltiazem 2021- No [id number] 120mg Take 1 Univers 120 mg 24 09-11 capsule by ity of hr capsule 00:00: 05:59 mouth [place] 00 :00 daily for Medical 30 days. [place] apixaban 5 No [id number] 5mg Take 1 Univ ers mg tablet 09-11 tablet by ity of 00:00: 05:59 mouth 2 [place] 00 :00 (two) Medical times Branch daily for 30 days. Indication s: prevention of thromboemb olism in paroxysmal atrial fibrillati on ferrous 2021- No [id number] 325mg Take 1 U nivers sulfate 325 09-11 tablet by it y of mg (65 mg 00:00: 05:59 [place] iron) 00 :00 (two) Medical tablet times Branch daily for 30 days. diltiazem No [id number] 120mg Take 1 Univers 120 mg 24 09-11 capsule by ity of hr capsule 00:00: 05:59 mouth [place] 00 :00 daily for Medical 30 days. [place] linezolid No [id number] 600mg Take 1 Univers 600 mg 09-11 tablet by ity of tablet 00:00: 05:59 mouth [place] 00 :00 every 12 Medical (twelve) Branch hours for 7 days. linezolid No [id number] 600mg Take 1 Univers 600 mg 09-11 tablet by ity of tablet 00:00: 05:59 mouth [place] 00 :00 every 12 Medical (twelve) Branch hours for 7 days. diltiazem No [id number] 30mg Take 1 Univers 30 mg 09-11 [...] mg 02:00: First dose [place] 00 on [facility] 09/09/21 at Branch 2000, Until Discontinu ed, [...] ity of PEDIATRIC 05:15: 15:14 at 75 [place] IV infusion 00 :00 mL/hr, Medica l [facility] Branch , Starting on Fri09/05/21 at 2315, Until Dee 09/06/21 at 0914, Routine benzonatate Yes 100mg 100 mg, Un camreon (TESSALON 09-06 Oral, ity of PERLES) 00:54: Q8HPRN, [place] capsule 100 06 Starting Medi unruly mg on Fri Branch 09/05/21 at 1854, Until Discontinu ed, Routine, Cough diltiazem Yes 30mg 30 mg, Univer s (CARDIZEM) 09-05 Oral, Q6H, ity of tablet 30 18:00: First dose [place] mg 00 on [facility] Medical 09/05/21 at Branch 1200, Until Discontinu [...] (after Medical last Branch modificati on) on [facility] 09/03/21 at 2115, Until Discontinu ed, Routine ferrous Yes 325mg 325 mg, Univer s sulfate 09-03 Oral, BID, ity of tablet 325 16:30: First dose [place] mg 00 on [facility] 09/03/21 at Branch 1030, Until Discontinu ed, Routine aspirin EC Yes 81mg 81 mg, Unive rs tablet 81 09-03 Oral, ity of mg 15:00: DAILY, [place] 00 First dose Medical on [facility] 09/03/21 at 0900, Until Discontinu ed, Routine PARoxetine Yes 20mg 20 mg, Unive rs (PAXIL) 09-03 Oral, ity of tablet 20 15:00: DAILY, [place] mg 00 First dose Medical on [facility] 09/03/21 at 0900, Until Discontinu ed finasteride Yes 5mg 5 mg, Unive rs (PROSCAR) 09-03 Oral, ity of tablet 5 mg 15:00: DAILY, [place] 00 First dose Medical on [facility] 09/03/21 at 0900, Until Discontinu ed NIFEdipine 2021- No 60mg 60 mg, Univ ers ER tablet 09-03 Oral, ity of 60 mg 15:00: 14:27 DAILY, [place] 00 :50 First dose Medical on [facility] 09/03/21 at 0900, Until Discontinu ed tamsulosin 2021- No .4mg 0.4 mg, Uni vers (FLOMAX) 09-03 Oral, ity of capsule 0.4 15:00: 03:06 DAILY, [place] mg 00 :19 First dose Medical on [facility] 09/03/21 at 0900, Until Discontinu ed, Routine azithromyci 2021- No 500mg 500 mg, IV Univers n 09-03 01-26 Piggyback, ity of (ZITHROMAX) 07:30: 00:32 Q24H ABX, [place] 500 mg in 00 :51 First dose [facility] NaCl 0.9% on [facility] (NS) 250 mL 09/03/21 at [...] (0.083 15 Starting Medica l %) on [facility] nebulizer 09/03/21 at solution 0029, [...] First dose [place] mg 00 on [facility] 09/02/21 at Branch 2100, Until Discontinu ed, Routine budesonide- 2021-0 Yes 2{puff} 2 Puff, [facility] formoteroL 1-24 Inhalation ity of (SYMBICORT) 02:00: , BID, [place] 160-4.5 00 First dose Medica l mcg/actuati on [facility] on inhaler 09/02/21 at 2 Puff 2000, Until Discontinu ed, Routine ipratropium 2021-0 Yes 3mL 3 mL, Unive rs -albuteroL 1-24 Inhalation ity of (DUONEB) 02:00: , Q4H, [place] 0.5 mg-3 00 First dose Medic al mg(2.5 mg (after Branch base)/3 mL last nebulizer modificati solution 3 on) on [place] mL 09/02/21 at 2000, Until Discontinu ed, AILYN furosemide No 20mg 20 mg, Univ ers (LASIX) 09-03 Slow IV ity of injection 01:15: 02:16 Push, [place] 20 mg 00 :00 ONCE, 1 Medical dose, On Branch [place] 09/02/21 at 1915, Routine methylPREDN 2021- No 40mg 40 mg, Uni vers ISolone sod 09-03 Intravenou i ty of succ 00:00: 21:42 s, Q6H, [place] (SOLU-MEDRO 00 :53 First dose Me dical L (PF)) (after Branch injection last 40 mg reorder) on [place] 09/02/21 at 1800, Until Discontinu ed, STAT Sliding Yes Subcutaneo Univ ers Scale -23 us, TID ity of Insulin - 23:00: MEALS+HS, [place] Lispro 00 First dose Medical (HumaLOG) + on [facility] 09/02/21 at Testing 1700, Until Discontinu ed, Routine glucagon Yes 1mg 1 mg, Univers (GLUCAGEN 09-02 Intramuscu ity of DIAGNOSTIC 22:44: lar, PRN, [place] KIT) 34 Starting Medical injection 1 on [facility] mg 09/02/21 at 1644, Until Discontinu ed, AILYN, Blood Glucose < or = 70 mg/dL and patient is unable to swallow or has mental changes. dextrose 50 Yes 25mL 25 mL, Univ ers % in water 09-02 Slow IV ity of (D50W) 22:44: Push, PRN, [place] injection 34 Starting Medica l 25 mL on [facility] 09/02/21 at 1644, Until Discontinu ed, AILYN, Blood Glucose < or = 70 mg/dL and patient is unable to swallow or has mental status changes. acetaminoph Yes 650mg 650 mg, Un cameron en 09-02 Oral, ity of (TYLENOL) 21:38: Q6HPRN, [place] tablet 650 12 Starting Medic al mg on [place] Branch 09/02/21 at 1538, Until Discontinu ed, Routine, Pain (scale 1-3) ipratropium 2021- No 3mL 3 mL, Univ ers -albuteroL 09-02 Inhalation it y of (DUONEB) 19:15: 18:44 , ONCE, 1 [place] 0.5 mg-3 00 :00 dose, On Medical mg(2.5 mg [facility] base)/3 mL 09/02/21 at nebulizer 1315, AILYN solution 3 mL Saxagliptin 2021- No 2.5mg Take 2.5 Univers 2.5 mg 09-02 mg by ity of tablet 18:17: 00:00 mouth [place] 03 :00 daily. Medical Branch furosemide 2021- No 20mg Take 20 mg Univers 20 mg 09-02 by mouth ity of tablet 18:17: 00:00 daily. [place] 03 :00 Medical Branch busPIRone 2021- No 10mg Take 10 mg U nivers 10 mg 09-02 by mouth ity of tablet 18:17: 00:00 daily. [place] 03 :00 Medical Branch GLIPIZIDE 2021- No 10mg Take 10 mg U nivers ORAL 09-02 by mouth. ity of 18:17: 00:00 [place] 03 :00 Medical Branch amLODIPine 2021- No 5mg Take 5 mg U nivers 5 mg tablet 09-02 by mouth ity of 18:17: 00:00 daily. [place] 03 :00 Medical Branch tiotropium 2021- No Inhale. Uni vers bromide 09-02 ity of (SPIRIVA 18:17: 00:00 [place] WITH 03 :00 Medical HANDIHALER Branch INHALE) magnesium 2021- No 2g 2 g, IV Univ ers sulfate in 09-02 Piggyback, it y of water 2 16:45: 16:45 ONCE, 1 [place] gram/50 mL 00 :00 dose, On Medic al (4 %) [facility] infusion 2 09/02/21 at g 1045, AILYN [...] 40 mg 1045, STAT benzonatate 0 Yes [id number] 100mg Take 1 Univers 100 mg 1-23 capsule by ity of capsule 00:00: mouth 3 00 (three) Medical times Branch daily as needed for Cough. albuterol Yes [id number] 2{puff} Inhale 2 Univers 90 1-23 Puffs ity of mcg/actuati 00:00: every 4 [place] on inhaler 00 (four) Medical hours as Branch needed for Wheezing or Shortness of Breath. albuterol Yes [id number] 2.5mg Inhale 3 Univers 2.5 mg /3 1-23 mL every 4 ity of mL (0.083 00:00: (four) [place] %) 00 hours. May Medical nebulizer also Branch solution nebulize one extra every 6 hours. furosemide 0 Yes [id number] 20mg Take 1 U nivers 20 mg 1-23 tablet by ity of tablet 00:00: mouth [place] 00 every Medical morning. Branch benzonatate 2021-0 Yes [id number] 100mg Take 1 Univers 100 mg 1-23 capsule by ity of capsule 00:00: mouth 3 [place] 00 (three) Medical times Branch daily as needed for Cough. albuterol 2021-0 Yes [id number] 2{puff} Inhale 2 Univers 90 1-23 Puffs ity of mcg/actuati 00:00: every 4 [place] on inhaler 00 (four) Medical hours as Branch needed for Wheezing or Shortness of Breath. albuterol 2021-0 Yes [id number] 2.5mg Inhale 3 Univers 2.5 mg /3 1-23 mL every 4 ity of mL (0.083 00:00: (four) [place] %) 00 hours. May Medical nebulizer also Branch solution nebulize one extra every 6 hours. furosemide 2021-0 Yes [id number] 20mg Take 1 U nivers 20 mg 1-23 tablet by ity of tablet 00:00: mouth [place] 00 every Medical morning. Branch benzonatate 2021-0 Yes [id number] 100mg Take 1 Univers 100 mg 1-23 capsule by ity of capsule 00:00: mouth 3 (three) Medical times Branch daily as needed for Cough. albuterol 2021-0 Yes [id number] 2{puff} Inhale 2 Univers 90 1-23 Puffs ity of mcg/actuati 00:00: every 4 [place] on inhaler 00 (four) Medical hours as Branch needed for Wheezing or Shortness of Breath. albuterol 2021-0 Yes [id number] 2.5mg Inhale 3 Univers 2.5 mg /3 1-23 mL every 4 ity of mL (0.083 00:00: (four) [place] %) 00 hours. May Medical nebulizer also Branch solution nebulize one extra every 6 hours. furosemide 2021-0 Yes [id number] 20mg Take 1 U nivers 20 mg 1-23 tablet by ity of tablet 00:00: mouth [place] 00 every Medical morning. Branch benzonatate 2021-0 Yes [id number] 100mg Take 1 Univers 100 mg 1-23 capsule by ity of capsule 00:00: mouth 3 (three) Medical times Branch daily as needed for Cough. albuterol 2021-0 Yes [id number] 2{puff} Inhale 2 Univers 90 1-23 Puffs ity of mcg/actuati 00:00: every 4 [place] on inhaler 00 (four) Medical hours as Branch needed for Wheezing or Shortness of Breath. albuterol 2021-0 Yes [id number] 2.5mg Inhale 3 Univers 2.5 mg /3 1-23 mL every 4 ity of mL (0.083 00:00: (four) [place] %) 00 hours. May Medical nebulizer also Branch solution nebulize one extra every 6 hours. furosemide Yes [id number] 20mg Take 1 U nivers 20 mg -23 tablet by ity of tablet 00:00: mouth [place] 00 every Medical morning. Branch predniSONE 2021- No [id number] 40mg Take 2 Univers 20 mg 1-02 09-31 tablets by ity of tablet 00:00: 05:59 mouth [place] 00 :00 daily for Medical 7 days. Branch budesonide- Yes [id number] 2{puff} Inhale 2 Univers formoterol 3-29 Puffs 2 ity of (SYMBICORT) 00:00: (two) [place] 160-4.5 00 times Medical mcg/actuati daily. Branch on inhaler budesonide- Yes [id number] 2{puff} Inhale 2 Univers formoterol 3-29 Puffs 2 ity of (SYMBICORT) 00:00: (two) [place] 160-4.5 00 times Medical mcg/actuati daily. Branch on inhaler budesonide- Yes [id number] 2{puff} Inhale 2 Univers formoterol 3-29 Puffs 2 ity of (SYMBICORT) 00:00: (two) [place] 160-4.5 00 times Medical mcg/actuati daily. Branch on inhaler budesonide- Yes [id number] 2{puff} Inhale 2 Univers formoterol 3-29 Puffs [...] Immunizations Ordered Filled Immunization Date Status Comments [facility] e Immunization Name Name Pneumococcal 13 2017-10-06 Completed Universit y of Conjugate, PCV13 00:00:00 [facility] dical (Prevnar 13) Branch Pneumococcal 13 2017-10-06 Completed Universit y of Conjugate, PCV13 00:00:00 [facility] dical (Prevnar 13) Branch Pneumococcal 13 2017-10-06 Completed Universit y of Conjugate, PCV13 00:00:00 [facility] dical (Prevnar 13) Branch Pneumococcal 13 2017-10-06 Completed Universit y of Conjugate, PCV13 00:00:00 [facility] dical (Prevnar 13) Branch Influenza Virus 2017-05-11 Completed Universit y of Vaccine 00:00:00 [place] [facility] Influenza Virus 2017-05-11 Completed Universit y of Vaccine 00:00:00 [place] [facility] Influenza Virus 2017-05-11 Completed Universit y of Vaccine 00:00:00 [place] [facility] Influenza Virus 2017-05-11 Completed Universit y of Vaccine 00:00:00 [place] [facility] Vital Signs Vital Name Observation Time Observation Value Comments Source Systolic blood 2021-09-11 22:27:00 126 mm[Hg] Univer sity of pressure [place] [facility] Diastolic blood 2021-09-11 22:27:00 66 mm[Hg] Unive rsity of pressure [place] [facility] Heart rate 2021-09-11 22:27:00 77 /min Universi ty [facility] Body temperature 2021-09-11 22:27:00 37 Jazmin [facility] Respiratory rate 2021-09-11 22:27:00 18 /min [facility] Oxygen saturation in 2021-09-11 22:27:00 96 /min [facility] Arterial blood by [facility] Pulse oximetry [place] Body weight 2021-09-10 10:13:00 91.627 kg Universi ty [facility] BMI 2021-09-10 10:13:00 29.83 kg/m2 [facility] Body height 2021-09-02 15:19:[address] [facility] height 2020-07-31 11:30:00 69 [in_i] [facility] weight 2020-07-31 11:30:00 210.8 [lb_av] [facility] temperature 2020-07-31 11:30:00 98.3 [degF] Common [facility] bmi 2020-07-31 11:30:00 31.13 kg/m2 [facility] oximetry 2020-07-31 11:30:00 97 % [facility] blood pressure 2020-07-31 11:30:00 169 mm[Hg] [facility] - systolic [facility] blood pressure 2020-07-31 11:30:00 76 mm[Hg] [facility] - diastolic [facility] Procedures Procedure Date / Time Performing Clinician Source Performed EXTERNAL PROVIDER RECORDS 2022-10-09 06:01:00 Doctor Unassigned, [facility] [place] [facility] AUTHORIZATION FOR RELEASE 2021-10-11 06:01:00 Doctor Unassigned, [facility] [place] [facility] POCT GLUCOSE (AUTOMATED) 2021-09-11 17:51:00 Jere Woodward Uni versity of [place] [facility] POCT GLUCOSE (AUTOMATED) 2021-09-11 14:11:00 [facility]ward [facility] BASIC METABOLIC PANEL (NA, 2021-09-11 10:33:[facility], CO2, GLUCOSE, BUN, Medica l Branch CREATININE, [place]) CBC WITH DIFF 2021-09-11 10:33:00 Lance Solis [facility] POCT GLUCOSE (AUTOMATED) 2021-09-11 02:20:00 Jere Woodward Uni versity of [place] [facility] POCT GLUCOSE (AUTOMATED) 2021-09-10 23:10:00 Jere Woodward Uni versity of [place] [facility] POCT GLUCOSE (AUTOMATED) 2021-09-10 17:41:00 Jere Woodward Uni versity of [place] [facility] POCT GLUCOSE (AUTOMATED) 2021-09-10 13:53:00 Jere Woodward Uni versity of [place] [facility] POCT GLUCOSE (AUTOMATED) 2021-09-10 03:13:00 Jere Woodward Uni versity of [place] [facility] POCT GLUCOSE (AUTOMATED) 2021-09-09 23:15:00 Jere Woodward Uni versity of [place] [facility] POCT GLUCOSE (AUTOMATED) 2021-09-09 17:16:00 Jere Woodward Uni versity of [place] [facility] POCT GLUCOSE (AUTOMATED) 2021-09-09 13:49:00 Jere Woodward Uni versity of [place] [facility] BASIC METABOLIC PANEL (NA, 2021-09-09 11:00:00 Lance Solis [facility] K, CL, CO2, GLUCOSE, BUN, Medica l Branch CREATININE, [place]) LIPID PANEL ([id number])(TOTAL 2021-09-09 11:00:00 Katya Ayoub [facility] CHOLESTEROL, [facility] Branch TRIGLYCERIDES, HDL) CBC WITH DIFF 2021-09-09 11:00:00 Lance Solis [facility] N-TERMINAL PRO-BNP 2021-09-09 11:00:00 Leslie Garcia [facility] POCT GLUCOSE (AUTOMATED) 2021-09-09 03:38:00 Jere Woodward Uni versity [facility] POCT GLUCOSE (AUTOMATED) 2021-09-08 23:10:00 Jere Woodward Uni versity [facility] POCT GLUCOSE (AUTOMATED) 2021-09-08 17:41:00 Jere Woodward Uni versity [facility] POCT GLUCOSE (AUTOMATED) 2021-09-08 13:46:00 Jere Woodward Uni versity [facility] POCT GLUCOSE (AUTOMATED) 2021-09-08 03:01:00 Je[facility]ward [facility] POCT GLUCOSE (AUTOMATED) 2021-09-07 22:41:00 Jere Woodward Uni versity [facility] POCT GLUCOSE (AUTOMATED) 2021-09-07 18:09:00 [facility]re [facility]ard [facility] POCT GLUCOSE (AUTOMATED) 2021-09-07 14:17:00 [facility] BASIC METABOLIC PANEL (NA, 2021-09-07 11:30:00 Lance Solis [facility] K, CL, CO2, GLUCOSE, BUN, Medica l Branch CREATININE, CA) CBC WITH DIFF 2021-09-07 11:30:00 Lance Solis [facility] POCT GLUCOSE (AUTOMATED) 2021-09-07 03:00:00 Jere Woodward versity [facility] POCT GLUCOSE (AUTOMATED) 2021-09-07 01:32:00 Jere Woodward Uni versity [facility] POCT GLUCOSE (AUTOMATED) 2021-09-06 22:54:00 Jere Woodward Uni versity [facility] POCT GLUCOSE (AUTOMATED) 2021-09-06 17:37:00 Abdullah, Jere [facility] EXTRA TUBE URINE CULTURE 2021-09-06 14:38:00 Larry Martinez [facility] URINALYSIS MICROSCOPIC 2021-09-06 14:35:00 James Romeo [facility] CREATININE, URINE RANDOM 2021-09-06 14:35:00 James Romeo [facility] UREA NITROGEN, URINE 2021-09-06 14:35:00 James Romeo [facility] POCT GLUCOSE (AUTOMATED) 2021-09-06 13:47:00 Jere Woodward [facility] PHOSPHORUS 2021-09-06 08:42:00 Trace Jere [facility] MAGNESIUM 2021-09-06 08:42:00 [facility] TROPONIN I 2021-09-06 08:42:00 Trace [facility] BASIC METABOLIC PANEL (NA, 2021-09-06 08:42:00 James Romeo [facility] K, CL, CO2, GLUCOSE, BUN, Medica l Branch CREATININE, CA) CBC WITH DIFF 2021-09-06 08:42:00 [facility] ABDOMINAL AORTA SCREEN 2021-09-06 02:52:[address] [facility] POCT GLUCOSE (AUTOMATED) 2021-09-06 02:49:00 Jere Woodward [facility] POCT GLUCOSE (AUTOMATED) 2021-09-05 22:13:00 Jere Woodward [facility] VANCOMYCIN RANDOM LEVEL 2021-09-05 22:08:00 Mahogany Rodriguez [facility] POCT GLUCOSE (AUTOMATED) 2021-09-05 17:39:00 Jere Woodward [facility] BASIC METABOLIC PANEL (NA, 2021-09-05 16:12:00 Leslie Garcia [facility] K, CL, CO2, GLUCOSE, BUN, Medica l Branch CREATININE, CA) N-TERMINAL PRO-BNP 2021-09-05 16:12:00 Jose, Qiangjun [facility] POCT GLUCOSE (AUTOMATED) 2021-09-05 13:34:00 Jere Woodward [facility] POCT GLUCOSE (AUTOMATED) 2021-09-05 02:03:00 Jere Woodward [facility] POCT GLUCOSE (AUTOMATED) 2021-09-04 23:20:00 Jere Woodward [facility] RESPIRATORY PANEL BY PCR 2021-09-04 20:58:00 Mahogany Rodriguez [facility] CT ABDOMEN PELVIS WO 2021-09-04 20:44:03 Mahogany Rodriguez [facility] POCT GLUCOSE (AUTOMATED) 2021-09-04 17:38:00 Jere Woodward [facility] MRSA / MSSA SCREEN BY PCR, 2021-09-04 16:15:[address] [facility] POCT GLUCOSE (AUTOMATED) 2021-09-04 13:38:00 Jere Woodward [facility] TROPONIN I 2021-09-04 10:42:00 Monisha carolina [facility] BASIC METABOLIC PANEL (NA, 2021-09-04 10:42:00 Jere Woodward [facility] K, CL, CO2, GLUCOSE, BUN, Medica l Branch CREATININE, CA) CBC WITH DIFF 2021-09-04 10:42:00 Jere Woodward [facility] N-TERMINAL PRO-BNP 2021-09-04 10:42:00 Deborah Bearden [facility] BLOOD CULTURE SCREEN 2021-09-04 05:37:00 Deborah Bearden [facility] PROCALCITONIN 2021-09-04 05:37:00 Monisha carolina [facility] POCT GLUCOSE (AUTOMATED) 2021-09-04 02:44:00 Jere Woodward [facility] POCT GLUCOSE (AUTOMATED) 2021-09-04 01:30:00 Jere Woodward [facility] URINALYSIS 2021-09-03 22:57:00 Mirella Burdick [facility] URINE CULTURE 2021-09-03 22:57:00 Gennaro Mirella Stephanie [facility] POCT GLUCOSE (AUTOMATED) 2021-09-03 22:52:00 Jere Woodward [facility] US RETROPERITONEAL 2021-09-03 17:48:51 Eunice [facility] 2021-09-03 17:27:00 Jere Woodward [facility] TRANSTHORACIC ECHO (TTE) 2021-09-03 15:58:00 Gennaro Mirella [facility] POCT GLUCOSE (AUTOMATED) 2021-09-03 14:12:00 Jere Woodward [facility] ACUTE CARE VENOUS BLOOD 2021-09-03 10:38:00 Deborah Bearden [facility] VITAMIN B12, LEVEL 2021-09-03 09:39:00 Gennaro Mirella Stephanie [facility] URIC ACID 2021-09-03 09:38:00 Monisha carolina [facility] MAGNESIUM 2021-09-03 09:38:00 Jere Woodward [facility] TROPONIN I 2021-09-03 09:38:00 Gennaro Mirella Stephanie [facility] BASIC METABOLIC PANEL (NA, 2021-09-03 09:38:00 Jere Woodward [facility] K, CL, CO2, GLUCOSE, BUN, Medica l Branch CREATININE, CA) CBC WITH DIFF 2021-09-03 09:38:00 Jere Woodward [facility] N-TERMINAL PRO-BNP 2021-09-03 09:38:00 Deborah Bearden [facility] FREE T3 2021-09-03 09:38:00 Mirella Burdick [facility] PHOSPHORUS 2021-09-03 02:38:00 Jere Woodward [facility] URIC ACID 2021-09-03 02:38:00 Monisha Adnan [facility] Branch TROPONIN I 2021-09-03 02:38:00 Mirella Burdick [facility] POCT GLUCOSE (AUTOMATED) 2021-09-02 22:48:00 Jere Woodward [facility] POCT GLUCOSE (AUTOMATED) 2021-09-02 21:32:00 Jere Woodward [facility] ACUTE CARE ARTERIAL BLOOD 2021-09-02 16:56:00 Quinn Ibarra [facility] GAS [facility] XR CHEST 1 VW 2021-09-02 16:29:28 Quinn Ibarra [facility] RAPID INFLUENZA A/B 2021-09-02 15:40:00 [facility] COVID-19 (ID NOW RAPID 2021-09-02 15:38:00 Quinn Ibarra [facility] TESTING) [facility] LAB ONLY COVID 2021-09-02 15:38:00 Quinn Ibarra [facility] INTERPRETATION [facility] BLOOD CULTURE SCREEN 2021-09-02 15:32:00 Quinn Ibarra [facility] LIPASE 2021-09-02 15:32:00 Quinn Ibarra [facility] FERRITIN SERUM 2021-09-02 15:32:00 Mirella Burdick [facility] TROPONIN I 2021-09-02 15:32:00 Quinn Ibarra [facility] FREE T4 2021-09-02 15:32:00 Gennaro Mirella Stephanie [facility] THYROID STIMULATING 2021-09-02 15:32:00 Mirella Burdick Stephanie [facility] HORMONE [facility] COMP. METABOLIC PANEL 2021-09-02 15:32:00 [facility] ([id number]) [facility] IRON PANEL 2021-09-02 15:32:00 Gennaro Mirella Stephanie [facility] CBC WITH DIFF 2021-09-02 15:32:00 Quinn Ibarra [facility] GLYCOSYLATED HEMOGLOBIN 2021-09-02 15:32:00 Gennaro Mirella Stephanie [facility] (A1C) [facility] PROTHROMBIN TIME / INR 2021-09-02 15:32:00 Quinn Ibarra [facility] ACTIVATED PARTIAL THRMPLAS 2021-09-02 15:32:00 Quinn Ibarra [facility] N-TERMINAL PRO-BNP 2021-09-02 15:32:00 Quinn Ibarra [facility] PROCALCITONIN 2021-09-02 15:32:00 Mirella Burdick [facility] BLOOD CULTURE WORKUP 2021-09-02 15:32:00 Quinn Ibarra [facility] ECG ROUTINE & RHYTHM 2021-09-02 15:16:43 [facility] Start End Encounter Admission Attending Care Care Encounter Source Date/Time Date/Time Type Type Clinicians Facility Department ID 2021-09-05 Outpatient [facility] [id number] Common 12:23:38 [id number] [facility] 2021-09-05 [facility] [id number] Common 12:15:10 [id number] [facility] 2022-10-24 2022-10-24 Outpatient Nico[facility] [id number] Univers 16:30:00 16:30:00 [facility] 2022-10-10 2022-10-10 Outpatient Nicolette [facility] [id number] Univers 16:30:00 16:30:00 [facility] 2022-10-09 2022-10-09 Orders Doctor HANNAH [id number] Univers 00:00:00 00:00:00 Only Unassigned, CLAIR 350.1.13.10 ity of [place] [facility] 4.2.7.2.686 Naresh as [phone] [address] 2022-07-22 2022-07-22 Outpatient Twin MARTINEZ [facility] [id number] [address] 13:59:00 23:59:00 [facility] 2021-10-11 2021-10-11 Orders Doctor HANNAH [id number] Univers 00:00:00 00:00:00 Only Unassigned, CLAIR 350.1.13.10 ity of [place] [facility] 4.2.7.2.686 Naresh as [id number] [facility] 009 Branch 2021-09-12 2021-09-12 Transition [facility] [place] [id number] Univers 00:00:00 00:00:00 of Care Hemanth AMAYA 350.1.13.10 [place] [id number] [facility] 403 Branch 2021-09-02 2021-09-11 Inpatient X TRACE [facility] [id number] Univers 09:15:00 18:12:00 JERE ity of [place] [facility] 2021-09-02 2021-09-11 [facility] Quinn Ibarra [facility] 1.2.840 .114 [id number] Univers 09:15:00 18:12:00 Encounter [facility] 350.1.13.10 [place] [id number] [facility] 081 Branch 2020-08-02 2020-08-02 (TEL) STLMLC STLMLC [id number] Co mmon 00:00:00 00:00:00 [facility] 2020-07-31 2020-07-31 OFFICE STLMLC STLMLC [id number] Co mmon 00:00:00 00:00:00 VISIT [facility] it PT LEVEL 4 [facility] Results Test Description Test Time Test Comments Results Result [facility] e Comments NM LUNG (V/Q ) 2022-07-22 SCAN W ISOTOPE 15:46:51 [facility] : 1945 Sex: M Radio nuclide perfusion lung scanLocation Code: [id number]: Pulmonary embolus with shortness of breathCOMPARISON: Chest [...] by: Axel Gupta MD 07/22/2022 3:46 PM REFRACTORY BRICKLAYER XR CHEST 1 VIEW 2022-07-22 PORTABLE 15:45:57 [facility] : 1945 Sex: M [...] by: Bienvenido Cuenca MD 07/22/2022 3:45 PM REFRACTORY BRICKLAYER POCT GLUCOSE (AUTOMATED) 2021-09-11 17:56:19 Test Item Value Reference Range Interpretation Comme nts POCT GLU (test code = 6863330311) 143 mg/dL 70-110 H Lab Interpretation (test code = 07264-3) Abnormal [facility] GLUCOSE (AUTOMATED)2021-09-11 14:31:01 Test Item Value Reference Range Interpretation Comments POCT GLU (test code = 7954995666) 140 mg/dL 70-110 H Lab Interpretation (test code = Abnormal 37294-0) [facility] METABOLIC PANEL (NA, K, CL, CO2, GLUCOSE, BUN, CREATININE, CA)2021-09-11 11:27:07 Test Item Value Reference Range Interpretation Comments NA (test code = 142 mmol/L 135-145 6387700273) K (test code = 4.7 mmol/L 3.5-5.0 7259277863) CL (test code = 116 mmol/L 98-108 H 0696920781) CO2 TOTAL (test code = 21 mmol/L 23-31 L 1184639271) AGAP (test code = 2-16 4126714765) BUN (test code = 53 mg/dL 7-23 H 0718182741) GLUCOSE (test code = 126 mg/dL 70-110 H 3674190938) CREATININE (test code = 2.92 mg/dL 0.60-1.25 H 7634541442) CALCIUM (test code = 8.8 mg/dL 8.6-10.6 5718163209) eGFR (test code = mL/min/1.73m2 8231429153) RADHA (test code = RADHA) Association of [...] tests). Lab Interpretation Abnormal (test code = 86706-1) [facility] WITH [id number] 11:10:42 Test Item Value Reference Range Interpretation Comments WBC (test code = See_Comment [Automated 0890-2) message] The sy stem which generated this [...] (test code = 52.9 fL 38.5-51.6 H 23669-1) RDW-CV (test code = 15.3 % 12.1-15.4 788-0) PLT (test code = See_Comment [Automated 777-3) message] The sy stem which generated this result transmitted reference range : 150 - 328 10*3/ ?L. The reference r hilary was not used to interpret this result as normal/abnormal . MPV (test code = 10.4 fL 9.8-13.0 41151-0) NRBC/100 WBC (test See_Comment [Automat ed code = 0392781447) message] The system which generated this result transmitted reference range : 0.0 - 10.0 /100 WBCs. The refer ence range was not u sed to interpret th is result as normal/abnormal . NRBC x10^3 (test code <0.01 See_Comment [Auto mated = 2162234277) message] The s ystem which generated this result transmitted reference range : 10*3/?L. The reference range was not used to interpret this result as normal/abnormal . GRAN MAT (NEUT) % 77.5 % (test code = 770-8) IMM GRAN % (test code 0.50 % = 0159298693) LYMPH % (test code = 15.6 % 736-9) MONO % (test code = 5.5 % 5905-5) EOS % (test code = 0.9 % 713-8) BASO % (test code = 0.0 % 706-2) GRAN MAT x10^3(ANC) 4.93 10*3/uL 1.99-6.95 (test code = 3865528779) IMM GRAN x10^3 (test 0.03 10*3/uL 0.00-0.06 code = 1032144689) LYMPH x10^3 (test code 0.99 10*3/uL 1.09-3.23 L = 731-0) MONO x10^3 (test code 0.35 10*3/uL 0.36-1.02 L = 742-7) EOS x10^3 (test code = 0.06 10*3/uL 0.06-0.53 711-2) BASO x10^3 (test code <0.03 0.01-0.09 = 704-7) Lab Interpretation Abnormal (test code = 45845-8) [facility] GLUCOSE (AUTOMATED)2021-09-11 02:38:30 Test Item Value Reference Range Interpretation Comments POCT GLU (test code = 5812149531) 195 mg/dL 70-110 H Lab Interpretation (test code = Abnormal 72134-6) [facility] GLUCOSE (AUTOMATED)2021-09-10 23:44:28 Test Item Value Reference Range Interpretation Comments POCT GLU (test code = 0859742011) 147 mg/dL 70-110 H Lab Interpretation (test code = Abnormal 91317-9) [facility] GLUCOSE (AUTOMATED)2021-09-10 18:03:55 Test Item Value Reference Range Interpretation Comments POCT GLU (test code = 8634728545) 162 mg/dL 70-110 H Lab Interpretation (test code = Abnormal 39539-4) [facility]TOTAL CHOLESTEROL, TRIGLYCERIDES, HDL)2021-09-10 16:55:36 Test Item Value Reference Range Interpretation Comments CHOL (test code = 93 mg/dL 120-200 L 6890954086) HDL (test code = 56 mg/dL >40 9250622331) HDLC RATIO (test code = See_Comment [Au tomated message] 8302172723) The system [employer] generated this result transmitted ref erence range: <=5.0. T he reference range was not used to int erpret this result as normal/abnormal . TRIG (test code = 85 mg/dL 30-170 9220170247) LDL CHOL (test code = 20 mg/dL See_Comment [Auto mated message] 51108-5) The system [employer] generated this result transmitted ref erence range: <=160. T he reference range was not used to int erpret this result as normal/abnormal . VLDL (test code = 17 mg/dL 5-60 5300792095) Lab Interpretation (test Abnormal code = 80090-0) [facility] GLUCOSE (AUTOMATED)2021-09-10 14:34:31 Test Item Value Reference Range Interpretation Comments POCT GLU (test code = 5674334190) 150 mg/dL 70-110 H Lab Interpretation (test code = Abnormal 15719-5) [facility] GLUCOSE (AUTOMATED)2021-09-10 03:18:02 Test Item Value Reference Range Interpretation Comments POCT GLU (test code = 3274773384) 163 mg/dL 70-110 H Lab Interpretation (test code = Abnormal 12576-0) [facility] GLUCOSE (AUTOMATED)2021-09-09 23:22:00 Test Item Value Reference Range Interpretation Comments POCT GLU (test code = 2754067130) 153 mg/dL 70-110 H Lab Interpretation (test code = Abnormal 50522-8) [facility] [id number] 20:42:21 Test Item Value Reference Range Interpretation Comments NT-proBNP (test code 3860 pg/mL See_Comment H [Autom ated = 9039728375) message] The system which generated this result transmitted reference range : <=450. The reference range was not used to interpret this result as normal/abnormal . RADHA (test code = RADHA) Biotin has been reported to cause a negative bias, interpret results relative to patient's use of biotin. Lab Interpretation Abnormal (test code = 73841-3) [facility] GLUCOSE (AUTOMATED)2021-09-09 17:29:37 Test Item Value Reference Range Interpretation Comments POCT GLU (test code = 0427559045) 121 mg/dL 70-110 H Lab Interpretation (test code = Abnormal 13111-0) [facility] GLUCOSE (AUTOMATED)2021-09-09 13:54:41 Test Item Value Reference Range Interpretation Comments POCT GLU (test code = 6414709953) 118 mg/dL 70-110 H Lab Interpretation (test code = Abnormal 90513-4) [facility] (NA, K, CL, CO2, GLUCOSE, BUN, CREATININE, CA)2021-09-09 13:01:38 Test Item Value Reference Range Interpretation Comments NA (test code = 141 mmol/L 135-145 5065880548) K (test code = 4.7 mmol/L 3.5-5.0 4424326558) CL (test code = 115 mmol/L 98-108 H 4270351285) CO2 TOTAL (test code = 22 mmol/L 23-31 L 2400035102) AGAP (test code = 2-16 3169982518) BUN (test code = 59 mg/dL 7-23 H 7029708629) GLUCOSE (test code = 114 mg/dL 70-110 H 4106649499) CREATININE (test code = 3.09 mg/dL 0.60-1.25 H 1014965822) CALCIUM (test code = 8.9 mg/dL 8.6-10.6 3088137276) eGFR (test code = mL/min/1.73m2 3889716981) RADHA (test code = RADHA) Association of [...] tests). Lab Interpretation Abnormal (test code = 74387-9) [facility] WITH [id number] 12:42:15 Test Item Value Reference Range Interpretation Comments WBC (test code = See_Comment [Automated 2175-2) message] The sy stem which generated this result transmitted reference range : 4.20 - 10.70 10*3/?L. The reference range was not used to interpret this result as normal/abnormal . RBC (test code = See_Comment L [Automated 209-8) message] The sy stem which generated this [...] (test code = 52.5 fL 38.5-51.6 H 67453-5) RDW-CV (test code = 15.1 % 12.1-15.4 788-0) PLT (test code = See_Comment [Automated 777-3) message] The sy stem which generated this result transmitted reference range : 150 - 328 10*3/ ?L. The reference r hilary was not used to interpret this result as normal/abnormal . MPV (test code = 10.5 fL 9.8-13.0 01670-1) NRBC/100 WBC (test See_Comment [Automat ed code = 8146545957) message] The system which generated this result transmitted reference range : 0.0 - 10.0 /100 WBCs. The refer ence range was not u sed to interpret th is result as normal/abnormal . NRBC x10^3 (test code <0.01 See_Comment [Auto mated = 4988730091) message] The s ystem which generated this result transmitted reference range : 10*3/?L. The reference range was not used to interpret this result as normal/abnormal . GRAN MAT (NEUT) % 81.8 % (test code = 770-8) IMM GRAN % (test code 0.50 % = 1138036347) LYMPH % (test code = 13.0 % 736-9) MONO % (test code = 4.3 % 5905-5) EOS % (test code = 0.4 % 713-8) BASO % (test code = 0.0 % 706-2) GRAN MAT x10^3(ANC) 6.71 10*3/uL 1.99-6.95 (test code = 9682166033) IMM GRAN x10^3 (test 0.04 10*3/uL 0.00-0.06 code = 4362585496) LYMPH x10^3 (test code 1.07 10*3/uL 1.09-3.23 L = 731-0) MONO x10^3 (test code 0.35 10*3/uL 0.36-1.02 L = 742-7) EOS x10^3 (test code = 0.03 10*3/uL 0.06-0.53 L 711-2) BASO x10^3 (test code <0.03 0.01-0.09 = 704-7) Lab Interpretation Abnormal (test code = 23428-3) [facility] CULTURE [id number] 06:01:53 Test Item Value Reference Range Interpretation Comments Blood Culture-Aerobic No organisms No growth Previo us (test code = 18856-3) isolated prelim inary verified result was Culture In Progress on 09/04/2021 at 03 01 CSTPrevious preliminary verified result was No growth a t 24 hours on 09/05/2021 at 00 01 CSTPrevious preliminary verified result was No growth a t 48 hours on 09/06/2021 at 00 01 CSTPrevious preliminary verified result was No growth a t 72 hours on 09/07/2021 at 00 01 REFRACTORY BRICKLAYER Blood No organisms No growth Previous Culture-Anaerobic isolated preliminar y (test code = 67484-7) verifi ed result was Culture In Progress on 09/04/2021 at 03 01 CSTPrevious preliminary verified result was No growth a t 24 hours on 09/05/2021 at 00 01 CSTPrevious preliminary verified result was No growth a t 48 hours on 09/06/2021 at 00 01 CSTPrevious preliminary verified result was No growth a t 72 hours on 09/07/2021 at 00 01 REFRACTORY BRICKLAYER Lab Interpretation Normal (test code = 88855-9) [facility] CULTURE [id number] 06:01:53 Test Item Value Reference Range Interpretation Comments Blood Culture-Aerobic No organisms No growth Previo us (test code = 04481-9) isolated prelim inary verified result was Culture In Progress on 09/04/2021 at 03 01 CSTPrevious preliminary verified result was No growth a t 24 hours on 09/05/2021 at 00 01 CSTPrevious preliminary verified result was No growth a t 48 hours on 09/06/2021 at 00 01 CSTPrevious preliminary verified result was No growth a t 72 hours on 09/07/2021 at 00 01 REFRACTORY BRICKLAYER Blood No organisms No growth Previous Culture-Anaerobic isolated preliminar y (test code = 60149-5) verifi ed result was Culture In Progress on 09/04/2021 at 03 01 CSTPrevious preliminary verified result was No growth a t 24 hours on 09/05/2021 at 00 01 CSTPrevious preliminary verified result was No growth a t 48 hours on 09/06/2021 at 00 01 CSTPrevious preliminary verified result was No growth a t 72 hours on 09/07/2021 at 00 01 REFRACTORY BRICKLAYER Lab Interpretation Normal (test code = 79794-7) [facility] GLUCOSE (AUTOMATED)2021-09-09 03:41:10 Test Item Value Reference Range Interpretation Comments POCT GLU (test code = 7563912132) 196 mg/dL 70-110 H Lab Interpretation (test code = Abnormal 88087-9) [facility] GLUCOSE (AUTOMATED)2021-09-08 23:12:05 Test Item Value Reference Range Interpretation Comments POCT GLU (test code = 6852038538) 138 mg/dL 70-110 H Lab Interpretation (test code = Abnormal 76874-8) [facility] GLUCOSE (AUTOMATED)2021-09-08 17:46:12 Test Item Value Reference Range Interpretation Comments POCT GLU (test code = 6662773290) 181 mg/dL 70-110 H Lab Interpretation (test code = Abnormal 15299-0) [facility] GLUCOSE (AUTOMATED)2021-09-08 13:53:55 Test Item Value Reference Range Interpretation Comments POCT GLU (test code = 0403296211) 179 mg/dL 70-110 H Lab Interpretation (test code = Abnormal 85687-3) [facility] GLUCOSE (AUTOMATED)2021-09-08 03:04:37 Test Item Value Reference Range Interpretation Comments POCT GLU (test code = 7480308233) 241 mg/dL 70-110 H Lab Interpretation (test code = Abnormal 51778-4) [facility] GLUCOSE (AUTOMATED)2021-09-07 23:44:53 Test Item Value Reference Range Interpretation Comments POCT GLU (test code = 5156844093) 268 mg/dL 70-110 H Lab Interpretation (test code = Abnormal 92793-6) [facility] GLUCOSE (AUTOMATED)2021-09-07 19:18:14 Test Item Value Reference Range Interpretation Comments POCT GLU (test code = 9184503827) 208 mg/dL 70-110 H Lab Interpretation (test code = Abnormal 12658-7) [facility] # [id number] 16:02:10 Test Item Value Reference Range Interpretation Comments Blood Culture-Aerobic No organisms No growth Previo us (test code = 05898-5) isolated prelim inary verified result was Culture In Progress on 09/02/2021 at 13 02 CSTPrevious preliminary verified result was No growth a t 24 hours on 09/03/2021 at 10 01 CSTPrevious preliminary verified result was No growth a t 48 hours on 09/04/2021 at 10 01 CSTPrevious preliminary verified result was No growth a t 72 hours on 09/05/2021 at 10 01 REFRACTORY BRICKLAYER Blood No organisms No growth Previous Culture-Anaerobic isolated preliminar y (test code = 20109-9) verifi ed result was Culture In Progress on 09/02/2021 at 13 02 CSTPrevious preliminary verified result was No growth a t 24 hours on 09/03/2021 at 10 01 CSTPrevious preliminary verified result was No growth a t 48 hours on 09/04/2021 at 10 01 CSTPrevious preliminary verified result was No growth a t 72 hours on 09/05/2021 at 10 01 REFRACTORY BRICKLAYER Lab Interpretation Normal (test code = 03792-6) [facility] GLUCOSE (AUTOMATED)2021-09-07 15:05:58 Test Item Value Reference Range Interpretation Comments POCT GLU (test code = 2554036293) 158 mg/dL 70-110 H Lab Interpretation (test code = Abnormal 35667-9) [facility] (NA, K, CL, CO2, GLUCOSE, BUN, CREATININE, CA)2021-09-07 12:31:00 Test Item Value Reference Range Interpretation Comments NA (test code = 140 mmol/L 135-145 8358431494) K (test code = 4.9 mmol/L 3.5-5.0 9358460567) CL (test code = 113 mmol/L 98-108 H 5231997595) CO2 TOTAL (test code = 22 mmol/L 23-31 L 6400728919) AGAP (test code = 2-16 2451987305) BUN (test code = 51 mg/dL 7-23 H 2473250117) GLUCOSE (test code = 179 mg/dL 70-110 H 0679155373) CREATININE (test code = 2.98 mg/dL 0.60-1.25 H 3015709282) CALCIUM (test code = 9.0 mg/dL 8.6-10.6 9153645536) eGFR (test code = mL/min/1.73m2 6200908532) RADHA (test code = RADHA) Association of [...] tests). Lab Interpretation Abnormal (test code = 09554-6) [facility] WITH [id number] 12:23:57 Test Item Value Reference Range Interpretation [...] (test code = 51.8 fL 38.5-51.6 H 68883-1) RDW-CV (test code = 14.9 % 12.1-15.4 788-0) PLT (test code = See_Comment [Automated 777-3) message] The sy stem which generated this result transmitted reference range : 150 - 328 10*3/ ?L. The reference r hilary was not used to interpret this result as normal/abnormal . MPV (test code = 10.1 fL 9.8-13.0 01048-0) NRBC/100 WBC (test See_Comment [Automat ed code = 8081059227) message] The system which generated this result transmitted reference range : 0.0 - 10.0 /100 WBCs. The refer ence range was not u sed to interpret th is result as normal/abnormal . NRBC x10^3 (test code <0.01 See_Comment [Auto mated = 2984300937) message] The s ystem which generated this result transmitted reference range : 10*3/?L. The reference range was not used to interpret this result as normal/abnormal . GRAN MAT (NEUT) % 88.6 % (test code = 770-8) IMM GRAN % (test code 0.40 % = 7312253732) LYMPH % (test code = 7.1 % 736-9) MONO % (test code = 3.8 % 5905-5) EOS % (test code = 0.0 % 713-8) BASO % (test code = 0.1 % 706-2) GRAN MAT x10^3(ANC) 6.02 10*3/uL 1.99-6.95 (test code = 6623539404) IMM GRAN x10^3 (test 0.03 10*3/uL 0.00-0.06 code = 4841955763) LYMPH x10^3 (test code 0.48 10*3/uL 1.09-3.23 L = 731-0) MONO x10^3 (test code 0.26 10*3/uL 0.36-1.02 L = 742-7) EOS x10^3 (test code = <0.03 0.06-0.53 L 711-2) BASO x10^3 (test code <0.03 0.01-0.09 = 704-7) Lab Interpretation Abnormal (test code = 08805-4) [facility] GLUCOSE (AUTOMATED)2021-09-07 03:05:46 Test Item Value Reference Range Interpretation Comments POCT GLU (test code = 0965969513) 235 mg/dL 70-110 H Lab Interpretation (test code = Abnormal 95324-2) [facility] GLUCOSE (AUTOMATED)2021-09-07 01:42:32 Test Item Value Reference Range Interpretation Comments POCT GLU (test code = 0631536228) 291 mg/dL 70-110 H Lab Interpretation (test code = Abnormal 87177-6) [facility] GLUCOSE (AUTOMATED)2021-09-06 22:58:03 Test Item Value Reference Range Interpretation Comments POCT GLU (test code = 2868470240) 291 mg/dL 70-110 H Lab Interpretation (test code = Abnormal 12149-4) [facility] GLUCOSE (AUTOMATED)2021-09-06 17:52:21 Test Item Value Reference Range Interpretation Comments POCT GLU (test code = 2145236613) 185 mg/dL 70-110 H Lab Interpretation (test code = Abnormal 74534-6) [facility] GLUCOSE (AUTOMATED)2021-09-06 14:03:24 Test Item Value Reference Range Interpretation Comments POCT GLU (test code = 6451572799) 131 mg/dL 70-110 H Lab Interpretation (test code = Abnormal 97471-9) [facility] WITH [id number] 09:20:33 Test Item Value Reference Range Interpretation [...] (test code = 53.1 fL 38.5-51.6 H 71712-0) RDW-CV (test code = 15.1 % 12.1-15.4 788-0) PLT (test code = See_Comment [Automated 777-3) message] The sy stem which generated this result transmitted reference range : 150 - 328 10*3/ ?L. The reference r hilary was not used to interpret this result as normal/abnormal . MPV (test code = 10.0 fL 9.8-13.0 22560-0) NRBC/100 WBC (test See_Comment [Automat ed code = 0950447785) message] The system which generated this result transmitted reference range : 0.0 - 10.0 /100 WBCs. The refer ence range was not u sed to interpret th is result as normal/abnormal . NRBC x10^3 (test code <0.01 See_Comment [Auto mated = 8478565283) message] The s [employer] which generated this result transmitted reference range : 10*3/?L. The reference range was not used to interpret this result as normal/abnormal . GRAN MAT (NEUT) % 85.6 % (test code = 770-8) IMM GRAN % (test code 0.70 % = 7102510436) LYMPH % (test code = 8.9 % 736-9) MONO % (test code = 4.7 % 5905-5) EOS % (test code = 0.0 % 713-8) BASO % (test code = 0.1 % 706-2) GRAN MAT x10^3(ANC) 6.55 10*3/uL 1.99-6.95 (test code = 5713691253) IMM GRAN x10^3 (test 0.05 10*3/uL 0.00-0.06 code = 8262469756) LYMPH x10^3 (test code 0.68 10*3/uL 1.09-3.23 L = 731-0) MONO x10^3 (test code 0.36 10*3/uL 0.36-1.02 = 742-7) EOS x10^3 (test code = <0.03 0.06-0.53 L 711-2) BASO x10^3 (test code <0.03 0.01-0.09 = 704-7) Lab Interpretation Abnormal (test code = 49236-8) [facility] [id number] 09:14:11 Test Item Value Reference Interpretation Comments Range TROPONIN I (test 0.061 ng/mL See_Comment H [Automated code = 8579904869) message] The system which generated this result [...] biotin. Lab Interpretation Abnormal (test code = 52000-4) [facility]2022-[facility]-27 09:02:46 Test Item Value Reference Range Interpretation Comments MAGNESIUM (test code = 1989840739) 2.0 mg/dL 1.7-2.4 Lab Interpretation (test code = Normal 20060-1) [facility] (NA, K, CL, CO2, GLUCOSE, BUN, CREATININE, CA)2021-09-06 09:02:26 Test Item Value Reference Range Interpretation Comments NA (test code = 138 mmol/L 135-145 2431707795) K (test code = 5.2 mmol/L 3.5-5.0 H 9420798605) CL (test code = 112 mmol/L 98-108 H 2793946474) CO2 TOTAL (test code = 21 mmol/L 23-31 L 6276133077) AGAP (test code = 2-16 5158785875) BUN (test code = 51 mg/dL 7-23 H 5657157170) GLUCOSE (test code = 137 mg/dL 70-110 H 0251199761) CREATININE (test code = 3.15 mg/dL 0.60-1.25 H 1510256475) CALCIUM (test code = 9.1 mg/dL 8.6-10.6 4774142203) eGFR (test code = mL/min/1.73m2 7869896057) RADHA (test code = RADHA) Association of [...] tests). Lab Interpretation Abnormal (test code = 17878-4) [facility]2022-01-27 09:02:26 Test Item Value Reference Range Interpretation Comments PHOSPHORUS (test code = 2876786476) 3.4 mg/dL 2.5-5.0 Lab Interpretation (test code = Normal 37773-3) [facility] GLUCOSE (AUTOMATED)2021-09-06 02:58:54 Test Item Value Reference Range Interpretation Comments POCT GLU (test code = 1805128083) 229 mg/dL 70-110 H Lab Interpretation (test code = Abnormal 84447-0) [facility]land[facility]comycin Random [id number] 23:36:47 Test Item Value Reference Range Interpretation Comments VANCO RANDOM (test code = 7.6 ug/mL 9860204214) [facility] GLUCOSE (AUTOMATED)2021-09-05 22:23:59 Test Item Value Reference Range Interpretation Comments POCT GLU (test code = 7906221567) 307 mg/dL 70-110 H Lab Interpretation (test code = Abnormal 14857-8) [facility] GLUCOSE (AUTOMATED)2021-09-05 17:43:53 Test Item Value Reference Range Interpretation Comments POCT GLU (test code = 5153904045) 133 mg/dL 70-110 H Lab Interpretation (test code = Abnormal 48124-4) [facility] [id number] 17:02:17 Test Item Value Reference Range Interpretation Comments NT-proBNP (test code 4570 pg/mL See_Comment H [Autom ated = 7726542497) message] The system which generated this result transmitted reference range : <=450. The reference range was not used to interpret this result as normal/abnormal . RADHA (test code = RADHA) Biotin has been reported to cause a negative bias, interpret results relative to patient's use of biotin. Lab Interpretation Abnormal (test code = 35351-6) [facility] METABOLIC PANEL (NA, K, CL, CO2, GLUCOSE, BUN, CREATININE, CA)2021-09-05 16:53:35 Test Item Value Reference Range Interpretation Comments NA (test code = 138 mmol/L 135-145 0563577618) K (test code = 4.8 mmol/L 3.5-5.0 2944679292) CL (test code = 110 mmol/L 98-108 H 1261150830) CO2 TOTAL (test code = 23 mmol/L 23-31 8159523305) AGAP (test code = 2-16 4878979201) BUN (test code = 50 mg/dL 7-23 H 4319783572) GLUCOSE (test code = 106 mg/dL 70-110 3134684181) CREATININE (test code = 3.36 mg/dL 0.60-1.25 H 7284051471) CALCIUM (test code = 8.9 mg/dL 8.6-10.6 1725477319) eGFR (test code = mL/min/1.73m2 5022738374) RADHA (test code = RADHA) Association of [...] tests). 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 No growth AA Previous Culture-Anaerobic See Blood Culture preli minary (test code = 14840-6) Workup for verifi ed result additional was Culture In information. 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 Lab Interpretation Abnormal (test code = 02935-7) [facility] GLUCOSE (AUTOMATED)2021-09-05 13:47:13 Test Item Value Reference Range Interpretation Comments POCT GLU (test code = 9599482298) 116 mg/dL 70-110 H Lab Interpretation (test code = Abnormal 47160-9) [facility] GLUCOSE (AUTOMATED)2021-09-05 02:37:48 Test Item Value Reference Range Interpretation Comments POCT GLU (test code = 7577158773) 238 mg/dL 70-110 H Lab Interpretation (test code = Abnormal 83131-1) [facility] GLUCOSE (AUTOMATED)2021-09-04 23:23:12 Test Item Value Reference Range Interpretation Comments POCT GLU (test code = 8660030834) 211 mg/dL 70-110 H Lab Interpretation (test code = Abnormal 31140-7) [facility]AL[facility]2022-01-25 18:15:57 Test Item Value Reference Range Interpretation Comments Procalcitonin (test 0.11 ng/mL <0.07 H code = 9613947257) RADHA (test code = RADHA) INTERPRETATION OF [...] lung abscess/empyema. For further information please refer to:[email or web address] Lab Interpretation Abnormal (test code = 40727-5) [facility] GLUCOSE (AUTOMATED)2021-09-04 17:52:04 Test Item Value Reference Range Interpretation Comments POCT GLU (test code = 2257003732) 182 mg/dL 70-110 H Lab Interpretation (test code = Abnormal 37968-6) [facility] GLUCOSE (AUTOMATED)2021-09-04 13:47:06 Test Item Value Reference Range Interpretation Comments POCT GLU (test code = 7318055654) 170 mg/dL 70-110 H Lab Interpretation (test code = Abnormal 72599-1) [facility]landTROP[facility] [id number] 12:23:39 Test Item Value Reference Interpretation Comments Range TROPONIN I (test 0.046 ng/mL See_Comment H [Automated code = 9554979016) message] The system which generated this result [...] biotin. Lab Interpretation Abnormal (test code = 04601-2) [facility]N-TERMIN[facility] [id number] 12:20:23 Test Item Value Reference Range Interpretation Comments NT-proBNP (test code 6500 pg/mL See_Comment H [Autom ated = 1936534936) message] The system which generated this result transmitted reference range : <=450. The reference range was not used to interpret this result as normal/abnormal . RADHA (test code = RADHA) Biotin has been reported to cause a negative bias, interpret results relative to patient's use of biotin. Lab Interpretation Abnormal (test code = 73655-4) [facility] (NA, K, CL, CO2, GLUCOSE, BUN, CREATININE, CA)2021-09-04 12:12:37 Test Item Value Reference Range Interpretation Comments NA (test code = 137 mmol/L 135-145 5616505278) K (test code = 5.0 mmol/L 3.5-5.0 8514917548) CL (test code = 109 mmol/L 98-108 H 6380401900) CO2 TOTAL (test code = 21 mmol/L 23-31 L 3180534199) AGAP (test code = 2-16 6367296584) BUN (test code = 47 mg/dL 7-23 H 8924385832) GLUCOSE (test code = 192 mg/dL 70-110 H 0473421049) CREATININE (test code = 3.30 mg/dL 0.60-1.25 H 8373588398) CALCIUM (test code = 8.6 mg/dL 8.6-10.6 6146710048) eGFR (test code = mL/min/1.73m2 9610032531) RADHA (test code = RADHA) Association of [...] tests). Lab Interpretation Abnormal (test code = 51736-0) [facility] WITH [id number] 12:02:38 Test Item Value Reference Range Interpretation Comments WBC (test code = See_Comment H [Automated 1490-2) message] The system which generated this result transmit jose reference range : 4.20 - 10.70 10*3/?L. The reference range was not used to interpret this result as normal/abnormal . RBC (test code = See_Comment L [Automated 439-8) message] The system which generated this result [...] (test code = 53.5 fL 38.5-51.6 H 60609-0) RDW-CV (test code = 15.4 % 12.1-15.4 788-0) PLT (test code = See_Comment [Automated 777-3) message] The system which generated this result transmit jose reference range : 150 - 328 10*3/ ?L. The reference range was not u sed to interpret th is result as normal/abnormal . MPV (test code = 10.5 fL 9.8-13.0 56254-5) NRBC/100 WBC (test See_Comment [Automat ed code = 1134783207) message] The system which generated this result transmit jose reference range : 0.0 - 10.0 /100 WBCs. The reference range was not used to interpret this result as normal/abnormal . NRBC x10^3 (test code <0.01 See_Comment [Auto mated = 3326177481) message] The system which generated this result transmit jose reference range : 10*3/?L. The reference range was not used to interpret this result as normal/abnormal . GRAN MAT (NEUT) % 90.0 % (test code = 770-8) IMM GRAN % (test code 0.60 % = 4740057071) LYMPH % (test code = 5.0 % 736-9) MONO % (test code = 4.3 % 5905-5) EOS % (test code = 0.0 % 713-8) BASO % (test code = 0.1 % 706-2) GRAN MAT x10^3(ANC) 10.53 10*3/uL 1.99-6.95 H (test code = 9206395112) IMM GRAN x10^3 (test 0.07 10*3/uL 0.00-0.06 H code = 9221109817) LYMPH x10^3 (test code 0.58 10*3/uL 1.09-3.23 L = 731-0) MONO x10^3 (test code 0.50 10*3/uL 0.36-1.02 = 742-7) EOS x10^3 (test code = <0.03 0.06-0.53 L 711-2) BASO x10^3 (test code <0.03 0.01-0.09 = 704-7) Lab Interpretation Abnormal (test code = 89651-2) [facility] GLUCOSE (AUTOMATED)2021-09-04 11:55:48 Test Item Value Reference Range Interpretation Comments POCT GLU (test code = 2436145055) 189 mg/dL 70-110 H Lab Interpretation (test code = Abnormal 59770-3) [facility] GLUCOSE (AUTOMATED)2021-09-04 01:41:45 Test Item Value Reference Range Interpretation Comments POCT GLU (test code = 2417832224) 166 mg/dL 70-110 H Lab Interpretation (test code = Abnormal 59464-5) [facility]land[facility]ITAMIN B12, [id number] 23:08:05 Test Item Value Reference Range Interpretation Comments VIT B12 (test code = >1000 240-930 H 9162432834) RADHA (test code = RADHA) Biotin has been reported to cause a positive bias, interpret results relative to patient's use of biotin. Lab Interpretation (test Abnormal code = 94042-1) [facility] GLUCOSE (AUTOMATED)2021-09-03 22:54:51 Test Item Value Reference Range Interpretation Comments POCT GLU (test code = 7956855397) 229 mg/dL 70-110 H Lab Interpretation (test code = Abnormal 25203-4) [facility] [id number] 17:34:51 Test Item Value Reference Range Interpretation Comments FREE T3 (test code = 0495342393) 2.41 pg/mL 2.77-5.27 L Lab Interpretation (test code = Abnormal 13991-0) [facility] GLUCOSE (AUTOMATED)2021-09-03 17:31:09 Test Item Value Reference Range Interpretation Comments POCT GLU (test code = 1989517108) 246 mg/dL 70-110 H Lab Interpretation (test code = Abnormal 15873-5) [facility] [id number] 17:00:47 Test Item Value Reference Range Interpretation Comments FREE T4 (test code = See_Comment [Autom ated message] 7105526972) The system [employer] generated this result transmitted ref erence range: 0.78 - 2 .20 ng/dL:. The ref erence range was not u sed to interpret this result as normal/abnor mal. Lab Interpretation (test Normal code = 91304-5) [facility]2021-[facility]-03 14:17:24 Test Item Value Reference Range Interpretation Comments POCT GLU (test code = 5383401084) 232 mg/dL 70-110 H Lab Interpretation (test code = Abnormal 95195-7) [facility]landTROPONIN [id number] 11:01:15 Test Item Value Reference Interpretation Comments Range TROPONIN I (test 0.035 ng/mL See_Comment H [Automated code = 4958636607) message] The system which generated this result [...] biotin. Lab Interpretation Abnormal (test code = 21761-1) [facility]landN-TERMINAL [id number] 10:58:19 Test Item Value Reference Range Interpretation Comments NT-proBNP (test code 3920 pg/mL See_Comment H [Autom ated = 1863271832) message] The system which generated this result transmitted reference range : <=450. The reference range was not used to interpret this result as normal/abnormal . RADHA (test code = RADHA) Biotin has been reported to cause a negative bias, interpret results relative to patient's use of biotin. Lab Interpretation Abnormal (test code = 11172-7) [facility] PearlandMagnesium [id number] 10:50:15 Test Item Value Reference Range Interpretation Comments MAGNESIUM (test code = 2964695081) 2.1 mg/dL 1.7-2.4 Lab Interpretation (test code = Normal 64409-1) [facility]landBasi Metabolic Panel (NA, K, CL, CO2, GLUCOSE, BUN, CREATININE, CA)2021-09-03 10:49:54 Test Item Value Reference Range Interpretation Comments NA (test code = 140 mmol/L 135-145 2788770729) K (test code = 5.0 mmol/L 3.5-5.0 6431105776) CL (test code = 112 mmol/L 98-108 H 3025017311) CO2 TOTAL (test code = 21 mmol/L 23-31 L 3527116736) AGAP (test code = 2-16 3563350218) BUN (test code = 41 mg/dL 7-23 H 6705561727) GLUCOSE (test code = 205 mg/dL 70-110 H 5559057353) CREATININE (test code = 2.95 mg/dL 0.60-1.25 H 1688261273) CALCIUM (test code = 8.6 mg/dL 8.6-10.6 8424792813) eGFR (test code = mL/min/1.73m2 3030120355) RADHA (test code = RADHA) Association of [...] tests). Lab Interpretation Abnormal (test code = 30409-9) [facility]landURIC [id number] 10:49:54 Test Item Value Reference Range Interpretation Comments URIC ACID (test code = 6804942505) 5.1 mg/dL 3.6-8.0 Lab Interpretation (test code = Normal 82803-9) [facility]landCB with [id number] 10:06:10 Test Item Value Reference Range Interpretation [...] (test code = 53.0 fL 38.5-51.6 H 04112-5) RDW-CV (test code = 15.2 % 12.1-15.4 788-0) PLT (test code = See_Comment [Automated 777-3) message] The sy stem which generated this result transmitted reference range : 150 - 328 10*3/ ?L. The reference r hilary was not used to interpret this result as normal/abnormal . MPV (test code = 10.1 fL 9.8-13.0 63111-3) NRBC/100 WBC (test See_Comment [Automat ed code = 3844124870) message] The system which generated this result transmitted reference range : 0.0 - 10.0 /100 WBCs. The refer ence range was not u sed to interpret th is result as normal/abnormal . NRBC x10^3 (test code <0.01 See_Comment [Auto mated = 2546594088) message] The s ystem which generated this result transmitted reference range : 10*3/?L. The reference range was not used to interpret this result as normal/abnormal . GRAN MAT (NEUT) % 94.4 % (test code = 770-8) IMM GRAN % (test code 0.50 % = 9425081066) LYMPH % (test code = 4.2 % 736-9) MONO % (test code = 0.9 % 5905-5) EOS % (test code = 0.0 % 713-8) BASO % (test code = 0.0 % 706-2) GRAN MAT x10^3(ANC) 5.20 10*3/uL 1.99-6.95 (test code = 7749278839) IMM GRAN x10^3 (test 0.03 10*3/uL 0.00-0.06 code = 0899193724) LYMPH x10^3 (test code 0.23 10*3/uL 1.09-3.23 L = 731-0) MONO x10^3 (test code 0.05 10*3/uL 0.36-1.02 L = 742-7) EOS x10^3 (test code = <0.03 0.06-0.53 L 711-2) BASO x10^3 (test code <0.03 0.01-0.09 = 704-7) Lab Interpretation Abnormal (test code = 34094-5) [facility]landUR[facility] [id number] 07:55:03 Test Item Value Reference Range Interpretation Comments URIC ACID (test code = 7865030893) 5.3 mg/dL 3.6-8.0 Lab Interpretation (test code = Normal 26546-5) [facility]landPROCALCITONIN2022-01-24 07:43:46 Test Item Value Reference Range Interpretation Comments Procalcitonin (test 0.12 ng/mL <0.07 H code = 4482764298) RADHA (test code = RADHA) INTERPRETATION OF [...] lung abscess/empyema. For further information please refer to:[email or web address] Lab Interpretation Abnormal (test code = 88256-4) [facility]landTROPONIN [id number] 03:12:06 Test Item Value Reference Interpretation Comments Range TROPONIN I (test 0.029 ng/mL See_Comment [Automated code = 2945403879) message] The system which generated this result [...] biotin. Lab Interpretation Normal (test code = 09767-2) [facility] PearlandPhosphorus [id number] 02:59:26 Test Item Value Reference Range Interpretation Comments PHOSPHORUS (test code = 2730573040) 3.5 mg/dL 2.5-5.0 Lab Interpretation (test code = Normal 50450-3) [facility]landFERRITIN [id number] 02:43:44 Test Item Value Reference Range Interpretation Comments FERRITIN (test code = 132.0 ng/mL 18.0-464.0 1785359186) RADHA (test code = RADHA) Biotin has been reported to cause a negative bias, interpret results relative to patient's use of biotin. Lab Interpretation (test Normal code = 34026-1) [facility]landGLYCOSYLATED HEMOGLOBIN (A1C)2021-09-03 02:22:16 Test Item Value Reference Range Interpretation Comments HGB A1C (test code = 6.3 % 4.0-5.7 H 4548-4) RADHA (test code = RADHA) Reference RangesNormal: <5.7%Prediabetes: 5.7 - 6.4%Diabetes: > 6.5% Lab Interpretation (test Abnormal code = 25740-1) [facility] PearlandIRON [id number] 02:15:44 Test Item Value Reference Range Interpretation Comments IRON (test code = 8813362400) 21 ug/dL 50-160 L TIBC (test code = 8337179952) 294 ug/dL 250-410 % FE SAT (test code = 9464549439) 7 % 20-50 L Lab Interpretation (test code = Abnormal 65797-2) [facility] PearlandTHYROID STIMULATING [id number] 01:17:43 Test Item Value Reference Range Interpretation Comments TSH (test code = See_Comment H [Automated message] 7884905272) The system [employer] generated this result transmitted ref erence range: 0.45 - 4 .70 mIU/L. The refe rence range was not u sed to interpret this result as normal/abnor mal. Lab Interpretation (test Abnormal code = 88464-4) [facility]landPO[facility])2021-09-02 22:51:11 Test Item Value Reference Range Interpretation Comments POCT GLU (test code = 5732478397) 169 mg/dL 70-110 H Lab Interpretation (test code = Abnormal 85987-5) [facility] GLUCOSE (AUTOMATED)2021-09-02 21:35:04 Test Item Value Reference Range Interpretation Comments POCT GLU (test code = 8866863137) 176 mg/dL 70-110 H Lab Interpretation (test code = Abnormal 75441-8) [facility]landAc[facility] Care Arterial Blood Gas.2021-09-02 16:59:20 Test Item Value Reference Range Interpretation Comments PH (test code = 2) 7.35-7.45 L PCO2 (test code = See_Comment [Automate d message] 8690295176) The system [employer] generated this result transmitted ref erence range: 35 - 45 mmHg. The reference r hilary was not used to interpret this result as normal/abnor mal. PO2 (test code = See_Comment L [Automated message] 2903390747) The system [employer] generated this result transmitted ref erence range: 80 - 100 mmHg. The reference r hilary was not used to interpret this result as normal/abnor mal. HCO3 (test code = See_Comment L [Automate d message] 6306628027) The system [employer] generated this result transmitted ref erence range: 22 - 26 mEq/L. The reference r hilary was not used to interpret this result as normal/abnor mal. BE (test code = See_Comment L [Automated message] 0916817676) The system [employer] generated this result transmitted ref erence range: -3.0 - 3 .0 mEq/L. The refe rence range was not u sed to interpret this result as normal/abnor mal. Lab Interpretation (test Abnormal code = 17883-2) [facility]landTROPONIN [id number] 16:13:32 Test Item Value Reference Interpretation Comments Range TROPONIN I (test 0.042 ng/mL See_Comment H [Automated code = 0748439304) message] The system which generated this result [...] biotin. Lab Interpretation Abnormal (test code = 56966-0) [facility]landN-TERMINAL [id number] 16:10:31 Test Item Value Reference Range Interpretation Comments NT-proBNP (test code 3090 pg/mL See_Comment H [Autom ated = 5409021436) message] The system which generated this result transmitted reference range : <=450. The reference range was not used to interpret this result as normal/abnormal . RADHA (test code = RADHA) Biotin has been reported to cause a negative bias, interpret results relative to patient's use of biotin. Lab Interpretation Abnormal (test code = 63664-9) [facility] METABOLIC PANEL (10704)2021-09-02 16:02:09 Test Item Value Reference Range Interpretation Comments NA (test code = 141 mmol/L 135-145 8255147419) K (test code = 5.3 mmol/L 3.5-5.0 H 3844330003) CL (test code = 113 mmol/L 98-108 H 1930991789) CO2 TOTAL (test code = 21 mmol/L 23-31 L 0445172864) AGAP (test code = 2-16 0243813313) BUN (test code = 37 mg/dL 7-23 H 2665782405) GLUCOSE (test code = 167 mg/dL 70-110 H 7161938561) CREATININE (test code = 2.91 mg/dL 0.60-1.25 H 2282276936) TOTAL BILI (test code = 0.5 mg/dL 0.1-1.2 9158521559) CALCIUM (test code = 8.6 mg/dL 8.6-10.6 5829862632) T PROTEIN (test code = 6.4 g/dL 6.3-8.2 6701156072) ALBUMIN (test code = 3.6 g/dL 3.5-5.0 9777214693) ALK PHOS (test code = 128 U/L 34-122 H 7032516223) ALTv (test code = 21 U/L 5-50 1742-6) AST(SGOT) (test code = 17 U/L 13-40 9929025614) eGFR (test code = mL/min/1.73m2 4373806047) RADHA (test code = RADHA) Association of [...] tests). Lab Interpretation Abnormal (test code = 51607-5) [facility] PearlandLIPASE2022-01-23 16:01:29 Test Item Value Reference Range Interpretation Comments LIPASE (test code = 5134826172) 102 U/L 0-220 Lab Interpretation (test code = Normal 77594-5) [facility] [id number] 15:59:08 Test Item Value Reference Range Interpretation Comments APTT Patient (test See_Comment [Automat ed code = 3173-2) message] The system which generated this result transmitted reference range : 23 - 38 Seconds . The reference range was not used to interpr et this result as normal/abnormal . RADHA (test code = RADHA) The [facility] patient population mean normal value for aPTT is 30 seconds. Lab Interpretation Normal (test code = 90109-8) [facility] / [id number] 15:56:48 Test Item Value Reference Range Interpretation [...] tions. Lab Interpretation (test Normal code = 91098-3) [facility] WITH [id number] 15:48:46 Test Item Value Reference Range Interpretation [...] (test code = 54.7 fL 38.5-51.6 H 39061-8) RDW-CV (test code = 15.5 % 12.1-15.4 H 788-0) PLT (test code = See_Comment [Automated 777-3) message] The sy stem which generated this result transmitted reference range : 150 - 328 10*3/ ?L. The reference r hilary was not used to interpret this result as normal/abnormal . MPV (test code = 9.8 fL 9.8-13.0 23265-6) NRBC/100 WBC (test See_Comment [Automat ed code = 1017537644) message] The system which generated this result transmitted reference range : 0.0 - 10.0 /100 WBCs. The refer ence range was not u sed to interpret th is result as normal/abnormal . NRBC x10^3 (test code <0.01 See_Comment [Auto mated = [id number]) message] The s ystem which generated this result transmitted reference range : 10*3/?L. The reference range was not used to interpret this result as normal/abnormal . GRAN MAT (NEUT) % 76.7 % (test code = 770-8) IMM GRAN % (test code 0.40 % = 1767019522) LYMPH % (test code = 14.6 % 736-9) MONO % (test code = 6.4 % 5905-5) EOS % (test code = 1.5 % 713-8) BASO % (test code = 0.4 % 706-2) GRAN MAT x10^3(ANC) 6.25 10*3/uL 1.99-6.95 (test code = 7446809125) IMM GRAN x10^3 (test 0.03 10*3/uL 0.00-0.06 code = 5283433694) LYMPH x10^3 (test code 1.19 10*3/uL 1.09-3.23 = 731-0) MONO x10^3 (test code 0.52 10*3/uL 0.36-1.02 = 742-7) EOS x10^3 (test code = 0.12 10*3/uL 0.06-0.53 711-2) BASO x10^3 (test code 0.03 10*3/uL 0.01-0.09 = 704-7) Lab Interpretation Abnormal (test code = 53158-4) [facility]"
[2022-12-05 16:56] LABS: Absolute Lymphocytes (CBC) 1.6 K/uL (0.7-4.9); Hematocrit 36.2 % (39.6-49.0); Lymphocytes % 13.8 % (15.3-44.8); MCV 94.4 fL (80-100); MPV 7.7 fL (7.6-11.3); RBC Red Blood Cell Count 3.84 M/uL (4.33-5.43)
[2022-12-05 17:17] LABS: Albumin 3.1 g/dL (3.4-5.0); Bilirubin Direct 0.2 mg/dL (0-0.2); Bilirubin Total 0.6 mg/dL (0.2-1.0); Magnesium 1.8 mg/dL (1.6-2.4); Protein, Total 8.5 g/dL (6.4-8.2); Troponin High Sensitivity 40.5 pg/mL (<58.9)
--- NOTE | 2022-12-05 17:37 | RAD REPORT ---
EXAM DESCRIPTION: RADChest Single View12/05/2022 5:08 pm CLINICAL HISTORY: Cough;Dyspnea COMPARISON: Chest Single View dated 10/26/2022; Chest Single View dated 09/05/2022; Chest Single View dated 09/03/2022; Chest Single View dated 07/18/2022 TECHNIQUE: Portable AP view of the chest. FINDINGS: Unchanged position of right IJ dialysis catheter. The left retrocardiac opacity with possi ble small effusion is partially improved. No pneumothorax or effusion. The cardiomediastinal contours are unremarkable. IMPRESSION: Partially improved left retrocardiac opacity with possible small effusion
--- NOTE | 2022-12-05 17:57 | EDPHYS ---
Physician Documentation [facility] Name: Frank López Age: 77 yrs Sex: Male : 1945 Arrival Date: 12/05/2022 Time: 16:01 Bed 6 Private MD: ED Physician Paulo Farah HPI: 12/05 17:13 This 77 yrs old Male presents to ER via EMS with complaints of shortness of breath. ms3 17:13 77-year-old male presents via [facility] for cough x3 days, fever. Patient states he ms3 has a history of pneumonia. EMS states patient's oxygen saturation was 99% on room air, blood pressure 120/60, heart rate 110. Patient denies pain at this time. Patient denies nausea, vomiting, diarrhea.. Historical: - Allergies: 16:08 Codeine; mb9 16:08 Sulfa (Sulfonamide Antibiotics); mb9 - PMHx: 16:08 Atrial fibrillation; Congestive heart failure; Diabetes - NIDDM; COPD; High mb9 Cholesterol; Hypertension; Dialysis- T//FRI; - PSHx: 16:08 Nephrectomy; mb9 - Immunization history:: Adult Immunizations not up to date. - Social history:: Smoking status: Patient/guardian denies using tobacco. ROS: 17:13 Constitutional: Negative for fever, and chills. Neck: Negative for injury, pain, and ms3 swelling, Cardiovascular: Negative for chest pain, and palpitations. Abdomen/GI: Negative for abdominal pain, nausea, vomiting, diarrhea, and constipation. 17:13 Respiratory: Positive for cough, shortness of breath. 17:13 All other systems are negative. Exam: 17:13 Constitutional: This is a well developed, well nourished patient who is awake, alert, ms3 and in no acute distress. Head/Face: Normocephalic, atraumatic. Neck: Trachea midline, no cervical lymphadenopathy. Supple, full range of motion without nuchal rigidity, or vertebral point tenderness. No Meningismus. Chest/axilla: Normal chest wall appearance and motion. Nontender with no deformity. Cardiovascular: Regular rate and rhythm with a normal S1 and S2. No gallops, murmurs, or rubs. Normal PMI, no JVD. No pulse deficits. Respiratory: Lungs have equal breath sounds bilaterally, clear to auscultation and percussion. No rales, rhonchi or wheezes noted. No increased work of breathing, no retractions or nasal flaring. Abdomen/GI: Soft, non-tender, with normal bowel sounds. No distension or tympany. No guarding or rebound. No evidence of tenderness throughout. Skin: Warm, dry with normal turgor. Normal color with no rashes, no lesions, and no evidence of cellulitis. MS/ Extremity: Pulses equal, no cyanosis. Neurovascular intact. Full, normal range of motion. 17:15 ECG was reviewed by the Attending Physician. ms3 Vital Signs: 16:06 BP 120 / 60; Pulse 110; Resp 18; Temp 98.1; Pulse Ox 99% on R/A; Weight 83.6 kg; Height mb9 5 ft. 9 in. ; 17:35 BP 142 / 76; Pulse 104; Pulse Ox 97% on R/A; ap3 16:06 Body Mass Index 27.22 (83.60 kg, 175.26 cm) mb9 MDM: 16:06 Patient medically screened. ms3 17:13 Differential diagnosis: CHF exacerbation, Myocardial Infarction pneumonia. ms3 18:02 Antibiotic administration: The patient is discharged and will get outpatient ms3 antibiotics, Doxycycline. Data reviewed: vital signs, nurses notes, lab test result(s), radiologic studies, and as a result, I will discharge patient. Consideration of Admission/Observation Escalation of care including admission/observation considered. Discussed observation with patient and patient declines. Discussed return precautions with patient to include shortness of breath, fevers, worsening symptoms, or any other concerns.. Independent interpretation of the following test(s) in the Emergency Department EKG: See my EKG interpretation above Rhythm Strip Interpretation Rate: 99BPM Rhythm: regular. Historians other than the Patient: EMS: [facility]. Counseling: I had a detailed discussion with the patient and/or guardian regarding: the historical points, exam findings, and any diagnostic results supporting the discharge/admit diagnosis, lab results, radiology results, the need for outpatient follow up, to return to the emergency department if symptoms worsen or persist or if there are any questions or concerns that arise at home. ED course: Discussed labs, chest x-ray with patient. Patient to follow-up with his primary care physician in 1 to 2 days. Patient understands and agrees with plan. All questions were answered. Return precautions discussed include worsening symptoms, or any other concerns. 12/05 16:06 Order name: Basic Metabolic Panel; Complete Time: 17:20 ms3 12/05 16:06 Order name: CBC with Diff; Complete Time: 17:13 ms3 12/05 16:06 Order name: LFT's; Complete Time: 17:20 ms3 12/05 16:06 Order name: Magnesium; Complete Time: 17:20 ms3 12/05 16:06 Order name: NT PRO-BNP; Complete Time: 17:20 ms3 12/05 16:06 Order name: Troponin HS; Complete Time: 17:20 ms3 12/05 16:06 Order name: XRAY Chest (1 view); Complete Time: 17:43 ms3 12/05 16:06 Order name: EKG; Complete Time: 16:07 ms3 12/05 16:06 Order name: Cardiac monitoring; Complete Time: 17:27 ms3 12/05 16:06 Order name: EKG - Nurse/Tech; Complete Time: 17:27 ms3 12/05 16:06 Order name: IV Saline Lock; Complete Time: 17:27 ms3 12/05 16:06 Order name: Labs collected and sent; Complete Time: 17:27 ms3 12/05 16:06 Order name: O2 Per Protocol; Complete Time: 16:24 ms3 12/05 16:06 Order name: O2 Sat Monitoring; Complete Time: 16:24 ms3 EC:15 Rate is 102 beats/min. Rhythm is regular. QRS [place] is Normal. MI interval is normal. ms3 QRS interval is normal. QT interval is normal. Clinical impression: Sinus tachycardia. Interpreted by me. Reviewed by me. Administered Medications: No medications were administered Disposition Summary: 12/05/22 17:57 Discharge Ordered Location: Home ms3 Condition: Stable ms3 Diagnosis - Other pneumonia, unspecified organism ms3 - Cough ms3 Followup: ms3 - With: Private Physician - When: 1 - 2 days - Reason: Recheck today's complaints Discharge Instructions: - Discharge Summary Sheet ms3 - Cough, Adult ms3 Forms: - Medication Reconciliation Form ms3 - Thank You Letter ms3 - Antibiotic Education ms3 - Prescription Opioid Use ms3 Prescriptions: - Doxycycline Hyclate 100 mg Oral Tablet - take 1 tablet by ORAL route every 12 hours; 20 tablet; Refills: 0, Product ms3 Selection Permitted Signatures: Dispatcher [employer] Paulo Grey DO DO ms3 Linda Ramos, RN RN mb9
--- NOTE | 2022-12-05 17:57 | ER ---
Nurse's Notes [facility] Name: Frank López Age: 77 yrs Sex: Male : 1945 Arrival Date: 12/05/2022 Time: 16:01 Bed 6 Private MD: Diagnosis: Other pneumonia, unspecified organism;Cough Presentation: 12/05 16:06 Chief complaint: EMS states: "pt has fever and coughing for 3 days. Pt states when this mb9 happens, it turns into pneumonia. Pt also states he feels SOB". Coronavirus screen: Vaccine status: Patient reports being unvaccinated. Ebola Screen: No symptoms or risks identified at this time. Initial Sepsis Screen: Does the patient meet any 2 criteria? HR > 90 bpm. Yes Does the patient have a suspected source of infection? No. Patient's initial sepsis screen is negative. Risk Assessment: Do you want to hurt yourself or someone else? Patient reports no desire to harm self or others. Onset of symptoms was December 02, 2022. 16:06 Method Of Arrival: EMS: [facility] mb9 16:06 Acuity: GAVI 3 mb9 Triage Assessment: 16:09 General: Appears uncomfortable, Behavior is cooperative. Pain: Denies pain. Neuro: mb9 Level of Consciousness is awake, alert, obeys commands, Oriented to person, place, time, situation, Appropriate for age. Cardiovascular: Patient's skin is warm and dry. Rhythm is sinus tachycardia. Respiratory: Reports shortness of breath cough that is Airway is patent Respiratory effort is even, unlabored, Respiratory pattern is regular, symmetrical, Breath sounds with crackles bilaterally. GI: Patient currently denies diarrhea, nausea. Derm: Skin is pink, warm \\T\\ dry. Musculoskeletal: Range of motion: intact in all extremities. Historical: - Allergies: 16:08 Codeine; mb9 16:08 Sulfa (Sulfonamide Antibiotics); mb9 - PMHx: 16:08 Atrial fibrillation; Congestive heart failure; Diabetes - NIDDM; COPD; High mb9 Cholesterol; Hypertension; Dialysis- T//FRI; - PSHx: 16:08 Nephrectomy; mb9 - Immunization history:: Adult Immunizations not up to date. - Social history:: Smoking status: Patient/guardian denies using tobacco. Screenin:08 [facility] ED Fall Risk Assessment (Adult) History of falling in the last 3 months, os including since admission No falls in past 3 months (0 pts) Confusion or Disorientation No (0 pts) Intoxicated or Sedated No (0 pts) Impaired Gait Yes (1 pt) Mobility Assist Device Used Yes (1 pt) Altered Elimination No (0 pt) Score/Fall Risk Level 3 or more points = High Risk Oriented to surroundings, Maintained a safe environment, Educated pt \\T\\ family on fall prevention, incl call for assistance when getting out of bed, Assessed \\T\\ reinforced patient's understanding of fall precautions. Abuse screen: Denies threats or abuse. Nutritional screening: No deficits noted. Tuberculosis screening: No symptoms or risk factors identified. Assessment: 18:09 Reassessment: No changes from previously documented assessment. General: Appears. os Neuro: No deficits noted. Cardiovascular: No deficits noted. Respiratory: Reports shortness of breath on exertion cough that is productive, labored breathing. Vital Signs: 16:06 BP 120 / 60; Pulse 110; Resp 18; Temp 98.1; Pulse Ox 99% on R/A; Weight 83.6 kg; Height mb9 5 ft. 9 in. ; 17:35 BP 142 / 76; Pulse 104; Pulse Ox 97% on R/A; ap3 16:06 Body Mass Index 27.22 (83.60 kg, 175.26 cm) mb9 ED Course: 16:05 Patient arrived in ED. mb9 16:05 Paulo Farah DO is Attending Physician. ms3 16:06 Arm band placed on. mb9 16:08 Triage completed. mb9 17:10 XRAY Chest (1 view) In Process Unspecified. EDMS 17:49 Jin Ruiz, RN is Primary Nurse. os 18:10 No provider procedures requiring assistance completed. Inserted saline lock: 20 gauge os in left antecubital area, using aseptic technique. 18:11 Patient has correct armband on for positive identification. Fall risk band placed. Bed os in low position. Call light in reach. Side rails up X 1. Side rails up X2. Administered Medications: No medications were administered Medication: 16:09 VIS not applicable for this client. mb9 Outcome: 17:57 Discharge ordered by . ms3 18:30 Patient left the ED. ss Signatures: Dispatcher [facility] Andressa Dey RN RN ss Siena Guajardo, RN RN ap3 Paulo Farah, DO APONTE ms3 Richard, Linda Saldana, RN RN mb9 Jin Ruiz, RN RN os
[2022-12-05 18:57] VITALS: TEMP 98.1
[2022-12-05 19:12] VITALS: BP 142/76; O2SAT 97
--- NOTE | 2022-12-06 07:00 | EKG ---
Test Date: 2022-12-05 Test Time: 17:05:58 Engagement Specialist: AYDIN MEASUREMENT RESULTS: Intervals: Rate: 102 ND: QRSD: 42 QT: 308 QTc: 401 [place]: P: ND: QRS: 90 T: 90 INTERPRETIVE STATEMENTS: Poor data quality, interpretation may be adversely affected Atrial fibrillation with rapid ventricular response Rightward axis Pulmonary disease pattern Nonspecific T wave abnormality Abnormal ECG Compared to ECG 10/26/2022 19:22:58 Right-axis deviation now present T-wave abnormality now present Sinus rhythm no longer present Sinus arrhythmia no longer present Myocardial infarct finding no longer present Electronically Signed On 12-06-22 06:59:44 CDT by Humble Wlil
--- NOTE | 2022-12-07 15:24 | EKG ---
Test Date: 2022-12-05 Test Time: 17:07:45 Construction Driller: AYDIN MEASUREMENT RESULTS: Intervals: Rate: 102 NC: 182 QRSD: 92 QT: 348 QTc: 453 [place]: P: NC: 182 QRS: 43 T: 37 INTERPRETIVE STATEMENTS: Sinus tachycardia Otherwise normal ECG Compared to ECG 12/05/2022 17:05:58 Atrial fibrillation no longer present Right-axis deviation no longer present T-wave abnormality no longer present Electronically Signed On 12-07-22 15:23:51 CDT by Deepak Goodrich
== END 2022-12-05 18:30 | disposition home or self-care (01) ==
LOC: ER 16:01
DX: J18.8 Other pneumonia, unspecified organism (principal); Z20.822 Contact with and (suspected) exposure to COVID-19; I10 Essential (primary) hypertension; I50.9 Heart failure, unspecified; Z99.2 Dependence on renal dialysis; Z88.2 Allergy status to sulfonamides; Z88.5 Allergy status to narcotic agent
CPT/HCPCS: 36415; 71045; 80048; 80076; 83735; 83880; 84484; 85025; 93005

== ENCOUNTER 2023-03-09 04:35 | Emergency (ER) | payer OTHER ==
--- OUTSIDE RECORDS SUMMARY | 2023-03-09 04:42 | XMS REPORT | Continuity of Care Document ---
:1945 Author Organization [facility] t Address [address] [place] [address]. [address] [place] [address] Care Team Providers Name Role Phone [facility] Primary Care Physician Unavailable MARGIE MORRIS Attending Clinician Unavailable Doctor Unassigned, [place] Attending Clinician Unavailable ANGIE MARTINEZ Attending Clinician Unavailable Hemanth Redmond RN Attending Clinician Unavailable JERE WOODWARD Attending Clinician Unavailable Quinn Ibarra MD Attending Clinician Jere Woodward MD Attending Clinician ANGIE MARTINEZ Admitting Clinician Unavailable JERE WOODWARD Admitting Clinician Unavailable Jere Woodward MD Admitting Clinician Payers Payer Name Policy Type Policy Number Effective Date Expiration Date S lj MEDICARE PART A [id number] 2005 \\T\\ B 00:00:00 [id number] 1959 00:00:00 WPS-VACAA C1 [id number] [facility] WPS-VACAA C1 [id number] [facility] Problems Condition Condition Condition Status [...] 1-25 it y of on on 00:00: [place] [facility] Obesity Obesity Disease Active Univers (BMI (BMI 1-24 ity of 30-39.9) 30-39.9) 00:00: [place] [facility] Coronary Coronary Disease Active Unive rs artery artery 1-24 ity of disease disease 00:00: [place] involving involving 00 Medi unruly [place] Branch coronary coronary artery of artery of [place] heart heart without without angina angina pectoris pectoris Atrial Atrial Disease Active Univers flutter flutter 1-24 ity of 00:00: [place] [facility] PAD PAD Disease Active Univers (periphera (periphera 1-24 it y of l artery l artery 00:00: [place] disease) disease) 00 Medica l Branch Chronic Chronic Disease Active Univers diastolic diastolic 1-24 ity of congestive congestive 00:[place] heart heart 00 Medical failure failure Branch Primary Primary Disease Active Univers hypertensi hypertensi 1-24 it y of on on 00:00: [place] [facility] Other Other Disease Active Univers hyperlipid hyperlipid 1-24 it y of emia emia 00:00: [place] [facility] JAZZY (acute JAZZY (acute Disease Active U nivers kidney kidney 1-24 ity of injury) injury) 00:00: [place] [facility] Toe ulcer, Toe ulcer, Disease Active U nivers right, right, 2-20 ity of limited to limited to [place] breakdown breakdown 00 Medi unruly of skin of skin Branch COPD COPD Disease Active Univers exacerbati exacerbati 2-16 it y of on on 00:00: [place] [id number] Medical Branch COPD COPD Disease Active Univers [...] vers foot foot 1-28 ity of 00:00: [place] [facility] Respirator Respirator Disease Active 2016-08 U nivers y failure, y failure, -26 it y of acute acute 00:00: [address] [id number] MRSA Problem Active Common (methicill Spirit in - [facility] resistant staph [facility] aureus) Medical culture Center positive [id number] OAB Problem Active Common (overactiv Spirit e bladder) - [facility] [id number] Urge Problem Active Common incontinen Spirit ce - [facility] [id number] 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 [facility] [id number] Lower Problem Active Common urinary Spirit tract - [facility] symptoms (LUTS) [facility] [id number] 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 - [facility] bladder, unspecifie [facility] Allergies, Adverse Reactions, Alerts Allergy [...] Quantity Comments Source Exposure to Not sure [facility] SARS-CoV-2 [place] [facility] (event) [place] Sex Assigned At [facility] marcio - [facility] History of [facility] - Tobacco Use [facility] Alcohol intake 2021-09-07 2021-09-07 Current University of 00:00:00 00:00:00 non-drinker of [facility] alcohol (finding) Branch Tobacco use and 2017-09-25 2017-09-25 Smokeless tobacco Un iversity of exposure 00:00:00 00:00:00 non-user [facility] Tobacco Comment 2017-09-25 2017-09-25 Quit 1 month ago Uni versity of 00:00:00 00:00:00 [facility] Smoking Status Start Date Stop Date Source Ex-smoker 2017-09-25 00:00:00 2017-09-25 00:00:00 Universi ty of [facility] Medications Ordered Filled Start Stop Current Ordering [...] ADC PROVIDER aspirin 81 0 2021- No [id number] 81mg Take 1 Univers mg EC 09-12 tablet by ity of tablet 00:00: 05:59 mouth [place] 00 :00 daily for Medical 30 days. Branch aspirin 81 0 2021- No [id number] 81mg Take 1 Univers mg EC 09-12 [...] Branch FINASTERIDE 2021-0 Yes 5mg 5 mg. Meet You , BULK, 2- ity of MISC 18:18: [...] Branch FINASTERIDE 2021-0 Yes 5mg 5 mg. [facility] , BULK, 2- ity of MISC 18:18: [...] paroxysmal atrial fibrillati on ferrous 2021- No [id number] 325mg Take 1 U nivers sulfate 325 09-11 tablet by it y of mg (65 mg 00:00: 05:59 [place] iron) 00 :00 (two) Medical tablet times Branch daily for 30 days. diltiazem 2021- No [id number] 120mg Take 1 Univers 120 mg 24 09-11 capsule by ity of hr capsule 00:00: 05:59 mouth [place] 00 :00 daily for Medical 30 days. [place] apixaban 5 No [id number] 5mg Take 1 Univ ers mg tablet 09-11 tablet by ity of 00:00: 05:59 mouth 2 [place] 00 :00 (two) Medical times Branch daily for 30 days. Indication s: prevention of thromboemb olism in paroxysmal atrial fibrillati on ferrous 2021- No [id number] 325mg Take 1 U nivers sulfate 325 09-11 tablet by it y of mg (65 mg 00:00: 05:59 [place] iron) 00 :00 (two) Medical tablet times Branch daily for 30 days. diltiazem No [id number] 120mg Take 1 Univers 120 mg 24 09-11 capsule by ity of hr capsule 00:00: 05:59 mouth [place] 00 :00 daily for Medical 30 days. [place] linezolid No [id number] 600mg Take 1 Univers 600 mg 09-11 tablet by ity of tablet 00:00: 05:59 mouth [place] 00 :00 every 12 Medical (twelve) Branch hours for 7 days. linezolid No [id number] 600mg Take 1 Univers 600 mg 09-11 tablet by ity of tablet 00:00: 05:59 mouth [place] 00 :00 every 12 Medical (twelve) Branch hours for 7 days. diltiazem No [id number] 30mg Take 1 Univers 30 mg 09-11 [...] mg 02:00: First dose [place] 00 on [facility] 09/09/21 at Branch 2000, Until Discontinu ed, [...] ity of PEDIATRIC 05:15: 15:14 at 75 [place] IV infusion 00 :00 mL/hr, Medica l [facility] Branch , Starting on Fri09/05/21 at 2315, Until Dee 09/06/21 at 0914, Routine benzonatate Yes 100mg 100 mg, Un cameron (TESSALON 09-06 Oral, ity of PERLES) 00:54: Q8HPRN, [place] capsule 100 06 Starting Medi unruly mg on Fri Branch 09/05/21 at 1854, Until Discontinu ed, Routine, Cough diltiazem Yes 30mg 30 mg, Univer s (CARDIZEM) 09-05 Oral, Q6H, ity of tablet 30 18:00: [place] dose [place] mg 00 on [facility] Medical 09/05/21 at Branch 1200, Until [...] (after Medical last Branch modificati on) on [facility] 09/03/21 at 2115, Until Discontinu ed, Routine ferrous Yes 325mg 325 mg, Univer s sulfate 09-03 Oral, BID, ity of tablet 325 16:30: First dose [place] mg 00 on [facility] 09/03/21 at Branch 1030, Until Discontinu ed, Routine aspirin EC Yes 81mg 81 mg, Unive rs tablet 81 09-03 Oral, ity of mg 15:00: DAILY, [place] 00 First dose Medical on [facility] 09/03/21 at 0900, Until Discontinu ed, Routine PARoxetine Yes 20mg 20 mg, Unive rs (PAXIL) 09-03 Oral, ity of tablet 20 15:00: DAILY, [place] mg 00 First dose Medical on [facility] 09/03/21 at 0900, Until Discontinu ed finasteride Yes 5mg 5 mg, Unive rs (PROSCAR) 09-03 Oral, ity of tablet 5 mg 15:00: DAILY, [place] 00 First dose Medical on [facility] 09/03/21 at 0900, Until Discontinu ed NIFEdipine 2021- No 60mg 60 mg, Univ ers ER tablet 09-03 Oral, ity of 60 mg 15:00: 14:27 DAILY, [place] 00 :50 First dose Medical on [facility] 09/03/21 at 0900, Until Discontinu ed tamsulosin 2021- No .4mg 0.4 mg, Uni vers (FLOMAX) 09-03 Oral, ity of capsule 0.4 15:00: 03:06 DAILY, [place] as mg 00 :19 First dose Medical on [facility] 09/03/21 at 0900, Until Discontinu ed, Routine azithromyci 2021- No 500mg 500 mg, IV Univers n 09-03 01-26 Piggyback, ity of (ZITHROMAX) 07:30: 00:32 Q24H ABX, [place] 500 mg in 00 :51 First dose [facility] NaCl 0.9% on [facility] (NS) 250 mL 09/03/21 at VIAL-MATE 0130, [...] (0.083 15 Starting Medica l %) on [facility] nebulizer 09/03/21 at solution 0029, 2.5 mg [...] First dose [place] mg 00 on [facility] 09/02/21 at Branch 2100, Until Discontinu ed, Routine budesonide- 2021-0 Yes 2{puff} 2 Puff, [facility] formoteroL 1-24 Inhalation ity of (SYMBICORT) 02:00: , BID, [place] 160-4.5 00 First dose Medica l mcg/actuati on [facility] on inhaler 09/02/21 at 2 Puff 2000, Until Discontinu ed, Routine ipratropium 2021-0 Yes 3mL 3 mL, Unive rs -albuteroL 1-24 Inhalation ity of (DUONEB) 02:00: , Q4H, [place] 0.5 mg-3 00 First dose Medic al mg(2.5 mg (after Branch base)/3 mL last nebulizer modificati solution 3 on) on [place] mL 09/02/21 at 2000, Until Discontinu ed, AILYN furosemide No 20mg 20 mg, Univ ers (LASIX) 09-03 Slow IV ity of injection 01:15: 02:16 Push, [place] 20 mg 00 :00 ONCE, 1 Medical dose, On Branch [place] 09/02/21 at 1915, Routine methylPREDN 2021- No 40mg 40 mg, Uni vers ISolone sod 09-03 Intravenou i ty of succ 00:00: 21:42 s, Q6H, [place] (SOLU-MEDRO 00 :53 First dose Me dical L (PF)) (after Branch injection last 40 mg reorder) on [place] 09/02/21 at 1800, Until Discontinu ed, STAT Sliding Yes Subcutaneo Univ ers Scale -23 us, TID ity of Insulin - 23:00: MEALS+HS, [place] Lispro 00 First dose Medical (HumaLOG) + on [facility] Fsbg 09/02/21 at Testing 1700, Until Discontinu ed, Routine glucagon Yes 1mg 1 mg, Univers (GLUCAGEN 09-02 Intramuscu ity of DIAGNOSTIC 22:44: lar, PRN, [place] KIT) 34 Starting Medical injection 1 on [facility] mg 09/02/21 at 1644, Until Discontinu ed, AILYN, Blood Glucose < or = 70 mg/dL and patient is unable to swallow or has mental changes. dextrose 50 Yes 25mL 25 mL, Univ ers % in water 09-02 Slow IV ity of (D50W) 22:44: Push, PRN, [place] injection 34 Starting Medica l 25 mL on [facility] 09/02/21 at 1644, Until Discontinu ed, AILYN, Blood Glucose < or = 70 mg/dL and patient is unable to swallow or has mental status changes. acetaminoph Yes 650mg 650 mg, Un cameron en 09-02 Oral, ity of (TYLENOL) 21:38: Q6HPRN, [place] tablet 650 12 Starting Medic al mg on [place] Branch 09/02/21 at 1538, Until Discontinu ed, Routine, Pain (scale 1-3) ipratropium 2021- No 3mL 3 mL, Univ ers -albuteroL 09-02 Inhalation it y of (DUONEB) 19:15: 18:44 , ONCE, 1 [place] 0.5 mg-3 00 :00 dose, On Medical mg(2.5 mg [facility] base)/3 mL 09/02/21 at nebulizer 1315, AILYN solution 3 mL Saxagliptin 2021- No 2.5mg Take 2.5 Univers 2.5 mg 09-02 mg by ity of tablet 18:17: 00:00 mouth [place] 03 :00 daily. Medical Branch furosemide 2021- No 20mg Take 20 mg Univers 20 mg 09-02 by mouth ity of tablet 18:17: 00:00 daily. [place] 03 :00 Medical Branch busPIRone 2021- No 10mg Take 10 mg U nivers 10 mg 09-02 by mouth ity of tablet 18:17: 00:00 daily. [place] 03 :00 Medical Branch GLIPIZIDE 2021- No 10mg Take 10 mg U nivers ORAL 09-02 by mouth. ity of 18:17: 00:00 [place] 03 :00 Medical Branch amLODIPine 2021- No 5mg Take 5 mg U nivers 5 mg tablet 09-02 by mouth ity of 18:17: 00:00 daily. [place] 03 :00 Medical Branch tiotropium 2021- No Inhale. Uni vers bromide 09-02 ity of (SPIRIVA 18:17: 00:00 [place] WITH 03 :00 Medical HANDIHALER Branch INHALE) magnesium 2021- No 2g 2 g, IV Univ ers sulfate in 09-02 Piggyback, it y of water 2 16:45: 16:45 ONCE, 1 [place] gram/50 mL 00 :00 dose, On Medic al (4 %) [facility] infusion 2 09/02/21 at g 1045, [...] 40 mg 1045, STAT benzonatate 0 Yes [id number] 100mg Take 1 Univers 100 mg 1-23 capsule by ity of capsule 00:00: mouth 3 00 (three) Medical times Branch daily as needed for Cough. albuterol Yes [id number] 2{puff} Inhale 2 Univers 90 1-23 Puffs ity of mcg/actuati 00:00: every 4 [place] on inhaler 00 (four) Medical hours as Branch needed for Wheezing or Shortness of Breath. albuterol Yes [id number] 2.5mg Inhale 3 Univers 2.5 mg /3 1-23 mL every 4 ity of mL (0.083 00:00: (four) [place] %) 00 hours. May Medical nebulizer also Branch solution nebulize one extra every 6 hours. furosemide 0 Yes [id number] 20mg Take 1 U nivers 20 mg 1-23 tablet by ity of tablet 00:00: mouth [place] 00 every Medical morning. Branch benzonatate 2021-0 Yes [id number] 100mg Take 1 Univers 100 mg 1-23 capsule by ity of capsule 00:00: mouth 3 [place] 00 (three) Medical times Branch daily as needed for Cough. albuterol 2021-0 Yes [id number] 2{puff} Inhale 2 Univers 90 1-23 Puffs ity of mcg/actuati 00:00: every 4 [place] on inhaler 00 (four) Medical hours as Branch needed for Wheezing or Shortness of Breath. albuterol 2021-0 Yes [id number] 2.5mg Inhale 3 Univers 2.5 mg /3 1-23 mL every 4 ity of mL (0.083 00:00: (four) [place] %) 00 hours. May Medical nebulizer also Branch solution nebulize one extra every 6 hours. furosemide 2021-0 Yes [id number] 20mg Take 1 U nivers 20 mg 1-23 tablet by ity of tablet 00:00: mouth [place] 00 every Medical morning. Branch benzonatate 2021-0 Yes [id number] 100mg Take 1 Univers 100 mg 1-23 capsule by ity of capsule 00:00: mouth 3 (three) Medical times Branch daily as needed for Cough. albuterol 2021-0 Yes [id number] 2{puff} Inhale 2 Univers 90 1-23 Puffs ity of mcg/actuati 00:00: every 4 [place] on inhaler 00 (four) Medical hours as Branch needed for Wheezing or Shortness of Breath. albuterol 2021-0 Yes [id number] 2.5mg Inhale 3 Univers 2.5 mg /3 1-23 mL every 4 ity of mL (0.083 00:00: (four) [place] %) 00 hours. May Medical nebulizer also Branch solution nebulize one extra every 6 hours. furosemide 2021-0 Yes [id number] 20mg Take 1 U nivers 20 mg 1-23 tablet by ity of tablet 00:00: mouth [place] 00 every Medical morning. Branch benzonatate 2021-0 Yes [id number] 100mg Take 1 Univers 100 mg 1-23 capsule by ity of capsule 00:00: mouth 3 (three) Medical times Branch daily as needed for Cough. albuterol 2021-0 Yes [id number] 2{puff} Inhale 2 Univers 90 1-23 Puffs ity of mcg/actuati 00:00: every 4 [place] on inhaler 00 (four) Medical hours as Branch needed for Wheezing or Shortness of Breath. albuterol 2021-0 Yes [id number] 2.5mg Inhale 3 Univers 2.5 mg /3 1-23 mL every 4 ity of mL (0.083 00:00: (four) [place] %) 00 hours. May Medical nebulizer also Branch solution nebulize one extra every 6 hours. furosemide Yes [id number] 20mg Take 1 U nivers 20 mg -23 tablet by ity of tablet 00:00: mouth [place] 00 every Medical morning. Branch predniSONE 2021- No [id number] 40mg Take 2 Univers 20 mg 1-02 09-31 tablets by ity of tablet 00:00: 05:59 mouth [place] 00 :00 daily for Medical 7 days. Branch budesonide- Yes [id number] 2{puff} Inhale 2 Univers formoterol 3-29 Puffs 2 ity of (SYMBICORT) 00:00: (two) [place] 160-4.5 00 times Medical mcg/actuati daily. Branch on inhaler budesonide- Yes [id number] 2{puff} Inhale 2 Univers formoterol 3-29 Puffs 2 ity of (SYMBICORT) 00:00: (two) [place] 160-4.5 00 times Medical mcg/actuati daily. Branch on inhaler budesonide- Yes [id number] 2{puff} Inhale 2 Univers formoterol 3-29 Puffs 2 ity of (SYMBICORT) 00:00: (two) [place] 160-4.5 00 times Medical mcg/actuati daily. Branch on inhaler budesonide- Yes [id number] 2{puff} Inhale 2 Univers formoterol 3-29 Puffs [...] % Cholecalcif Cholecalcif No 1{capsu QD Cholecalci blily 50 MCG billy 50 MCG le} ferol [...] Immunizations Ordered Filled Immunization Date Status Comments [facility] e Immunization Name Name Pneumococcal 13 2017-10-06 Completed Universit y of Conjugate, PCV13 00:00:00 [facility] dical (Prevnar 13) Branch Pneumococcal 13 2017-10-06 Completed Universit y of Conjugate, PCV13 00:00:00 [facility] dical (Prevnar 13) Branch Pneumococcal 13 2017-10-06 Completed Universit y of Conjugate, PCV13 00:00:00 [facility] dical (Prevnar 13) Branch Pneumococcal 13 2017-10-06 Completed Universit y of Conjugate, PCV13 00:00:00 [facility] dical (Prevnar 13) Branch Influenza Virus 2017-05-11 Completed Universit y of Vaccine 00:00:00 [facility] Influenza Virus 2017-05-11 Completed Universit y of Vaccine 00:00:00 [facility] Influenza Virus 2017-05-11 Completed Universit y of Vaccine 00:00:00 [facility] Influenza Virus 2017-05-11 Completed Universit y of Vaccine 00:00:00 [facility] Vital Signs Vital Name Observation Time Observation Value Comments Source Systolic blood 2021-09-11 22:27:00 126 mm[Hg] Univer sity of pressure [facility] Diastolic blood 2021-09-11 22:27:00 66 mm[Hg] Unive rsity of pressure [facility] Heart rate 2021-09-11 22:27:00 77 /min Universi ty [facility] Body temperature 2021-09-11 22:27:00 37 [facility] Res[facility] rate 2021-09-11 22:27:00 18 /min [facility] Oxygen saturation in 2021-09-11 22:27:00 96 /min [facility] Arterial blood by [facility] Pulse oximetry [place] Body weight 2021-09-10 10:13:00 91.627 kg Universi ty [facility] BMI 2021-09-10 10:13:00 29.83 kg/m2 [facility] [place] Body height 2021-09-02 15:19:00 175.3 cm [facility] height 2020-07-31 11:30:00 69 [in_i] [facility] weight 2020-07-31 11:30:00 210.8 [lb_av] Common [facility] temperature 2020-07-31 11:30:00 98.3 [degF] Common [facility] bmi 2020-07-31 11:30:00 31.13 kg/m2 [facility] oximetry 2020-07-31 11:30:00 97 % [facility] blood pressure 2020-07-31 11:30:00 169 mm[Hg] [facility] - systolic [facility] blood pressure 2020-07-31 11:30:00 76 mm[Hg] [facility] - diastolic [facility] Procedures Procedure Date / Time Performing Clinician Source Performed EXTERNAL PROVIDER RECORDS 2022-10-09 06:01:00 Doctor [facility] [place] [facility] AUTHORIZATION FOR RELEASE 2021-10-11 06:01:00 Doctor Unassigned, [facility] [place] [facility] POCT GLUCOSE (AUTOMATED) 2021-09-11 17:51:00 Jere Woodward Uni versity of [facility] POCT GLUCOSE (AUTOMATED) 2021-09-11 14:11:00 [facility] BASIC METABOLIC PANEL (NA, 2021-09-11 10:33:00 [facility], CL, CO2, GLUCOSE, BUN, Medica l Branch CREATININE, CA) CBC WITH DIFF 2021-09-11 10:33:00 Lance Solis [facility] POCT GLUCOSE (AUTOMATED) 2021-09-11 02:20:00 Jere Woodward Uni versity of [facility] POCT GLUCOSE (AUTOMATED) 2021-09-10 23:10:00 Jere Woodward Uni versity of [facility] POCT GLUCOSE (AUTOMATED) 2021-09-10 17:41:00 Jere Woodward Uni versity of [facility] POCT GLUCOSE (AUTOMATED) 2021-09-10 13:53:00 Jere Woodward Uni versity of [facility] POCT GLUCOSE (AUTOMATED) 2021-09-10 03:13:00 Jere Woodward Uni versity of [facility] POCT GLUCOSE (AUTOMATED) 2021-09-09 23:15:00 Jere Woodward Uni versity of [facility] POCT GLUCOSE (AUTOMATED) 2021-09-09 17:16:00 Jere Woodward Uni versity of [facility] POCT GLUCOSE (AUTOMATED) 2021-09-09 13:49:00 Jere Woodward Uni versity of [facility] BASIC METABOLIC PANEL (NA, 2021-09-09 11:00:00 [facility]is [facility] K, CL, CO2, GLUCOSE, BUN, Medica l Branch CREATININE, CA) LIPID PANEL ([id number])(TOTAL 2021-09-09 11:00:00 Katya Ayoub [facility] CHOLESTEROL, [facility] TRIGLYCERIDES, HDL) CBC WITH DIFF 2021-09-09 11:00:00 Lance Solis [facility] N-TERMINAL PRO-BNP 2021-09-09 11:00:00 Leslie Garcia [facility] POCT GLUCOSE (AUTOMATED) 2021-09-09 03:38:00 Jere Woodward Uni versity [facility] POCT GLUCOSE (AUTOMATED) 2021-09-08 23:10:00 Jere Woodward Uni versity [facility] POCT GLUCOSE (AUTOMATED) 2021-09-08 17:41:00 Jere Woodward Uni versity [facility] POCT GLUCOSE (AUTOMATED) 2021-09-08 13:46:00 Jere Woodward Uni versity [facility] POCT GLUCOSE (AUTOMATED) 2021-09-08 03:01:00 [facility]SE (AUTOMATED) 2021-09-07 22:41:00 Jere Woodward Uni versity [facility] POCT GLUCOSE (AUTOMATED) 2021-09-07 18:09:00 [facility]SE (AUTOMATED) 2021-09-07 14:17:00 [facility] BASIC METABOLIC PANEL (NA, 2021-09-07 11:30:00 Lance [facility]is [facility] K, CL, CO2, GLUCOSE, BUN, Medica l Branch CREATININE, CA) CBC WITH DIFF 2021-09-07 11:30:00 Lance Solis [facility] POCT GLUCOSE (AUTOMATED) 2021-09-07 03:00:00 Jere Woodward versity [facility] POCT GLUCOSE (AUTOMATED) 2021-09-07 01:32:00 Jere Woodward Uni versity [facility] POCT GLUCOSE (AUTOMATED) 2021-09-06 22:54:00 Jere Woodward Uni versity [facility] POCT GLUCOSE (AUTOMATED) 2021-09-06 17:37:00 Abdullah, Jere [facility] EXTRA TUBE URINE CULTURE 2021-09-06 14:38:00 Larry Martinez [facility] URINALYSIS MICROSCOPIC 2021-09-06 14:35:00 James Romeo [facility] CREATININE, URINE RANDOM 2021-09-06 14:35:00 James Romeo [facility] UREA NITROGEN, URINE 2021-09-06 14:35:00 Jamse Romeo [facility] POCT GLUCOSE (AUTOMATED) 2021-09-06 13:47:00 Jere Woodward [facility] PHOSPHORUS 2021-09-06 08:42:00 Trace Jere [facility] MAGNESIUM 2021-09-06 08:42:00 Agueda [facility] TROPONIN I 2021-09-06 08:42:00 Trace [facility] BASIC METABOLIC PANEL (NA, 2021-09-06 08:42:00 James Romeo [facility] K, CL, CO2, GLUCOSE, BUN, Medica l Branch CREATININE, CA) CBC WITH DIFF 2021-09-06 08:42:00 [facility] ABDOM[facility]AL AORTA SCREEN 2021-09-06 02:52:00 Lance Solis [facility] POCT GLUCOSE (AUTOMATED) 2021-09-06 02:49:00 Jere Woodward [facility] POCT GLUCOSE (AUTOMATED) 2021-09-05 22:13:00 Jere Woodward [facility] VANCOMYCIN RANDOM LEVEL 2021-09-05 22:08:00 Mahogany Rodriguez [facility] POCT GLUCOSE (AUTOMATED) 2021-09-05 17:39:00 Jere Woodward [facility] BASIC METABOLIC PANEL (NA, 2021-09-05 16:12:00 Leslie Garcia [facility] K, CL, CO2, GLUCOSE, BUN, Medica l Branch CREATININE, CA) N-TERMINAL PRO-BNP 2021-09-05 16:12:00 Jose, Qiangjun [facility] POCT GLUCOSE (AUTOMATED) 2021-09-05 13:34:00 Jere Woodward [facility] POCT GLUCOSE (AUTOMATED) 2021-09-05 02:03:00 Jere Woodward [facility] POCT GLUCOSE (AUTOMATED) 2021-09-04 23:20:00 Jere Woodward [facility] RESPIRATORY PANEL BY PCR 2021-09-04 20:58:00 Mahogany Rodriguez [facility] CT ABDOMEN PELVIS WO 2021-09-04 20:44:03 Mahogany Rodriguez [facility] POCT GLUCOSE (AUTOMATED) 2021-09-04 17:38:00 Jere Woodward [facility] MRSA / MSSA SCREEN BY PCR, 2021-09-04 16:15:00 Leanne Gannon [facility] POCT GLUCOSE (AUTOMATED) 2021-09-04 13:38:00 Jere Woodward [facility] TROPONIN I 2021-09-04 10:42:00 Monisha carolina [facility] BASIC METABOLIC PANEL (NA, 2021-09-04 10:42:00 Jere Woodward [facility] K, CL, CO2, GLUCOSE, BUN, Medica l Branch CREATININE, CA) CBC WITH DIFF 2021-09-04 10:42:00 Jere Woodward [facility] N-TERMINAL PRO-BNP 2021-09-04 10:42:00 Deborah Bearden [facility] BLOOD CULTURE SCREEN 2021-09-04 05:37:00 Deborah Bearden [facility] PROCALCITONIN 2021-09-04 05:37:00 Monisha carolina [facility] POCT GLUCOSE (AUTOMATED) 2021-09-04 02:44:00 Jere Woodward [facility] POCT GLUCOSE (AUTOMATED) 2021-09-04 01:30:00 Jere Woodward [facility] URINALYSIS 2021-09-03 22:57:00 Mirella Burdick [facility] URINE CULTURE 2021-09-03 22:57:00 Gennaro Mirella Stephanie [facility] POCT GLUCOSE (AUTOMATED) 2021-09-03 22:52:00 Jere Woodward [facility] US RETROPERITONEAL 2021-09-03 17:48:51 Eunice [facility] [place] POCT GLUCOSE (AUTOMATED) 2021-09-03 17:27:00 Jere Woodward [facility] TRANSTHORACIC ECHO (TTE) 2021-09-03 15:58:00 Gennaro Mirella [facility] POCT GLUCOSE (AUTOMATED) 2021-09-03 14:12:00 Jere Woodward [facility] ACUTE CARE VENOUS BLOOD 2021-09-03 10:38:00 Deborah Bearden [facility] VITAMIN B12, LEVEL 2021-09-03 09:39:00 Gennaro Mirella Stephanie [facility] URIC ACID 2021-09-03 09:38:00 Monisha carolina [facility] MAGNESIUM 2021-09-03 09:38:00 Jere Woodward [facility] TROPONIN I 2021-09-03 09:38:00 Gennaro Mirella Stephanie [facility] BASIC METABOLIC PANEL (NA, 2021-09-03 09:38:00 Jere Woodward [facility] K, CL, CO2, GLUCOSE, BUN, Medica l Branch CREATININE, CA) CBC WITH DIFF 2021-09-03 09:38:00 Jere Woodward [facility] N-TERMINAL PRO-BNP 2021-09-03 09:38:00 Deborah Bearden [facility] FREE T3 2021-09-03 09:38:00 Mirella Burdick [facility] PHOSPHORUS 2021-09-03 02:38:00 Jere Woodward [facility] URIC ACID 2021-09-03 02:38:00 Monisha Adnan [facility] TROPONIN I 2021-09-03 02:38:00 Mirella Burdick [facility] POCT GLUCOSE (AUTOMATED) 2021-09-02 22:48:00 Jere Woodward [facility] POCT GLUCOSE (AUTOMATED) 2021-09-02 21:32:00 Jere Woodward [facility] ACUTE CARE ARTERIAL BLOOD 2021-09-02 16:56:00 [facility] GAS [facility] XR CHEST 1 VW 2021-09-02 16:29:28 Quinn Ibarra [facility] RAPID INFLUENZA A/B 2021-09-02 15:40:00 Quinn [facility] (ID NOW RAPID 2021-09-02 15:38:00 Quinn Ibarra [facility] TESTING) [facility] LAB ONLY COVID 2021-09-02 15:38:00 [facility] INTERPRETATION [facility] BLOOD CULTURE SCREEN 2021-09-02 15:32:00 Quinn Ibarra [facility] LIPASE 2021-09-02 15:32:00 Quinn Ibarra [facility] FERRITIN SERUM 2021-09-02 15:32:00 Mirella Burdick [facility] TROPONIN I 2021-09-02 15:32:00 Quinn Ibarra [facility] FREE T4 2021-09-02 15:32:00 Gennaro Mirella Stephanie [facility] THYROID STIMULATING 2021-09-02 15:32:00 Mirella Burdick Stephanie [facility] HORMONE [facility] COMP. METABOLIC PANEL 2021-09-02 15:32:00 Stacey [facility] ([id number]) [facility] IRON PANEL 2021-09-02 15:32:00 Gennaro Mirella Stephanie [facility] CBC WITH DIFF 2021-09-02 15:32:00 Quinn Ibarra [facility] GLYCOSYLATED HEMOGLOBIN 2021-09-02 15:32:00 Gennaro Mirella [facility] (A1C) [facility] PROTHROMBIN TIME / INR 2021-09-02 15:32:00 Quinn Ibarra [facility] PARTIAL THRMPLAS 2021-09-02 15:32:00 Quinn Ibarra [facility] N-TERMINAL PRO-BNP 2021-09-02 15:32:00 Quinn Ibarra [facility] PROCALCITONIN 2021-09-02 15:32:00 Mirella Burdick [facility] BLOOD CULTURE WORKUP 2021-09-02 15:32:00 [facility] ROUTINE & RHYTHM 2021-09-02 15:16:43 [facility] Start End Encounter Admission Attending Care Care Encounter Source Date/Time Date/Time Type Type Clinicians Facility Department ID 2021-09-05 Outpatient [facility] [id number] Common 12:23:38 [id number] [facility] 2021-09-05 [facility] [id number] Common 12:15:10 [id number] [facility] 2022-10-24 2022-10-24 Outpatient Nicolette [facility] [id number] Univers 16:30:00 16:30:00 [facility] 2022-10-10 2022-10-10 Outpatient Nicolette [facility] [id number] Univers 16:30:00 16:30:00 [facility] 2022-10-09 2022-10-09 Orders Doctor HANNAH Vincent2.840.114 [id number] Univers 00:00:00 00:00:00 Only Unassigned, CLAIR 350.1.13.10 [place]y of [place] [facility] 4.2.7.2.686 Naresh as [id number] [address] 2022-07-22 2022-07-22 Outpatient Twin MARTINEZ [facility] [id number] [address] 13:59:00 23:59:00 [facility] 2021-10-11 2021-10-11 Orders Doctor HANNAH Vincent2.840.114 [id number] Univers 00:00:00 00:00:00 Only Unassigned, CLAIR 350.1.13.10 [place] [facility] 4.2.7.2.686 Naresh as [id number] [facility] [address] 2021-09-12 2021-09-12 Transition [facility] [id number] Univers 00:00:00 00:00:00 of Care Hemanht AMAYA 350.1.13.10 [place] [id number] [facility] [address] 2021-09-02 2021-09-11 Inpatient X [facility] [id number] Univers 09:15:00 18:12:00 JERE ity of [facility] 2021-09-02 2021-09-11 [facility] Quinn Ibarra [facility] 1.2.840 .114 [id number] Univers 09:15:00 18:12:00 Encounter [facility] 350.1.13.10 [place] [id number] [facility] [address] 2020-08-02 2020-08-02 (TEL) STLMLC STLMLC [id number] Co mmon 00:00:00 00:00:00 [facility] 2020-07-31 2020-07-31 OFFICE STLMLC STLMLC [id number] Co mmon 00:00:00 00:00:00 VISIT [facility] it PT LEVEL 4 [facility] Results Test Description Test Time Test Comments Results Result [facility] e Comments NM LUNG (V/Q ) 2022-07-22 SCAN W ISOTOPE 15:46:51 [facility] : 1945 Sex: M Radio nuclide perfusion lung scanLocation Code: [id number]: Pulmonary embolus with shortness of breathCOMPARISON: Chest [...] by: Axel Gupta MD 07/22/2022 3:46 PM SENIOR BUSINESS INTELLIGENCE ANALYST XR CHEST 1 VIEW 2022-07-22 PORTABLE 15:45:57 [facility] A[facility]URI L[facility]PEZ : 1945 Sex: M [...] by: Bienvenido Cuenca MD 07/22/2022 3:45 PM SENIOR BUSINESS INTELLIGENCE ANALYST POCT GLUCOSE (AUTOMATED) 2021-09-11 17:56:19 Test Item Value Reference Range Interpretation Comme nts POCT GLU (test code = 0187854163) 143 mg/dL 70-110 H Lab Interpretation (test code = 95750-8) Abnormal [facility] GLUCOSE (AUTOMATED)2021-09-11 14:31:01 Test Item Value Reference Range Interpretation Comments POCT GLU (test code = 1131424244) 140 mg/dL 70-110 H Lab Interpretation (test code = Abnormal 56222-1) [facility] METABOLIC PANEL (NA, K, CL, CO2, GLUCOSE, BUN, CREATININE, CA)2021-09-11 11:27:07 Test Item Value Reference Range Interpretation Comments NA (test code = 142 mmol/L 135-145 3171066861) K (test code = 4.7 mmol/L 3.5-5.0 4872287338) CL (test code = 116 mmol/L 98-108 H 6216813871) CO2 TOTAL (test code = 21 mmol/L 23-31 L 4858776151) AGAP (test code = 2-16 0669736910) BUN (test code = 53 mg/dL 7-23 H 5627697274) GLUCOSE (test code = 126 mg/dL 70-110 H 2799508586) CREATININE (test code = 2.92 mg/dL 0.60-1.25 H 0258209216) CALCIUM (test code = 8.8 mg/dL 8.6-10.6 1515835926) eGFR (test code = mL/min/1.73m2 8194019250) RADHA (test code = RADHA) Association of [...] tests). Lab Interpretation Abnormal (test code = 52283-4) [facility] WITH [id number] 11:10:42 Test Item Value Reference Range Interpretation Comments WBC (test code = See_Comment [Automated 2990-2) message] The sy stem which generated this [...] (test code = 52.9 fL 38.5-51.6 H 44994-6) RDW-CV (test code = 15.3 % 12.1-15.4 788-0) PLT (test code = See_Comment [Automated 777-3) message] The sy stem which generated this result transmitted reference range : 150 - 328 10*3/ ?L. The reference r hilary was not used to interpret this result as normal/abnormal . MPV (test code = 10.4 fL 9.8-13.0 82410-6) NRBC/100 WBC (test See_Comment [Automat ed code = 3571012361) message] The system which generated this result transmitted reference range : 0.0 - 10.0 /100 WBCs. The refer ence range was not u sed to interpret th is result as normal/abnormal . NRBC x10^3 (test code <0.01 See_Comment [Auto mated = 9470753395) message] The s ystem which generated this result transmitted reference range : 10*3/?L. The reference range was not used to interpret this result as normal/abnormal . GRAN MAT (NEUT) % 77.5 % (test code = 770-8) IMM GRAN % (test code 0.50 % = 4887518174) LYMPH % (test code = 15.6 % 736-9) MONO % (test code = 5.5 % 5905-5) EOS % (test code = 0.9 % 713-8) BASO % (test code = 0.0 % 706-2) GRAN MAT x10^3(ANC) 4.93 10*3/uL 1.99-6.95 (test code = 5162126751) IMM GRAN x10^3 (test 0.03 10*3/uL 0.00-0.06 code = 0695965260) LYMPH x10^3 (test code 0.99 10*3/uL 1.09-3.23 L = 731-0) MONO x10^3 (test code 0.35 10*3/uL 0.36-1.02 L = 742-7) EOS x10^3 (test code = 0.06 10*3/uL 0.06-0.53 711-2) BASO x10^3 (test code <0.03 0.01-0.09 = 704-7) Lab Interpretation Abnormal (test code = 68285-5) [facility] GLUCOSE (AUTOMATED)2021-09-11 02:38:30 Test Item Value Reference Range Interpretation Comments POCT GLU (test code = 2238755185) 195 mg/dL 70-110 H Lab Interpretation (test code = Abnormal 63654-9) [facility] GLUCOSE (AUTOMATED)2021-09-10 23:44:28 Test Item Value Reference Range Interpretation Comments POCT GLU (test code = 6639522776) 147 mg/dL 70-110 H Lab Interpretation (test code = Abnormal 87634-7) [facility] GLUCOSE (AUTOMATED)2021-09-10 18:03:55 Test Item Value Reference Range Interpretation Comments POCT GLU (test code = 7293411423) 162 mg/dL 70-110 H Lab Interpretation (test code = Abnormal 61642-0) [facility]TOTAL CHOLESTEROL, TRIGLYCERIDES, HDL)2021-09-10 16:55:36 Test Item Value Reference Range Interpretation Comments CHOL (test code = 93 mg/dL 120-200 L 3955835252) HDL (test code = 56 mg/dL >40 3488556792) HDLC RATIO (test code = See_Comment [Au tomated message] 6049023970) The system [employer] generated this result transmitted ref erence range: <=5.0. T he reference range was not used to int erpret this result as normal/abnormal . TRIG (test code = 85 mg/dL 30-170 7965933580) LDL CHOL (test code = 20 mg/dL See_Comment [Auto mated message] 81966-3) The system [employer] generated this result transmitted ref erence range: <=160. T he reference range was not used to int erpret this result as normal/abnormal . VLDL (test code = 17 mg/dL 5-60 3890144773) Lab Interpretation (test Abnormal code = 38635-8) [facility] GLUCOSE (AUTOMATED)2021-09-10 14:34:31 Test Item Value Reference Range Interpretation Comments POCT GLU (test code = 2804962288) 150 mg/dL 70-110 H Lab Interpretation (test code = Abnormal 09102-5) [facility] GLUCOSE (AUTOMATED)2021-09-10 03:18:02 Test Item Value Reference Range Interpretation Comments POCT GLU (test code = 1084084114) 163 mg/dL 70-110 H Lab Interpretation (test code = Abnormal 45601-9) [facility] GLUCOSE (AUTOMATED)2021-09-09 23:22:00 Test Item Value Reference Range Interpretation Comments POCT GLU (test code = 9575719815) 153 mg/dL 70-110 H Lab Interpretation (test code = Abnormal 38766-0) [id number] 20:42:21 Test Item Value Reference Range Interpretation Comments NT-proBNP (test code 3860 pg/mL See_Comment H [Autom ated = 9579355590) message] The system which generated this result transmitted reference range : <=450. The reference range was not used to interpret this result as normal/abnormal . RADHA (test code = RADHA) Biotin has been reported to cause a negative bias, interpret results relative to patient's use of biotin. Lab Interpretation Abnormal (test code = 24149-1) [facility] GLUCOSE (AUTOMATED)2021-09-09 17:29:37 Test Item Value Reference Range Interpretation Comments POCT GLU (test code = 1110768248) 121 mg/dL 70-110 H Lab Interpretation (test code = Abnormal 59583-4) [facility] GLUCOSE (AUTOMATED)2021-09-09 13:54:41 Test Item Value Reference Range Interpretation Comments POCT GLU (test code = 5340461128) 118 mg/dL 70-110 H Lab Interpretation (test code = Abnormal 55275-2) [facility] (NA, K, CL, CO2, GLUCOSE, BUN, CREATININE, CA)2021-09-09 13:01:38 Test Item Value Reference Range Interpretation Comments NA (test code = 141 mmol/L 135-145 6705592212) K (test code = 4.7 mmol/L 3.5-5.0 6554591304) CL (test code = 115 mmol/L 98-108 H 7826792171) CO2 TOTAL (test code = 22 mmol/L 23-31 L 7005046616) AGAP (test code = 2-16 8002924554) BUN (test code = 59 mg/dL 7-23 H 2794260550) GLUCOSE (test code = 114 mg/dL 70-110 H 6952852558) CREATININE (test code = 3.09 mg/dL 0.60-1.25 H 8211593708) CALCIUM (test code = 8.9 mg/dL 8.6-10.6 1668385867) eGFR (test code = mL/min/1.73m2 3438028737) RADHA (test code = RADHA) Association of [...] tests). Lab Interpretation Abnormal (test code = 89033-4) [facility] WITH [id number] 12:42:15 Test Item Value Reference Range Interpretation Comments WBC (test code = See_Comment [Automated 2656-2) message] The sy stem which generated this result transmitted reference range : 4.20 - 10.70 10*3/?L. The reference range was not used to interpret this result as normal/abnormal . RBC (test code = See_Comment L [Automated 739-8) message] The sy stem which generated this [...] (test code = 52.5 fL 38.5-51.6 H 99517-4) RDW-CV (test code = 15.1 % 12.1-15.4 788-0) PLT (test code = See_Comment [Automated 777-3) message] The sy stem which generated this result transmitted reference range : 150 - 328 10*3/ ?L. The reference r hilary was not used to interpret this result as normal/abnormal . MPV (test code = 10.5 fL 9.8-13.0 72621-7) NRBC/100 WBC (test See_Comment [Automat ed code = 6021129418) message] The system which generated this result transmitted reference range : 0.0 - 10.0 /100 WBCs. The refer ence range was not u sed to interpret th is result as normal/abnormal . NRBC x10^3 (test code <0.01 See_Comment [Auto mated = 1429905584) message] The s ystem which generated this result transmitted reference range : 10*3/?L. The reference range was not used to interpret this result as normal/abnormal . GRAN MAT (NEUT) % 81.8 % (test code = 770-8) IMM GRAN % (test code 0.50 % = 1472640155) LYMPH % (test code = 13.0 % 736-9) MONO % (test code = 4.3 % 5905-5) EOS % (test code = 0.4 % 713-8) BASO % (test code = 0.0 % 706-2) GRAN MAT x10^3(ANC) 6.71 10*3/uL 1.99-6.95 (test code = 0132515032) IMM GRAN x10^3 (test 0.04 10*3/uL 0.00-0.06 code = 0075073462) LYMPH x10^3 (test code 1.07 10*3/uL 1.09-3.23 L = 731-0) MONO x10^3 (test code 0.35 10*3/uL 0.36-1.02 L = 742-7) EOS x10^3 (test code = 0.03 10*3/uL 0.06-0.53 L 711-2) BASO x10^3 (test code <0.03 0.01-0.09 = 704-7) Lab Interpretation Abnormal (test code = 51895-7) [facility] CULTURE [id number] 06:01:53 Test Item Value Reference Range Interpretation Comments Blood Culture-Aerobic No organisms No growth Previo us (test code = 24138-9) isolated prelim inary verified result was Culture In Progress on 09/04/2021 at 03 01 CSTPrevious preliminary verified result was No growth a t 24 hours on 09/05/2021 at 00 01 CSTPrevious preliminary verified result was No growth a t 48 hours on 09/06/2021 at 00 01 CSTPrevious preliminary verified result was No growth a t 72 hours on 09/07/2021 at 00 01 SENIOR BUSINESS INTELLIGENCE ANALYST Blood No organisms No growth Previous Culture-Anaerobic isolated preliminar y (test code = 62387-8) verifi ed result was Culture In Progress on 09/04/2021 at 03 01 CSTPrevious preliminary verified result was No growth a t 24 hours on 09/05/2021 at 00 01 CSTPrevious preliminary verified result was No growth a t 48 hours on 09/06/2021 at 00 01 CSTPrevious preliminary verified result was No growth a t 72 hours on 09/07/2021 at 00 01 SENIOR BUSINESS INTELLIGENCE ANALYST Lab Interpretation Normal (test code = 30834-2) [facility] CULTURE [id number] 06:01:53 Test Item Value Reference Range Interpretation Comments Blood Culture-Aerobic No organisms No growth Previo us (test code = 25981-7) isolated prelim inary verified result was Culture In Progress on 09/04/2021 at 03 01 CSTPrevious preliminary verified result was No growth a t 24 hours on 09/05/2021 at 00 01 CSTPrevious preliminary verified result was No growth a t 48 hours on 09/06/2021 at 00 01 CSTPrevious preliminary verified result was No growth a t 72 hours on 09/07/2021 at 00 01 SENIOR BUSINESS INTELLIGENCE ANALYST Blood No organisms No growth Previous Culture-Anaerobic isolated preliminar y (test code = 11052-0) verifi ed result was Culture In Progress on 09/04/2021 at 03 01 CSTPrevious preliminary verified result was No growth a t 24 hours on 09/05/2021 at 00 01 CSTPrevious preliminary verified result was No growth a t 48 hours on 09/06/2021 at 00 01 CSTPrevious preliminary verified result was No growth a t 72 hours on 09/07/2021 at 00 01 SENIOR BUSINESS INTELLIGENCE ANALYST Lab Interpretation Normal (test code = 08192-1) [facility] GLUCOSE (AUTOMATED)2021-09-09 03:41:10 Test Item Value Reference Range Interpretation Comments POCT GLU (test code = 0658447480) 196 mg/dL 70-110 H Lab Interpretation (test code = Abnormal 00163-6) [facility] GLUCOSE (AUTOMATED)2021-09-08 23:12:05 Test Item Value Reference Range Interpretation Comments POCT GLU (test code = 9674523928) 138 mg/dL 70-110 H Lab Interpretation (test code = Abnormal 13786-1) [facility] GLUCOSE (AUTOMATED)2021-09-08 17:46:12 Test Item Value Reference Range Interpretation Comments POCT GLU (test code = 5445068654) 181 mg/dL 70-110 H Lab Interpretation (test code = Abnormal 99467-1) [facility] GLUCOSE (AUTOMATED)2021-09-08 13:53:55 Test Item Value Reference Range Interpretation Comments POCT GLU (test code = 1601120733) 179 mg/dL 70-110 H Lab Interpretation (test code = Abnormal 96655-4) [facility] GLUCOSE (AUTOMATED)2021-09-08 03:04:37 Test Item Value Reference Range Interpretation Comments POCT GLU (test code = 7403321032) 241 mg/dL 70-110 H Lab Interpretation (test code = Abnormal 05325-3) [facility] GLUCOSE (AUTOMATED)2021-09-07 23:44:53 Test Item Value Reference Range Interpretation Comments POCT GLU (test code = 9003952792) 268 mg/dL 70-110 H Lab Interpretation (test code = Abnormal 06199-8) [facility] GLUCOSE (AUTOMATED)2021-09-07 19:18:14 Test Item Value Reference Range Interpretation Comments POCT GLU (test code = 2155805591) 208 mg/dL 70-110 H Lab Interpretation (test code = Abnormal 75390-7) [facility] # [id number] 16:02:10 Test Item Value Reference Range Interpretation Comments Blood Culture-Aerobic No organisms No growth Previo us (test code = 97559-2) isolated prelim inary verified result was Culture In Progress on 09/02/2021 at 13 02 CSTPrevious preliminary verified result was No growth a t 24 hours on 09/03/2021 at 10 01 CSTPrevious preliminary verified result was No growth a t 48 hours on 09/04/2021 at 10 01 CSTPrevious preliminary verified result was No growth a t 72 hours on 09/05/2021 at 10 01 SENIOR BUSINESS INTELLIGENCE ANALYST Blood No organisms No growth Previous Culture-Anaerobic isolated preliminar y (test code = 99007-6) verifi ed result was Culture In Progress on 09/02/2021 at 13 02 CSTPrevious preliminary verified result was No growth a t 24 hours on 09/03/2021 at 10 01 CSTPrevious preliminary verified result was No growth a t 48 hours on 09/04/2021 at 10 01 CSTPrevious preliminary verified result was No growth a t 72 hours on 09/05/2021 at 10 01 SENIOR BUSINESS INTELLIGENCE ANALYST Lab Interpretation Normal (test code = 14336-4) [facility] GLUCOSE (AUTOMATED)2021-09-07 15:05:58 Test Item Value Reference Range Interpretation Comments POCT GLU (test code = 9494778900) 158 mg/dL 70-110 H Lab Interpretation (test code = Abnormal 91755-6) [facility] (NA, K, CL, CO2, GLUCOSE, BUN, CREATININE, CA)2021-09-07 12:31:00 Test Item Value Reference Range Interpretation Comments NA (test code = 140 mmol/L 135-145 1669658434) K (test code = 4.9 mmol/L 3.5-5.0 1466654937) CL (test code = 113 mmol/L 98-108 H 4260613840) CO2 TOTAL (test code = 22 mmol/L 23-31 L 1789454258) AGAP (test code = 2-16 4359024188) BUN (test code = 51 mg/dL 7-23 H 5594792540) GLUCOSE (test code = 179 mg/dL 70-110 H 0715135374) CREATININE (test code = 2.98 mg/dL 0.60-1.25 H 7175119109) CALCIUM (test code = 9.0 mg/dL 8.6-10.6 6844311833) eGFR (test code = mL/min/1.73m2 0145509702) RADHA (test code = RADHA) Association of [...] tests). Lab Interpretation Abnormal (test code = 79697-5) [facility] WITH [id number] 12:23:57 Test Item Value Reference Range Interpretation [...] (test code = 51.8 fL 38.5-51.6 H 45597-6) RDW-CV (test code = 14.9 % 12.1-15.4 788-0) PLT (test code = See_Comment [Automated 777-3) message] The sy stem which generated this result transmitted reference range : 150 - 328 10*3/ ?L. The reference r hilary was not used to interpret this result as normal/abnormal . MPV (test code = 10.1 fL 9.8-13.0 52775-6) NRBC/100 WBC (test See_Comment [Automat ed code = 0405413731) message] The system which generated this result transmitted reference range : 0.0 - 10.0 /100 WBCs. The refer ence range was not u sed to interpret th is result as normal/abnormal . NRBC x10^3 (test code <0.01 See_Comment [Auto mated = 7777203283) message] The s ystem which generated this result transmitted reference range : 10*3/?L. The reference range was not used to interpret this result as normal/abnormal . GRAN MAT (NEUT) % 88.6 % (test code = 770-8) IMM GRAN % (test code 0.40 % = 2328912866) LYMPH % (test code = 7.1 % 736-9) MONO % (test code = 3.8 % 5905-5) EOS % (test code = 0.0 % 713-8) BASO % (test code = 0.1 % 706-2) GRAN MAT x10^3(ANC) 6.02 10*3/uL 1.99-6.95 (test code = 2534148567) IMM GRAN x10^3 (test 0.03 10*3/uL 0.00-0.06 code = 9657073852) LYMPH x10^3 (test code 0.48 10*3/uL 1.09-3.23 L = 731-0) MONO x10^3 (test code 0.26 10*3/uL 0.36-1.02 L = 742-7) EOS x10^3 (test code = <0.03 0.06-0.53 L 711-2) BASO x10^3 (test code <0.03 0.01-0.09 = 704-7) Lab Interpretation Abnormal (test code = 12271-1) [facility] GLUCOSE (AUTOMATED)2021-09-07 03:05:46 Test Item Value Reference Range Interpretation Comments POCT GLU (test code = 5830503833) 235 mg/dL 70-110 H Lab Interpretation (test code = Abnormal 09145-2) [facility] GLUCOSE (AUTOMATED)2021-09-07 01:42:32 Test Item Value Reference Range Interpretation Comments POCT GLU (test code = 4331959587) 291 mg/dL 70-110 H Lab Interpretation (test code = Abnormal 75910-4) [facility] GLUCOSE (AUTOMATED)2021-09-06 22:58:03 Test Item Value Reference Range Interpretation Comments POCT GLU (test code = 2542766040) 291 mg/dL 70-110 H Lab Interpretation (test code = Abnormal 88990-0) [facility] GLUCOSE (AUTOMATED)2021-09-06 17:52:21 Test Item Value Reference Range Interpretation Comments POCT GLU (test code = 2814463735) 185 mg/dL 70-110 H Lab Interpretation (test code = Abnormal 50386-0) [facility] GLUCOSE (AUTOMATED)2021-09-06 14:03:24 Test Item Value Reference Range Interpretation Comments POCT GLU (test code = 0592121949) 131 mg/dL 70-110 H Lab Interpretation (test code = Abnormal 48921-1) [facility] WITH [id number] 09:20:33 Test Item Value Reference Range Interpretation [...] (test code = 53.1 fL 38.5-51.6 H 37463-7) RDW-CV (test code = 15.1 % 12.1-15.4 788-0) PLT (test code = See_Comment [Automated 777-3) message] The sy stem which generated this result transmitted reference range : 150 - 328 10*3/ ?L. The reference r hilary was not used to interpret this result as normal/abnormal . MPV (test code = 10.0 fL 9.8-13.0 01632-1) NRBC/100 WBC (test See_Comment [Automat ed code = 1800578334) message] The system which generated this result transmitted reference range : 0.0 - 10.0 /100 WBCs. The refer ence range was not u sed to interpret th is result as normal/abnormal . NRBC x10^3 (test code <0.01 See_Comment [Auto mated = 8565657700) message] The s [employer] which generated this result transmitted reference range : 10*3/?L. The reference range was not used to interpret this result as normal/abnormal . GRAN MAT (NEUT) % 85.6 % (test code = 770-8) IMM GRAN % (test code 0.70 % = 0106620568) LYMPH % (test code = 8.9 % 736-9) MONO % (test code = 4.7 % 5905-5) EOS % (test code = 0.0 % 713-8) BASO % (test code = 0.1 % 706-2) GRAN MAT x10^3(ANC) 6.55 10*3/uL 1.99-6.95 (test code = 4161467791) IMM GRAN x10^3 (test 0.05 10*3/uL 0.00-0.06 code = 2040459334) LYMPH x10^3 (test code 0.68 10*3/uL 1.09-3.23 L = 731-0) MONO x10^3 (test code 0.36 10*3/uL 0.36-1.02 = 742-7) EOS x10^3 (test code = <0.03 0.06-0.53 L 711-2) BASO x10^3 (test code <0.03 0.01-0.09 = 704-7) Lab Interpretation Abnormal (test code = 92835-3) [id number] 09:14:11 Test Item Value Reference Interpretation Comments Range TROPONIN I (test 0.061 ng/mL See_Comment H [Automated code = 0643854522) message] The system which generated this result [...] biotin. Lab Interpretation Abnormal (test code = 26521-7) [facility] 09:02:46 Test Item Value Reference Range Interpretation Comments MAGNESIUM (test code = 8442656792) 2.0 mg/dL 1.7-2.4 Lab Interpretation (test code = Normal 16437-1) [facility] (NA, K, CL, CO2, GLUCOSE, BUN, CREATININE, CA)2021-09-06 09:02:26 Test Item Value Reference Range Interpretation Comments NA (test code = 138 mmol/L 135-145 5901616616) K (test code = 5.2 mmol/L 3.5-5.0 H 0986374349) CL (test code = 112 mmol/L 98-108 H 4862654097) CO2 TOTAL (test code = 21 mmol/L 23-31 L 7635855274) AGAP (test code = 2-16 5622258362) BUN (test code = 51 mg/dL 7-23 H 7207973074) GLUCOSE (test code = 137 mg/dL 70-110 H 7704384460) CREATININE (test code = 3.15 mg/dL 0.60-1.25 H 6028398124) CALCIUM (test code = 9.1 mg/dL 8.6-10.6 8165782810) eGFR (test code = mL/min/1.73m2 4733488234) RADHA (test code = RADHA) Association of [...] tests). Lab Interpretation Abnormal (test code = 57504-6) [facility] 09:02:26 Test Item Value Reference Range Interpretation Comments PHOSPHORUS (test code = 0825820385) 3.4 mg/dL 2.5-5.0 Lab Interpretation (test code = Normal 25258-8) [facility] GLUCOSE (AUTOMATED)2021-09-06 02:58:54 Test Item Value Reference Range Interpretation Comments POCT GLU (test code = 1142119269) 229 mg/dL 70-110 H Lab Interpretation (test code = Abnormal 92905-3) [facility] CenterVancomycin Random [id number] 23:36:47 Test Item Value Reference Range Interpretation Comments VANCO RANDOM (test code = 7.6 ug/mL 4993551758) [facility] GLUCOSE (AUTOMATED)2021-09-05 22:23:59 Test Item Value Reference Range Interpretation Comments POCT GLU (test code = 6695413379) 307 mg/dL 70-110 H Lab Interpretation (test code = Abnormal 81386-6) [facility] GLUCOSE (AUTOMATED)2021-09-05 17:43:53 Test Item Value Reference Range Interpretation Comments POCT GLU (test code = 6429413560) 133 mg/dL 70-110 H Lab Interpretation (test code = Abnormal 19971-0) [facility]AL [id number] 17:02:17 Test Item Value Reference Range Interpretation Comments NT-proBNP (test code 4570 pg/mL See_Comment H [Autom ated = 1749035098) message] The system which generated this result transmitted reference range : <=450. The reference range was not used to interpret this result as normal/abnormal . RADHA (test code = RADHA) Biotin has been reported to cause a negative bias, interpret results relative to patient's use of biotin. Lab Interpretation Abnormal (test code = 98556-1) [facility] METABOLIC PANEL (NA, K, CL, CO2, GLUCOSE, BUN, CREATININE, CA)2021-09-05 16:53:35 Test Item Value Reference Range Interpretation Comments NA (test code = 138 mmol/L 135-145 4278718410) K (test code = 4.8 mmol/L 3.5-5.0 5625482004) CL (test code = 110 mmol/L 98-108 H 6577128928) CO2 TOTAL (test code = 23 mmol/L 23-31 9053028570) AGAP (test code = 2-16 9858648973) BUN (test code = 50 mg/dL 7-23 H 2419485474) GLUCOSE (test code = 106 mg/dL 70-110 6666152535) CREATININE (test code = 3.36 mg/dL 0.60-1.25 H 1745651259) CALCIUM (test code = 8.9 mg/dL 8.6-10.6 5985689522) eGFR (test code = mL/min/1.73m2 9907620327) RADHA (test code = RADHA) Association of [...] tests). 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 No growth AA Previous Culture-Anaerobic See Blood Culture preli minary (test code = 67581-7) Workup for verifi ed result additional was Culture In information. 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 GLUCOSE (AUTOMATED)2021-09-05 13:47:13 Test Item Value Reference Range Interpretation Comments POCT GLU (test code = 7585942254) 116 mg/dL 70-110 H Lab Interpretation (test code = Abnormal 12808-5) [facility] GLUCOSE (AUTOMATED)2021-09-05 02:37:48 Test Item Value Reference Range Interpretation Comments POCT GLU (test code = 3624278907) 238 mg/dL 70-110 H Lab Interpretation (test code = Abnormal 07848-9) [facility] GLUCOSE (AUTOMATED)2021-09-04 23:23:12 Test Item Value Reference Range Interpretation Comments POCT GLU (test code = 7796246677) 211 mg/dL 70-110 H Lab Interpretation (test code = Abnormal 65850-0) [facility]AL[facility]2022-[facility]-25 18:15:57 Test Item Value Reference Range Interpretation Comments Procalcitonin (test 0.11 ng/mL <0.07 H code = 4375655012) RADHA (test code = RADHA) INTERPRETATION OF [...] lung abscess/empyema. For further information please refer to:[email or web address] Lab Interpretation Abnormal (test code = 08726-8) [facility] GLUCOSE (AUTOMATED)2021-09-04 17:52:04 Test Item Value Reference Range Interpretation Comments POCT GLU (test code = 5397000873) 182 mg/dL 70-110 H Lab Interpretation (test code = Abnormal 49864-1) [facility] GLUCOSE (AUTOMATED)2021-09-04 13:47:06 Test Item Value Reference Range Interpretation Comments POCT GLU (test code = 1060256337) 170 mg/dL 70-110 H Lab Interpretation (test code = Abnormal 22508-8) [facility] CenterTROPONIN [id number] 12:23:39 Test Item Value Reference Interpretation Comments Range TROPONIN I (test 0.046 ng/mL See_Comment H [Automated code = 6476454887) message] The system which generated this result transmitted reference range : <=0.034. The reference range was not used to interpret this result as normal/abnormal . RADHA (test code = Reference (Normal) ARDHA) Range (defined by the 99th percentile reference [...] biotin. Lab Interpretation Abnormal (test code = 02711-0) [facility]AL [id number] 12:20:23 Test Item Value Reference Range Interpretation Comments NT-proBNP (test code 6500 pg/mL See_Comment H [Autom ated = 2145549077) message] The system which generated this result transmitted reference range : <=450. The reference range was not used to interpret this result as normal/abnormal . RADHA (test code = RADHA) Biotin has been reported to cause a negative bias, interpret results relative to patient's use of biotin. Lab Interpretation Abnormal (test code = 16130-6) [facility] (NA, K, CL, CO2, GLUCOSE, BUN, CREATININE, CA)2021-09-04 12:12:37 Test Item Value Reference Range Interpretation Comments NA (test code = 137 mmol/L 135-145 7850660297) K (test code = 5.0 mmol/L 3.5-5.0 3053350701) CL (test code = 109 mmol/L 98-108 H 4522884587) CO2 TOTAL (test code = 21 mmol/L 23-31 L 2636027822) AGAP (test code = 2-16 7825731662) BUN (test code = 47 mg/dL 7-23 H 1057089717) GLUCOSE (test code = 192 mg/dL 70-110 H 7675842878) CREATININE (test code = 3.30 mg/dL 0.60-1.25 H 6882359966) CALCIUM (test code = 8.6 mg/dL 8.6-10.6 1003723024) eGFR (test code = mL/min/1.73m2 9754073961) RADHA (test code = RADHA) Association of [...] tests). Lab Interpretation Abnormal (test code = 47141-5) [facility] WITH [id number] 12:02:38 Test Item Value Reference Range Interpretation Comments WBC (test code = See_Comment H [Automated 3690-2) message] The system which generated this result transmit jose reference range : 4.20 - 10.70 10*3/?L. The reference range was not used to interpret this result as normal/abnormal . RBC (test code = See_Comment L [Automated 749-8) message] The system which generated this result [...] (test code = 53.5 fL 38.5-51.6 H 85590-7) RDW-CV (test code = 15.4 % 12.1-15.4 788-0) PLT (test code = See_Comment [Automated 777-3) message] The system which generated this result transmit jose reference range : 150 - 328 10*3/ ?L. The reference range was not u sed to interpret th is result as normal/abnormal . MPV (test code = 10.5 fL 9.8-13.0 23467-7) NRBC/100 WBC (test See_Comment [Automat ed code = 4153821605) message] The system which generated this result transmit jose reference range : 0.0 - 10.0 /100 WBCs. The reference range was not used to interpret this result as normal/abnormal . NRBC x10^3 (test code <0.01 See_Comment [Auto mated = 2891729213) message] The system which generated this result transmit jose reference range : 10*3/?L. The reference range was not used to interpret this result as normal/abnormal . GRAN MAT (NEUT) % 90.0 % (test code = 770-8) IMM GRAN % (test code 0.60 % = 8010549174) LYMPH % (test code = 5.0 % 736-9) MONO % (test code = 4.3 % 5905-5) EOS % (test code = 0.0 % 713-8) BASO % (test code = 0.1 % 706-2) GRAN MAT x10^3(ANC) 10.53 10*3/uL 1.99-6.95 H (test code = 7469663943) IMM GRAN x10^3 (test 0.07 10*3/uL 0.00-0.06 H code = 4488114248) LYMPH x10^3 (test code 0.58 10*3/uL 1.09-3.23 L = 731-0) MONO x10^3 (test code 0.50 10*3/uL 0.36-1.02 = 742-7) EOS x10^3 (test code = <0.03 0.06-0.53 L 711-2) BASO x10^3 (test code <0.03 0.01-0.09 = 704-7) Lab Interpretation Abnormal (test code = 53710-4) [facility] GLUCOSE (AUTOMATED)2021-09-04 11:55:48 Test Item Value Reference Range Interpretation Comments POCT GLU (test code = 4267223685) 189 mg/dL 70-110 H Lab Interpretation (test code = Abnormal 73688-9) [facility] GLUCOSE (AUTOMATED)2021-09-04 01:41:45 Test Item Value Reference Range Interpretation Comments POCT GLU (test code = 0888948107) 166 mg/dL 70-110 H Lab Interpretation (test code = Abnormal 62015-6) [facility] CenterVITAMIN B12, [id number] 23:08:05 Test Item Value Reference Range Interpretation Comments VIT B12 (test code = >1000 240-930 H 6915954992) RADHA (test code = RADHA) Biotin has been reported to cause a positive bias, interpret results relative to patient's use of biotin. Lab Interpretation (test Abnormal code = 48864-7) [facility] GLUCOSE (AUTOMATED)2021-09-03 22:54:51 Test Item Value Reference Range Interpretation Comments POCT GLU (test code = 2895289946) 229 mg/dL 70-110 H Lab Interpretation (test code = Abnormal 17003-2) [facility] [id number] 17:34:51 Test Item Value Reference Range Interpretation Comments FREE T3 (test code = 2089028051) 2.41 pg/mL 2.77-5.27 L Lab Interpretation (test code = Abnormal 53631-1) [facility] GLUCOSE (AUTOMATED)2021-09-03 17:31:09 Test Item Value Reference Range Interpretation Comments POCT GLU (test code = 6365103086) 246 mg/dL 70-110 H Lab Interpretation (test code = Abnormal 62974-9) [facility] [id number] 17:00:47 Test Item Value Reference Range Interpretation Comments FREE T4 (test code = See_Comment [Autom ated message] 3606085033) The system [employer] generated this result transmitted ref erence range: 0.78 - 2 .20 ng/dL:. The ref erence range was not u sed to interpret this result as normal/abnor mal. Lab Interpretation (test Normal code = 66852-8) [facility]21-[facility]-03 14:17:24 Test Item Value Reference Range Interpretation Comments POCT GLU (test code = 2502262615) 232 mg/dL 70-110 H Lab Interpretation (test code = Abnormal 73314-6) [facility] CenterTROPONIN [id number] 11:01:15 Test Item Value Reference Interpretation Comments Range TROPONIN I (test 0.035 ng/mL See_Comment H [Automated code = 7502305914) message] The system which generated this result [...] biotin. Lab Interpretation Abnormal (test code = 25695-6) [facility]N-[facility]AL [id number] 10:58:19 Test Item Value Reference Range Interpretation Comments NT-proBNP (test code 3920 pg/mL See_Comment H [Autom ated = 5897542562) message] The system which generated this result transmitted reference range : <=450. The reference range was not used to interpret this result as normal/abnormal . RADHA (test code = RADHA) Biotin has been reported to cause a negative bias, interpret results relative to patient's use of biotin. Lab Interpretation Abnormal (test code = 57532-6) [facility] CenterMagnesium [id number] 10:50:15 Test Item Value Reference Range Interpretation Comments MAGNESIUM (test code = 1330401936) 2.1 mg/dL 1.7-2.4 Lab Interpretation (test code = Normal 57393-1) [facility] CenterBasi Metabolic Panel (NA, K, CL, CO2, GLUCOSE, BUN, CREATININE, CA)2021-09-03 10:49:54 Test Item Value Reference Range Interpretation Comments NA (test code = 140 mmol/L 135-145 1931830356) K (test code = 5.0 mmol/L 3.5-5.0 1091653110) CL (test code = 112 mmol/L 98-108 H 1545136994) CO2 TOTAL (test code = 21 mmol/L 23-31 L 8523652402) AGAP (test code = 2-16 5640983199) BUN (test code = 41 mg/dL 7-23 H 6929411626) GLUCOSE (test code = 205 mg/dL 70-110 H 6775502626) CREATININE (test code = 2.95 mg/dL 0.60-1.25 H 5670102032) CALCIUM (test code = 8.6 mg/dL 8.6-10.6 8619364430) eGFR (test code = mL/min/1.73m2 8953728042) RADHA (test code = RADHA) Association of [...] tests). Lab Interpretation Abnormal (test code = 29601-5) [facility] CenterURIC [id number] 10:49:54 Test Item Value Reference Range Interpretation Comments URIC ACID (test code = 4244543180) 5.1 mg/dL 3.6-8.0 Lab Interpretation (test code = Normal 82854-8) [facility] CenterCB with [id number] 10:06:10 Test Item Value Reference Range Interpretation [...] (test code = 53.0 fL 38.5-51.6 H 01770-8) RDW-CV (test code = 15.2 % 12.1-15.4 788-0) PLT (test code = See_Comment [Automated 777-3) message] The sy stem which generated this result transmitted reference range : 150 - 328 10*3/ ?L. The reference r hilary was not used to interpret this result as normal/abnormal . MPV (test code = 10.1 fL 9.8-13.0 48889-1) NRBC/100 WBC (test See_Comment [Automat ed code = 0608681589) message] The system which generated this result transmitted reference range : 0.0 - 10.0 /100 WBCs. The refer ence range was not u sed to interpret th is result as normal/abnormal . NRBC x10^3 (test code <0.01 See_Comment [Auto mated = 4996870040) message] The s ystem which generated this result transmitted reference range : 10*3/?L. The reference range was not used to interpret this result as normal/abnormal . GRAN MAT (NEUT) % 94.4 % (test code = 770-8) IMM GRAN % (test code 0.50 % = 5991458531) LYMPH % (test code = 4.2 % 736-9) MONO % (test code = 0.9 % 5905-5) EOS % (test code = 0.0 % 713-8) BASO % (test code = 0.0 % 706-2) GRAN MAT x10^3(ANC) 5.20 10*3/uL 1.99-6.95 (test code = 3693597545) IMM GRAN x10^3 (test 0.03 10*3/uL 0.00-0.06 code = 3660609193) LYMPH x10^3 (test code 0.23 10*3/uL 1.09-3.23 L = 731-0) MONO x10^3 (test code 0.05 10*3/uL 0.36-1.02 L = 742-7) EOS x10^3 (test code = <0.03 0.06-0.53 L 711-2) BASO x10^3 (test code <0.03 0.01-0.09 = 704-7) Lab Interpretation Abnormal (test code = 00132-6) [facility]UR[facility] [id number] 07:55:03 Test Item Value Reference Range Interpretation Comments URIC ACID (test code = 2655029171) 5.3 mg/dL 3.6-8.0 Lab Interpretation (test code = Normal 22905-3) [facility] CenterPROCALCITONIN2022-01-24 07:43:46 Test Item Value Reference Range Interpretation Comments Procalcitonin (test 0.12 ng/mL <0.07 H code = 9769176578) RADHA (test code = RADHA) INTERPRETATION OF [...] lung abscess/empyema. For further information please refer to:[email or web address] Lab Interpretation Abnormal (test code = 44025-4) [facility] CenterTROPONIN [id number] 03:12:06 Test Item Value Reference Interpretation Comments Range TROPONIN I (test 0.029 ng/mL See_Comment [Automated code = 3974827422) message] The system which generated this result [...] biotin. Lab Interpretation Normal (test code = 09252-5) [facility] CenterPhosphorus [id number] 02:59:26 Test Item Value Reference Range Interpretation Comments PHOSPHORUS (test code = 6126743121) 3.5 mg/dL 2.5-5.0 Lab Interpretation (test code = Normal 33334-2) [facility] CenterFERRITIN [id number] 02:43:44 Test Item Value Reference Range Interpretation Comments FERRITIN (test code = 132.0 ng/mL 18.0-464.0 6077774665) RADHA (test code = RADHA) Biotin has been reported to cause a negative bias, interpret results relative to patient's use of biotin. Lab Interpretation (test Normal code = 45510-0) [facility] CenterGLYCOSYLATED HEMOGLOBIN (A1C)2021-09-03 02:22:16 Test Item Value Reference Range Interpretation Comments HGB A1C (test code = 6.3 % 4.0-5.7 H 4548-4) RADHA (test code = RADHA) Reference RangesNormal: <5.7%Prediabetes: 5.7 - 6.4%Diabetes: > 6.5% Lab Interpretation (test Abnormal code = 15987-5) [facility] CenterIRON [id number] 02:15:44 Test Item Value Reference Range Interpretation Comments IRON (test code = 6528000511) 21 ug/dL 50-160 L TIBC (test code = 4429001409) 294 ug/dL 250-410 % FE SAT (test code = 2953394566) 7 % 20-50 L Lab Interpretation (test code = Abnormal 96881-1) [facility] CenterTHYROID STIMULATING [id number] 01:17:43 Test Item Value Reference Range Interpretation Comments TSH (test code = See_Comment H [Automated message] 6889013150) The system [employer] generated this result transmitted ref erence range: 0.45 - 4 .70 mIU/L. The refe rence range was not u sed to interpret this result as normal/abnor mal. Lab Interpretation (test Abnormal code = 61184-5) [facility]2021-[facility]-02 22:51:11 Test Item Value Reference Range Interpretation Comments POCT GLU (test code = 4548789931) 169 mg/dL 70-110 H Lab Interpretation (test code = Abnormal 36272-8) [facility] GLUCOSE (AUTOMATED)2021-09-02 21:35:04 Test Item Value Reference Range Interpretation Comments POCT GLU (test code = 3882805874) 176 mg/dL 70-110 H Lab Interpretation (test code = Abnormal 48603-9) [facility] CenterAc[facility] Arterial Blood Gas.2021-09-02 16:59:20 Test Item Value Reference Range Interpretation Comments PH (test code = 2) 7.35-7.45 L PCO2 (test code = See_Comment [Automate d message] 5182818869) The system [employer] generated this result transmitted ref erence range: 35 - 45 mmHg. The reference r hilary was not used to interpret this result as normal/abnor mal. PO2 (test code = See_Comment L [Automated message] 3899323772) The system [employer] generated this result transmitted ref erence range: 80 - 100 mmHg. The reference r hilary was not used to interpret this result as normal/abnor mal. HCO3 (test code = See_Comment L [Automate d message] 4934808386) The system [employer] generated this result transmitted ref erence range: 22 - 26 mEq/L. The reference r hilary was not used to interpret this result as normal/abnor mal. BE (test code = See_Comment L [Automated message] 6447993764) The system [employer] generated this result transmitted ref erence range: -3.0 - 3 .0 mEq/L. The refe rence range was not u sed to interpret this result as normal/abnor mal. Lab Interpretation (test Abnormal code = 51887-7) [facility] CenterTROPONIN [id number] 16:13:32 Test Item Value Reference Interpretation Comments Range TROPONIN I (test 0.042 ng/mL See_Comment H [Automated code = 3071342984) message] The system which generated this result [...] biotin. Lab Interpretation Abnormal (test code = 16681-4) [facility] CenterN-TERMINAL [id number] 16:10:31 Test Item Value Reference Range Interpretation Comments NT-proBNP (test code 3090 pg/mL See_Comment H [Autom ated = 3005552424) message] The system which generated this result transmitted reference range : <=450. The reference range was not used to interpret this result as normal/abnormal . RADHA (test code = RADHA) Biotin has been reported to cause a negative bias, interpret results relative to patient's use of biotin. Lab Interpretation Abnormal (test code = 17782-2) [facility] METABOLIC PANEL (46827)2021-09-02 16:02:09 Test Item Value Reference Range Interpretation Comments NA (test code = 141 mmol/L 135-145 9362549429) K (test code = 5.3 mmol/L 3.5-5.0 H 4948797806) CL (test code = 113 mmol/L 98-108 H 6405114937) CO2 TOTAL (test code = 21 mmol/L 23-31 L 5658948023) AGAP (test code = 2-16 6457063983) BUN (test code = 37 mg/dL 7-23 H 6682161372) GLUCOSE (test code = 167 mg/dL 70-110 H 6162083250) CREATININE (test code = 2.91 mg/dL 0.60-1.25 H 2024421583) TOTAL BILI (test code = 0.5 mg/dL 0.1-1.2 2788024834) CALCIUM (test code = 8.6 mg/dL 8.6-10.6 9185036148) T PROTEIN (test code = 6.4 g/dL 6.3-8.2 9733625360) ALBUMIN (test code = 3.6 g/dL 3.5-5.0 2461161915) ALK PHOS (test code = 128 U/L 34-122 H 2980408288) ALTv (test code = 21 U/L 5-50 1742-6) AST(SGOT) (test code = 17 U/L 13-40 5576643791) eGFR (test code = mL/min/1.73m2 2947814048) RADHA (test code = RADHA) Association of [...] tests). Lab Interpretation Abnormal (test code = 47512-8) [facility] CenterLIPASE2022-[facility] 16:01:29 Test Item Value Reference Range Interpretation Comments LIPASE (test code = 6357324386) 102 U/L 0-220 Lab Interpretation (test code = Normal 14483-7) [facility] CenterACTIVATED PARTIAL THRMPLAS [id number] 15:59:08 Test Item Value Reference Range Interpretation Comments APTT Patient (test See_Comment [Automat ed code = 3173-2) message] The system which generated this result transmitted reference range : 23 - 38 Seconds . The reference range was not used to interpr et this result as normal/abnormal . RADHA (test code = RADHA) The [facility] patient population mean normal value for aPTT is 30 seconds. Lab Interpretation Normal (test code = 66882-3) [id number] 15:56:48 Test Item Value Reference Range Interpretation [...] tions. Lab Interpretation (test Normal code = 44511-5) [facility] WITH [id number] 15:48:46 Test Item Value Reference Range Interpretation [...] (test code = 54.7 fL 38.5-51.6 H 40962-3) RDW-CV (test code = 15.5 % 12.1-15.4 H 788-0) PLT (test code = See_Comment [Automated 777-3) message] The sy stem which generated this result transmitted reference range : 150 - 328 10*3/ ?L. The reference r hilary was not used to interpret this result as normal/abnormal . MPV (test code = 9.8 fL 9.8-13.0 29383-9) NRBC/100 WBC (test See_Comment [Automat ed code = 1866797540) message] The system which generated this result transmitted reference range : 0.0 - 10.0 /100 WBCs. The refer ence range was not u sed to interpret th is result as normal/abnormal . NRBC x10^3 (test code <0.01 See_Comment [Auto mated = [id number]) message] The s ystem which generated this result transmitted reference range : 10*3/?L. The reference range was not used to interpret this result as normal/abnormal . GRAN MAT (NEUT) % 76.7 % (test code = 770-8) IMM GRAN % (test code 0.40 % = 8946592545) LYMPH % (test code = 14.6 % 736-9) MONO % (test code = 6.4 % 5905-5) EOS % (test code = 1.5 % 713-8) BASO % (test code = 0.4 % 706-2) GRAN MAT x10^3(ANC) 6.25 10*3/uL 1.99-6.95 (test code = 7401025216) IMM GRAN x10^3 (test 0.03 10*3/uL 0.00-0.06 code = 3582311029) LYMPH x10^3 (test code 1.19 10*3/uL 1.09-3.23 = 731-0) MONO x10^3 (test code 0.52 10*3/uL 0.36-1.02 = 742-7) EOS x10^3 (test code = 0.12 10*3/uL 0.06-0.53 711-2) BASO x10^3 (test code 0.03 10*3/uL 0.01-0.09 = 704-7) Lab Interpretation Abnormal (test code = 70401-2) [facility]"
[2023-03-09 05:17] LABS: Absolute Lymphocytes (CBC) 1.6 K/uL (0.7-4.9); Hematocrit 27.7 % (39.6-49.0); Lymphocytes % 16.1 % (15.3-44.8); MCV 94.8 fL (80-100); MPV 6.8 fL (7.6-11.3); RBC Red Blood Cell Count 2.93 M/uL (4.33-5.43)
[2023-03-09 05:20] LABS: Protime INR 1.09
[2023-03-09] MEDS ORDERED: ALBUTEROL 2.5 MG/3 ML NEB SOL ONE (05:28)
[2023-03-09] MEDS ORDERED: ONDANSETRON 4 MG (ODT) TAB ONE (05:28)
[2023-03-09] MEDS ORDERED: MORPHINE 2 MG/ML SYR ONE (05:28)
[2023-03-09] MEDS ORDERED: METHYLPREDNISOLONE 40 MG INJ ONE (05:31)
[2023-03-09 05:38] LABS: Albumin 2.2 g/dL (3.4-5.0); Bilirubin Direct 0.1 mg/dL (0-0.2); Bilirubin Indirect, Calculated 0.1 mg/dL (0.2-0.8); Bilirubin Total 0.2 mg/dL (0.2-1.0); Potassium 5.1 mEq/L (3.5-5.1); Protein, Total 8.1 g/dL (6.4-8.2)
[2023-03-09 05:42] LABS: Troponin High Sensitivity 69.7 pg/mL (<58.9)
[2023-03-09] MEDS ORDERED: dilTIAZem HCL 25 MG/5 ML VIAL IV ONE (05:58)
[2023-03-09 06:55] LABS: SARS-CoV-2 Antigen Rapid Res Negative (Negative)
--- NOTE | 2023-03-09 07:00 | ER ---
Nurse's Notes [facility] Name: Frank López Age: 77 yrs Sex: Male : 1945 Arrival Date: 03/09/2023 Time: 04:35 Bed 7 Private MD: Diagnosis: Abdominal aortic aneurysm symptomatic, elevated troponin, end-stage renal disease on dialysis, volume overload, COPD with acute exacerbation, acute abdominal pain with radiation to the back Presentation: 03/09 04:47 Chief complaint: EMS states: Toned out for difficulty breathing, RLQ, and back pain, ll3 audible wheezing noted, EMS states pt was 92% on RA. Coronavirus screen: Vaccine status: Patient reports receiving the 2nd dose of the covid vaccine. cough unrelated to allergies, difficulty breathing. Ebola Screen: No symptoms or risks identified at this time. Initial Sepsis Screen: Does the patient meet any 2 criteria? HR > 90 bpm. Yes Does the patient have a suspected source of infection? No. Patient's initial sepsis screen is negative. Risk Assessment: Do you want to hurt yourself or someone else? Patient reports no desire to harm self or others. Onset of symptoms was March 09, 2023. Care prior to arrival: Medication(s) given: Albuterol Neb x 1, Atrovent Neb x 1. 04:47 Method Of Arrival: EMS: [facility] 3 04:47 Acuity: GAVI 3 ll3 Triage Assessment: 04:51 General: Appears comfortable, Behavior is calm, cooperative. Pain: Complains of pain in ll3 back and right lower quadrant Pain does not radiate. Pain currently is 8 out of 10 on a pain scale. Pain began 2-3 days ago. Is continuous. Cardiovascular: No deficits noted. Denies chest pain. Respiratory: Reports shortness of breath cough that is labored breathing Respiratory effort is even, unlabored, Respiratory pattern is regular, symmetrical, Breath sounds with wheezes bilaterally. Onset: The symptoms/episode began/occurred States has been feeling bad for 2 weeks, the patient has mild shortness of breath. GI: Abdomen is round non-distended, Reports lower abdominal pain. Derm: Skin is pink, warm \T\ dry. Historical: - Allergies: 04:51 Codeine; ll3 04:51 Sulfa (Sulfonamide Antibiotics); ll3 - PMHx: 04:51 Atrial fibrillation; Congestive heart failure; COPD; Diabetes - NIDDM; Dialysis- ll3 T/Th/Sat; High Cholesterol; Hypertension; - PSHx: 04:51 Nephrectomy; ll3 - Immunization history:: Client reports receiving the 2nd dose of the Covid vaccine. - Social history:: Smoking status: Patient denies any tobacco usage or history of. - Family history:: not pertinent. Screenin:56 [facility] ED Fall Risk Assessment (Adult) History of falling in the last 3 months, kd3 including since admission No falls in past 3 months (0 pts) Confusion or Disorientation No (0 pts) Intoxicated or Sedated No (0 pts) Impaired Gait No (0 pts) Mobility Assist Device Used No (0 pt) Altered Elimination No (0 pt) Score/Fall Risk Level 0 - 2 = Low Risk Maintained a safe environment. Abuse screen: Denies threats or abuse. Denies injuries from another. Nutritional screening: No deficits noted. On no prescribed diet Difficulty chewing/swallowing? No Tuberculosis screening: No symptoms or risk factors identified. Assessment: 04:51 General: See triage assessment. ll3 05:57 Cardiovascular: Rhythm is sinus rhythm with unifocal PVCs. kd3 05:57 Respiratory: Airway is patent Trachea midline Respiratory effort is even, unlabored, kd3 Respiratory pattern is regular, symmetrical, Breath sounds with wheezes bilaterally. 08:00 Reassessment: Report called to Joseph GUERRERO at [facility]. ph Vital Signs: 04:47 BP 149 / 74; Pulse 94; Resp 17; Temp 97.7(TE); Pulse Ox 99% on 2 lpm NC; Weight 81 kg ll3 (R); Height 5 ft. 9 in. (R); Pain 8/10; 05:45 BP 157 / 74; Pulse 97; Resp 18; Pulse Ox 100% ; kd3 05:56 BP 147 / 79; Pulse 91; Resp 19; Pulse Ox 100% on Nebulizer Mask; kd3 06:43 BP 133 / 67; Pulse 76; Resp 19; Pulse Ox 99% on 3 lpm NC; kd3 07:58 BP 107 / 55; Pulse 66; Resp 18; Temp 97.8; Pulse Ox 100% 3 lpm ; ph 04:47 Body Mass Index 26.37 (81.00 kg, 175.26 cm) ll3 04:47 Pain Scale: Adult 3 ED Course: 04:38 Patient arrived in ED. vc1 04:39 Jorge Pappas MD is Attending Physician. sp4 04:51 Triage completed. ll3 04:51 Arm band placed on Patient placed in an exam room, on a stretcher, on cardiac nurse specialist, ll3 on pulse oximetry. 05:05 Ilene Medley, RN is Primary Nurse. kd3 05:13 Initial lab(s) drawn, by co, sent to lab. Inserted saline lock: 20 gauge in right ll3 antecubital area, using aseptic technique. Blood collected. 05:36 CT Abd/Pelvis - Without Contrast In Process Unspecified. EDMS 05:37 Chest Single View In Process Unspecified. EDMS 05:56 Patient has correct armband on for positive identification. Provided Education on: . kd3 06:29 initiated a transfer with Christine from the [facility] Transfer [place]. eb 06:[address] Gu the cardiovascular surgeon exchange consultant for [facility] with Dr. jacky Pappas for patient transfer consultation. 06:44 SARS RAPID Sent. kd3 07:45 administrative approval given by Bhakti Stuart/ patient has been accepted to [facility] 2 C 24/ Dr. [place] has accepted the patient in transfer/ report to be called to the transfer center at [phone]. 08:01 No provider procedures requiring assistance completed. ph 08:38 Patient transferred, IV remains in place. ph Administered Medications: 05:43 Drug: Ondansetron PO 4 mg Route: PO; kd3 05:44 Drug: morphine IVP or IV 2 mg Route: IVP; Infused Over: 4 mins; Site: right antecubital;kd3 05:44 Drug: MethylPrednisoLONE IVP 125 mg Route: IVP; Site: right antecubital; kd3 05:44 Drug: Albuterol Inhalation 2.5 mg Route: Inhalation; kd3 05:55 Drug: Diltiazem IVP 10 mg Route: IVP; Site: right antecubital; kd3 Medication: 05:57 VIS not applicable for this client. kd3 Outcome: 06:59 ER care complete, transfer ordered by . sp4 08:37 Transferred by [facility] [place] to [facility]. ph 08:37 Condition: stable 08:37 Instructed on the need for transfer. 08:39 Patient left the ED. ph Signatures: Dispatcher [employer] Estefany Mclean RN RN [facility] Lynsea RN RN ll3 Ilene Medley RN RN kd3 Mary Ann Marshall RN RN vc1 Jorge Pappas MD MD sp4 Corrections: (The following items were deleted from the chart) 05:00 04:59 General: See triage assessment. ll3 ll3
--- NOTE | 2023-03-09 07:01 | EDPHYS ---
Physician Documentation [facility] Name: Frank López Age: 77 yrs Sex: Male : 1945 Arrival Date: 03/09/2023 Time: 04:35 Bed 7 Private MD: ED Physician Jorge Pappas HPI: 03/09 04:40 This 77 yrs old Male presents to ER via Unassigned with complaints of sp4 Shortness Of Breath. 04:48 Medical history includes - Atrial fibrillation; Congestive heart failure; Diabetes - sp4 NIDDM; COPD; High Cholesterol; Hypertension; Dialysis- T/TH/SAT;. 06:16 Last admission record from 10/26/2022 --patient was admitted for severe sepsis sp4 secondary to E. coli pneumonia. Acute on chronic COPD with exacerbation, chronic respiratory failure with hypoxia, paroxysmal atrial fibrillation, on chronic anticoagulation, diabetes type 2, end-stage renal disease, chronic diastolic heart failure, coronary artery disease, peripheral arterial disease, hypertension, hyperlipidemia. Patient is on home oxygen 2 L [id number].. Patient's medications include atorvastatin, finasteride, gabapentin, Paxil, allopurinol, budesonide/formoterol, cholecalciferol, cyanocobalamin, ipratropium albuterol, apixaban 2.5 mg p.o. twice daily, furosemide, albuterol, ipratropium, tamsulosin, arformoterol, Brovana, cholecalciferol, ipratropium, melatonin, midodrine, heparin, hydrocodone . Patient presents with worsening shortness of breath starting this morning associated with orthopnea. Last dialysis was Friday which is yesterday. Patient was board turner is Dr. Carrillo. Patient's additional complaint is mid abdominal pain which has started this morning as well.. Historical: - Allergies: 04:51 Codeine; ll3 04:51 Sulfa (Sulfonamide Antibiotics); ll3 - PMHx: 04:51 Atrial fibrillation; Congestive heart failure; COPD; Diabetes - NIDDM; Dialysis- ll3 T/Th/Sat; High Cholesterol; Hypertension; - PSHx: 04:51 Nephrectomy; ll3 - Immunization history:: Client reports receiving the 2nd dose of the Covid vaccine. - Social history:: Smoking status: Patient denies any tobacco usage or history of. - Family history:: not pertinent. ROS: 06:16 Constitutional: Negative for fever, chills, and weight loss, Respiratory: Negative for sp4 cough, wheezing, and pleuritic chest pain, positive for dyspnea and orthopnea Abdomen/GI: Negative for nausea, vomiting, diarrhea, and constipation, positive acute onset mid abdominal pain. 06:16 All other systems are negative. Exam: 06:41 Constitutional: This is a well developed, well nourished patient who is awake, alert, sp4 frail elderly man in no significant distress but uncomfortable appearing, right chest wall dialysis permacath in place. Left upper arm hemodialysis fistula has palpable thrill but is nonfunctional as reported by the patient. Signs of moderate physical deconditioning also generalized pallor Head/Face: Normocephalic, atraumatic. Eyes: Pupils equal round and reactive to light, extra-ocular motions intact. Lids and lashes normal. Conjunctiva and sclera are not injected. Cornea within normal limits. Periorbital areas with no swelling, redness, or edema. ENT: Nares patent. No nasal discharge, no septal abnormalities noted. Tympanic membranes are normal and external auditory canals are clear. Oropharynx with no redness, swelling, or masses, exudates, or evidence of obstruction, uvula midline. Mucous membranes moist. Neck: Trachea midline, no thyromegaly or masses palpated, and no cervical lymphadenopathy. Supple, full range of motion without nuchal rigidity, or vertebral point tenderness. Chest/axilla: Normal chest wall appearance and motion. Nontender with no deformity. No lesions are appreciated. Cardiovascular: Regular rate and rhythm with a normal S1 and S2. No gallops, murmurs, or rubs. Normal PMI, no JVD. No pulse deficits. Respiratory: Lungs have equal breath sounds bilaterally, clear to auscultation and percussion. No rales, rhonchi or wheezes noted. No increased work of breathing, no retractions or nasal flaring. Abdomen/GI: Soft, non-tender, with normal bowel sounds. No distension or tympany. No guarding or rebound. No evidence of tenderness throughout. Back: No spinal tenderness. No costovertebral tenderness. Skin: Warm, dry with normal turgor. Pale in appearance, with no rashes, no lesions, and no evidence of cellulitis. MS/ Extremity: Pulses equal, no cyanosis. Neurovascular intact. Full, normal range of motion. Neuro: Awake and alert, GCS 15, oriented to person, place, time, and situation. Cranial nerves II-XII grossly intact. Motor strength 5/5 in all extremities. Sensory grossly intact. Psych: Awake, alert, with orientation to person, place and time. Behavior, mood, and affect are within normal limits 06:41 ECG was reviewed by the Attending Physician. There is normal sinus rhythm at the rate sp4 of 99 with some mild sinus arrhythmia. EKG time 0 518. There is no ST elevation or depression, no ectopy, overall EKG is unremarkable Vital Signs: 04:47 BP 149 / 74; Pulse 94; Resp 17; Temp 97.7(TE); Pulse Ox 99% on 2 lpm NC; Weight 81 kg ll3 (R); Height 5 ft. 9 in. (R); Pain 8/10; 05:45 BP 157 / 74; Pulse 97; Resp 18; Pulse Ox 100% ; kd3 05:56 BP 147 / 79; Pulse 91; Resp 19; Pulse Ox 100% on Nebulizer Mask; kd3 06:43 BP 133 / 67; Pulse 76; Resp 19; Pulse Ox 99% on 3 lpm NC; kd3 07:58 BP 107 / 55; Pulse 66; Resp 18; Temp 97.8; Pulse Ox 100% 3 lpm ; ph 04:47 Body Mass Index 26.37 (81.00 kg, 175.26 cm) ll3 04:47 Pain Scale: Adult ll3 MDM: 04:40 Patient medically screened. sp4 05:59 ED course: EXAM: XR Chest, 1 View CLINICAL HISTORY: The patient is 77 years old and is sp4 Male; SOB TECHNIQUE: Frontal view of the chest. COMPARISON: No relevant prior studies available. FINDINGS: Lungs: Prominent interstitial markings suggestive of interstitial edema. Pleural space: Unremarkable. No pneumothorax. Heart: Unremarkable. Mediastinum: Unremarkable. Bones/joints: Disc space narrowing with degenerative endplate changes in the spine. Tubes, lines and devices: Right central venous catheter with tip at the cavoatrial junction. IMPRESSION: Prominent interstitial markings suggestive of interstitial edema. 06:16 ED course: EXAM: CTAbdomen and Pelvis Without Intravenous Contrast CLINICAL HISTORY: sp4 The patient is 77 years old and is Male; ABD PAIN TECHNIQUE: Axial computed tomography images of the abdomen and pelvis without intravenous contrast. Sagittal and coronal reformatted images were created and reviewed. This CT exam was performed using one or more of the following dose reduction techniques: automated exposure control, adjustment of the mA and/or kV according to patient size, and/or use of iterative reconstruction technique. COMPARISON: No relevant prior studies available. FINDINGS: Lung bases: Linear scarring left lower lobe. ABDOMEN: Liver: Unremarkable. Gallbladder and bile ducts: Multiple small stones in the gallbladder. No ductal dilation. Pancreas: Unremarkable. No ductal dilation. Spleen: Unremarkable. No splenomegaly. Adrenals: Unremarkable. No mass. Kidneys and ureters: Right hydronephrosis without ureter stone. Left kidney is absent. Stomach and bowel: No bowel dilatation or obstruction. No bowel wall thickening. Scattered colonic diverticulosis. PELVIS: Appendix: The visualized appendix is normal. No pericecal inflammation to suggest acute appendicitis. Bladder: Asymmetric right bladder wall thickening suspicious for mass. No stones. Reproductive: Unremarkable as visualized. ABDOMEN and PELVIS: Intraperitoneal space: Unremarkable. No free air. No significant fluid collection. Bones/joints: Degenerative changes in the hips, mild. Small areas of osteonecrosis in the femoral heads. Multilevel degenerative disc disease in the lumbar spine. Moderate central canal stenosis L3-4 and L4-5. No acute fracture. No dislocation. Soft tissues: Surgical clips along the left pelvic sidewall. Vasculature: Fusiform and saccular infrarenal abdominal aortic aneurysm, with the saccular component located just posterior to the IVC. At this level, the aorta measures 6.7 cm in transverse dimension and 5.2 cm AP dimension. No evidence of leak/rupture. Moderate aortoiliac atherosclerotic calcification. Lymph nodes: No pathologically enlarged lymph nodes. IMPRESSION: 1. Fusiform and saccular infrarenal abdominal aortic aneurysm, with the saccular component located just posterior to the IVC. At this level, the aorta measures 6.7 cm in transverse dimension and 5.2 cm AP dimension. No evidence of leak/rupture. Recommend referral to a vascular specialist. 2. Asymmetric right bladder wall thickening suspicious for mass. Urology follow-up recommended. 3. Right hydronephrosis without ureter stone. 4. Left kidney is absent. 5. Cholelithiasis. 6. Additional non-emergent findings as above. . 06:50 Data reviewed: vital signs, nurses notes, EMS record, old medical records, lab test sp4 result(s), EKG, radiologic studies, CT scan, plain films. Consideration of Admission/Observation Patient was admitted/placed on observation. Escalation of care including admission/observation considered. Management of patient was discussed with the following: Associate Accountant: Vascular Surgeon Dr. Gu [facility]. ED course: Patient has symptomatic abdominal aortic aneurysm with abdominal pain with radiation into the back that woke him up this morning. Patient's abdominal aortic aneurysm measures 6.7 cm x 5.2 cm in greatest dimension. At this time patient warrants assessment by vascular surgeon. Dr. Noble with vascular surgery reported patient may be eligible for stent. Patient is stable for transfer with ground EMS to [facility]. Patient is full code. 03/09 04:40 Order name: Basic Metabolic Panel; Complete Time: 05:58 sp4 03/09 04:40 Order name: CBC with Diff; Complete Time: 05:58 sp4 03/09 04:40 Order name: LFT's; Complete Time: 05:58 sp4 03/09 04:40 Order name: Magnesium; Complete Time: 05:58 sp4 03/09 04:40 Order name: NT PRO-BNP; Complete Time: 05:58 sp4 03/09 04:40 Order name: PT-INR; Complete Time: 05:58 sp4 03/09 04:40 Order name: Troponin HS; Complete Time: 05:58 sp4 03/09 06:31 Order name: SARS RAPID; Complete Time: 07:00 eb 03/09 04:50 Order name: CT Abd/Pelvis - Without Contrast sp4 03/09 04:59 Order name: Chest Single View EDNM 03/09 04:40 Order name: EKG; Complete Time: 04:58 sp4 03/09 04:40 Order name: Cardiac monitoring; Complete Time: 04:46 sp4 03/09 04:40 Order name: EKG - Nurse/Tech; Complete Time: 05:24 sp4 03/09 04:40 Order name: IV Saline Lock; Complete Time: 05:13 sp4 03/09 04:40 Order name: Labs collected and sent; Complete Time: 05:13 sp4 03/09 04:40 Order name: O2 Per Protocol; Complete Time: 04:46 sp4 03/09 04:40 Order name: O2 Sat Monitoring; Complete Time: 04:46 sp4 EC:41 Rate is 99 beats/min. Rhythm is regular, Sinus arrythmia. QRS Moss is Normal. DC sp4 interval is normal. QRS interval is normal. QT interval is normal. T waves are Normal. Clinical impression: No evidence of ischemia. Interpreted by me. Administered Medications: 05:43 Drug: Ondansetron PO 4 mg Route: PO; kd3 05:44 Drug: morphine IVP or IV 2 mg Route: IVP; Infused Over: 4 mins; Site: right antecubital;kd3 05:44 Drug: MethylPrednisoLONE IVP 125 mg Route: IVP; Site: right antecubital; kd3 05:44 Drug: Albuterol Inhalation 2.5 mg Route: Inhalation; kd3 05:55 Drug: Diltiazem IVP 10 mg Route: IVP; Site: right antecubital; kd3 Disposition Summary: 03/09/23 06:59 Transfer Ordered Transfer Location: [facility] sp4 Reason: Higher level of care sp4 Condition: Fair sp4 Problem: new sp4 Symptoms: are unchanged sp4 Accepting Physician: Transfer to [facility] Dr. Gu (03/09/23 08:39) ph Diagnosis - Abdominal aortic aneurysm symptomatic, elevated troponin, end-stage renal disease sp4 on dialysis, volume overload, COPD with acute exacerbation, acute abdominal pain with radiation to the back Forms: - Medication Reconciliation Form sp4 - SBAR form sp4 Signatures: Dispatcher [employer] EDNM Estefany Hanks RN RN ph Aydee Noel RN RN [id number] Ilene Medley RN RN kd3 Jorge Pappas MD MD sp4 Corrections: (The following items were deleted from the chart) 05:14 04:58 Chest Single View+RAD.RAD.BRZ ordered. [facility] EDNM 06:29 06:16 Patient presents with worsening shortness of breath starting this morning sp4 associated with orthopnea. Last dialysis was Friday which is yesterday. Patient was board turner is Dr. Carrillo. . sp4 08:39 06:59 Transfer to [facility] Dr. Gu sp4 ph
[2023-03-09 09:19] VITALS: BP 107/55; TEMP 97.8; O2SAT 100
--- NOTE | 2023-03-09 17:47 | RAD REPORT ---
EXAM DESCRIPTION: RAD - Chest Single View - 03/09/2023 5:35 am CLINICAL HISTORY: The patient is 77 years old and is Male; SOB TECHNIQUE: Frontal view of the chest. COMPARISON: No relevant prior studies available. FINDINGS: Lungs: Prominent interstitial markings suggestive of interstitial edema. Pleural space: Unremarkable. No pneumothorax. Heart: Unremarkable. Mediastinum: Unremarkable. Bones/joints: Disc space narrowing with degenerative endplate changes in the spine. Tubes, lines and devices: Right central venous catheter with tip at the cavoatrial junction. IMPRESSION: Prominent interstitial markings suggestive of interstitial edema. Electronically signed by: Babak Martin MD 03/09/2023 5:49 AM CDT Due to temporary technical issues with the PACS/Fluency reporting system, reports are being signed by the in house radiologists without review as a courtesy to insure prompt reporting. The interpreting radiologist is fully responsible for the content of the report.
--- NOTE | 2023-03-09 17:56 | RAD REPORT ---
EXAM DESCRIPTION: CT - Abdomen Pelvis Wo Contrast - 03/09/2023 6:45 am ADDENDUM #1 THIS REPORT CONTAINS FINDINGS THAT MAY BE CRITICAL TO PATIENT CARE: The findings were verbally discus sed via telephone conference with Dr. Jorge Pappas 6:20 AM central time March 09, 2023. The res ults were acknowledged and understood. Electronically signed by: Rachel Grijalva MD 03/09/2023 6:25 AM CDT End of Addendum EXAM DESCRIPTION: CT Abdomen and Pelvis Without Intravenous Contrast CLINICAL HISTORY: The patient is 77 years old and is Male; ABD PAIN TECHNIQUE: Axial computed tomography images of the abdomen and pelvis without intravenous contrast. Sagittal and coronal reformatted images were created and reviewed. This CT exam was performed usi ng one or more of the following dose reduction techniques: automated exposure control, adjustment o f the mA and/or kV according to patient size, and/or use of iterative reconstruction technique. COMPARISON: No relevant prior studies available. FINDINGS: Lung bases: Linear scarring left lower lobe. ABDOMEN: Liver: Unremarkable. Gallbladder and bile ducts: Multiple small stones in the gallbladder. No ductal dilation. Pancreas: Unremarkable. No ductal dilation. Spleen: Unremarkable. No splenomegaly. Adrenals: Unremarkable. No mass. Kidneys and ureters: Right hydronephrosis without ureter stone. Left kidney is absent. Stomach and bowel: No bowel dilatation or obstruction. No bowel wall thickening. Scattered colonic diverticulosis. PELVIS: Appendix: The visualized appendix is normal. No pericecal inflammation to suggest acute appendici tis. Bladder: Asymmetric right bladder wall thickening suspicious for mass. No stones. Reproductive: Unremarkable as visualized. ABDOMEN and PELVIS: Intraperitoneal space: Unremarkable. No free air. No significant fluid collection. Bones/joints: Degenerative changes in the hips, mild. Small areas of osteonecrosis in the femoral heads. Multilevel degenerative disc disease in the lumbar spine. Moderate central canal stenosis L3- 4 and L4-5. No acute fracture. No dislocation. Soft tissues: Surgical clips along the left pelvic sidewall. Vasculature: Fusiform and saccular infrarenal abdominal aortic aneurysm, with the saccular compon ent located just posterior to the IVC. At this level, the aorta measures 6.7 cm in transverse dimensi on and 5.2 cm AP dimension. No evidence of leak/rupture. Moderate aortoiliac atherosclerotic calcification. Lymph nodes: No pathologically enlarged lymph nodes. IMPRESSION: 1. Fusiform and saccular infrarenal abdominal aortic aneurysm, with the saccular compo nent located just posterior to the IVC. At this level, the aorta measures 6.7 cm in transverse dimens ion and 5.2 cm AP dimension. No evidence of leak/rupture. Recommend referral to a vascular specialist. Reference: J Am Michael Radiol 2013;10:789-794. 2. Asymmetric right bladder wall thickening suspicious for mass. Urology follow-up recommended. 3. Right hydronephrosis without ureter stone. 4. Left kidney is absent. 5. Cholelithiasis. 6. Additional non-emergent findings as above. Electronically signed by: Rachel Grijalva MD 03/09/2023 6:15 AM CDT Due to temporary technical issues with the PACS/Fluency reporting system, reports are being signed by the in house radiologists without review as a courtesy to insure prompt reporting. The interpreting radiologist is fully responsible for the content of the report.
--- NOTE | 2023-03-10 18:53 | EKG ---
Test Date: 2023-03-09 Test Time: 05:18:35 Custodial Officer: JORGE MEASUREMENT RESULTS: Intervals: Rate: 99 IN: 190 QRSD: 86 QT: 356 QTc: 456 [place]: P: 80 IN: 190 QRS: 81 T: 83 INTERPRETIVE STATEMENTS: Normal sinus rhythm with sinus arrhythmia Normal ECG Compared to ECG 12/05/2022 17:07:45 Sinus tachycardia no longer present Electronically Signed On 03-10-23 18:49:06 CDT by Deepak Goodrich
== END 2023-03-09 08:39 | disposition short-term general hospital (02) ==
LOC: ER 04:35
DX: J44.1 Chronic obstructive pulmonary disease with (acute) exacerbation (principal); E87.70 Fluid overload, unspecified; R77.8 Other specified abnormalities of plasma proteins; I71.40 Abdominal aortic aneurysm, without rupture, unspecified; R10.9 Unspecified abdominal pain; E11.22 Type 2 diabetes mellitus with diabetic chronic kidney disease; I13.2 Hypertensive heart and chronic kidney disease with heart failure and with stage 5 chronic kidney disease, or end stage renal disease; I50.9 Heart failure, unspecified; N18.6 End stage renal disease; Z99.2 Dependence on renal dialysis; Z20.822 Contact with and (suspected) exposure to COVID-19; Z88.2 Allergy status to sulfonamides; Z88.5 Allergy status to narcotic agent
CPT/HCPCS: 93005; 85025; 80048; 36415; 83735; 85610; 80076; 84484; 83880; 74176; 71045; 87811; Q0162; J7613; J2270; J2920; 96374; 96375; 99285

== ENCOUNTER 2023-03-24 06:00 | Observation (INO) | payer OTHER ==
--- OUTSIDE RECORDS SUMMARY | 2023-03-24 06:12 | XMS REPORT | Continuity of Care Document ---
:1945 Author Organization [facility] t Address [address] [facility] [address] [place] [address] Care Team Providers Name Role Phone [facility] Primary Care Physician Unavailable JAYE BEACH Attending Clinician Unavailable ETIENNE TAYLOR Attending Clinician Unavailable Jaye Beach MD Attending Clinician [phone] Almita RIBEIRO, Nessa Alcala Attending Clinician Etienne Taylor MD Attending Clinician MARGIE MORRIS Attending Clinician Unavailable Doctor Unassigned, [place] Attending Clinician Unavailable ANGIE MARTINEZ Attending Clinician Unavailable Nyla GUERRERO, Hemanth [place]lam[place] Attending Clinician Unavailable LUCAS WOODWARD Attending Clinician Unavailable Quinn Ibarra MD Attending Clinician Lucas Woodward MD Attending Clinician JAYE BEACH Admitting Clinician Unavailable ANGIE MARTINEZ Admitting Clinician Unavailable LUCAS WOODWARD Admitting Clinician Unavailable Lucas Woodward MD Admitting Clinician Payers Payer Name Policy Type Policy Number Effective Date Expiration Date Stefania calhoun MEDICARE A B [id number] 2005 00:00:00 [facility] [id number] 2022 CHOICE CARD AND 00:00:00 PC3 MEDICARE PART A [id number] 2005 \\T\\ B 00:00:00 [id number] 1959 00:00:00 WPS-VACAA C1 [id number] [facility] WP-VACAA C1 [id number] [facility] Problems Condition Condition Condition Status Onset Resolution Last Treating Co mments Source Name Details Category Date Date Treatment Clinician Date Chronic Chronic Disease Recur[facility] respirator respirator nce 8-11 Erika kes y failure y failure 00:00: [facility] with with 00 Center hypoxia hypoxia 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 chronic nce 8-11 Erika kes kidney kidney 00:00: Medical disease, disease, 00 Center on chronic on chronic dialysis dialysis Thrombocyt Thrombocyt Disease Recurre [facility] openia openia nce 8-11 [facility] 00:[facility]: Medical 00 [place] Lung Lung Disease Active [facility] nodules nodules 8-11 [facility] 00:[facility]: Medical 00 Center Acute Acute Disease Active [facility] cystitis cystitis 8-11 [facility] without without 00:00: Medical hematuria hematuria 00 Cent er Bladder Bladder Disease Active [facility] mass mass 8-11 [facility] 00:00: Medical 00 Center Hydronephr Hydronephr Disease Active [facility] osis with osis with 811 [facility] ureteropel ureteropel 00:00: Me dical kimberlee kimberlee 00 Center junction junction (UPJ) (UPJ) obstructio obstructio n n Myoclonus Myoclonus Disease Active [facility] 8-11 [facility] 00:00: Medical 00 Center AAA AAA Disease Recurre [facility] (abdominal (abdominal nce 7-30 Erika kes aortic aortic 00:00: Medical aneurysm) aneurysm) 00 Cent er Acute Acute Disease Recurre [facility] kidney kidney nce 7-30 [facility] injury injury 00:00: Medical superimpos superimpos 00 Ce nter ed on ed on chronic chronic kidney kidney disease disease Diabetes Diabetes Disease Recurre [facility] mellitus mellitus nce 7-30 [facility] 00:00: Medical 00 Center ESRD (end ESRD (end Disease Rec[facility]re [facility] stage stage nce 7-30 [facility] renal renal 00:00: Medical disease) disease) 00 Center on on dialysis dialysis Malignant Malignant Disease Rec[facility]re [facility] neoplasm neoplasm nce 7-30 [facility] of urinary of urinary 00:00: Ks dical bladder, bladder, 00 Center unspecifie unspecifie d site d site 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 00:00: Medical distal distal 00 Center ureter ureter Anemia Anemia Disease Active [facility] 7-30 [facility] 00:[facility]: Medical 00 Center Bradycardi Bradycardi Disease Active [facility] a a 7-30 [facility] 00:00: Medical 00 [place] CKD CKD Disease Active [facility] (chronic (chronic 7-30 [facility] kidney kidney 00:00: Medical disease) disease) 00 Center Dyslipidem Dyslipidem Disease Active [facility] ia ia 7-30 [facility] 00:00: Medical 00 Center Hyperkalem Hyperkalem Disease Active [facility] ia ia 7-30 [facility] 00:00: Medical 00 Center Hypotensiv Hypotensiv Disease Active [facility] e episode e episode 7-30 [facility] 00:00: Medical 00 Center Lower Lower Disease Active [facility] urinary urinary 7-30 [facility] tract tract 00:00: Medical symptoms symptoms 00 Center (LUTS) (LUTS) OAB OAB Disease Active [facility] (overactiv (overactiv 7-30 Erika kes e bladder) e bladder) 00:00: Me dical 00 Center Pulmonary Pulmonary Disease Active [facility] edema edema 7-30 [facility] 00:00: Medical 00 Center Urge Urge Disease Active [facility] incontinen incontinen 7-30 Erika kes ce ce 00:00: Medical 00 [place] Shortness Shortness Disease Active [facility] of breath of breath 7-30 [facility] 00:00: Medical 00 Center Abdominal Abdominal Disease Active [facility] pain pain 7-30 [facility] 00:00: Medical 00 [place] Troponin I Troponin I Disease Active U nivers above above 1-26 [place] of reference [place] 00:[place] range range 00 Medical Branch Atrial Atrial Disease Active Univers flutter flutter 1-26 ity of with rapid [place] ventricula ventricula 00 [place] dical r response r response Br anch Pulmonary Pulmonary Disease Recurre [facility] hypertensi hypertensi nce 1-25 Erika kes on on 00:00: Medical 00 [place] Coronary Coronary Disease Active Unive rs artery artery 1-24 ity of disease disease 00:00: [place] involving involving 00 Medi unruly [place] Branch coronary coronary artery of artery of [place] heart heart without without angina angina pectoris pectoris JAZZY (acute JAZZY (acute Disease Active U nivers kidney kidney 1-24 ity of injury) injury) 00:00: [place] [address] Medical Branch Atrial Atrial Disease Recurre [facility] flutter flutter nce 1-24 [facility] 00:00: Medical 00 [place] Chronic Chronic Disease Recurre [facility] diastolic diastolic nce 1-24 [facility] congestive congestive 00:00: Ks dical heart heart 00 Center failure failure PAD PAD Disease Recurre [facility] (periphera (periphera nce 1-24 Erika kes l artery l artery 00:00: Medica l disease) disease) 00 Center Arterioscl Arterioscl Disease Active [facility] erosis of erosis of 1-24 Luke s coronary coronary 00:00: Medica l artery artery 00 Center Obesity Obesity Disease Active [facility] (BMI (BMI 1-24 [facility] 30-39.9) 30-39.9) 00:00: Medica l 00 Center Other Other Disease Active [facility] hyperlipid hyperlipid 1-24 Erika kes emia emia 00:00: Medical 00 Center Primary Primary Disease Active [facility] hypertensi hypertensi 1-24 Erika kes on on 00:00: Medical 00 Center Toe ulcer, Toe ulcer, Disease Active U nivers right, right, 2-20 ity of limited [place] breakdown breakdown 00 Medi unruly of skin of skin Branch COPD COPD Disease Recurre [facility] exacerbati exacerbati nce 2-16 Erika kes on on 00:00: Medical 00 [place] COPD COPD Disease Active Univers (chronic (chronic 2-15 ity of obstructiv obstructiv 00:00: [place] e e 00 Medical pulmonary pulmonary Bran ch disease) disease) HCAP HCAP Disease Active Univers (healthcar (healthcar 1-20 it y of e-associat e-associat 00:00: [place] ed ed 00 Medical pneumonia) pneumonia) Br anch Eschar of Eschar of Disease Active 2016-[address] [facility] foot foot 1-28 [facility] 00:00: Medical [place] Respirator Respirator Disease Active 2016-08 U nivers y failure, y failure, 1-26 it y of acute acute 00:00: [place] Medical Branch [id number] MRSA Problem Active Common ([facility] in - [facility] staph [facility] aureus) Medical culture Center positive Allergies, Adverse Reactions, Alerts Allergy Allergy Status Severity Reaction(s) Onset Inactive Treating Comm ents Source Name Type Date Date Clinician PIPERACI Allergy Active Low Rash [facility] LLIN-DAVID 2-27 [facility] OBACTAM 00:00: Medical 00 [place] Piperaci Propensi Active Rash LEUKOCYTO Uni vers llin-David ty to 2-27 CLASTIC ity of obactam adverse 00:00: VASCULITI [place] reaction 00 S Medical s Branch PIPERACI DRUG Active Rash Univers LLIN-DAVID 2-27 ity of OBACTAM 00:00: [place] Medical Branch Piperaci Drug Active Rash LEUKOCYTO [facility]I [facility] t llin-David Allergy 2-27 CLASTIC [facility] obactam 00:00: VASCULITI Medica l 00 S Center AMIODARO Allergy Active High Rash [facility] NE 2-24 [facility] 00:00: Medical 00 [place] AMIODARO DRUG Active High Rash Univers NE INGREDI 2-24 ity of 00:00: [place] 00 Medical Branch Amiodaro Drug Active Rash Prior to [facility] ne Allergy 2-24 rash [facility] 00:00: onset pt Medical 00 given Center amiodaron e, generaliz ed purpuric rash noted; however was started on zosyn around the same time. So may have been from that SULFA Allergy Active High Other [facility] (SULFONA 4-03 [facility] MIDE 00:00: Medical ANTIBIOT 00 Center ICS) CODEINE Allergy Active Low Rash [facility] 4-03 [facility] 00:00: Medical 00 Center Codeine Propensi Active Rash Univers ty to [...] 00:00: [place] ANTIBIOT 00 Medical ICS) Branch Codeine Drug Active Rash, Other [facility] Allergy (See 4-03 [facility] Comments) 00:00: Medical 00 Center Sulfa Drug Active Other (See [facility] (Sulfona Allergy Comments), 11-11 Eduardo es mide Shortness Of 00:00: Medi unruly Antibiot Breath, 00 Center ics) Swelling NO KNOWN Allergy Active [facility] Social History Social Habit Start Date Stop Date Quantity Comments Source History of tobacco Cigarette Smoker [facility] use [facility] Exposure to 2023-02-27 2023-03-[address] [facility] SARS-CoV-2 (event) 00:00:00 14:52:00 [facility] Cigarettes smoked 2023-03-09 2023-03-[address] [employer] current (pack per 00:00:00 00:00:00 Medical Center day) - Reported Cigarette 2023-03-09 2023-03-[address] [facility] pack-years 00:00:00 00:00:00 [facility] Tobacco use and 2023-03-09 2023-03-[address] [facility] exposure 00:00:00 00:00:00 tobacco user Medical [facility] er Alcohol intake 2023-03-09 2023-03-09 Ex-drinker [facility] Eduardo es 00:00:00 00:00:00 (finding) [facility] Tobacco Comment 2023-03-09 2023-03-09 Quit smoking 8-[address] [facility] 00:00:00 00:00:00 years ago, former Medical Center 3 PPD smoker for 50 years. Sex Assigned At [address] [facility] Erika kes 00:00:00 00:00:00 [facility] Smoking Status Start Date Stop Date Source Ex-smoker 2023-03-09 00:00:00 2023-03-09 00:00:00 [facility] Medications Ordered Filled Start Stop Current Ordering Indication Dosage Frequency Signature Comments Components Source Medication Medication Date Date Medication? Clinician (SIG) Name Name divalproex 2023- Yes 250mg QD Take [address] [facility] (DEPAKOTE) 03-22 tablet [facility] 250 MG 24 00:00: 23:59 (250 mg Medi unruly hr tablet 00 :00 total) by [facility] mouth daily All further refills through outpatient doctors/cl inics. amLODIPine 2023- Yes 5mg QD Take [address] [facility] (NORVASC) 5 03-22- tablet (5 Erika kes MG tablet 00:00: 23:59 mg total) Me dical 00 :00 by mouth Center daily All further refills through outpatient doctors/cl inics. allopurinoL Yes 100mg Take [address] [facility] [facility] (ZYLOPRIM) 8 tablet [facility] 100 MG 14:51: (100 mg Medical tablet 27 total) by Center mouth. atorvastati Yes [address] n (Lipitor) 8-11 Orally [facility] 80 MG 14:51: Once a day Medica l tablet 27 Center clobetasoL Yes 1{appli [address] [facility] [facility] (TEMOVATE) 8 cation} applicatio [facility] 0.05 % 14:51: n. Medical external 27 Center solution finasteride Yes [address] (PROSCAR) 5 8-11 Orally [facility] mg tablet 14:51: Once a day Me dical 27 Center mometasone Yes Inhale by [facility] 110 mcg/ 8-11 mouth via [facility] actuation 14:51: inhaler. Medi unruly (30) AePB 27 Center cyanocobala Yes [address] min/folic 8-11 Orally [facility] acid 14:51: Once a day Medical (vitamin 27 Center K69-jacvo acid) 1,000-400 mcg Lozg PARoxetine Yes 20mg QD Take 1 [facility] t (PAXIL) 20 8-11 tablet (20 Eduardo es MG tablet 14:51: mg total) Med ical 27 by mouth Center every morning. gabapentin 2022- No 300mg Take [address] 300 mg Tb24 8- 08-11 mg by [facility] 09:01: 00:00 mouth. Medical 32 :00 Center apixaban Yes 5mg Q.5D Take [address] [facility] (ELIQUIS) 5 8-11 tablet (5 Eduardo es mg Tab 00:00: mg total) Medica l tablet 00 by mouth 2 Center (two) times daily You have this already. polyethylen Yes Use daily [facility] e glycol 8-11 per [facility]ukes (GLYCOLAX) 00:00: package Medi unruly 17 gram 00 instructio Center packet ns. It is over-the-c ounter. lidocaine Yes Use per [facility]I [facility] t (Salonpas, 8-11 package [facility] lidocaine,) 00:00: instructio Medical 4 % patch 00 ns for Center pain. It is over the counter. gabapentin 2023- Yes 100mg Take [address] [facility] (NEURONTIN) 03-21 08-10 capsule Luke s 100 MG 00:00: 23:59 (100 mg Medical capsule 00 :00 total) by Center mouth 3 (three) times daily before meals All further refills through outpatient doctors/cl inics. guaiFENesin 2023- Yes 600mg Q.5D Take [address] (mucINEX) 8 08-10 tablet [facility] 600 mg 12 00:00: 23:59 (600 mg Medi unruly hr tablet 00 :00 total) by Cente r mouth 2 (two) times daily It is over-the-c ounter. HYDROcodone 2022- Yes 1{tbl} Take [address] -acetaminop 03-21 tablet by Erika jones (NORCO 00:00: 23:59 mouth Medic al 5-325) 00 :00 every 8 Center 5-325 mg (eight) per tablet hours as needed (moderate to severe acute back/shoul catherine pain) for up to 7 days. Max Daily Amount: 3 tablets aspirin 325 2022- No [address] MG tablet 03-20 Orally [facility] 20:47: 00:00 Once a day Medica l 42 :00 Center amLODIPine 2022- No [address] (NORVASC) 03-20 Orally [facility] 10 MG 20:47: 00:00 Once a day Medic al tablet 42 :00 Center tamsulosin Yes AT BEDTIME [facility] (FLOMAX) 1-25 [facility] 0.4 mg Cap 00:00: Medical 24 hr 00 Center capsule linezolid No 600mg 600 mg, Uni vers [...] by: ADC PROVIDER aspirin 81 2021- No [id number] 81mg Take 1 Univers mg EC 09-12 tablet by ity of tablet 00:00: 05:59 mouth [place] 00 :00 daily for Medical 30 days. Branch aspirin 81 2021- No [id number] 81mg Take 1 Univers mg EC 09-12 tablet by ity of tablet 00:00: 05:59 mouth [place] 00 :00 daily for Medical 30 days. Branch atorvastati 2021-0 Yes 40mg Take 40 mg Univers n 40 mg 2-01 by mouth ity of tablet 18:18: at [place] 48 bedtime. Medical Branch gabapentin 2021-0 Yes 300mg Take 300 Un cameron 300 mg 2-01 mg by ity of tablet 18:18: mouth [place] 48 daily. Medical Branch FINASTERIDE 2021-0 Yes 5mg 5 mg. Dartfishe rs , BULK, 2- ity of MISC [...] by mouth ity of tablet 18:18: at [place] 48 bedtime. Medical Branch gabapentin 2021-0 Yes 300mg Take 300 Un cameron 300 mg 2-01 mg by ity of tablet 18:18: mouth [place] 48 daily. Medical Branch FINASTERIDE 2021-0 Yes 5mg 5 mg. Dartfishe rs , BULK, 2- ity of MISC [...] by mouth ity of tablet 18:18: at [place] 48 bedtime. Medical Branch gabapentin 2021-0 Yes 300mg Take 300 Un cameron 300 mg 2-01 mg by ity of tablet 18:18: mouth [place] 48 daily. Medical Branch FINASTERIDE 2021-0 Yes 5mg 5 mg. Dartfishe rs , BULK, 2- ity of MISC [...] Mometasone 2021-0 Yes Inhale. Univ ers (ASMANEX 2- ity of TWISTHALER) 18:18: [place] 110 mcg (30 48 Medical doses) Branch aerosol powder tamsulosin 2021-0 Yes .4mg Take 0.4 Uni vers (FLOMAX) 2-01 mg by ity of 0.4 mg 24 18:18: mouth [place] hr capsule 48 daily. Medical Branch atorvastati 2021-0 Yes 40mg Take 40 mg Univers n 40 mg 2-01 by mouth ity of tablet 18:18: at [place] 48 bedtime. Medical Branch gabapentin 2021-0 Yes 300mg Take 300 Un cameron 300 mg 2-01 mg by ity of tablet 18:18: mouth [place] 48 daily. Medical Branch FINASTERIDE 2021-0 Yes 5mg 5 mg. Dartfishe rs , BULK, 2- ity of MISC 18:18: [place] 48 Medical Branch PAROXETINE 2021-0 Yes 20mg Take 20 mg U nivers HCL (PAXIL 2-01 by mouth. ity of ORAL) 18:18: [place] 48 Medical Branch allopurinol 2-0 Yes 100mg Take 100 U nivers 100 [...] [place] 04 :00 Medical Branch apixaban 5 No [id number] 5mg Take 1 Univ ers mg tablet 09-11 tablet by ity of 00:00: 05:59 mouth 2 [place] 00 :00 (two) Medical times Branch daily for 30 days. Indication s: prevention of thromboemb olism in paroxysmal atrial fibrillati on ferrous 2021- No [id number] 325mg Take 1 U nivers sulfate 325 09-11 tablet by it y of mg (65 mg 00:00: 05:59 mouth 2 [place] iron) 00 :00 (two) Medical tablet times Branch daily for 30 days. diltiazem [id number] 120mg Take 1 Univers 120 mg 24 [...] in paroxysmal atrial fibrillati on ferrous No [id number] 325mg Take 1 U nivers sulfate 325 09-11 tablet by it y of mg (65 mg 00:00: 05:59 mouth 2 [place] iron) 00 :00 (two) Medical tablet times Branch daily for 30 days. diltiazem [id number] 120mg Take 1 Univers 120 mg 24 09-11 capsule by ity of hr capsule 00:00: 05:59 mouth [place] 00 :00 daily for Medical 30 days. Branch linezolid 2021- No [id number] 600mg Take 1 Univers 600 mg 09-11 tablet by ity of tablet 00:00: 05:59 mouth [place] 00 :00 every 12 Medical (twelve) Branch hours for 7 days. linezolid 2021- No [id number] 600mg Take 1 Univers 600 mg 09-11 tablet by ity of tablet 00:00: 05:59 mouth [place] 00 :00 every 12 Medical (twelve) Branch hours for 7 days. diltiazem [id number] 30mg Take 1 Univers 30 mg 09-11 tablet by ity of tablet 00:00: 00:00 mouth [place] 00 :00 every 6 Medical (six) Branch hours for 30 days. HYDROcodone Yes 1{tbl} 1 tablet, Univers -acetaminop 09-10 Oral, ity of hen (NORCO 21:51: Q6HPRN, [place] 5) 5-325 mg 07 Starting Medi unruly tablet 1 on [facility] tablet 09/10/21 at 1551, Until Discontinu ed, Routine, Pain (scale 7-10) traMADoL 50mg 50 mg, Univer s (ULTRAM) 09-10 Oral, ity of tablet 50 19:30: 19:08 ONCE, 1 [place] mg 00 :00 dose, On Medical [facility] Branch 09/10/21 at 1330, Routine apixaban Yes 5mg 5 mg, Univers (ELIQUIS) 09-10 Oral, BID, ity of tablet 5 mg 02:00: First dose [place] 00 on [place] Medical 09/09/21 at Branch 2000, Until Discontinu [...] ity of PEDIATRIC 05:15: 15:14 at 75 [place] IV infusion 00 :00 mL/hr, Medica l CONTINUOUS Branch , Starting on Fri09/05/21 at 2315, Until Dee 09/06/21 at 0914, Routine benzonatate Yes 100mg 100 mg, Un cameron (TESSALON 09-06 Oral, ity of PERLES) 00:54: Q8HPRN, [place] capsule 100 06 Starting Medi unruly mg [...] ONCE, 1 Medical Piggyback dose, On Branch ,250 mg Fri09/04/21 at 1030, Administer over 90 Minutes
Reason for Anti-Infec tive: Documented Infection< br>Documen jose Infection Site: Respirator y
Durat ion of Therapy: Other (see Comments) iron 2021-2021- No 200mg 200 mg, IV Unive rs sucrose 09-04 Infusion, ity of (VENOFER) 15:30: 17:42 ONCE, [place] 200 mg in 00 :00 Administer Medi unruly NaCl 0.9% over 2.5 Branch (NS) 100 mL Hours, On infusion Fri09/04/21 at 0930, For 1 dose methylPREDN 2021- No 40mg 40 mg, Uni vers ISolone sod 09-04 Intravenou i ty of succ 15:00: 14:49 s, DAILY, [place] (SOLU-MEDRO 00 :00 4 doses, Medi unruly L (PF)) First dose Branch injection (after 40 mg last modificati on) on Fri09/04/21 at 0900, Last dose on Fri09/07/21 at 0900, STAT cefTRIAXone 2021- No 1000mg 1,000 mg, Univers (ROCEPHIN) [...] First dose [place] mg 00 on [facility] Medical 09/03/21 at Branch 1030, Until Discontinu ed, Routine aspirin EC Yes 81mg 81 mg, Unive rs tablet 81 09-03 Oral, ity of mg 15:00: DAILY, [place] 00 First dose Medical on [facility] 09/03/21 at 0900, Until Discontinu ed, Routine PARoxetine Yes 20mg 20 mg, Unive rs (PAXIL) 09-03 Oral, ity of tablet 20 15:00: DAILY, [place] mg 00 First dose Medical on [facility] 09/03/21 at 0900, Until Discontinu ed finasteride Yes 5mg 5 mg, Unive rs (PROSCAR) 09-03 Oral, ity of tablet 5 mg 15:00: DAILY, [place] 00 First dose Medical on [facility] 09/03/21 at 0900, Until Discontinu ed NIFEdipine 2021- No 60mg 60 mg, Univ ers ER tablet 09-03 Oral, ity of 60 mg 15:00: 14:27 DAILY, [place] 00 :50 First dose Medical on [facility] 09/03/21 at 0900, Until Discontinu ed tamsulosin 2021- No .4mg 0.4 mg, Uni vers (FLOMAX) 09-03 Oral, ity of capsule 0.4 15:00: 03:06 DAILY, Naresh as mg 00 :19 First dose Medical on [facility] 09/03/21 at 0900, Until Discontinu ed, Routine azithromyci 2021- No 500mg 500 mg, IV Univers n 09-03 Piggyback, ity of (ZITHROMAX) 07:30: 00:32 Q24H ABX, [place] 500 mg in 00 :51 First dose Medi unruly NaCl 0.9% on [facility] (NS) 250 mL 09/03/21 at VIAL-MATE [...] 15 Starting Medica l %) on [facility] nebulizer 09/03/21 at solution 0029, 2.5 mg Until Discontinu ed, Routine, Shortness of Breath, Wheezing, Bronchospa sm heparin 2-0 2022- No 5000U 5,000 Univers (porcine) 09-03 01-30 Units, ity of injection 04:00: 17:52 Subcutaneo [place] 5,000 Units 00 :16 us, Q8H, [facility] unruly First dose Branch on [place] 09/02/21 at 2200, Until Discontinu ed, Routine atorvastati 0 Yes 40mg 40 mg, [facility] [place] [facility] ers n (LIPITOR) 09-03 Oral, QHS, it y of tablet 40 03:00: First dose [place] mg 00 on [facility] 09/02/21 at Branch 2100, Until Discontinu ed, Routine budesonide- 0 Yes 2{puff} 2 Puff, [facility] formoteroL 09-03 Inhalation ity of (SYMBICORT) 02:00: , BID, [place] 160-4.5 00 First dose Medica l mcg/actuati on [facility] on inhaler 09/02/21 at 2 Puff 1999, Until Discontinu ed, Routine ipratropium 0 Yes 3mL 3 mL, [facility] rs -albuteroL 09-03 Inhalation ity of (DUONEB) 02:00: , Q4H, [place] 0.5 mg-3 00 First dose Medic al mg(2.5 mg (after Branch base)/3 mL last nebulizer modificati solution 3 on) on [place] mL 09/02/21 at 2000, Until Discontinu ed, AILYN furosemide 2021-0 2021- No 20mg 20 mg, [facility] [place] [facility] ers (LASIX) 09-03 Slow IV ity of injection 01:15: 02:16 Push, [place] 20 mg 00 :00 ONCE, 1 Medical dose, On Branch [place] 09/02/21 at 1915, Routine methylPREDN 2021-0 2021- No 40mg 40 mg, Uni vers ISolone sod 09-03 Intravenou i ty of succ 00:00: 21:42 s, Q6H, [place] (SOLU-MEDRO 00 :53 First dose Me dical L (PF)) (after Branch injection last 40 mg reorder) on 09/02/21 at 1800, Until Discontinu ed, STAT Sliding Yes Subcutaneo Univ ers Scale -23 us, TID ity of Insulin - 23:00: MEALS+HS, [place] as Lispro 00 First dose Medical (HumaLOG) + on [place] Branch Fsbg 09/02/21 at Testing 1700, Until Discontinu ed, Routine glucagon Yes 1mg 1 mg, Univers (GLUCAGEN 09-02 Intramuscu ity of DIAGNOSTIC 22:44: lar, PRN, [place] KIT) 34 Starting Medical injection 1 on [place] Branch mg 09/02/21 at 1644, Until Discontinu ed, AILYN, Blood Glucose < or = 70 mg/dL and patient is unable to swallow or has mental changes. dextrose 50 Yes 25mL 25 mL, Univ ers % in water 09-02 Slow IV ity of (D50W) 22:44: Push, PRN, [place] injection 34 Starting Medica l 25 mL on [place] Branch 09/02/21 at 1644, Until Discontinu ed, AILYN, Blood Glucose < or = 70 mg/dL and patient is unable to swallow or has mental status changes. acetaminoph Yes 650mg 650 mg, Un cameron en 09-02 Oral, ity of (TYLENOL) 21:38: Q6HPRN, [place] tablet 650 12 Starting Medic al mg on [place] Branch 09/02/21 at 1538, Until Discontinu ed, Routine, Pain (scale 1-3) ipratropium 0 2021- No 3mL 3 mL, Univ ers -albuteroL 09-02 Inhalation it y of (DUONEB) 19:15: 18:44 , ONCE, 1 [place] as 0.5 mg-3 00 :00 dose, On Medical mg(2.5 mg [facility] base)/3 mL 09/02/21 at nebulizer 1315, AILYN solution 3 mL Saxagliptin 2021-0 2021- No 2.5mg Take 2.5 Univers 2.5 mg 09-02 mg by ity of tablet 18:17: 00:00 mouth [place] 03 :00 daily. Medical Branch furosemide 2021- No 20mg Take 20 mg Univers 20 mg 09-02 by mouth ity of tablet 18:17: 00:00 daily. [place] 03 :00 Medical Branch busPIRone 2021- No 10mg Take 10 mg U nivers 10 mg 09-02 by mouth ity of tablet 18:17: 00:00 daily. [place] 03 :00 Medical Branch GLIPIZIDE 2021- No 10mg Take 10 mg U nivers ORAL 09-02 by mouth. ity of 18:17: 00:00 [place] 03 :00 Medical Branch amLODIPine 2021- No 5mg Take 5 mg U nivers 5 mg tablet 09-02 by mouth ity of 18:17: 00:00 daily. [place] 03 :00 Medical Branch tiotropium 2021- No [...] 09/02/21 at 40 mg 1045, STAT benzonatate 2021-0 Yes [id number] 100mg Take 1 Univers 100 mg 1-23 capsule by ity of capsule 00:00: mouth 3 (three) Medical times Branch daily as needed for Cough. albuterol 2021-0 Yes [id number] 2{puff} Inhale 2 Univers 90 1-23 Puffs ity of mcg/actuati 00:00: every 4 [place] as on inhaler 00 (four) Medical hours as Branch needed for Wheezing or Shortness of Breath. albuterol 2021-0 Yes [id number] 2.5mg Inhale 3 Univers 2.5 mg /3 1-23 mL every 4 ity of mL (0.083 00:00: (four) [place] %) 00 hours. May Medical nebulizer also Branch solution nebulize one extra every 6 hours. furosemide 2021-0 Yes [id number] 20mg Take 1 U nivers 20 mg 1-23 tablet by ity of tablet 00:00: mouth [place] 00 every Medical morning. Branch benzonatate 2021-0 Yes [id number] 100mg Take 1 Univers 100 mg 1-23 capsule by ity of capsule 00:00: mouth 3 (three) Medical times Branch daily as needed for Cough. albuterol 2021-0 Yes [id number] 2{puff} Inhale 2 Univers 90 1-23 Puffs ity of mcg/actuati 00:00: every 4 Naresh as on inhaler 00 (four) Medical hours as Branch needed for Wheezing or Shortness of Breath. albuterol 2021-0 Yes [id number] 2.5mg Inhale 3 Univers 2.5 mg /3 1-23 mL every 4 ity of mL (0.083 00:00: (four) [place] %) 00 hours. May Medical nebulizer also Branch solution nebulize one extra every 6 hours. furosemide 2021-0 Yes [id number] 20mg Take 1 U nivers 20 mg 1-23 tablet by ity of tablet 00:00: mouth [place] 00 every Medical morning. Branch benzonatate 2021-0 Yes [id number] 100mg Take 1 Univers 100 mg 1-23 capsule by ity of capsule 00:00: mouth 3 00 (three) Medical times Branch daily as needed for Cough. albuterol Yes [id number] 2{puff} Inhale 2 Univers 90 1-23 Puffs ity of mcg/actuati 00:00: every 4 Naresh as on inhaler 00 (four) Medical hours as Branch needed for Wheezing or Shortness of Breath. albuterol Yes [id number] 2.5mg Inhale 3 Univers 2.5 mg /3 1-23 mL every 4 ity of mL (0.083 00:00: (four) [place] %) 00 hours. May Medical nebulizer also Branch solution nebulize one extra every 6 hours. furosemide Yes [id number] 20mg Take 1 U nivers 20 mg 1-23 tablet by ity of tablet 00:00: mouth [place] 00 every Medical morning. Branch benzonatate Yes [id number] 100mg Take 1 Univers 100 mg 1-23 capsule by ity of capsule 00:00: mouth 3 [place] 00 (three) Medical times Branch daily as needed for Cough. albuterol Yes [id number] 2{puff} Inhale 2 Univers 90 1-23 Puffs ity of mcg/actuati 00:00: every 4 Naresh as on inhaler 00 (four) Medical hours as Branch needed for Wheezing or Shortness of Breath. albuterol Yes [id number] 2.5mg Inhale 3 Univers 2.5 mg /3 1-23 mL every 4 ity of mL (0.083 00:00: (four) [place] %) 00 hours. May Medical nebulizer also Branch solution nebulize one extra every 6 hours. furosemide Yes [id number] 20mg Take 1 U nivers 20 mg 1-23 tablet by ity of tablet 00:00: mouth [place] 00 every Medical morning. Branch predniSONE 2021- No [id number] 40mg Take 2 Univers 20 mg 1-23 01-31 tablets by ity of tablet 00:00: 05:59 mouth [place] 00 :00 daily for Medical 7 days. Branch budesonide- Yes [id number] 2{puff} Inhale 2 Univers formoterol 3-29 Puffs 2 ity of (SYMBICORT) 00:00: (two) [place] 160-4.5 00 times Medical mcg/actuati daily. Branch on inhaler budesonide- Yes [id number] 2{puff} Inhale 2 Univers formoterol 3-29 Puffs 2 ity of (SYMBICORT) 00:00: (two) [place] 160-4.5 00 times Medical mcg/actuati daily. Branch on inhaler budesonide- Yes [id number] 2{puff} Inhale 2 Univers formoterol 3-29 Puffs 2 ity of (SYMBICORT) 00:00: (two) [place] 160-4.5 00 times Medical mcg/actuati daily. Branch on inhaler budesonide- Yes [id number] 2{puff} Inhale 2 Univers formoterol 3-29 Puffs 2 ity of (SYMBICORT) 00:00: (two) [place] 160-4.5 00 times Medical mcg/actuati daily. Branch on inhaler apixaban 5 2021- No 5mg Take 1 Univ ers mg tablet 11-03 tablet by ity of 00:00: 00:00 mouth 2 [place] 00 :00 (two) Medical times Branch daily. ipratropium Yes 3mL Inhale 3 Un cameorn -albuterol 2-26 mL every 6 ity of [...] :00 hours. Medica l on inhaler Branch Cholecalcif Cholecalcif No 1{capsu QD Cholecalci billy [...] MCG billy 50 MCG le} ferol 50 (1999 [place]) (1999) MCG (1999) Allopurinol Allopurinol No 1{table [...] Propionate 0.05 % 0.05 % 0.05 % Immunizations Ordered Filled Immunization Date Status Comments Sour e Immunization Name Name Pneumococcal 13 2017-10-06 Completed Universit y of Conjugate, PCV13 00:00:00 [facility] [place] dical (Prevnar 13) Branch Pneumococcal 13 2017-10-06 Completed Universit y of Conjugate, PCV13 00:00:00 [facility] [place] dical (Prevnar 13) Branch Pneumococcal 13 2017-10-06 Completed Universit y of Conjugate, PCV13 00:00:00 [facility] [place] dical (Prevnar 13) Branch Pneumococcal 13 2017-10-06 Completed Universit y of Conjugate, PCV13 00:00:00 [facility] [place] dical (Prevnar 13) [place] Influenza Virus 2017-05-11 Completed Universit y of Vaccine 00:00:00 [facility] Influenza Virus 2017-05-11 Completed Universit y of Vaccine 00:00:00 [facility] Influenza Virus 2017-05-11 Completed Universit y of Vaccine 00:00:00 [facility] Influenza Virus 2017-05-11 Completed Universit y of Vaccine 00:00:00 [facility] Vital Signs Vital Name Observation Time Observation Value Comments Source WEIGHT 2023-03-21 06:00:00 84 kg WEIGHT 2023-03-20 20:00:00 83.2 kg WEIGHT 2023-03-19 03:00:00 86.183 kg WEIGHT 2023-03-18 12:15:00 83.7 kg WEIGHT 2023-03-18 05:08:00 85.503 kg WEIGHT 2023-03-17 05:00:00 85.322 kg WEIGHT 2023-03-14 12:30:00 78 kg WEIGHT 2023-03-12 11:35:00 81 kg WEIGHT 2023-03-10 16:45:00 83 kg WEIGHT 2023-03-10 13:45:00 84.5 kg WEIGHT 2023-03-09 18:00:00 83 kg HEIGHT 2023-03-09 14:15:00 175.3 cm WEIGHT 2023-03-21 06:00:00 84 kg WEIGHT 2023-03-20 20:00:00 83.2 kg WEIGHT 2023-03-19 03:00:00 86.183 kg WEIGHT 2023-03-18 12:15:00 83.7 kg WEIGHT 2023-03-18 05:08:00 85.503 kg WEIGHT 2023-03-17 05:00:00 85.322 kg WEIGHT 2023-03-14 12:30:00 78 kg WEIGHT 2023-03-12 11:35:00 81 kg WEIGHT 2023-03-10 16:45:00 83 kg WEIGHT 2023-03-10 13:45:00 84.5 kg WEIGHT 2023-03-09 18:00:00 83 kg HEIGHT 2023-03-09 14:15:00 175.3 cm WEIGHT 2023-03-21 06:00:00 84 kg WEIGHT 2023-03-20 20:00:00 83.2 kg WEIGHT 2023-03-19 03:00:00 86.183 kg WEIGHT 2023-03-18 12:15:00 83.7 kg WEIGHT 2023-03-18 05:08:00 85.503 kg WEIGHT 2023-03-17 05:00:00 85.322 kg WEIGHT 2023-03-14 12:30:00 78 kg WEIGHT 2023-03-12 11:35:00 81 kg WEIGHT 2023-03-10 16:45:00 83 kg WEIGHT 2023-03-10 13:45:00 84.5 kg WEIGHT 2023-03-09 18:00:00 83 kg HEIGHT 2023-03-09 14:15:00 175.3 cm Systolic blood 2021-09-11 22:27:00 126 mm[Hg] [facility] Diastolic blood 2021-09-11 22:27:00 66 mm[Hg] Unive rsity of pressure [facility] Heart rate 2021-09-11 22:27:00 77 /min Universi ty [facility] Body temperature 2021-09-11 22:27:00 37 Jazmin Univ ersity of [facility] Respiratory rate 2021-09-11 22:27:00 18 /min [facility] O[facility] saturation in 2021-09-11 22:27:00 96 /min [facility] Arterial blood by [facility] Pulse oximetry Branch Body weight 2021-09-10 10:13:00 91.627 kg Universi ty [facility] BMI 2021-09-10 10:13:00 29.83 kg/m2 Universi ty [facility] Body height 2021-09-02 15:19:00 175.3 cm Universi ty [facility] height 2020-07-31 11:30:00 69 [in_i] [facility] weight 2020-07-31 11:30:00 210.8 [lb_av] [facility] temperature 2020-07-31 11:30:00 98.3 [degF] Common [facility] bmi 2020-07-31 11:30:00 31.13 kg/m2 [facility] Heart oximetry 2020-07-31 11:30:00 97 % Common [facility] blood pressure 2020-07-31 11:30:00 169 mm[Hg] [facility] systolic [facility] blood pressure 2020-07-31 11:30:00 76 mm[Hg] [facility] diastolic [facility] Heart rate 2023-03-21 11:18:00 98 /min [facility] Respiratory rate 2023-03-21 08:09:00 18 /min [facility] Oxygen saturation in 2023-03-21 08:09:00 98 /min [facility] Arterial blood by Medical nter Pulse oximetry Systolic blood 2023-03-21 07:15:00 114 mm[Hg] [facility] Diastolic blood 2023-03-21 07:15:00 54 mm[Hg] [facility] Body temperature 2023-03-21 07:15:00 37.22 Jazmin [facility] Body weight 2023-03-21 06:00:00 84 kg [facility] BMI 2023-03-21 06:00:00 27.35 kg/m2 [facility] Body height 2023-03-09 14:15:00 175.3 cm [facility] Procedures Procedure Date / Time Performing Clinician Source Performed POCT-GLUCOSE METER 2023-03-21 [facility] AUTO 2023-03-21 05:19:00 [facility] DIFFERENTIAL [facility] BASIC METABOLIC PANEL 2023-03-21 05:19:00 [facility] CBC W/PLT COUNT & AUTO 2023-03-21 05:19:00 [facility] POCT-GLUCOSE METER 2023-03-20 22:42:00 [facility] 2023-03-20 18:24:10 Chencho Dickens CH, I [facility] POCT-GLUCOSE METER 2023-03-20 12:13:[facility]SE METER 2023-03-20 07:44:00 [facility] CBC W/PLT COUNT & AUTO 2023-03-20 04:37:00 [facility] DIFFERENTIAL [facility] BASIC METABOLIC PANEL 2023-03-20 04:37:00 [facility] IRON, TIBC, % SAT. 2023-03-20 04:37:00 [facility] (WITHOUT FERRITIN) [place] FERRITIN 2023-03-20 04:37:00 [facility] CBC W/PLT COUNT & AUTO 2023-03-20 04:37:00 [place], Karime [facility] POCT-GLUCOSE METER 2023-03-19 20:41:00 [facility] POCT-GLUCOSE METER 2023-03-19 17:02:00 Etienne Taylor [facility] POCT-GLUCOSE METER 2023-03-19 11:42:00 [facility] POCT-GLUCOSE METER 2023-03-19 07:42:00 [facility] CBC W/PLT COUNT & AUTO 2023-03-19 05:17:00 Sarmad [facility] [place] BASIC METABOLIC PANEL 2023-03-19 05:17:00 [place] [facility] CBC W/PLT COUNT & AUTO 2023-03-19 05:17:00 [place] [facility] [place] URINALYSIS W/ REFLEX URINE 2023-03-18 23:56:00 RodolfoEzekiel [facility] CULTURE [place] URINE CULTURE 2023-03-18 23:56:00 Ezekiel Reynolds [facility] POCT-GLUCOSE METER 2023-03-18 20:57:00 [facility] POCT-GLUCOSE METER 2023-03-18 17:51:00 [facility] HEMODIALYSIS INPATIENT 2023-03-18 12:15:00 Molly Nunn [facility] CBC W/PLT COUNT & AUTO 2023-03-18 04:21:00 [place] [facility] [place] BASIC METABOLIC PANEL 2023-03-18 04:21:00 [facility] CBC W/PLT COUNT & AUTO 2023-03-18 04:21:00 [place] [facility] [place] POCT-GLUCOSE METER 2023-03-17 20:47:00 Giveon [facility] POCT-GLUCOSE METER 2023-03-17 16:44:00 [facility] POCT-GLUCOSE METER 2023-03-17 11:05:00 Etienne Taylor [facility] POCT-GLUCOSE METER 2023-03-17 07:12:00 Etienne Taylor [facility] CBC W/PLT COUNT & AUTO 2023-03-17 04:41:00 Sarmad [facility] [place] BASIC METABOLIC PANEL 2023-03-17 04:41:00 Sarmad [facility] CBC W/PLT COUNT & AUTO 2023-03-17 04:41:00 Sarmad [facility] [place] POCT-GLUCOSE METER 2023-03-16 20:54:00 Almita [facility] POCT-GLUCOSE METER 2023-03-16 16:54:00 Almita [facility] POCT-GLUCOSE METER 2023-03-16 11:45:00 Almita, [facility] URINALYSIS W/ REFLEX URINE 2023-03-16 10:34:00 Emilee Lui [facility] CULTURE Center URINE CULTURE 2023-03-16 10:34:00 Emilee Lui [facility] POCT-GLUCOSE METER 2023-03-16 08:16:00 Almita, [facility] CBC W/PLT COUNT & AUTO 2023-03-16 05:04:00 Sarmad [facility] [place] BASIC METABOLIC PANEL 2023-03-16 05:04:00 [place] [facility] CBC W/PLT COUNT & AUTO 2023-03-16 05:04:00 [place] [facility] [place] POCT-GLUCOSE METER 2023-03-15 20:59:00 Almita [facility] POCT-GLUCOSE METER 2023-03-15 16:53:00 Almita, [facility] POCT-GLUCOSE METER 2023-03-15 12:10:00 Almita, [facility] POCT-GLUCOSE METER 2023-03-15 07:38:00 Almita, [facility] CBC W/PLT COUNT & AUTO 2023-03-15 03:50:00 [facility] BASIC METABOLIC PANEL 2023-03-15 03:50:00 [facility] IRON, TIBC, % SAT. 2023-03-15 03:50:00 [facility] [place] CBC W/PLT COUNT & AUTO 2023-03-15 03:50:00 [facility] POCT-GLUCOSE METER 2023-03-14 21:05:00 Almita, [facility] POCT-GLUCOSE METER 2023-03-14 16:48:00 Almita, [facility] POCT-GLUCOSE METER 2023-03-14 13:33:00 Almita, [facility] CBC W/PLT COUNT & AUTO 2023-03-14 04:06:00 [facility] BASIC METABOLIC PANEL 2023-03-14 04:06:00 [facility] CBC W/PLT COUNT & AUTO 2023-03-14 04:06:00 [facility] POCT-GLUCOSE METER 2023-03-13 20:47:00 Almita, [facility] POCT-GLUCOSE METER 2023-03-13 16:12:00 Almita, [facility] POCT-GLUCOSE METER 2023-03-13 12:16:00 Almita, [facility] POCT-GLUCOSE METER 2023-03-13 07:29:00 Almita, [facility] CYTOLOGY 2023-03-13 05:04:00 Vijay Carvajal [facility] SPUTUM CULTURE + GRAM 2023-03-13 04:06:00 Bryant Kenny [facility] CBC W/PLT COUNT & AUTO 2023-03-13 04:05:00 [facility] BASIC METABOLIC PANEL 2023-03-13 04:05:00 [facility] CBC W/PLT COUNT & AUTO 2023-03-13 04:05:00 [facility] URINALYSIS W/ REFLEX URINE 2023-03-13 02:06:00 Vijay Carvajal [facility] CULTURE Center URINE CULTURE 2023-03-13 02:06:00 Vijay Carvajal [facility] POCT-GLUCOSE METER 2023-03-12 21:02:00 Almita [facility] POCT-GLUCOSE METER 2023-03-12 16:22:00 Almita, [facility] POCT-GLUCOSE METER 2023-03-12 11:04:00 Jaye Beach [facility] HEMODIALYSIS INPATIENT 2023-03-12 10:03:44 Ann Machuca [facility] POCT-GLUCOSE METER 2023-03-12 08:59:00 Jaye Beach [facility] XR CHEST 1 VIEW PORTABLE / 2023-03-12 06:44:00 Choco Marie [facility] PROTHROMBIN TIME/INR 2023-03-12 05:03:00 Choco Marie [facility] APTT 2023-03-12 05:03:00 Choco Marie [facility] CBC W/PLT COUNT & AUTO 2023-03-12 05:03:00 [place] [facility] [place] BASIC METABOLIC PANEL 2023-03-12 05:03:00 [place], Karime [facility] CBC W/PLT COUNT & AUTO 2023-03-12 05:03:00 [place] [facility] [place] URINALYSIS W/ MICROSCOPIC 2023-03-11 21:00:00 Nessa Recio [facility] POCT-GLUCOSE METER 2023-03-11 20:42:00 Jaye Beach [facility] SPUTUM CULTURE + GRAM 2023-03-11 18:03:00 Nessa Recio I [facility] RESPIRATORY PANEL 2023-03-11 18:03:00 Nessa Recio [facility] POCT-GLUCOSE METER 2023-03-11 17:02:00 Jaye Beach [facility] POCT-GLUCOSE METER 2023-03-11 11:22:00 Jaye Beach [facility] XR CHEST 1 VIEW PORTABLE / 2023-03-11 06:57:00 Choco Marie [facility] PROTHROMBIN TIME/INR 2023-03-11 05:49:00 Choco Marie [facility] APTT 2023-03-11 05:49:00 Choco Marie [facility] CBC W/PLT COUNT & AUTO 2023-03-11 05:49:00 [place] Karime [facility] BASIC METABOLIC PANEL 2023-03-11 05:49:00 [place] [facility] CBC W/PLT COUNT & AUTO 2023-03-11 05:49:00 [facility] HEMODIALYSIS INPATIENT 2023-03-10 13:26:07 Chencho Dickens I [facility] BEDSIDE SPIROMETRY 2023-03-10 12:30:00 Choco Marie [facility] POCT-GLUCOSE METER 2023-03-10 07:18:00 Jaye Beach [facility] XR CHEST 1 VIEW PORTABLE / 2023-03-10 02:07:00 Choco Marie [facility] CALCIUM, IONIZED 2023-03-10 01:44:00 Cohco Marie [facility] BASIC METABOLIC PANEL 2023-03-10 01:44:00 Choco Marie [facility] MAGNESIUM 2023-03-10 01:44:00 Choco Marie [facility] PHOSPHORUS 2023-03-10 01:44:00 Choco Marie [facility] CBC W/PLT COUNT & AUTO 2023-03-10 01:44:00 Choco Marie [facility] PROTHROMBIN TIME/INR 2023-03-10 01:44:00 Choco Marie [facility] APTT 2023-03-10 01:44:00 Choco Marie [facility] HEPATITIS B SURFACE 2023-03-10 01:44:00 Chencho Dickens [facility] CBC W/PLT COUNT & AUTO 2023-03-10 01:44:00 Choco Marie [facility] 2D ECHO W/ DOPPLER 2023-03-09 18:00:00 Choco Marie [facility] (CW/PW/COLOR) [place] POCT-GLUCOSE METER 2023-03-09 17:57:00 Jaye Beach [facility] [place] HIGH SENSITIVITY TROPONIN 2023-03-09 16:08:00 Choco Marie [facility] B-TYPE NATRIURETIC FACTOR 2023-03-09 16:08:00 Choco Marie [facility] (BNP) Center ABORH, MANUAL 2023-03-09 12:09:00 Nadia Moss [facility] XR CHEST 1 VIEW PORTABLE / 2023-03-09 11:23:00 Choco Marie [facility] CTA CHEST,ABDOMEN & PELVIS 2023-03-09 11:00:00 Choco Marie [facility] - FOR DISSECTION Center BASIC METABOLIC PANEL 2023-03-09 10:17:00 Choco Marie [facility] CBC W/PLT COUNT & AUTO 2023-03-09 10:17:00 Choco Marie CH I [facility] Center MAGNESIUM 2023-03-09 10:17:00 Choco Marie [facility] PHOSPHORUS 2023-03-09 10:17:00 Choco Marie [facility] PROTHROMBIN TIME/INR 2023-03-09 10:17:00 Choco Marie [facility] APTT 2023-03-09 10:17:00 Choco Marie [facility] TYPE AND SCREEN, AUTOMATED 2023-03-09 10:17:00 Choco Marie [facility] CBC W/PLT COUNT & AUTO 2023-03-09 10:17:00 Choco Marie CH I [facility] EXTERNAL PROVIDER RECORDS 2022-10-09 06:01:00 Doctor Unassigned, [facility] Name [facility] AUTHORIZATION FOR RELEASE 2021-10-11 06:01:00 Doctor Unassigned, [facility] Name [facility] POCT GLUCOSE (AUTOMATED) 2021-09-11 17:51:00 Lucas Woodward [facility] POCT GLUCOSE (AUTOMATED) 2021-09-11 14:11:00 Lucas Woodward [facility] BASIC METABOLIC PANEL (NA, 2021-09-11 10:33:00 Lance Solis [facility] K, CL, CO2, GLUCOSE, BUN, Medica l Branch CREATININE, CA) CBC WITH DIFF 2021-09-11 10:33:00 Lance Solis [facility] POCT GLUCOSE (AUTOMATED) 2021-09-11 02:20:00 [facility] ([facility]OMATED) 2021-09-10 23:10:00 [facility] PO[facility] GLUCOSE (AUTOMATED) 2021-09-10 17:41:00 Lucas Woodward [facility] POCT GLUCOSE (AUTOMATED) 2021-09-10 13:53:00 Lucas Woodward [facility] Branch POCT GLUCOSE (AUTOMATED) 2021-09-10 03:13:00 Lucas Woodward versity of [facility] POCT GLUCOSE (AUTOMATED) 2021-09-09 23:15:00 Lucas Woodward versity of [facility] POCT GLUCOSE (AUTOMATED) 2021-09-09 17:16:00 Lucas Woodward versity of [facility] POCT GLUCOSE (AUTOMATED) 2021-09-09 13:49:00 [facility] BASIC METABOLIC PANEL (NA, 2021-09-09 11:00:00 [facility], CO2, GLUCOSE, BUN, Medica l Branch CREATININE, CA) LIPID PANEL ([id number])(TOTAL 2021-09-09 11:00:00 Katya Ayoub [facility] TRIGLYCER[facility], HDL) CBC WITH DIFF 2021-09-09 11:00:00 Lance Solis [facility] N-TERMINAL PRO-BNP 2021-09-09 11:00:00 Leslie Garcia [facility] POCT GLUCOSE (AUTOMATED) 2021-09-09 03:38:00 Lucas Woodward versity of [facility] POCT GLUCOSE (AUTOMATED) 2021-09-08 23:10:00 Lucas Woodward vers[facility] of [facility] POCT GLUCOSE (AUTOMATED) 2021-09-08 17:41:00 Lucas Woodward versity of [facility] POCT GLUCOSE (AUTOMATED) 2021-09-08 13:46:00 Lucas Woodward [facility] POCT GLUCOSE (AUTOMATED) 2021-09-08 03:01:00 Lucas Woodward [facility] of [facility] POCT GLUCOSE (AUTOMATED) 2021-09-07 22:41:00 Lucas Woodward [facility] POCT GLUCOSE (AUTOMATED) 2021-09-07 18:09:00 Lucas Woodward vers[facility] of [facility] POCT GLUCOSE (AUTOMATED) 2021-09-07 14:17:00 Abdullah, Lucas [facility] BASIC METABOLIC PANEL (NA, 2021-09-07 11:30:00 [facility], CL, CO2, GLUCOSE, BUN, Medica l Branch CREATININE, CA) CBC WITH DIFF 2021-09-07 11:30:00 [facility] PO[facility]SE (AUTOMATED) 2021-09-07 03:00:00 Lucas Woodward [facility] POCT GLUCOSE (AUTOMATED) 2021-09-07 01:32:00 Lucas Woodward [facility] POCT GLUCOSE (AUTOMATED) 2021-09-06 22:54:00 Lucas Woodward [facility] POCT GLUCOSE (AUTOMATED) 2021-09-06 17:37:00 Lucas Woodward [facility] EXTRA TUBE URINE CULTURE 2021-09-06 14:38:00 Larry Martinez [facility] URINALYSIS MICROSCOPIC 2021-09-06 14:35:00 James Romeo [facility] CREATININE, URINE RANDOM 2021-09-06 14:35:00 Agueda James [facility] UREA NITROGEN, URINE 2021-09-06 14:35:00 James Romeo [facility] POCT GLUCOSE (AUTOMATED) 2021-09-06 13:47:00 Lucas Woodward [facility] PHOSPHORUS 2021-09-06 08:42:00 Lucas Woodward [facility] MAGNESIUM 2021-09-06 08:42:00 James Romeo [facility] TROPONIN I 2021-09-06 08:42:00 Lucas Woodward [facility] BASIC METABOLIC PANEL (NA, 2021-09-06 08:42:00 James Romeo [facility] K, CL, CO2, GLUCOSE, BUN, [facility] CREATININE, CA) CBC WITH DIFF 2021-09-06 08:42:00 Lance Solis [facility] US ABDOMINAL AORTA SCREEN 2021-09-06 02:52:00 Lance Solis [facility] POCT GLUCOSE (AUTOMATED) 2021-09-06 02:49:00 Lucas Woodward [facility] POCT GLUCOSE (AUTOMATED) 2021-09-05 22:13:00 Lucas Woodward [facility] VANCOMYCIN RANDOM LEVEL 2021-09-05 22:08:00 [facility] POCT GLUCOSE (AUTOMATED) 2021-09-05 17:39:00 Lucas Woodward [facility] BASIC METABOLIC PANEL (NA, 2021-09-05 16:12:00 [facility], CO2, GLUCOSE, BUN, Medica l Branch CREATININE, CA) N-TERMINAL PRO-BNP 2021-09-05 16:12:00 [facility] POCT GLUCOSE (AUTOMATED) 2021-09-05 13:34:00 Lucas Woodward [facility] POCT GLUCOSE (AUTOMATED) 2021-09-05 02:03:00 Lucas Woodward [facility] POCT GLUCOSE (AUTOMATED) 2021-09-04 23:20:00 Lucas Woodward [facility] RESPIRATORY PANEL BY PCR 2021-09-04 20:58:00 Jaye Rodriguez [facility] CT ABDOMEN PELVIS WO 2021-09-04 20:44:03 Jaye Rodriguez [facility] POCT GLUCOSE (AUTOMATED) 2021-09-04 17:38:00 Lucas Woodward [facility] MRSA / MSSA SCREEN BY PCR, 2021-09-04 16:15:00 Leanne Gannon [facility] POCT GLUCOSE (AUTOMATED) 2021-09-04 13:38:00 Lucas Woodward [facility] TROPONIN I 2021-09-04 10:42:00 Deborah Bearden Bailey o f [facility] BASIC METABOLIC PANEL (NA, 2021-09-04 10:42:00 Lucas Woodward [facility] K, CL, CO2, GLUCOSE, BUN, Medica l Branch CREATININE, CA) CBC WITH DIFF 2021-09-04 10:42:00 Lucas Woodward [facility] N-TERMINAL PRO-BNP 2021-09-04 10:42:00 Deborah Bearden [facility] BLOOD CULTURE SCREEN 2021-09-04 05:37:00 Monisha [facility] PROCALCITONIN 2021-09-04 05:37:00 Monisha [facility] POCT GLUCOSE (AUTOMATED) 2021-09-04 02:44:00 Lucas Woodward [facility] POCT GLUCOSE (AUTOMATED) 2021-09-04 01:30:00 Lucas Woodward [facility] URINALYSIS 2021-09-03 22:57:00 Gennaro Mirella [facility] URINE CULTURE 2021-09-03 22:57:00 Mirella Burdick [facility] POCT GLUCOSE (AUTOMATED) 2021-09-03 22:52:00 Lucas Woodward [facility] US RETROPERITONEAL 2021-09-03 17:48:51 Eunice [facility] POCT GLUCOSE (AUTOMATED) 2021-09-03 17:27:00 Lucas Woodward [facility] TRANSTHORACIC ECHO (TTE) 2021-09-03 15:58:[address] [facility] POCT GLUCOSE (AUTOMATED) 2021-09-03 14:12:00 Lucas Woodward [facility] ACUTE CARE VENOUS BLOOD 2021-09-03 10:38:00 Deborah [facility] VITAMIN B12, LEVEL 2021-09-03 09:39:00 Mirella Burdick [facility] URIC ACID 2021-09-03 09:38:00 Monisha carolina [facility] MAGNESIUM 2021-09-03 09:38:00 Lucas Woodward [facility] TROPONIN I 2021-09-03 09:38:00 Mirella Burdick [facility] BASIC METABOLIC PANEL (NA, 2021-09-03 09:38:00 Lucas Woodward [facility] K, CL, CO2, GLUCOSE, BUN, Medica l Branch CREATININE, CA) CBC WITH DIFF 2021-09-03 09:38:00 Juan Carlos [facility] N-TERMINAL PRO-BNP 2021-09-03 09:38:00 Monisha [facility] FREE T3 2021-09-03 09:38:00 Gennaro [facility] PHOSPHORUS 2021-09-03 02:38:00 Juan Carlos [facility] URIC ACID 2021-09-03 02:38:00 Monisha [facility] TROPONIN I 2021-09-03 02:38:00 Gennaro [facility] POCT GLUCOSE (AUTOMATED) 2021-09-02 22:48:00 Lucas Woodward [facility] POCT GLUCOSE (AUTOMATED) 2021-09-02 21:32:00 Lucas Woodward [facility] ACUTE CARE ARTERIAL BLOOD 2021-09-02 16:56:00 Quinn Ibarra [facility] Branch XR CHEST 1 VW 2021-09-02 16:29:28 Quinn Ibarra [facility] RAPID INFLUENZA A/B 2021-09-02 15:40:00 Quinn Ibarra [facility] COVID-19 (ID NOW RAPID 2021-09-02 15:38:00 Quinn Ibarra [facility] TESTING) Medical Branch LAB ONLY COVID 2021-09-02 15:38:00 Quinn Ibarra [facility] INTERPRETATION [facility] BLOOD CULTURE SCREEN 2021-09-02 15:32:00 Quinn [facility]barra [facility] LIPASE 2021-09-02 15:32:00 Quinn Ibarra [facility] FERRITIN SERUM 2021-09-02 15:32:00 Gennaro Mirella [facility] TROPONIN I 2021-09-02 15:32:00 Quinn Ibarra [facility] FREE T4 2021-09-02 15:32:00 Gennaro [facility] THYROID STIMULATING 2021-09-02 15:32:00 Mirella Burdick Stephanie [facility] HORMONE [facility] COMP. METABOLIC PANEL 2021-09-02 15:32:00 Quinn Ibarra [facility] ([id number]) [facility] IRON PANEL 2021-09-02 15:32:00 Mirella Burdick [facility] CBC WITH DIFF 2021-09-02 15:32:00 Quinn Ibarra [facility] GLYCOSYLATED HEMOGLOBIN 2021-09-02 15:32:00 Gennaro [facility] (A1C) [facility] PROTHROMBIN TIME / INR 2021-09-02 15:32:00 Quinn Ibarra [facility] ACTIVATED PARTIAL THRMPLAS 2021-09-02 15:32:00 Quinn Ibarra [facility] N-TERMINAL PRO-BNP 2021-09-02 15:32:00 [facility] PROCALCITONIN 2021-09-02 15:32:00 Mirella Burdick [facility] BLOOD CULTURE WORKUP 2021-09-02 15:32:00 Quinn Ibarra [facility] HB ECG ROUTINE & RHYTHM 2021-09-02 15:16:43 Quinn Ibarra [facility] Plan of Care Planned Activity Planned Date Details Comments Source Future Scheduled 2024-03-[address] [facility] Test 00:00:00 [facility]ing [facility] Medical Cente r Screening (12+) [code = Tobacco Cessation Counseling and Screening (12+)] Future Scheduled 2023-04-11 Influenza Vaccine (#1) [facility]00 [code = Influenza Medical Ce nter Vaccine (#1)] Future Scheduled 2023-03-[address] [facility] 00[facility]00 [facility] (procedure) [code = 11957728] Future Scheduled 2022-08-[address] [facility] Test 00:00:00 (12+) [code = Medical Center DEPRESSION SCREENING (12+)] Future Scheduled 2022-08-11 FALLS RISK SCREENING [facility] Test 00:00:00 [code = FALLS RISK Medical C enter SCREENING] Future Scheduled 2017-12-01 PNEUMOCOCCAL 65+ YRS [facility] Test 00:00:00 (2 - PPSV23 if Medical Cente r available, else PCV20) [code = PNEUMOCOCCAL 65+ YRS (2 - PPSV23 if available, else PCV20)] Future Scheduled 2006-02-[address] [facility] 00:00:00 WELLNESS (YEAR 2 or Medical Center FIRST YEAR if no IPPE) [code = MEDICARE ANNUAL WELLNESS (YEAR 2 or FIRST YEAR if no IPPE)] Future Scheduled 1994 SHINGLES VACCINES ([address] [facility] Test 00:00:00 of 2) [code = SHINGLES Medic al Center VACCINES (1 of 2)] Future Scheduled 1963 DTAP/TDAP/TD VACCINES [facility] 00:00:00 (1 - Tdap) [code = Medical C enter DTAP/TDAP/TD VACCINES (1 - Tdap)] Future Scheduled 1962 HEPATITIS C [facility]CRE[facility]ING [facility] 00:00:00 [code = HEPATITIS C Medical Center SCREENING] Future Scheduled 1954 DIABETIC EYE EXAM [facility] Test 00:00:00 [code = DIABETIC EYE Medical Center EXAM] Future Scheduled [address] [facility] Test 00:00:00 examination Medical Center (regime/therapy) [code = 556320022] Future Scheduled 1954 Urine screening for [facility] Test 00:00:00 protein (procedure) Medical Center [code = 994646773] Future Scheduled 1944 COVID-19 VACCINE (#1) [facility] 00:00:00 [code = COVID-[address] VACCINE (#1)] Encounters Start End Encounter Admission Attending Care Care Encounter Source Date/Time Date/Time Type Type Clinicians Facility Department ID 2023-03-12 Inpatient BEVERLEY DON [facility] [id number] [facility] 05:24:18 JAYE 2023-03-11 Inpatient BEVERLEY DON [facility] [id number] [facility] 05:30:10 JAYE 2023-03-10 Inpatient BEVERLEY DON [facility] [id number] [facility] 00:10:47 [facility] 2023-03-09 Inpatient BEVERLEY DON [facility] [id number] [facility] 16:56:20 [facility] 2023-03-09 Inpatient BEVERLEY DON [facility] [id number] [facility] 10:18:49 [facility] 2023-03-09 Inpatient BEVERLEY DON [facility] [id number] [facility] 00:00:00 [facility] 2021-09-[address] [facility] [id number] Common 12:23:38 [id number] [facility] 2021-09-[address] [facility] [id number] Common 12:15:10 [id number] [facility] 2023-03-09 2023-03-21 Inpatient ETIENNE MÁRQUEZ [facility] Cardiovascu [id number] [facility] 10:02:00 13:00:00 l 2023-03-09 2023-03-21 [facility] [place] [facility] [id number] [facility] 10:02:[facility] 13:00:00 [facility]counter [facility] 2023-03-09 2023-03-09 Inpatient BEVERLEY DON [facility] [id number] [facility] 10:47:20 00:00:00 [facility] 2023-03-09 2023-03-[address] [facility] [id number] [facility] 00[facility]00 [facility] 2022-10-24 2022-10-24 Outpatient Nicolette M[facility]IS [facility] [id number] Univers 16:30:00 16:30:[address] [facility] 2022-10-10 2022-10-10 [facility] [id number] Univers 16:30:00 16:30:[address] [facility] 2022-10-09 2022-10-09 Orders Doctor YOUNG [id number] Univers 00:00:00 00:00:00 Only Unassigned, CLAIR [id number] ity of [place] [facility] 4.2.7.2.686 Naresh as [phone] [facility] 009 Branch 2022-07-22 2022-07-22 Outpatient C JUAN [facility] RAD [id number] [place] 13:59:00 23:59:00 [facility] 2021-10-11 2021-10-11 Orders Doctor HANNAH [id number] Univers 00:00:00 00:00:00 Only Unassigned, CLAIR [id number] [place] [facility] [place] [facility] 4.2.7.2.686 Naresh as [id number] [facility] 009 Branch 2021-09-12 2021-09-12 Transition Nyla FUENTESQuintin [id number] Univers 00:00:00 00:00:00 of Care Hemanth CASILLASY [id number] ity of [place] [id number] [facility] 403 Branch 2021-09-02 2021-09-11 Inpatient X JUAN CARLOS [facility] [id number] Univers 09:15:00 18:12:00 LUCAS ity [facility] 2021-09-02 2021-09-11 [facility] [place] [facility] 1.2.840 .114 [id number] Univers 09:15:00 18:12:00 Encounter Lucas Woodward [place] [id number] [place] [id number] [facility] 081 Branch 2020-08-02 2020-08-02 [facility] [id number] Co mmon 00:00:00 00:00:00 [facility] 2020-07-31 2020-07-31 [facility] [id number] Co mmon 00:00:00 00:00:00 VISIT TENA Delacruz it PT LEVEL 4 - [facility] Results Test Description Test Time Test Comments Results Result Comments Source POC-Glucose meter 2023-03-21 07:35:29 Test Item Value Reference Range Interpretation Comme nts POC-Glucose Meter (test code = 134 mg/dL 70-110 H : TESTED AT [facility] [address]) [place], [address]: Petroleum Geologist/Techni madina ID = [id number] for AICHA MARTINEZ A Lab Interpretation (test code = Abnormal 43824-4) [facility] [id number] 07:35:29 Test Item Value Reference Range Interpretation Comments POC-GLUCOSE METER 134 mg/dL 70-110 H : TESTED A T [facility] [address] (BEAKER) (test code = BERTNE R [facility], 1538) [address]: Petroleum Geologist/Techni madina ID = [id number] for LORRAINE SKY BASIC METABOLIC [id number] 06:05:30 Test Item Value Reference Range Interpretation Comments SODIUM (BEAKER) 136 meq/L 136-145 (test code = 381) POTASSIUM 4.8 meq/L 3.5-5.1 (BEAKER) (test code = 379) CHLORIDE (BEAKER) 101 meq/L 98-107 (test code = 382) CO2 (BEAKER) 22 meq/L 22-29 (test code = 355) BLOOD UREA 35 mg/dL 7-21 H NITROGEN (BEAKER) (test code = 354) CREATININE 3.44 mg/dL 0.57-1.25 H (BEAKER) (test code = 358) GLUCOSE RANDOM 94 mg/dL 70-105 (BEAKER) (test code = 652) CALCIUM (BEAKER) 8.6 mg/dL 8.4-10.2 (test code = 697) EGFR (BEAKER) 18 Interpretatio n of eGFR (test code = mL/min/1.73 values Stage De scription 1092) sq m Result G1 Lamar l or high >=90 G2 Mildly decreased 60-89 G3a Mildl y to moderately 45-5 9 G3b Moderately to s everely 30-44 G4 Severl y decreased 15-29 G5 Kidney failure <15Reported eGF R is based on the CKD-EPI 1 equation that d oes not use a race coefficientEsti mated GFR is not as accur ate as Creatinine Hannah faye in predicting glom erular filtration rate . Estimated GFR is not appl icable for dialysis patien ts Petroleum Geologist ID - ADMINCBC W/PLT COUNT & AUTO [id number] 05:56:01 Test Item Value Reference Range Interpretation Comments WHITE BLOOD CELL COUNT (BEAKER) 7.6 K/ L 3.5-10.5 (test code = 775) RED BLOOD CELL COUNT (BEAKER) 2.58 M/ L 4.63-6.08 L (test code = 761) HEMOGLOBIN (BEAKER) (test code = 7.7 GM/DL 13.7-17.5 L 410) HEMATOCRIT (BEAKER) (test code = 25.0 % 40.1-51.0 L 411) MEAN CORPUSCULAR VOLUME (BEAKER) 97 fL 79-92 H (test code = 753) MEAN CORPUSCULAR HEMOGLOBIN 29.8 pg 25.7-32.2 (BEAKER) (test code = 751) MEAN CORPUSCULAR HEMOGLOBIN CONC 30.8 GM/DL 32.3-36.5 L (BEAKER) (test code = 752) RED CELL DISTRIBUTION WIDTH 16.9 % 11.6-14.4 H (BEAKER) (test code = 412) PLATELET COUNT (BEAKER) (test 226 K/CU MM 150-450 code = 756) MEAN PLATELET VOLUME (BEAKER) 9.5 fL 9.4-12.4 (test code = 754) NUCLEATED RED BLOOD CELLS 0 /100 WBC 0-0 (BEAKER) (test code = 413) NEUTROPHILS RELATIVE PERCENT 66 % (BEAKER) (test code = 429) LYMPHOCYTES RELATIVE PERCENT 19 % (BEAKER) (test code = 430) MONOCYTES RELATIVE PERCENT 11 % (BEAKER) (test code = 431) EOSINOPHILS RELATIVE PERCENT 3 % (BEAKER) (test code = 432) BASOPHILS RELATIVE PERCENT 0 % (BEAKER) (test code = 437) NEUTROPHILS ABSOLUTE COUNT 5.00 K/ L 1.78-5.38 (BEAKER) (test code = 670) LYMPHOCYTES ABSOLUTE COUNT 1.46 K/ L 1.32-3.57 (BEAKER) (test code = 414) MONOCYTES ABSOLUTE COUNT (BEAKER) 0.80 K/ L 0.30-0.82 (test code = 415) EOSINOPHILS ABSOLUTE COUNT 0.25 K/ L 0.04-0.54 (BEAKER) (test code = 416) BASOPHILS ABSOLUTE COUNT (BEAKER) 0.03 K/ L 0.01-0.08 (test code = 417) IMMATURE GRANULOCYTES-RELATIVE 1.00 % 0.00-1.00 PERCENT (BEAKER) (test code = 2801) POCT-GLUCOSE [id number] 22:53:30 Test Item Value Reference Range Interpretation Comments POC-GLUCOSE METER 133 mg/dL 70-110 H : TESTED A T [facility] 6720 (BEAKER) (test code = [facility], 1538) [address]: Petroleum Geologist/Techni madina ID = [id number] for BRETT VILLAGOMEZ SE Urine [id number] 13:23:13 Test Item Value Reference Range Interpretation Comments Result (test code = <10,000 col/mL skin car 6463-4) RADHA (test code = If your patient does not RADHA) have signs or symptoms of UTI, it is recommended NOT to treat, with the exception of and prior to urologic procedures. [facility] [id number] 12:33:21 Test Item Value Reference Range Interpretation Comments POC-GLUCOSE METER 124 mg/dL 70-110 H : TESTED A T [facility] 6720 (BEAKER) (test code = [facility], 1538) [address]: Petroleum Geologist/Techni madina ID = [id number] for JANE MARTINEZ [id number] 09:02:42 Test Item Value Reference Range Interpretation Comments FERRITIN (BEAKER) (test code = 2156.61 ng/mL 5.00-275.00 H 361) Petroleum Geologist ID - MMOperator ID - MMPOCT-GLUCOSE [id number] 07:56:32 Test Item Value Reference Range Interpretation Comments POC-GLUCOSE METER 107 mg/dL 70-110 : TESTED A T [facility] 6720 (BEAKER) (test code = [facility], 1538) [address]: Petroleum Geologist/Techni madina ID = [id number] for JANE MARTINEZ BASIC METABOLIC [id number] 06:53:35 Test Item Value Reference Range Interpretation Comments SODIUM (BEAKER) 136 meq/L 136-145 (test code = 381) POTASSIUM 5.8 meq/L 3.5-5.1 H (BEAKER) (test code = 379) CHLORIDE (BEAKER) 96 meq/L 98-107 L (test code = 382) CO2 (BEAKER) 25 meq/L 22-29 (test code = 355) BLOOD UREA 80 mg/dL 7-21 H NITROGEN (BEAKER) (test code = 354) CREATININE 6.12 mg/dL 0.57-1.25 H (BEAKER) (test code = 358) GLUCOSE RANDOM 102 mg/dL 70-105 (BEAKER) (test code = 652) CALCIUM (BEAKER) 8.7 mg/dL 8.4-10.2 (test code = 697) EGFR (BEAKER) 9 Interpretatio n of eGFR (test code = mL/min/1.73 values Stage De scription 1092) sq m Result G1 Lamar l or high >=90 G2 Mildly decreased 60-89 G3a Mildl y to moderately 45-5 9 G3b Moderately to s everely 30-44 G4 Severl y decreased 15-29 G5 Kidney failure <15Reported eGF R is based on the CKD-EPI 2020 equation that d oes not use a race coefficientEsti mated GFR is not as accur ate as Creatinine Hannah faye in predicting glom erular filtration rate . Estimated GFR is not appl icable for dialysis patien ts Petroleum Geologist ID - ADMINIRON, TIBC, % SAT. (WITHOUT FERRITIN)2023-03-20 06:30:01 Test Item Value Reference Range Interpretation Comments IRON (BEAKER) (test code = 547) 27.0 ug/dL 40.0-160.0 L TOTAL IRON BINDING CAPACITY 163 ug/dL 250-450 L (BEAKER) (test code = 769) IRON % SATURATION (2) (BEAKER) 17 % 20-55 L (test code = 2590) Petroleum Geologist ID - ADMINCBC W/PLT COUNT & AUTO [id number] 06:17:57 Test Item Value Reference Range Interpretation Comments WHITE BLOOD CELL COUNT (BEAKER) 10.1 K/ L 3.5-10.5 (test code = 775) RED BLOOD CELL COUNT (BEAKER) 2.85 M/ L 4.63-6.08 L (test code = 761) HEMOGLOBIN (BEAKER) (test code = 8.3 GM/DL 13.7-17.5 L 410) HEMATOCRIT (BEAKER) (test code = 28.1 % 40.1-51.0 L 411) MEAN CORPUSCULAR VOLUME (BEAKER) 99 fL 79-92 H (test code = 753) MEAN CORPUSCULAR HEMOGLOBIN 29.1 pg 25.7-32.2 (BEAKER) (test code = 751) MEAN CORPUSCULAR HEMOGLOBIN CONC 29.5 GM/DL 32.3-36.5 L (BEAKER) (test code = 752) RED CELL DISTRIBUTION WIDTH 17.2 % 11.6-14.4 H (BEAKER) (test code = 412) PLATELET COUNT (BEAKER) (test 226 K/CU MM 150-450 code = 756) MEAN PLATELET VOLUME (BEAKER) 10.4 fL 9.4-12.4 (test code = 754) NUCLEATED RED BLOOD CELLS 0 /100 WBC 0-0 (BEAKER) (test code = 413) NEUTROPHILS RELATIVE PERCENT 66 % (BEAKER) (test code = 429) LYMPHOCYTES RELATIVE PERCENT 19 % (BEAKER) (test code = 430) MONOCYTES RELATIVE PERCENT 9 % (BEAKER) (test code = 431) EOSINOPHILS RELATIVE PERCENT 4 % (BEAKER) (test code = 432) BASOPHILS RELATIVE PERCENT 0 % (BEAKER) (test code = 437) NEUTROPHILS ABSOLUTE COUNT 6.71 K/ L 1.78-5.38 H (BEAKER) (test code = 670) LYMPHOCYTES ABSOLUTE COUNT 1.94 K/ L 1.32-3.57 (BEAKER) (test code = 414) MONOCYTES ABSOLUTE COUNT (BEAKER) 0.94 K/ L 0.30-0.82 H (test code = 415) EOSINOPHILS ABSOLUTE COUNT 0.35 K/ L 0.04-0.54 (BEAKER) (test code = 416) BASOPHILS ABSOLUTE COUNT (BEAKER) 0.03 K/ L 0.01-0.08 (test code = 417) IMMATURE GRANULOCYTES-RELATIVE 1.50 % 0.00-1.00 H PERCENT (BEAKER) (test code = 2801) POCT-GLUCOSE [id number] 20:58:50 Test Item Value Reference Range Interpretation Comments POC-GLUCOSE METER 112 mg/dL 70-110 H : TESTED Muriel T [facility] 67[address] (BEAKER) (test code = [place], 1538) [address]: Petroleum Geologist/Techni madina ID = [id number] for SHERINE HAGEN POCT-GLUCOSE [id number] 17:13:07 Test Item Value Reference Range Interpretation Comments POC-GLUCOSE METER 122 mg/dL 70-110 H : TESTED A T [facility] 6720 (BEAKER) (test code = [facility], 1538) [address]: Petroleum Geologist/Techni madina ID = [id number] for Am ador, Reed POCT-GLUCOSE [id number] 11:54:06 Test Item Value Reference Range Interpretation Comments POC-GLUCOSE METER 137 mg/dL 70-110 H : TESTED A T [facility] 6720 (BEAKER) (test code = [facility], 1538) [address]: Petroleum Geologist/Techni madina ID = [id number] for Am ador, Reed POCT-GLUCOSE [id number] 07:53:38 Test Item Value Reference Range Interpretation Comments POC-GLUCOSE METER 106 mg/dL 70-110 : TESTED A T [facility] 6720 (BEAKER) (test code = [facility], 1538) [address]: Petroleum Geologist/Techni madina ID = [id number] for Am ador, Reed BASIC METABOLIC [id number] 07:06:01 Test Item Value Reference Range Interpretation Comments SODIUM (BEAKER) 136 meq/L 136-145 (test code = 381) POTASSIUM 4.9 meq/L 3.5-5.1 (BEAKER) (test code = 379) CHLORIDE (BEAKER) 98 meq/L 98-107 (test code = 382) CO2 (BEAKER) 22 meq/L 22-29 (test code = 355) BLOOD UREA 56 mg/dL 7-21 H NITROGEN (BEAKER) (test code = 354) CREATININE 4.86 mg/dL 0.57-1.25 H (BEAKER) (test code = 358) GLUCOSE RANDOM 140 mg/dL 70-105 H (BEAKER) (test code = 652) CALCIUM (BEAKER) 8.5 mg/dL 8.4-10.2 (test code = 697) EGFR (BEAKER) 12 Interpretatio n of eGFR (test code = mL/min/1.73 values Stage De scription 1092) sq m Result G1 Lamar l or high >=90 G2 Mildly decreased 60-89 G3a Mildl y to moderately 45-5 9 G3b Moderately to s everely 30-44 G4 Severl y decreased 15-29 G5 Kidney failure <15Reported eGF R is based on the CKD-EPI 2020 equation that d oes not use a race coefficientEsti mated GFR is not as accur ate as Creatinine Hannah faye in predicting glom erular filtration rate . Estimated GFR is not appl icable for dialysis patien ts Petroleum Geologist ID - EMCBC W/PLT COUNT & AUTO [id number] 06:02:33 Test Item Value Reference Range Interpretation Comments WHITE BLOOD CELL COUNT (BEAKER) 9.6 K/ L 3.5-10.5 (test code = 775) RED BLOOD CELL COUNT (BEAKER) 2.74 M/ L 4.63-6.08 L (test code = 761) HEMOGLOBIN (BEAKER) (test code = 8.0 GM/DL 13.7-17.5 L 410) HEMATOCRIT (BEAKER) (test code = 27.2 % 40.1-51.0 L 411) MEAN CORPUSCULAR VOLUME (BEAKER) 99 fL 79-92 H (test code = 753) MEAN CORPUSCULAR HEMOGLOBIN 29.2 pg 25.7-32.2 (BEAKER) (test code = 751) MEAN CORPUSCULAR HEMOGLOBIN CONC 29.4 GM/DL 32.3-36.5 L (BEAKER) (test code = 752) RED CELL DISTRIBUTION WIDTH 17.4 % 11.6-14.4 H (BEAKER) (test code = 412) PLATELET COUNT (BEAKER) (test 191 K/CU MM 150-450 code = 756) MEAN PLATELET VOLUME (BEAKER) 9.9 fL 9.4-12.4 (test code = 754) NUCLEATED RED BLOOD CELLS 0 /100 WBC 0-0 (BEAKER) (test code = 413) NEUTROPHILS RELATIVE PERCENT 71 % (BEAKER) (test code = 429) LYMPHOCYTES RELATIVE PERCENT 15 % (BEAKER) (test code = 430) MONOCYTES RELATIVE PERCENT 9 % (BEAKER) (test code = 431) EOSINOPHILS RELATIVE PERCENT 3 % (BEAKER) (test code = 432) BASOPHILS RELATIVE PERCENT 0 % (BEAKER) (test code = 437) NEUTROPHILS ABSOLUTE COUNT 6.80 K/ L 1.78-5.38 H (BEAKER) (test code = 670) LYMPHOCYTES ABSOLUTE COUNT 1.46 K/ L 1.32-3.57 (BEAKER) (test code = 414) MONOCYTES ABSOLUTE COUNT (BEAKER) 0.83 K/ L 0.30-0.82 H (test code = 415) EOSINOPHILS ABSOLUTE COUNT 0.33 K/ L 0.04-0.54 (BEAKER) (test code = 416) BASOPHILS ABSOLUTE COUNT (BEAKER) 0.02 K/ L 0.01-0.08 (test code = 417) IMMATURE GRANULOCYTES-RELATIVE 1.50 % 0.00-1.00 H PERCENT (BEAKER) (test code = 2801) Urinalysis w/Microscopic + Reflex to [id number] 01:02:04 Test Item Value Reference Range Interpretation Comments Color, UA (test code [place] = 5778-6) Clarity, UA (test Cloudy code = 5767-9) Specific [place], UA 1.015 1.001-1.035 (test code = 5811-5) pH, UA (test code = 8.0 5.0-8.0 5803-2) Protein, UA (test 300 mg/dL Negative A code = 59270-4) Glucose, UA (test 150 mg/dL Negative A code = 365) Ketones, UA (test Negative Negative code = 2514-8) Bilirubin, UA (test Negative Negative code = 87556-7) Blood, UA (test code Large Negative A = 22446-5) Nitrite, UA (test Negative Negative code = 5802-4) Leukocytes, UA (test Large Negative A code = 5799-2) Urobilinogen, UA 8 0.2-1.0 H (test code = 44309-9) RBC, UA (test code = See_Comment [Autom ated 12149-0) message] The system which generated this result transmitted reference range : /HPF. The reference range was not used to interpret this result as normal/abnormal . WBC, UA (test code = See_Comment [Autom ated 5821-4) message] The system which generated this result transmitted reference range : /HPF. The reference range was not used to interpret this result as normal/abnormal . Bacteria, UA (test Occasional code = 38859-3) Squam Epithel, UA 22 See_Comment [Automate d (test code = 55627-8) messag e] The system which generated this result transmitted reference range : /HPF. The reference range was not used to interpret this result as normal/abnormal . Specimen Source (test code = 2795) RADHA (test code = RADHA) Petroleum Geologist ID - [auto]Petroleum Geologist ID - tech Lab Interpretation Abnormal (test code = 69320-0) [facility] [id number] 01:02:04 Test Item Value Reference Range Interpretation Comments COLOR (BEAKER) (test code = 470) [place] CLARITY (BEAKER) (test code = 469) [place] SPECIFIC GRAVITY UA (BEAKER) (test 1.015 1.001-1.035 code = 468) PH UA (BEAKER) (test code = 467) 8.0 5.0-8.0 PROTEIN UA (BEAKER) (test code = 300 mg/dL Negative A 464) GLUCOSE UA (BEAKER) (test code = 150 mg/dL Negative A 365) KETONES UA (BEAKER) (test code = Negative Negative 371) BILIRUBIN UA (BEAKER) (test code = Negative Negative 462) BLOOD UA (BEAKER) (test code = Large Negative A 461) NITRITE UA (BEAKER) (test code = Negative Negative 465) LEUKOCYTE ESTERASE UA (BEAKER) Large Negative A (test code = 466) UROBILINOGEN UA (BEAKER) (test 8 0.2-1.0 H code = 463) RBC UA (BEAKER) (test code = 519) > /HPF WBC UA (BEAKER) (test code = 520) > /HPF BACTERIA (BEAKER) (test code = Occasional 517) SQUAMOUS EPITHELIAL (BEAKER) (test 22 /HPF code = 516) SOURCE(BEAKER) (test code = 2795) Petroleum Geologist ID - [auto]Petroleum Geologist ID - techPOCT-GLUCOSE [id number] 21:10:31 Test Item Value Reference Range Interpretation Comments POC-GLUCOSE METER 144 mg/dL 70-110 H : TESTED A T [facility] 6720 (BEAKER) (test code = AYAAN NAVARRO, 1538) 57167: Petroleum Geologist/Techni madina ID = [id number] for SHERINE HAGEN POCT-GLUCOSE [id number] 18:02:17 Test Item Value Reference Range Interpretation Comments POC-GLUCOSE METER 169 mg/dL 70-110 H : TESTED A T [facility] 6720 (BEAKER) (test code = [place], 1538) [address]: Petroleum Geologist/Techni madina ID = [id number] for Flor Romero BASIC METABOLIC [id number] 05:42:37 Test Item Value Reference Range Interpretation Comments SODIUM (BEAKER) 131 meq/L 136-145 L (test code = 381) POTASSIUM 6.1 meq/L 3.5-5.1 HH (BEAKER) (test code = 379) CHLORIDE (BEAKER) 96 meq/L 98-107 L (test code = 382) CO2 (BEAKER) 22 meq/L 22-29 (test code = 355) BLOOD UREA 81 mg/dL 7-21 H NITROGEN (BEAKER) (test code = 354) CREATININE 6.65 mg/dL 0.57-1.25 H (BEAKER) (test code = 358) GLUCOSE RANDOM 94 mg/dL 70-105 (BEAKER) (test code = 652) CALCIUM (BEAKER) 8.6 mg/dL 8.4-10.2 (test code = 697) EGFR (BEAKER) 8 Interpretatio n of eGFR (test code = mL/min/1.73 values Stage De scription 1092) sq m Result G1 Lamar l or high >=90 G2 Mildly decreased 60-89 G3a Mildl y to moderately 45-5 9 G3b Moderately to s everely 30-44 G4 Severl y decreased 15-29 G5 Kidney failure <15Reported eGF R is based on the CKD-EPI 2020 equation that d oes not use a race coefficientEsti mated GFR is not as accur ate as Creatinine Hannah mckinney in predicting glom erular filtration rate . Estimated GFR is not appl icable for dialysis patien ts Petroleum Geologist ID - AAHAMIDCBC W/PLT COUNT & AUTO [id number] 05:25:18 Test Item Value Reference Range Interpretation Comments WHITE BLOOD CELL COUNT (BEAKER) 14.6 K/ L 3.5-10.5 H (test code = 775) RED BLOOD CELL COUNT (BEAKER) 2.97 M/ L 4.63-6.08 L (test code = 761) HEMOGLOBIN (BEAKER) (test code = 8.7 GM/DL 13.7-17.5 L 410) HEMATOCRIT (BEAKER) (test code = 29.3 % 40.1-51.0 L 411) MEAN CORPUSCULAR VOLUME (BEAKER) 99 fL 79-92 H (test code = 753) MEAN CORPUSCULAR HEMOGLOBIN 29.3 pg 25.7-32.2 (BEAKER) (test code = 751) MEAN CORPUSCULAR HEMOGLOBIN CONC 29.7 GM/DL 32.3-36.5 L (BEAKER) (test code = 752) RED CELL DISTRIBUTION WIDTH 17.6 % 11.6-14.4 H (BEAKER) (test code = 412) PLATELET COUNT (BEAKER) (test 225 K/CU MM 150-450 code = 756) MEAN PLATELET VOLUME (BEAKER) 9.9 fL 9.4-12.4 (test code = 754) NUCLEATED RED BLOOD CELLS 0 /100 WBC 0-0 (BEAKER) (test code = 413) NEUTROPHILS RELATIVE PERCENT 76 % (BEAKER) (test code = 429) LYMPHOCYTES RELATIVE PERCENT 13 % (BEAKER) (test code = 430) MONOCYTES RELATIVE PERCENT 7 % (BEAKER) (test code = 431) EOSINOPHILS RELATIVE PERCENT 3 % (BEAKER) (test code = 432) BASOPHILS RELATIVE PERCENT 0 % (BEAKER) (test code = 437) NEUTROPHILS ABSOLUTE COUNT 11.08 K/ L 1.78-5.38 H (BEAKER) (test code = 670) LYMPHOCYTES ABSOLUTE COUNT 1.91 K/ L 1.32-3.57 (BEAKER) (test code = 414) MONOCYTES ABSOLUTE COUNT (BEAKER) 1.01 K/ L 0.30-0.82 H (test code = 415) EOSINOPHILS ABSOLUTE COUNT 0.38 K/ L 0.04-0.54 (BEAKER) (test code = 416) BASOPHILS ABSOLUTE COUNT (BEAKER) 0.02 K/ L 0.01-0.08 (test code = 417) IMMATURE GRANULOCYTES-RELATIVE 1.40 % 0.00-1.00 H PERCENT (BEAKER) (test code = 2801) POCT-GLUCOSE [id number] 20:58:14 Test Item Value Reference Range Interpretation Comments POC-GLUCOSE METER 139 mg/dL 70-110 H : TESTED Muriel Hatfield [facility] 6720 (BEAKER) (test code = [place], 1538) [address]: Petroleum Geologist/Techni madina ID = [id number] for RANDY ESCALONA POCT-GLUCOSE [id number] 16:57:26 Test Item Value Reference Range Interpretation Comments POC-GLUCOSE METER 112 mg/dL 70-110 H : TESTED A T [facility] 6720 (BEAKER) (test code = [facility], 1538) 857[address]: Petroleum Geologist/Techni madina ID = [id number] for NW TAWANDA, LORRAINE POCT-GLUCOSE [id number] 11:34:38 Test Item Value Reference Range Interpretation Comments POC-GLUCOSE METER 114 mg/dL 70-110 H : TESTED A T [facility] 6720 (BEAKER) (test code = [facility], 1538) 29165: Petroleum Geologist/Techni madina ID = [id number] for DIEGO NEFF, LORRAINE POCT-GLUCOSE [id number] 07:32:10 Test Item Value Reference Range Interpretation Comments POC-GLUCOSE METER 93 mg/dL 70-110 : TESTED A T [facility] 6720 (BEAKER) (test code = [facility], 1538) 69930: Petroleum Geologist/Techni madina ID = [id number] for AMBROSE HALL, LORRAINE BASIC METABOLIC [id number] 05:28:23 Test Item Value Reference Range Interpretation Comments SODIUM (BEAKER) 132 meq/L 136-145 L (test code = 381) POTASSIUM 5.6 meq/L 3.5-5.1 H (BEAKER) (test code = 379) CHLORIDE (BEAKER) 95 meq/L 98-107 L (test code = 382) CO2 (BEAKER) 24 meq/L 22-29 (test code = 355) BLOOD UREA 71 mg/dL 7-21 H NITROGEN (BEAKER) (test code = 354) CREATININE 5.46 mg/dL 0.57-1.25 H (BEAKER) (test code = 358) GLUCOSE RANDOM 91 mg/dL 70-105 (BEAKER) (test code = 652) CALCIUM (BEAKER) 8.7 mg/dL 8.4-10.2 (test code = 697) EGFR (BEAKER) 10 Interpretatio n of eGFR (test code = mL/min/1.73 values Stage De scription 1092) sq m Result G1 Lamar l or high >=90 G2 Mildly decreased 60-89 G3a Mildl y to moderately 45-5 9 G3b Moderately to s everely 30-44 G4 Severl y decreased 15-29 G5 Kidney failure <15Reported eGF R is based on the CKD-EPI 2021 equation that d oes not use a race coefficientEsti mated GFR is not as accur ate as Creatinine Hannah mckinney in predicting glom erular filtration rate . Estimated GFR is not appl icable for dialysis patien ts Petroleum Geologist ID - HUA WCBC W/PLT COUNT & AUTO [id number] 05:21:53 Test Item Value Reference Range Interpretation Comments WHITE BLOOD CELL COUNT (BEAKER) 12.3 K/ L 3.5-10.5 H (test code = 775) RED BLOOD CELL COUNT (BEAKER) 3.18 M/ L 4.63-6.08 L (test code = 761) HEMOGLOBIN (BEAKER) (test code = 9.4 GM/DL 13.7-17.5 L 410) HEMATOCRIT (BEAKER) (test code = 31.7 % 40.1-51.0 L 411) MEAN CORPUSCULAR VOLUME (BEAKER) 100 fL 79-92 H (test code = 753) MEAN CORPUSCULAR HEMOGLOBIN 29.6 pg 25.7-32.2 (BEAKER) (test code = 751) MEAN CORPUSCULAR HEMOGLOBIN CONC 29.7 GM/DL 32.3-36.5 L (BEAKER) (test code = 752) RED CELL DISTRIBUTION WIDTH 17.7 % 11.6-14.4 H (BEAKER) (test code = 412) PLATELET COUNT (BEAKER) (test 253 K/CU MM 150-450 code = 756) MEAN PLATELET VOLUME (BEAKER) 9.7 fL 9.4-12.4 (test code = 754) NUCLEATED RED BLOOD CELLS 0 /100 WBC 0-0 (BEAKER) (test code = 413) NEUTROPHILS RELATIVE PERCENT 73 % (BEAKER) (test code = 429) LYMPHOCYTES RELATIVE PERCENT 16 % (BEAKER) (test code = 430) MONOCYTES RELATIVE PERCENT 7 % (BEAKER) (test code = 431) EOSINOPHILS RELATIVE PERCENT 2 % (BEAKER) (test code = 432) BASOPHILS RELATIVE PERCENT 0 % (BEAKER) (test code = 437) NEUTROPHILS ABSOLUTE COUNT 8.93 K/ L 1.78-5.38 H (BEAKER) (test code = 670) LYMPHOCYTES ABSOLUTE COUNT 1.96 K/ L 1.32-3.57 (BEAKER) (test code = 414) MONOCYTES ABSOLUTE COUNT (BEAKER) 0.87 K/ L 0.30-0.82 H (test code = 415) EOSINOPHILS ABSOLUTE COUNT 0.23 K/ L 0.04-0.54 (BEAKER) (test code = 416) BASOPHILS ABSOLUTE COUNT (BEAKER) 0.02 K/ L 0.01-0.08 (test code = 417) IMMATURE GRANULOCYTES-RELATIVE 2.00 % 0.00-1.00 H PERCENT (BEAKER) (test code = 2801) POCT-GLUCOSE [id number] 21:05:27 Test Item Value Reference Range Interpretation Comments POC-GLUCOSE METER 106 mg/dL 70-110 : TESTED A T [facility] 6720 (BEAKER) (test code = [facility], [facility]8) 73071: Petroleum Geologist/Techni madina ID = [id number] for THADDEUS HOLCOMB POCT-GLUCOSE [id number] 17:09:45 Test Item Value Reference Range Interpretation Comments POC-GLUCOSE METER 124 mg/dL 70-110 H : TESTED A T [facility] 6720 (BEAKER) (test code = [facility], 1538) 47008: Petroleum Geologist/Techni madina ID = [id number] for NW SADEU, LORRAINE POCT-GLUCOSE [id number] 12:03:36 Test Item Value Reference Range Interpretation Comments POC-GLUCOSE METER 134 mg/dL 70-110 H : TESTED A T [facility] 6720 (BEAKER) (test code = [facility], 1538) 74116: Petroleum Geologist/Techni madina ID = [id number] for NW AJIAKU, LORRAINE URINALYSIS W/ REFLEX URINE [id number] 11:44:14 Test Item Value Reference Range Interpretation Comments COLOR (BEAKER) (test code = 470) Yellow CLARITY (BEAKER) (test code = 469) Hazy SPECIFIC GRAVITY UA (BEAKER) (test 1.012 1.001-1.035 code = 468) PH UA (BEAKER) (test code = 467) 8.0 5.0-8.0 PROTEIN UA (BEAKER) (test code = 200 mg/dL Negative A 464) GLUCOSE UA (BEAKER) (test code = 300 mg/dL Negative A 365) KETONES UA (BEAKER) (test code = Negative Negative 371) BILIRUBIN UA (BEAKER) (test code = Negative Negative 462) BLOOD UA (BEAKER) (test code = Large Negative A 461) NITRITE UA (BEAKER) (test code = Negative Negative 465) LEUKOCYTE ESTERASE UA (BEAKER) Large Negative A (test code = 466) UROBILINOGEN UA (BEAKER) (test 3 0.2-1.0 H code = 463) RBC UA (BEAKER) (test code = 519) 117 /HPF WBC UA (BEAKER) (test code = 520) 280 /HPF SQUAMOUS EPITHELIAL (BEAKER) (test 13 /HPF code = 516) YEAST (BEAKER) (test code = 1585) Occasional SOURCE(BEAKER) (test code = 0338) Petroleum Geologist ID - [auto]Petroleum Geologist ID - techPOCT-GLUCOSE [id number] 08:43:15 Test Item Value Reference Range Interpretation Comments POC-GLUCOSE METER 123 mg/dL 70-110 H : [facility] (BE[facility]) (test code = [facility] N[place] [facility], 1538) 027[address]: Petroleum Geologist/Techni madina ID = [id number] for NW LORRAINE NEFF BASIC METABOLIC [id number] 05:57:24 Test Item Value Reference Range Interpretation Comments SODIUM (BEAKER) 134 meq/L 136-145 L (test code = 381) POTASSIUM 4.9 meq/L 3.5-5.1 (BEAKER) (test code = 379) CHLORIDE (BEAKER) 96 meq/L 98-107 L (test code = 382) CO2 (BEAKER) 26 meq/L 22-29 (test code = 355) BLOOD UREA 55 mg/dL 7-21 H NITROGEN (BEAKER) (test code = 354) CREATININE 4.62 mg/dL 0.57-1.25 H (BEAKER) (test code = 358) GLUCOSE RANDOM 169 mg/dL 70-105 H (BEAKER) (test code = 652) CALCIUM (BEAKER) 9.1 mg/dL 8.4-10.2 (test code = 697) EGFR (BEAKER) 12 Interpretatio n of eGFR (test code = mL/min/1.73 values Stage D escription 1092) sq m Result G1 Lamar l or high >=90 G2 Mildly decreased 60-89 G3a Mildl y to moderately 45-5 9 G3b Moderately to s everely 30-44 G4 Severl y decreased 15-29 G5 Kidney failure <15Reported eGF R is based on the CKD-EPI 2020 equation that d oes not use a race coefficientEsti mated GFR is not as accur ate as Creatinine Hannah faye in predicting glom erular filtration rate . Estimated GFR is not appl icable for dialysis patien ts Petroleum Geologist ID - HUA WCBC W/PLT COUNT & AUTO [id number] 05:36:44 Test Item Value Reference Range Interpretation Comments WHITE BLOOD CELL COUNT (BEAKER) 13.9 K/ L 3.5-10.5 H (test code = 775) RED BLOOD CELL COUNT (BEAKER) 3.27 M/ L 4.63-6.08 L (test code = 761) HEMOGLOBIN (BEAKER) (test code = 9.6 GM/DL 13.7-17.5 L 410) HEMATOCRIT (BEAKER) (test code = 32.8 % 40.1-51.0 L 411) MEAN CORPUSCULAR VOLUME (BEAKER) 100 fL 79-92 H (test code = 753) MEAN CORPUSCULAR HEMOGLOBIN 29.4 pg 25.7-32.2 (BEAKER) (test code = 751) MEAN CORPUSCULAR HEMOGLOBIN CONC 29.3 GM/DL 32.3-36.5 L (BEAKER) (test code = 752) RED CELL DISTRIBUTION WIDTH 17.6 % 11.6-14.4 H (BEAKER) (test code = 412) PLATELET COUNT (BEAKER) (test 253 K/CU MM 150-450 code = 756) MEAN PLATELET VOLUME (BEAKER) 9.5 fL 9.4-12.4 (test code = 754) NUCLEATED RED BLOOD CELLS 0 /100 WBC 0-0 (BEAKER) (test code = 413) NEUTROPHILS RELATIVE PERCENT 81 % (BEAKER) (test code = 429) LYMPHOCYTES RELATIVE PERCENT 12 % (BEAKER) (test code = 430) MONOCYTES RELATIVE PERCENT 5 % (BEAKER) (test code = 431) EOSINOPHILS RELATIVE PERCENT 0 % (BEAKER) (test code = 432) BASOPHILS RELATIVE PERCENT 0 % (BEAKER) (test code = 437) NEUTROPHILS ABSOLUTE COUNT 11.24 K/ L 1.78-5.38 H (BEAKER) (test code = 670) LYMPHOCYTES ABSOLUTE COUNT 1.68 K/ L 1.32-3.57 (BEAKER) (test code = 414) MONOCYTES ABSOLUTE COUNT (BEAKER) 0.63 K/ L 0.30-0.82 (test code = 415) EOSINOPHILS ABSOLUTE COUNT 0.01 K/ L 0.04-0.54 L (BEAKER) (test code = 416) BASOPHILS ABSOLUTE COUNT (BEAKER) 0.02 K/ L 0.01-0.08 (test code = 417) IMMATURE GRANULOCYTES-RELATIVE 2.40 % 0.00-1.00 H PERCENT (BEAKER) (test code = 2801) POCT-GLUCOSE [id number] 21:11:06 Test Item Value Reference Range Interpretation Comments POC-GLUCOSE METER 161 mg/dL 70-110 H : TESTED A T [facility] 6720 (BEAKER) (test code = [facility], 153) 17867: Petroleum Geologist/Techni madina ID = [id number] for PE RALES, SHERINE POCT-GLUCOSE [id number] 17:04:26 Test Item Value Reference Range Interpretation Comments POC-GLUCOSE METER 199 mg/dL 70-110 H : TESTED A T [facility] 6720 (BEAKER) (test code = [facility], 1538) 63958: Petroleum Geologist/Techni madina ID = [id number] for Pa stran, Kary POCT-GLUCOSE [id number] 12:21:08 Test Item Value Reference Range Interpretation Comments POC-GLUCOSE METER 141 mg/dL 70-110 H : TESTED A T [facility] 6720 (BEAKER) (test code = [facility], 1538) 08723: Petroleum Geologist/Techni madina ID = [id number] for Pa stran, Kary Sputum Culture + Gram [id number] 12:16:04 Test Item Value Reference Range Interpretation Comments Result (test code = 3+ Normal respiratory 6463-4) car present Gram Stain Result 2+ gram positive cocci in (test code = 1123) [facility] [id number] 12:16:04 Test Item Value Reference Range Interpretation Comments CULTURE (BEAKER) 3+ Normal respiratory (test code = 1095) car present GRAM STAIN RESULT 4+ WBCs (BEAKER) (test code = 1123) GRAM STAIN RESULT 0-5 epithelial cells (BEAKER) (test code = 39716) GRAM STAIN RESULT 2+ gram positive cocci (BEAKER) (test code = in clusters 03223) POCT-GLUCOSE [id number] 07:51:20 Test Item Value Reference Range Interpretation Comments POC-GLUCOSE METER 180 mg/dL 70-110 H : TESTED A T [facility] 6720 (BEAKER) (test code = AYAAN Nicolette [facility], 1538) 15619: Petroleum Geologist/Techni madina ID = [id number] for Floyd brock Kary BASIC METABOLIC [id number] 04:35:23 Test Item Value Reference Range Interpretation Comments SODIUM (BEAKER) 137 meq/L 136-145 (test code = 381) POTASSIUM 5.0 meq/L 3.5-5.1 (BEAKER) (test code = 379) CHLORIDE (BEAKER) 99 meq/L 98-107 (test code = 382) CO2 (BEAKER) 28 meq/L 22-29 (test code = 355) BLOOD UREA 31 mg/dL 7-21 H NITROGEN (BEAKER) (test code = 354) CREATININE 3.43 mg/dL 0.57-1.25 H (BEAKER) (test code = 358) GLUCOSE RANDOM 143 mg/dL 70-105 H (BEAKER) (test code = 652) CALCIUM (BEAKER) 9.3 mg/dL 8.4-10.2 (test code = 697) EGFR (BEAKER) 18 Interpretatio n of eGFR (test code = mL/min/1.73 values Stage De scription 1092) sq m Result G1 Lamar l or high >=90 G2 Mildly decreased 60-89 G3a Mildl y to moderately 45-5 9 G3b Moderately to s everely 30-44 G4 Severl y decreased 15-29 G5 Kidney failure <15Reported eGF R is based on the CKD-EPI 2020 equation that d oes not use a race coefficientEsti mated GFR is not as accur ate as Creatinine Hannah mckinney in predicting glom erular filtration rate . Estimated GFR is not appl icable for dialysis patien ts Petroleum Geologist ID - ADMINIRON, TIBC, % SAT. (WITHOUT FERRITIN)2023-03-15 04:33:17 Test Item Value Reference Range Interpretation Comments IRON (BEAKER) (test code = 547) 53.0 ug/dL 40.0-160.0 TOTAL IRON BINDING CAPACITY 205 ug/dL 250-450 L (BEAKER) (test code = 769) IRON % SATURATION (2) (BEAKER) 26 % 20-55 (test code = 2590) Petroleum Geologist ID - ADMINCBC W/PLT COUNT & AUTO [id number] 04:14:28 Test Item Value Reference Range Interpretation Comments WHITE BLOOD CELL COUNT (BEAKER) 12.1 K/ L 3.5-10.5 H (test code = 775) RED BLOOD CELL COUNT (BEAKER) 3.11 M/ L 4.63-6.08 L (test code = 761) HEMOGLOBIN (BEAKER) (test code = 9.1 GM/DL 13.7-17.5 L 410) HEMATOCRIT (BEAKER) (test code = 31.3 % 40.1-51.0 L 411) MEAN CORPUSCULAR VOLUME (BEAKER) 101 fL 79-92 H (test code = 753) MEAN CORPUSCULAR HEMOGLOBIN 29.3 pg 25.7-32.2 (BEAKER) (test code = 751) MEAN CORPUSCULAR HEMOGLOBIN CONC 29.1 GM/DL 32.3-36.5 L (BEAKER) (test code = 752) RED CELL DISTRIBUTION WIDTH 17.2 % 11.6-14.4 H (BEAKER) (test code = 412) PLATELET COUNT (BEAKER) (test 237 K/CU MM 150-450 code = 756) MEAN PLATELET VOLUME (BEAKER) 9.0 fL 9.4-12.4 L (test code = 754) NUCLEATED RED BLOOD CELLS 0 /100 WBC 0-0 (BEAKER) (test code = 413) NEUTROPHILS RELATIVE PERCENT 89 % (BEAKER) (test code = 429) LYMPHOCYTES RELATIVE PERCENT 6 % (BEAKER) (test code = 430) MONOCYTES RELATIVE PERCENT 4 % (BEAKER) (test code = 431) EOSINOPHILS RELATIVE PERCENT 0 % (BEAKER) (test code = 432) BASOPHILS RELATIVE PERCENT 0 % (BEAKER) (test code = 437) NEUTROPHILS ABSOLUTE COUNT 10.68 K/ L 1.78-5.38 H (BEAKER) (test code = 670) LYMPHOCYTES ABSOLUTE COUNT 0.73 K/ L 1.32-3.57 L (BEAKER) (test code = 414) MONOCYTES ABSOLUTE COUNT (BEAKER) 0.45 K/ L 0.30-0.82 (test code = 415) EOSINOPHILS ABSOLUTE COUNT 0.00 K/ L 0.04-0.54 L (BEAKER) (test code = 416) BASOPHILS ABSOLUTE COUNT (BEAKER) 0.01 K/ L 0.01-0.08 (test code = 417) IMMATURE GRANULOCYTES-RELATIVE 1.70 % 0.00-1.00 H PERCENT (BEAKER) (test code = 2801) POCT-GLUCOSE [id number] 21:17:05 Test Item Value Reference Range Interpretation Comments POC-GLUCOSE METER 288 mg/dL 70-110 H : TESTED A T [facility] 6720 (BEAKER) (test code = [facility], 153) 29434: Petroleum Geologist/Techni madina ID = [id number] for SHERINE HAGEN POCT-GLUCOSE [id number] 16:59:41 Test Item Value Reference Range Interpretation Comments POC-GLUCOSE METER 173 mg/dL 70-110 H : TESTED A T [facility] 6720 (BEAKER) (test code = [facility], 153) 62953: Petroleum Geologist/Techni madina ID = [id number] for Pa Kary brock POCT-GLUCOSE [id number] 13:44:27 Test Item Value Reference Range Interpretation Comments POC-GLUCOSE METER 73 mg/dL 70-110 : TESTED A T [facility] 6720 (BEAKER) (test code = [facility], 153) 36747: Petroleum Geologist/Techni madina ID = [id number] for Past ran, Kary [id number] 13:15:16 Test Item Value Reference Range Interpretation Comments Case Report (test code Medical Cytology = 104) Report Case: [id number] Authorizing Provider: Vijay Carvajal MD Collected: 03/13/2023 05:04 AM Ordering Location: [address] Received: 03/13/2023 08:42 AM Service Pathologist: Geoffrey Knutson MD Specimen: Urine, Clean Catch DIAGNOSIS (test code = [id number] 3220) FuZzEwMzNcZnRuYmpcdWMx IHtccnRmMVxlcGljMTAyMD adPZ2gmMsjeTh2iBimTTNa egW2uZRtSMiqu0mkQBT3l9 xcwfedSLYdEBxuLo0tkCIb lJeqGaVuYOKfXUu1bX50TG IoeA8uyHKcEMc8WANkzIUx xpAmTgUkMVZdjHAnhZJ7JK FlUS4vninrCFqpOOrbZHIb mtV1HBIknVXpI7FyZKHwTU 3chcfoPAA6KNvwLXNyNOV7 WmHiAAYif7Phwpt4FbCyvP FyZFxwbGFpblxmczIwIFVS OC9KHRWHLJFJGbNXTHZCSL LvG6nKT0TQEX6oFaboEINh ICAgLSBORUdBVElWRSBGT1 VhYGbIXZCSAoFBOVRYZo5S BIQSDOZIEV7WE2EWJNJTZN DuuBElWXDwQM7bYTMUQ6JX DJQBBLOGDYoUFjmNRK8HHZ bGLlwgFU6IYvdcTXUSMULI QMQWALSCK0NJNEESDSrZBP FORCBCQUNURVJJQSBTRUVO XHBhciAgICAtIFNFRSBDT0 9RKF6CTBXepi68LAY2JaUd t9U2LFM5UJMxPTOcq2ewWH VmbGFuZzEwMzNcZnRuYmpc kSVcJZHhYdCad7dsg838jI Oze3xcQDIoUuX8fLXfEKDq cKKpQ786JPFmZNsrq0duo3 JlUOCfgXCii4Y2JJGAzpoi fIs7bJtiL32fm0Z1DwoyH5 eyKKLkQOWqW5XyYZ2oWEMx Xos8JLQ0QWK2XUCeELLxD6 TxWQ9rRUPcaMIgQGf8a6zb bIqzYYQuEZK4h9vwPWjdmf WzYN6spc2owCp8a3hiyvAu EVUyBQUqdSQISVZmB8KmrO vjNh7ovWs1gChyOzfjZYJ0 Ubi0RQ2wfg57wvu6hGupMR QqmzswXlE2ACpkSZEvntmo CDn5CShaAIHffXZ4VDFsiO DwT2TaHEMrKG7vxaz4GYA5 FDxqZWUmKoM3DKZdiWJpMD XamZzoWDugu522MCY0GmPo MC5pZ6Hbn7N9xS5vqGHxYS HbqSYgRjDfAMFbif8vxXXe EWujy4TqYJW1thA6eRQelV QwVQZcBzB3AZakZB2tdj10 QDUtEZC4fw3vxCMyiQurvb VwcOKgKCtlV3UyVBTgj833 NKSeP3TvAINmv7O3caStDc GkFOUgdOV1vyH8WSWlBW2z uaymt1oiWSwdKJffSHYljy M3buP7VBJupNEpQ9KmvH3k XTNqZO9eizcbn9ssTIK4SY hcPQStTFE9HvOzBZFws3Of cxh6AgBsl3WaiIYkMDxyR0 7qh162QGFptzSrJ3qdlDZa govvkCTahuzeJWhqlmI0QU CvBAqmcqowGCSsVJfdT3ut SpPiJAAemYupLPkxw2YkTH YxXGZzMjJcdGFiXHRhYlx0 XMKhpTIsJTNjLqXwG0idkm goYyPJKDTyl7xrY1spqFPC jVFgC5HaDVrnfeIxYGnuAB arCcOqKQh5XN61YnNjISOl cn19 COMMENT (test code = h5ssvPAlFJWghFAxMFCiS8 3359) vtepZwLTTfpLSaT2Ovjkta PUpyVW2zBL0pkTbocFPowR HlPHToZnRkz5qmy422jEGx m0bnCSWRqijpqFy8sZmrQ0 0vh1I5JywiB11bdVGsXNY5 UYGlCBXwaKQmZENgURT5RN CvmMYaD6dqYRWwVH6gbjjs MTbcFZorMZSuxLO5EKEydV FaW4TaKGRhDWreJPXtsra1 QiDxBj3ypDLsiYsbZFciIV XhZZNbYBneHPLzSpRtR7V5 UB2dcBPbHYYfxQlxuMoljE SqNFlexhCrLTwsHcNxf3Vb biBhcyBhIHVyZXRocmFsIG HbdwXjtEdeFN70KZ9gSFDn f86iq1U5AN5ftFQopHT4NG UsLUPpCKXkakD6xFXbdQVl ksUdjPZ2daAaiL8lAHYjvz 0= CPT Code(s) (test code y9iizRStDYPowDOrVOEvZ5 = 3357) nmsaFpNJJhuKLzR6Xgrmoe WWjuGT5vZY3yeXqanSEhwN XqHHErOhRsq1yvp898eFTz c7buCZAWneyakFr7nOskS7 0ww9L7ZjvxA72swNNwEFL7 BXGiRMMdaDNlTJXuCTS6FX OunNGcQ1vbCMJzZL9tsfwo SZtxANboKVHuaET0VAHjoI WpS7HwZFVsCKecLXVbtrc3 QrKyCj7dcDTwlNtrACxbNX JkXHBsYWluXGZzMjAgODgx MDhccGFyfQ== CLINICAL DATA (test v5uihQUdTOFsgWNySLGbC3 code = 3355) sizkIgADUxmOXfC0Xbrvyu LVuxPJ6fGR4emMzcnHMjaQ OcHYPlDuFvb6aeb170tHRy r0ecKPGLsgiktZl5kTcgZ9 6lr1C9HnxsC74vfRTnQYZ4 JAGaVBUmkGHsCXVyTTR3NN HrjLPgF6hiUSFsMJ7lkhbp JZwfPVhdDZTaaMW9STBucU HfZ2LgLYXdKNryGDEahjm5 ItLiYq4ifCFghUvfXQsnCY JkXHBsYWluXGZzMjAgNzgg lV6hKps+TVx+lSMzw4QlbB Z6gKXdROa+QmxhZGRlciBt QTTaPuU8JNLrGXP8t8RaM1 elzOZyAk0lABooVPRWMeDx YjAgLiBccGFyIFBNSHggb2 ExeAMok8x2z00erCGspQIi CQyiNudnpyqkkMD5hF6xBV SOXXjjODJMXTJoS5SyXITP PWUeiECsnxccFFEqPSO6b2 xpYyBoZWFydCBmYWlsdXJl MNRSS1UZIRPWCPvRVTTZP7 AIHG6zSHpBDJWRYFIhATgK HpkvTDRRIO52dS1dvpfvrH GsUBxoxPAzxvAxOB95SPTa llZfSL7CNSF2mOJzHQyija IhykiqBgLmdE7mzY9ac2Mp x8OwJjXiTEVxWLBuCNZtzv Rgl6CcBWDeYWhuZMMen30g aGFkIHRoZSBvbnNldCBvZi JMCSCbRFFjr16jggLsAZZy IDXtBNRoQIErgK7vn6Feat MplbzxnSdkefHRZN4nJ0Wd m3hxe5ZoXUH4j9kyz1DwDX FuZCBzYWNjdWxhciBpbmZy UTSmdlQfCLQcJV6udX3wkM Zdt8S7bEOeAD8xzMF4f67u RU1xWAV4cpdpLoQ8QdsjaC O1SjFxR67mRJ3kDEH1oMIl zbYyOC2lIIqoURsqx4Labc DwtGSkGJ3dZIZxjp0= SPECIMEN SOURCE (test b5kqsRSmGFBwrNGrVZXoM5 code = 3377) yfanVvOKAnwCLzY2Wwerhk FOqvDW1pXP9tbMfkjSAuhD IpWUYlIfNtt2ehc097lPEt a2unBPXImzlceSh9vHnbP0 3if7T5DwkhX44wbNJhCKQ9 WSBzGYGbdXYuTPXpOFO1BF UptZQbY5rsTMXjXH8scdbt BMyfLKluNXKjrAI1ZFAakD KaA9PvFUXkQQuaCDXbqhm7 ZfUrYf5lvSCxwWjxHJwwRR JkXHBsYWluXGZzMjAgVVJJ TkUsIENMRUFOIENBVENIXH Bhcn0= GROSS DESCRIPTION (test l3ghaZVmXUHnoZEEMHEyOI code = [id number]) SfBT8uaSsubId2kTikXXUa utV6yIIvVTmdk4sxOMC9f6 qoefBJWulpFFSdJG0hEVam IKJaOO1pAkInVAHzYfWyNB BhcGVydzEyMjQwXHBhcGVy zXT3IUCgLY6lgesrRXuiVL fyAOUybiD7OLMqpYEeI9Ue JCRwDE3cxvglHCJ9CJCVCu ikUl5wtQSooPcfTxIqIhGw YXJzZXQwXGZuaWwgQXJpYW i2lJ0PArbmYPJ4SEFPJxga HcifyHudk4QhnXQmPFUpRJ xcaWQgNTEwMDAgXFxkYiBP QaOaRtFaBfYpSUt5YZUtRB l6QRopDdHFQHT7Qps8NJry MNn2QTgkUSenbKShSDVeFU NkJOCjJRtsjeC0s7zqOXFc aXSkAYO7RNvvf4paQCofAF A2DTSlGkPnQUBwYT7IYrEd PDAyEWF9VXz5PsT7QYt9KR IQDuSlIgYuAjJ7CpY6CWSd ZEk0CSb0WTuABtZ2Haj3By OiMdfnNOK7NUUqKYu1IMKv XFxzcyAzIFxcZmwgXFxuY3 1ccGFyZCANClxwbGFpblxm maLsNAKjMENxrP8wQNHYiK VhbiBDYXRjaFxwYXIgDQpc cGFyZCANClxwbGFpblxmcz HoZNx5plKuCCWrrIKWQOM1 JT7oUSCFNlffoTBgSSMzcW msXIcimF0uTHEzMuZyFTHl T8whJLSvVD3YXIWcCxOsNk BiSCv5BENaHmQjwNevzVZf fF04UINfsSpfBsYwmxYvHU UtUNW6YOV8qQ2wrHaoqu6R XCDfbNKHNPG0ZQ6wMFkwAQ YlD5IiP2RkraE7d6sznQzj k5YnyYDzHD0nzQJsFF1PXA BhcmQgDQpcZnMyMiANCn0= MICROSCOPIC DESCRIPTION u4gunREkLMZamBWfBHZsU7 (test code = 3371) xlhdCaJJUhhWZvK7Gbaixg FZxzAA9wIY8ysOrixRRplW JrVKUqHePke3qys877wSZq a3txYODZuthvfLm2jIxqN2 6ao0C8OtrmB53slQBxBMQ2 GQPmVUUiaWFzSBVoCAK2YP VxlQOcK8dlWWScPW8dqpck UDmlBQwwAGKwmIU0ZQLhxQ YgH0IvVZRgQSlzLNJfvfy1 GfQbPl4npVRpxPucVOfnFH JkXHBsYWluXGZzMjAgUGVy Je0wnTQnEizqJWOxoVCpCC xwYXJ9 STATEMENT OF ADEQUACY Satisfactory (test code = 2757) Gross assessment was [facility] performed at ([facility], = 2777) Department of Pathology, [address] [place] [id number], Technical component was [facility] performed at ([facility], = 2778) Department of Pathology, [address] [place] [id number], Professional component [facility] was performed at ([facility], code = 2779) Department of Pathology, [address] [place] [id number], [facility]:15:16Medical Cytology Report Case: [id number] Authorizing Provider: Vijay Carvajal MD Collected: 03/13/2023 05:04 AM Ordering Location: [address] Received: 03/13/2023 08:42 AM Service Pathologist: Geoffrey Knutson MD Specimen: Urine, Clean Catch URINE, CLEAN CATCH (CYTOSPIN): - NEGATIVE FOR HIGH GRADE UROTHELIAL NEOPLASIA - MARKED ACUTE INFLAMMATION, MANY MATURE SQUAMOUS CELLS AND BACTERIA SEEN - SEE COMMENT Signing Pathologist Direct Phone Line: [phone] signed by Geoffrey Knutson MD on 03/14/2023 at 1:15 PMSquamous epithelial cells may be seen as a urethral contaminant or from squamous metaplasia in the urinary tract. [id number] y.o. M present with Bladder mass: 5 cm suspicious for TCC . PMHx of paroxysmal atrial fibrillation, BPH, CAD s/p PCI, chronic diastolic heart failure, COPD, DMII, ESRD on HD, HLD, HTN, PAD who initially presented to OSH with worsening shortness of breath and orthopnea. He also had the onset of RLQ abdominal and back pain starting this AM. CT showed fusiform and saccular infrarenal abdominal aortic aneurysm, measuring 6.7 x 5.2 cm. No evidence of klarissa k or rupture. URINE, CLEAN CATCHA. Urine, Clean CatchReceived 25 ml yellow fluid; prepared 4 cytospinsPerformed.[facility]actoryB[facility], [facility] of Pathology, [address] [place] [address], [facility], [facility] of [facility]ology, [address] [place] [address], [facility], [facility] of [facility]ology, [address] [place] [address], VXHPOK CULTURE + GRAM [id number] 12:09:38 Test Item Value Reference Range Interpretation Comments CULTURE (BEAKER) A 4+ Escheric hia (test code = coliESBL Positi ve 1095) BETA LACTAMASE Negative (BEAKER) (test code = 1953) GRAM STAIN RESULT 2+ WBCs (BEAKER) (test code = 1123) GRAM STAIN RESULT 0-5 epithelial (BEAKER) (test cells code = 957729) GRAM STAIN RESULT 2+ gram negative (BEAKER) (test rods code = 971776) 1+ Normal respiratory car presentBASIC METABOLIC [id number] 04:48:59 Test Item Value Reference Range Interpretation Comments SODIUM (BEAKER) 136 meq/L 136-145 (test code = 381) POTASSIUM 4.9 meq/L 3.5-5.1 (BEAKER) (test code = 379) CHLORIDE (BEAKER) 99 meq/L 98-107 (test code = 382) CO2 (BEAKER) 22 meq/L 22-29 (test code = 355) BLOOD UREA 54 mg/dL 7-21 H NITROGEN (BEAKER) (test code = 354) CREATININE 5.31 mg/dL 0.57-1.25 H (BEAKER) (test code = 358) GLUCOSE RANDOM 148 mg/dL 70-105 H (BEAKER) (test code = 652) CALCIUM (BEAKER) 9.2 mg/dL 8.4-10.2 (test code = 697) EGFR (BEAKER) 11 Interpretatio n of eGFR (test code = mL/min/1.73 values Stage De scription 1092) sq m Result G1 Lamar l or high >=90 G2 Mildly decreased 60-89 G3a Mildl y to moderately 45-5 9 G3b Moderately to s everely 30-44 G4 Severl y decreased 15-29 G5 Kidney failure <15Reported eGF R is based on the CKD-EPI 2020 equation that d oes not use a race coefficientEsti mated GFR is not as accur ate as Creatinine Hannah faye in predicting glom erular filtration rate . Estimated GFR is not appl icable for dialysis patien ts Petroleum Geologist ID - MARCOCBC W/PLT COUNT & AUTO [id number] 04:25:56 Test Item Value Reference Range Interpretation Comments WHITE BLOOD CELL COUNT (BEAKER) 12.7 K/ L 3.5-10.5 H (test code = 775) RED BLOOD CELL COUNT (BEAKER) 2.83 M/ L 4.63-6.08 L (test code = 761) HEMOGLOBIN (BEAKER) (test code = 8.3 GM/DL 13.7-17.5 L 410) HEMATOCRIT (BEAKER) (test code = 28.7 % 40.1-51.0 L 411) MEAN CORPUSCULAR VOLUME (BEAKER) 101 fL 79-92 H (test code = 753) MEAN CORPUSCULAR HEMOGLOBIN 29.3 pg 25.7-32.2 (BEAKER) (test code = 751) MEAN CORPUSCULAR HEMOGLOBIN CONC 28.9 GM/DL 32.3-36.5 L (BEAKER) (test code = 752) RED CELL DISTRIBUTION WIDTH 16.8 % 11.6-14.4 H (BEAKER) (test code = 412) PLATELET COUNT (BEAKER) (test 237 K/CU MM 150-450 code = 756) MEAN PLATELET VOLUME (BEAKER) 9.6 fL 9.4-12.4 (test code = 754) NUCLEATED RED BLOOD CELLS 0 /100 WBC 0-0 (BEAKER) (test code = 413) NEUTROPHILS RELATIVE PERCENT 84 % (BEAKER) (test code = 429) LYMPHOCYTES RELATIVE PERCENT 10 % (BEAKER) (test code = 430) MONOCYTES RELATIVE PERCENT 5 % (BEAKER) (test code = 431) EOSINOPHILS RELATIVE PERCENT 0 % (BEAKER) (test code = 432) BASOPHILS RELATIVE PERCENT 0 % (BEAKER) (test code = 437) NEUTROPHILS ABSOLUTE COUNT 10.72 K/ L 1.78-5.38 H (BEAKER) (test code = 670) LYMPHOCYTES ABSOLUTE COUNT 1.24 K/ L 1.32-3.57 L (BEAKER) (test code = 414) MONOCYTES ABSOLUTE COUNT (BEAKER) 0.58 K/ L 0.30-0.82 (test code = 415) EOSINOPHILS ABSOLUTE COUNT 0.01 K/ L 0.04-0.54 L (BEAKER) (test code = 416) BASOPHILS ABSOLUTE COUNT (BEAKER) 0.01 K/ L 0.01-0.08 (test code = 417) IMMATURE GRANULOCYTES-RELATIVE 1.30 % 0.00-1.00 H PERCENT (BEAKER) (test code = 2801) POCT-GLUCOSE [id number] 20:59:12 Test Item Value Reference Range Interpretation Comments POC-GLUCOSE METER 216 mg/dL 70-110 H : TESTED A T [facility] 6720 (BEAKER) (test code = [facility], 153) 16418: Petroleum Geologist/Techni madina ID = [id number] for SHERINE HAGEN POCT-GLUCOSE [id number] 16:25:54 Test Item Value Reference Range Interpretation Comments POC-GLUCOSE METER 165 mg/dL 70-110 H : TESTED A T [facility] 6720 (BEAKER) (test code = [facility], 153) 41765: Petroleum Geologist/Techni madina ID = [id number] for NW AJIAKU, LORRAINE POCT-GLUCOSE [id number] 12:42:49 Test Item Value Reference Range Interpretation Comments POC-GLUCOSE METER 162 mg/dL 70-110 H : TESTED A T [facility] 6720 (BEAKER) (test code = [facility], 153) 27544: Petroleum Geologist/Techni madina ID = [id number] for NW AJIAKU, LORRAINE POCT-GLUCOSE [id number] 07:51:34 Test Item Value Reference Range Interpretation Comments POC-GLUCOSE METER 122 mg/dL 70-110 H : TESTED A T [facility] 6720 (BEAKER) (test code = [facility], 153) 33218: Petroleum Geologist/Techni madina ID = [id number] for NW AJIAKU, LORRAINE CBC W/PLT COUNT & AUTO [id number] 04:59:48 Test Item Value Reference Range Interpretation Comments WHITE BLOOD CELL COUNT (BEAKER) 11.5 K/ L 3.5-10.5 H (test code = 775) RED BLOOD CELL COUNT (BEAKER) 2.65 M/ L 4.63-6.08 L (test code = 761) HEMOGLOBIN (BEAKER) (test code = 7.6 GM/DL 13.7-17.5 L 410) HEMATOCRIT (BEAKER) (test code = 26.5 % 40.1-51.0 L 411) MEAN CORPUSCULAR VOLUME (BEAKER) 100 fL 79-92 H (test code = 753) MEAN CORPUSCULAR HEMOGLOBIN 28.7 pg 25.7-32.2 (BEAKER) (test code = 751) MEAN CORPUSCULAR HEMOGLOBIN CONC 28.7 GM/DL 32.3-36.5 L (BEAKER) (test code = 752) RED CELL DISTRIBUTION WIDTH 16.5 % 11.6-14.4 H (BEAKER) (test code = 412) PLATELET COUNT (BEAKER) (test 226 K/CU MM 150-450 code = 756) MEAN PLATELET VOLUME (BEAKER) 9.7 fL 9.4-12.4 (test code = 754) NUCLEATED RED BLOOD CELLS 0 /100 WBC 0-0 (BEAKER) (test code = 413) NEUTROPHILS RELATIVE PERCENT 87 % (BEAKER) (test code = 429) LYMPHOCYTES RELATIVE PERCENT 8 % (BEAKER) (test code = 430) MONOCYTES RELATIVE PERCENT 5 % (BEAKER) (test code = 431) EOSINOPHILS RELATIVE PERCENT 0 % (BEAKER) (test code = 432) BASOPHILS RELATIVE PERCENT 0 % (BEAKER) (test code = 437) NEUTROPHILS ABSOLUTE COUNT 9.98 K/ L 1.78-5.38 H (BEAKER) (test code = 670) LYMPHOCYTES ABSOLUTE COUNT 0.89 K/ L 1.32-3.57 L (BEAKER) (test code = 414) MONOCYTES ABSOLUTE COUNT (BEAKER) 0.53 K/ L 0.30-0.82 (test code = 415) EOSINOPHILS ABSOLUTE COUNT 0.00 K/ L 0.04-0.54 L (BEAKER) (test code = 416) BASOPHILS ABSOLUTE COUNT (BEAKER) 0.01 K/ L 0.01-0.08 (test code = 417) IMMATURE GRANULOCYTES-RELATIVE 0.70 % 0.00-1.00 PERCENT (BEAKER) (test code = 2801) BASIC METABOLIC [id number] 04:52:23 Test Item Value Reference Range Interpretation Comments SODIUM (BEAKER) 136 meq/L 136-145 (test code = 381) POTASSIUM 4.3 meq/L 3.5-5.1 (BEAKER) (test code = 379) CHLORIDE (BEAKER) 99 meq/L 98-107 (test code = 382) CO2 (BEAKER) 28 meq/L 22-29 (test code = 355) BLOOD UREA 37 mg/dL 7-21 H NITROGEN (BEAKER) (test code = 354) CREATININE 3.87 mg/dL 0.57-1.25 H (BEAKER) (test code = 358) GLUCOSE RANDOM 122 mg/dL 70-105 H (BEAKER) (test code = 652) CALCIUM (BEAKER) 8.9 mg/dL 8.4-10.2 (test code = 697) EGFR (BEAKER) 15 Interpretatio n of eGFR (test code = mL/min/1.73 values Stage De scription 1092) sq m Result G1 Lamar l or high >=90 G2 Mildly decreased 60-89 G3a Mildl y to moderately 45-5 9 G3b Moderately to s everely 30-44 G4 Severl y decreased 15-29 G5 Kidney failure <15Reported eGF R is based on the CKD-EPI 2020 equation that d oes not use a race coefficientEsti mated GFR is not as accur ate as Creatinine Hannah faye in predicting glom erular filtration rate . Estimated GFR is not appl icable for dialysis patien ts Petroleum Geologist ID - ADMINURINALYSIS W/ REFLEX URINE [id number] 03:41:41 Test Item Value Reference Range Interpretation Comments COLOR (BEAKER) (test code = 470) Yellow CLARITY (BEAKER) (test code = 469) Cloudy SPECIFIC GRAVITY UA (BEAKER) (test 1.012 1.001-1.035 code = 468) PH UA (BEAKER) (test code = 467) 8.0 5.0-8.0 PROTEIN UA (BEAKER) (test code = 300 mg/dL Negative A 464) GLUCOSE UA (BEAKER) (test code = 300 mg/dL Negative A 365) KETONES UA (BEAKER) (test code = Negative Negative 371) BILIRUBIN UA (BEAKER) (test code = Negative Negative 462) BLOOD UA (BEAKER) (test code = 461) Small Negative A NITRITE UA (BEAKER) (test code = Negative Negative 465) LEUKOCYTE ESTERASE UA (BEAKER) Large Negative A (test code = 466) UROBILINOGEN UA (BEAKER) (test code 0.2 0.2-1.0 = 463) RBC UA (BEAKER) (test code = 519) 56 /HPF WBC UA (BEAKER) (test code = 520) > /HPF BACTERIA (BEAKER) (test code = 517) Many SQUAMOUS EPITHELIAL (BEAKER) (test 33 /HPF code = 516) SOURCE(BEAKER) (test code = 2795) Petroleum Geologist ID - [auto]Petroleum Geologist ID - techPOCT-GLUCOSE [id number] 22:06:01 Test Item Value Reference Range Interpretation Comments POC-GLUCOSE METER 280 mg/dL 70-110 H : TESTED A T [facility] 6720 (BEAKER) (test code = [facility], 1538) 78786: Petroleum Geologist/Techni madina ID = [id number] for THADDEUS HOLCOMB POCT-GLUCOSE [id number] 16:33:40 Test Item Value Reference Range Interpretation Comments POC-GLUCOSE METER 193 mg/dL 70-110 H : TESTED A T [facility] 6720 (BEAKER) (test code = [facility], 1538) 87515: Petroleum Geologist/Techni madina ID = [id number] for Haley Alexandra XR CHEST 1 VIEW PORTABLE / [id number] 13:40:36 [facility] : 1945 Sex: MCLINICAL HISTORY: AAATECHNIQUE: 1 view of the chest.COMPARISON: 03/11/2023IMPRESSION:Right central line unchanged. Mildly prominent lung markings unchanged.No significant pleural fluid. The cardiomediastinal silhouette ismagnified by technique.Electronically Signed By: Perez Mortensen03/12/2023 13:42 CDTWorkstation Name: [id number]- GLUCOSE [id number] 11:15:57 Test Item Value Reference Range Interpretation Comments POC-GLUCOSE METER 94 mg/dL 70-110 : TESTED A T [facility] 6720 (BEAKER) (test code = [employer] [facility], 1538) 74386: Petroleum Geologist/Techni madina ID = [id number] for Jennifer mariambetsy Kristen POCT-GLUCOSE [id number] 09:10:40 Test Item Value Reference Range Interpretation Comments POC-GLUCOSE METER 125 mg/dL 70-110 H : TESTED A T [facility] 6720 (BEAKER) (test code = [employer] [facility], 1538) 84071: Petroleum Geologist/Techni madina ID = [id number] for Kristen Tate BASIC METABOLIC [id number] 06:59:21 Test Item Value Reference Range Interpretation Comments SODIUM (BEAKER) 136 meq/L 136-145 (test code = 381) POTASSIUM 5.5 meq/L 3.5-5.1 H (BEAKER) (test code = 379) CHLORIDE (BEAKER) 101 meq/L 98-107 (test code = 382) CO2 (BEAKER) 23 meq/L 22-29 (test code = 355) BLOOD UREA 44 mg/dL 7-21 H NITROGEN (BEAKER) (test code = 354) CREATININE 5.39 mg/dL 0.57-1.25 H (BEAKER) (test code = 358) GLUCOSE RANDOM 222 mg/dL 70-105 H (BEAKER) (test code = 652) CALCIUM (BEAKER) 9.1 mg/dL 8.4-10.2 (test code = 697) EGFR (BEAKER) 10 Interpretatio n of eGFR (test code = mL/min/1.73 values Stage De scription 1092) sq m Result G1 Lamar l or high >=90 G2 Mildly decreased 60-89 G3a Mildl y to moderately 45-5 9 G3b Moderately to s everely 30-44 G4 Severl y decreased 15-29 G5 Kidney failure <15Reported eGF R is based on the CKD-EPI 2020 equation that d oes not use a race coefficientEsti mated GFR is not as accur ate as Creatinine Hannah faye in predicting glom erular filtration rate . Estimated GFR is not appl icable for dialysis patien ts Petroleum Geologist ID - ADMINOperator ID - [id number] 06:03:18 Test Item Value Reference Range Interpretation Comments PARTIAL THROMBOPLASTIN TIME 40.2 seconds 22.5-36.0 H (BEAKER) (test code = 760) PROTHROMBIN TIME/[id number] 06:02:36 Test Item Value Reference Range Interpretation Comments PROTIME (BEAKER) (test code = 16.5 seconds 11.9-14.2 H 759) INR (BEAKER) (test code = 370) 1.36 <=5.90 RECOMMENDED COUMADIN/WARFARIN INR THERAPY RANGESSTANDARD DOSE: 2.0 - 3.0 Includes: PROPHYLAXIS for venous thrombosis, systemic embolization; TREATMENT for venous thrombosis and/or pulmonary embolus.HIGH RISK: Target INR is 2.5-3.5 for patients with mechanical heart valves.CBC W/PLT COUNT & AUTO [id number] 05:55:49 Test Item Value Reference Range Interpretation Comments WHITE BLOOD CELL COUNT (BEAKER) 10.8 K/ L 3.5-10.5 H (test code = 775) RED BLOOD CELL COUNT (BEAKER) 2.89 M/ L 4.63-6.08 L (test code = 761) HEMOGLOBIN (BEAKER) (test code = 8.4 GM/DL 13.7-17.5 L 410) HEMATOCRIT (BEAKER) (test code = 29.5 % 40.1-51.0 L 411) MEAN CORPUSCULAR VOLUME (BEAKER) 102 fL 79-92 H (test code = 753) MEAN CORPUSCULAR HEMOGLOBIN 29.1 pg 25.7-32.2 (BEAKER) (test code = 751) MEAN CORPUSCULAR HEMOGLOBIN CONC 28.5 GM/DL 32.3-36.5 L (BEAKER) (test code = 752) RED CELL DISTRIBUTION WIDTH 16.4 % 11.6-14.4 H (BEAKER) (test code = 412) PLATELET COUNT (BEAKER) (test 237 K/CU MM 150-450 code = 756) MEAN PLATELET VOLUME (BEAKER) 9.5 fL 9.4-12.4 (test code = 754) NUCLEATED RED BLOOD CELLS 0 /100 WBC 0-0 (BEAKER) (test code = 413) NEUTROPHILS RELATIVE PERCENT 90 % (BEAKER) (test code = 429) LYMPHOCYTES RELATIVE PERCENT 8 % (BEAKER) (test code = 430) MONOCYTES RELATIVE PERCENT 1 % (BEAKER) (test code = 431) EOSINOPHILS RELATIVE PERCENT 0 % (BEAKER) (test code = 432) BASOPHILS RELATIVE PERCENT 0 % (BEAKER) (test code = 437) NEUTROPHILS ABSOLUTE COUNT 9.68 K/ L 1.78-5.38 H (BEAKER) (test code = 670) LYMPHOCYTES ABSOLUTE COUNT 0.87 K/ L 1.32-3.57 L (BEAKER) (test code = 414) MONOCYTES ABSOLUTE COUNT (BEAKER) 0.13 K/ L 0.30-0.82 L (test code = 415) EOSINOPHILS ABSOLUTE COUNT 0.00 K/ L 0.04-0.54 L (BEAKER) (test code = 416) BASOPHILS ABSOLUTE COUNT (BEAKER) 0.01 K/ L 0.01-0.08 (test code = 417) IMMATURE GRANULOCYTES-RELATIVE 0.80 % 0.00-1.00 PERCENT (BEAKER) (test code = 2801) Urinalysis w/[id number] 21:43:26 Test Item Value Reference Range Interpretation Comments Color, UA (test code [place] = 5778-6) Clarity, UA (test Cloudy code = 5767-9) Specific Desmet, UA 1.016 1.001-1.035 (test code = 5811-5) pH, UA (test code = 8.0 5.0-8.0 5803-2) Protein, UA (test >600 mg/dL Negative A code = 28886-3) Glucose, UA (test Negative Negative code = 365) Ketones, UA (test Negative Negative code = 2514-8) Bilirubin, UA (test Negative Negative code = 41679-3) Blood, UA (test code Moderate Negative A = 02182-2) Nitrite, UA (test Negative Negative code = 5802-4) Leukocytes, UA (test Large Negative A code = 5799-2) Urobilinogen, UA 0.2 0.2-1.0 (test code = 07756-0) RBC, UA (test code = 104 See_Comment [Autom ated 05765-1) message] The system which generated this result transmit jose reference range : /HPF. The reference range was not used to interpret this result as normal/abnormal . WBC, UA (test code = 2160 See_Comment [Autom ated 5821-4) message] The system which generated this result transmit jose reference range : /HPF. The reference range was not used to interpret this result as normal/abnormal . Bacteria, UA (test Many code = 52947-6) Squam Epithel, UA 11 See_Comment [Automate d (test code = 89749-1) messag e] The system which generated this result transmit jose reference range : /HPF. The reference range was not used to interpret this result as normal/abnormal . Specimen Source (test Urine, Clean code = 2795) Catch RADHA (test code = RADHA) Petroleum Geologist ID - [auto]Petroleum Geologist ID - tech Lab Interpretation Abnormal (test code = 03837-1) [facility] [id number] 21:43:26 Test Item Value Reference Range Interpretation Comments COLOR (BEAKER) (test code [place] = 470) CLARITY (BEAKER) (test Cloudy code = 469) SPECIFIC GRAVITY UA 1.016 1.001-1.035 (BEAKER) (test code = 468) PH UA (BEAKER) (test code 8.0 5.0-8.0 = 467) PROTEIN UA (BEAKER) (test >600 mg/dL Negative A code = 464) GLUCOSE UA (BEAKER) (test Negative Negative code = 365) KETONES UA (BEAKER) (test Negative Negative code = 371) BILIRUBIN UA (BEAKER) Negative Negative (test code = 462) BLOOD UA (BEAKER) (test Moderate Negative A code = 461) NITRITE UA (BEAKER) (test Negative Negative code = 465) LEUKOCYTE ESTERASE UA Large Negative A (BEAKER) (test code = 466) UROBILINOGEN UA (BEAKER) 0.2 0.2-1.0 (test code = 463) RBC UA (BEAKER) (test code 104 /HPF = 519) WBC UA (BEAKER) (test code 2160 /HPF = 520) BACTERIA (BEAKER) (test Many code = 517) SQUAMOUS EPITHELIAL 11 /HPF (BEAKER) (test code = 516) SOURCE(BEAKER) (test code Urine, Clean Catch = 2795) Petroleum Geologist ID - [auto]Petroleum Geologist ID - techPOCT-GLUCOSE [id number] 20:53:29 Test Item Value Reference Range Interpretation Comments POC-GLUCOSE METER 132 mg/dL 70-110 H : TESTED A T [facility] 6720 (BEAKER) (test code = AYAAN Will [facility], 1538) 29960: Petroleum Geologist/Techni madina ID = [id number] for KASSI HORTA Respiratory [id number] 20:11:58 Test Item Value Reference Range Interpretation Comments Human Metapneumovirus Not detected Not detected, (test code = 47225-2) Equivocal Rhinovirus (test code = Not detected Not detected, 49159-6) Equivocal INFLUENZA A (NO Not detected Not detected, SUBTYPE) (test code = Equivocal 07833-5) Influenza A subtype H1 (test code = 17389-2) Influenza A Subtype H3 (test code = 84096-2) Influenza A Subtype H1-2009 (test code = 99013-5) Influenza B (test code Not detected Not detected, = 04917-9) Equivocal Respiratory Syncytial Not detected Not detected, Virus (test code = Equivocal 23856-4) Parainfluenza Virus 1 Not detected Not detected, (test code = 40144-7) Equivocal Parainfluenza Virus 2 Not detected Not detected, (test code = 34730-3) Equivocal Parainfluenza virus 3 Not detected Not detected, (test code = 13352-4) Equivocal Parainfluenza Virus 4 Not detected Not detected, (test code = 37829-2) Equivocal Adenovirus (test code = Not detected Not detected, 41011-2) Equivocal Coronavirus 229E (test Not detected Not detected, code = 88074-1) Equivocal Coronavirus HKU1 (test Not detected Not detected, code = 04091-5) Equivocal Coronavirus NL63 (test Not detected Not detected, code = 77412-8) Equivocal Coronavirus OC43 (test Not detected Not detected, code = 68872-0) Equivocal Bordetella Pertussis Not detected Not detected, (test code = 61180-4) Equivocal Chlamydophila Not detected Not detected, Pneumoniae (test code = Equivocal 73606-7) Mycoplasma Pneumoniae Not detected Not detected, (test code = 67824-8) Equivocal Severe Acute Not detected Not detected, Bulpesvmhic-RlG-4 (test Equivocal code = 26380-4) Bordtella Parapertussis Not detected Not detected, (test code = 95729-3) Equivocal RADHA (test code = RADHA) Other viruses and bacteria not targeted by this PCR panel cannot be excluded; therefore clinical correlation and follow up of serology, culture results, and other molecular studies is required. The results are not intended to be used as the sole means for clinical diagnosis or patient management decisions. This sample was tested at the [facility] Molecular Diagnostics Laboratory using the AldagenArray Respiratory Panel. It is FDA cleared and has been verified and approved by the [facility] Molecular Diagnostics Laboratory for clinical use on nasopharyngeal swab specimens. The performance of the FilmArray RP has not been established in individuals who received influenza vaccine. Recent administration of a nasal influenza vaccine may cause false positive results for Influenza A and/orInfluenza B. [facility] [id number] 20:11:58 Test Item Value Reference Range Interpretation Comments HUMAN METAPNEUMOVIRUS Not detected Not detected, (BEAKER) (test code = 2683) Equivocal RHINOVIRUS (BEAKER) (test Not detected Not detected, code = 2684) Equivocal INFLUENZA A (BEAKER) (test Not detected Not detected, code = 2685) Equivocal INFLUENZA A (NO SUBTYPE) (test code = 3606) INFLUENZA A SUBTYPE H1 (BEAKER) (test code = 2686) INFLUENZA A SUBTYPE H3 (BEAKER) (test code = 2687) INFLUENZA A SUBTYPE H1-2009 (BEAKER) (test code = 3198) INFLUENZA B (BEAKER) (test Not detected Not detected, code = 2688) Equivocal RESPIRATORY SYNCYTIAL VIRUS Not detected Not detected, (BEAKER) (test code = 3199) Equivocal PARAINFLUENZA VIRUS 1 Not detected Not detected, (BEAKER) (test code = 2691) Equivocal PARAINFLUENZA VIRUS 2 Not detected Not detected, (BEAKER) (test code = 2692) Equivocal PARAINFLUENZA VIRUS 3 Not detected Not detected, (BEAKER) (test code = 2693) Equivocal PARAINFLUENZA VIRUS 4 Not detected Not detected, (BEAKER) (test code = 3200) Equivocal ADENOVIRUS (BEAKER) (test Not detected Not detected, code = 2694) Equivocal CORONAVIRUS 229E (BEAKER) Not detected Not detected, (test code = 3201) Equivocal CORONAVIRUS HKU1 (BEAKER) Not detected Not detected, (test code = 3202) Equivocal CORONAVIRUS NL63 (BEAKER) Not detected Not detected, (test code = 3203) Equivocal CORONAVIRUS OC43 (BEAKER) Not detected Not detected, (test code = 3204) Equivocal BORDETELLA PERTUSSIS Not detected Not detected, (BEAKER) (test code = 3205) Equivocal CHLAMYDOPHILA PNEUMONIAE Not detected Not detected, (BEAKER) (test code = 3206) Equivocal MYCOPLASMA PNEUMONIAE Not detected Not detected, (BEAKER) (test code = 3207) Equivocal SEVERE ACUTE RESPIRATORY Not detected Not detected, [id number] Equivocal (test code = 3097189) BORDETELLA PARAPERTUSSIS Not detected Not detected, (BKR) (test code = 5175948) Equivocal Other viruses and bacteria not targeted by this PCR panel cannot be excluded; therefore clinical correlation and follow up of serology, culture results, and other molecular studies is required. The results are not intended to be used as the sole means for clinical diagnosis or patient management decisions. This sample was tested at the [facility] Molecular Diagnostics Laboratory using the [employer] FilmArray Respiratory Panel. It is FDA cleared and has been verified and approved by the [facility] Molecular Diagnostics Laboratory for clinical use on nasopharyngeal swab specimens.The performance of the FilmArrayRP has not been established in individuals who received influenza vaccine. Recent administration of a nasal influenza vaccine may cause false positive results for Influenza A and/orInfluenza B.POCT-GLUCOSE [id number] 17:18:26 Test Item Value Reference Range Interpretation Comments POC-GLUCOSE METER 98 mg/dL 70-110 : TESTED A T [facility] 6720 (GRISELDA) (test code = [place], 1538) [address]: Petroleum Geologist/Techni madina ID = [id number] for WILL JANE BOOTHE XR CHEST 1 VIEW PORTABLE / [id number] 13:45:41 [facility] : 1945 Sex: MCLINICAL HISTORY: AAATECHNIQUE: 1 view of the chest.COMPARISON: 03/10/2023IMPRESSION:Right central line unchanged. Prominence of the pulmonary vasculatureand bilateral interstitial lung markings unchanged.Blunting of leftcostophrenic angle is noted. The cardiomediastinal silhouette ismagnified by technique.Electronically Signed By: Perez Mortensen03/11/2023 13:47 CDTWorkstation Name: [id number] GLUCOSE [id number] 11:38:51 Test Item Value Reference Range Interpretation Comments POC-GLUCOSE METER 136 mg/dL 70-110 H : TESTED A T [facility] 6720 (BEAKER) (test code = [place], 1538) [id number]: Petroleum Geologist/Techni madina ID = [id number] for LA JANE BENJAMIN BASIC METABOLIC [id number] 07:19:22 Test Item Value Reference Range Interpretation Comments SODIUM (BEAKER) 140 meq/L 136-145 (test code = 381) POTASSIUM 4.4 meq/L 3.5-5.1 (BEAKER) (test code = 379) CHLORIDE (BEAKER) 103 meq/L 98-107 (test code = 382) CO2 (BEAKER) 29 meq/L 22-29 (test code = 355) BLOOD UREA 22 mg/dL 7-21 H NITROGEN (BEAKER) (test code = 354) CREATININE 3.67 mg/dL 0.57-1.25 H (BEAKER) (test code = 358) GLUCOSE RANDOM 88 mg/dL 70-105 (BEAKER) (test code = 652) CALCIUM (BEAKER) 9.4 mg/dL 8.4-10.2 (test code = 697) EGFR (BEAKER) 16 Interpretatio n of eGFR (test code = mL/min/1.73 values Stage De scription 1092) sq m Result G1 Lamar l or high >=90 G2 Mildly decreased 60-89 G3a Mildl y to moderately 45-5 9 G3b Moderately to s everely 30-44 G4 Severl y decreased 15-29 G5 Kidney failure <15Reported eGF R is based on the CKD-EPI 1 equation that d oes not use a race coefficientEsti mated GFR is not as accur ate as Creatinine Hannah faye in predicting glom erular filtration rate . Estimated GFR is not appl icable for dialysis patien ts Petroleum Geologist ID - [id number] 06:18:23 Test Item Value Reference Range Interpretation Comments PARTIAL THROMBOPLASTIN TIME 36.0 seconds 22.5-36.0 (BEAKER) (test code = 760) PROTHROMBIN TIME/[id number] 06:17:41 Test Item Value Reference Range Interpretation Comments PROTIME (BEAKER) (test code = 15.5 seconds 11.9-14.2 H 759) INR (BEAKER) (test code = 370) 1.26 <=5.90 RECOMMENDED COUMADIN/WARFARIN INR THERAPY RANGESSTANDARD DOSE: 2.0 - 3.0 Includes: PROPHYLAXIS for venous thrombosis, systemic embolization; TREATMENT for venous thrombosis and/or pulmonary embolus.HIGH RISK: Target INR is 2.5-3.5 for patients with mechanical heart valves.CBC W/PLT COUNT & AUTO [id number] 06:11:12 Test Item Value Reference Range Interpretation Comments WHITE BLOOD CELL COUNT (BEAKER) 11.8 K/ L 3.5-10.5 H (test code = 775) RED BLOOD CELL COUNT (BEAKER) 2.89 M/ L 4.63-6.08 L (test code = 761) HEMOGLOBIN (BEAKER) (test code = 8.5 GM/DL 13.7-17.5 L 410) HEMATOCRIT (BEAKER) (test code = 29.5 % 40.1-51.0 L 411) MEAN CORPUSCULAR VOLUME (BEAKER) 102 fL 79-92 H (test code = 753) MEAN CORPUSCULAR HEMOGLOBIN 29.4 pg 25.7-32.2 (BEAKER) (test code = 751) MEAN CORPUSCULAR HEMOGLOBIN CONC 28.8 GM/DL 32.3-36.5 L (BEAKER) (test code = 752) RED CELL DISTRIBUTION WIDTH 16.7 % 11.6-14.4 H (BEAKER) (test code = 412) PLATELET COUNT (BEAKER) (test 242 K/CU MM 150-450 code = 756) MEAN PLATELET VOLUME (BEAKER) 9.2 fL 9.4-12.4 L (test code = 754) NUCLEATED RED BLOOD CELLS 0 /100 WBC 0-0 (BEAKER) (test code = 413) NEUTROPHILS RELATIVE PERCENT 80 % (BEAKER) (test code = 429) LYMPHOCYTES RELATIVE PERCENT 14 % (BEAKER) (test code = 430) MONOCYTES RELATIVE PERCENT 5 % (BEAKER) (test code = 431) EOSINOPHILS RELATIVE PERCENT 0 % (BEAKER) (test code = 432) BASOPHILS RELATIVE PERCENT 0 % (BEAKER) (test code = 437) NEUTROPHILS ABSOLUTE COUNT 9.48 K/ L 1.78-5.38 H (BEAKER) (test code = 670) LYMPHOCYTES ABSOLUTE COUNT 1.60 K/ L 1.32-3.57 (BEAKER) (test code = 414) MONOCYTES ABSOLUTE COUNT (BEAKER) 0.55 K/ L 0.30-0.82 (test code = 415) EOSINOPHILS ABSOLUTE COUNT 0.03 K/ L 0.04-0.54 L (BEAKER) (test code = 416) BASOPHILS ABSOLUTE COUNT (BEAKER) 0.03 K/ L 0.01-0.08 (test code = 417) IMMATURE GRANULOCYTES-RELATIVE 0.70 % 0.00-1.00 PERCENT (BEAKER) (test code = 2801) CTA CHEST,ABDOMEN & PELVIS - FOR [id number] 12:42:59 [facility] : 1945 Sex: MEXAM: CT Angiogram Chest, Abdomen, and Pelvis WITH contrast INDICATION: Evaluate for dissectionCOMPARISON: None. TECHNIQUE:The chest was scanned utilizing a multidetector helical scanner from thelung apex through the pubic symphysis after administration of IVcontrast in arterial phase. Coronal and sagittal reformations wereobtained. CT Angiogram protocol was performed. 3D reconstruction wasperformed and viewed on dedicated workstation. Dose modulation,iterative reconstruction, and/or weight based adjustment of the mA/kVwas utilized to reduce the radiation dose to as low as reasonablyachievable. IV CONTRAST: 100 mL of Isovue 370 RADIATION DOSE: Total DLP: 1898 mGy*cm COMPLICATIONS: NoneVASCULAR FINDINGS: Moderate atherosclerotic disease is seen throughout the thoracic aortaand proximal great vessels.Advanced atherosclerotic disease seen throughout the abdominal aorta andpelvic vessels.Bulky triple-vessel coronary artery atherosclerotic complications areseen. At the level of the renal arteries and irregular abdominal aorticaneurysm is seen measuring up to 5.2 x 6.3 cm in AP by transversedimension with a craniocaudal dimension of 10.8 cm. Within the superioraspect of this aneurysmal section intraluminal flap is seen which mayrepresent a web or component of dissection. Within the more inferioraspect of this aortic aneurysm near the level of L4 there is a rightwardsaccular outpouching in the aneurysm which is nearly completelythrombosed/excluded.Scattered ulcerative plaques are seen throughout the abdominal aortadeepest of which measures up to 4 mm, best appreciated on axial .The celiac artery origin displays atherosclerotic plaque with less than50% stenosis and normal filling distal tothis point.The SMA is widely patent.The GARY originates from the distal aspect of the aneurysmal section ofthe abdominal aorta with greater than 50% atherosclerotic narrowing atthe ostium and normal filling distal to this point.Single right renal artery displays about 50% atherosclerotic stenosis attheorigin with normal filling distal to this point. The right common, internal and external iliac arteries displayatherosclerotic disease without significant stenosis, dissection oraneurysm.The left common iliac artery displays a focal aneurysmal section to 1.7cm. Distal to this the left internal and external iliac arteries displayatherosclerotic disease without significant stenosis, dissection oraneurysm.Right femoral bypass graft is partially visualized with nonfillingnative SFA.The main pulmonary artery is enlarged measuring 3.5 cm. No evidence ofcentral pulmonary embolism. NONVASCULAR FINDINGS:LINES/ TUBES: Right IJ tunneled dialysis catheter terminating near thecavoatrial junction.LUNGS AND AIRWAYS: The central airways are patent. Multifocal bilateralperipheral reticular nodular opacities worsewithin the right upper lobeposterior segment with nodular opacities measuring up to 7 mm. Mildbilateral centrilobular and paraseptal emphysematous changes. Mosaicpattern groundglass opacities. Bilateral dependent lower lobeatelectasis versus scarring. PLEURA: No pleural effusion. No pneumothorax.HEARTAND MEDIASTINUM: The thyroid gland is normal. Prominentmediastinal and right hilar nodes measuring up to 1.5 cm in short axis. The heart is normal in size. There is no pericardial effusion. HEPATOBILIARY: No focal hepatic lesions. No biliary ductal dilatation.Layering densities within the gallbladder,likely representingcholelithiasis with sludge.SPLEEN: Mild splenomegaly to 13.2 cmPANCREAS: No focalmasses or ductal dilatation.ADRENALS: No adrenal nodules.KIDNEYS/URETERS: Left kidney is absent. Theright kidney displaysmoderate to severe hydronephrosis/hydroureter. PELVIC ORGANS/BLADDER: The urinary bladder displays a irregularright-sided mass measuring 5.5 x 3.2 cm, involving the right UVJ.PERITONEUM / RETROPERITONEUM: No free air or fluid.LYMPH NODES: No lymphadenopathy.GI TRACT: No enteric contrast was administered. No distention or wallthickening. Appendix is seen, normal. BONES AND SOFT TISSUES: Degenerative changes seen throughout thevisualized osseous structures. Tiny fat-containing left inguinal hernia.IMPRESSION:VASCULAR:1. At the level of the renal arteries and irregular abdominal aorticaneurysm is seen measuring up to 5.2 x 6.3 cm in AP by transversedimension with a craniocaudal di mension of 10.8 cm. Within the superioraspect of this aneurysmal section intraluminal flap is seen which mayrepresent a web or component of dissection. Within the more inferioraspect of this aortic aneurysm near the level of L4 there is a rightwardsaccular outpouching in the aneurysm which is nearly co mpletelythrombosed/excluded. Recommend evaluation of vascular surgery.2. Scattered ulcerative plaques are seen throughout the abdominal aortadeepest of which measures up to 4 mm3. The celiac artery origin displays atherosclerotic plaque with lessthan 50% stenosis and normal filling distal to this point.4. Single right renal artery displays about 50% atheroscleroticstenosis at the origin with normal filling distal to this point. 5. 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 The main pulmonary artery is enlarged measuring 3.5 cm, suggestiveof pulmonary hypertension.NONVASCULAR:1. Multifocal bilateral peripheral predominant reticulonodularopacities are seen worse in the right upper lobe posterior segment withnodules measuring up to 7 mm. Recommend follow-up CT at 6-[address] at 18-24 months.2. Mild bilateral centrilobular and paraseptal emphysematous changes.3. Mosaic pattern groundglass opacities may represent component of airtrapping.4. Bilateraldependent lower lobe atelectasis versus scarring.5. The right kidney displays moderate to severehydronephrosis/hydroureter due to a right aspect of the bladder bladder5.5 x 3.2 cm irregular mass involving the UVJ. Recommend urologicalevaluation. Findings may be further evaluated by direct visualization. 6. Prominent mediastinal and right hilar nodes measuring up to 1.5 cmin short axis. Nonspecific finding may represent a reactive orneoplastic process.7. The left kidney is absent.Electronically Signed By: Dm Guillaume03/10/2023 12:45 CDTWorkstation Name: [id number] 07:29:53 Test Item Value Reference Range Interpretation Comments POC-GLUCOSE METER 130 mg/dL 70-110 H : TESTED A T [facility] 6720 (ROBERTOPRITESH) (test code = [place], 1538) [id number]: Petroleum Geologist/Techni madina ID = [id number] for Jaye Miller XR CHEST 1 VIEW PORTABLE / [id number] 07:03:45 [facility] : 1945 Sex: MCLINICAL HISTORY: AAATECHNIQUE: 1 view of the chest.COMPARISON: 03/09/2023IMPRESSION:Right jugular lineagain seen. Faint bilateral airspace opacities arenoted without lobar consolidation or significant pleural fluid. Thecardiomediastinal silhouette is magnified by technique.Electronically Signed By: Perez Mortensen03/10/2023 07:05 CDTWorkstation Name: [id number] SURFACE [id number] 02:32:39 Test Item Value Reference Range Interpretation Comments HEPATITIS B SURFACE ANTIGEN (2) Nonreactive Nonreactive (BEAKER) (test code = 2585) Specimen is considered negative for HBsAg.CBC W/PLT COUNT & AUTO [id number] 02:19:50 Test Item Value Reference Range Interpretation Comments WHITE BLOOD CELL COUNT (BEAKER) 9.6 K/ L 3.5-10.5 (test code = 775) RED BLOOD CELL COUNT (BEAKER) 2.91 M/ L 4.63-6.08 L (test code = 761) HEMOGLOBIN (BEAKER) (test code = 8.3 GM/DL 13.7-17.5 L 410) HEMATOCRIT (BEAKER) (test code = 29.9 % 40.1-51.0 L 411) MEAN CORPUSCULAR VOLUME (BEAKER) 103 fL 79-92 H (test code = 753) MEAN CORPUSCULAR HEMOGLOBIN 28.5 pg 25.7-32.2 (BEAKER) (test code = 751) MEAN CORPUSCULAR HEMOGLOBIN CONC 27.8 GM/DL 32.3-36.5 L (BEAKER) (test code = 752) RED CELL DISTRIBUTION WIDTH 15.9 % 11.6-14.4 H (BEAKER) (test code = 412) PLATELET COUNT (BEAKER) (test 242 K/CU MM 150-450 code = 756) MEAN PLATELET VOLUME (BEAKER) 9.8 fL 9.4-12.4 (test code = 754) NUCLEATED RED BLOOD CELLS 0 /100 WBC 0-0 (BEAKER) (test code = 413) NEUTROPHILS RELATIVE PERCENT 89 % (BEAKER) (test code = 429) LYMPHOCYTES RELATIVE PERCENT 8 % (BEAKER) (test code = 430) MONOCYTES RELATIVE PERCENT 2 % (BEAKER) (test code = 431) EOSINOPHILS RELATIVE PERCENT 0 % (BEAKER) (test code = 432) BASOPHILS RELATIVE PERCENT 0 % (BEAKER) (test code = 437) NEUTROPHILS ABSOLUTE COUNT 8.53 K/ L 1.78-5.38 H (BEAKER) (test code = 670) LYMPHOCYTES ABSOLUTE COUNT 0.74 K/ L 1.32-3.57 L (BEAKER) (test code = 414) MONOCYTES ABSOLUTE COUNT (BEAKER) 0.22 K/ L 0.30-0.82 L (test code = 415) EOSINOPHILS ABSOLUTE COUNT 0.00 K/ L 0.04-0.54 L (BEAKER) (test code = 416) BASOPHILS ABSOLUTE COUNT (BEAKER) 0.01 K/ L 0.01-0.08 (test code = 417) IMMATURE GRANULOCYTES-RELATIVE 0.50 % 0.00-1.00 PERCENT (BEAKER) (test code = 2801) BASIC METABOLIC [id number] 02:13:48 Test Item Value Reference Range Interpretation Comments SODIUM (BEAKER) 138 meq/L 136-145 (test code = 381) POTASSIUM 5.8 meq/L 3.5-5.1 H (BEAKER) (test code = 379) CHLORIDE (BEAKER) 107 meq/L 98-107 (test code = 382) CO2 (BEAKER) 20 meq/L 22-29 L (test code = 355) BLOOD UREA 40 mg/dL 7-21 H NITROGEN (BEAKER) (test code = 354) CREATININE 5.12 mg/dL 0.57-1.25 H (BEAKER) (test code = 358) GLUCOSE RANDOM 145 mg/dL 70-105 H (BEAKER) (test code = 652) CALCIUM (BEAKER) 9.7 mg/dL 8.4-10.2 (test code = 697) EGFR (BEAKER) 11 Interpretatio n of eGFR (test code = mL/min/1.73 values Stage De scription 1092) sq m Result G1 Lamar l or high >=90 G2 Mildly decreased 60-89 G3a Mildl y to moderately 45-5 9 G3b Moderately to s everely 30-44 G4 Severl y decreased 15-29 G5 Kidney failure <15Reported eGF R is based on the CKD-EPI 2020 equation that d oes not use a race coefficientEsti mated GFR is not as accur ate as Creatinine Hannah faye in predicting glom erular filtration rate . Estimated GFR is not appl icable for dialysis patien ts Petroleum Geologist ID - [id number] 02:11:46 Test Item Value Reference Range Interpretation Comments MAGNESIUM (BEAKER) (test code = 2.1 mg/dL 1.6-2.6 627) Petroleum Geologist ID - [id number] 02:11:46 Test Item Value Reference Range Interpretation Comments PHOSPHORUS (BEAKER) (test code = 4.7 mg/dL 2.3-4.7 604) Petroleum Geologist ID - [id number] 02:02:10 Test Item Value Reference Range Interpretation Comments PARTIAL THROMBOPLASTIN TIME 38.5 seconds 22.5-36.0 H (BEAKER) (test code = 760) PROTHROMBIN TIME/[id number] 02:01:09 Test Item Value Reference Range Interpretation Comments PROTIME (BEAKER) (test code = 14.3 seconds 11.9-14.2 H 759) INR (BEAKER) (test code = 370) 1.17 <=5.90 RECOMMENDED COUMADIN/WARFARIN INR THERAPY RANGESSTANDARD DOSE: 2.0 - 3.0 Includes: PROPHYLAXIS for venous thrombosis, systemic embolization; TREATMENT for venous thrombosis and/or pulmonary embolus.HIGH RISK: Target INR is 2.5-3.5 for patients with mechanical heart valves.CALCIUM, [id number] 01:55:15 Test Item Value Reference Range Interpretation Comments CALCIUM IONIZED (BEAKER) (test 1.21 mmol/L 1.12-1.27 code = 698) PH, BLOOD (BEAKER) (test code = 7.28 1810) POCT-GLUCOSE [id number] 18:08:11 Test Item Value Reference Range Interpretation Comments POC-GLUCOSE METER 149 mg/dL 70-110 H : TESTED A T [facility] [address] (GRISELDA) (test code = [place], 1538) [address]: Petroleum Geologist/Techni madina ID = [id number] for Jaye Miller B-TYPE NATRIURETIC FACTOR (BNP)2023-03-09 17:26:47 Test Item Value Reference Range Interpretation Comments B-TYPE NATRIURETIC PEPTIDE 2227 pg/mL 0-100 H (GRISELDA) (test code = 700) Petroleum Geologist ID - ADMINHIGH SENSITIVITY TROPONIN [id number] 16:51:59 Test Item Value Reference Range Interpretation Comments HIGH SENSITIVITY TROPONIN I (test 54 pg/ml <=35 H code = 2527191) Petroleum Geologist ID - ADMINThe MEDICAL TECHNOLOGIST STAT High Sensitivity Troponin-I results should be used in conjunction with other diagnostic information such as ECG, clinical observations and information, and patientsymptoms to aid in the diagnosis of NH. XR CHEST 1 VIEW PORTABLE / [id number] 11:46:19 [facility] : 1945 Sex: MAPview of the chest dated 03/09/2023LINICAL INFORMATION: AAAComment: Heart is normal in size. Thoracicaorta is ectatic andcalcified. Pulmonary vasculature is unremarkable. Lungs are clear. Nopulmonary infiltrate or pleural effusion is present. A right IJ centralvenous catheter is seen. No pneumothorax is noted.IMPRESSION:Impression: Ectatic and calcified thoracic aorta.Electronically Signed By: Amauri Kirkland03/09/2023 11:48 CDTWorkstation Name: [id number] METABOLIC [id number] 11:32:36 Test Item Value Reference Range Interpretation Comments SODIUM (BEAKER) 140 meq/L 136-145 (test code = 381) POTASSIUM 5.4 meq/L 3.5-5.1 H (BEAKER) (test code = 379) CHLORIDE (BEAKER) 109 meq/L 98-107 H (test code = 382) CO2 (BEAKER) 23 meq/L 22-29 (test code = 355) BLOOD UREA 25 mg/dL 7-21 H NITROGEN (BEAKER) (test code = 354) CREATININE 4.18 mg/dL 0.57-1.25 H (BEAKER) (test code = 358) GLUCOSE RANDOM 153 mg/dL 70-105 H (BEAKER) (test code = 652) CALCIUM (BEAKER) 9.6 mg/dL 8.4-10.2 (test code = 697) EGFR (BEAKER) 14 Interpretatio n of eGFR (test code = mL/min/1.73 values Stage De scription 1092) sq m Result G1 Lamar l or high >=90 G2 Mildly decreased 60-89 G3a Mildl y to moderately 45-5 9 G3b Moderately to s everely 30-44 G4 Severl y decreased 15-29 G5 Kidney failure <15Reported eGF R is based on the CKD-EPI 2020 equation that d oes not use a race coefficientEsti mated GFR is not as accur ate as Creatinine Hannah mckinney in predicting glom erular filtration rate . Estimated GFR is not appl icable for dialysis patien ts Petroleum Geologist ID - [id number] 11:16:38 Test Item Value Reference Range Interpretation Comments MAGNESIUM (BEAKER) (test code = 1.6 mg/dL 1.6-2.6 627) Petroleum Geologist ID - [id number] 11:16:38 Test Item Value Reference Range Interpretation Comments PHOSPHORUS (BEAKER) (test code = 3.4 mg/dL 2.3-4.7 604) Petroleum Geologist ID - MARCOCBC W/PLT COUNT & AUTO [id number] 10:39:15 Test Item Value Reference Range Interpretation Comments WHITE BLOOD CELL COUNT (BEAKER) 9.5 K/ L 3.5-10.5 (test code = 775) RED BLOOD CELL COUNT (BEAKER) 2.72 M/ L 4.63-6.08 L (test code = 761) HEMOGLOBIN (BEAKER) (test code = 8.0 GM/DL 13.7-17.5 L 410) HEMATOCRIT (BEAKER) (test code = 27.9 % 40.1-51.0 L 411) MEAN CORPUSCULAR VOLUME (BEAKER) 103 fL 79-92 H (test code = 753) MEAN CORPUSCULAR HEMOGLOBIN 29.4 pg 25.7-32.2 (BEAKER) (test code = 751) MEAN CORPUSCULAR HEMOGLOBIN CONC 28.7 GM/DL 32.3-36.5 L (BEAKER) (test code = 752) RED CELL DISTRIBUTION WIDTH 15.7 % 11.6-14.4 H (BEAKER) (test code = 412) PLATELET COUNT (BEAKER) (test 222 K/CU MM 150-450 code = 756) MEAN PLATELET VOLUME (BEAKER) 9.5 fL 9.4-12.4 (test code = 754) NUCLEATED RED BLOOD CELLS 0 /100 WBC 0-0 (BEAKER) (test code = 413) NEUTROPHILS RELATIVE PERCENT 94 % (BEAKER) (test code = 429) LYMPHOCYTES RELATIVE PERCENT 4 % (BEAKER) (test code = 430) MONOCYTES RELATIVE PERCENT 1 % (BEAKER) (test code = 431) EOSINOPHILS RELATIVE PERCENT 0 % (BEAKER) (test code = 432) BASOPHILS RELATIVE PERCENT 1 % (BEAKER) (test code = 437) NEUTROPHILS ABSOLUTE COUNT 8.90 K/ L 1.78-5.38 H (BEAKER) (test code = 670) LYMPHOCYTES ABSOLUTE COUNT 0.38 K/ L 1.32-3.57 L (BEAKER) (test code = 414) MONOCYTES ABSOLUTE COUNT (BEAKER) 0.09 K/ L 0.30-0.82 L (test code = 415) EOSINOPHILS ABSOLUTE COUNT 0.02 K/ L 0.04-0.54 L (BEAKER) (test code = 416) BASOPHILS ABSOLUTE COUNT (BEAKER) 0.05 K/ L 0.01-0.08 (test code = 417) IMMATURE GRANULOCYTES-RELATIVE 0.40 % 0.00-1.00 PERCENT (BEAKER) (test code = 2801) [id number] 10:37:37 Test Item Value Reference Range Interpretation Comments PARTIAL THROMBOPLASTIN TIME 37.3 seconds 22.5-36.0 H (BEAKER) (test code = 760) PROTHROMBIN TIME/[id number] 10:36:40 Test Item Value Reference Range Interpretation Comments PROTIME (GRISELDA) (test code = 14.7 seconds 11.9-14.2 H 759) INR (GRISELDA) (test code = 370) 1.22 <=5.90 RECOMMENDED COUMADIN/WARFARIN INR THERAPY RANGESSTANDARD DOSE: 2.0 - 3.0 Includes: PROPHYLAXIS for venous thrombosis, systemic embolization; TREATMENT for venous thrombosis and/or pulmonary embolus.HIGH RISK: Target INR is 2.5-3.5 for patients with mechanical heart valves.NM LUNG (V/Q ) SCAN W ISOTOPE 2022-07-22 15:46:51 [facility] : 1945 Sex: MRadionuclide perfusion lung scanLocation Code: [id number]: Pulmonary embolus with shortness of breathCOMPARISON: Chest [...] by: Axel Gupta MD 07/22/2022 3:46 PM [facility] CHEST 1 VIEW PORTABLE 2022-07-22 15:45:57 [facility] : 1945 Sex: MEXAMINATION:XR CHEST 1 VIEW PORTABLECLINICAL INDICATION:Male, 77 years year old with PER GREGCOMPARISON: None.FINDINGS:Single view(s) of the chest submitted.Support Devices: Right chest tunneled dialysis catheter noted with tip overlying the superior vena cava.Heart/Mediastinum: Cardiac silhouette is normal in size. Mediastinal contours are normal.Lungs/Pleura: The lungs are clear and well inflated. There is no pneumothorax or pleural effusion.Bones: Visualized skeleton is normal.IMPRESSION:No acute radiographic abnormality.Electronically signed by: Bienvenido Cuenca MD 07/22/2022 3:45 PM KEY ACCOUNT DIRECTOR GLUCOSE (AUTOMATED)2021-09-11 17:56:19 Test Item Value Reference Range Interpretation Comments POCT GLU (test code = 3168807761) 143 mg/dL 70-110 H Lab Interpretation (test code = Abnormal 28826-7) [facility] GLUCOSE (AUTOMATED)2021-09-11 14:31:01 Test Item Value Reference Range Interpretation Comments POCT GLU (test code = 9223384469) 140 mg/dL 70-110 H Lab Interpretation (test code = Abnormal 57998-0) [facility] METABOLIC PANEL (NA, K, CL, CO2, GLUCOSE, BUN, CREATININE, CA)2021-09-11 11:27:07 Test Item Value Reference Range Interpretation Comments NA (test code = 142 mmol/L 135-145 6560022004) K (test code = 4.7 mmol/L 3.5-5.0 9670573193) CL (test code = 116 mmol/L 98-108 H 8403119166) CO2 TOTAL (test code = 21 mmol/L 23-31 L 9658501428) AGAP (test code = 2-16 9136032716) BUN (test code = 53 mg/dL 7-23 H 7794330959) GLUCOSE (test code = 126 mg/dL 70-110 H 0611795615) CREATININE (test code = 2.92 mg/dL 0.60-1.25 H 6327213929) CALCIUM (test code = 8.8 mg/dL 8.6-10.6 4018793533) eGFR (test code = mL/min/1.73m2 2703124793) RADHA (test code = RADHA) Association of [...] tests). Lab Interpretation Abnormal (test code = 04216-1) [facility] WITH [id number] 11:10:42 Test Item Value Reference Range Interpretation [...] (test code = 52.9 fL 38.5-51.6 H 94583-1) RDW-CV (test code = 15.3 % 12.1-15.4 788-0) PLT (test code = See_Comment [Automated 777-3) message] The sy stem which generated this result transmitted reference range : 150 - 328 10*3/ ?L. The reference r hilary was not used to interpret this result as normal/abnormal . MPV (test code = 10.4 fL 9.8-13.0 70208-5) NRBC/100 WBC (test See_Comment [Automat ed code = 9080024539) message] The system which generated this result transmitted reference range : 0.0 - 10.0 /100 WBCs. The refer ence range was not u sed to interpret th is result as normal/abnormal . NRBC x10^3 (test code <0.01 See_Comment [Auto mated = 8629636405) message] The s ystem which generated this result transmitted reference range : 10*3/?L. The reference range was not used to interpret this result as normal/abnormal . GRAN MAT (NEUT) % 77.5 % (test code = 770-8) IMM GRAN % (test code 0.50 % = 2417457402) LYMPH % (test code = 15.6 % 736-9) MONO % (test code = 5.5 % 5905-5) EOS % (test code = 0.9 % 713-8) BASO % (test code = 0.0 % 706-2) GRAN MAT x10^3(ANC) 4.93 10*3/uL 1.99-6.95 (test code = 1938377629) IMM GRAN x10^3 (test 0.03 10*3/uL 0.00-0.06 code = 3336854984) LYMPH x10^3 (test code 0.99 10*3/uL 1.09-3.23 L = 731-0) MONO x10^3 (test code 0.35 10*3/uL 0.36-1.02 L = 742-7) EOS x10^3 (test code = 0.06 10*3/uL 0.06-0.53 711-2) BASO x10^3 (test code <0.03 0.01-0.09 = 704-7) Lab Interpretation Abnormal (test code = 95159-7) [facility] GLUCOSE (AUTOMATED)2021-09-11 02:38:30 Test Item Value Reference Range Interpretation Comments POCT GLU (test code = 1522383586) 195 mg/dL 70-110 H Lab Interpretation (test code = Abnormal 02099-8) [facility] GLUCOSE (AUTOMATED)2021-09-10 23:44:28 Test Item Value Reference Range Interpretation Comments POCT GLU (test code = 0997567149) 147 mg/dL 70-110 H Lab Interpretation (test code = Abnormal 27427-8) [facility] [facility]10 18:03:55 Test Item Value Reference Range Interpretation Comments POCT GLU (test code = 6447711767) 162 mg/dL 70-110 H Lab Interpretation (test code = Abnormal 42175-8) [facility]TOTAL CHOLESTEROL, TRIGLYCERIDES, HDL)2021-09-10 16:55:36 Test Item Value Reference Range Interpretation Comments CHOL (test code = 93 mg/dL 120-200 L 7203759913) HDL (test code = 56 mg/dL >40 0638933282) HDLC RATIO (test code = See_Comment [Au tomated message] 7926093864) The system whic h generated this result transmitted ref erence range: <=5.0. T he reference range was not used to int erpret this result as normal/abnormal . TRIG (test code = 85 mg/dL 30-170 1740339719) LDL CHOL (test code = 20 mg/dL See_Comment [Auto mated message] 60266-1) The system ic h generated this result transmitted ref erence range: <=160. T he reference range was not used to int erpret this result as normal/abnormal . VLDL (test code = 17 mg/dL 5-60 4465764013) Lab Interpretation (test Abnormal code = 24932-4) [facility] GLUCOSE (AUTOMATED)2021-09-10 14:34:31 Test Item Value Reference Range Interpretation Comments POCT GLU (test code = 5585146862) 150 mg/dL 70-110 H Lab Interpretation (test code = Abnormal 90814-5) [facility] GLUCOSE (AUTOMATED)2021-09-10 03:18:02 Test Item Value Reference Range Interpretation Comments POCT GLU (test code = 3871355245) 163 mg/dL 70-110 H Lab Interpretation (test code = Abnormal 83462-2) [facility] GLUCOSE (AUTOMATED)2021-09-09 23:22:00 Test Item Value Reference Range Interpretation Comments POCT GLU (test code = 7081986994) 153 mg/dL 70-110 H Lab Interpretation (test code = Abnormal 89924-3) [id number] 20:42:21 Test Item Value Reference Range Interpretation Comments NT-proBNP (test code 3860 pg/mL See_Comment H [Autom ated = 2729420613) message] The system which generated this result transmitted reference range : <=450. The reference range was not used to interpret this result as normal/abnormal . RADHA (test code = RADHA) Biotin has been reported to cause a negative bias, interpret results relative to patient's use of biotin. Lab Interpretation Abnormal (test code = 71149-3) [facility] GLUCOSE (AUTOMATED)2021-09-09 17:29:37 Test Item Value Reference Range Interpretation Comments POCT GLU (test code = 2513528832) 121 mg/dL 70-110 H Lab Interpretation (test code = Abnormal 57376-5) [facility] 13:54:41 Test Item Value Reference Range Interpretation Comments POCT GLU (test code = 2887991683) 118 mg/dL 70-110 H Lab Interpretation (test code = Abnormal 34609-7) [facility] METABOLIC PANEL (NA, K, CL, CO2, GLUCOSE, BUN, CREATININE, CA)2021-09-09 13:01:38 Test Item Value Reference Range Interpretation Comments NA (test code = 141 mmol/L 135-145 0577870743) K (test code = 4.7 mmol/L 3.5-5.0 9199604208) CL (test code = 115 mmol/L 98-108 H 1013869341) CO2 TOTAL (test code = 22 mmol/L 23-31 L 9885632716) AGAP (test code = 2-16 5836858837) BUN (test code = 59 mg/dL 7-23 H 0938626930) GLUCOSE (test code = 114 mg/dL 70-110 H 6207800079) CREATININE (test code = 3.09 mg/dL 0.60-1.25 H 3218022001) CALCIUM (test code = 8.9 mg/dL 8.6-10.6 6917805287) eGFR (test code = mL/min/1.73m2 2193124694) RADHA (test code = RADHA) Association of [...] tests). Lab Interpretation Abnormal (test code = 30196-5) [facility] WITH [id number] 12:42:15 Test Item Value Reference Range Interpretation [...] (test code = 52.5 fL 38.5-51.6 H 94695-1) RDW-CV (test code = 15.1 % 12.1-15.4 788-0) PLT (test code = See_Comment [Automated 777-3) message] The sy stem which generated this result transmitted reference range : 150 - 328 10*3/ ?L. The reference r hilary was not used to interpret this result as normal/abnormal . MPV (test code = 10.5 fL 9.8-13.0 60557-2) NRBC/100 WBC (test See_Comment [Automat ed code = 8810229277) message] The system which generated this result transmitted reference range : 0.0 - 10.0 /100 WBCs. The refer ence range was not u sed to interpret th is result as normal/abnormal . NRBC x10^3 (test code <0.01 See_Comment [Auto mated = 9729168109) message] The s ystem which generated this result transmitted reference range : 10*3/?L. The reference range was not used to interpret this result as normal/abnormal . GRAN MAT (NEUT) % 81.8 % (test code = 770-8) IMM GRAN % (test code 0.50 % = 3496954657) LYMPH % (test code = 13.0 % 736-9) MONO % (test code = 4.3 % 5905-5) EOS % (test code = 0.4 % 713-8) BASO % (test code = 0.0 % 706-2) GRAN MAT x10^3(ANC) 6.71 10*3/uL 1.99-6.95 (test code = 9461643678) IMM GRAN x10^3 (test 0.04 10*3/uL 0.00-0.06 code = 4748599005) LYMPH x10^3 (test code 1.07 10*3/uL 1.09-3.23 L = 731-0) MONO x10^3 (test code 0.35 10*3/uL 0.36-1.02 L = 742-7) EOS x10^3 (test code = 0.03 10*3/uL 0.06-0.53 L 711-2) BASO x10^3 (test code <0.03 0.01-0.09 = 704-7) Lab Interpretation Abnormal (test code = 42070-0) [facility] [id number] 06:01:53 Test Item Value Reference Range Interpretation Comments Blood Culture-Aerobic No organisms No growth Previo us (test code = 21298-4) isolated prelim inary verified result was Culture In Progress on 09/04/2021 at 03 01 CSTPrevious preliminary verified result was No growth a t 24 hours on 09/05/2021 at 00 01 CSTPrevious preliminary verified result was No growth a t 48 hours on 09/06/2021 at 00 01 CSTPrevious preliminary verified result was No growth a t 72 hours on 09/07/2021 at 00 01 KEY ACCOUNT DIRECTOR Blood No organisms No growth Previous Culture-Anaerobic isolated preliminar y (test code = 12333-0) verifi ed result was Culture In Progress on 09/04/2021 at 03 01 CSTPrevious preliminary verified result was No growth a t 24 hours on 09/05/2021 at 00 01 CSTPrevious preliminary verified result was No growth a t 48 hours on 09/06/2021 at 00 01 CSTPrevious preliminary verified result was No growth a t 72 hours on 09/07/2021 at 00 01 KEY ACCOUNT DIRECTOR Lab Interpretation Normal (test code = 05242-2) [facility] [id number] 06:01:53 Test Item Value Reference Range Interpretation Comments Blood Culture-Aerobic No organisms No growth Previo us (test code = 09290-7) isolated prelim inary verified result was Culture In Progress on 09/04/2021 at 03 01 CSTPrevious preliminary verified result was No growth a t 24 hours on 09/05/2021 at 00 01 CSTPrevious preliminary verified result was No growth a t 48 hours on 09/06/2021 at 00 01 CSTPrevious preliminary verified result was No growth a t 72 hours on 09/07/2021 at 00 01 KEY ACCOUNT DIRECTOR Blood No organisms No growth Previous Culture-Anaerobic isolated preliminar y (test code = 08506-0) verifi ed result was Culture In Progress on 09/04/2021 at 03 01 CSTPrevious preliminary verified result was No growth a t 24 hours on 09/05/2021 at 00 01 CSTPrevious preliminary verified result was No growth a t 48 hours on 09/06/2021 at 00 01 CSTPrevious preliminary verified result was No growth a t 72 hours on 09/07/2021 at 00 01 KEY ACCOUNT DIRECTOR Lab Interpretation Normal (test code = 71303-4) [facility] GLUCOSE (AUTOMATED)2021-09-09 03:41:10 Test Item Value Reference Range Interpretation Comments POCT GLU (test code = 9923868054) 196 mg/dL 70-110 H Lab Interpretation (test code = Abnormal 30240-7) [facility] GLUCOSE (AUTOMATED)2021-09-08 23:12:05 Test Item Value Reference Range Interpretation Comments POCT GLU (test code = 3672670338) 138 mg/dL 70-110 H Lab Interpretation (test code = Abnormal 22290-0) [facility] GLUCOSE (AUTOMATED)2021-09-08 17:46:12 Test Item Value Reference Range Interpretation Comments POCT GLU (test code = 5417111309) 181 mg/dL 70-110 H Lab Interpretation (test code = Abnormal 69222-8) [facility] GLUCOSE (AUTOMATED)2021-09-08 13:53:55 Test Item Value Reference Range Interpretation Comments POCT GLU (test code = 7942612511) 179 mg/dL 70-110 H Lab Interpretation (test code = Abnormal 64334-8) [facility] GLUCOSE (AUTOMATED)2021-09-08 03:04:37 Test Item Value Reference Range Interpretation Comments POCT GLU (test code = 4001759141) 241 mg/dL 70-110 H Lab Interpretation (test code = Abnormal 44252-7) [facility] GLUCOSE (AUTOMATED)2021-09-07 23:44:53 Test Item Value Reference Range Interpretation Comments POCT GLU (test code = 2251785106) 268 mg/dL 70-110 H Lab Interpretation (test code = Abnormal 74291-3) [facility] GLUCOSE (AUTOMATED)2021-09-07 19:18:14 Test Item Value Reference Range Interpretation Comments POCT GLU (test code = 9932032262) 208 mg/dL 70-110 H Lab Interpretation (test code = Abnormal 18991-5) [facility] Culture - Peripheral # [id number] 16:02:10 Test Item Value Reference Range Interpretation Comments Blood Culture-Aerobic No organisms No growth Previo us (test code = 50990-0) isolated prelim inary verified result was Culture In Progress on 09/02/2021 at 13 02 CSTPrevious preliminary verified result was No growth a t 24 hours on 09/03/2021 at 10 01 CSTPrevious preliminary verified result was No growth a t 48 hours on 09/04/2021 at 10 01 CSTPrevious preliminary verified result was No growth a t 72 hours on 09/05/2021 at 10 01 KEY ACCOUNT DIRECTOR Blood No organisms No growth Previous Culture-Anaerobic isolated preliminar y (test code = 69845-0) verifi ed result was Culture In Progress on 09/02/2021 at 13 02 CSTPrevious preliminary verified result was No growth a t 24 hours on 09/03/2021 at 10 01 CSTPrevious preliminary verified result was No growth a t 48 hours on 09/04/2021 at 10 01 CSTPrevious preliminary verified result was No growth a t 72 hours on 09/05/2021 at 10 01 KEY ACCOUNT DIRECTOR Lab Interpretation Normal (test code = 16637-1) [facility] 15:05:58 Test Item Value Reference Range Interpretation Comments POCT GLU (test code = 1824670937) 158 mg/dL 70-110 H Lab Interpretation (test code = Abnormal 69532-8) [facility] (NA, K, CL, CO2, GLUCOSE, BUN, CREATININE, CA)2021-09-07 12:31:00 Test Item Value Reference Range Interpretation Comments NA (test code = 140 mmol/L 135-145 8281836898) K (test code = 4.9 mmol/L 3.5-5.0 1084275288) CL (test code = 113 mmol/L 98-108 H 1071858861) CO2 TOTAL (test code = 22 mmol/L 23-31 L 3304447678) AGAP (test code = 2-16 5366953028) BUN (test code = 51 mg/dL 7-23 H 6483123056) GLUCOSE (test code = 179 mg/dL 70-110 H 9068123928) CREATININE (test code = 2.98 mg/dL 0.60-1.25 H 8935460396) CALCIUM (test code = 9.0 mg/dL 8.6-10.6 9801818882) eGFR (test code = mL/min/1.73m2 0827099446) RADHA (test code = RADHA) Association of [...] tests). Lab Interpretation Abnormal (test code = 43844-5) [facility] WITH [id number] 12:23:57 Test Item Value Reference Range Interpretation Comments WBC (test code = See_Comment [Automated 8990-2) message] The sy stem which generated this result transmitted reference range : 4.20 - 10.70 10*3/?L. The reference range was not used to interpret this result as normal/abnormal . RBC (test code = See_Comment L [Automated 779-8) message] The sy stem which generated this [...] (test code = 51.8 fL 38.5-51.6 H 67161-5) RDW-CV (test code = 14.9 % 12.1-15.4 788-0) PLT (test code = See_Comment [Automated 777-3) message] The sy stem which generated this result transmitted reference range : 150 - 328 10*3/ ?L. The reference r hilary was not used to interpret this result as normal/abnormal . MPV (test code = 10.1 fL 9.8-13.0 00124-6) NRBC/100 WBC (test See_Comment [Automat ed code = 0739272437) message] The system which generated this result transmitted reference range : 0.0 - 10.0 /100 WBCs. The refer ence range was not u sed to interpret th is result as normal/abnormal . NRBC x10^3 (test code <0.01 See_Comment [Auto mated = 9557265829) message] The s ystem which generated this result transmitted reference range : 10*3/?L. The reference range was not used to interpret this result as normal/abnormal . GRAN MAT (NEUT) % 88.6 % (test code = 770-8) IMM GRAN % (test code 0.40 % = 5143682270) LYMPH % (test code = 7.1 % 736-9) MONO % (test code = 3.8 % 5905-5) EOS % (test code = 0.0 % 713-8) BASO % (test code = 0.1 % 706-2) GRAN MAT x10^3(ANC) 6.02 10*3/uL 1.99-6.95 (test code = 1304491968) IMM GRAN x10^3 (test 0.03 10*3/uL 0.00-0.06 code = 9534834855) LYMPH x10^3 (test code 0.48 10*3/uL 1.09-3.23 L = 731-0) MONO x10^3 (test code 0.26 10*3/uL 0.36-1.02 L = 742-7) EOS x10^3 (test code = <0.03 0.06-0.53 L 711-2) BASO x10^3 (test code <0.03 0.01-0.09 = 704-7) Lab Interpretation Abnormal (test code = 84807-3) [facility] GLUCOSE (AUTOMATED)2021-09-07 03:05:46 Test Item Value Reference Range Interpretation Comments POCT GLU (test code = 9320751006) 235 mg/dL 70-110 H Lab Interpretation (test code = Abnormal 79119-6) [facility] GLUCOSE (AUTOMATED)2021-09-07 01:42:32 Test Item Value Reference Range Interpretation Comments POCT GLU (test code = 8699421041) 291 mg/dL 70-110 H Lab Interpretation (test code = Abnormal 17022-2) [facility] GLUCOSE (AUTOMATED)2021-09-06 22:58:03 Test Item Value Reference Range Interpretation Comments POCT GLU (test code = 7873692348) 291 mg/dL 70-110 H Lab Interpretation (test code = Abnormal 03081-7) [facility] GLUCOSE (AUTOMATED)2021-09-06 17:52:21 Test Item Value Reference Range Interpretation Comments POCT GLU (test code = 1205174883) 185 mg/dL 70-110 H Lab Interpretation (test code = Abnormal 85635-3) [facility] GLUCOSE (AUTOMATED)2021-09-06 14:03:24 Test Item Value Reference Range Interpretation Comments POCT GLU (test code = 7407129745) 131 mg/dL 70-110 H Lab Interpretation (test code = Abnormal 35053-7) [facility] WITH [id number] 09:20:33 Test Item Value Reference Range Interpretation Comments WBC (test code = See_Comment [Automated 1390-2) message] The sy stem which generated this result transmitted reference range : 4.20 - 10.70 10*3/?L. The reference range was not used to interpret this result as normal/abnormal . RBC (test code = See_Comment L [Automated 269-8) message] The sy stem which generated this [...] (test code = 53.1 fL 38.5-51.6 H 54092-1) RDW-CV (test code = 15.1 % 12.1-15.4 788-0) PLT (test code = See_Comment [Automated 777-3) message] The sy stem which generated this result transmitted reference range : 150 - 328 10*3/ ?L. The reference r hilary was not used to interpret this result as normal/abnormal . MPV (test code = 10.0 fL 9.8-13.0 53518-4) NRBC/100 WBC (test See_Comment [Automat ed code = 8613853863) message] The system which generated this result transmitted reference range : 0.0 - 10.0 /100 WBCs. The refer ence range was not u sed to interpret th is result as normal/abnormal . NRBC x10^3 (test code <0.01 See_Comment [Auto mated = 0183049412) message] The s ystem which generated this result transmitted reference range : 10*3/?L. The reference range was not used to interpret this result as normal/abnormal . GRAN MAT (NEUT) % 85.6 % (test code = 770-8) IMM GRAN % (test code 0.70 % = 0561096440) LYMPH % (test code = 8.9 % 736-9) MONO % (test code = 4.7 % 5905-5) EOS % (test code = 0.0 % 713-8) BASO % (test code = 0.1 % 706-2) GRAN MAT x10^3(ANC) 6.55 10*3/uL 1.99-6.95 (test code = 8707516777) IMM GRAN x10^3 (test 0.05 10*3/uL 0.00-0.06 code = 9803977860) LYMPH x10^3 (test code 0.68 10*3/uL 1.09-3.23 L = 731-0) MONO x10^3 (test code 0.36 10*3/uL 0.36-1.02 = 742-7) EOS x10^3 (test code = <0.03 0.06-0.53 L 711-2) BASO x10^3 (test code <0.03 0.01-0.09 = 704-7) Lab Interpretation Abnormal (test code = 65046-0) [facility] [id number] 09:14:11 Test Item Value Reference Interpretation Comments Range TROPONIN I (test 0.061 ng/mL See_Comment H [Automated code = 6235513091) message] The system which generated this result [...] biotin. Lab Interpretation Abnormal (test code = 30984-6) [facility] 09:02:46 Test Item Value Reference Range Interpretation Comments MAGNESIUM (test code = 0307396469) 2.0 mg/dL 1.7-2.4 Lab Interpretation (test code = Normal 24224-3) [facility] (NA, K, CL, CO2, GLUCOSE, BUN, CREATININE, CA)2021-09-06 09:02:26 Test Item Value Reference Range Interpretation Comments NA (test code = 138 mmol/L 135-145 1837086095) K (test code = 5.2 mmol/L 3.5-5.0 H 1404885002) CL (test code = 112 mmol/L 98-108 H 4481821954) CO2 TOTAL (test code = 21 mmol/L 23-31 L 1569223650) AGAP (test code = 2-16 3791936039) BUN (test code = 51 mg/dL 7-23 H 8233477758) GLUCOSE (test code = 137 mg/dL 70-110 H 4002953013) CREATININE (test code = 3.15 mg/dL 0.60-1.25 H 1078104389) CALCIUM (test code = 9.1 mg/dL 8.6-10.6 9843248920) eGFR (test code = mL/min/1.73m2 2556969552) RADHA (test code = RADHA) Association of [...] tests). Lab Interpretation Abnormal (test code = 24364-9) [facility] 09:02:26 Test Item Value Reference Range Interpretation Comments PHOSPHORUS (test code = 4339534170) 3.4 mg/dL 2.5-5.0 Lab Interpretation (test code = Normal 91054-4) [facility] GLUCOSE (AUTOMATED)2021-09-06 02:58:54 Test Item Value Reference Range Interpretation Comments POCT GLU (test code = 1042292055) 229 mg/dL 70-110 H Lab Interpretation (test code = Abnormal 27209-8) [facility] CenterVancomycin Random [id number] 23:36:47 Test Item Value Reference Range Interpretation Comments VANCO RANDOM (test code = 7.6 ug/mL 7785015909) [facility] GLUCOSE (AUTOMATED)2021-09-05 22:23:59 Test Item Value Reference Range Interpretation Comments POCT GLU (test code = 4896108229) 307 mg/dL 70-110 H Lab Interpretation (test code = Abnormal 80700-3) [facility] GLUCOSE (AUTOMATED)2021-09-05 17:43:53 Test Item Value Reference Range Interpretation Comments POCT GLU (test code = 7637197696) 133 mg/dL 70-110 H Lab Interpretation (test code = Abnormal 46003-1) [facility] [id number] 17:02:17 Test Item Value Reference Range Interpretation Comments NT-proBNP (test code 4570 pg/mL See_Comment H [Autom ated = 1276540289) message] The system which generated this result transmitted reference range : <=450. The reference range was not used to interpret this result as normal/abnormal . RADHA (test code = RADHA) Biotin has been reported to cause a negative bias, interpret results relative to patient's use of biotin. Lab Interpretation Abnormal (test code = 26788-6) [facility] METABOLIC PANEL (NA, K, CL, CO2, GLUCOSE, BUN, CREATININE, CA)2021-09-05 16:53:35 Test Item Value Reference Range Interpretation Comments NA (test code = 138 mmol/L 135-145 0541865270) K (test code = 4.8 mmol/L 3.5-5.0 1936096866) CL (test code = 110 mmol/L 98-108 H 1497353878) CO2 TOTAL (test code = 23 mmol/L 23-31 5963520605) AGAP (test code = 2-16 2405049775) BUN (test code = 50 mg/dL 7-23 H 0387096252) GLUCOSE (test code = 106 mg/dL 70-110 5501066376) CREATININE (test code = 3.36 mg/dL 0.60-1.25 H 2331386902) CALCIUM (test code = 8.9 mg/dL 8.6-10.6 8431011213) eGFR (test code = mL/min/1.73m2 6502812752) RADHA (test code = RADHA) Association of [...] tests). Lab Interpretation Abnormal (test code = 64878-9) [facility] CenterBlood [facility] - Peripheral # [id number] 15:16:24 Test Item Value Reference Range Interpretation Comments Blood Culture-Aerobic No organisms No growth Previo us (test code = 76226-0) isolated prelim inary verified result was Culture In Progress on 09/02/2021 at 13 02 CSTPrevious preliminary verified result was No growth a t 24 hours on 09/03/2021 at 22 13 KEY ACCOUNT DIRECTOR Blood Culture positive. No growth AA Previous Culture-Anaerobic See Blood Culture preli minary (test code = 39915-9) Workup for verifi ed result additional was Culture In information. Progress on 09/02/2021 at 13 02 CSTPrevious preliminary verified result was No growth a t 24 hours on 09/03/2021 at 10 01 KEY ACCOUNT DIRECTOR Lab Interpretation Abnormal (test code = 62677-3) [facility] GLUCOSE (AUTOMATED)2021-09-05 13:47:13 Test Item Value Reference Range Interpretation Comments POCT GLU (test code = 0840884464) 116 mg/dL 70-110 H Lab Interpretation (test code = Abnormal 23388-0) [facility] GLUCOSE (AUTOMATED)2021-09-05 02:37:48 Test Item Value Reference Range Interpretation Comments POCT GLU (test code = 4952066317) 238 mg/dL 70-110 H Lab Interpretation (test code = Abnormal 79076-1) [facility] GLUCOSE (AUTOMATED)2021-09-04 23:23:12 Test Item Value Reference Range Interpretation Comments POCT GLU (test code = 5892344403) 211 mg/dL 70-110 H Lab Interpretation (test code = Abnormal 93189-7) [facility]PROCALCITONIN2022-01-25 18:15:57 Test Item Value Reference Range Interpretation Comments Procalcitonin (test 0.11 ng/mL <0.07 H code = 2155388094) RADHA (test code = RADHA) INTERPRETATION OF [...] lung abscess/empyema. For further information please refer to:[email or web address] Lab Interpretation Abnormal (test code = 44654-4) [facility]21-[facility] 17:52:04 Test Item Value Reference Range Interpretation Comments POCT GLU (test code = 4784325610) 182 mg/dL 70-110 H Lab Interpretation (test code = Abnormal 21095-6) [facility]2021-09-04 13:47:06 Test Item Value Reference Range Interpretation Comments POCT GLU (test code = 8581335577) 170 mg/dL 70-110 H Lab Interpretation (test code = Abnormal 26887-7) [facility]TROP[facility] [id number] 12:23:39 Test Item Value Reference Interpretation Comments Range TROPONIN I (test 0.046 ng/mL See_Comment H [Automated code = 1687360827) message] The system which generated this result [...] biotin. Lab Interpretation Abnormal (test code = 32268-1) [facility] [id number] 12:20:23 Test Item Value Reference Range Interpretation Comments NT-proBNP (test code 6500 pg/mL See_Comment H [Autom ated = 0905217047) message] The system which generated this result transmitted reference range : <=450. The reference range was not used to interpret this result as normal/abnormal . RADHA (test code = RADHA) Biotin has been reported to cause a negative bias, interpret results relative to patient's use of biotin. Lab Interpretation Abnormal (test code = 10080-7) [facility] (NA, K, CL, CO2, GLUCOSE, BUN, CREATININE, CA)2021-09-04 12:12:37 Test Item Value Reference Range Interpretation Comments NA (test code = 137 mmol/L 135-145 5229225025) K (test code = 5.0 mmol/L 3.5-5.0 0847516918) CL (test code = 109 mmol/L 98-108 H 4506056702) CO2 TOTAL (test code = 21 mmol/L 23-31 L 9857478476) AGAP (test code = 2-16 2285314910) BUN (test code = 47 mg/dL 7-23 H 9904179980) GLUCOSE (test code = 192 mg/dL 70-110 H 3239748743) CREATININE (test code = 3.30 mg/dL 0.60-1.25 H 0446974156) CALCIUM (test code = 8.6 mg/dL 8.6-10.6 4981395874) eGFR (test code = mL/min/1.73m2 5104214587) RADHA (test code = RADHA) Association of [...] tests). Lab Interpretation Abnormal (test code = 95956-8) [facility] WITH [id number] 12:02:38 Test Item Value Reference Range Interpretation [...] (test code = 53.5 fL 38.5-51.6 H 64976-6) RDW-CV (test code = 15.4 % 12.1-15.4 788-0) PLT (test code = See_Comment [Automated 777-3) message] The system which generated this result transmit jose reference range : 150 - 328 10*3/ ?L. The reference range was not u sed to interpret th is result as normal/abnormal . MPV (test code = 10.5 fL 9.8-13.0 27461-9) NRBC/100 WBC (test See_Comment [Automat ed code = 5437425135) message] The system which generated this result transmit jose reference range : 0.0 - 10.0 /100 WBCs. The reference range was not used to interpret this result as normal/abnormal . NRBC x10^3 (test code <0.01 See_Comment [Auto mated = 9174976156) message] The system which generated this result transmit jose reference range : 10*3/?L. The reference range was not used to interpret this result as normal/abnormal . GRAN MAT (NEUT) % 90.0 % (test code = 770-8) IMM GRAN % (test code 0.60 % = 2345325308) LYMPH % (test code = 5.0 % 736-9) MONO % (test code = 4.3 % 5905-5) EOS % (test code = 0.0 % 713-8) BASO % (test code = 0.1 % 706-2) GRAN MAT x10^3(ANC) 10.53 10*3/uL 1.99-6.95 H (test code = 2178875860) IMM GRAN x10^3 (test 0.07 10*3/uL 0.00-0.06 H code = 4595256293) LYMPH x10^3 (test code 0.58 10*3/uL 1.09-3.23 L = 731-0) MONO x10^3 (test code 0.50 10*3/uL 0.36-1.02 = 742-7) EOS x10^3 (test code = <0.03 0.06-0.53 L 711-2) BASO x10^3 (test code <0.03 0.01-0.09 = 704-7) Lab Interpretation Abnormal (test code = 50959-0) [facility] GLUCOSE (AUTOMATED)2021-09-04 11:55:48 Test Item Value Reference Range Interpretation Comments POCT GLU (test code = 9154755580) 189 mg/dL 70-110 H Lab Interpretation (test code = Abnormal 80084-1) [facility] GLUCOSE (AUTOMATED)2021-09-04 01:41:45 Test Item Value Reference Range Interpretation Comments POCT GLU (test code = 9769313311) 166 mg/dL 70-110 H Lab Interpretation (test code = Abnormal 30252-8) [facility] [id number] 23:08:05 Test Item Value Reference Range Interpretation Comments VIT B12 (test code = >1000 240-930 H 5929737686) RADHA (test code = RADHA) Biotin has been reported to cause a positive bias, interpret results relative to patient's use of biotin. Lab Interpretation (test Abnormal code = 41605-5) [facility] GLUCOSE (AUTOMATED)2021-09-03 22:54:51 Test Item Value Reference Range Interpretation Comments POCT GLU (test code = 2423890086) 229 mg/dL 70-110 H Lab Interpretation (test code = Abnormal 21770-2) [facility] [id number] 17:34:51 Test Item Value Reference Range Interpretation Comments FREE T3 (test code = 0066865240) 2.41 pg/mL 2.77-5.27 L Lab Interpretation (test code = Abnormal 46698-4) [facility] GLUCOSE (AUTOMATED)2021-09-03 17:31:09 Test Item Value Reference Range Interpretation Comments POCT GLU (test code = 5541533261) 246 mg/dL 70-110 H Lab Interpretation (test code = Abnormal 75643-5) [facility] [id number] 17:00:47 Test Item Value Reference Range Interpretation Comments FREE T4 (test code = See_Comment [Autom ated message] 6375640039) The system [employer] generated this result transmitted ref erence range: 0.78 - 2 .20 ng/dL:. The ref erence range was not u sed to interpret this result as normal/abnor mal. Lab Interpretation (test Normal code = 13324-5) [facility] GLUCOSE (AUTOMATED)2021-09-03 14:17:24 Test Item Value Reference Range Interpretation Comments POCT GLU (test code = 8277411635) 232 mg/dL 70-110 H Lab Interpretation (test code = Abnormal 52306-6) [facility] [id number] 11:01:15 Test Item Value Reference Interpretation Comments Range TROPONIN I (test 0.035 ng/mL See_Comment H [Automated code = 9568465028) message] The system which generated this result [...] biotin. Lab Interpretation Abnormal (test code = 00672-5) [facility] [id number] 10:58:19 Test Item Value Reference Range Interpretation Comments NT-proBNP (test code 3920 pg/mL See_Comment H [Autom ated = 1802755070) message] The system which generated this result transmitted reference range : <=450. The reference range was not used to interpret this result as normal/abnormal . RADHA (test code = RADHA) Biotin has been reported to cause a negative bias, interpret results relative to patient's use of biotin. Lab Interpretation Abnormal (test code = 70369-9) [facility] [id number] 10:50:15 Test Item Value Reference Range Interpretation Comments MAGNESIUM (test code = 1348298124) 2.1 mg/dL 1.7-2.4 Lab Interpretation (test code = Normal 84463-9) [facility] (NA, K, CL, CO2, GLUCOSE, BUN, CREATININE, CA)2021-09-03 10:49:54 Test Item Value Reference Range Interpretation Comments NA (test code = 140 mmol/L 135-145 3110665653) K (test code = 5.0 mmol/L 3.5-5.0 6162147341) CL (test code = 112 mmol/L 98-108 H 1172172474) CO2 TOTAL (test code = 21 mmol/L 23-31 L 9040798288) AGAP (test code = 2-16 5143786017) BUN (test code = 41 mg/dL 7-23 H 0396299238) GLUCOSE (test code = 205 mg/dL 70-110 H 4856696483) CREATININE (test code = 2.95 mg/dL 0.60-1.25 H 6457871218) CALCIUM (test code = 8.6 mg/dL 8.6-10.6 0841005825) eGFR (test code = mL/min/1.73m2 6663307722) RADHA (test code = RADHA) Association of [...] tests). Lab Interpretation Abnormal (test code = 92836-0) [facility] CenterURIC [id number] 10:49:54 Test Item Value Reference Range Interpretation Comments URIC ACID (test code = 1766182691) 5.1 mg/dL 3.6-8.0 Lab Interpretation (test code = Normal 60296-7) [facility] with [id number] 10:06:10 Test Item Value Reference Range Interpretation Comments WBC (test code = See_Comment [Automated 3798-2) message] The sy stem which generated this result transmitted reference range : 4.20 - 10.70 10*3/?L. The reference range was not used to interpret this result as normal/abnormal . RBC (test code = See_Comment L [Automated 439-7) message] The sy stem which generated this [...] (test code = 53.0 fL 38.5-51.6 H 31680-4) RDW-CV (test code = 15.2 % 12.1-15.4 788-0) PLT (test code = See_Comment [Automated 777-3) message] The sy stem which generated this result transmitted reference range : 150 - 328 10*3/ ?L. The reference r hilary was not used to interpret this result as normal/abnormal . MPV (test code = 10.1 fL 9.8-13.0 01714-2) NRBC/100 WBC (test See_Comment [Automat ed code = 5687792838) message] The system which generated this result transmitted reference range : 0.0 - 10.0 /100 WBCs. The refer ence range was not u sed to interpret th is result as normal/abnormal . NRBC x10^3 (test code <0.01 See_Comment [Auto mated = 4996541868) message] The s ystem which generated this result transmitted reference range : 10*3/?L. The reference range was not used to interpret this result as normal/abnormal . GRAN MAT (NEUT) % 94.4 % (test code = 770-8) IMM GRAN % (test code 0.50 % = 5725044461) LYMPH % (test code = 4.2 % 736-9) MONO % (test code = 0.9 % 5905-5) EOS % (test code = 0.0 % 713-8) BASO % (test code = 0.0 % 706-2) GRAN MAT x10^3(ANC) 5.20 10*3/uL 1.99-6.95 (test code = 1061068995) IMM GRAN x10^3 (test 0.03 10*3/uL 0.00-0.06 code = 0556674515) LYMPH x10^3 (test code 0.23 10*3/uL 1.09-3.23 L = 731-0) MONO x10^3 (test code 0.05 10*3/uL 0.36-1.02 L = 742-7) EOS x10^3 (test code = <0.03 0.06-0.53 L 711-2) BASO x10^3 (test code <0.03 0.01-0.09 = 704-7) Lab Interpretation Abnormal (test code = 93499-5) [facility] [id number] 07:55:03 Test Item Value Reference Range Interpretation Comments URIC ACID (test code = 0141882233) 5.3 mg/dL 3.6-8.0 Lab Interpretation (test code = Normal 98491-3) [facility] CenterPROCALCITONIN2022-01-24 07:43:46 Test Item Value Reference Range Interpretation Comments Procalcitonin (test 0.12 ng/mL <0.07 H code = 3311222727) RADHA (test code = RADHA) INTERPRETATION OF [...] lung abscess/empyema. For further information please refer to:[email or web address] Lab Interpretation Abnormal (test code = 75420-6) [facility] CenterCHARLES [id number] 03:12:06 Test Item Value Reference Interpretation Comments Range TROPONIN I (test 0.029 ng/mL See_Comment [Automated code = 9494444961) message] The system which generated this result [...] biotin. Lab Interpretation Normal (test code = 05519-3) [facility] CenterPhosphorus [id number] 02:59:26 Test Item Value Reference Range Interpretation Comments PHOSPHORUS (test code = 6949019707) 3.5 mg/dL 2.5-5.0 Lab Interpretation (test code = Normal 02464-3) [facility] CenterFERRITIN [id number] 02:43:44 Test Item Value Reference Range Interpretation Comments FERRITIN (test code = 132.0 ng/mL 18.0-464.0 6760379231) RADHA (test code = RADHA) Biotin has been reported to cause a negative bias, interpret results relative to patient's use of biotin. Lab Interpretation (test Normal code = 67293-2) [facility] CenterGLYCOSYLATED HEMOGLOBIN (A1C)2021-09-03 02:22:16 Test Item Value Reference Range Interpretation Comments HGB A1C (test code = 6.3 % 4.0-5.7 H 4548-4) RADHA (test code = RADHA) Reference RangesNormal: <5.7%Prediabetes: 5.7 - 6.4%Diabetes: > 6.5% Lab Interpretation (test Abnormal code = 48269-1) [facility] CenterIRON [id number] 02:15:44 Test Item Value Reference Range Interpretation Comments IRON (test code = 2344075649) 21 ug/dL 50-160 L TIBC (test code = 7994887736) 294 ug/dL 250-410 % FE SAT (test code = 4872498168) 7 % 20-50 L Lab Interpretation (test code = Abnormal 61504-6) [facility] CenterTHYROID STIMULATING [id number] 01:17:43 Test Item Value Reference Range Interpretation Comments TSH (test code = See_Comment H [Automated message] 1878073303) The system [employer] generated this result transmitted ref erence range: 0.45 - 4 .70 mIU/L. The refe rence range was not u sed to interpret this result as normal/abnor mal. Lab Interpretation (test Abnormal code = 22191-1) [facility] GLUCOSE (AUTOMATED)2021-09-02 22:51:11 Test Item Value Reference Range Interpretation Comments POCT GLU (test code = 6642136594) 169 mg/dL 70-110 H Lab Interpretation (test code = Abnormal 63839-8) [facility] GLUCOSE (AUTOMATED)2021-09-02 21:35:04 Test Item Value Reference Range Interpretation Comments POCT GLU (test code = 0716472497) 176 mg/dL 70-110 H Lab Interpretation (test code = Abnormal 70447-7) [facility] Arterial Blood Gas.2021-09-02 16:59:20 Test Item Value Reference Range Interpretation Comments PH (test code = 2) 7.35-7.45 L PCO2 (test code = See_Comment [Automate d message] 6621928726) The system [employer] generated this result transmitted ref erence range: 35 - 45 mmHg. The reference r hilary was not used to interpret this result as normal/abnor mal. PO2 (test code = See_Comment L [Automated message] 9837596415) The system [employer] generated this result transmitted ref erence range: 80 - 100 mmHg. The reference r hilary was not used to interpret this result as normal/abnor mal. HCO3 (test code = See_Comment L [Automate d message] 6602546167) The system [employer] generated this result transmitted ref erence range: 22 - 26 mEq/L. The reference r hilary was not used to interpret this result as normal/abnor mal. BE (test code = See_Comment L [Automated message] 4120857070) The system [employer] generated this result transmitted ref erence range: -3.0 - 3 .0 mEq/L. The refe rence range was not u sed to interpret this result as normal/abnor mal. Lab Interpretation (test Abnormal code = 83550-8) [facility]TROP[facility]IN [id number] 16:13:32 Test Item Value Reference Interpretation Comments Range TROPONIN I (test 0.042 ng/mL See_Comment H [Automated code = 8840793992) message] The system which generated this result [...] biotin. Lab Interpretation Abnormal (test code = 10056-9) [facility] CenterN-[facility]MINAL [id number] 16:10:31 Test Item Value Reference Range Interpretation Comments NT-proBNP (test code 3090 pg/mL See_Comment H [Autom ated = 0280819207) message] The system which generated this result transmitted reference range : <=450. The reference range was not used to interpret this result as normal/abnormal . RADHA (test code = RADHA) Biotin has been reported to cause a negative bias, interpret results relative to patient's use of biotin. Lab Interpretation Abnormal (test code = 58890-8) [facility] CenterCOMP. METABOLIC PANEL (34655)2021-09-02 16:02:09 Test Item Value Reference Range Interpretation Comments NA (test code = 141 mmol/L 135-145 1079132218) K (test code = 5.3 mmol/L 3.5-5.0 H 6760843281) CL (test code = 113 mmol/L 98-108 H 1384893088) CO2 TOTAL (test code = 21 mmol/L 23-31 L 5953740872) AGAP (test code = 2-16 1622223387) BUN (test code = 37 mg/dL 7-23 H 0989887362) GLUCOSE (test code = 167 mg/dL 70-110 H 9276138309) CREATININE (test code = 2.91 mg/dL 0.60-1.25 H 2957638055) TOTAL BILI (test code = 0.5 mg/dL 0.1-1.7 5132756860) CALCIUM (test code = 8.6 mg/dL 8.6-10.6 0606587556) T PROTEIN (test code = 6.4 g/dL 6.3-8.2 0087933107) ALBUMIN (test code = 3.6 g/dL 3.5-5.0 1872804900) ALK PHOS (test code = 128 U/L 34-122 H 4838830635) ALTv (test code = 21 U/L 5-50 2-6) AST(SGOT) (test code = 17 U/L 13-40 9984989920) eGFR (test code = mL/min/1.73m2 5689525105) RADHA (test code = RADHA) Association of [...] tests). Lab Interpretation Abnormal (test code = 50252-8) [facility] CenterLIPASE2022-01-23 16:01:29 Test Item Value Reference Range Interpretation Comments LIPASE (test code = 8658189680) 102 U/L 0-220 Lab Interpretation (test code = Normal 45174-1) [facility] CenterACTIVATED PARTIAL THRMPLAS [id number] 15:59:08 Test Item Value Reference Range Interpretation Comments APTT Patient (test See_Comment [Automat ed code = 3173-2) message] The system which generated this result transmitted reference range : 23 - 38 Seconds . The reference range was not used to interpr et this result as normal/abnormal . RADHA (test code = RADHA) The [facility] patient population mean normal value for aPTT is 30 seconds. Lab Interpretation Normal (test code = 76710-3) [facility] CenterPROTHROMBIN TIME / [id number] 15:56:48 Test Item Value Reference Range Interpretation [...] tions. Lab Interpretation (test Normal code = 19416-0) [facility] CenterCBC WITH [id number] 15:48:46 Test Item Value Reference Range Interpretation Comments WBC (test code = See_Comment [Automated 6890-2) message] The sy stem which generated this result transmitted reference range : 4.20 - 10.70 10*3/?L. The reference range was not used to interpret this result as normal/abnormal . RBC (test code = See_Comment L [Automated 759-8) message] The sy stem which generated this [...] (test code = 54.7 fL 38.5-51.6 H 47563-9) RDW-CV (test code = 15.5 % 12.1-15.4 H 788-0) PLT (test code = See_Comment [Automated 777-3) message] The sy stem which generated this result transmitted reference range : 150 - 328 10*3/ ?L. The reference r hilary was not used to interpret this result as normal/abnormal . MPV (test code = 9.8 fL 9.8-13.0 83359-0) NRBC/100 WBC (test See_Comment [Automat ed code = 6186093455) message] The system which generated this result transmitted reference range : 0.0 - 10.0 /100 WBCs. The refer ence range was not u sed to interpret th is result as normal/abnormal . NRBC x10^3 (test code <0.01 See_Comment [Auto mated = 0861600185) message] The s ystem which generated this result transmitted reference range : 10*3/?L. The reference range was not used to interpret this result as normal/abnormal . GRAN MAT (NEUT) % 76.7 % (test code = 770-8) IMM GRAN % (test code 0.40 % = 2118652002) LYMPH % (test code = 14.6 % 736-9) MONO % (test code = 6.4 % 5905-5) EOS % (test code = 1.5 % 713-8) BASO % (test code = 0.4 % 706-2) GRAN MAT x10^3(ANC) 6.25 10*3/uL 1.99-6.95 (test code = 0667988163) IMM GRAN x10^3 (test 0.03 10*3/uL 0.00-0.06 code = 7674288045) LYMPH x10^3 (test code 1.19 10*3/uL 1.09-3.23 = 731-0) MONO x10^3 (test code 0.52 10*3/uL 0.36-1.02 = 742-7) EOS x10^3 (test code = 0.12 10*3/uL 0.06-0.53 711-2) BASO x10^3 (test code 0.03 10*3/uL 0.01-0.09 = 704-7) Lab Interpretation Abnormal (test code = 58606-5) [facility]"
[2023-03-24] MEDS ORDERED: METHYLPREDNISOLONE 125 MG INJ ONE (06:37)
[2023-03-24] MEDS ORDERED: ALBUTEROL 2.5 MG/3 ML NEB SOL ONE (06:37)
[2023-03-24] MEDS ORDERED: CEFTRIAXONE 2000 MG/VIAL ONE (06:37)
[2023-03-24] MEDS ORDERED: NA CHLORIDE 0.9% 500 ML ONE (06:38)
[2023-03-24] MEDS ORDERED: NA CHLORIDE 0.9% 250 ML ONE (06:38)
[2023-03-24] MEDS ORDERED: IPRATROPIUM BROM 0.5MG/2.5ML ONE (06:38)
[2023-03-24] MEDS ORDERED: AZITHROMYCIN 500 MG INJ IVPB ONE (06:38)
[2023-03-24 06:42] LABS: Hematocrit 24.6 % (39.6-49.0); Lymphocytes % 8.8 % (15.3-44.8); MCV 96.1 fL (80-100); MPV 7.6 fL (7.6-11.3); Platelets 242 thou/uL (152-406); RBC Red Blood Cell Count 2.56 M/uL (4.33-5.43)
[2023-03-24 06:46] LABS: Protime INR 1.2
[2023-03-24 06:53] LABS: Albumin 2.4 g/dL (3.4-5.0); Bilirubin Total 0.4 mg/dL (0.2-1.0); Protein, Total 7.5 g/dL (6.4-8.2)
[2023-03-24 06:58] LABS: Potassium 6.3 mEq/L (3.5-5.1)
--- NOTE | 2023-03-24 07:12 | ER ---
Nurse's Notes [facility] Name: Frank López Age: 77 yrs Sex: Male : 1945 Arrival Date: 03/24/2023 Time: 06:00 Bed 4 Private MD: Diagnosis: Community-acquired pneumonia;Sepsis;Hyperkalemia Presentation: 03/24 06:02 Chief complaint: EMS states: toned out for SOB/ Difficulty breathing. 80% oxygen on lg3 room air. Placed on 4LNC. O2 saturation 99/100 on 4L. cough X1 week worsening over night. 7/10 pain to back and shoulders. 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 Coronavirus screen: Client denies travel out of the [place] in the last 14 days. Client presents with at least one sign or symptom that may indicate coronavirus-19. Standard/surgical mask placed on the client. Ebola Screen: No symptoms or risks identified at this time. Initial Sepsis Screen: Does the patient meet any 2 criteria? RR > 20 per min. Temp <36.0*C (96.8*F)) or > 38.3*C (100.9*F). Yes Does the patient have a suspected source of infection? Yes: Productive cough/pneumonia If YES to both, name of provider notified: Bienvenido Trujillo MD. Risk Assessment: Do you want to hurt yourself or someone else? Patient reports no desire to harm self or others. Onset of symptoms is unknown. 06:02 Method Of Arrival: EMS: [facility] 3 06:02 Acuity: GAVI 3 lg3 Triage Assessment: 06:05 General: Appears distressed, uncomfortable, Behavior is calm, cooperative. Pain: lg3 Complains of pain in posterior chest and back. EENT: No deficits noted. No signs and/or symptoms were reported regarding the EENT system. Neuro: No deficits noted. Robert Agitation-Sedation Scale (RASS): 0 - Alert and Calm Level of Consciousness is awake, alert, obeys commands, Oriented to person, place, time, situation. Cardiovascular: No deficits noted. Denies chest pain, Capillary refill < 3 seconds Clubbing of nail beds is absent JVD is absent Patient's skin is warm and dry. Dialysis shunt: in the left arm. Respiratory: Airway is patent Respiratory effort is with nasal flaring, Respiratory pattern is tachypnea Breath sounds with wheezes bilaterally. GI: No deficits noted. No signs and/or symptoms were reported involving the gastrointestinal system. Abdomen is round non-distended, obese. : No deficits noted. No signs and/or symptoms were reported regarding the genitourinary system. Derm: No deficits noted. Skin is intact, is healthy with good turgor, Skin is dry, Skin is normal, Skin temperature is warm. Musculoskeletal: No deficits noted. Circulation, motion, and sensation intact. Range of motion: intact in all extremities. Historical: - Allergies: 06:05 Codeine; lg3 06:05 Sulfa (Sulfonamide Antibiotics); lg3 - Home Meds: 06:05 Unable to obtain [Active]; lg3 - PMHx: 06:05 Atrial fibrillation; Congestive heart failure; COPD; Diabetes - NIDDM; Dialysis- lg3 T/Th/Sat; High Cholesterol; Hypertension; - PSHx: 06:05 Nephrectomy; left upper arm fistula; cadiac stents; right leg; lg3 - Immunization history:: Adult Immunizations up to date, Client reports receiving the 2nd dose of the Covid vaccine, Pneumococcal vaccine is up to date, Flu vaccine is up to date. - Social history:: Smoking status: Patient denies any tobacco usage or history of. Patient/guardian denies using alcohol, street drugs. - Family history:: not pertinent. Screenin:09 [facility] ED Fall Risk Assessment (Adult) History of falling in the last 3 months, lg3 including since admission No falls in past 3 months (0 pts). Abuse screen: Denies threats or abuse. Denies injuries from another. Nutritional screening: No deficits noted. Tuberculosis screening: No symptoms or risk factors identified. Assessment: 06:08 General: see triage assessment . lg3 06:59 Reassessment: potassium of 6.3, reported to provider. vc1 07:30 Reassessment: Patient appears in no apparent distress at this time. Patient and/or ph family updated on plan of care and expected duration. Pain level reassessed. 09:20 Pain: Denies pain. Neuro: Level of Consciousness is sleepy, easy to awaken to verbal aa5 stimuli. . Oriented to person, place, time, situation, Appropriate for age. Cardiovascular: Dialysis shunt: in the left arm, with palpable thrill, with auscultated bruit, with no erythema, with no edema, no bleeding noted. Respiratory: Airway is patent Respiratory effort is even, unlabored, Respiratory pattern is regular, symmetrical, O2 administration via 3 L NC. Derm: Skin is pink, warm \T\ dry. 10:00 Reassessment: Attempted to call report to [facility]-personal phone, no answer, aa5 will attempt again. . 10:05 Reassessment: Report given to CESAR Guzman, admitting nurse, Room 225. aa5 Vital Signs: 06:02 BP 125 / 62; Pulse 66; Resp 26 S; Temp 100.6(O); Pulse Ox 100% on 4 lpm NC; Weight lg3 86.18 kg (M); Height 5 ft. 9 in. (R); Pain 7/10; 08:50 BP 115 / 56; Pulse 65; Resp 18; Pulse Ox 100% on R/A; ld1 09:40 BP 100 / 55; Pulse 64; Resp 20; Temp 98.6; Pulse Ox 95% on 3 lpm NC; rs5 06:02 Body Mass Index 28.06 (86.18 kg, 175.26 cm) lg3 06:02 Pain Scale: Adult lg3 ED Course: 06:01 Patient arrived in ED. vc1 06:02 Bienvenido Trujillo MD is Attending Physician. rt 06:05 Triage completed. lg3 06:05 Arm band placed on right wrist. lg3 06:09 Patient has correct armband on for positive identification. Placed in gown. Bed in low lg3 position. Call light in reach. Side rails up X 1. Client placed on continuous cardiac and pulse oximetry monitoring. NIBP monitoring applied. hall monitor on. Door closed. Noise minimized. 06:09 Oxygen administration via nasal cannula \T\ 4L/min. lg3 06:23 Frank Johnson RN is Primary Nurse. jb4 06:29 Chest Single View XRAY In Process Unspecified. EDMS 07:11 Quinn Albert MD is Hospitalizing Provider. rt 09:05 Report received from Estefany Hanks RN. aa5 09:12 No provider procedures requiring assistance completed. Patient admitted, IV remains in ph place. Administered Medications: 06:42 Drug: MethylPrednisoLONE IVP 125 mg Route: IVP; Site: right antecubital; jb4 06:43 Drug: NS 0.9% IV 500 ml Route: IV; Rate: bolus; Site: right antecubital; 4 06:43 Drug: Rocephin IV 2 grams Route: IV; Rate: calculated rate; Site: right antecubital; jb4 06:43 Drug: DuoNeb Nebulize (3:1) (2.5 mg - 0.5 mg) 3 ml Route: Nebulizer; 4 06:49 Drug: AZITHromycin IVPB 500 mg Route: IVPB; Infused Over: 1 hrs; Site: right jb4 antecubital; 07:53 Drug: Calcium Gluconate IVPB 1 grams Route: IVPB; Infused Over: 60 mins; Site: right ld1 wrist; 07:53 Drug: Kayexalate PO 30 grams Route: PO; ld1 08:19 Drug: Sodium Bicarbonate IVP 1 amp Route: IVP; Site: right antecubital; ld1 08:19 Drug: D10 in Water IVP 250 ml Route: IVP; Site: right antecubital; 1 08:44 Drug: Insulin Regular Human IVP 10 units {Co-Signature: ph (Estefany Hanks RN).} Route: ld1 IVP; Site: right antecubital; Medication: 09:12 VIS not applicable for this client. ph Outcome: 07:11 Decision to Hospitalize by Provider. rt 10:30 Patient left the ED. aa5 Signatures: Dispatcher [employer] EDKY Janeth Maher RN RN aa5 Estefany Hanks RN RN ph Frank Johnson RN RN jb4 Marcia Ramirez RN RN lg3 Mahogany Farah RN RN ld1 Mary Ann Marshall RN RN 1 Bienvenido Trujillo MD MD rt Butch Gonzalez RN RN rs5 Estefany Hanks RN ph
--- NOTE | 2023-03-24 07:12 | EDPHYS ---
Physician Documentation [facility] Name: Frank López Age: 77 yrs Sex: Male : 1945 Arrival Date: 03/24/2023 Time: 06:00 Bed 4 Private MD: ED Physician Bienvenido Trujillo HPI: 03/24 07:13 This 77 yrs old Male presents to ER via EMS with complaints of Shortness Of Breath. rt 07:13 Patient presents to the ED with dyspnea starting this evening. Reports of wheezing. He rt states that he does have a history of COPD, ESRD, last had dialysis on Friday. Denies other acute complaints at this time. Symptoms are severe in severity, no other aggravating alleviating factors. Patient was reportedly hypoxic to about 80% on room air at home.. Historical: - Allergies: 06:05 Codeine; lg3 06:05 Sulfa (Sulfonamide Antibiotics); lg3 - Home Meds: 06:05 Unable to obtain [Active]; lg3 - PMHx: 06:05 Atrial fibrillation; Congestive heart failure; COPD; Diabetes - NIDDM; Dialysis- lg3 T/Th/Sat; High Cholesterol; Hypertension; - PSHx: 06:05 Nephrectomy; left upper arm fistula; cadiac stents; right leg; lg3 - Immunization history:: Adult Immunizations up to date, Client reports receiving the 2nd dose of the Covid vaccine, Pneumococcal vaccine is up to date, Flu vaccine is up to date. - Social history:: Smoking status: Patient denies any tobacco usage or history of. Patient/guardian denies using alcohol, street drugs. - Family history:: not pertinent. ROS: 07:13 Constitutional: Negative for fever, chills, and weight loss, Neck: Negative for injury, rt pain, and swelling, Cardiovascular: Negative for chest pain, palpitations, and edema, Abdomen/GI: Negative for abdominal pain, nausea, vomiting, diarrhea, and constipation, Skin: Negative for injury, rash, and discoloration, Neuro: Negative for headache, weakness, numbness, tingling, and seizure, Psych: Negative for depression, anxiety, suicide ideation, homicidal ideation, and hallucinations. 07:13 Respiratory: Positive for cough, shortness of breath. Exam: 07:13 Constitutional: This is a well developed, well nourished patient who is awake, alert, rt and in no acute distress. Head/Face: Normocephalic, atraumatic. Cardiovascular: Regular rate and rhythm with a normal S1 and S2. No gallops, murmurs, or rubs. Normal PMI, no JVD. No pulse deficits. Skin: Warm, dry with normal turgor. Normal color with no rashes, no lesions, and no evidence of cellulitis. MS/ Extremity: Pulses equal, no cyanosis. Neurovascular intact. Full, normal range of motion. Neuro: Awake and alert, GCS 15, oriented to person, place, time, and situation. Cranial nerves II-XII grossly intact. Motor strength 5/5 in all extremities. Sensory grossly intact. Cerebellar exam normal. Normal gait. Psych: Awake, alert, with orientation to person, place and time. Behavior, mood, and affect are within normal limits. 07:13 Chest/axilla: Dialysis catheter noted to the anterior chest. 07:13 ECG was reviewed by the Attending Physician. 07:13 Respiratory: Wheezes heard on all lung wetzel, moderate respiratory distress. Vital Signs: 06:02 BP 125 / 62; Pulse 66; Resp 26 S; Temp 100.6(O); Pulse Ox 100% on 4 lpm NC; Weight lg3 86.18 kg (M); Height 5 ft. 9 in. (R); Pain 7/10; 08:50 BP 115 / 56; Pulse 65; Resp 18; Pulse Ox 100% on R/A; ld1 09:40 BP 100 / 55; Pulse 64; Resp 20; Temp 98.6; Pulse Ox 95% on 3 lpm NC; rs5 06:02 Body Mass Index 28.06 (86.18 kg, 175.26 cm) lg3 06:02 Pain Scale: Adult lg3 MDM: 06:04 Patient medically screened. rt 07:13 Differential diagnosis: pneumonia, Pneumothorax pulmonary edema. Antibiotic rt administration: Rocephin and Zithromax given. Data reviewed: vital signs, nurses notes, lab test result(s), EKG, radiologic studies. Consideration of Admission/Observation Patient was admitted/placed on observation. Management of patient was discussed with the following: Hospitalist: Agrees to admit. Medical Anthropologist: Discussed hyperkalemia with nephrology. I considered the following discharge prescriptions or medication management in the emergency department Medications were administered in the Emergency Department. See MAR. Independent interpretation of the following test(s) in the Emergency Department X-Ray: My interpretation is Pneumonia seen on my interpretation of the x-ray images. Test considered but Not performed: CT: Low suspicion for PE, CT angiogram not indicated. Care significantly affected by the following chronic conditions: Chronic Obstructive Pulmonary Disease, Chronic Kidney Disease. Counseling: I had a detailed discussion with the patient and/or guardian regarding: the historical points, exam findings, and any diagnostic results supporting the discharge/admit diagnosis, lab results, radiology results, the need for further work-up and treatment in the hospital. Response to treatment: the patient's symptoms have markedly improved after treatment. 03/24 06:03 Order name: Blood Culture Adult (2) rt 03/24 06:03 Order name: CBC with Diff; Complete Time: 07:00 rt 03/24 06:03 Order name: CMP; Complete Time: 07:00 rt 03/24 06:03 Order name: Lactate w/ 2H reflex if indic.; Complete Time: 07:00 rt 03/24 06:03 Order name: Protime (+inr); Complete Time: 07:00 rt 03/24 06:03 Order name: Ptt, Activated; Complete Time: 07:00 rt 03/24 06:04 Order name: Troponin High Sensitivity; Complete Time: 07:00 rt 03/24 06:04 Order name: BNP; Complete Time: 07:00 rt 03/24 08:59 Order name: Magnesium EDMS 03/24 08:59 Order name: Phosphorus EDMS 03/24 08:59 Order name: T4 Free EDMS 03/24 08:59 Order name: Thyroid Stimulating Hormone EDMS 03/24 08:59 Order name: Urinalysis w/ reflexes EDMS 03/24 09:00 Order name: Basic Metabolic Panel EDMS 03/24 09:00 Order name: Basic Metabolic Panel EDMS 03/24 09:00 Order name: CBC with Automated Diff EDMS 03/24 09:00 Order name: CBC with Automated Diff EDMS 03/24 09:00 Order name: Lipid Profile EDMS 03/24 09:00 Order name: Lipid Profile EDMS 03/24 06:03 Order name: Chest Single View XRAY rt 03/24 06:03 Order name: EKG; Complete Time: 06:04 rt 03/24 08:59 Order name: CONS Physician Consult EDMS 03/24 08:59 Order name: Renal EDMS 03/24 06:03 Order name: Accucheck; Complete Time: :23 rt 03/24 06:03 Order name: Cardiac monitoring; Complete Time: : rt 03/24 06:04 Order name: EKG - Nurse/Tech; Complete Time: 06:23 rt 03/24 06:04 Order name: IV Saline Lock - Large Bore; Complete Time: : rt 03/24 06:04 Order name: Labs collected and sent; Complete Time: : rt 03/24 06:04 Order name: O2 Per Protocol; Complete Time: : rt 03/24 06:04 Order name: O2 Sat Monitoring; Complete Time: : rt 03/24 06:04 Order name: Vital Signs; Complete Time: : rt EC:13 Rate is 72 beats/min. Rhythm is regular, Normal Sinus Rhythm with No ectopy. QRS Fowler rt is Normal. AK interval is normal. QRS interval is normal. QT interval is normal. No Q waves. T waves are Peaked. No ST changes noted. Interpreted by me. Administered Medications: 06:42 Drug: MethylPrednisoLONE IVP 125 mg Route: IVP; Site: right antecubital; jb4 06:43 Drug: NS 0.9% IV 500 ml Route: IV; Rate: bolus; Site: right antecubital; jb4 06:43 Drug: Rocephin IV 2 grams Route: IV; Rate: calculated rate; Site: right antecubital; jb4 06:43 Drug: DuoNeb Nebulize (3:1) (2.5 mg - 0.5 mg) 3 ml Route: Nebulizer; jb4 06:49 Drug: AZITHromycin IVPB 500 mg Route: IVPB; Infused Over: 1 hrs; Site: right jb4 antecubital; 07:53 Drug: Calcium Gluconate IVPB 1 grams Route: IVPB; Infused Over: 60 mins; Site: right ld1 wrist; 07:53 Drug: Kayexalate PO 30 grams Route: PO; ld1 08:19 Drug: Sodium Bicarbonate IVP 1 amp Route: IVP; Site: right antecubital; ld1 08:19 Drug: D10 in Water IVP 250 ml Route: IVP; Site: right antecubital; ld1 08:44 Drug: Insulin Regular Human IVP 10 units {Co-Signature: ph (Estefany Hanks RN).} Route: ld1 IVP; Site: right antecubital; Disposition: 07:13 Critical Care:. rt Disposition Summary: 03/24/23 07:11 Hospitalization Ordered Hospitalization Status: Inpatient Admission rt Provider: Quinn Albert rt Location: Telemetry/[facility]Sur (Inpatient) rt Condition: Fair rt Problem: new rt Symptoms: have improved rt Bed/Room Type: Standard rt Room Assignment: 225(03/24/23 09:37) dw Diagnosis - Community-acquired pneumonia rt - Sepsis rt - Hyperkalemia rt Forms: - Medication Reconciliation Form rt - SBAR form rt - Leadership Thank You Letter rt Critical care time excluding procedures: 07:13 Critical care time: Bedside Care: 30 minutes, Consultation: 10 minutes. Total time: 40 rt minutes Signatures: Dispatcher [employer] Ruth Newberry RN RN dw Frank Johnson RN RN jb4 Marcia Ramirez RN RN lg3 Mahogany Farah RN RN ld1 Bienvenido Trujillo MD MD rt Estefany Hanks RN ph Corrections: (The following items were deleted from the chart) 09:37 07:11 rt dw
[2023-03-24] MEDS ORDERED: SOD POLYSTYREN SUL 15 GM/60 ML UCUP ONE (07:46)
[2023-03-24] MEDS ORDERED: INSULIN -REGULAR HUMAN 50 UNIT/0.5 ML ML ONE (07:46)
[2023-03-24] MEDS ORDERED: SODIUM BICARB 50 MEQ/50ML VIAL ONE (07:46)
[2023-03-24] MEDS ORDERED: CALCIUM GLUCONATE 1 GM IVPB 1 GM/50 ML BAG IV ONE (07:47)
[2023-03-24] MEDS ORDERED: D10W 250 ML IV ONE (07:47)
[2023-03-24] MEDS ORDERED: ACETAMINOPHEN 325 MG TABLET PO PRN (08:54)
[2023-03-24] MEDS ORDERED: ONDANSETRON 4 MG/2 ML VIAL IV PRN (08:57)
[2023-03-24] MEDS ORDERED: HEPARIN 5000 UNIT/ML 1 ML VIAL SQ SCH (09:00)
[2023-03-24] MEDS: ASPIRIN 81 MG CHEWABLE TABLET PO SCH (09:00)
--- NOTE | 2023-03-24 09:05 | P.HP ---
Certification for Inpatient Patient admitted to: Inpatient With expected LOS: >2 Midnights Patient will require the following post-hospital care: None Practitioner: I am a practitioner with admitting privileges, knowledge of patient current condition, hospital course, and medical plan of care. Services: Services provided to patient in accordance with Admission requirements found in Title 42 Section 412.3 of the Code of Federal Regulations Patient History Date of Service: 03/24/23 Reason for admission: Shortness of breath. History of Present Illness: Patient is a 77-year-old male with a past medical history significant for atrial fibrillation, COPD, DM2, ESRD, hypertension, hyperlipidemia who presents with complaint of shortness of breath onset last night. Patient reported associated signs and symptoms of cough, chills and wheezing. Patient denies any other signs and symptoms. Symptoms are aggravated or relieved by nothing. Patient decided to present to the hospital due to worsening symptoms. Allergies codeine Allergy (Verified 08/08/21 02:36) Shortness of breath Sulfa (Sulfonamide Antibiotics) Allergy (Verified 08/08/21 02:36) Shortness of breath Home Medications: Atorvastatin Calcium 40 mg PO BEDTIME 08/02/18 Finasteride [Proscar*] 5 mg PO DAILY 08/02/18 Gabapentin 300 mg PO BEDTIME 08/02/18 Paroxetine HCl [Paxil] 20 mg PO DAILY 08/02/18 allopurinoL [Zyloprim*] 100 mg PO DAILY 08/03/18 Budesonide/Formoterol Fumarate [Symbicort 160-4.5 Mcg Inhaler] 2 puff IH BID #60 hfa.aer.ad 08/06/18 Cholecalciferol (Vitamin D3) [Vitamin D3] 25 mcg PO DAILY 08/08/21 Cyanocobalamin [Vitamin B-12*] 2,000 mcg PO DAILY 08/08/21 Ipratropium/Albuterol Sulfate [Combivent Respimat 20-100 Mcg] 1 puff IH Q6H PRN 08/08/21 Apixaban [Eliquis *] 2.5 mg PO BID #60 tablet 08/11/21 Furosemide [Lasix] 40 mg PO DAILY #30 tablet 08/11/21 Albuterol Neb [Proventil 0.083% Neb Soln] 3 ml NEB PRN PRN 09/04/22 Ipratropium Neb [Atrovent*] 2.5 ml NEB PRN PRN 09/04/22 Tamsulosin [Flomax*] 0.4 mg PO BEDTIME 09/04/22 Arformoterol Tartrate [Brovana] 15 mcg NEB BIDRESP #60 vial.neb 09/07/22 Cholecalciferol (Vitamin D3) [Vitamin D 1000 Iu Tab*] 1,000 unit PO DAILY #30 tab 09/07/22 Ipratropium Neb [Atrovent*] 0.5 mg NEB Q12H #60 amp 09/07/22 Melatonin 5 mg PO BEDTIME PRN PRN #30 09/07/22 Midodrine HCl [Proamatine*] 5 mg PO TID #90 tab 09/07/22 Heparin [Heparin 1,000 units/mL *] 2,000 unit IV EVERY HD PRN vial 10/31/22 Heparin [Heparin 1,000 units/mL *] 4,000 unit IV EVERY HD PRN vial 10/31/22 Hydrocodone 5/APAP 325 [Finley 5/325*] 1 tab PO Q6H PRN tab 10/31/22 Mannitol 25% [Mannitol*] 12.5 gm IV EVERY HD PRN vial 10/31/22 Meropenem [Merrem*] 1 gm IV DAILY #12 vial 10/31/22 Vancomycin 1 gm IV T,,S #5 vial 10/31/22 - Past Medical/Surgical History Diabetic: Yes -: COPD -: DM II with polyneuropathy -: ESRD on HD -: HTN -: CAD s/p PCI -: HLD -: PAD/ AAA -: Diastolic CHF -: Anemia/ Iron Deficiency -: monoclonal gammopathy -: history of bladder cancer -: synovial chondromatosis -: Left Nephrectomy r/t 1994 -: Peripheral vascular disease -: Peripheral vascular disease Psychosocial/ Personal History: Patient is . - Family History Mother -: Heart disease, Lung disease - Social History Smoking Status: Former smoker Alcohol use: No CD- Drugs: No Caffeine use: Yes Place of Residence: Home Review of Systems General: Chills Eyes: Unremarkable ENT: Unremarkable Respiratory: Cough, Shortness of Breath, Wheezing Cardiovascular: Unremarkable Gastrointestinal: Unremarkable Genitourinary: Unremarkable Musculoskeletal: Unremarkable Integumentary: Unremarkable Neurological: Unremarkable Lymphatics: Unremarkable Physical Examination - Physical Exam General: Alert, In no apparent distress, Oriented x3, Cooperative HEENT: Atraumatic, PERRLA, Mucous membr. moist/pink, EOMI, Sclerae nonicteric Neck: Supple, 2+ carotid pulse no bruit, No LAD, Without JVD or thyroid abnormality Respiratory: Expiratory wheezes Cardiovascular: No edema, Irregular heart rate/rhythm Capillary refill: <2 Seconds Gastrointestinal: Normal bowel sounds, Soft and benign, No tenderness Musculoskeletal: No clubbing, No swelling, No tenderness Integumentary: No rashes, No significant lesion Neurological: Normal speech, Normal tone, Normal affect Lymphatics: No axilla or inguinal lymphadenopathy - Studies Laboratory Data (last 24 hrs) 03/24/23 03/24/23 03/24/23 06:20 06:20 06:20 WBC 11.90 H Hgb 7.7 L Hct 24.6 L Plt Count 242 PT 13.2 H INR 1.20 APTT 40.8 H Sodium 134 L Potassium 6.3 H* BUN 54 H Creatinine 4.63 H Glucose 122 H Total Bilirubin 0.4 AST 19 ALT 26 Alkaline Phosphatase 84 Assessment and Plan - Plan --Pneumonia. Continue antibiotics, neb treatment with albuterol\Atrovent and O2 therapy. Continue home medications. --Acute on chronic COPD exacerbation. Continue current treatment regimen. --ESRD. Nephrology consulted.-We await further recommendations. --Hyperkalemia. Patient medicated with dextrose\insulin, sodium bicarb, and Kayexalate. Further management per receiver dispatcher. --Hyperlipidemia. Continue statin. -- BPH. Continue home medications. --Diabetic neuropathy. Continue gabapentin. -- Gout. Continue Lipitor. --Atrial fibrillation. Continue Eliquis. --DM2. BS monitoring with sliding scale insulin. --Acute on chronic diastolic CHF exacerbation. Dialysis schedule per receiver dispatcher. Daily weight and strict I/O. Continue supportive care. --Hyperlipidemia. Continue statin. --CAD with stents\PVD. Continue aspirin and statin. --Anemia of chronic disease. H&H stable. We will continue to monitor hemoglobin and transfuse if less than 7.0. --DVT prophylaxis with Eliquis. Discharge Plan: Home Plan to discharge in: Greater than 2 days - Advance Directives Does patient have a Living Will: No Does patient have a Durable POA for Healthcare: No - Code Status/Comfort Care Code Status Assessed: Yes Physician Review: Patient Assessed, Agree with Above Assessment and Plan Critical Care: No
[2023-03-24 09:32] LABS: Magnesium 1.9 mg/dL (1.6-2.4); Phosphorus 5.3 mg/dL (2.5-4.9)
[2023-03-24 09:33] LABS: Thyroid Stimulating Hormone 6.5 uIU/mL (0.358-3.740)
--- NOTE | 2023-03-24 10:05 | P.CNS ---
Date of Consult: 03/24/23 Reason for Consult: ESRD Requesting Physician: Quinn Albert Chief Complaint: Dyspnea History of Present Illness: 77 yo WM CKD, COPD presented to the ER with 24hrs of moderate, progressive dyspnea with associated hypoxia and weakness. 07:13 This 77 yrs old Male presents to ER via EMS with complaints of Shortness Of Breath. rt 07:13 Patient presents to the ED with dyspnea starting this evening. Reports of wheezing. He rt states that he does have a history of COPD, ESRD, last had dialysis on Friday. Denies other acute complaints at this time. Symptoms are severe in severity, no other aggravating alleviating factors. Patient was reportedly hypoxic to about 80% on room air at home. Allergies codeine Allergy (Verified 08/08/21 02:36) Shortness of breath Sulfa (Sulfonamide Antibiotics) Allergy (Verified 08/08/21 02:36) Shortness of breath Home medications list reviewed: Yes Home Medications: Atorvastatin Calcium 40 mg PO BEDTIME 08/02/18 Finasteride [Proscar*] 5 mg PO DAILY 08/02/18 Gabapentin 300 mg PO BEDTIME 08/02/18 Paroxetine HCl [Paxil] 20 mg PO DAILY 08/02/18 allopurinoL [Zyloprim*] 100 mg PO DAILY 08/03/18 Budesonide/Formoterol Fumarate [Symbicort 160-4.5 Mcg Inhaler] 2 puff IH BID #60 hfa.aer.ad 08/06/18 Cholecalciferol (Vitamin D3) [Vitamin D3] 25 mcg PO DAILY 08/08/21 Cyanocobalamin [Vitamin B-12*] 2,000 mcg PO DAILY 08/08/21 Ipratropium/Albuterol Sulfate [Combivent Respimat 20-100 Mcg] 1 puff IH Q6H PRN 08/08/21 Apixaban [Eliquis *] 2.5 mg PO BID #60 tablet 08/11/21 Furosemide [Lasix] 40 mg PO DAILY #30 tablet 08/11/21 Albuterol Neb [Proventil 0.083% Neb Soln] 3 ml NEB PRN PRN 09/04/22 Ipratropium Neb [Atrovent*] 2.5 ml NEB PRN PRN 09/04/22 Tamsulosin [Flomax*] 0.4 mg PO BEDTIME 09/04/22 Arformoterol Tartrate [Brovana] 15 mcg NEB BIDRESP #60 vial.neb 09/07/22 Cholecalciferol (Vitamin D3) [Vitamin D 1000 Iu Tab*] 1,000 unit PO DAILY #30 tab 09/07/22 Ipratropium Neb [Atrovent*] 0.5 mg NEB Q12H #60 amp 09/07/22 Melatonin 5 mg PO BEDTIME PRN PRN #30 09/07/22 Midodrine HCl [Proamatine*] 5 mg PO TID #90 tab 09/07/22 Heparin [Heparin 1,000 units/mL *] 2,000 unit IV EVERY HD PRN vial 10/31/22 Heparin [Heparin 1,000 units/mL *] 4,000 unit IV EVERY HD PRN vial 10/31/22 Hydrocodone 5/APAP 325 [Humphrey 5/325*] 1 tab PO Q6H PRN tab 10/31/22 Mannitol 25% [Mannitol*] 12.5 gm IV EVERY HD PRN vial 10/31/22 Meropenem [Merrem*] 1 gm IV DAILY #12 vial 10/31/22 Vancomycin 1 gm IV T,TH,S #5 vial 10/31/22 - Past Medical/Surgical History Diabetic: Yes -: COPD -: DM II with Polyneuropathy -: ESRD on HD -: HTN -: CAD s/p PCI -: HLD -: PAD/ AAA -: Diastolic CHF -: Anemia/ Iron Deficiency -: monoclonal gammopathy -: history of bladder cancer -: synovial chondromatosis -: Left Nephrectomy r/t 1994 -: Peripheral vascular disease -: Peripheral vascular disease Psychosocial/ Personal History: Patient is . - Family History Mother Medical History: Heart disease, Lung disease - Social History Smoking Status: Current every day smoker Alcohol use: No CD- Drugs: No Caffeine use: Yes Review of Systems 10-point ROS is otherwise unremarkable General: Weakness, Malaise Respiratory: SOB with Excertion Physical Examination General: In no apparent distress, Other (Somnolent) HEENT: Atraumatic Neck: Supple Respiratory: Crackles/rales (Right base) Cardiovascular: No edema, Regular rate/rhythm Gastrointestinal: Soft and benign, Non-distended Musculoskeletal: No clubbing, No contractures Integumentary: No rashes, No cyanosis Laboratory Data (last 24 hrs) 03/24/23 03/24/23 03/24/23 06:20 06:20 06:20 WBC Hgb Hct Plt Count PT 13.2 H INR 1.20 APTT 40.8 H Sodium 134 L Potassium 6.3 H* BUN 54 H Creatinine 4.63 H Glucose 122 H Phosphorus 5.3 H Magnesium 1.9 Total Bilirubin 0.4 AST 19 ALT 26 Alkaline Phosphatase 84 03/24/23 06:20 WBC 11.90 H Hgb 7.7 L Hct 24.6 L Plt Count 242 PT INR APTT Sodium Potassium BUN Creatinine Glucose Phosphorus Magnesium Total Bilirubin AST ALT Alkaline Phosphatase Imagings Data: LEFT VENTRICULAR WALL MOTION: NORMAL DOPPLER/COLOR FLOW: SEE BELOW COMMENTS: 1. NORMAL LEFT VENTRICULAR EJECTION FRACTION 55-60% 2. NORMAL WALL MOTION 3. MILD MITRAL REGURGITATION, AORTIC INSUFFICIENCY, TRICUSPID REGURGITATION 4. CALCIFIED AORTIC VALVE, NO AORTIC STENOSIS [id number] EXAM DESCRIPTION: RAD - Chest Single View - 03/24/2023 6:27 am CLINICAL HISTORY: The patient is 77 years old and is Male; COPD TECHNIQUE: Frontal view of the chest. COMPARISON: No relevant prior studies available. FINDINGS: Lungs: Patchy airspace opacities in the mid to lower left lung. Prominent interstitial markings which may represent chronic changes and/or mild interstitial edema. Pleural space: Unremarkable. No pneumothorax. Heart: Unremarkable. Mediastinum: Unremarkable. Bones/joints: Disc space narrowing with degenerative endplate changes in the spine. Degenerative changes in the glenohumeral joints. Tubes, lines and devices: Right central venous catheter with tip in the SVC. IMPRESSION: 1. Patchy airspace opacities in the mid to lower left lung. 2. Prominent interstitial markings which may represent chronic changes and/or mild interstitial edema. Conclusions/Impression: ESRD on HD -Arrange for acute HD today Hyponatremia Hyperkalemia -Arrange for acute HD today Diastolic CHF, A/C Acute hypoxic respiratory failure complicated by COPD -Acute HD with UF -Continue Oxygen supplementation Hypoalbuminemia -Start Nepro TID Anemia in CKD -Retacrit TIW -Transfuse PRBC prn CKD MBD -Start Ergo Hospitalist and ER notes reviewed
[2023-03-24] MEDS ORDERED: MANNITOL 25% 12.5 GM/50 ML VIAL IV PRN ×2 (11:12→13:27)
[2023-03-24] MEDS ORDERED: NA CHLORIDE 0.9% 1,000 ML IV PRN (11:12)
[2023-03-24] MEDS ORDERED: EPOETIN ALFA 10,000 UNIT/ML VIAL IV SCH (11:15)
[2023-03-24 11:40] VITALS: BMI 28.0
[2023-03-24] MEDS ORDERED: ALBUMIN HUMAN 25% 50 ML IV SCH (12:00)
[2023-03-24] MEDS ORDERED: DRISDOL (VITAMIN D=ERGOCALCIFEROL) 50000 UNIT CAP PO SCH (12:00)
[2023-03-24] MEDS ORDERED: GLUCAGON 1 MG/VIAL IM PRN (12:13)
[2023-03-24] MEDS ORDERED: D50W 25 GM/50 ML SYRINGE IV PRN (12:13)
[2023-03-24] MEDS ORDERED: D10W 125 ML IV PRN (12:22)
--- NOTE | 2023-03-24 13:08 | EKG ---
Test Date: 2023-03-24 Test Time: 06:14:47 Tank Builder: JORGE MEASUREMENT RESULTS: Intervals: Rate: 72 TN: 118 QRSD: 90 QT: 372 QTc: 407 [place]: P: TN: 118 QRS: 45 T: 72 INTERPRETIVE STATEMENTS: Sinus rhythm with premature supraventricular complexes Otherwise normal ECG Compared to ECG 03/24/2023 06:09:07 Atrial premature complex(es) now present Junctional rhythm no longer present ST (T wave) deviation no longer present Myocardial infarct finding no longer present Electronically Signed On 03-24-23 13:07:36 CDT by Deepak Goodrich
--- NOTE | 2023-03-24 13:09 | EKG ---
Test Date: 2023-03-24 Test Time: 06:09:07 Lobby Concierge: JORGE MEASUREMENT RESULTS: Intervals: Rate: 64 DC: QRSD: 88 QT: 396 QTc: 408 [facility]: P: DC: QRS: 53 T: 80 INTERPRETIVE STATEMENTS: Normal sinus rhythm Nonspecific T wave abnormalities. Abnormal ECG Electronically Signed On 03-24-23 13:09:00 CDT by Deepak Goodrich
--- NOTE | 2023-03-24 13:21 | RAD REPORT ---
EXAM DESCRIPTION: RAD - Chest Single View - 03/24/2023 6:27 am CLINICAL HISTORY: The patient is 77 years old and is Male; COPD TECHNIQUE: Frontal view of the chest. COMPARISON: No relevant prior studies available. FINDINGS: Lungs: Patchy airspace opacities in the mid to lower left lung. Prominent interstitial markings which may represent chronic changes and/or mild interstitial edema. Pleural space: Unremarkable. No pneumothorax. Heart: Unremarkable. Mediastinum: Unremarkable. Bones/joints: Disc space narrowing with degenerative endplate changes in the spine. Degenerative changes in the glenohumeral joints. Tubes, lines and devices: Right central venous catheter with tip in the SVC. IMPRESSION: 1. Patchy airspace opacities in the mid to lower left lung. 2. Prominent interstitial markings which may represent chronic changes and/or mild interstitial abebe ma. Electronically signed by: Babak Martin MD 03/24/2023 6:38 AM CDT Due to temporary technical issues with the PACS/Fluency reporting system, reports are being signed by the in house radiologist without review as a courtesy to ensure prompt reporting. The interpreting r adiologist is fully responsible for the content of the report.
[2023-03-24] MEDS: NEPRO SHAKE 237 ML CAN PO SCH ×2 (14:00→20:55)
[2023-03-24] MEDS: INSULIN -REGULAR HUMAN 50 UNIT/0.5 ML ML SQ SCH ×3 (16:02→20:49)
[2023-03-24 17:33] LABS: Hepatitis B surface AG Interp. Nonreactive (Nonreactive)
[2023-03-24 17:34] LABS: Hepatitis B Surface Ab - Quant < 3.10 mIU/mL (<8.0)
[2023-03-24] MEDS: HYDROCODONE/APAP 5/325 MG TAB PO PRN (18:48)
[2023-03-24] MEDS ORDERED: EPOETIN ALFA 10,000 UNIT/ML VIAL SQ SCH (20:00)
[2023-03-24] MEDS: DOCUSATE NA 100 MG CAP PO SCH (20:59)
[2023-03-24] MEDS ORDERED: APIXABAN 2.5 MG TABLET PO SCH (21:00)
[2023-03-24 22:58] VITALS: O2SAT 98
[2023-03-24 23:24] LABS: Potassium 3.6 mEq/L (3.5-5.1)
[2023-03-25] MEDS: HYDROCODONE/APAP 5/325 MG TAB PO PRN ×2 (02:41→15:23)
[2023-03-25 04:54] LABS: Absolute Lymphocytes (CBC) 0.5 K/uL (0.7-4.9); Hematocrit 23.4 % (39.6-49.0); MCV 94.6 fL (80-100); MPV 7.9 fL (7.6-11.3); Platelets 224 thou/uL (152-406); RBC Red Blood Cell Count 2.48 M/uL (4.33-5.43)
[2023-03-25 05:12] LABS: Potassium 3.7 mEq/L (3.5-5.1)
[2023-03-25] MEDS: INSULIN -REGULAR HUMAN 50 UNIT/0.5 ML ML SQ SCH ×2 (07:30→11:30)
[2023-03-25 08:16] LABS: Basophilic Stippling 1+; Blood Morphology Comment NOTED (NOT SEEN); Platelet Estimate ADEQ
[2023-03-25] MEDS: NEPRO SHAKE 237 ML CAN PO SCH ×2 (08:53→14:00)
[2023-03-25] MEDS: DOCUSATE NA 100 MG CAP PO SCH (08:53)
[2023-03-25] MEDS: ASPIRIN 81 MG CHEWABLE TABLET PO SCH (08:53)
[2023-03-25] MEDS ORDERED: AZITHROMYCIN IV 500 MG in NA CHLORIDE 0.9% 250 ML IVPB SCH (09:00)
[2023-03-25] MEDS ORDERED: DRISDOL (VITAMIN D=ERGOCALCIFEROL) 50000 UNIT CAP PO SCH (09:00)
[2023-03-25] MEDS ORDERED: CEFTRIAXONE 1,000 MG in NA CHLORIDE 0.9% 50 ML IVPB SCH (09:00)
[2023-03-25] MEDS ORDERED: MULTIVITAMINS,THERAPEUT 1 TAB PO SCH (09:00)
[2023-03-25 09:43] VITALS: BP 119/65; TEMP 97.7
--- NOTE | 2023-03-25 15:50 | P.DS ---
Admission Date: 03/24/23 Discharge Date: 03/25/23 Disposition: ROUTINE DISCHARGE Discharge Condition: GOOD Reason for Admission: Dyspnea Consultations: 1. Nephrology Hospital Course: DIAGNOSES: # Sepsis likely secondary to Left-Sided Community-Acquired Pneumonia # Hyperkalemia in End-Stage Renal Disease on [facility] iHD # Chronic Obstructive Pulmonary Disease # Anemia of Chronic Kidney Disease # Subclinical Hypothyroidism # Chronic Atrial Fibrillation # Type II Diabetes Mellitus # Monoclonal Gammopathy # S/P Left Nephrectomy (1994) # History of Bladder Cancer # Coronary Artery Disease s/p PCI # Peripheral Artery Disease # Chronic Compensated Diastolic Congestive Heart Failure # Hypertension # Dyslipidemia # Benign Prostatic Hyperplasia s/p LUTS # Tobacco Use Disorder HOSPITAL COURSE: Mr. Frank López is a pleasant 77-year-old male with a past medical history significant for end[facility]stage [facility], chronic obstructive pulmonary disease, paroxysmal atrial fibrillation, coronary artery disease s/p PCI, chronic diastolic congestive heart failure, peripheral artery disease, monoclonal gammopathy, hypertension, dyslipidemia, type 2 diabetes mellitus, benign prostatic hyperplasia, and tobacco use disorder who was admitted to the [facility] on 03/24/2023 for shortness of breath and cough. He was admitted to the Medicine service. Upon further evaluation, he was found to have hyperkalemia as well as sepsis secondary to a left-sided community- acquired pneumonia. Nephrology was consulted and he was started on IV antibiotics. He was evaluated by Dr. Carrillo and underwent hemodialysis, with improvement in his electrolytes and respiratory status. This morning, he felt significantly better and requested to be discharged home. Incidentally, he was noted to have a gradually down-trending hemoglobin. He denies any evidence of bleeding, specifically denying any hemoptysis, hematemesis, hematochezia, or melena. I reviewed this with Dr. Carrillo, who was able to pull his outside lab tests. We believe that the drop of his hemoglobin may be secondary to his erythropoiesis-stimulating agents being held when his hemoglobin went above 11.0. From his standpoint, Dr. Carrillo cleared him for discharge and stated that he will follow his hemoglobin levels closely as an outpatient. On 03/25/2023, he was seen on rounds and deemed medically stable for discharge. He was provided prescriptions for amoxicillin-clavulanate and doxycycline. He was given the opportunity to ask questions and reported no further questions. Furthermore, all questions were answered to the best of my ability. A copy of this discharge summary will be sent to the above providers to facilitate continuity of care. Today, I personally spent 25 minutes on his case, of which greater than 50% of the time was spent in patient education, counseling, and coordination of care as described above. Vital Signs/Physical Exam: Temp Pulse Resp BP Pulse Ox 97.7 F 75 19 119/65 93 03/25/23 08:00 03/25/23 08:00 03/25/23 08:00 03/25/23 08:00 03/25/23 08:00 General: Alert, In no apparent distress, Oriented x3 HEENT: Atraumatic, Mucous membr. moist/pink, Sclerae nonicteric Neck: JVD not distended Respiratory: Clear to auscultation bilaterally, Normal air movement Cardiovascular: Regular rate/rhythm, Normal S1 S2, No gallops, No rubs, No murmurs, Edema (trace BLE) Gastrointestinal: Normal bowel sounds, Soft and benign, Non-distended, No tenderness, No rebound, No guarding Musculoskeletal: No clubbing Integumentary: No rashes Neurological: Normal speech, Normal affect Laboratory Data at Discharge: WBC 9.10 thou/uL (4.3-10.9) 03/25/23 03:43 Hgb 7.5 g/dL (13.6-17.9) L 03/25/23 03:43 Hct 23.4 % (39.6-49.0) L 03/25/23 03:43 Plt Count 224 thou/uL (152-406) 03/25/23 03:43 PT 13.2 SECONDS (9.5-12.5) H 03/24/23 06:20 INR 1.20 03/24/23 06:20 APTT 40.8 SECONDS (24.3-36.9) H 03/24/23 06:20 Sodium 139 mEq/L (136-145) 03/25/23 03:43 Potassium 3.7 mEq/L (3.5-5.1) 03/25/23 03:43 BUN 41 mg/dL (7-18) H 03/25/23 03:43 Creatinine 3.07 mg/dL (0.70-1.30) H 03/25/23 03:43 Glucose 150 mg/dL (74-106) H 03/25/23 03:43 Phosphorus 5.3 mg/dL (2.5-4.9) H 03/24/23 06:20 Magnesium 1.9 mg/dL (1.6-2.4) 03/24/23 06:20 Total Bilirubin 0.4 mg/dL (0.2-1.0) 03/24/23 06:20 AST 19 U/L (15-37) 03/24/23 06:20 ALT 26 U/L (16-61) 03/24/23 06:20 Alkaline Phosphatase 84 U/L (45-117) 03/24/23 06:20 Triglycerides 59 mg/dL (<150) 03/25/23 03:43 Cholesterol 79 mg/dL (<200) 03/25/23 03:43 HDL Cholesterol 42 mg/dL (40-60) 03/25/23 03:43 Cholesterol/HDL Ratio 1.88 03/25/23 03:43 Home Medications: Atorvastatin Calcium 40 mg PO BEDTIME 08/02/18 Finasteride [Proscar*] 5 mg PO DAILY 08/02/18 Gabapentin 300 mg PO BEDTIME 08/02/18 Paroxetine HCl [Paxil] 20 mg PO DAILY 08/02/18 allopurinoL [Zyloprim*] 100 mg PO DAILY 08/03/18 Budesonide/Formoterol Fumarate [Symbicort 160-4.5 Mcg Inhaler] 2 puff IH BID #60 hfa.aer.ad 08/06/18 Cholecalciferol (Vitamin D3) [Vitamin D3] 25 mcg PO DAILY 08/08/21 Cyanocobalamin [Vitamin B-12*] 2,000 mcg PO DAILY 08/08/21 Ipratropium/Albuterol Sulfate [Combivent Respimat 20-100 Mcg] 1 puff IH Q6H PRN 08/08/21 Apixaban [Eliquis *] 2.5 mg PO BID #60 tablet 08/11/21 Furosemide [Lasix] 40 mg PO DAILY #30 tablet 08/11/21 Albuterol Neb [Proventil 0.083% Neb Soln] 3 ml NEB PRN PRN 09/04/22 Ipratropium Neb [Atrovent*] 2.5 ml NEB PRN PRN 09/04/22 Tamsulosin [Flomax*] 0.4 mg PO BEDTIME 09/04/22 Arformoterol Tartrate [Brovana] 15 mcg NEB BIDRESP #60 vial.neb 09/07/22 Cholecalciferol (Vitamin D3) [Vitamin D 1000 Iu Tab*] 1,000 unit PO DAILY #30 tab 09/07/22 Ipratropium Neb [Atrovent*] 0.5 mg NEB Q12H #60 amp 09/07/22 Melatonin 5 mg PO BEDTIME PRN PRN #30 09/07/22 Midodrine HCl [Proamatine*] 5 mg PO TID #90 tab 09/07/22 Heparin [Heparin 1,000 units/mL *] 2,000 unit IV EVERY HD PRN vial 10/31/22 Heparin [Heparin 1,000 units/mL *] 4,000 unit IV EVERY HD PRN vial 10/31/22 Hydrocodone 5/APAP 325 [[place] 5/325*] 1 tab PO Q6H PRN tab 10/31/22 Mannitol 25% [Mannitol*] 12.5 gm IV EVERY HD PRN vial 10/31/22 Amox/Clavulanate [Augmentin 500-125 mg Tab*] 500 mg PO Q12HR 7 Days #14 tab 03/25/23 Doxycycline Hyclate 100 mg PO BID 7 Days #14 tab 03/25/23 New Medications: Amox/Clavulanate [Augmentin 500-125 mg Tab*] 500 mg PO Q12HR 7 Days #14 tab Doxycycline Hyclate 100 mg PO BID 7 Days #14 tab Physician Discharge Instructions: 1. Please call and schedule a follow-up appointment with your PCP in 3-5 days - Please have your PCP recheck your hemoglobin at your next appointment - Please have your PCP repeat your chest x-ray in 2-3 weeks to make sure your pnuemonia has fully healed - Your thyroid blood tests were slightly abnormal. Please repeat blood work with your PCP. 2. Please call and schedule a follow-up appointment with Nephrology (Dr. Carrillo) in 3-5 days - He will repeat your blood work at your next visit - As we discussed, please make sure to maintain a potassium-restricted diet Diet: Renal Activity: Ad aydin Followup: Unknown,U [Primary Care Provider] - Mario Alberto Carrillo DO [ACTIVE - CAN ADMIT] - Time spent managing pt's care (in minutes): 25
[2023-03-25] MEDS ORDERED: DOXYCYCLINE 100 MG CAP PO SCH (21:00)
[2023-03-25] MEDS ORDERED: AMOX/K CLAV 500 MG TAB PO SCH (21:00)
--- NOTE | 2023-03-25 21:25 | P.PN ---
Date of Service: 03/25/23 Vital Signs Temp Pulse Resp BP Pulse Ox 97.7 F 75 19 119/65 93 03/25/23 08:00 03/25/23 08:00 03/25/23 08:00 03/25/23 08:00 03/25/23 08:00 Microbiology Results 03/24/23 06:20 Blood - Blood Aerobic Blood Culture - Preliminary No growth in 24 hours. 03/24/23 06:20 Blood - Blood Anaerobic Blood Culture - Preliminary No growth in 24 hours. 03/24/23 06:01 Blood - Blood Aerobic Blood Culture - Preliminary No growth in 24 hours. 03/24/23 06:01 Blood - Blood Anaerobic Blood Culture - Preliminary No growth in 24 hours. Assessment/ Plan: Nephrology No dyspnea No chest pain Feeling better Left shoulder pain No acute events overnight Vitals, medications, blood work and imaging reviewed in the chart. Physical Examination General: In no apparent distress HEENT: Atraumatic Neck: Supple Respiratory: Crackles/rales (Right base) Cardiovascular: No edema, Regular rate/rhythm Gastrointestinal: Soft and benign, Non-distended Musculoskeletal: No clubbing, No contractures Integumentary: No rashes, No cyanosis Laboratory Data (last 24 hrs) 03/24/23 03/24/23 03/24/23 06:20 06:20 06:20 WBC Hgb Hct Plt Count PT 13.2 H INR 1.20 APTT 40.8 H Sodium 134 L Potassium 6.3 H* BUN 54 H Creatinine 4.63 H Glucose 122 H Phosphorus 5.3 H Magnesium 1.9 Total Bilirubin 0.4 AST 19 ALT 26 Alkaline Phosphatase 84 03/24/23 06:20 WBC 11.90 H Hgb 7.7 L Hct 24.6 L Plt Count 242 PT INR APTT Sodium Potassium BUN Creatinine Glucose Phosphorus Magnesium Total Bilirubin AST ALT Alkaline Phosphatase Imagings Data: LEFT VENTRICULAR WALL MOTION: NORMAL DOPPLER/COLOR FLOW: SEE BELOW COMMENTS: 1. NORMAL LEFT VENTRICULAR EJECTION FRACTION 55-60% 2. NORMAL WALL MOTION 3. MILD MITRAL REGURGITATION, AORTIC INSUFFICIENCY, TRICUSPID REGURGITATION 4. CALCIFIED AORTIC VALVE, NO AORTIC STENOSIS [id number] EXAM DESCRIPTION: RAD - Chest Single View - 03/24/2023 6:27 am CLINICAL HISTORY: The patient is 77 years old and is Male; COPD TECHNIQUE: Frontal view of the chest. COMPARISON: No relevant prior studies available. FINDINGS: Lungs: Patchy airspace opacities in the mid to lower left lung. Prominent interstitial markings which may represent chronic changes and/or mild interstitial edema. Pleural space: Unremarkable. No pneumothorax. Heart: Unremarkable. Mediastinum: Unremarkable. Bones/joints: Disc space narrowing with degenerative endplate changes in the spine. Degenerative changes in the glenohumeral joints. Tubes, lines and devices: Right central venous catheter with tip in the SVC. IMPRESSION: 1. Patchy airspace opacities in the mid to lower left lung. 2. Prominent interstitial markings which may represent chronic changes and/or mild interstitial edema. Conclusions/Impression: ESRD on HD -HD TIW Hyponatremia Hyperkalemia -HD TIW Diastolic CHF, A/C Acute hypoxic respiratory failure complicated by COPD -HD with UF -Continue Oxygen supplementation -Low sodium diet Hypoalbuminemia -Continue Nepro TID Anemia in CKD -Retacrit TIW -Transfuse PRBC prn CKD MBD -Continue Ergo Case reviewed with Dr. Albert Hospitalist and ER notes reviewed
== END 2023-03-25 16:53 | disposition home or self-care (01) ==
LOC: ER 06:00 → INTOOBSV 08:53 → ERHOLD 08:53 → 2ND 10:10
PROVIDERS: ADMIT Internal Medicine; ATTEND Internal Medicine
DX: J18.9 Pneumonia, unspecified organism (principal); A41.9 Sepsis, unspecified organism; I48.11 Longstanding persistent atrial fibrillation; N18.6 End stage renal disease; J44.1 Chronic obstructive pulmonary disease with (acute) exacerbation; I50.33 Acute on chronic diastolic (congestive) heart failure; I25.10 Atherosclerotic heart disease of native coronary artery without angina pectoris; I73.9 Peripheral vascular disease, unspecified; D63.1 Anemia in chronic kidney disease; E87.5 Hyperkalemia; E78.5 Hyperlipidemia, unspecified; N40.0 Benign prostatic hyperplasia without lower urinary tract symptoms; E11.40 Type 2 diabetes mellitus with diabetic neuropathy, unspecified; E87.1 Hypo-osmolality and hyponatremia; E88.09 Other disorders of plasma-protein metabolism, not elsewhere classified; M10.9 Gout, unspecified; D47.2 Monoclonal gammopathy; E03.9 Hypothyroidism, unspecified; Z95.5 Presence of coronary angioplasty implant and graft; Z79.4 Long term (current) use of insulin; Z79.01 Long term (current) use of anticoagulants; Z88.6 Allergy status to analgesic agent; Z88.2 Allergy status to sulfonamides; Z99.2 Dependence on renal dialysis; Z85.51 Personal history of malignant neoplasm of bladder; Z90.5 Acquired absence of kidney; Z87.891 Personal history of nicotine dependence
CPT/HCPCS: 93005 ×2; 87040 ×2; 85025 ×2; 80048 ×2; 36415 ×2; 83735; 84100; 85610; 80061; 82947 ×3; 83605; 85730; 84443; 84484; 84439; 80053; 83880; 87340; 86706; 71045; 90935; 94640; 99285; J1815 ×2; J1644 ×3; Q4081; J0612; J2150; J7613; J7644; J2930; J0696 ×2; J7050 ×3; J7040